=== PATIENT | male | born 1930 | race Caucasian/White ===

== ENCOUNTER 2016-11-17 10:03 | Inpatient (IN) | payer OTHER ==
--- NOTE | 2016-11-17 10:48 | PDOC ---
History of Present Illness - General Stated Complaint: FALL Time Seen by Provider: 11/17/16 10:14 History Source: Patient, Care Provider, Family (Daughter) Exam Limitations: Other (Confusion) - History of Present Illness Initial Comments: 11/17/16 11:02 Patient is an 85 yo male on [facility] who was found down and BIBA after an unwitnessed fall. Patient is confused and a poor historian with a changing and inconsistent story. Patient states he fell outside at 20:00 last night and was helped inside by a stranger. Caregiver states the patient did not answer the door this morning when she arrived and after she gained access to the home she found the patient lying on the floor beside the bed with the covers pulled on top of him. Patient claimed he was unable to get up or call out because of weakness. Patient was unsure if he struck his head, unclear on LOC and time and location of fall. Additional information was obtained from the daughter, Yesi ([phone]). 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 Patient lives alone and is moderately functional and oriented at baseline. He ambulates with the use of a cane or walker and has a caregiver assisting with ADL during week days but not at night. Daughter stated patient is more confused and less oriented that baseline. PCP Angie Past History - Past Medical History Allergies/Adverse Reactions: Allergies Allergy/AdvReac Type Severity Reaction Status Date / Time No Known Allergies Allergy Verified 11/17/16 12:03 Home Medications: Ambulatory Orders Levothyroxine [Synthroid -] 88 mcg PO DAILY 10/29/12 Metoprolol Succinate [Toprol XL -] 25 mg PO DAILY 10/29/12 Simvastatin [Zocor -] 20 mg PO HS 10/29/12 Lisinopril [Prinivil] 5 mg PO DAILY #0 tablet 11/02/12 Furosemide [Lasix] 20 mg PO ASDIR 11/17/16 Cancer: Yes (THROAT) Cardiac Disorders: Yes HTN: Yes Hypercholesterolemia: Yes Thyroid Disease: Yes - Surgical History Orthopedic Surgery: Yes (L. Leg) - Psycho/Social/Smoking Cessation Hx Suicidal Ideation: No Smoking Status: No Smoking History: Never smoked Have you smoked in the past 12 months: No Number of Cigarettes Smoked Daily: 0 Hx Alcohol Use: Yes (3 beers daily) Drug/Substance Use Hx: Yes Substance Use Type: Alcohol Hx Substance Use Treatment: No Review of Systems - Review of Systems Able to Perform ROS?: Yes (Limited by mental status) Comments:: ROS is difficult to obtain due to patients confusion GEN: Denies fever, chills, recent illness HEENTM: Denies sore throat, recent vision or hearing changes, ringing in ears Respiratory: Denies cough, shortness of breath Cardiac: Denies chest pain, LOC ABD/GI: Denies new abdominal pain, nausea, vomiting, diarrhea, constipation : Denies dysuria; Endorses urinary retention0 Musculoskeletal: Endorses pain to left forearm Integumentary: Denies diaphoresis, rashes, bruises Neurological: Denies DONALD, dizziness, weakness in ED but endorses weakness earlier , chronic left LE weakness and foot drop from previous injury All Other Systems Reviewed and Negative Is the patient limited Pashto proficient: No *Physical Exam - Physical Exam Comments: GENERAL: AAOx2 (self and situation but not to year), nourished and generally well appearing, NAD HEAD: 2kng2by abrasion to right forehead, no active bleeding or edema EYES: PERRLA, EOMI, sclera anicteric, conjunctiva clear, no raccoon eyes ENT: hearing grossly normal, 5x5mm laceration to superior aspect of left helix, TM intact b/l, no blood in external auditory canals b/l, no villarreal signs, nares patent, no nasal discharge, no congestion, MMM NECK: supple, normal ROM, no LAD, no JVD, no masses, no cervical tenderness RESP: speaking in full sentences, symmetrical chest expansion, no respiratory distress, lungs CTAB HEART: normal rate, regularly irregular rhythm, normal S1-S2, no MRG ABDOMEN: soft, NTND, no guarding, no rebound. EXTREMITIES: superficial 3 cm skin tear to proximal forearm at elbow, no active bleeding, normal ROM, left leg weakness and foot drop 2/2 previous injury/ surgery, tortuous varicose veins. NEUROLOGICAL: CN II-XII grossly intact, normal speech, normal gait, no focal sensorimotor deficits, UE/LE strength 5/5 b/l except as noted, sensation intact b/l UE/LE, no facial droop or decreased tone or sensation loss, normal finger-to -nose SKIN: warm, dry, normal turgor, no rashes or lesions noted. ED Treatment Course - LABORATORY CBC & Chemistry Diagram: 11/17/16 11:55 11/17/16 11:55 - RADIOLOGY Radiograph Interpretation: 11/17/16 12:23 EXAM: CT HEAD WITHOUT CONTRAST INDICATION: Fall. Head trauma. Confusion. TECHNIQUE: Contiguous axial CT images of the head were obtained without contrast. Coronal and sagittal reconstructions obtained. COMPARISON: 09/03/[address] FINDINGS: There is no acute intracranial hemorrhage or focal extra-axial collection. There is no compelling evidence of acute transcortical infarction at this time. MRI is much more sensitive in detecting acute infarctions. Small chronic infarcts are noted in the right parietal lobe, left occipital lobe and also within the anterior left frontal lobe extending towards the stephens radiata. There is generalized age-related cerebral and cerebellar parenchymal volume loss secondary prominence of the CSF spaces. There is no mass effect, midline shift or hydrocephalus. There is patchy hypoattenuation scattered within the cerebral white matter, gangliocapsular regions and thalami, most likely reflecting microvascular ischemic changes. There is dense calcific atherosclerosis along the intradural segments of the vertebral arteries, cavernous and supraclinoid segments of bilateral internal carotid arteries. The calvarium is intact. The visualized paranasal sinuses and mastoid air cells are clear. There is a defect in the anterior nasal septal, unchanged. There is a chronic deformity along the left orbital floor, unchanged. IMPRESSION: 1. No acute intracranial hemorrhage or acute skull fracture. No mass effect, midline shift or hydrocephalus. 2. Bilateral small chronic cerebral infarcts and microvascular ischemic changes as described above. [id number] RAD/CHEST X-RAY PORTABLE* AMS. Semierect portable chest x-ray. Comparison study October 29, 2012. Cardiomegaly. No evidence of pneumothorax. The pulmonary vasculature is normal. Left lower lung zone obscured by the cardiac silhouette, soft tissues of the chest. Degenerative changes in the region of the right greater tuberosity. Impression. Cardiomegaly. No evidence of CHF, pneumothorax, airspace opacities in the visualized lungs. Left lower lung zone obscured by the cardiac silhouette, soft tissues of the chest. 11/17/16 12:24 Medical Decision Making - Medical Decision Making 11/17/16 10:40 85 yo male found down for unknown duration after an unwitnessed fall and increased confusion over baseline, general weakness Ddx includes but is not limited to CVA, cardiac arrhythmia, ACS, metabolic derangement, infections (UTI, PNA), rhabdomyolysis Plan: IV, Monitor Fluids ECG CXR CBC, CMP, CPK cardiac enzymes UA CT head Monitor and reassess Consider admission Consider blood and urine cultures 11/17/16 12:19 CBC WBC 10.1 K/mm3 (4.0-10.0) H D 11/17/16 11:55 RBC 4.40 M/mm3 (4.00-5.60) 11/17/16 11:55 Hgb 14.8 GM/dL (11.7-16.9) 11/17/16 11:55 Hct 43.9 % (35.4-49) 11/17/16 11:55 MCV 99.8 fl (80-96) H 11/17/16 11:55 MCH 33.7 pg (25.7-33.7) 11/17/16 11:55 MCHC 33.8 g/dl (32.0-35.9) 11/17/16 11:55 RDW 12.4 % (11.9-15.9) 11/17/16 11:55 Plt Count 192 K/MM3 (134-434) D 11/17/16 11:55 MPV 8.5 fl (7.5-11.1) 11/17/16 11:55 Neutrophils % 79.2 % (42.8-82.8) 11/17/16 11:55 Lymphocytes % 9.9 % (8-40) D 11/17/16 11:55 Monocytes % 10.5 % (3.8-10.2) H 11/17/16 11:55 Eosinophils % 0.1 % (0-4.5) D 11/17/16 11:55 Basophils % 0.3 % (0-2.0) 11/17/16 11:55 Mild leukocytosis, not overly concerning Urine Test Results Urine Color Ltyellow 11/17/16 11:55 Urine Appearance Cloudy 11/17/16 11:55 Urine pH 6.0 (5.0-8.0) 11/17/16 11:55 Urine Protein 1+ (NEGATIVE) H 11/17/16 11:55 Urine Glucose (UA) Negative (NEGATIVE) 11/17/16 11:55 Urine Ketones 1+ (NEGATIVE) H 11/17/16 11:55 Urine Blood 2+ (NEGATIVE) H 11/17/16 11:55 Urine Nitrite Positive (NEGATIVE) 11/17/16 11:55 Urine Bilirubin Negative (NEGATIVE) 11/17/16 11:55 Ur Leukocyte Esterase 3+ (NEGATIVE) H 11/17/16 11:55 Positive for UTI with hematurea, possibly complicated, Start Rocephin 1g 11/17/16 12:23 CT shows no acute intracranial hemorrhage or acute skull fracture. No mass effect, midline shift or hydrocephalus. Bilateral small chronic cerebral infarcts and microvascular ischemic changes. CXR significant for cardiomegaly without evidence of CHF, pneumothorax, airspace opacities in the visualized lungs. Delirium on dementia in an elderly patient with evidence of UTI is mildly concerning, plan to consult with PCP regarding admission 11/17/16 12:42 Reassessed patient following 600 ml NS, Lungs CTAB, no difficulty breathing 11/17/16 13:15 CMP Sodium 135 mmol/L (136-145) L 11/17/16 11:55 Potassium 4.6 mmol/L (3.5-5.1) 11/17/16 11:55 Chloride 97 mmol/L (98-107) L 11/17/16 11:55 Carbon Dioxide 28 mmol/L (21-32) 11/17/16 11:55 Anion Gap 10 (8-16) 11/17/16 11:55 BUN 15 mg/dL (7-18) 11/17/16 11:55 Creatinine 1.0 mg/dL (0.7-1.3) 11/17/16 11:55 Creat Clearance w eGFR > 60 (>60) 11/17/16 11:55 Random Glucose 137 mg/dL (74-106) H D 11/17/16 11:55 Calcium 9.5 mg/dL (8.5-10.1) 11/17/16 11:55 Total Bilirubin 3.2 mg/dL (0.2-1.0) H D 11/17/16 11:55 AST 45 U/L (15-37) H D 11/17/16 11:55 ALT 26 U/L (12-78) 11/17/16 11:55 Alkaline Phosphatase 93 U/L (45-117) 11/17/16 11:55 Creatine Kinase 946 IU/L (39-308) H 11/17/16 11:55 Creatine Kinase Index 1.3 % (0.0-5.0) 11/17/16 11:55 CK-MB (CK-2) 13.030 ng/mL (0.5-3.6) H 11/17/16 11:55 Troponin I 0.15 ng/ml (0.00-0.05) H D 11/17/16 11:55 Total Protein 8.1 g/dl (6.4-8.2) 11/17/16 11:55 Albumin 3.9 g/dl (3.4-5.0) 11/17/16 11:55 Mild decreased sodium and chloride, should improve with NS bolus CK/BUN reassuring for CASIE from rhabdomyolysis Mild elevation of liver enzymes Elevated CK consistent with fall, concerning for rhabdomyolysis Elevation in cardiac enzymes, concerning for ACS Spoke with Dr. Bertram Teran (admittinig for Dr. Adams) who agreed with admission to inpatient Tele and requested that blood and urine cultures be sent Patient had just received Rocephin 1g prior to having blood cultures draw Ordered repeat Troponin Patient admitted and sent to the floor *DC/Admit/Observation/Transfer Diagnosis at time of Disposition: Confused, Elevation of cardiac enzymes UTI (urinary tract infection) Qualifiers: Urinary tract infection type: acute cystitis Hematuria presence: with hematuria Qualified Code(s): N30.01 - Acute cystitis with hematuria - Discharge Dispostion Admit: Yes
[2016-11-17] MEDS ORDERED: SODIUM CHLORIDE 1,000 ML IV STA (10:50)
--- NOTE | 2016-11-17 11:03 | PDOC ---
Attending Attestation - Resident Resident Name: Betty Jeffersonn - ED Attending Attestation I have performed the following: I have examined & evaluated the patient, The case was reviewed & discussed with the resident, I agree w/resident's findings & plan, Exceptions are as noted - Medical Decision Making 11/17/16 10:59 85 yo M h/o HTN HLD , hypothyroid afib, here s/p fall last pm. pt was on floor all night. lives alone, has home health aid during day 4/days/ week. unable to walk following floor because felt generalized weakness. h/o prior left foot drop ( old). he normally uses cane or walker. per aid. pt was found on the floor, unable to walk today. more confused. speech seems clear per aid. no recent f/c n/v. no recent falls. plan differential cva ( although nonfocal exam), dehyration electrolyte abnormality. infection such as uti or pna, plan labs ekg ct head r/o ich , cxr ua . coral admit tele possible synocpe, pt eval as pt can't walk and unsafe for dc home. <Margaret Pollock - Last Filed: 11/17/16 12:04> - HPI HPI: 11/17/16 12:15 The patient is a 85 year old male, ambulatory by walker, with a significant past medical history of HTN, HLD, Hypothyroidism, Atrial fibrillation, R foot drop, [place] (2016), CVA who presents to the emergency department S/P fall today. Patient states he fell on his L side and was unable to get up due to generalized weakness. As per aide, patient was found on the floor when she came to his home. Patient sustained L arm bruise and small abrasion to his forehead.. Patient denies any head trauma, LOC, nausea or vomiting. As per nursing informatics analyst, patient appears increasingly confused however speech is clear. He denies chest pain, headache or dizziness. He denies fever, chills, abdominal pain, nausea, vomit, diarrhea or constipation. He denies dysuria, frequency, urgency or hematuria. Allergies: NKA Past surgical history: L foot surgery Social history: Occasional alcohol consumption PCP: Dr. Adams - Physicial Exam PE: 11/17/16 12:15 GENERAL: Awake, alert, and oriented x2. Disoriented to year. In no acute distress HEAD: + Small abrasion to R forehead. EYES: PERRLA, EOMI, sclera anicteric, conjunctiva clear ENT: Auricles normal inspection, nares patent, Moist mucosa NECK: Normal ROM, supple, no lymphadenopathy, JVD, or masses LUNGS: Breath sounds equal, clear to auscultation bilaterally. No wheezes, and no crackles HEART: Regular rate and rhythm, normal S1 and S2, no murmurs, rubs or gallops ABDOMEN: Soft, nontender, normoactive bowel sounds. No guarding, no rebound. No masses EXTREMITIES: Full ROM, no edema. No clubbing or cyanosis. No cords, erythema, or tenderness. + L elbow superficial skin avulsion/ skin tear 1 inch in length. NEUROLOGICAL: Alert, awake, appropriate. Cranial nerves 2-12 intact. No deficits to light touch and temperature in face, upper extremities and lower extremities. No motor deficits in the in face, upper extremities and lower extremities. Normoreflexic in the upper and lower extremities. Normal speech. Toes are downgoing bilaterally. Gait not tested. Finger to nose intact. Visual rodriguez intact. SKIN: Warm, Dry, normal turgor, no rashes or lesions noted. - Medical Decision Making 11/17/16 12:15 CXR Impression. Cardiomegaly. No evidence of CHF, pneumothorax, airspace opacities in the visualized lungs. Left lower lung zone obscured by the cardiac silhouette , soft tissues of the chest. Reported By: Alphonso Shook MD Head CT IMPRESSION: 1. No acute intracranial hemorrhage or acute skull fracture. No mass effect, midline shift or hydrocephalus. 2. Bilateral small chronic cerebral infarcts and microvascular ischemic changes as described above. Reported By: Neftali Slater MD Documentation prepared by Yaima Sims, acting as biomedical equipment support specialist for Margaret Pollock MD <Yaima Sims - Last Filed: 11/17/16 12:18> Heart Score/ECG Review #1 General ECG Interpretation: Normal Rate (96), Normal Intervals, No acute ischemic changes 11/17/16 12:[address] elevation nor depression. - ECG Intrepretation Rhythm: Irregularly Irregular Comment:: 11/17/16 12:04 atrial fibrillation - [place]: Normal <Margaret Pollock - Last Filed: 11/17/16 12:04>
[2016-11-17 12:06] LABS: BASOPHIL 0.3 % (0-2.0); EOSINOPHIL 0.1 % (0-4.5); MCH 33.7 pg (25.7-33.7); MCHC 33.8 g/dl (32.0-35.9); MEAN CELL VOLUME 99.8 fl (80-96); MEAN PLT VOLUME 8.5 fl (7.5-11.1); NEUTROPHILS 79.2 % (42.8-82.8); PLATELET COUNT 192 K/MM3 (134-434); RDW 12.4 % (11.9-15.9); WHITE BLOOD COUNT 10.1 K/mm3 (4.0-10.0)
[2016-11-17 12:09] LABS: URINE APPEARANCE CLOUDY; URINE BILIRUBIN NEGATIVE (NEGATIVE); URINE BLOOD 2+ (NEGATIVE); URINE COLOR LTYELLOW; URINE GLUCOSE (UA) NEGATIVE (NEGATIVE); URINE KETONE 1+ (NEGATIVE); URINE NITRITE POSITIVE (NEGATIVE); URINE UROBILINOGEN NEGATIVE mg/dL (0.2-1.0)
[2016-11-17 12:11] LABS: URINE LEUK ESTERASE 3+ (NEGATIVE); URINE PROTEIN 1+ (NEGATIVE)
[2016-11-17 12:23] LABS: URINE HYALINE CAST 1 /lpf; URINE MUCUS RARE; URINE RBC 1 /hpf (0-3); URINE WBC 202 /hpf (3-5)
[2016-11-17 12:25] LABS: URINE BACTERIA MODERATE /hpf (NONE SEEN)
[2016-11-17 12:30] LABS: ALBUMIN 3.9 g/dl (3.4-5.0); ANION GAP 10 (8-16); CALCIUM 9.5 mg/dL (8.5-10.1); CO2 28 mmol/L (21-32); GLUCOSE,RANDOM 137 mg/dL (74-106); SGOT/AST 45 U/L (15-37)
[2016-11-17] MEDS ORDERED: CEFTRIAXONE 1 GM in DEXTROSE 5%-WATER - 100 ML IVPB ONE (12:31)
[2016-11-17 12:43] LABS: ALK PHOS 93 U/L (45-117); BILIRUBIN,TOTAL 3.2 mg/dL (0.2-1.0); CPK 946 IU/L (39-308); SGPT/ALT 26 U/L (12-78); TOT PROT 8.1 g/dl (6.4-8.2); TROPONIN I 0.15 ng/ml (0.00-0.05)
[2016-11-17] MEDS ORDERED: CEFTRIAXONE 50 ML ONE (13:21)
[2016-11-17] MEDS ORDERED: ASPIRIN 81 MG CHEWABLE TABLETS PO ONE (14:15)
[2016-11-17] MEDS ORDERED: ASPIRIN 81 MG CHEWABLE TABLETS ONE (14:57)
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
[2016-11-17] MEDS ORDERED: ONDANSETRON 4 MG/2 ML VIAL IVPB PRN (16:24)
[2016-11-17] MEDS ORDERED: SODIUM CHLORIDE 1,000 ML IV SCH (16:30)
[2016-11-17 17:44] VITALS: BMI 28.0
--- NOTE | 2016-11-17 21:01 | CON.CARD ---
Cardiology Consult (text) - Consultation Consultation Note: CC: elevated cardiac enzymes. 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 fall in setting of dizziness/weakness in legs trying to get up from chair. no loc. was on floor overnight, unable to pick himself up. prior to fall was already dizzy and had already almost fallen, but was caught by someone. prior to episode has not had decreased exercise capacity. States he has felt strong and has been walking regularly. no recent poor po intake. However, has resumed drinking about 2 beers a day.. Denies drinking extra on day of fall. endorses chronic cough with eating. otherwise denies infectious sx's. no f/c/s , n/v/d, h/a, congestion. LE edema improved from prior. no sob, orthopnea, pnd, cp, palps. sees me for cardio pmhx/pshx: per hpi social hx: etoh abuse, former smoker. Lives by himself with homemaker, fam hx; no cad or cardiomyopathy ros; per hpi, no rashes, Ambulatory Orders Levothyroxine [Synthroid -] 88 mcg PO DAILY 10/29/12 Metoprolol Succinate [Toprol XL -] 25 mg PO DAILY 10/29/12 Simvastatin [Zocor -] 20 mg PO HS 10/29/12 Lisinopril [Prinivil] 5 mg PO DAILY #0 tablet 11/02/12 Furosemide [Lasix] 20 mg PO ASDIR 11/17/16 CV meds based on my office notes: metoprolol succinate 25 mg/day, lisinopril 2.5 mg/day, aldactone 25 mg/day, eliquis 5 mg bid Current Medications Acetaminophen (Tylenol -) 650 mg PO Q4H PRN PRN Reason: FEVER OR PAIN Atorvastatin Calcium (Lipitor -) 10 mg PO HS [facility] Enoxaparin Sodium (Lovenox -) 40 mg SQ DAILY [facility] Sodium Chloride (Normal Saline -) 1,000 mls @ 100 mls/hr IV ASDIR NELSY Last Admin: 11/17/16 17:07 Dose: 100 mls/hr Ceftriaxone Sodium 1 gm/ (Dextrose) 50 mls @ 100 mls/hr IVPB DAILY [facility] Lactobacillus Acidophilus (Bacid -) 1 tab PO DAILY [facility] Levothyroxine Sodium (Synthroid -) 88 mcg PO DAILY@0700 [facility] Lisinopril (Prinivil) 5 mg PO DAILY [facility] Metoprolol Succinate (Toprol Xl -) 25 mg PO DAILY [facility] Ondansetron HCl (Zofran Injection) 4 mg IVPB Q6H PRN PRN Reason: NAUSEA Vital Signs - 24 hr 11/17/16 11/17/16 11/17/16 12:07 15:15 16:13 Temperature 97.7 F 98.7 F Pulse Rate 83 107 H Pulse Rate [ Left side Sitting] Pulse Rate [ Left side Standing] Pulse Rate [ 88 Left] Pulse Rate [ Supine] Respiratory 16 16 20 Rate Blood Pressure 143/70 156/86 Blood Pressure 130/60 [Arm] Blood Pressure [Left side Sitting] Blood Pressure [Left side Standing] Blood Pressure [Supine] O2 Sat by Pulse 94 L 99 Oximetry (%) 11/17/16 11/17/16 16:27 17:44 Temperature 97.2 F L Pulse Rate 109 H Pulse Rate [ 103 H Left side Sitting] Pulse Rate [ 105 H Left side Standing] Pulse Rate [ Left] Pulse Rate [ 88 Supine] Respiratory 18 Rate Blood Pressure 152/80 Blood Pressure [Arm] Blood Pressure 133/86 [Left side Sitting] Blood Pressure 171/88 [Left side Standing] Blood Pressure 141/61 [Supine] O2 Sat by Pulse Oximetry (%) Intake & Output 11/15/16 11/16/16 11/17/16 11/18/16 07:59 07:59 07:59 07:59 Weight 207 lb nad, calm scab on forehead and nose + dullness at left base, otherwise ctab. nl effort irregular nl s1, s2 2/6 sys murmur at apex. + bs soft nt nd ext without e/c/c + dp/pt no carotid bruits aaox3 no jaundice, diaphoresis. CBC, BMP 11/17/16 11:55 11/17/16 11:55 Laboratory Tests 11/17/16 11/17/16 11/17/16 11:55 11:55 13:35 Total Bilirubin 3.2 H D AST 45 H D ALT 26 Alkaline Phosphatase 93 Creatine Kinase 946 H 988 H Creatine Kinase Index 1.3 1.2 CK-MB (CK-2) 13.030 H 12.662 H Troponin I 0.15 H D 0.16 H ekg: afib with pvc's. incomplete lbbb. non-specific t wave ab. tele: afib. occasional breakthrough rvr to 120's. rare nsvt. cxr: left lower lung zone obscured. Echo 10/2015: Mild global HK (more prominent HK at basal and mid milner) EF 45-50% . Mild RV dil with mildly depressed sys function. Severe ANNELIESE. Mild , Mild AR. Borderline prolapse of anterior leaflet with moderate post directed MR. Moderate TR. Severe pHTN. Dilated IVC. (thought to be volume up at the time) cath 03/2015 [facility]: LVEDP 9. EF 40%. 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 presyncope - negative (but borderline) orthostatic vitals. HR 88 --> 105 - had been on aldactone as diuretic for le edema. LE edema here significantly improved. ? volume depletion in setting of infection and etoh. - PT - would check tsh - carotid u/s - tele - infectious eval/mgm't per pmd. pt complaining of cough with eating, unclear if dysphagia. elevated cardiac enzymes - intermediate trop elevation with flat trend in setting of rhabdo - ck 900's after being down on floor overnight. - can give gentle hydration if needed per pmd. 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 monitor closely on IVF. - con't lisinopril, metoprolol. consider uptitration tomorrow if continues to have breakthrough RVR. - con't daily weight, i/o's. monitor direction of sodium with ivf. non-obstructive cad, - not on ASA b/c on AC. holding AC for now while fall risk assessed. - has been off statin due to LDL suppression. would hold for now in setting of elevated ck. mod MR, - bp control as below. afib with h/o cva (on eliquis) - hold eliquis for now, while risk/benefit of AC clarified. - con't rate control with metoprolol. consider uptitration tomorrow if continues to have breakthrough RVR. htn, - borderline elevated. consider uptitration tomorrow if needed. etoh - cessation counseling.
[2016-11-17] MEDS: ACETAMINOPHEN 325 MG TABLET (FP) PO PRN (21:11)
--- NOTE | 2016-11-17 21:29 | EKG ---
Test Reason : Blood Pressure : / mmHG Vent. Rate : 096 BPM Atrial Rate : 085 BPM P-R Int : 000 ms QRS Dur : 106 ms QT Int : 374 ms P-R-T Axes : 000 015 087 degrees QTc Int : 472 ms ATRIAL FIBRILLATION WITH PREMATURE VENTRICULAR OR ABERRANTLY CONDUCTED COMPLEXES INCOMPLETE LEFT BUNDLE BRANCH BLOCK NONSPECIFIC ST AND T WAVE ABNORMALITY PROLONGED QT ABNORMAL ECG WHEN COMPARED WITH ECG OF 31-OCT-2012 09:51, NO SIGNIFICANT CHANGE WAS FOUND Confirmed by YEVGENIY NUNES MD ([id number]) on 11/17/2016 9:29:02 PM Referred By: Confirmed By:YEVGENIY NUNES MD
[2016-11-17 21:51] LABS: TROPONIN I 0.2 ng/ml (0.00-0.05)
[2016-11-17] MEDS ORDERED: ATORVASTATIN CA 10 MG TABLET (FP) PO SCH (22:00)
[2016-11-18] MEDS: LEVOTHYROXINE NA 88 MCG TABLET (FP) PO SCH (06:30)
[2016-11-18 07:59] LABS: BASOPHIL 0.4 % (0-2.0); EOSINOPHIL 3.3 % (0-4.5); MCH 34.1 pg (25.7-33.7); MCHC 33.8 g/dl (32.0-35.9); MEAN CELL VOLUME 100.8 fl (80-96); NEUTROPHILS 72.1 % (42.8-82.8); PLATELET COUNT 153 K/MM3 (134-434); RDW 12.3 % (11.9-15.9); WHITE BLOOD COUNT 5.7 K/mm3 (4.0-10.0)
[2016-11-18 08:25] LABS: ALK PHOS 68 U/L (45-117); ANION GAP 10 (8-16); BILIRUBIN,TOTAL 1.9 mg/dL (0.2-1.0); CO2 25 mmol/L (21-32); CREATININE 0.9 mg/dL (0.7-1.3); GLUCOSE,RANDOM 118 mg/dL (74-106); MAGNESIUM 1.9 mg/dL (1.8-2.4); PHOSPHOROUS 1.8 mg/dL (2.5-4.9); SGOT/AST 46 U/L (15-37); SGPT/ALT 21 U/L (12-78); TOT PROT 6.1 g/dl (6.4-8.2)
[2016-11-18 08:26] LABS: TROPONIN I 0.14 ng/ml (0.00-0.05)
[2016-11-18] MEDS ORDERED: POTASSIUM PHOSPHATE 16 MM in SODIUM CHLORIDE 250 ML IVPB ONE (09:15)
[2016-11-18] MEDS ORDERED: DEXTROSE 5%-WATER - 50 ML IVPB ONE (09:45)
[2016-11-18] MEDS ORDERED: cefTRIAXone SODIUM 1 GM VIAL ONE (09:45)
[2016-11-18] MEDS ORDERED: PT OWN MED DRAWER 7, Y5N ONE (09:46)
[2016-11-18] MEDS: LISINOPRIL 5 MG TABLET (FP) PO SCH (09:56)
[2016-11-18] MEDS: METOPROLOL SUCCINATE 25 MG TAB.SR.24H (FP) PO SCH (09:56)
[2016-11-18] MEDS: LACTOBACILLUS ACIDOPHILUS 1 EACH TAB (FP) PO SCH (09:56)
[2016-11-18] MEDS: CEFTRIAXONE 1 GM in DEXTROSE 5%-WATER - 50 ML IVPB SCH (09:57)
[2016-11-18] MEDS ORDERED: ENOXAPARIN NA (PORCINE) 40 MG/0.4 ML DISP.SYRIN SQ SCH (10:00)
--- NOTE | 2016-11-18 12:36 | PN ---
Progress Note, Physician Chief Complaint: Mr Gutierrez says he is feeling fine. Denies cp, sob, n/v. Says he is no longer weak. Happy to receive communion today. - Current Medication List Current Medications: Active Medications Acetaminophen (Tylenol -) 650 mg PO Q4H PRN PRN Reason: FEVER OR PAIN Last Admin: 11/17/16 21:11 Dose: 650 mg Atorvastatin Calcium (Lipitor -) 10 mg PO HS [facility] Last Admin: 11/17/16 21:11 Dose: 10 mg Enoxaparin Sodium (Lovenox -) 40 mg SQ DAILY [facility] Last Admin: 11/18/16 09:56 Dose: 40 mg Sodium Chloride (Normal Saline -) 1,000 mls @ 100 mls/hr IV ASDIR [facility] Last Admin: 11/17/16 17:07 Dose: 100 mls/hr Ceftriaxone Sodium 1 gm/ (Dextrose) 50 mls @ 100 mls/hr IVPB DAILY [facility] Last Admin: 11/18/16 09:57 Dose: 100 mls/hr Potassium Phosphate 16 mm/ (Sodium Chloride) 255.3333 mls @ 63.83 mls/hr IVPB ONCE ONE PRN Reason: 16 MM/4 HR Stop: 11/18/16 13:15 Last Admin: 11/18/16 10:44 Dose: 63.83 mls/hr Lactobacillus Acidophilus (Bacid -) 1 tab PO DAILY [facility] Last Admin: 11/18/16 09:56 Dose: 1 tab Levothyroxine Sodium (Synthroid -) 88 mcg PO DAILY@0700 [facility] Last Admin: 11/18/16 06:30 Dose: 88 mcg Lisinopril (Prinivil) 5 mg PO DAILY [facility] Last Admin: 11/18/16 09:56 Dose: 5 mg Metoprolol Succinate (Toprol Xl -) 25 mg PO DAILY [facility] Last Admin: 11/18/16 09:56 Dose: 25 mg Ondansetron HCl (Zofran Injection) 4 mg IVPB Q6H PRN PRN Reason: NAUSEA - Objective Vital Signs: Vital Signs Temperature 36.9 C 11/18/16 09:00 Pulse Rate 88 11/18/16 09:00 Respiratory Rate 20 11/18/16 09:00 Blood Pressure 127/69 11/18/16 09:00 O2 Sat by Pulse Oximetry (%) 96 11/18/16 09:00 Constitutional: Yes: Well Nourished, No Distress, Calm Cardiovascular: Yes: Pulse Irregular. No: Tachycardia, Gallop, Murmur, Rub Respiratory: Yes: Regular, CTA Bilaterally. No: Rales, Rhonchi, Wheezes Gastrointestinal: Yes: Normal Bowel Sounds, Soft. No: Distention, Tenderness Extremities: Yes: WNL Edema: No Labs: CBC, BMP 11/18/16 07:00 11/18/16 07:00 Problem List - Problems (1) UTI (urinary tract infection) Code(s): N39.0 - URINARY TRACT INFECTION, SITE NOT SPECIFIED Qualifiers: Urinary tract infection type: acute cystitis Hematuria presence: with hematuria Qualified Code(s): N30.01 - Acute cystitis with hematuria (2) Syncope and collapse Code(s): R55 - SYNCOPE AND COLLAPSE (3) Rhabdomyolysis Code(s): M62.82 - RHABDOMYOLYSIS Qualifiers: Rhabdomyolysis type: non-traumatic Qualified Code(s): M62.82 - Rhabdomyolysis (4) Elevation of cardiac enzymes Code(s): R74.8 - ABNORMAL LEVELS OF OTHER SERUM ENZYMES (5) HTN (hypertension) Code(s): I10 - ESSENTIAL (PRIMARY) HYPERTENSION (6) Hypothyroid Code(s): E03.9 - HYPOTHYROIDISM, UNSPECIFIED (7) HLD (hyperlipidemia) Code(s): E78.5 - HYPERLIPIDEMIA, UNSPECIFIED (8) Atrial fibrillation Code(s): I48.91 - UNSPECIFIED ATRIAL FIBRILLATION Qualifiers: Atrial fibrillation type: chronic Qualified Code(s): I48.2 - Chronic atrial fibrillation Assessment/Plan (1) UTI (urinary tract infection) Assessment/Plan: -urine culture growing MSSA -currently on rocephin day 2 -should be sufficient for coverage, await sensitivities to see if can switch to pcn like dicloxacillin or 1st generation cephalosporin -will also await blood culture results to make sure patient is not bacteremic Code(s): N39.0 - URINARY TRACT INFECTION, SITE NOT SPECIFIED Qualifiers: Urinary tract infection type: acute cystitis Hematuria presence: with hematuria Qualified Code(s): N30.01 - Acute cystitis with hematuria (2) Syncope and collapse Assessment/Plan: -carotid ultrasound reviewed -patient not orthostatic by BP but with increased HR -appreciate cardiology assistance -follow up ECHO -continue PT -suspect will need SNF Code(s): R55 - SYNCOPE AND COLLAPSE (3) Rhabdomyolysis Assessment/Plan: -improved -continue IVF currently Code(s): M62.82 - RHABDOMYOLYSIS Qualifiers: Rhabdomyolysis type: non-traumatic Qualified Code(s): M62.82 - Rhabdomyolysis (4) Elevation of cardiac enzymes Assessment/Plan: -appreciate cardiology assistance -continue medical management Code(s): R74.8 - ABNORMAL LEVELS OF OTHER SERUM ENZYMES (5) HTN (hypertension) Assessment/Plan: -continue lisinopril and toprol xl -hold lasix secondary to above Code(s): I10 - ESSENTIAL (PRIMARY) HYPERTENSION (6) Hypothyroid Assessment/Plan: -continue synthroid Code(s): E03.9 - HYPOTHYROIDISM, UNSPECIFIED (7) HLD (hyperlipidemia) Assessment/Plan: -continue statin Code(s): E78.5 - HYPERLIPIDEMIA, UNSPECIFIED (8) Atrial fibrillation Assessment/Plan: -heart rate irregularly irregular on exam -continue toprol xl -patient on eliquis per cardiology note -will d/w cardiology about restarting Code(s): I48.91 - UNSPECIFIED ATRIAL FIBRILLATION Qualifiers: Atrial fibrillation type: chronic Qualified Code(s): I48.2 - Chronic atrial fibrillation
--- NOTE | 2016-11-18 12:47 | PN ---
Progress Note (short form) - Note Progress Note: CC: elevated cardiac enzymes. S: feels well today. ambulating with PT without dizziness. no cp, palps, sob. + cough persists. occurring mainly when drinking liquids. Current Medications Acetaminophen (Tylenol -) 650 mg PO Q4H PRN PRN Reason: FEVER OR PAIN Last Admin: 11/17/16 21:11 Dose: 650 mg Atorvastatin Calcium (Lipitor -) 10 mg PO HS [facility] Last Admin: 11/17/16 21:11 Dose: 10 mg Enoxaparin Sodium (Lovenox -) 40 mg SQ DAILY [facility] Last Admin: 11/18/16 09:56 Dose: 40 mg Sodium Chloride (Normal Saline -) 1,000 mls @ 100 mls/hr IV ASDIR [facility] Last Admin: 11/17/16 17:07 Dose: 100 mls/hr Ceftriaxone Sodium 1 gm/ (Dextrose) 50 mls @ 100 mls/hr IVPB DAILY [facility] Last Admin: 11/18/16 09:57 Dose: 100 mls/hr Potassium Phosphate 16 mm/ (Sodium Chloride) 255.3333 mls @ 63.83 mls/hr IVPB ONCE ONE PRN Reason: 16 MM/4 HR Stop: 11/18/16 13:15 Last Admin: 11/18/16 10:44 Dose: 63.83 mls/hr Lactobacillus Acidophilus (Bacid -) 1 tab PO DAILY [facility] Last Admin: 11/18/16 09:56 Dose: 1 tab Levothyroxine Sodium (Synthroid -) 88 mcg PO DAILY@0700 [facility] Last Admin: 11/18/16 06:30 Dose: 88 mcg Lisinopril (Prinivil) 5 mg PO DAILY [facility] Last Admin: 11/18/16 09:56 Dose: 5 mg Metoprolol Succinate (Toprol Xl -) 25 mg PO DAILY [facility] Last Admin: 11/18/16 09:56 Dose: 25 mg Ondansetron HCl (Zofran Injection) 4 mg IVPB Q6H PRN PRN Reason: NAUSEA Vital Signs - 24 hr 11/17/16 11/17/16 11/17/16 15:15 16:13 16:27 Temperature 98.7 F Pulse Rate 107 H Pulse Rate [ 103 H Left side Sitting] Pulse Rate [ 105 H Left side Standing] Pulse Rate [ 88 Left] Pulse Rate [ 88 Supine] Respiratory 16 20 Rate Blood Pressure 156/86 Blood Pressure 130/60 [Arm] Blood Pressure 133/86 [Left side Sitting] Blood Pressure 171/88 [Left side Standing] Blood Pressure 141/61 [Supine] O2 Sat by Pulse 99 Oximetry (%) 11/17/16 11/17/16 11/18/16 17:44 21:00 01:00 Temperature 97.2 F L 97.6 F 98.4 F Pulse Rate 109 H 86 98 H Pulse Rate [ Left side Sitting] Pulse Rate [ Left side Standing] Pulse Rate [ Left] Pulse Rate [ Supine] Respiratory 18 20 18 Rate Blood Pressure 152/80 121/67 115/74 Blood Pressure [Arm] Blood Pressure [Left side Sitting] Blood Pressure [Left side Standing] Blood Pressure [Supine] O2 Sat by Pulse 96 Oximetry (%) 11/18/16 11/18/16 11/18/16 05:36 05:37 09:00 Temperature 98.5 F Pulse Rate 88 Pulse Rate [ Left side Sitting] Pulse Rate [ Left side Standing] Pulse Rate [ Left] Pulse Rate [ Supine] Respiratory 20 Rate Blood Pressure 138/64 138/99 127/69 Blood Pressure [Arm] Blood Pressure [Left side Sitting] Blood Pressure [Left side Standing] Blood Pressure [Supine] O2 Sat by Pulse 96 Oximetry (%) Intake & Output 11/16/16 11/17/16 11/18/16 11/19/16 07:59 07:59 07:59 07:59 Intake Total 550 380 Balance 550 380 Weight 209 lb 4 oz nad, calm scab on forehead and nose ctab. nl effort irregular nl s1, s2 2/6 sys murmur at apex. + bs soft nt nd ext without e/c/c + dp/pt no carotid bruits aaox3 no jaundice, diaphoresis. CBC, BMP 11/18/16 07:00 11/18/16 07:00 ekg: afib with pvc's. incomplete lbbb. non-specific t wave ab. tele: rate controlled afib, 70's-100's. frequent ectopy vs. aberrant conduction (pvc's, couplets, triplets). cxr: left lower lung zone obscured. Echo 10/2015: Mild global HK (more prominent HK at basal and mid milner) EF 45-50% . Mild RV dil with mildly depressed sys function. Severe ANNELIESE. Mild , Mild AR. Borderline prolapse of anterior leaflet with moderate post directed MR. Moderate TR. Severe pHTN. Dilated IVC. (thought to be volume up at the time) cath 03/2015 [facility]: LVEDP 9. EF 40%. 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 presyncope - negative (but borderline) orthostatic vitals. HR 88 --> 105 - had been on aldactone as diuretic for le edema. LE edema here significantly improved. ? volume depletion in setting of infection and etoh. - PT - would check tsh - carotid u/s pending - tele -+ uti elevated cardiac enzymes - intermediate trop elevation with flat trend in setting of rhabdo - ck 900's after being down on floor overnight (unable to get up from fall). - no need for further ischemic work up at this time. non-obstructive cad, - not on ASA b/c has been on AC. - has been off statin due to LDL suppression. would hold for now in setting of elevated ck. 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 monitor closely on IVF. - con't lisinopril, metoprolol. - 11/18 Na normalized, would decrease rate of IVF and stop this evening. repeat pa/lat cxr in am to better visualize left lung base. (improved exam today) - con't daily weight, i/o's. afib with h/o cva (on eliquis) - eliquis initially held in setting of fall. Had pt eval --> high fall risk, inpatient rehab recommended. Discussed with nursing today and patient reliable in regards to calling for help when he needs to ambulate. Given that he will be in monitored setting here and then in rehab will resume eliquis this evening. Can reevaluate risk/benefit again once fall risk reassessed after rehab. - con't rate control with metoprolol. rates improving. patient with frequent ventricular ectopy, unclear if intermittently aberrant conduction. con't to monitor. if persists, consider repeat echo. Otherwise can repeat echo as outpatient. - lyte repletion prn. mod MR, - bp control as below. htn, - patient bp typically runs low. currently good bp's on current regimen, continue. etoh - cessation counseling.
[2016-11-18] MEDS: SODIUM CHLORIDE 1,000 ML IV SCH ×2 (14:38→21:14)
[2016-11-18] MEDS: ACETAMINOPHEN 325 MG TABLET (FP) PO PRN ×2 (14:44→21:10)
[2016-11-18] MEDS: APIXABAN 5 MG TABLET PO SCH (21:09)
[2016-11-19] MEDS: LEVOTHYROXINE NA 88 MCG TABLET (FP) PO SCH (06:01)
[2016-11-19 06:59] LABS: BASOPHIL 0.6 % (0-2.0); MCH 33.9 pg (25.7-33.7); MCHC 33.7 g/dl (32.0-35.9); MEAN CELL VOLUME 100.8 fl (80-96); NEUTROPHILS 65.9 % (42.8-82.8); PLATELET COUNT 145 K/MM3 (134-434); RDW 12.5 % (11.9-15.9); WHITE BLOOD COUNT 5.1 K/mm3 (4.0-10.0)
[2016-11-19 07:09] LABS: ANION GAP 3 (8-16); CO2 29 mmol/L (21-32); CREATININE 0.8 mg/dL (0.7-1.3); GLUCOSE,RANDOM 130 mg/dL (74-106); PHOSPHOROUS 2.3 mg/dL (2.5-4.9)
[2016-11-19 07:12] LABS: ALBUMIN 2.7 g/dl (3.4-5.0); BILIRUBIN,DIRECT 0.3 mg/dL (0.0-0.2); BILIRUBIN,TOTAL 1.1 mg/dL (0.2-1.0)
[2016-11-19 07:13] LABS: TOT PROT 5.7 g/dl (6.4-8.2)
[2016-11-19 07:18] LABS: THYROID STIMULATING HORMONE 3.46 uIU/ml (0.358-3.74)
[2016-11-19] MEDS ORDERED: DEXTROSE 5%-WATER - 50 ML IVPB ONE (09:11)
[2016-11-19] MEDS ORDERED: cefTRIAXone SODIUM 1 GM VIAL ONE (09:11)
[2016-11-19] MEDS: CEFTRIAXONE 1 GM in DEXTROSE 5%-WATER - 50 ML IVPB SCH (09:15)
[2016-11-19] MEDS: LISINOPRIL 5 MG TABLET (FP) PO SCH (09:15)
[2016-11-19] MEDS: LACTOBACILLUS ACIDOPHILUS 1 EACH TAB (FP) PO SCH (09:15)
[2016-11-19] MEDS: APIXABAN 5 MG TABLET PO SCH ×2 (09:15→21:39)
[2016-11-19] MEDS: METOPROLOL SUCCINATE 25 MG TAB.SR.24H (FP) PO SCH (09:16)
[2016-11-19] MEDS: ACETAMINOPHEN 325 MG TABLET (FP) PO PRN ×2 (09:18→19:49)
--- NOTE | 2016-11-19 10:51 | PN ---
Progress Note (short form) - Note Progress Note: S: feels well today. no cp, palps, sob dizzy Current Medications Generic Name Dose Route Start Last Admin Trade Name Freq PRN Reason Stop Dose Admin Acetaminophen 650 mg 11/17/16 16:24 11/19/16 09:18 Tylenol - PO 650 mg Q4H PRN Administration FEVER OR PAIN Apixaban 5 mg 11/18/16 22:00 11/19/16 09:15 Eliquis - PO 5 mg BID NELSY Administration Ceftriaxone Sodium 1 gm/ 50 mls @ 100 mls/hr 11/18/16 10:00 11/19/16 09:15 Dextrose IVPB 100 mls/hr DAILY NELSY Administration Lactobacillus Acidophilus 1 tab 11/18/16 10:00 11/19/16 09:15 Bacid - PO 1 tab DAILY NELSY Administration Levothyroxine Sodium 88 mcg 11/18/16 07:00 11/19/16 06:01 Synthroid - PO 88 mcg DAILY@0700 NELSY Administration Lisinopril 5 mg 11/18/16 10:00 11/19/16 09:15 Prinivil PO 5 mg DAILY NELSY Administration Metoprolol Succinate 25 mg 11/18/16 10:00 11/19/16 09:16 Toprol Xl - PO 25 mg DAILY NELSY Administration Ondansetron HCl 4 mg 11/17/16 16:24 Zofran Injection IVPB Q6H PRN NAUSEA Potassium Phos/Sodium Phos 1 packet 11/19/16 10:30 Phos-Nak Packet - PO BID NELSY Vital Signs Period Temp Pulse Resp BP Sys/Yañez Pulse Ox Last 24 Hr 97.7 F-98.2 F 68-84 18-20 98-146/56-80 97-97 nad,calm no jvd ctab. nl effort irregular nl s1, s2 2/6 sys murmur at apex. + bs soft nt nd ext without e/c/c aaox3 no jaundice, diaphoresis. CBC, BMP 11/19/16 05:49 11/19/16 05:49 ekg: afib with pvc's. incomplete lbbb. non-specific t wave ab. tele: rate controlled afib cxr: left lower lung zone obscured. Echo 10/2015: Mild global HK (more prominent HK at basal and mid milner) EF 45-50% . Mild RV dil with mildly depressed sys function. Severe ANNELIESE. Mild , Mild AR. Borderline prolapse of anterior leaflet with moderate post directed MR. Moderate TR. Severe pHTN. Dilated IVC. (thought to be volume up at the time) echo 11/2016: tds, mod-sev dec lvef, global hk, nl rv, mod anneliese, mild-mod mr, mod tr, mild phtn, mild-mod ar, mild as, mild ao root dil cath 03[facility] 9. EF 40%. 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 presyncope - negative orthostatic vitals - had been on aldactone as diuretic for le edema. LE edema here significantly improved. ? volume depletion in setting of infection and etoh. No other cardiac etiology apparent. - PT elevated cardiac enzymes - intermediate trop elevation with flat trend in setting of rhabdo - ck 900's after being down on floor overnight (unable to get up from fall). - no need for further ischemic work up at this time. non-obstructive cad, - not on ASA b/c has been on AC. - has been off statin due to LDL suppression. would hold for now in setting of elevated ck. 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 afib with h/o cva (on eliquis) - eliquis initially held in setting of fall. Had pt eval --> high fall risk, inpatient rehab recommended. Discussed with nursing today and patient reliable in regards to calling for help when he needs to ambulate. Given that he will be in monitored setting here and then in rehab have resumed eliquis. - con't rate control with metoprolol. mod MR -stable htn, - patient bp typically runs low. currently good bp's on current regimen, continue. etoh - cessation counseling. cardiac wade remains stable
--- NOTE | 2016-11-19 10:58 | PN ---
Progress Note, Physician Chief Complaint: Mr Gutierrez is without complaint. No cp, sob, n/v. - Current Medication List Current Medications: Active Medications Acetaminophen (Tylenol -) 650 mg PO Q4H PRN PRN Reason: FEVER OR PAIN Last Admin: 11/19/16 09:18 Dose: 650 mg Apixaban (Eliquis -) 5 mg PO BID [facility] Last Admin: 11/19/16 09:15 Dose: 5 mg Ceftriaxone Sodium 1 gm/ (Dextrose) 50 mls @ 100 mls/hr IVPB DAILY [facility] Last Admin: 11/19/16 09:15 Dose: 100 mls/hr Lactobacillus Acidophilus (Bacid -) 1 tab PO DAILY [facility] Last Admin: 11/19/16 09:15 Dose: 1 tab Levothyroxine Sodium (Synthroid -) 88 mcg PO DAILY@0700 [facility] Last Admin: 11/19/16 06:01 Dose: 88 mcg Lisinopril (Prinivil) 5 mg PO DAILY [facility] Last Admin: 11/19/16 09:15 Dose: 5 mg Metoprolol Succinate (Toprol Xl -) 25 mg PO DAILY [facility] Last Admin: 11/19/16 09:16 Dose: 25 mg Ondansetron HCl (Zofran Injection) 4 mg IVPB Q6H PRN PRN Reason: NAUSEA Potassium Phos/Sodium Phos (Phos-Nak Packet -) 1 packet PO BID [facility] - Objective Vital Signs: Vital Signs Temperature 36.5 C 11/19/16 10:00 Pulse Rate 68 11/19/16 10:00 Respiratory Rate 20 11/19/16 10:00 Blood Pressure 142/75 11/19/16 10:00 O2 Sat by Pulse Oximetry (%) 97 11/19/16 09:00 Constitutional: Yes: Well Nourished, No Distress, Calm Cardiovascular: Yes: Pulse Irregular. No: Tachycardia, Gallop, Murmur, Rub Respiratory: Yes: Regular, CTA Bilaterally. No: Rales, Rhonchi, Wheezes Gastrointestinal: Yes: Normal Bowel Sounds, Soft. No: Distention, Tenderness Extremities: Yes: WNL Edema: No Labs: CBC, BMP 11/19/16 05:49 11/19/16 05:49 Problem List - Problems (1) UTI (urinary tract infection) Code(s): N39.0 - URINARY TRACT INFECTION, SITE NOT SPECIFIED Qualifiers: Urinary tract infection type: acute cystitis Hematuria presence: with hematuria Qualified Code(s): N30.01 - Acute cystitis with hematuria (2) Syncope and collapse Code(s): R55 - SYNCOPE AND COLLAPSE (3) Rhabdomyolysis Code(s): M62.82 - RHABDOMYOLYSIS Qualifiers: Rhabdomyolysis type: non-traumatic Qualified Code(s): M62.82 - Rhabdomyolysis (4) Elevation of cardiac enzymes Code(s): R74.8 - ABNORMAL LEVELS OF OTHER SERUM ENZYMES (5) HTN (hypertension) Code(s): I10 - ESSENTIAL (PRIMARY) HYPERTENSION (6) Hypothyroid Code(s): E03.9 - HYPOTHYROIDISM, UNSPECIFIED (7) HLD (hyperlipidemia) Code(s): E78.5 - HYPERLIPIDEMIA, UNSPECIFIED (8) Atrial fibrillation Code(s): I48.91 - UNSPECIFIED ATRIAL FIBRILLATION Qualifiers: Atrial fibrillation type: chronic Qualified Code(s): I48.2 - Chronic atrial fibrillation Assessment/Plan (1) UTI (urinary tract infection) Assessment/Plan: -urine culture growing MSSA -currently on rocephin day 3 -awaiting sensitivities Code(s): N39.0 - URINARY TRACT INFECTION, SITE NOT SPECIFIED Qualifiers: Urinary tract infection type: acute cystitis Hematuria presence: with hematuria Qualified Code(s): N30.01 - Acute cystitis with hematuria (2) Syncope and collapse Assessment/Plan: -resolved -will need SNF -cardiology following Code(s): R55 - SYNCOPE AND COLLAPSE (3) Rhabdomyolysis Assessment/Plan: -will stop IVF today -recheck ck in am Code(s): M62.82 - RHABDOMYOLYSIS Qualifiers: Rhabdomyolysis type: non-traumatic Qualified Code(s): M62.82 - Rhabdomyolysis (4) Elevation of cardiac enzymes Assessment/Plan: -appreciate cardiology assistance -continue medical management Code(s): R74.8 - ABNORMAL LEVELS OF OTHER SERUM ENZYMES (5) HTN (hypertension) Assessment/Plan: -continue lisinopril and toprol xl -holding aldactone currently -per cardiology can restart on discharge Code(s): I10 - ESSENTIAL (PRIMARY) HYPERTENSION (6) Hypothyroid Assessment/Plan: -continue synthroid Code(s): E03.9 - HYPOTHYROIDISM, UNSPECIFIED (7) HLD (hyperlipidemia) Assessment/Plan: -continue statin Code(s): E78.5 - HYPERLIPIDEMIA, UNSPECIFIED (8) Atrial fibrillation Assessment/Plan: -rate controlled -eliquis restarted Code(s): I48.91 - UNSPECIFIED ATRIAL FIBRILLATION Qualifiers: Atrial fibrillation type: chronic Qualified Code(s): I48.2 - Chronic atrial fibrillation (9) Cough -cardiology noted that has cough with swallowing -speech therapy consult to evaluate for aspiration Dispo -possible discharge tomorrow to SNF
--- NOTE | 2016-11-19 11:13 | CONSULT ---
Admitting History and Physical - Primary Care Physician PCP: Bertram Teran - Admission History of Present Illness: 85 yo presented to ER with fall and found to have UTI. Selected Entries 11/18/16 11/18/16 11/18/16 01:00 09:00 09:46 Breakfast 75% Lunch Supper Temperature 98.4 F 98.5 F 11/18/16 11/18/16 11/18/16 13:22 14:21 18:00 Breakfast Lunch 75% Supper 100% Temperature 98.1 F 11/18/16 11/19/16 11/19/16 22:00 01:32 06:00 Breakfast Lunch Supper Temperature 98.2 F 97.9 F 98.1 F 11/19/16 11/19/16 09:00 10:00 Breakfast 100% Lunch Supper Temperature 97.7 F Laboratory Tests 11/17/16 11/18/16 11/19/16 11:55 07:00 05:49 WBC 10.1 H D 5.7 D 5.1 History Source: Patient, Family Member, Medical Record Limitations to Obtaining History: Other (resistent to interview and PO trials. He told me he had throat cancer a year ago, followed at [facility]. They wanted to take out his vocal cords but did RT instead. His daughter reports occasional coughing with PO intake.) - Past Medical History Cardiovascular: Yes: HTN, Hyperlipdemia Endocrine: Yes: Hypothyroidism - Past Surgical History Past Surgical History: Yes: Hernia Repair - Smoking History Smoking history: Never smoked Have you smoked in the past 12 months: No Aproximately how many cigarettes per day: 0 - Alcohol/Substance Use Hx Alcohol Use: Yes (3 beers daily) History of Substance Use: reports: None - Social History ADL: Independent History of Recent Travel: No History - Admission Reason For Visit: UTI,CONFUSION,ELEVATION OF CARDIAC ENZYMES - Diagnostics X-ray: Report Reviewed CT Scan: Report Reviewed (m/v changes) - General Mental Status: Awake and Alert, Able to Follow Commands, Combative (verbally. resistent) Attention: Intact Ability to Follow Directions: Fair Head/Neck Control: Good - Hearing Hearing: Impaired Hearing Aide: No With Patient: No Speech Evaluation - Communication Primary Language: CZECH Communication: Yes: Simple Responses - Speech Production Able to Make Needs Known: Yes: Mildly Impaired Intelligibility: Yes: Mildly Impaired - Speech Characteristics Voice Loudness: Mildly Soft/Quiet Voice Pitch: Yes: Limited Variation Voice Phonatory-based Quality: Yes: Dysphonia, Vocal Wetness Speech Clarity: < 100% Nasal Resonance: Normal Articulation: Yes: Precise - Language/Auditory Comprehension Follows: Yes: 1 Stage Simple Commands - Swallow Evaluation/Bedside Assessment Current Nutritional Intake: Regular, Thin Liquids Oral Secretions: Yes: WFL Dentition: Yes: Edentulous Facial Symmetry at Rest: Symmetrical Facial Symmetry on Retraction: Symmetrical Pucker Lips: Normal Smile: Normal Lingual Movement: Normal, Symmetric Lingual Speed of Movement: Normal Lingual Movement Strgth Against Opposition: Normal Lingual Movement Characteristics: Normal Velopharyngeal Movement: Normal Laryngeal Elevation: WFL Laryngeal Movement: Able to Palpate Labial Seal: WFL Chewing: WFL (refused trial) Oral Prep Time: WFL A-P Transit: WFL Timing of Swallow: WFL Coughing/Throat Clear: Yes (throat clearing,cough intermittently) Recommendations - Speech Evaluation, Impression/Plan Impression: 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 Denies dysphagia. Resistant to interview and po trials, stating "I'M FINE!!!!". Dysphonic.Intermittent throat clearing/cough. Pt would benefit from MBS to r/o stasis/aspiration, and to learn compensatory swallowing strategies as indicated.Additionally, pt would benefit from swallowing tx to learn exercises to maintain swallowing function, which often deteriorates with time after RT/ with scarring and restriction of laryngeal/pharyngeal function. - Dysphagia Impressions/Plan Dysphagia Impressions: Risk of Aspiration, Suspect Aspiration (possibly, intermittent.) *Silent aspiration: cannot be R/O at bedside Dysphagia Treatment Plan: Other (monitor po tolerance,fevere, pulm status, sufficient po intake,cough, throat clearing.) Recommendations: Modified Barium Swallow (as in pt or out pt, if more compliant. ), Other (swallowing tx as out pt.)
[2016-11-19] MEDS: NAPH,MB-DB/K PH,MBDB POWDER PACKET PO SCH ×2 (11:30→21:39)
[2016-11-19 13:25] LABS: URIC ACID 7.5 mg/dL (2.6-7.2)
[2016-11-19] MEDS: predniSONE 10 MG TABLET (UD) PO SCH (17:57)
[2016-11-20] MEDS: ACETAMINOPHEN 325 MG TABLET (FP) PO PRN ×2 (01:17→05:49)
[2016-11-20] MEDS: LEVOTHYROXINE NA 88 MCG TABLET (FP) PO SCH (06:10)
[2016-11-20 07:42] LABS: BASOPHIL 0.2 % (0-2.0); MCH 34.1 pg (25.7-33.7); MEAN CELL VOLUME 100.2 fl (80-96); MEAN PLT VOLUME 8.8 fl (7.5-11.1); NEUTROPHILS 88.8 % (42.8-82.8); PLATELET COUNT 178 K/MM3 (134-434); RDW 12.5 % (11.9-15.9); WHITE BLOOD COUNT 8.2 K/mm3 (4.0-10.0)
[2016-11-20 08:07] LABS: ANION GAP 9 (8-16); CALCIUM 8.4 mg/dL (8.5-10.1); CO2 26 mmol/L (21-32); CREATININE 0.8 mg/dL (0.7-1.3); GLUCOSE,RANDOM 177 mg/dL (74-106); MAGNESIUM 2.1 mg/dL (1.8-2.4); PHOSPHOROUS 2.8 mg/dL (2.5-4.9)
[2016-11-20 08:12] LABS: TROPONIN I 0.02 ng/ml (0.00-0.05)
[2016-11-20] MEDS ORDERED: DEXTROSE 5%-WATER - 50 ML IVPB ONE (08:53)
[2016-11-20] MEDS ORDERED: cefTRIAXone SODIUM 1 GM VIAL ONE (08:53)
[2016-11-20] MEDS: predniSONE 10 MG TABLET (UD) PO SCH (09:08)
[2016-11-20] MEDS: METOPROLOL SUCCINATE 25 MG TAB.SR.24H (FP) PO SCH (09:08)
[2016-11-20] MEDS: LACTOBACILLUS ACIDOPHILUS 1 EACH TAB (FP) PO SCH (09:08)
[2016-11-20] MEDS: LISINOPRIL 5 MG TABLET (FP) PO SCH (09:08)
[2016-11-20] MEDS: APIXABAN 5 MG TABLET PO SCH ×2 (09:09→21:35)
[2016-11-20] MEDS: NAPH,MB-DB/K PH,MBDB POWDER PACKET PO SCH ×2 (09:09→21:35)
[2016-11-20] MEDS: CEFTRIAXONE 1 GM in DEXTROSE 5%-WATER - 50 ML IVPB SCH (09:09)
--- NOTE | 2016-11-20 10:25 | PN ---
Progress Note (short form) - Note Progress Note: S: feels well today. no cp, palps, sob dizzy Current Medications Generic Name Dose Route Start Last Admin Trade Name Freq PRN Reason Stop Dose Admin Acetaminophen 650 mg 11/17/16 16:24 11/20/16 05:49 Tylenol - PO 650 mg Q4H PRN Administration FEVER OR PAIN Apixaban 5 mg 11/18/16 22:00 11/20/16 09:09 Eliquis - PO 5 mg BID [facility] Administration Ceftriaxone Sodium 1 gm/ 50 mls @ 100 mls/hr 11/18/16 10:00 11/20/16 09:09 Dextrose IVPB 100 mls/hr DAILY [facility] Administration Lactobacillus Acidophilus 1 tab 11/18/16 10:00 11/20/16 09:08 Bacid - PO 1 tab DAILY [facility] Administration Levothyroxine Sodium 88 mcg 11/18/16 07:00 11/20/16 06:10 Synthroid - PO 88 mcg DAILY@0700 [facility] Administration Lisinopril 5 mg 11/18/16 10:00 11/20/16 09:08 Prinivil PO 5 mg DAILY [facility] Administration Metoprolol Succinate 25 mg 11/18/16 10:00 11/20/16 09:08 Toprol Xl - PO 25 mg DAILY [facility] Administration Ondansetron HCl 4 mg 11/17/16 16:24 Zofran Injection IVPB Q6H PRN NAUSEA Potassium Phos/Sodium Phos 1 packet 11/19/16 10:30 11/20/16 09:09 Phos-Nak Packet - PO 1 packet BID [facility] Administration Prednisone 30 mg 11/19/16 16:45 11/20/16 09:08 Deltasone - PO 30 mg DAILY [facility] Administration Vital Signs Period Temp Pulse Resp BP Sys/Yañez Pulse Ox Last 24 Hr 97.0 F-98.0 F 66-78 20-20 120-157/81-88 97 nad,calm no jvd ctab. nl effort irregular nl s1, s2 2/6 sys murmur at apex. + bs soft nt nd ext without e/c/c aaox3 no jaundice, diaphoresis. WBC 8.2 K/mm3 (4.0-10.0) D 11/20/16 06:30 RBC 3.69 M/mm3 (4.00-5.60) L 11/20/16 06:30 Hgb 12.6 GM/dL (11.7-16.9) 11/20/16 06:30 Hct 37.0 % (35.4-49) 11/20/16 06:30 MCV 100.2 fl (80-96) H 11/20/16 06:30 MCH 34.1 pg (25.7-33.7) H 11/20/16 06:30 MCHC 34.0 g/dl (32.0-35.9) 11/20/16 06:30 RDW 12.5 % (11.9-15.9) 11/20/16 06:30 Plt Count 178 K/MM3 (134-434) D 11/20/16 06:30 MPV 8.8 fl (7.5-11.1) 11/20/16 06:30 Neutrophils % 88.8 % (42.8-82.8) H D 11/20/16 06:30 Lymphocytes % 7.1 % (8-40) L D 11/20/16 06:30 Monocytes % 3.9 % (3.8-10.2) 11/20/16 06:30 Eosinophils % 0.0 % (0-4.5) D 11/20/16 06:30 Basophils % 0.2 % (0-2.0) 11/20/16 06:30 Sodium 138 mmol/L (136-145) 11/20/16 06:30 Potassium 4.5 mmol/L (3.5-5.1) 11/20/16 06:30 Chloride 103 mmol/L (98-107) 11/20/16 06:30 Carbon Dioxide 26 mmol/L (21-32) 11/20/16 06:30 Anion Gap 9 (8-16) 11/20/16 06:30 BUN 15 mg/dL (7-18) 11/20/16 06:30 Creatinine 0.8 mg/dL (0.7-1.3) 11/20/16 06:30 Creat Clearance w eGFR > 60 (>60) 11/18/16 07:00 Random Glucose 177 mg/dL (74-106) H D 11/20/16 06:30 Uric Acid 7.5 mg/dL (2.6-7.2) H 11/19/16 05:49 Calcium 8.4 mg/dL (8.5-10.1) L 11/20/16 06:30 Phosphorus 2.8 mg/dL (2.5-4.9) D 11/20/16 06:30 Magnesium 2.1 mg/dL (1.8-2.4) 11/20/16 06:30 Total Bilirubin 1.1 mg/dL (0.2-1.0) H D 11/19/16 05:49 Direct Bilirubin 0.3 mg/dL (0.0-0.2) H 11/19/16 05:49 AST 36 U/L (15-37) D 11/19/16 05:49 ALT 21 U/L (12-78) 11/19/16 05:49 Alkaline Phosphatase 62 U/L (45-117) 11/19/16 05:49 Creatine Kinase 352 IU/L (39-308) H 11/20/16 06:30 Creatine Kinase Index 0.8 % (0.0-5.0) 11/20/16 06:30 CK-MB (CK-2) 2.863 ng/mL (0.5-3.6) 11/20/16 06:30 Troponin I 0.02 ng/ml (0.00-0.05) D 11/20/16 06:30 Total Protein 5.7 g/dl (6.4-8.2) L 11/19/16 05:49 Albumin 2.7 g/dl (3.4-5.0) L 11/19/16 05:49 TSH 3.46 uIU/ml (0.358-3.74) 11/19/16 05:49 ekg: afib with pvc's. incomplete lbbb. non-specific t wave ab. tele: rate controlled afib cxr: left lower lung zone obscured. Echo 10/2015: Mild global HK (more prominent HK at basal and mid milner) EF 45-50% . Mild RV dil with mildly depressed sys function. Severe ANNELIESE. Mild , Mild AR. Borderline prolapse of anterior leaflet with moderate post directed MR. Moderate TR. Severe pHTN. Dilated IVC. (thought to be volume up at the time) echo 11/2016: tds, mod-sev dec lvef, global hk, nl rv, mod anneliese, mild-mod mr, mod tr, mild phtn, mild-mod ar, mild as, mild ao root dil cath 03/2015 [facility]: LVEDP 9. EF 40%. 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 presyncope - negative orthostatic vitals - had been on aldactone as diuretic for le edema. LE edema here significantly improved. ? volume depletion in setting of infection and etoh. No other cardiac etiology apparent. - PT elevated cardiac enzymes - intermediate trop elevation with flat trend in setting of rhabdo - ck 900's after being down on floor overnight (unable to get up from fall). - no need for further ischemic work up at this time. non-obstructive cad, - not on ASA b/c has been on AC. - has been off statin due to LDL suppression. would hold for now in setting of elevated ck. 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 afib with h/o cva (on eliquis) - eliquis initially held in setting of fall. Had pt eval --> high fall risk, inpatient rehab recommended. Discussed with nursing and patient reliable in regards to calling for help when he needs to ambulate. Given that he will be in monitored setting here and then in rehab have resumed eliquis. - con't rate control with metoprolol. mod MR -stable htn, - patient bp typically runs low. currently good bp's on current regimen, continue. etoh - cessation counseling. cardiac wade remains stable
--- NOTE | 2016-11-20 11:11 | PN ---
Progress Note, [employer] - Note Progress Note: Case reviewed with PMD, including h/o "throat cancer" with RT. Pt reported to be tolerating PO diet. Selected Entries 11/19/16 11/19/16 11/19/16 01:32 06:00 09:00 Breakfast 100% Lunch Supper Temperature 97.9 F 98.1 F 11/19/16 11/19/16 11/19/16 10:00 12:51 14:00 Breakfast Lunch 100% Supper Temperature 97.7 F 98.0 F 11/19/16 11/19/16 11/20/16 18:00 22:00 02:00 Breakfast Lunch Supper 100% Temperature 97.9 F 97.3 F L 11/20/16 11/20/16 11/20/16 06:00 09:16 10:00 Breakfast 100% Lunch Supper Temperature 97.0 F L 98.4 F Pt agreed with PMD for MBS today.
--- NOTE | 2016-11-20 11:20 | PN ---
Progress Note, Physician Chief Complaint: Mr Gutierrez is without complaint. No cp, sob, n/v. Says he is feeling. - Current Medication List Current Medications: Active Medications Acetaminophen (Tylenol -) 650 mg PO Q4H PRN PRN Reason: FEVER OR PAIN Last Admin: 11/20/16 05:49 Dose: 650 mg Apixaban (Eliquis -) 5 mg PO BID [facility] Last Admin: 11/20/16 09:09 Dose: 5 mg Ceftriaxone Sodium 1 gm/ (Dextrose) 50 mls @ 100 mls/hr IVPB DAILY [facility] Last Admin: 11/20/16 09:09 Dose: 100 mls/hr Lactobacillus Acidophilus (Bacid -) 1 tab PO DAILY [facility] Last Admin: 11/20/16 09:08 Dose: 1 tab Levothyroxine Sodium (Synthroid -) 88 mcg PO DAILY@0700 [facility] Last Admin: 11/20/16 06:10 Dose: 88 mcg Lisinopril (Prinivil) 5 mg PO DAILY [facility] Last Admin: 11/20/16 09:08 Dose: 5 mg Metoprolol Succinate (Toprol Xl -) 25 mg PO DAILY [facility] Last Admin: 11/20/16 09:08 Dose: 25 mg Ondansetron HCl (Zofran Injection) 4 mg IVPB Q6H PRN PRN Reason: NAUSEA Potassium Phos/Sodium Phos (Phos-Nak Packet -) 1 packet PO BID [facility] Last Admin: 11/20/16 09:09 Dose: 1 packet Prednisone (Deltasone -) 30 mg PO DAILY [facility] Last Admin: 11/20/16 09:08 Dose: 30 mg - Objective Vital Signs: Vital Signs Temperature 36.9 C 11/20/16 10:00 Pulse Rate 75 11/20/16 10:00 Respiratory Rate 20 11/20/16 10:00 Blood Pressure 146/75 11/20/16 10:00 O2 Sat by Pulse Oximetry (%) 94 L 11/20/16 09:00 Constitutional: Yes: Well Nourished, No Distress, Calm Cardiovascular: Yes: Regular Rate and Rhythm. No: Gallop, Murmur, Rub Respiratory: Yes: Regular, CTA Bilaterally. No: Rales, Rhonchi, Wheezes Gastrointestinal: Yes: Normal Bowel Sounds, Soft. No: Distention, Tenderness Extremities: Yes: WNL Edema: No Labs: CBC, BMP 11/20/16 06:30 11/20/16 06:30 Problem List - Problems (1) UTI (urinary tract infection) Code(s): N39.0 - URINARY TRACT INFECTION, SITE NOT SPECIFIED Qualifiers: Urinary tract infection type: acute cystitis Hematuria presence: with hematuria Qualified Code(s): N30.01 - Acute cystitis with hematuria (2) Syncope and collapse Code(s): R55 - SYNCOPE AND COLLAPSE (3) Rhabdomyolysis Code(s): M62.82 - RHABDOMYOLYSIS Qualifiers: Rhabdomyolysis type: non-traumatic Qualified Code(s): M62.82 - Rhabdomyolysis (4) Elevation of cardiac enzymes Code(s): R74.8 - ABNORMAL LEVELS OF OTHER SERUM ENZYMES (5) HTN (hypertension) Code(s): I10 - ESSENTIAL (PRIMARY) HYPERTENSION (6) Hypothyroid Code(s): E03.9 - HYPOTHYROIDISM, UNSPECIFIED (7) HLD (hyperlipidemia) Code(s): E78.5 - HYPERLIPIDEMIA, UNSPECIFIED (8) Atrial fibrillation Code(s): I48.91 - UNSPECIFIED ATRIAL FIBRILLATION Qualifiers: Atrial fibrillation type: chronic Qualified Code(s): I48.2 - Chronic atrial fibrillation Assessment/Plan (1) UTI (urinary tract infection) Assessment/Plan: -urine culture growing MSSA BUT vancomycin resistant -on rocephin, but may need stronger antibiotic -ID consult -blood cultures remain NGTD Code(s): N39.0 - URINARY TRACT INFECTION, SITE NOT SPECIFIED Qualifiers: Urinary tract infection type: acute cystitis Hematuria presence: with hematuria Qualified Code(s): N30.01 - Acute cystitis with hematuria (2) Syncope and collapse Assessment/Plan: -resolved -appreciate cardiology assistance -may not need snf Code(s): R55 - SYNCOPE AND COLLAPSE (3) Rhabdomyolysis Assessment/Plan: -resolved Code(s): M62.82 - RHABDOMYOLYSIS Qualifiers: Rhabdomyolysis type: non-traumatic Qualified Code(s): M62.82 - Rhabdomyolysis (4) Elevation of cardiac enzymes Assessment/Plan: -appreciate cardiology assistance -continue medical management Code(s): R74.8 - ABNORMAL LEVELS OF OTHER SERUM ENZYMES (5) HTN (hypertension) Assessment/Plan: -continue lisinopril and toprol xl -holding aldactone currently -per cardiology can restart on discharge Code(s): I10 - ESSENTIAL (PRIMARY) HYPERTENSION (6) Hypothyroid Assessment/Plan: -continue synthroid Code(s): E03.9 - HYPOTHYROIDISM, UNSPECIFIED (7) HLD (hyperlipidemia) Assessment/Plan: -continue statin Code(s): E78.5 - HYPERLIPIDEMIA, UNSPECIFIED (8) Atrial fibrillation Assessment/Plan: -rate controlled -eliquis restarted Code(s): I48.91 - UNSPECIFIED ATRIAL FIBRILLATION Qualifiers: Atrial fibrillation type: chronic Qualified Code(s): I48.2 - Chronic atrial fibrillation (9) Cough -patient has history of throat cancer s/p radiation therapy -case d/w speech therapy -plan for barium swallow today Dispo -now with resistant urine infection -ID to see
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
[2016-11-20] MEDS: LINEZOLID 600 MG TABLET (RESTRICTED TO ID) PO SCH (21:35)
[2016-11-21] MEDS: ACETAMINOPHEN 325 MG TABLET (FP) PO PRN ×2 (06:08→19:01)
[2016-11-21] MEDS: LEVOTHYROXINE NA 88 MCG TABLET (FP) PO SCH (06:08)
[2016-11-21 06:41] LABS: BASOPHIL 0.2 % (0-2.0); EOSINOPHIL 1.2 % (0-4.5); MCH 34.7 pg (25.7-33.7); MCHC 34.6 g/dl (32.0-35.9); MEAN CELL VOLUME 100.6 fl (80-96); NEUTROPHILS 75.6 % (42.8-82.8); PLATELET COUNT 188 K/MM3 (134-434); RDW 12.6 % (11.9-15.9); WHITE BLOOD COUNT 7.4 K/mm3 (4.0-10.0)
[2016-11-21 06:58] LABS: ANION GAP 4 (8-16); CALCIUM 8.7 mg/dL (8.5-10.1); CO2 29 mmol/L (21-32); CREATININE 0.9 mg/dL (0.7-1.3); GLUCOSE,RANDOM 143 mg/dL (74-106); MAGNESIUM 2.1 mg/dL (1.8-2.4); PHOSPHOROUS 2.6 mg/dL (2.5-4.9)
--- NOTE | 2016-11-21 10:13 | PN ---
Progress Note (short form) - Note Progress Note: S: feels well today. no cp, palps, sob dizzy Current Medications Generic Name Dose Route Start Last Admin Trade Name Freq PRN Reason Stop Dose Admin Acetaminophen 650 mg 11/17/16 16:24 11/21/16 06:08 Tylenol - PO 650 mg Q4H PRN Administration FEVER OR PAIN Apixaban 5 mg 11/18/16 22:00 11/20/16 21:35 Eliquis - PO 5 mg BID NELSY Administration Lactobacillus Acidophilus 1 tab 11/18/16 10:00 11/20/16 09:08 Bacid - PO 1 tab DAILY NELSY Administration Levothyroxine Sodium 88 mcg 11/18/16 07:00 11/21/16 06:08 Synthroid - PO 88 mcg DAILY@0700 NELSY Administration Linezolid 600 mg 11/20/16 22:00 11/20/16 21:35 Zyvox (Restricted To Id) - PO 600 mg BID NELSY Administration Lisinopril 5 mg 11/18/16 10:00 11/20/16 09:08 Prinivil PO 5 mg DAILY NELSY Administration Metoprolol Succinate 25 mg 11/18/16 10:00 11/20/16 09:08 Toprol Xl - PO 25 mg DAILY NELSY Administration Ondansetron HCl 4 mg 11/17/16 16:24 Zofran Injection IVPB Q6H PRN NAUSEA Potassium Phos/Sodium Phos 1 packet 11/19/16 10:30 11/20/16 21:35 Phos-Nak Packet - PO 1 packet BID NELSY Administration Prednisone 30 mg 11/19/16 16:45 11/20/16 09:08 Deltasone - PO 30 mg DAILY NELSY Administration Vital Signs Period Temp Pulse Resp BP Sys/Yañez Pulse Ox Last 24 Hr 97.8 F-99.1 F 65-87 20-20 128-151/68-92 95 nad,calm no jvd ctab. nl effort irregular nl s1, s2 2/6 sys murmur at apex. + bs soft nt nd ext without e/c/c aaox3 no jaundice, diaphoresis. CBC, BMP 11/21/16 06:00 11/21/16 06:00 ekg: afib with pvc's. incomplete lbbb. non-specific t wave ab. tele: rate controlled afib cxr: left lower lung zone obscured. Echo 10/2015: Mild global HK (more prominent HK at basal and mid milner) EF 45-50% . Mild RV dil with mildly depressed sys function. Severe ANNELIESE. Mild , Mild AR. Borderline prolapse of anterior leaflet with moderate post directed MR. Moderate TR. Severe pHTN. Dilated IVC. (thought to be volume up at the time) echo 11/2016: tds, mod-sev dec lvef, global hk, nl rv, mod anneliese, mild-mod mr, mod tr, mild phtn, mild-mod ar, mild as, mild ao root dil cath 03/2015 [facility]: LVEDP 9. EF 40%. 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 presyncope - negative orthostatic vitals - had been on aldactone as diuretic for le edema. LE edema here significantly improved. ? volume depletion in setting of infection and etoh. No other cardiac etiology apparent. - PT elevated cardiac enzymes - intermediate trop elevation with flat trend in setting of rhabdo - ck 900's after being down on floor overnight (unable to get up from fall). - no need for further ischemic work up at this time. non-obstructive cad, - not on ASA b/c has been on AC. - has been off statin due to LDL suppression. would hold for now in setting of elevated ck. 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 afib with h/o cva (on eliquis) - eliquis initially held in setting of fall. Had pt eval --> high fall risk, inpatient rehab recommended. Discussed with nursing and patient reliable in regards to calling for help when he needs to ambulate. Given that he will be in monitored setting here and then in rehab have resumed eliquis. - con't rate control with metoprolol. mod MR -stable htn, - patient bp typically runs low. currently good bp's on current regimen, continue. etoh - cessation counseling. uti: -abx per ID cardiac wade remains stable, can dc tele
[2016-11-21] MEDS: predniSONE 10 MG TABLET (UD) PO SCH (10:24)
[2016-11-21] MEDS: LACTOBACILLUS ACIDOPHILUS 1 EACH TAB (FP) PO SCH (10:25)
[2016-11-21] MEDS: METOPROLOL SUCCINATE 25 MG TAB.SR.24H (FP) PO SCH (10:25)
[2016-11-21] MEDS: LISINOPRIL 5 MG TABLET (FP) PO SCH (10:25)
[2016-11-21] MEDS: APIXABAN 5 MG TABLET PO SCH ×2 (10:26→22:22)
[2016-11-21] MEDS: LINEZOLID 600 MG TABLET (RESTRICTED TO ID) PO SCH ×2 (10:26→22:23)
[2016-11-21] MEDS: NAPH,MB-DB/K PH,MBDB POWDER PACKET PO SCH ×2 (10:26→22:27)
--- NOTE | 2016-11-21 11:37 | PN ---
Progress Note, Physician Chief Complaint: Mr Gutierrez is without complaint. No cp, sob, n/v. Says he is ready to go home. - Current Medication List Current Medications: Active Medications Acetaminophen (Tylenol -) 650 mg PO Q4H PRN PRN Reason: FEVER OR PAIN Last Admin: 11/21/16 06:08 Dose: 650 mg Apixaban (Eliquis -) 5 mg PO BID [facility] Last Admin: 11/21/16 10:26 Dose: 5 mg Lactobacillus Acidophilus (Bacid -) 1 tab PO DAILY [facility] Last Admin: 11/21/16 10:25 Dose: 1 tab Levothyroxine Sodium (Synthroid -) 88 mcg PO DAILY@0700 [facility] Last Admin: 11/21/16 06:08 Dose: 88 mcg Linezolid (Zyvox (Restricted To Id) -) 600 mg PO BID [facility] Last Admin: 11/21/16 10:26 Dose: 600 mg Lisinopril (Prinivil) 5 mg PO DAILY [facility] Last Admin: 11/21/16 10:25 Dose: 5 mg Metoprolol Succinate (Toprol Xl -) 25 mg PO DAILY [facility] Last Admin: 11/21/16 10:25 Dose: 25 mg Ondansetron HCl (Zofran Injection) 4 mg IVPB Q6H PRN PRN Reason: NAUSEA Potassium Phos/Sodium Phos (Phos-Nak Packet -) 1 packet PO BID [facility] Last Admin: 11/21/16 10:26 Dose: 1 packet Prednisone (Deltasone -) 30 mg PO DAILY [facility] Last Admin: 11/21/16 10:24 Dose: 30 mg - Objective Vital Signs: Vital Signs Temperature 36.8 C 11/21/16 06:00 Pulse Rate 72 11/21/16 06:00 Respiratory Rate 20 11/21/16 06:00 Blood Pressure 151/81 11/21/16 06:00 O2 Sat by Pulse Oximetry (%) 95 11/20/16 21:00 Constitutional: Yes: Well Nourished, No Distress, Calm Cardiovascular: Yes: Regular Rate and Rhythm. No: Gallop, Murmur, Rub Respiratory: Yes: Regular, CTA Bilaterally. No: Rales, Rhonchi, Wheezes Gastrointestinal: Yes: Normal Bowel Sounds, Soft. No: Distention, Tenderness Extremities: Yes: WNL Edema: No Labs: CBC, BMP 11/21/16 06:00 11/21/16 06:00 Problem List - Problems (1) UTI (urinary tract infection) Code(s): N39.0 - URINARY TRACT INFECTION, SITE NOT SPECIFIED Qualifiers: Urinary tract infection type: acute cystitis Hematuria presence: with hematuria Qualified Code(s): N30.01 - Acute cystitis with hematuria (2) Syncope and collapse Code(s): R55 - SYNCOPE AND COLLAPSE (3) Rhabdomyolysis Code(s): M62.82 - RHABDOMYOLYSIS Qualifiers: Rhabdomyolysis type: non-traumatic Qualified Code(s): M62.82 - Rhabdomyolysis (4) Elevation of cardiac enzymes Code(s): R74.8 - ABNORMAL LEVELS OF OTHER SERUM ENZYMES (5) HTN (hypertension) Code(s): I10 - ESSENTIAL (PRIMARY) HYPERTENSION (6) Hypothyroid Code(s): E03.9 - HYPOTHYROIDISM, UNSPECIFIED (7) HLD (hyperlipidemia) Code(s): E78.5 - HYPERLIPIDEMIA, UNSPECIFIED (8) Atrial fibrillation Code(s): I48.91 - UNSPECIFIED ATRIAL FIBRILLATION Qualifiers: Atrial fibrillation type: chronic Qualified Code(s): I48.2 - Chronic atrial fibrillation Assessment/Plan (1) UTI (urinary tract infection) Assessment/Plan: -urine culture growing MSSA BUT vancomycin resistant -ID consulted and placed on zyvox -will need zyvox 600mg bid x14 days Code(s): N39.0 - URINARY TRACT INFECTION, SITE NOT SPECIFIED Qualifiers: Urinary tract infection type: acute cystitis Hematuria presence: with hematuria Qualified Code(s): N30.01 - Acute cystitis with hematuria (2) Syncope and collapse Assessment/Plan: -resolved -appreciate cardiology assistance -safe for discharge home Code(s): R55 - SYNCOPE AND COLLAPSE (3) Rhabdomyolysis Assessment/Plan: -resolved Code(s): M62.82 - RHABDOMYOLYSIS Qualifiers: Rhabdomyolysis type: non-traumatic Qualified Code(s): M62.82 - Rhabdomyolysis (4) Elevation of cardiac enzymes Assessment/Plan: -appreciate cardiology assistance -continue medical management Code(s): R74.8 - ABNORMAL LEVELS OF OTHER SERUM ENZYMES (5) HTN (hypertension) Assessment/Plan: -continue lisinopril and toprol xl -holding aldactone currently -per cardiology can restart on discharge Code(s): I10 - ESSENTIAL (PRIMARY) HYPERTENSION (6) Hypothyroid Assessment/Plan: -continue synthroid Code(s): E03.9 - HYPOTHYROIDISM, UNSPECIFIED (7) HLD (hyperlipidemia) Assessment/Plan: -continue statin Code(s): E78.5 - HYPERLIPIDEMIA, UNSPECIFIED (8) Atrial fibrillation Assessment/Plan: -rate controlled -eliquis restarted Code(s): I48.91 - UNSPECIFIED ATRIAL FIBRILLATION Qualifiers: Atrial fibrillation type: chronic Qualified Code(s): I48.2 - Chronic atrial fibrillation (9) Cough -barium swallow negative (10) Gout -patient with swelling and elevated uric acid -on prednisone 30mg daily -will need 7-10 day taper as an outpatient -to follow up with Dr Adams after finishing course of prednisone to evaluate if needs allopurinol or uloric Dispo -medically stable for discharge -however needs zyvox -insurance company called and expedited prior auth for zyvox requested -expedited prior auth can take up to 24 hours, awaiting decision
--- NOTE | 2016-11-21 16:51 | PN ---
Progress Note, Physician History of Present Illness: stable doing well no issues - Current Medication List Current Medications: Active Medications Acetaminophen (Tylenol -) 650 mg PO Q4H PRN PRN Reason: FEVER OR PAIN Last Admin: 11/21/16 06:08 Dose: 650 mg Apixaban (Eliquis -) 5 mg PO BID [facility] Last Admin: 11/21/16 10:26 Dose: 5 mg Lactobacillus Acidophilus (Bacid -) 1 tab PO DAILY [facility] Last Admin: 11/21/16 10:25 Dose: 1 tab Levothyroxine Sodium (Synthroid -) 88 mcg PO DAILY@0700 [facility] Last Admin: 11/21/16 06:08 Dose: 88 mcg Linezolid (Zyvox (Restricted To Id) -) 600 mg PO BID [facility] Last Admin: 11/21/16 10:26 Dose: 600 mg Lisinopril (Prinivil) 5 mg PO DAILY [facility] Last Admin: 11/21/16 10:25 Dose: 5 mg Metoprolol Succinate (Toprol Xl -) 25 mg PO DAILY [facility] Last Admin: 11/21/16 10:25 Dose: 25 mg Ondansetron HCl (Zofran Injection) 4 mg IVPB Q6H PRN PRN Reason: NAUSEA Potassium Phos/Sodium Phos (Phos-Nak Packet -) 1 packet PO BID [facility] Last Admin: 11/21/16 10:26 Dose: 1 packet Prednisone (Deltasone -) 30 mg PO DAILY [facility] Last Admin: 11/21/16 10:24 Dose: 30 mg - Objective Vital Signs: Vital Signs Temperature 97.8 F 11/21/16 13:44 Pulse Rate 76 11/21/16 13:44 Respiratory Rate 18 11/21/16 13:44 Blood Pressure 148/99 11/21/16 13:44 O2 Sat by Pulse Oximetry (%) 96 11/21/16 09:00 Constitutional: Yes: No Distress, Calm Cardiovascular: Yes: Regular Rate and Rhythm Respiratory: Yes: Regular, CTA Bilaterally Gastrointestinal: Yes: Normal Bowel Sounds, Soft Musculoskeletal: Yes: WNL Extremities: Yes: WNL Neurological: Yes: Alert, Oriented Psychiatric: Yes: Alert, Oriented Labs: CBC, BMP 11/21/16 06:00 11/21/16 06:00 Assessment/Plan Problem List - Problems (1) UTI (urinary tract infection) Code(s): N39.0 - URINARY TRACT INFECTION, SITE NOT SPECIFIED Qualifiers: Urinary tract infection type: acute cystitis Hematuria presence: with hematuria Qualified Code(s): N30.01 - Acute cystitis with hematuria (2) Syncope and collapse Code(s): R55 - SYNCOPE AND COLLAPSE (3) Rhabdomyolysis Code(s): M62.82 - RHABDOMYOLYSIS Qualifiers: Rhabdomyolysis type: non-traumatic Qualified Code(s): M62.82 - Rhabdomyolysis (4) Elevation of cardiac enzymes Code(s): R74.8 - ABNORMAL LEVELS OF OTHER SERUM ENZYMES (5) HTN (hypertension) Code(s): I10 - ESSENTIAL (PRIMARY) HYPERTENSION (6) Hypothyroid Code(s): E03.9 - HYPOTHYROIDISM, UNSPECIFIED (7) HLD (hyperlipidemia) Code(s): E78.5 - HYPERLIPIDEMIA, UNSPECIFIED (8) Atrial fibrillation Code(s): I48.91 - UNSPECIFIED ATRIAL FIBRILLATION Qualifiers: Atrial fibrillation type: chronic Qualified Code(s): I48.2 - Chronic atrial fibrillation plan continue current abx close monitoring if spikes fever blood cx
[2016-11-22] MEDS: LEVOTHYROXINE NA 88 MCG TABLET (FP) PO SCH (06:51)
--- NOTE | 2016-11-22 08:04 | PN ---
Progress Note, Physician Chief Complaint: afib History of Present Illness: denies cp, sob, orthopnea, leg swelling, palpit - Current Medication List Current Medications: Active Medications Acetaminophen (Tylenol -) 650 mg PO Q4H PRN PRN Reason: FEVER OR PAIN Last Admin: 11/21/16 19:01 Dose: 650 mg Apixaban (Eliquis -) 5 mg PO BID [facility] Last Admin: 11/21/16 22:22 Dose: 5 mg Lactobacillus Acidophilus (Bacid -) 1 tab PO DAILY [facility] Last Admin: 11/21/16 10:25 Dose: 1 tab Levothyroxine Sodium (Synthroid -) 88 mcg PO DAILY@0700 [facility] Last Admin: 11/22/16 06:51 Dose: 88 mcg Linezolid (Zyvox (Restricted To Id) -) 600 mg PO BID [facility] Last Admin: 11/21/16 22:23 Dose: 600 mg Lisinopril (Prinivil) 5 mg PO DAILY [facility] Last Admin: 11/21/16 10:25 Dose: 5 mg Metoprolol Succinate (Toprol Xl -) 25 mg PO DAILY [facility] Last Admin: 11/21/16 10:25 Dose: 25 mg Ondansetron HCl (Zofran Injection) 4 mg IVPB Q6H PRN PRN Reason: NAUSEA Potassium Phos/Sodium Phos (Phos-Nak Packet -) 1 packet PO BID [facility] Last Admin: 11/21/16 22:27 Dose: 1 packet Prednisone (Deltasone -) 30 mg PO DAILY [facility] Last Admin: 11/21/16 10:24 Dose: 30 mg - Objective Vital Signs: Vital Signs Temperature 98.6 F 11/22/16 06:00 Pulse Rate 73 11/22/16 06:00 Respiratory Rate 18 11/22/16 06:00 Blood Pressure 153/82 11/22/16 06:00 O2 Sat by Pulse Oximetry (%) 96 11/21/16 22:00 Constitutional: Yes: Well Nourished, No Distress, Calm Cardiovascular: Yes: Pulse Irregular, S1, S2. No: Gallop, Murmur Respiratory: Yes: Regular, CTA Bilaterally. No: Accessory Muscle Use, Rales, Wheezes Extremities: No: Cold Edema: Yes (1+ ankles) Neurological: Yes: Alert, Oriented Psychiatric: No: Agitated Labs: CBC, BMP 11/21/16 06:00 11/21/16 06:00 - ....Imaging EKG: Other (tele: AF, good HRs) Assessment/Plan ekg: afib with pvc's. incomplete lbbb. non-specific t wave ab. Echo 10/2015: Mild global HK (more prominent HK at basal and mid milner) EF 45-50% . Mild RV dil with mildly depressed sys function. Severe ANNELIESE. Mild , Mild AR. Borderline prolapse of anterior leaflet with moderate post directed MR. Moderate TR. Severe pHTN. Dilated IVC. (thought to be volume up at the time) Echo 11/2016: tds, mod-sev dec lvef, global hk, nl rv, mod anneliese, mild-mod mr, mod tr, mild phtn, mild-mod ar, mild as, mild ao root dil Cath 03/2015 [facility]: LVEDP 9. EF 40%. 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 presyncope - negative orthostatic vitals - had been on aldactone as diuretic for le edema. LE edema here significantly improved. ? volume depletion in setting of infection and etoh. No other cardiac etiology apparent. - PT and rehab as doing elevated cardiac enzymes - intermediate trop elevation with flat trend in setting of rhabdo - ck 900's after being down on floor overnight (unable to get up from fall), and no ischemic ecg changes--likely due to hypotension or other supply-demand mismatch (Type II ID) or chronic LV dysfunction/high filling pressures - cath 2015 only mild (non-obstructive) CAD - no evidence of plaque rupture ACS here - no need for further ischemic work up at this time. non-obstructive cad, - not on ASA b/c has been on AC. - has been off statin due to LDL suppression. would hold for now in setting of elevated ck. 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 afib with h/o cva (on eliquis) - eliquis initially held in setting of fall. Had pt eval --> high fall risk, inpatient rehab recommended. Discussed with nursing and patient reliable in regards to calling for help when he needs to ambulate. Given that he will be in monitored setting here and then in rehab have resumed eliquis. - pt states to me that he has never fallen before, always uses walker at home. says dtr is a nurse and checks in on him often. -advised him he needs close f/u with dr bruner in office to monitor his balance and falls risk once back home--can consider LA appendage closure ( Watchman) at that time if remains at risk, in disc'n btw dr bruner and pt/dtr - con't rate control with metoprolol mod MR -stable htn, - patient bp typically runs low. currently good bp's on current regimen, continue. etoh - cessation counselled here, including risks of serious head injury or bleeding from AC uti: -abx per ID
[2016-11-22] MEDS ORDERED: PT OWN MED DRAWER 7, Y5N ONE ×2 (09:34→21:01)
[2016-11-22] MEDS: LINEZOLID 600 MG TABLET (RESTRICTED TO ID) PO SCH ×2 (09:42→21:08)
[2016-11-22] MEDS: APIXABAN 5 MG TABLET PO SCH ×2 (09:42→21:07)
[2016-11-22] MEDS: LACTOBACILLUS ACIDOPHILUS 1 EACH TAB (FP) PO SCH (09:42)
[2016-11-22] MEDS: LISINOPRIL 5 MG TABLET (FP) PO SCH (09:42)
[2016-11-22] MEDS: METOPROLOL SUCCINATE 25 MG TAB.SR.24H (FP) PO SCH (09:42)
[2016-11-22] MEDS: NAPH,MB-DB/K PH,MBDB POWDER PACKET PO SCH ×2 (09:42→21:07)
[2016-11-22] MEDS: predniSONE 10 MG TABLET (UD) PO SCH (09:42)
--- NOTE | 2016-11-22 11:19 | DS ---
Physical Examination Vital Signs: Vital Signs Temperature 97.7 F 11/22/16 10:00 Pulse Rate 70 11/22/16 10:00 Respiratory Rate 18 11/22/16 10:00 Blood Pressure 154/80 11/22/16 10:00 O2 Sat by Pulse Oximetry (%) 97 11/22/16 09:00 Labs: CBC, BMP 11/21/16 06:00 11/21/16 06:00 Discharge Summary Reason For Visit: UTI,CONFUSION,ELEVATION OF CARDIAC ENZYMES Current Active Problems Atrial fibrillation (Acute) Confused (Acute) Elevation of cardiac enzymes (Acute) HLD (hyperlipidemia) (Acute) HTN (hypertension) (Acute) Hypothyroid (Acute) Rhabdomyolysis (Acute) Syncope and collapse (Acute) UTI (urinary tract infection) (Acute) Hospital Course: Medical coverage for Dr. Teran - Home Medications Comprehensive Discharge Medication List: Ambulatory Orders Levothyroxine [Synthroid -] 88 mcg PO DAILY 10/29/12 Metoprolol Succinate [Toprol XL -] 25 mg PO DAILY 10/29/12 Simvastatin [Zocor -] 20 mg PO HS 10/29/12 Lisinopril [Prinivil] 5 mg PO DAILY #0 tablet 11/02/12 Furosemide [Lasix] 20 mg PO ASDIR 11/17/16 Acetaminophen [Tylenol .Regular Strength -] 650 mg PO Q4H PRN #0 tablet Apixaban [Eliquis -] 5 mg PO BID #60 tablet 11/22/16 Lactobacillus Acidophilus [Bacid -] 1 tab PO DAILY #30 tab 11/22/16 Linezolid [Zyvox (Restricted To Id) -] 600 mg PO BID #24 tablet 11/22/16 Prednisone [Deltasone -] 10 mg PO DAILY #10 tablet 11/22/16
--- NOTE | 2016-11-22 13:39 | PN ---
Progress Note, Physician History of Present Illness: Pt states he feels well, has no specific complaints Afebrile - Current Medication List Current Medications: Active Medications Acetaminophen (Tylenol -) 650 mg PO Q4H PRN PRN Reason: FEVER OR PAIN Last Admin: 11/21/16 19:01 Dose: 650 mg Apixaban (Eliquis -) 5 mg PO BID [facility] Last Admin: 11/22/16 09:42 Dose: 5 mg Lactobacillus Acidophilus (Bacid -) 1 tab PO DAILY [facility] Last Admin: 11/22/16 09:42 Dose: 1 tab Levothyroxine Sodium (Synthroid -) 88 mcg PO DAILY@0700 [facility] Last Admin: 11/22/16 06:51 Dose: 88 mcg Linezolid (Zyvox (Restricted To Id) -) 600 mg PO BID [facility] Last Admin: 11/22/16 09:42 Dose: 600 mg Lisinopril (Prinivil) 5 mg PO DAILY [facility] Last Admin: 11/22/16 09:42 Dose: 5 mg Metoprolol Succinate (Toprol Xl -) 25 mg PO DAILY [facility] Last Admin: 11/22/16 09:42 Dose: 25 mg Ondansetron HCl (Zofran Injection) 4 mg IVPB Q6H PRN PRN Reason: NAUSEA Potassium Phos/Sodium Phos (Phos-Nak Packet -) 1 packet PO BID [facility] Last Admin: 11/22/16 09:42 Dose: 1 packet Prednisone (Deltasone -) 30 mg PO DAILY [facility] Last Admin: 11/22/16 09:42 Dose: 30 mg - Objective Vital Signs: Vital Signs Temperature 97.7 F 11/22/16 10:00 Pulse Rate 70 11/22/16 10:00 Respiratory Rate 18 11/22/16 10:00 Blood Pressure 154/80 11/22/16 10:00 O2 Sat by Pulse Oximetry (%) 97 11/22/16 09:00 Constitutional: Yes: No Distress Eyes: Yes: WNL HENT: Yes: WNL Cardiovascular: Yes: Regular Rate and Rhythm Respiratory: Yes: CTA Bilaterally Gastrointestinal: Yes: Normal Bowel Sounds, Soft Genitourinary: Yes: WNL Integumentary: Yes: WNL Psychiatric: Yes: Alert, Oriented Labs: CBC, BMP 11/21/16 06:00 11/21/16 06:00 Problem List - Problems (1) Confused Code(s): R41.0 - DISORIENTATION, UNSPECIFIED (2) HTN (hypertension) Code(s): I10 - ESSENTIAL (PRIMARY) HYPERTENSION (3) Rhabdomyolysis Code(s): M62.82 - RHABDOMYOLYSIS Qualifiers: Rhabdomyolysis type: non-traumatic Qualified Code(s): M62.82 - Rhabdomyolysis (4) Syncope and collapse Code(s): R55 - SYNCOPE AND COLLAPSE (5) UTI (urinary tract infection) Code(s): N39.0 - URINARY TRACT INFECTION, SITE NOT SPECIFIED Qualifiers: Urinary tract infection type: acute cystitis Hematuria presence: with hematuria Qualified Code(s): N30.01 - Acute cystitis with hematuria Assessment/Plan VISA UTI pt doing well continue linezolid monitor vitals
--- NOTE | 2016-11-22 15:36 | PN ---
Progress Note (short form) - Note Progress Note: Medical coverage for Dr. Teran Subjective: The patient was seen and examined at the bedside, he states he would like to go home Current Medications Generic Name Dose Route Start Last Admin Trade Name Archana PRN Reason Stop Dose Admin Acetaminophen 650 mg 11/17/16 16:24 11/21/16 19:01 Tylenol - PO 650 mg Q4H PRN Administration FEVER OR PAIN Apixaban 5 mg 11/18/16 22:00 11/22/16 09:42 Eliquis - PO 5 mg BID [facility] Administration Lactobacillus Acidophilus 1 tab 11/18/16 10:00 11/22/16 09:42 Bacid - PO 1 tab DAILY [facility] Administration Levothyroxine Sodium 88 mcg 11/18/16 07:00 11/22/16 06:51 Synthroid - PO 88 mcg DAILY@0700 [facility] Administration Linezolid 600 mg 11/20/16 22:00 11/22/16 09:42 Zyvox (Restricted To Id) - PO 600 mg BID [facility] Administration Lisinopril 5 mg 11/18/16 10:00 11/22/16 09:42 Prinivil PO 5 mg DAILY [facility] Administration Metoprolol Succinate 25 mg 11/18/16 10:00 11/22/16 09:42 Toprol Xl - PO 25 mg DAILY [facility] Administration Ondansetron HCl 4 mg 11/17/16 16:24 Zofran Injection IVPB Q6H PRN NAUSEA Potassium Phos/Sodium Phos 1 packet 11/19/16 10:30 11/22/16 09:42 Phos-Nak Packet - PO 1 packet BID [facility] Administration Prednisone 30 mg 11/19/16 16:45 11/22/16 09:42 Deltasone - PO 30 mg DAILY [facility] Administration Objective: Vital Signs Period Temp Pulse Resp BP Sys/Yañez Pulse Ox Last 24 Hr 97.7 F-98.6 F 55-73 18-18 114-154/55-85 96-97 Physical Exam: General: NAD, A&Ox3 Lungs: CTA bilaterally Heart: RRR, S1S2 AbdL Soft, non-tender, non-distended. Normoactive bowel sounds Ext: Warm, well-perfused CBCD WBC 7.4 K/mm3 (4.0-10.0) 11/21/16 06:00 RBC 3.97 M/mm3 (4.00-5.60) L 11/21/16 06:00 Hgb 13.8 GM/dL (11.7-16.9) 11/21/16 06:00 Hct 39.9 % (35.4-49) 11/21/16 06:00 MCV 100.6 fl (80-96) H 11/21/16 06:00 MCHC 34.6 g/dl (32.0-35.9) 11/21/16 06:00 RDW 12.6 % (11.9-15.9) 11/21/16 06:00 Plt Count 188 K/MM3 (134-434) 11/21/16 06:00 MPV 9.0 fl (7.5-11.1) 11/21/16 06:00 CMP Sodium 137 mmol/L (136-145) 11/21/16 06:00 Potassium 4.2 mmol/L (3.5-5.1) 11/21/16 06:00 Chloride 104 mmol/L (98-107) 11/21/16 06:00 Carbon Dioxide 29 mmol/L (21-32) 11/21/16 06:00 Anion Gap 4 (8-16) L 11/21/16 06:00 BUN 19 mg/dL (7-18) H D 11/21/16 06:00 Creatinine 0.9 mg/dL (0.7-1.3) 11/21/16 06:00 Creat Clearance w eGFR > 60 (>60) 11/18/16 07:00 Random Glucose 143 mg/dL (74-106) H 11/21/16 06:00 Calcium 8.7 mg/dL (8.5-10.1) 11/21/16 06:00 Total Bilirubin 1.1 mg/dL (0.2-1.0) H D 11/19/16 05:49 AST 36 U/L (15-37) D 11/19/16 05:49 ALT 21 U/L (12-78) 11/19/16 05:49 Alkaline Phosphatase 62 U/L (45-117) 11/19/16 05:49 Total Protein 5.7 g/dl (6.4-8.2) L 11/19/16 05:49 Albumin 2.7 g/dl (3.4-5.0) L 11/19/16 05:49 CARDIAC ENZYMES Creatine Kinase 352 IU/L (39-308) H 11/20/16 06:30 Troponin I 0.02 ng/ml (0.00-0.05) D 11/20/16 06:30 Assessment: This is an 85 year old male with PMHx of HTN, hypothyroidism, hyperlipidemia, non-ischemic biventricular cardiomyopathy, severe PHTN, a.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 Discussed with case management CODE STATUS: FULL CODE Visit type - Emergency Visit Emergency Visit: Yes ED Registration Date: 11/17/16 Care time: The patient presented to the Emergency Department on the above date and was hospitalized for further evaluation of their emergent condition. - New Patient This patient is new to me today: Yes Date on this admission: 11/23/16 - Critical Care Critical Care patient: No
[2016-11-22] MEDS: ACETAMINOPHEN 325 MG TABLET (FP) PO PRN ×2 (16:46→21:08)
[2016-11-23] MEDS: LEVOTHYROXINE NA 88 MCG TABLET (FP) PO SCH (06:27)
--- NOTE | 2016-11-23 08:27 | PN ---
Progress Note (short form) - Note Progress Note: Medical coverage for Dr. Teran Subjective: The patient was seen and examined at the bedside, he was observed ambulating with his walker Current Medications Generic Name Dose Route Start Last Admin Trade Name Archana PRN Reason Stop Dose Admin Acetaminophen 650 mg 11/17/16 16:24 11/22/16 21:08 Tylenol - PO 650 mg Q4H PRN Administration FEVER OR PAIN Apixaban 5 mg 11/18/16 22:00 11/22/16 21:07 Eliquis - PO 5 mg BID [facility] Administration Lactobacillus Acidophilus 1 tab 11/18/16 10:00 11/22/16 09:42 Bacid - PO 1 tab DAILY [facility] Administration Levothyroxine Sodium 88 mcg 11/18/16 07:00 11/23/16 06:27 Synthroid - PO 88 mcg DAILY@0700 [facility] Administration Linezolid 600 mg 11/20/16 22:00 11/22/16 21:08 Zyvox (Restricted To Id) - PO 600 mg BID [facility] Administration Lisinopril 5 mg 11/18/16 10:00 11/22/16 09:42 Prinivil PO 5 mg DAILY [facility] Administration Metoprolol Succinate 25 mg 11/18/16 10:00 11/22/16 09:42 Toprol Xl - PO 25 mg DAILY [facility] Administration Ondansetron HCl 4 mg 11/17/16 16:24 Zofran Injection IVPB Q6H PRN NAUSEA Potassium Phos/Sodium Phos 1 packet 11/19/16 10:30 11/22/16 21:07 Phos-Nak Packet - PO 1 packet BID [facility] Administration Prednisone 20 mg 11/22/16 15:36 Deltasone - PO DAILY [facility] Objective: Vital Signs Period Temp Pulse Resp BP Sys/Yañez Pulse Ox Last 24 Hr 97.6 F-98.6 F 68-89 18-18 120-177/70-84 95-97 Physical Exam: General: NAD, A&Ox3 Lungs: CTA bilaterally Heart: RRR, S1S2 AbdL Soft, non-tender, non-distended. Normoactive bowel sounds Ext: Warm, well-perfused CBCD WBC 7.4 K/mm3 (4.0-10.0) 11/21/16 06:00 RBC 3.97 M/mm3 (4.00-5.60) L 11/21/16 06:00 Hgb 13.8 GM/dL (11.7-16.9) 11/21/16 06:00 Hct 39.9 % (35.4-49) 11/21/16 06:00 MCV 100.6 fl (80-96) H 11/21/16 06:00 MCHC 34.6 g/dl (32.0-35.9) 11/21/16 06:00 RDW 12.6 % (11.9-15.9) 11/21/16 06:00 Plt Count 188 K/MM3 (134-434) 11/21/16 06:00 MPV 9.0 fl (7.5-11.1) 11/21/16 06:00 CMP Sodium 137 mmol/L (136-145) 11/21/16 06:00 Potassium 4.2 mmol/L (3.5-5.1) 11/21/16 06:00 Chloride 104 mmol/L (98-107) 11/21/16 06:00 Carbon Dioxide 29 mmol/L (21-32) 11/21/16 06:00 Anion Gap 4 (8-16) L 11/21/16 06:00 BUN 19 mg/dL (7-18) H D 11/21/16 06:00 Creatinine 0.9 mg/dL (0.7-1.3) 11/21/16 06:00 Creat Clearance w eGFR > 60 (>60) 11/18/16 07:00 Random Glucose 143 mg/dL (74-106) H 11/21/16 06:00 Calcium 8.7 mg/dL (8.5-10.1) 11/21/16 06:00 Total Bilirubin 1.1 mg/dL (0.2-1.0) H D 11/19/16 05:49 AST 36 U/L (15-37) D 11/19/16 05:49 ALT 21 U/L (12-78) 11/19/16 05:49 Alkaline Phosphatase 62 U/L (45-117) 11/19/16 05:49 Total Protein 5.7 g/dl (6.4-8.2) L 11/19/16 05:49 Albumin 2.7 g/dl (3.4-5.0) L 11/19/16 05:49 CARDIAC ENZYMES Creatine Kinase 352 IU/L (39-308) H 11/20/16 06:30 Troponin I 0.02 ng/ml (0.00-0.05) D 11/20/16 06:30 Microbiology 11/17/16 13:41 Blood - Peripheral Venous Blood Culture - Final NO GROWTH AFTER 5 DAYS INCUBATION 11/17/16 13:35 Blood - Peripheral Venous Blood Culture - Final NO GROWTH AFTER 5 DAYS INCUBATION 11/17/16 13:07 Urine - Urine Clean Catch Urine Culture - Preliminary Staphylococcus Aureus Assessment: This is an 85 year old male with PMHx of HTN, hypothyroidism, hyperlipidemia, non-ischemic biventricular cardiomyopathy, severe PHTN, a.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 - Pt denies chest pain Non-obstructive CAD - Not on ASA because patient is on Eliquis - Continue Statin A.fib with hx of CVA - Continue Eliquis - Will need close cards follow-up to monitor falls risk 3) MSK: gout - Continue prednisone taper 4) Endocrine: Hypothyroidism - Continue Synthroid 5) F/E/N: - Monitor electrolytes - Fat controlled, cholesterol controlled diet 6) Prophylaxis: - OOB ambulating, observed ambulating well with walker - On Eliquis 7) Dispo: - D/c tomorrow CODE STATUS: FULL CODE Visit type - Emergency Visit Emergency Visit: Yes ED Registration Date: 11/17/16 Care time: The patient presented to the Emergency Department on the above date and was hospitalized for further evaluation of their emergent condition. - New Patient This patient is new to me today: No - Critical Care Critical Care patient: No
--- NOTE | 2016-11-23 09:19 | PN ---
Progress Note, Physician Chief Complaint: afib, fall History of Present Illness: denies cp, sob, leg swelling, palpit - Current Medication List Current Medications: Active Medications Acetaminophen (Tylenol -) 650 mg PO Q4H PRN PRN Reason: FEVER OR PAIN Last Admin: 11/22/16 21:08 Dose: 650 mg Apixaban (Eliquis -) 5 mg PO BID [facility] Last Admin: 11/22/16 21:07 Dose: 5 mg Lactobacillus Acidophilus (Bacid -) 1 tab PO DAILY [facility] Last Admin: 11/22/16 09:42 Dose: 1 tab Levothyroxine Sodium (Synthroid -) 88 mcg PO DAILY@0700 [facility] Last Admin: 11/23/16 06:27 Dose: 88 mcg Linezolid (Zyvox (Restricted To Id) -) 600 mg PO BID [facility] Last Admin: 11/22/16 21:08 Dose: 600 mg Lisinopril (Prinivil) 5 mg PO DAILY [facility] Last Admin: 11/22/16 09:42 Dose: 5 mg Metoprolol Succinate (Toprol Xl -) 25 mg PO DAILY [facility] Last Admin: 11/22/16 09:42 Dose: 25 mg Ondansetron HCl (Zofran Injection) 4 mg IVPB Q6H PRN PRN Reason: NAUSEA Potassium Phos/Sodium Phos (Phos-Nak Packet -) 1 packet PO BID [facility] Last Admin: 11/22/16 21:07 Dose: 1 packet Prednisone (Deltasone -) 20 mg PO DAILY [facility] - Objective Vital Signs: Vital Signs Temperature 97.6 F 11/23/16 06:00 Pulse Rate 78 11/23/16 06:00 Respiratory Rate 18 11/23/16 06:00 Blood Pressure 177/84 11/23/16 06:00 O2 Sat by Pulse Oximetry (%) 95 11/22/16 22:00 Constitutional: Yes: Well Nourished, No Distress, Calm Cardiovascular: Yes: Pulse Irregular, S1, S2. No: Gallop, Murmur Respiratory: Yes: Regular, CTA Bilaterally. No: Accessory Muscle Use, Rales, Wheezes Extremities: No: Cold Edema: No Neurological: Yes: Alert, Oriented Psychiatric: No: Agitated Labs: CBC, BMP 11/21/16 06:00 11/21/16 06:00 Assessment/Plan ekg: afib with pvc's. incomplete lbbb. non-specific t wave ab. Echo 10/2015: Mild global HK (more prominent HK at basal and mid milner) EF 45-50% . Mild RV dil with mildly depressed sys function. Severe ANNELIESE. Mild , Mild AR. Borderline prolapse of anterior leaflet with moderate post directed MR. Moderate TR. Severe pHTN. Dilated IVC. (thought to be volume up at the time) Echo 11/2016: tds, mod-sev dec lvef, global hk, nl rv, mod anneliese, mild-mod mr, mod tr, mild phtn, mild-mod ar, mild as, mild ao root dil Cath 03/2015 [facility]: LVEDP 9. EF 40%. 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 presyncope - negative orthostatic vitals - had been on aldactone as diuretic for le edema. LE edema here significantly improved. ? volume depletion in setting of infection and etoh. No other cardiac etiology apparent. - PT and rehab as doing elevated cardiac enzymes - intermediate trop elevation with flat trend in setting of rhabdo - ck 900's after being down on floor overnight (unable to get up from fall), and no ischemic ecg changes--likely due to hypotension or other supply-demand mismatch (Type II AL) or chronic LV dysfunction/high filling pressures - cath 2015 only mild (non-obstructive) CAD - no evidence of plaque rupture ACS here - no need for further ischemic work up at this time. non-obstructive cad, - not on ASA b/c has been on AC. - has been off statin due to LDL suppression. would hold for now in setting of elevated ck. 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 afib with h/o cva (on eliquis) - eliquis initially held in setting of fall. Had pt eval --> high fall risk, inpatient rehab recommended. Discussed with nursing and patient reliable in regards to calling for help when he needs to ambulate. Given that he will be in monitored setting here and then in rehab have resumed eliquis. - pt states to me that he has never fallen before, always uses walker at home. says dtr is a nurse and checks in on him often. -advised him he needs close f/u with dr bruner in office to monitor his balance and falls risk once back home--can consider LA appendage closure ( Watchman) at that time if remains at risk, in disc'n btw dr bruner and pt/dtr - con't rate control with metoprolol mod MR -stable htn, - patient bp typically runs low. currently good bp's on current regimen, continue. etoh - cessation counselled here, including risks of serious head injury or bleeding from AC uti: -abx per ID
[2016-11-23] MEDS ORDERED: PT OWN MED DRAWER 7, Y5N ONE ×2 (09:39→20:42)
[2016-11-23] MEDS: METOPROLOL SUCCINATE 25 MG TAB.SR.24H (FP) PO SCH (09:40)
[2016-11-23] MEDS: LACTOBACILLUS ACIDOPHILUS 1 EACH TAB (FP) PO SCH (09:40)
[2016-11-23] MEDS: LINEZOLID 600 MG TABLET (RESTRICTED TO ID) PO SCH ×3 (09:40→21:08)
[2016-11-23] MEDS: NAPH,MB-DB/K PH,MBDB POWDER PACKET PO SCH ×2 (09:41→21:07)
[2016-11-23] MEDS: APIXABAN 5 MG TABLET PO SCH ×3 (09:41→21:07)
[2016-11-23] MEDS: predniSONE 20 MG TABLET (UD) PO SCH (09:41)
[2016-11-23] MEDS: LISINOPRIL 5 MG TABLET (FP) PO SCH (09:41)
--- NOTE | 2016-11-23 13:48 | PN ---
Progress Note, Physician History of Present Illness: Pt alert, afebrile. No new events. Denies having any chills, abd pain, dysuria, n/v. - Current Medication List Current Medications: Active Medications Acetaminophen (Tylenol -) 650 mg PO Q4H PRN PRN Reason: FEVER OR PAIN Last Admin: 11/22/16 21:08 Dose: 650 mg Apixaban (Eliquis -) 5 mg PO BID [facility] Last Admin: 11/23/16 09:41 Dose: 5 mg Lactobacillus Acidophilus (Bacid -) 1 tab PO DAILY [facility] Last Admin: 11/23/16 09:40 Dose: 1 tab Levothyroxine Sodium (Synthroid -) 88 mcg PO DAILY@0700 [facility] Last Admin: 11/23/16 06:27 Dose: 88 mcg Linezolid (Zyvox (Restricted To Id) -) 600 mg PO BID [facility] Last Admin: 11/23/16 09:40 Dose: 600 mg Lisinopril (Prinivil) 5 mg PO DAILY [facility] Last Admin: 11/23/16 09:41 Dose: 5 mg Metoprolol Succinate (Toprol Xl -) 25 mg PO DAILY [facility] Last Admin: 11/23/16 09:40 Dose: 25 mg Ondansetron HCl (Zofran Injection) 4 mg IVPB Q6H PRN PRN Reason: NAUSEA Potassium Phos/Sodium Phos (Phos-Nak Packet -) 1 packet PO BID [facility] Last Admin: 11/23/16 09:41 Dose: 1 packet Prednisone (Deltasone -) 20 mg PO DAILY [facility] Last Admin: 11/23/16 09:41 Dose: 20 mg - Objective Vital Signs: Vital Signs Temperature 97.7 F 11/23/16 10:00 Pulse Rate 75 11/23/16 10:00 Respiratory Rate 20 11/23/16 10:00 Blood Pressure 121/69 11/23/16 10:00 O2 Sat by Pulse Oximetry (%) 95 11/23/16 09:00 Constitutional: Yes: No Distress, Calm Cardiovascular: Yes: Regular Rate and Rhythm Respiratory: Yes: Regular Gastrointestinal: Yes: Normal Bowel Sounds, Soft Genitourinary: Yes: WNL Integumentary: Yes: WNL Neurological: Yes: Alert, Oriented Labs: CBC, BMP 11/21/16 06:00 11/21/16 06:00 Problem List - Problems (1) Confused Code(s): R41.0 - DISORIENTATION, UNSPECIFIED (2) HTN (hypertension) Code(s): I10 - ESSENTIAL (PRIMARY) HYPERTENSION (3) Rhabdomyolysis Code(s): M62.82 - RHABDOMYOLYSIS Qualifiers: Rhabdomyolysis type: non-traumatic Qualified Code(s): M62.82 - Rhabdomyolysis (4) Syncope and collapse Code(s): R55 - SYNCOPE AND COLLAPSE (5) UTI (urinary tract infection) Code(s): N39.0 - URINARY TRACT INFECTION, SITE NOT SPECIFIED Qualifiers: Urinary tract infection type: acute cystitis Hematuria presence: with hematuria Qualified Code(s): N30.01 - Acute cystitis with hematuria Assessment/Plan Pt remains stable cont antibiotics monitor vitals
[2016-11-23] MEDS: ACETAMINOPHEN 325 MG TABLET (FP) PO PRN (20:58)
[2016-11-24] MEDS: LEVOTHYROXINE NA 88 MCG TABLET (FP) PO SCH (06:18)
[2016-11-24 07:03] LABS: BASOPHIL 0.2 % (0-2.0); EOSINOPHIL 1.2 % (0-4.5); MCHC 33.9 g/dl (32.0-35.9); MEAN CELL VOLUME 100.3 fl (80-96); MEAN PLT VOLUME 8.5 fl (7.5-11.1); PLATELET COUNT 179 K/MM3 (134-434); RDW 12.4 % (11.9-15.9); WHITE BLOOD COUNT 6.8 K/mm3 (4.0-10.0)
[2016-11-24 07:36] LABS: ALBUMIN 3.1 g/dl (3.4-5.0); ANION GAP 9 (8-16); CALCIUM 8.5 mg/dL (8.5-10.1); CO2 28 mmol/L (21-32); GLUCOSE,RANDOM 121 mg/dL (74-106); SGOT/AST 43 U/L (15-37); SGPT/ALT 83 U/L (12-78); TOT PROT 6.3 g/dl (6.4-8.2)
[2016-11-24 07:38] LABS: ALK PHOS 70 U/L (45-117)
--- NOTE | 2016-11-24 09:21 | PN ---
Progress Note, Physician Chief Complaint: afib History of Present Illness: no cp, sob, palpit, leg swelling - Current Medication List Current Medications: Active Medications Acetaminophen (Tylenol -) 650 mg PO Q4H PRN PRN Reason: FEVER OR PAIN Last Admin: 11/23/16 20:58 Dose: 650 mg Apixaban (Eliquis -) [address] [facility] Last Admin: 11/23/16 21:07 Dose: Not Given Lactobacillus Acidophilus (Bacid -) [address] [facility] Last Admin: 11/23/16 09:40 Dose: 1 tab Levothyroxine Sodium (Synthroid -) 88 mcg PO DAILY@0700 [facility] Last Admin: 11/24/16 06:18 Dose: 88 mcg Linezolid (Zyvox (Restricted To Id) -) [address] [facility] Last Admin: 11/23/16 21:08 Dose: Not Given Lisinopril (Prinivil) [address] [facility] Last Admin: 11/23/16 09:41 Dose: 5 mg Metoprolol Succinate (Toprol Xl -) [address] [facility] Last Admin: 11/23/16 09:40 Dose: 25 mg Ondansetron HCl (Zofran Injection) 4 mg IVPB Q6H PRN PRN Reason: NAUSEA Potassium Phos/Sodium Phos (Phos-Nak Packet -) [address] [facility] Last Admin: 11/23/16 21:07 Dose: 1 packet Prednisone (Deltasone -) [address] [facility] Last Admin: 11/23/16 09:41 Dose: 20 mg - Objective Vital Signs: Vital Signs Temperature 97.6 F 11/24/16 06:00 Pulse Rate 60 11/24/16 06:00 Respiratory Rate 18 11/24/16 06:00 Blood Pressure 149/80 11/24/16 06:00 O2 Sat by Pulse Oximetry (%) 97 11/23/16 22:00 Constitutional: Yes: Well Nourished, No Distress, Calm Cardiovascular: Yes: Pulse Irregular, S1, S2. No: Gallop, Murmur Respiratory: Yes: Regular, CTA Bilaterally. No: Accessory Muscle Use, Rales, Wheezes Extremities: No: Cold Edema: No Neurological: Yes: Alert, Oriented Psychiatric: No: Agitated Labs: CBC, BMP 11/24/16 06:30 11/24/16 06:30 Assessment/Plan ekg: afib with pvc's. incomplete lbbb. non-specific t wave ab. Echo 10/2015: Mild global HK (more prominent HK at basal and mid milner) EF 45-50% . Mild RV dil with mildly depressed sys function. Severe ANNELIESE. Mild , Mild AR. Borderline prolapse of anterior leaflet with moderate post directed MR. Moderate TR. Severe pHTN. Dilated IVC. (thought to be volume up at the time) Echo 11/2016: tds, mod-sev dec lvef, global hk, nl rv, mod anneliese, mild-mod mr, mod tr, mild phtn, mild-mod ar, mild as, mild ao root dil Cath 03/2015 [facility]: LVEDP 9. EF 40%. pLAD 30%, D2 60%, Ramus 50%, LCx 40%, pRCA calcified mild dz, a/p: 85 yo with h/o 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, non-obstructive cad, mod MR, afib with h/o cva (on eliquis), htn, hl, s/p remote LE bypass in setting of LE trauma, hypothyroid, BPH, prior heavy alcohol use, folate deficiency anemia, h/o throat CA s/p XRT, prior h/o falls at [facility] (no further falls since living at home up until this episode), IGT who presents with presyncope/fall and noted to have increased cardiac enzymes. presyncope - negative orthostatic vitals - had been on aldactone as diuretic for le edema. LE edema here significantly improved. ? volume depletion in setting of infection and etoh. No other cardiac etiology apparent. - PT and rehab as doing elevated cardiac enzymes - intermediate trop elevation with flat trend in setting of rhabdo - ck 900's after being down on floor overnight (unable to get up from fall), and no ischemic ecg changes--likely due to hypotension or other supply-demand mismatch (Type II NE) or chronic LV dysfunction/high filling pressures - cath 2015 only mild (non-obstructive) CAD - no evidence of plaque rupture ACS here - no need for further ischemic work up at this time. non-obstructive cad, - not on ASA b/c has been on AC. - has been off statin due to LDL suppression. would hold for now in setting of elevated ck. 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 afib with h/o cva (on eliquis) - eliquis initially held in setting of fall. Had pt eval --> high fall risk, inpatient rehab recommended. Discussed with nursing and patient reliable in regards to calling for help when he needs to ambulate. Given that he will be in monitored setting here and then in rehab have resumed eliquis. - pt states to me that he has never fallen before, always uses walker at home. says dtr is a nurse and checks in on him often. -advised him he needs close f/u with dr bruner in office to monitor his balance and falls risk once back home--can consider LA appendage closure ( Watchman) at that time if remains at risk, in disc'n btw dr bruner and pt/dtr - con't rate control with metoprolol mod MR -stable htn, - patient bp typically runs low. currently good bp's on current regimen, continue. etoh - cessation counselled here, including risks of serious head injury or bleeding from AC uti: -abx per ID
[2016-11-24] MEDS ORDERED: PT OWN MED DRAWER 7, Y5N ONE ×2 (09:50→10:30)
[2016-11-24] MEDS: LINEZOLID 600 MG TABLET (RESTRICTED TO ID) PO SCH (09:53)
[2016-11-24] MEDS: APIXABAN 5 MG TABLET PO SCH (09:53)
[2016-11-24] MEDS: predniSONE 20 MG TABLET (UD) PO SCH (09:54)
[2016-11-24] MEDS: LISINOPRIL 5 MG TABLET (FP) PO SCH (09:54)
[2016-11-24] MEDS: METOPROLOL SUCCINATE 25 MG TAB.SR.24H (FP) PO SCH (09:54)
[2016-11-24] MEDS: LACTOBACILLUS ACIDOPHILUS 1 EACH TAB (FP) PO SCH (09:55)
[2016-11-24 10:36] VITALS: BP 164/85; PULSE 88; TEMP 98
--- NOTE | 2016-11-24 19:33 | PN ---
Progress Note (short form) - Note Progress Note: Subjective: The patient was seen and examined at the bedside, sitting in chair. Doing well. Discussed in detail with daughter present bedside. Stable for discharge today. Current Medications Generic Name Dose Route Start Last Admin Trade Name Freq PRN Reason Stop Dose Admin Acetaminophen 650 mg 11/17/16 16:24 11/22/16 21:08 Tylenol - PO 650 mg Q4H PRN Administration FEVER OR PAIN Apixaban 5 mg 11/18/16 22:00 11/22/16 21:07 Eliquis - PO 5 mg BID NELSY Administration Lactobacillus Acidophilus 1 tab 11/18/16 10:00 11/22/16 09:42 Bacid - PO 1 tab DAILY NELSY Administration Levothyroxine Sodium 88 mcg 11/18/16 07:00 11/23/16 06:27 Synthroid - PO 88 mcg DAILY@0700 NELSY Administration Linezolid 600 mg 11/20/16 22:00 11/22/16 21:08 Zyvox (Restricted To Id) - PO 600 mg BID NELSY Administration Lisinopril 5 mg 11/18/16 10:00 11/22/16 09:42 Prinivil PO 5 mg DAILY NELSY Administration Metoprolol Succinate 25 mg 11/18/16 10:00 11/22/16 09:42 Toprol Xl - PO 25 mg DAILY NELSY Administration Ondansetron HCl 4 mg 11/17/16 16:24 Zofran Injection IVPB Q6H PRN NAUSEA Potassium Phos/Sodium Phos 1 packet 11/19/16 10:30 11/22/16 21:07 Phos-Nak Packet - PO 1 packet BID NELSY Administration Prednisone 20 mg 11/22/16 15:36 Deltasone - PO DAILY NELSY Objective: Vital Signs Period Temp Pulse Resp BP Sys/Yañez Pulse Ox Last 24 Hr 97.6 F-98.6 F 60-88 18-18 140-164/76-85 97-98 Physical Exam: General: NAD, A&Ox3 Lungs: CTA bilaterally Heart: RRR, S1S2 AbdL Soft, non-tender, non-distended. Normoactive bowel sounds Ext: Warm, well-perfused CBCD WBC 7.4 K/mm3 (4.0-10.0) 11/21/16 06:00 RBC 3.97 M/mm3 (4.00-5.60) L 11/21/16 06:00 Hgb 13.8 GM/dL (11.7-16.9) 11/21/16 06:00 Hct 39.9 % (35.4-49) 11/21/16 06:00 MCV 100.6 fl (80-96) H 11/21/16 06:00 MCHC 34.6 g/dl (32.0-35.9) 11/21/16 06:00 RDW 12.6 % (11.9-15.9) 11/21/16 06:00 Plt Count 188 K/MM3 (134-434) 11/21/16 06:00 MPV 9.0 fl (7.5-11.1) 11/21/16 06:00 CMP Sodium 137 mmol/L (136-145) 11/21/16 06:00 Potassium 4.2 mmol/L (3.5-5.1) 11/21/16 06:00 Chloride 104 mmol/L (98-107) 11/21/16 06:00 Carbon Dioxide 29 mmol/L (21-32) 11/21/16 06:00 Anion Gap 4 (8-16) L 11/21/16 06:00 BUN 19 mg/dL (7-18) H D 11/21/16 06:00 Creatinine 0.9 mg/dL (0.7-1.3) 11/21/16 06:00 Creat Clearance w eGFR > 60 (>60) 11/18/16 07:00 Random Glucose 143 mg/dL (74-106) H 11/21/16 06:00 Calcium 8.7 mg/dL (8.5-10.1) 11/21/16 06:00 Total Bilirubin 1.1 mg/dL (0.2-1.0) H D 11/19/16 05:49 AST 36 U/L (15-37) D 11/19/16 05:49 ALT 21 U/L (12-78) 11/19/16 05:49 Alkaline Phosphatase 62 U/L (45-117) 11/19/16 05:49 Total Protein 5.7 g/dl (6.4-8.2) L 11/19/16 05:49 Albumin 2.7 g/dl (3.4-5.0) L 11/19/16 05:49 CARDIAC ENZYMES Creatine Kinase 352 IU/L (39-308) H 11/20/16 06:30 Troponin I 0.02 ng/ml (0.00-0.05) D 11/20/16 06:30 Microbiology 11/17/16 13:41 Blood - Peripheral Venous Blood Culture - Final NO GROWTH AFTER 5 DAYS INCUBATION 11/17/16 13:35 Blood - Peripheral Venous Blood Culture - Final NO GROWTH AFTER 5 DAYS INCUBATION 11/17/16 13:07 Urine - Urine Clean Catch Urine Culture - Preliminary Staphylococcus Aureus Assessment: This is an 85 year old male with PMHx of HTN, hypothyroidism, hyperlipidemia, non-ischemic biventricular cardiomyopathy, severe PHTN, a.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
== END 2016-11-24 10:53 | disposition home health service (06) | DRG 690 ==
LOC: JER 10:03 → JERBED 13:37 → J4S 16:15
PROVIDERS: ADMIT Internal Medicine; ATTEND Internal Medicine
DX: N39.0 Urinary tract infection, site not specified (principal); M62.82 Rhabdomyolysis; I42.6 Alcoholic cardiomyopathy; R55 Syncope and collapse; I48.2 Chronic atrial fibrillation; F10.10 Alcohol abuse, uncomplicated; E03.9 Hypothyroidism, unspecified; E78.5 Hyperlipidemia, unspecified; I10 Essential (primary) hypertension; M10.9 Gout, unspecified; I25.10 Atherosclerotic heart disease of native coronary artery without angina pectoris; Z86.73 Personal history of transient ischemic attack (TIA), and cerebral infarction without residual deficits; N40.0 Benign prostatic hyperplasia without lower urinary tract symptoms
CPT/HCPCS: 36415; 70450-TC; 71010-TC; 71020-TC; 74230-TC; 80048; 80053; 80076; 81003; 81015; 82553; 83735; 84100; 84443; 84484; 84550; 85025; 87040; 87086; 87186; 92611-GN; 93005; 93010; 93306-TC; 93880-TC; 97116-GP; 97161-GP; 99285-25

== ENCOUNTER 2017-03-13 16:33 | Emergency (ER) | payer OTHER ==
--- NOTE | 2017-03-13 16:39 | PDOC ---
Rapid Medical Evaluation Chief Complaint: Shortness of Breath Time Seen by Provider: 03/13/17 16:35 Medical Evaluation: Allergies Allergy/AdvReac Type Severity Reaction Status Date / Time No Known Allergies Allergy Verified 03/13/17 16:34 03/13/17 16:36 Pt presents to the ED with complaints of: cough , sob, orthopnea, hx chf, afib On brief exam: vss, LCTA, took albuterol PROGRAMMER Pt ordered for: ekg, cxr Pt to proceed to the ED Discharge Disposition - Diagnosis Cough - Referrals - Patient Instructions - Post Discharge Activity
[2017-03-13 16:40] VITALS: BP 146/81; PULSE 77; TEMP 97.4; BMI 29.1
--- NOTE | 2017-03-13 17:09 | PDOC ---
History of Present Illness <Aleksandr Olson - Last Filed: 03/13/17 17:48> - History of Present Illness Initial Comments: 03/13/17 17:21 Mr. 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 Per daughter who is a nurse at [employer], they have tried several over the counter medications including advair and theraflu with minimal improvement. Mr. Gutierrez reports his symptoms are worse at night and he is sometimes short of breath although he denies any exertional dyspnea. Endorses subjective fevers and chills for the last few days. The patient denies chest pain, shortness of breath, headache and dizziness. Denies nausea, vomit, diarrhea and constipation. Denies dysuria, frequency, urgency and hematuria. Allergies: NKDA <Edward Corbett - Last Filed: 03/13/17 18:58> - General Chief Complaint: Shortness of Breath Stated Complaint: S.O.B Time Seen by Provider: 03/13/17 16:35 Past History <Aleksandr Olson - Last Filed: 03/13/17 17:48> - Past Medical History Anemia: No Asthma: No Cancer: Yes (THROAT) Cardiac Disorders: Yes (a.fib) CVA: Yes COPD: No CHF: No Dementia: No Diabetes: No GI Disorders: No Disorders: No HTN: Yes Hypercholesterolemia: Yes Liver Disease: No Seizures: No Thyroid Disease: Yes - Surgical History Abdominal Surgery: No Appendectomy: No Cardiac Surgery: Yes (card cath no stent) Cholecystectomy: No Lung Surgery: No Neurologic Surgery: No Orthopedic Surgery: Yes (L. Leg) - Immunization History Immunization Up to Date: Yes - Suicide/Smoking/Psychosocial Hx Smoking Status: No Smoking History: Never smoked Have you smoked in the past 12 months: No Number of Cigarettes Smoked Daily: 0 Information on smoking cessation initiated: No Hx Alcohol Use: Yes (3 beers daily) Drug/Substance Use Hx: Yes Substance Use Type: None Hx Substance Use Treatment: No <Edward Corbett - Last Filed: 03/13/17 18:58> - Past Medical History Allergies/Adverse Reactions: Allergies Allergy/AdvReac Type Severity Reaction Status Date / Time No Known Allergies Allergy Verified 03/13/17 16:34 Home Medications: Ambulatory Orders Apixaban [Eliquis] 5 mg PO DAILY 03/13/17 Azithromycin [Zithromax -] 250 mg PO UTDICT #6 tab 03/13/17 Furosemide [Lasix -] 20 mg PO PRN PRN 03/13/17 Levothyroxine [Synthroid -] 0 mcg PO DAILY 03/13/17 Lisinopril [Zestril] 5 mg PO DAILY 03/13/17 Metoprolol Succinate 25 mg PO DAILY 03/13/17 Spironolactone [Aldactone] 25 mg PO DAILY 03/13/17 Review of Systems - Review of Systems Comments:: 03/13/17 18:50 GENERAL/CONSTITUTIONAL: No fever or chills. No weakness. HEAD, EYES, EARS, NOSE AND THROAT: No change in vision. No ear pain or discharge. No sore throat. CARDIOVASCULAR: No chest pain or shortness of breath RESPIRATORY: +3 days of cough with wheezing, cough productive of green sputum. No hemoptysis. GASTROINTESTINAL: No nausea, vomiting, diarrhea or constipation. GENITOURINARY: No dysuria, frequency, or change in urination. MUSCULOSKELETAL: No joint or muscle swelling or pain. No neck or back pain. SKIN: No rash NEUROLOGIC: No headache, vertigo, loss of consciousness, or change in strength/ sensation. ENDOCRINE: No increased thirst. No abnormal weight change HEMATOLOGIC/LYMPHATIC: No anemia, easy bleeding, or history of blood clots. ALLERGIC/IMMUNOLOGIC: No hives or skin allergy. <Edward Corbett - Last Filed: 03/13/17 18:58> *Physical Exam - Vital Signs Last Vital Signs Temp Pulse Resp BP Pulse Ox 97.4 F L 77 18 146/81 100 03/13/17 16:35 03/13/17 16:35 03/13/17 16:35 03/13/17 16:35 03/13/17 16:35 <Aleksandr Olson - Last Filed: 03/13/17 17:48> - Vital Signs Last Vital Signs Temp Pulse Resp BP Pulse Ox 97.4 F L 77 18 146/81 100 03/13/17 16:35 03/13/17 16:35 03/13/17 16:35 03/13/17 16:35 03/13/17 16:35 - Physical Exam Comments: 03/13/17 18:51 GENERAL: Awake, alert, and fully oriented, in no acute distress HEAD: No signs of trauma, normocephalic, atraumatic EYES: PERRLA, EOMI, sclera anicteric, conjunctiva clear ENT: Auricles normal inspection, hearing grossly normal, nares patent, oropharynx clear without exudates. Moist mucosa NECK: Normal ROM, supple, no lymphadenopathy, JVD, or masses LUNGS: No distress, speaks full sentences, clear to auscultation bilaterally HEART: Regular rate and rhythm, normal S1 and S2, no murmurs, rubs or gallops, peripheral pulses normal and equal bilaterally. ABDOMEN: Soft, nontender, normoactive bowel sounds. No guarding, no rebound. No masses EXTREMITIES: Normal inspection, Normal range of motion, no edema. No clubbing or cyanosis. NEUROLOGICAL: Cranial nerves II through XII grossly intact. Normal speech, normal gait, no focal sensorimotor deficits SKIN: Warm, Dry, normal turgor, no rashes or lesions noted. <Edward Corbett - Last Filed: 03/13/17 18:58> ED Treatment Course - LABORATORY CBC & Chemistry Diagram: 03/13/17 17:45 03/13/17 17:45 <Edward Corbett - Last Filed: 03/13/17 18:58> Medical Decision Making - Medical Decision Making 03/13/17 18:52 Mr. 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 bacterial pulmonary illness. Reports some relief with 1 duoneb. Labs all grossly wnl. Will proscribe z-pack and discharge to home with instructions to f/u with pcp in 1-2 days. Patient/daughter verbalized understanding and will comply. <Edward Corbett - Last Filed: 03/13/17 18:58> *DC/Admit/Observation/Transfer <Aleksandr Olson - Last Filed: 03/13/17 17:48> <Edward Corbett - Last Filed: 03/13/17 18:58> Diagnosis at time of Disposition: Cough - Discharge Dispostion Disposition: HOME - Referrals Referrals: Tez Adams MD [Primary Care Provider] - - Patient Instructions Printed Discharge Instructions: DI for Viral Upper Respiratory Infection -- Adult Additional Instructions: Please return if any increase or continuation of cough, pain, fever, or any other concerning symptoms.
--- NOTE | 2017-03-13 17:48 | PDOC ---
Attending Attestation - Resident Resident Name: Edward Corbett - ED Attending Attestation I have performed the following: I have examined & evaluated the patient, The case was reviewed & discussed with the resident, I agree w/resident's findings & plan, Exceptions are as noted - HPI HPI: 03/13/17 17:46 86y M hx of CAD, afib on eliquis, HL, presents with complaint of SB presents with complaint of cough productive of greenish sputum for the past 3 days, worse at night, +subjective fevers, no cp, mccabe, leg swelling, minimal nasal congestion. Pt has been treated by his daughter using OTC meds/nebs without significant improvement. on exam pt has some wheezing, and paroxysms of cough. no focal rales noted minimal leg swelling. suspect URI cxr inconsistent with pna pt feeling well after a neb here will give pt a zpack and if labs unremarkable will d/c with pmd fu for treatment as outpatient. - Physicial Exam PE: 03/13/17 20:15 see above - Medical Decision Making 03/13/17 20:15 see above Heart Score/ECG Review - ECG Impressions Comment:: 03/13/17 18:42 Twelve-lead EKG was performed and reviewed by me. Irregularly irregular Rate of 79 PVCs present Abnormal R wave progression Impression atrophic relation
[2017-03-13] MEDS ORDERED: ALBUTEROL SO4 2.5/IPRATROPIUM 0.5 INH SOL 3 ML VIAL.NEB. NEB ONE ×2 (17:55→17:57)
[2017-03-13 18:14] LABS: BASO % 0.7 % (0-2.0); EOS % 2.6 % (0-4.5); HEMATOCRIT 38.5 % (35.4-49); LYMPH % 21.3 % (8-40); MCH 33.4 pg (25.7-33.7); MCHC 33.7 g/dl (32.0-35.9); MEAN CELL VOLUME 99.3 fl (80-96); MONO % 14.9 % (3.8-10.2); NEUT % 60.5 % (42.8-82.8); PLATELET COUNT 156 K/MM3 (134-434); RBC 3.88 M/mm3 (4.00-5.60); RDW 12.9 % (11.9-15.9); WHITE BLOOD COUNT 3.5 K/mm3 (4.0-10.0)
[2017-03-13 18:45] LABS: ALBUMIN 3.2 g/dl (3.4-5.0); ANION GAP 6 (8-16); BLOOD UREA NITROGEN 16 mg/dL (7-18); CALCIUM 7.7 mg/dL (8.5-10.1); CHLORIDE 101 mmol/L (98-107); CO2 29 mmol/L (21-32); GLUCOSE,RANDOM 138 mg/dL (74-106); SGPT/ALT 31 U/L (12-78); SODIUM 136 mmol/L (136-145)
[2017-03-13 18:49] LABS: ALK PHOS 84 U/L (45-117); BILIRUBIN,TOTAL 0.5 mg/dL (0.2-1.0); TOT PROT 7.1 g/dl (6.4-8.2)
[2017-03-13 18:52] LABS: POTASSIUM 4.4 mmol/L (3.5-5.1); SGOT/AST 32 U/L (15-37)
[2017-03-13] MEDS ORDERED: AZITHROMYCIN 250 MG TABLET PO ONE (18:55)
[2017-03-13] MEDS ORDERED: AZITHROMYCIN 250 MG TABLET ONE ×2 (18:59→19:00)
--- NOTE | 2017-03-14 13:29 | EKG ---
Test Reason : Blood Pressure : / mmHG Vent. Rate : 079 BPM Atrial Rate : 081 BPM P-R Int : 000 ms QRS Dur : 108 ms QT Int : 376 ms P-R-T Axes : 000 018 085 degrees QTc Int : 431 ms ATRIAL FIBRILLATION WITH PREMATURE VENTRICULAR OR ABERRANTLY CONDUCTED COMPLEXES ANTERIOR INFARCT , AGE UNDETERMINED ABNORMAL ECG WHEN COMPARED WITH ECG OF 17-NOV-2016 11:39, NO SIGNIFICANT CHANGE WAS FOUND Confirmed by PETE KEY MD ([id number]) on 03/14/2017 1:29:08 PM Referred By: Confirmed By:PETE KEY MD
== END 2017-03-13 19:47 | disposition home or self-care (01) ==
LOC: JER 16:33
PROC: 3E0F7GC Introduction of Other Therapeutic Substance into Respiratory Tract, Via Natural or Artificial Opening (ICD-10-PCS; principal; 2017-03-13)
DX: J06.9 Acute upper respiratory infection, unspecified (principal); I50.9 Heart failure, unspecified; I48.91 Unspecified atrial fibrillation; Z79.01 Long term (current) use of anticoagulants; I25.2 Old myocardial infarction; F03.90 Unspecified dementia, unspecified severity, without behavioral disturbance, psychotic disturbance, mood disturbance, and anxiety; Z86.73 Personal history of transient ischemic attack (TIA), and cerebral infarction without residual deficits; I10 Essential (primary) hypertension; Z85.819 Personal history of malignant neoplasm of unspecified site of lip, oral cavity, and pharynx
CPT/HCPCS: 36415; 71046-TC; 80053; 82550; 84484; 85025; 93005; 93010; 94640; 99282-25

== ENCOUNTER 2018-11-22 10:14 | Emergency (ER) | payer OTHER | END 2018-11-22 14:57 | disposition home or self-care (01) | LOC: JER 10:14 ==

== ENCOUNTER 2019-01-06 13:48 | Emergency (ER) | payer OTHER ==
[2019-01-06 14:01] VITALS: BMI 30.2
--- NOTE | 2019-01-06 14:52 | PDOC ---
History of Present Illness - General Chief Complaint: Respiratory Stated Complaint: COUGH/CHEST TIGHNESS/LT.ARM PAIN Time Seen by Provider: 01/06/19 14:11 History Source: Patient Exam Limitations: No Limitations - History of Present Illness Initial Comments: 01/06/19 14:59 88 yo M with a hx of afib (on eliquis), CVA, HTN, HLD, systolic CHF (last echo 45% LVEF) and CAD presents to the emergency department with with his nursing officer for concerns of pneumonia with concurrent rhinorrhea. Per the nursing officer , she states the patient had rhinorrhea begin on Thursday with coughing. He has been asymptomatic since, but has concerns for pneumonia. Per the patient (A&Ox2 ; not to date), he states he does not have any problems and feels fine. Denies the following: fever, chills, SOB, chest pain, coughs, nausea, vomiting, abdominal pain, dysuria, hematuria, diarrhea, melena, and leg pain/swelling. Past History - Past Medical History Allergies/Adverse Reactions: Allergies Allergy/AdvReac Type Severity Reaction Status Date / Time No Known Allergies Allergy Verified 03/13/17 16:34 Home Medications: Ambulatory Orders Apixaban [Eliquis] 5 mg PO DAILY 03/13/17 Furosemide [Lasix -] 20 mg PO PRN PRN 03/13/17 Levothyroxine [Synthroid -] 0 mcg PO DAILY 03/13/17 Lisinopril [Zestril] 5 mg PO DAILY 03/13/17 Metoprolol Succinate 25 mg PO DAILY 03/13/17 Spironolactone [Aldactone] 25 mg PO DAILY 03/13/17 Lidocaine [Lidocaine Pain Relief] 1 each TP DAILY #4 adh..patch 11/22/18 Anemia: No Asthma: No Cancer: Yes (THROAT) Cardiac Disorders: Yes (a.fib) CVA: Yes COPD: No CHF: No Dementia: No Diabetes: No GI Disorders: No Disorders: No HTN: Yes Hypercholesterolemia: Yes Liver Disease: No Seizures: No Thyroid Disease: Yes - Surgical History Abdominal Surgery: No Appendectomy: No Cardiac Surgery: Yes (card cath no stent) Cholecystectomy: No Lung Surgery: No Neurologic Surgery: No Orthopedic Surgery: Yes (L. Leg) - Immunization History Immunization Up to Date: Yes - Psycho Social/Smoking Cessation Hx Smoking Status: No Smoking History: Never smoked Have you smoked in the past 12 months: No Number of Cigarettes Smoked Daily: 0 Information on smoking cessation initiated: No Hx Alcohol Use: No Drug/Substance Use Hx: No Substance Use Type: None Hx Substance Use Treatment: No Review of Systems - Review of Systems Able to Perform ROS?: Yes Is the patient limited Chinese proficient: No Constitutional: No: Chills, Diaphoresis, Fever, Weakness HEENTM: No: Eye Pain, Ear Pain, Nose Pain, Throat Pain, Mouth Pain Respiratory: No: Cough, Shortness of Breath, Hemoptysis Cardiac (ROS): No: Chest Pain, Lightheadedness, Palpitations, Syncope ABD/GI: No: Constipated, Diarrhea, Nausea, Rectal Bleeding, Vomiting, Tarry Stools : No: Burning, Dysuria, Hematuria, Incontinence Musculoskeletal: No: Back Pain, Joint Pain, Neck Pain Integumentary: No: Bruising, Erythema, Rash Neurological: No: Headache, Numbness, Tingling, Tremors Psychiatric: No: Change in Appetite Endocrine: No: Unexplained Weight Gain Hematologic/Lymphatic: No: Anemia *Physical Exam - Vital Signs Last Vital Signs Temp Pulse Resp BP Pulse Ox 98.4 F 58 L 16 151/79 98 01/06/19 13:57 01/06/19 13:57 01/06/19 13:57 01/06/19 13:57 01/06/19 13:57 - Physical Exam General Appearance: Yes: Nourished, Appropriately Dressed. No: Apparent Distress, Intoxicated HEENT: positive: EOMI, LINNETTE, Normal Voice, Symmetrical, Hearing Grossly Normal. negative: Pale Conjunctivae, Scleral Icterus (R), Scleral Icterus (L), Muffled /Hoarse voice, Excessive drooling Neck: positive: Trachea midline, Supple. negative: Tender Respiratory/Chest: positive: Lungs Clear, Normal Breath Sounds. negative: Chest Tender, Respiratory Distress, Accessory Muscle Use, Rhonchi, Stridor, Wheezing Cardiovascular: positive: Regular Rate, S1, S2, Irregularly Irregular. negative : Edema, Systolic Murmur Gastrointestinal/Abdominal: positive: Normal Bowel Sounds, Flat, Soft. negative : Tender Musculoskeletal: positive: Normal Inspection. negative: CVA Tenderness, Vertebral Tenderness Extremity: positive: Normal Capillary Refill, Normal Inspection, Normal Range of Motion. negative: Tender, Swelling, Calf Tenderness Integumentary: positive: Normal Color, Dry, Warm Neurologic: positive: Alert, Normal Mood/Affect. negative: Fully Oriented (not oriented to date) Medical Decision Making - Medical Decision Making 01/06/19 15:07 88 yo M with a hx of afib (on eliquis), CVA, HTN, HLD, systolic CHF (last echo 45% LVEF) and CAD presents to the emergency department with with his nursing officer for concerns of pneumonia with concurrent rhinorrhea Initial vitals; Initial Vital Signs Temp Pulse Resp BP Pulse Ox 98.4 F 58 L 16 151/79 98 01/06/19 13:57 01/06/19 13:57 01/06/19 13:57 01/06/19 13:57 01/06/19 13:57 Discharge - Discharge Information Problems reviewed: Yes Clinical Impression/Diagnosis: Elbow pain Disposition: HOME - Admission No - Follow up/Referral Referrals: Tez Adams MD [Primary Care Provider] - Elliot Dorsey MD [Staff Physician] - - Patient Discharge Instructions Additional Instructions: You were seen in the emergency department for your cough and elbow pain. No fracture noted. Please follow up with Dr. Dorsey within 1 week after discharge for follow up care and management. Please return to the emergency department if you have worsening pain or new concerns. Thank you. - Post Discharge Activity
--- NOTE | 2019-01-06 15:44 | PDOC ---
Attending Attestation - Resident Resident Name: Jagdish Mahoney - ED Attending Attestation I have performed the following: I have examined & evaluated the patient, The case was reviewed & discussed with the resident, I agree w/resident's findings & plan, Exceptions are as noted - HPI HPI: 01/06/19 15:43 88 M with h/o afib on eliquis, CVA, HTN, HLD, CHF, CAD, presenting to ED with cough and nasal congestion. Pt's aide states that he started having a runny nose 3 days ago. He subsequently developed a dry cough, but this has since improved. Pt denies any symptoms at this time. Denies F/C. Denies CP/SOB. Denies leg swelling. - Physicial Exam PE: 01/06/19 15:43 "GENERAL: Awake, alert, and fully oriented, in no acute distress. HEAD: No signs of trauma EYES: PERRLA, EOMI, sclera anicteric, conjunctiva clear ENT: Auricles normal inspection, hearing grossly normal, nares patent, oropharynx clear without exudates. Moist mucosa NECK: Nontender, no stepoffs, Normal ROM, supple, no lymphadenopathy, JVD, or masses LUNGS: Breath sounds equal, clear to auscultation bilaterally. No wheezes, and no crackles HEART: Regular rate and rhythm, normal S1 and S2, no murmurs, rubs or gallops ABDOMEN: Soft, nontender, normoactive bowel sounds. No guarding, no rebound. No masses EXTREMITIES: Normal range of motion, no edema. No clubbing or cyanosis. No cords, erythema, or tenderness NEUROLOGICAL: Cranial nerves II through XII intact. 5/5 strength and sensation in all extremities, Normal speech, normal gait, normal cerebellar function SKIN: Warm, Dry, normal turgor, no rashes or lesions noted. - Medical Decision Making 01/06/19 15:44 88 M with nasal congestion and cough. Vitals and exam are unremarkable. - CXR 01/06/19 17:23 CXR clear ELbow xr shows possible joint effusion. Pt has full ROM of elbow, will discuss with ortho 01/06/19 17:[address] Dorsey, who does not recommend any intervention or splint. Will f/u with pt in office. Pt is well appearing, with normal vitals. Clinically stable for DC at this time. I discussed the physical exam findings, ancillary test results and final diagnoses with the patient. I answered all of the patient's questions. The patient was satisfied with the care received and felt comfortable with the discharge plan and treatment plan. The patient agrees to follow up with the primary care physician within 24-72 hours.
[2019-01-06 17:39] VITALS: BP 120/71; PULSE 68; TEMP 97.9
--- NOTE | 2019-01-07 14:38 | EKG ---
Test Reason : Blood Pressure : / mmHG Vent. Rate : 092 BPM Atrial Rate : 063 BPM P-R Int : 000 ms QRS Dur : 108 ms QT Int : 364 ms P-R-T Axes : 000 016 116 degrees QTc Int : 450 ms POOR DATA QUALITY, INTERPRETATION MAY BE ADVERSELY AFFECTED ATRIAL FIBRILLATION INCOMPLETE LEFT BUNDLE BRANCH BLOCK NONSPECIFIC T WAVE ABNORMALITY ABNORMAL ECG WHEN COMPARED WITH ECG OF 22-NOV-2018 10:33, NO SIGNIFICANT CHANGE WAS FOUND Confirmed by PETE KEY MD ([id number]) on 01/07/2019 2:38:03 PM Referred By: Confirmed By:PETE KEY MD
== END 2019-01-06 17:50 | disposition home or self-care (01) ==
LOC: JER 13:48
DX: M25.421 Effusion, right elbow (principal); I25.10 Atherosclerotic heart disease of native coronary artery without angina pectoris; I11.0 Hypertensive heart disease with heart failure; I50.20 Unspecified systolic (congestive) heart failure; Z98.61 Coronary angioplasty status; I48.91 Unspecified atrial fibrillation; Z79.01 Long term (current) use of anticoagulants; E78.5 Hyperlipidemia, unspecified; E78.00 Pure hypercholesterolemia, unspecified; E03.9 Hypothyroidism, unspecified; Z86.73 Personal history of transient ischemic attack (TIA), and cerebral infarction without residual deficits; Z85.819 Personal history of malignant neoplasm of unspecified site of lip, oral cavity, and pharynx
CPT/HCPCS: 71046-TC-FY; 73070-TC-RT-FY; 93005; 93010; 99282-25

== ENCOUNTER 2019-09-10 13:42 | Emergency (ER) | payer OTHER ==
[2019-09-10 13:47] VITALS: TEMP 97.9; BMI 30.2
--- NOTE | 2019-09-10 14:12 | PDOC ---
History of Present Illness - History of Present Illness Initial Comments: 09/10/19 13:56 HPI: 88 y/o M with hx of afib (on eliquis), CVA, HTN, HLD, systolic CHF (last echo 45% LVEF) and CAD presenting with burning pain on urination associated with suprapubic discomfort x2-3 weeks. Reports pain may be worsening; is only present on urination. Recently noticed pink tinge to his urine. Denies any radiation of pain and describes as 5/10. Never had symptoms before. Also reports difficulty retracting foreskin. Denies an discharge, fever, chills, diarrhea, constipation, change in appetite, change in vision, joint pain. Of note, he lives alone at a care home facility and has an aid 4x/week. PMHx: as noted above ROS: as noted SHx: Denies tobacco use; no alcohol use; no rec drugs Allergies: NKDA ROS: GENERAL/CONSTITUTIONAL: No fever or chills. No weakness. HEAD, EYES, EARS, NOSE AND THROAT: No change in vision. No ear pain or discharge. No sore throat. CARDIOVASCULAR: No chest pain or shortness of breath RESPIRATORY: No cough, wheezing, or hemoptysis. GASTROINTESTINAL: No nausea, vomiting, diarrhea or constipation. GENITOURINARY: +dysuria; no frequency MUSCULOSKELETAL: No joint or muscle swelling or pain. No neck or back pain. SKIN: No rash NEUROLOGIC: No headache, vertigo, loss of consciousness, or change in strength/sensation. ENDOCRINE: No increased thirst. No abnormal weight change HEMATOLOGIC/LYMPHATIC: No anemia, easy bleeding, or history of blood clots. ALLERGIC/IMMUNOLOGIC: No hives or skin allergy. PE: GENERAL: Awake, alert, and fully oriented, no acute distress HEAD: No signs of trauma, normocephalic, atraumatic EYES: EOMI, sclera anicteric, conjunctiva clear ENT: Auricles normal inspection, hearing grossly normal, nares patent, oropharynx clear without exudates. Moist mucosa NECK: Normal ROM, no lymphadenopathy LUNGS: No increased work of breathing, symmetrical chest rise HEART: Regular rate, regular rhythm, peripheral pulses 2+ and equal bilaterally. ABDOMEN: Soft, nondistended, nontender. No guarding, no rebound. No masses. No CVAT : non-circumcised foreskin unable to be retracted to visualize glans, mild erythema at distal foreskin with mild edema, nontender, normal shaft, normal testicular exam without evidence of hernia MUSCULOSKELETAL: FROM NEUROLOGICAL: Cranial nerves II through XII grossly intact. Normal speech, stable gait, no focal sensorimotor deficits SKIN: Warm, Dry, normal turgor, no rashes or lesions noted <Chelsi Hussein - Last Filed: 09/10/19 17:47> <Dayanna Gutiérrez - Last Filed: 09/10/19 17:52> - General Chief Complaint: Urinary Problem Stated Complaint: URINARY PROBLEM Time Seen by Provider: 09/10/19 13:52 Past History - Medical History Anemia: No Asthma: No Cancer: Yes (THROAT) Cardiac Disorders: Yes (a.fib) CVA: Yes COPD: No CHF: No Dementia: No Diabetes: No GI Disorders: No Disorders: No HTN: Yes Hypercholesterolemia: Yes Liver Disease: No Seizures: No Thyroid Disease: Yes - Surgical History Abdominal Surgery: No Appendectomy: No Cardiac Surgery: Yes (card cath no stent) Cholecystectomy: No Lung Surgery: No Neurologic Surgery: No Orthopedic Surgery: Yes (L. Leg) - Immunization History Immunization Up to Date: Yes - Psycho-Social/Smoking History Smoking Status: No Smoking History: Never smoked Have you smoked in the past 12 months: No Number of Cigarettes Smoked Daily: 0 - Substance Abuse Hx (Audit-C & DAST Scrn) How often the patient has a drink containing alcohol: Never Score: In Men: 4 or > Positive; In Women: 3 or > Positive: 0 Screen Result (Pos requires Nsg. Audit-10AR): Negative <Chelsi Hussein - Last Filed: 09/10/19 17:47> <Dayanna Gutiérrez - Last Filed: 09/10/19 17:52> - Medical History Allergies/Adverse Reactions: Allergies Allergy/AdvReac Type Severity Reaction Status Date / Time No Known Allergies Allergy Verified 03/13/17 16:34 Home Medications: Ambulatory Orders Apixaban [Eliquis] 5 mg PO DAILY 03/13/17 Furosemide [Lasix -] 20 mg PO PRN PRN 03/13/17 Levothyroxine [Synthroid -] 0 mcg PO DAILY 03/13/17 Lisinopril [Zestril] 5 mg PO DAILY 03/13/17 Metoprolol Succinate 25 mg PO DAILY 03/13/17 Spironolactone [Aldactone] 25 mg PO DAILY 03/13/17 Lidocaine [Lidocaine Pain Relief] 1 each TP DAILY #4 adh..patch 11/22/18 Cephalexin [Keflex] 500 mg PO TID #21 capsule 09/10/19 Clotrimazole 1 applic TP BID #1 bottle 09/10/19 *Physical Exam - Vital Signs Last Vital Signs Temp Pulse Resp BP Pulse Ox 97.9 F 61 20 156/72 97 09/10/19 13:44 09/10/19 13:44 09/10/19 13:44 09/10/19 13:44 09/10/19 13:44 <Chelsi Hussein - Last Filed: 09/10/19 17:47> - Vital Signs Last Vital Signs Temp Pulse Resp BP Pulse Ox 97.9 F 90 20 114/61 93 L 09/10/19 13:44 09/10/19 17:00 09/10/19 13:44 09/10/19 17:00 09/10/19 17:00 <Dayanna Gutiérrez - Last Filed: 09/10/19 17:52> ED Treatment Course - ADDITIONAL ORDERS Additional order review: Laboratory Results 09/10/19 14:05 Urine Color Yellow Urine Appearance Clear Urine pH 5.0 Ur Specific [place] 1.010 Urine Protein Negative Urine Glucose (UA) Negative Urine Ketones Negative Urine Blood 1+ H Urine Nitrite Negative Urine Bilirubin Negative Urine Urobilinogen 0.2 Ur Leukocyte Esterase 2+ H Urine WBC (Auto) 121 Urine RBC (Auto) 53 Urine Casts (Auto) 1 U Epithel Cells (Auto) 23 U Sm Round Cell (Auto) No seen Urine Bacteria (Auto) 20 - RADIOLOGY Radiology Studies Ordered: Category Date Time Status SCROTUM AND CONTENTS US [US] Stat Ultrasound 09/10/19 14:46 Taken <Dayanna Gutiérrez - Last Filed: 09/10/19 17:52> Medical Decision Making - Medical Decision Making 09/10/19 15:42 88 y/o M with hx of afib (on eliquis), CVA, HTN, HLD, systolic CHF (last echo 45% LVEF) and CAD presenting with burning pain on urination associated with suprapubic discomfort x2-3 weeks associated with difficulty foreskin retraction. VSS, AF. PE with phimosis and foreskin erythema. DDx includes UTI, balanitis. -ua, ucx 09/10/19 15:43 UA scrotum to assess for right inguinal pain ua with evidence of uti will treat for combined uti and balanitis will discuss appropriate hygiene and send scripts for keflex and clotrimazole <Chelsi Hussein - Last Filed: 09/10/19 17:47> Discharge - Discharge Information Problems reviewed: Yes <Chelsi Hussein - Last Filed: 09/10/19 17:47> <GutiérrezDayanna Willowsha - Last Filed: 09/10/19 17:52> - Discharge Information Clinical Impression/Diagnosis: Balanitis, Phimosis of penis UTI (urinary tract infection) Qualifiers: Urinary tract infection type: site unspecified Hematuria presence: with hematuria Qualified Code(s): N39.0 - Urinary tract infection, site not specified Condition: Stable Disposition: HOME - Additional Discharge Information Prescriptions: Clotrimazole 1 applic TP BID #1 bottle Cephalexin [Keflex] 500 mg PO TID #21 capsule - Follow up/Referral Referrals: Tez Adams MD [Primary Care Provider] - Temo Alvarado MD [Staff Physician] - Da Ortega MD [Staff Physician] - Christian Mortensen MD [Staff Physician] - Shaq Schultz MD [Staff Physician] - - Patient Discharge Instructions Patient Printed Discharge Instructions: DI for Urinary Tract Infection (UTI), DI for Balanitis Additional Instructions: Additional Instructions: Please return to the emergency department with any new or worsening symptoms or concerns including fevers, worsening pain, worsening redness or the penis, penile discharge. Please follow up with one of the urologists that have been provided in your discharge paperwork next week. Please take Keflex 500mg three times a day for 7 days Please ensure adequate hygiene of the penis; wash with warm water at least twice a day Please retract the foreskin without causing pain and apply clotrimazole cream twice a day
--- NOTE | 2019-09-10 14:33 | PDOC ---
Attending Attestation - Resident Resident Name: David Mcmillan - ED Attending Attestation I have performed the following: I have examined & evaluated the patient, The case was reviewed & discussed with the resident, I agree w/resident's findings & plan - HPI HPI: 09/10/19 14:32 88 y/o M with hx of afib (on eliquis), CVA, HTN, HLD, systolic CHF (last echo 45% LVEF) and CAD presenting with burning pain on urination associated with suprapubic discomfort x2-3 weeks. +dysuria, frequency and urgency usually is incontinent, wears diapers. no n/v/d, fever or chills. no cough/respiratory distress or cp. no headache or dizziness. 09/10/19 14:49 - Physicial Exam PE: 09/10/19 14:33 Agree with the resident's HPI and PE as documented in the electronic medical record. NAD, well appearing, EOMI, PERRL, nl conjunctiva, anicteric; neck supple. lungs clear, irreg irreg, abdomen soft nontender. No rebound, no guarding. Back nontender. STARKS x4, no focal neuro deficits. No peripheral edema. normal color for ethnicity, WWP. uncircumcised, difficult to retract foreskin c/w phimosis, mild erythema at the meatus. no lesions, normal testicular lie, no scrotal or testicular edema or tenderness. no hernia. 09/10/19 14:50 09/10/19 17:49 - Medical Decision Making 09/10/19 14:33 Vital Signs Temp Pulse Resp BP Pulse Ox 97.9 F 61 20 156/72 97 09/10/19 13:44 09/10/19 13:44 09/10/19 13:44 09/10/19 13:44 09/10/19 13:44 vitals reviewed, wnl sx most consistent with balanitis, could be bacterial vs. fungal, does have phimosis which will predispose him to balanitis rx clomitrazole cream to the area twice a day x 7 days keflex x 7 day course to cover for UTI /cellulitis f/u urine culture testicular/scrotal sono with b/l hydroceles, left varicocele. mixed echogenicity lesion in left testis, unclear etiology no tenderness to the testicles or scrotum. no hernia palpated, low suspicion for herniation/obstruction abdomen is nontender, nonperitoneal. urology followup provided, referrals for his balantis/phimosis and nonspecific findings on testicular sono instructions for proper retraction of foreskin as best as possible and cleaning with soap and water, dry off and topical abx as above. oral systemic abx to cover for uti/early cellulitis given the irritation. DC stable condition, pt and family made aware of impression and plan, agreeable. 09/10/19 14:53 09/10/19 17:49 Discharge - Discharge Information Problems reviewed: Yes Clinical Impression/Diagnosis: Balanitis, Phimosis of penis UTI (urinary tract infection) Qualifiers: Urinary tract infection type: site unspecified Hematuria presence: with hematuria Qualified Code(s): N39.0 - Urinary tract infection, site not specified Condition: Stable Disposition: HOME - Admission No - Additional Discharge Information Prescriptions: Clotrimazole 1 applic TP BID #1 bottle Cephalexin [Keflex] 500 mg PO TID #21 capsule - Follow up/Referral Referrals: Tez Adams MD [Primary Care Provider] - Temo Alvarado MD [Staff Physician] - Da Ortega MD [Staff Physician] - Christian Mortensen MD [Staff Physician] - Shaq Schultz MD [Staff Physician] - - Patient Discharge Instructions Patient Printed Discharge Instructions: DI for Urinary Tract Infection (UTI), DI for Balanitis Additional Instructions: Additional Instructions: Please return to the emergency department with any new or worsening symptoms or concerns including fevers, worsening pain, worsening redness or the penis, penile discharge. Please follow up with one of the urologists that have been provided in your discharge paperwork next week. Please take Keflex 500mg three times a day for 7 days Please ensure adequate hygiene of the penis; wash with warm water at least twice a day Please retract the foreskin without causing pain and apply clotrimazole cream twice a day - Post Discharge Activity
[2019-09-10 14:53] LABS: EPI CELLS 23 /uL (0-25.1); HYALINE CASTS 1 /uL (0-3.1); URINE APPEARANCE CLEAR; URINE BACTERIA 20 /uL (0-1359); URINE BILIRUBIN NEGATIVE (NEGATIVE); URINE COLOR YELLOW; URINE GLUCOSE (UA) NEGATIVE (NEGATIVE); URINE KETONE NEGATIVE (NEGATIVE); URINE LEUK ESTERASE 2+ (NEGATIVE); URINE NITRITE NEGATIVE (NEGATIVE); URINE PROTEIN NEGATIVE (NEGATIVE); URINE RBC 53 /uL (0-23.9); URINE UROBILINOGEN 0.2 mg/dL (0.2-1.0); URINE WBC 121 /uL (0-25.8)
[2019-09-10 17:02] VITALS: BP 114/61; PULSE 90
[2019-09-10] MEDS ORDERED: CEPHALEXIN MONOHYDRATE 500 MG CAPSULE (UD) PO ONE (17:46)
[2019-09-10] MEDS ORDERED: CEPHALEXIN MONOHYDRATE 500 MG CAPSULE (UD) ONE (17:49)
== END 2019-09-10 17:59 | disposition home or self-care (01) ==
LOC: JER 13:42
DX: N39.0 Urinary tract infection, site not specified (principal); N48.1 Balanitis; N47.1 Phimosis
CPT/HCPCS: 76870-TC; 81003; 87086; 99284-25

== ENCOUNTER 2019-10-31 15:41 | Inpatient (IN) | payer OTHER ==
[2019-10-31 15:59] VITALS: BMI 28.5
--- NOTE | 2019-10-31 16:12 | PDOC ---
History of Present Illness - General Chief Complaint: Altered Mental Status Stated Complaint: AMS Time Seen by Provider: 10/31/19 16:11 History Source: Family Exam Limitations: Clinical Condition - History of Present Illness Initial Comments: 88M with hx/o Afib on Eliquis, CVA, HTN, HFrEF, and CAD presents to the ED with AMS. He was in the ED in September 2019 due to UTI and balaphanitis. His daughter is providing history and states that he had normal mental status yesterday and is normally AOx3, and now AOx1. The patient was uncooperative and would not provide any history. The patient's daughter states that he did not have any complaints. HPI PMH: as in HPI SH: see below Meds: Allergies: Tob/Etoh/Rec drugs: negx3 PCP: Dr. Tarango ROS: unable to assess due to AMS PE GENERAL: Awake, alert, not oriented HEAD: No signs of trauma, normocephalic, atraumatic EYES: PERRLA, EOMI, sclera anicteric, conjunctiva clear ENT: Auricles normal inspection, hearing grossly normal, nares patent, oropharynx clear without exudates. Moist mucosa NECK: Normal ROM, supple, no lymphadenopathy, JVD, or masses HEART: Regular rate and rhythm, normal S1 and S2, no murmurs, rubs or gallops, peripheral pulses normal and equal bilaterally. LUNGS: No distress, speaks full sentences, mild wheezes bilaterally ABDOMEN: Soft, nontender, normoactive bowel sounds. No guarding, no rebound. N o masses EXTREMITIES: Normal inspection, Normal range of motion, no edema. No clubbing or cyanosis. NEUROLOGICAL: CNII-XII grossly intact. Normal speech, normal gait, no focal sensorimotor deficits SKIN: Warm, Dry, normal turgor, no rashes or lesions noted Assessment and Plan Ritesh Quick, PGY1 Emergency Medicine Past History - Medical History Allergies/Adverse Reactions: Allergies Allergy/AdvReac Type Severity Reaction Status Date / Time No Known Allergies Allergy Verified 03/13/17 16:34 Home Medications: Ambulatory Orders Apixaban [Eliquis] 5 mg PO DAILY 03/13/17 Furosemide [Lasix -] 20 mg PO PRN PRN 03/13/17 Levothyroxine [Synthroid -] 0 mcg PO DAILY 03/13/17 Lisinopril [Zestril] 5 mg PO DAILY 03/13/17 Metoprolol Succinate 25 mg PO DAILY 03/13/17 Spironolactone [Aldactone] 25 mg PO DAILY 03/13/17 Lidocaine [Lidocaine Pain Relief] 1 each TP DAILY #4 adh..patch 11/22/18 Cephalexin [Keflex] 500 mg PO TID #21 capsule 09/10/19 Clotrimazole 1 applic TP BID #1 bottle 09/10/19 Anemia: No Asthma: No Cancer: Yes (THROAT) Cardiac Disorders: Yes (a.fib) CVA: Yes COPD: No CHF: No Dementia: No Diabetes: No GI Disorders: No Disorders: No HTN: Yes Hypercholesterolemia: Yes Liver Disease: No Seizures: No Thyroid Disease: Yes - Surgical History Abdominal Surgery: No Appendectomy: No Cardiac Surgery: Yes (card cath no stent) Cholecystectomy: No Lung Surgery: No Neurologic Surgery: No Orthopedic Surgery: Yes (L. Leg) - Immunization History Immunization Up to Date: Yes - Psycho-Social/Smoking History Smoking Status: No Smoking History: Former smoker Have you smoked in the past 12 months: No Number of Cigarettes Smoked Daily: 0 Information on smoking cessation initiated: No - Substance Abuse Hx (Audit-C & DAST Scrn) How often the patient has a drink containing alcohol: Never Score: In Men: 4 or > Positive; In Women: 3 or > Positive: 0 Screen Result (Pos requires Nsg. Audit-10AR): Negative In the last yr the pt used illegal drug/Rx for NonMed reason: No Score: Yes response is considered Positive: 0 Screen Result (Positive result requires Nsg. DAST-10): Negative *Physical Exam - Vital Signs Last Vital Signs Temp Pulse Resp BP Pulse Ox 99.4 F 75 20 157/105 H 92 L 10/31/19 15:54 10/31/19 15:54 10/31/19 15:54 10/31/19 15:54 10/31/19 15:54 ED Treatment Course - LABORATORY CBC & Chemistry Diagram: 10/31/19 18:00 10/31/19 18:00 Medical Decision Making - Medical Decision Making 88M with hx/o Afib on Eliquis, CVA, HTN, HFrEF, and CAD presents to the ED with AMS. He was in the ED in September 2019 due to UTI and balaphanitis. His daughter is providing history and states that he had normal mental status yesterday and is normally AOx3, and now AOx1. The patient was uncooperative and combative and was given 5mg Haldol + 1mg Ativan. UA had positive leuk esterase and bacteria. Given 1g Rocephin. CBC unremarkable. PT/INR elevated consistent with Eliquis use. CMP and TSH still pending. Sign out to night team 19:06. Discharge - Follow up/Referral Referrals: Tez Adams MD [Primary Care Provider] - - Patient Discharge Instructions - Post Discharge Activity
[2019-10-31] MEDS ORDERED: ALBUTEROL SO4 2.5/IPRATROPIUM 0.5 INH SOL 3 ML VIAL.NEB. NEB ONE ×2 (16:49→18:26)
[2019-10-31] MEDS ORDERED: HALOPERIDOL LACTATE 5 MG/ML IM ONE (17:20)
[2019-10-31] MEDS ORDERED: HALOPERIDOL LACTATE 5 MG/ML ONE (17:26)
[2019-10-31] MEDS ORDERED: LORazepam 2 MG/ML SDV VIAL ONE (17:27)
--- NOTE | 2019-10-31 17:40 | PDOC ---
Documentation entered by Danya Salgado SCRIBE, acting as scribe for Chip Garsia DO. Chip Garsia DO: This documentation has been prepared by the Damian betancourt Ana, SCRIBE, under my direction and personally reviewed by me in its entirety. I confirm that the documentation accurately reflects all work, treatment, procedures, and medical decision making performed by me. Attending Attestation - Resident Resident Name: Ritesh Quick - ED Attending Attestation I have performed the following: I have examined & evaluated the patient, The case was reviewed & discussed with the resident, I agree w/resident's findings & plan, Exceptions are as noted - HPI HPI: 10/31/19 17:16 Patient is an 88 year old male with a significant past medical history of Afib, CVA, hypertension, HFrEF, and CAD, who presents to the ED with altered mental status. Per the patient's daughter, patient had a normal mental status yesterday. HPI is limited to the patient being uncooperative and refusing to provide any information. Patient denies: any other related symptoms. Allergies: NKDA - Physicial Exam PE: 10/31/19 17:21 See Resident exam AOX1 (repsonds to name), Confabulates Subtle R CN VII palsy (family member states old) STARKS Agitated and combative 10/31/19 17:29 - Medical Decision Making 10/31/19 17:30 88 yo male w/ acute ams since 1pm, no new deficits on exam, no slurred speech, agitated combative, on elliquis for afib, tachycardic and normotensive. Family member states pt has had decreasing urine outpt and maybe pt has uti EKG EKG 17:1 Afib 125 normal axis intervals pvc, nstwi Will eval for ICH vs missed CVA vs metabolic encephalopathy vs atypical acs 10/31/19 17:39 Discharge - Discharge Information Problems reviewed: Yes Clinical Impression/Diagnosis: AMS (altered mental status), UTI (urinary tract infection) Condition: Guarded - Follow up/Referral - Patient Discharge Instructions - Post Discharge Activity
[2019-10-31] MEDS ORDERED: MIDAZOLAM HCL 2 MG/2 ML SINGLE DOSE VIAL IVPUSH ONE (17:54)
[2019-10-31] MEDS ORDERED: MIDAZOLAM HCL 2 MG/2 ML SINGLE DOSE VIAL ONE ×2 (17:54→20:56)
[2019-10-31 18:10] LABS: EPI CELLS >36 /uL (0-25.1); HYALINE CASTS 3 /uL (0-3.1); PH,URINE 6.5 (5.0-8.0); URINE APPEARANCE CLEAR; URINE BACTERIA 66 /uL (0-1359); URINE BILIRUBIN NEGATIVE (NEGATIVE); URINE COLOR YELLOW; URINE GLUCOSE (UA) NEGATIVE (NEGATIVE); URINE KETONE NEGATIVE (NEGATIVE); URINE LEUK ESTERASE 2+ (NEGATIVE); URINE NITRITE NEGATIVE (NEGATIVE); URINE PROTEIN 3+ (NEGATIVE); URINE RBC 49 /uL (0-23.9); URINE WBC 467 /uL (0-25.8)
[2019-10-31 18:22] LABS: BASO % 0.3 % (0-2.0); EOS % 0.3 % (0-4.5); HEMATOCRIT 39.1 % (35.4-49); LYMPH % 9.4 % (8-40); MCH 33.4 pg (25.7-33.7); MCHC 33.3 g/dl (32.0-35.9); MEAN CELL VOLUME 100.3 fl (80-96); MEAN PLT VOLUME 8.8 fl (7.5-11.1); MONO % 5.6 % (3.8-10.2); NEUT % 84.4 % (42.8-82.8); PLATELET COUNT 187 K/MM3 (134-434); RDW 12.8 % (11.9-15.9); WHITE BLOOD COUNT 7.5 K/mm3 (4.0-10.0)
[2019-10-31 18:44] LABS: INR 1.13 (0.83-1.09); PROTHROMBIN TIME (PATIENT) 13.3 SEC (9.7-13.0)
[2019-10-31 18:46] LABS: ACTIVATED PTT 30.5 SECONDS (25.2-36.5)
[2019-10-31] MEDS ORDERED: CEFTRIAXONE 1,000 MG in DEXTROSE 5%-WATER - 50 ML IVPB ONE (18:59)
[2019-10-31 19:07] LABS: ALBUMIN 3.6 g/dl (3.4-5.0); ALK PHOS 92 U/L (45-117); ANION GAP 7 MMOL/L (8-16); BILIRUBIN,TOTAL 0.7 mg/dL (0.2-1); BLOOD UREA NITROGEN 24.7 mg/dL (7-18); CALCIUM 9.1 mg/dL (8.5-10.1); CHLORIDE 102 mmol/L (98-107); CO2 29 mmol/L (21-32); CREATININE 1.3 mg/dL (0.55-1.3); GLUCOSE,RANDOM 176 mg/dL (74-106); MAGNESIUM 2.1 mg/dL (1.8-2.4); POTASSIUM 4.7 mmol/L (3.5-5.1); SGOT/AST 20 U/L (15-37); SGPT/ALT 23 U/L (13-61); SODIUM 138 mmol/L (136-145); TOT PROT 7.7 g/dl (6.4-8.2)
[2019-10-31] MEDS ORDERED: SODIUM CHLORIDE 250 ML IV STA (19:15)
[2019-10-31] MEDS ORDERED: CEFTRIAXONE 1 GM/50 ML BAG ONE (20:10)
[2019-10-31] MEDS ORDERED: MIDAZOLAM HCL 5 MG/1 ML Single Dose Vial IVPUSH ONE (20:55)
--- NOTE | 2019-10-31 21:45 | PDOC ---
*Physical Exam - Vital Signs Last Vital Signs Temp Pulse Resp BP Pulse Ox 98.1 F 75 20 114/72 98 10/31/19 19:08 10/31/19 19:08 10/31/19 19:08 10/31/19 19:08 10/31/19 19:08 ED Treatment Course - LABORATORY CBC & Chemistry Diagram: 10/31/19 18:00 10/31/19 18:00 - ADDITIONAL ORDERS Additional order review: Laboratory Results 10/31/19 10/31/19 10/31/19 18:00 18:00 18:00 PT with INR 13.30 H INR 1.13 H PTT (Actin FS) 30.5 Sodium 138 Potassium 4.7 Chloride 102 Carbon Dioxide 29 Anion Gap 7 L BUN 24.7 H Creatinine 1.3 Est GFR (CKD-EPI)AfAm 56.46 Est GFR (CKD-EPI)NonAf 48.72 Random Glucose 176 H Calcium 9.1 Magnesium 2.1 Total Bilirubin 0.7 AST 20 ALT 23 Alkaline Phosphatase 92 Creatine Kinase 81 Troponin I < 0.02 Total Protein 7.7 Albumin 3.6 TSH 1.38 D Urine Color Urine Appearance Urine pH Ur Specific [place] Urine Protein Urine Glucose (UA) Urine Ketones Urine Blood Urine Nitrite Urine Bilirubin Urine Urobilinogen Ur Leukocyte Esterase Urine WBC (Auto) Urine RBC (Auto) Urine Casts (Auto) U Epithel Cells (Auto) Urine Bacteria (Auto) Alcohol, Quantitative < 3 Blood Type A POSITIVE Antibody Screen Negative 10/31/19 15:30 PT with INR INR PTT (Actin FS) Sodium Potassium Chloride Carbon Dioxide Anion Gap BUN Creatinine Est GFR (CKD-EPI)AfAm Est GFR (CKD-EPI)NonAf Random Glucose Calcium Magnesium Total Bilirubin AST ALT Alkaline Phosphatase Creatine Kinase Troponin I Total Protein Albumin TSH Urine Color Yellow Urine Appearance Clear Urine pH 6.5 D Ur Specific [place] 1.020 Urine Protein 3+ H Urine Glucose (UA) Negative Urine Ketones Negative Urine Blood Trace Urine Nitrite Negative Urine Bilirubin Negative Urine Urobilinogen 1.0 Ur Leukocyte Esterase 2+ H Urine WBC (Auto) 467 Urine RBC (Auto) 49 Urine Casts (Auto) 3 U Epithel Cells (Auto) >36 Urine Bacteria (Auto) 66 Alcohol, Quantitative Blood Type Antibody Screen 10/31/19 18:00 RBC 3.90 L MCV 100.3 H MCHC 33.3 RDW 12.8 MPV 8.8 Neutrophils % 84.4 H D Lymphocytes % 9.4 D Monocytes % 5.6 Eosinophils % 0.3 D Basophils % 0.3 - Medications Given in the ED: ED Medications Discontinued Medications Generic Name Dose Route Start Last Admin Trade Name Archana PRN Reason Stop Dose Admin Albuterol/Ipratropium 1 amp 10/31/19 16:49 10/31/19 20:14 Duoneb - NEB 10/31/19 16:50 Not Given ONCE ONE Haloperidol 5 mg 10/31/19 17:20 10/31/19 17:35 Haldol Injection (Fast Acting) - IM 10/31/19 17:21 5 mg ONCE ONE Administration Ceftriaxone Sodium 1,000 mg/ 50 mls @ 100 mls/hr 10/31/19 18:59 10/31/19 20:14 Dextrose IVPB 10/31/19 19:28 100 mls/hr ONCE ONE Administration Sodium Chloride 250 mls @ 250 mls/hr 10/31/19 19:15 10/31/19 19:32 Normal Saline - IV 10/31/19 20:14 250 mls/hr ASDIR STA Administration Lorazepam 1 mg 10/31/19 17:20 10/31/19 17:35 Ativan Injection - IM 10/31/19 17:21 1 mg ONCE ONE Administration Midazolam HCl 3 mg 10/31/19 17:54 10/31/19 18:10 Versed - IVPUSH 10/31/19 17:55 3 mg ONCE ONE Administration Midazolam HCl 4 mg 10/31/19 20:55 10/31/19 21:00 Versed - IVPUSH 10/31/19 20:56 4 mg ONCE ONE Administration Medical Decision Making - Medical Decision Making 10/31/19 21:43 88M with hx/o Afib on Eliquis, CVA, HTN, HFrEF, and CAD presents to the ED with AMS. He was in the ED in September 2019 due to UTI and balaphanitis. His daughter is providing history and states that he had normal mental status yesterday and is normally AOx3, and now AOx1. Required bzd for agitiation UA with possible uti signed out to followup trop, chem, and admit 10/31/19 21:44 trop negative chem with normal bun/cr will proceed with MRI for unclear etiology of AMS MRI with no focal stroke admitted to Dr Celeste for UTI and AMS Discharge - Discharge Information Problems reviewed: Yes Clinical Impression/Diagnosis: AMS (altered mental status), UTI (urinary tract infection) Condition: Guarded - Follow up/Referral Referrals: Tez Adams MD [Primary Care Provider] - - Patient Discharge Instructions - Post Discharge Activity
[2019-10-31] MEDS: INSULIN SLIDING SCALE (NOVOLOG) 1 VIAL SQ SCH (23:44)
--- NOTE | 2019-11-01 03:31 | HP ---
CHIEF COMPLAINT: PCP: HISTORY OF PRESENT ILLNESS: 88M with hx/o Afib on Eliquis, CVA, HTN, HFrEF, and CAD presents to the ED with AMS. As per daughter, normally A&O x3 but then only oriented to name. In the ED, denies any complaint. Keeps insisting on standing and asking for wheelchair to leave. ER course was notable for: -afeb, HR 75, 92%, 98%(2L) -suprapubic tenderness -WBC 7.5 -MCV 100.3 -Serum EtOH <3 -UA: protein 3+, LE 2+, WBC 467, bact 66; epith >36 -UCX --pending -CTH: possible small chronic b/l cerebral(Left frontal, left occipital and Right parietal) infarcts. 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 -Ativan 1mg, Haldol 5mg -NS 250 -ceftriaxone 1g Recent Travel: denies PAST MEDICAL HISTORY: as above PAST SURGICAL HISTORY: -cardiac cath -ortho knee Social History: Smoking: previous tobacco Alcohol: denies Drugs: denies Allergies No Known Allergies Allergy (Verified 03/13/17 16:34) HOME MEDICATIONS: Home Medications Medication Instructions Recorded Apixaban [Eliquis] 5 mg PO DAILY 03/13/17 Furosemide [Lasix -] 20 mg PO PRN PRN 03/13/17 Levothyroxine [Synthroid -] 0 mcg PO DAILY 03/13/17 Lisinopril [Zestril] 5 mg PO DAILY 03/13/17 Metoprolol Succinate 25 mg PO DAILY 03/13/17 Spironolactone [Aldactone] 25 mg PO DAILY 03/13/17 Lidocaine [Lidocaine Pain Relief] 1 each TP DAILY #4 adh..patch 11/22/18 Cephalexin [Keflex] 500 mg PO TID #21 capsule 09/10/19 Clotrimazole 1 applic TP BID #1 bottle 09/10/19 REVIEW OF SYSTEMS CONSTITUTIONAL: Absent: fever, chills, diaphoresis, generalized weakness, malaise, loss of appetite, weight change HEENT: Absent: rhinorrhea, nasal congestion, throat pain, throat swelling, difficulty swallowing, mouth swelling, ear pain, eye pain, visual changes CARDIOVASCULAR: Absent: chest pain, syncope, palpitations, irregular heart rate, lightheadedness, peripheral edema RESPIRATORY: Absent: cough, shortness of breath, dyspnea with exertion, orthopnea, wheezing, stridor, hemoptysis GASTROINTESTINAL: Absent: abdominal pain, abdominal distension, nausea, vomiting, diarrhea, constipation, melena, hematochezia GENITOURINARY: Absent: dysuria, frequency, urgency, hesitancy, hematuria, flank pain, genital pain MUSCULOSKELETAL: Absent: myalgia, arthralgia, joint swelling, back pain, neck pain SKIN: Absent: rash, itching, pallor HEMATOLOGIC/IMMUNOLOGIC: Absent: easy bleeding, easy bruising, lymphadenopathy, frequent infections ENDOCRINE: Absent: unexplained weight gain, unexplained weight loss, heat intolerance, cold intolerance NEUROLOGIC: Absent: headache, focal weakness or paresthesias, dizziness, unsteady gait, seizure, mental status changes, bladder or bowel incontinence PSYCHIATRIC: Absent: anxiety, depression, suicidal or homicidal ideation, hallucinations. PHYSICAL EXAMINATION Vital Signs - 24 hr 10/31/19 10/31/19 10/31/19 15:54 19:08 19:10 Temperature 99.4 F 98.1 F Pulse Rate 75 Pulse Rate [ 75 Apical] Respiratory 20 20 Rate Blood Pressure 157/105 H Blood Pressure 114/72 [Right Arm] O2 Sat by Pulse 92 L 98 97 Oximetry (%) 10/31/19 11/01/19 11/01/19 21:40 01:56 02:26 Temperature 97.7 F Pulse Rate 89 Pulse Rate [ 97 H Apical] Respiratory 18 20 Rate Blood Pressure 160/82 Blood Pressure 141/100 [Right Arm] O2 Sat by Pulse 97 97 97 Oximetry (%) GENERAL: Oriented to name. HEAD: NC/AT EYES: sclera anicteric, conjunctiva clear. EARS, NOSE, THROAT: Moist mucous membranes. NECK: Normal range of motion, supple without lymphadenopathy, JVD, or masses. LUNGS: Breath sounds equal, clear to auscultation bilaterally. No wheezes, and no crackles. No accessory muscle use. HEART: irregular rhythm, HR up to 110s. Normal S1 and S2 without murmur, rub or gallop. ABDOMEN: Soft, mild suprapubic tenderness. No guarding, no rebound MUSCULOSKELETAL: Normal range of motion at all joints. No bony deformities or tenderness. No CVA tenderness. UPPER EXTREMITIES: 2+ pulses, warm, well-perfused. No cyanosis. No clubbing. No peripheral edema. LOWER EXTREMITIES: 2+ pulses, warm, well-perfused. No calf tenderness. No peripheral edema. Knee sp surgical scar NEUROLOGICAL: Cranial nerves II-XII intact. Normal speech. Sensation intact throughout. Following comands PSYCHIATRIC: Agitated SKIN: Warm, dry, normal turgor, no rashes or lesions noted, normal capillary refill. Laboratory Results - last 24 hr 10/31/19 10/31/19 10/31/19 15:30 18:00 18:00 WBC 7.5 RBC 3.90 L Hgb 13.0 Hct 39.1 MCV 100.3 H MCH 33.4 MCHC 33.3 RDW 12.8 Plt Count 187 MPV 8.8 Absolute Neuts (auto) 6.3 Neutrophils % 84.4 H D Lymphocytes % 9.4 D Monocytes % 5.6 Eosinophils % 0.3 D Basophils % 0.3 Nucleated RBC % 0 PT with INR INR PTT (Actin FS) Sodium 138 Potassium 4.7 Chloride 102 Carbon Dioxide 29 Anion Gap 7 L BUN 24.7 H Creatinine 1.3 Est GFR (CKD-EPI)AfAm 56.46 Est GFR (CKD-EPI)NonAf 48.72 POC Glucometer Random Glucose 176 H Lactic Acid Calcium 9.1 Magnesium 2.1 Total Bilirubin 0.7 AST 20 ALT 23 Alkaline Phosphatase 92 Creatine Kinase 81 Troponin I < 0.02 Total Protein 7.7 Albumin 3.6 TSH 1.38 D Urine Color Yellow Urine Appearance Clear Urine pH 6.5 D Ur Specific [place] 1.020 Urine Protein 3+ H Urine Glucose (UA) Negative Urine Ketones Negative Urine Blood Trace Urine Nitrite Negative Urine Bilirubin Negative Urine Urobilinogen 1.0 Ur Leukocyte Esterase 2+ H Urine WBC (Auto) 467 Urine RBC (Auto) 49 Urine Casts (Auto) 3 U Epithel Cells (Auto) >36 Urine Bacteria (Auto) 66 Alcohol, Quantitative < 3 Blood Type Antibody Screen 10/31/19 10/31/19 10/31/19 18:00 18:00 23:43 WBC RBC Hgb Hct MCV MCH MCHC RDW Plt Count MPV Absolute Neuts (auto) Neutrophils % Lymphocytes % Monocytes % Eosinophils % Basophils % Nucleated RBC % PT with INR 13.30 H INR 1.13 H PTT (Actin FS) 30.5 Sodium Potassium Chloride Carbon Dioxide Anion Gap BUN Creatinine Est GFR (CKD-EPI)AfAm Est GFR (CKD-EPI)NonAf POC Glucometer 124 Random Glucose Lactic Acid Calcium Magnesium Total Bilirubin AST ALT Alkaline Phosphatase Creatine Kinase Troponin I Total Protein Albumin TSH Urine Color Urine Appearance Urine pH Ur Specific [place] Urine Protein Urine Glucose (UA) Urine Ketones Urine Blood Urine Nitrite Urine Bilirubin Urine Urobilinogen Ur Leukocyte Esterase Urine WBC (Auto) Urine RBC (Auto) Urine Casts (Auto) U Epithel Cells (Auto) Urine Bacteria (Auto) Alcohol, Quantitative Blood Type A POSITIVE Antibody Screen Negative 11/01/19 00:15 WBC RBC Hgb Hct MCV MCH MCHC RDW Plt Count MPV Absolute Neuts (auto) Neutrophils % Lymphocytes % Monocytes % Eosinophils % Basophils % Nucleated RBC % PT with INR INR PTT (Actin FS) Sodium Potassium Chloride Carbon Dioxide Anion Gap BUN Creatinine Est GFR (CKD-EPI)AfAm Est GFR (CKD-EPI)NonAf POC Glucometer Random Glucose Lactic Acid 1.0 Calcium Magnesium Total Bilirubin AST ALT Alkaline Phosphatase Creatine Kinase Troponin I Total Protein Albumin TSH Urine Color Urine Appearance Urine pH Ur Specific [place] Urine Protein Urine Glucose (UA) Urine Ketones Urine Blood Urine Nitrite Urine Bilirubin Urine Urobilinogen Ur Leukocyte Esterase Urine WBC (Auto) Urine RBC (Auto) Urine Casts (Auto) U Epithel Cells (Auto) Urine Bacteria (Auto) Alcohol, Quantitative Blood Type Antibody Screen ASSESSMENT/PLAN: 88M with hx/o Afib on Eliquis, CVA, HTN, HFrEF, and CAD presents to the ED with AMS. As per daughter, normally A&O x3 but then only oriented to name. In the ED, denies any complaint. Physical notable for mild suprapubic pain. Labs notable for UA(contaminated with muliple epithilelial cells). Admitted for AMS, possibly 2/2 to UTI #acute encephalopathy --possibly 2/2 UTI > CTH: possible small chronic b/l cerebral(Left frontal, left occipital and Right parietal) infarcts. 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 RA is mod-severely dilated. Moderate TR. RVSP 46mmHg - cw home metoprolol and spironolactone - unknown home lasix dosing FEN - sodiium-controlled diet - NS @83 DVT PPX - eliquis Family Medical History Family History: Unable to Obtain Visit type - Medication Review Med list reviewed for High Risk Meds patients 65 and older: No - Emergency Visit Emergency Visit: Yes ED Registration Date: 10/31/19 Care time: The patient presented to the Emergency Department on the above date and was hospitalized for further evaluation of their emergent condition. - New Patient This patient is new to me today: Yes Date on this admission: 11/01/19 - Critical Care Critical Care patient: No ATTENDING PHYSICIAN STATEMENT I saw and evaluated the patient. I reviewed the resident's note and discussed the case with the resident. I agree with the resident's findings and plan as documented. SUBJECTIVE: OBJECTIVE: ASSESSMENT AND PLAN:
--- NOTE | 2019-11-01 04:55 | PN ---
Teaching Attending Note Name of Resident: Mickey Blankenship ATTENDING PHYSICIAN STATEMENT I saw and evaluated the patient. I reviewed the resident's note and discussed the case with the resident. I agree with the resident's findings and plan as documented. SUBJECTIVE: 88 y/o M with PMH of Afib, CVA, hypertension, HFrEF, and CAD presented with AMS x 1 day. Patient is very poor historian and delirious during my evaluation and unable to provide any history. Not cooperative with history and physical exam Denies chest pain, SOB, nuasea, vomiting, fever, abdominal pain. OBJECTIVE: Last Vital Signs Temp Pulse Resp BP Pulse Ox 97.7 F 89 20 160/82 97 11/01/19 01:56 11/01/19 01:56 11/01/19 01:56 11/01/19 01:56 11/01/19 02:26 GENERAL: not in acutye distress HEAD: No signs of trauma, normocephalic, atraumatic EYES: PERRLA, EOMI, sclera anicteric, conjunctiva clear ENT: Auricles normal inspection, hearing grossly normal, nares patent, oropharynx clear without exudates. Moist mucosa NECK: Normal ROM, supple, no lymphadenopathy, JVD, or masses HEART: Regular rate and rhythm, normal S1 and S2, LUNGS: No distress, speaks full sentences, b/l clear ABDOMEN: Soft, nontender, normoactive bowel sounds. No guarding, no rebound. No masses EXTREMITIES: Normal inspection, Normal range of motion, [peripheral pulses palpable,no edema NEUROLOGICAL: A&o x1 9( person ) no focal sensorimotor deficits SKIN: Warm, Dry, normal turgor, no rashes or lesions noted ASSESSMENT AND PLAN: Acute encephalopathy - metabolic due to UTI Dehydration HTN- uncontrolled Hx of Afib, CVA, hypertension, HFrEF, and CAD Admit to floor gentle hydration urine culture MRA was negative IV ceftrixone 2 gram PT/ rehab resume home meds DVt ppx
[2019-11-01] MEDS ORDERED: SODIUM CHLORIDE 1,000 ML IV SCH (06:00)
[2019-11-01] MEDS: INSULIN SLIDING SCALE (NOVOLOG) 1 VIAL SQ SCH ×4 (06:27→21:47)
[2019-11-01 08:15] LABS: CALCIUM 8.9 mg/dL (8.5-10.1); MAGNESIUM 2.1 mg/dL (1.8-2.4); PHOSPHOROUS 2.5 mg/dL (2.5-4.9); POTASSIUM 4.2 mmol/L (3.5-5.1)
[2019-11-01 08:37] LABS: HEMATOCRIT 39.8 % (35.4-49); HEMOGLOBIN 13.1 GM/dL (11.7-16.9); MEAN CELL VOLUME 100.3 fl (80-96); MEAN PLT VOLUME 8.9 fl (7.5-11.1); PLATELET COUNT 172 K/MM3 (134-434); RBC 3.97 M/mm3 (4.00-5.60); RDW 12.8 % (11.9-15.9); WHITE BLOOD COUNT 5.6 K/mm3 (4.0-10.0)
[2019-11-01] MEDS ORDERED: DEXTROSE 5%-WATER 100 ML IVPB ONE (09:05)
[2019-11-01] MEDS: APIXABAN 5 MG TABLET PO SCH ×2 (09:10→21:53)
[2019-11-01] MEDS: SPIRONOLACTONE 25 MG TABLET PO SCH (09:10)
[2019-11-01] MEDS: ASPIRIN 81 MG CHEWABLE TABLETS PO SCH (09:10)
[2019-11-01] MEDS: metoPROLOL SUCCINATE 25 MG TAB.SR.24H (FP) PO SCH (09:10)
[2019-11-01] MEDS ORDERED: DEXTROSE 5%-WATER - 50 ML IVPB ONE ×2 (09:41→09:48)
[2019-11-01] MEDS ORDERED: cefTRIAXone SODIUM 1 GM VIAL ONE (09:48)
[2019-11-01] MEDS ORDERED: ENOXAPARIN NA (PORCINE) 40 MG/0.4 ML DISP.SYRIN SQ SCH (10:00)
[2019-11-01] MEDS ORDERED: CEFTRIAXONE 2 GM in DEXTROSE 5%-WATER 100 ML IVPB SCH (10:00)
[2019-11-01] MEDS ORDERED: CEFTRIAXONE 1 GM in DEXTROSE 5%-WATER - 50 ML IVPB SCH (10:00)
[2019-11-01] MEDS: CEFTRIAXONE 1 GM in DEXTROSE 5%-WATER - 50 ML IVPB SCH (10:03)
--- NOTE | 2019-11-01 10:17 | EKG ---
Test Reason : Blood Pressure : / mmHG Vent. Rate : 125 BPM Atrial Rate : 119 BPM P-R Int : 000 ms QRS Dur : 106 ms QT Int : 314 ms P-R-T Axes : 000 009 129 degrees QTc Int : 453 ms ATRIAL FIBRILLATION WITH RAPID VENTRICULAR RESPONSE WITH PREMATURE VENTRICULAR OR ABERRANTLY CONDUCTED COMPLEXES CANNOT RULE OUT ANTERIOR INFARCT , AGE UNDETERMINED ABNORMAL ECG WHEN COMPARED WITH ECG OF 06-JAN-2019 14:05, NO SIGNIFICANT CHANGE WAS FOUND Confirmed by MD Melecio, Levi ([id number]) on 11/01/2019 10:17:22 AM Referred By: Confirmed By:Levi Majano MD
--- NOTE | 2019-11-01 14:44 | PN ---
Physical Exam: SUBJECTIVE: Patient seen and examined. Discussed with Daughter, Pt. uses [facility]. Pt. had been using his nebulizer TWICE per day every other day at home for the last month. Pt. still confused this AM but denies any pain. Pt. endorses some shortness of breath when lying flat. OBJECTIVE: Vital Signs Period Temp Pulse Resp BP Sys/Yañez Pulse Ox Last 24 Hr 97.5 F-99.4 F 75-102 18-20 114-165/60-105 92-98 GENERAL: The patient is awake and alert unable to answer location or date correctly, looked at wrist to remember name, in no acute distress. HEAD: Normal with no signs of trauma. EYES: Sclera anicteric, conjunctiva clear. ENT: Dry mucous membranes. LUNGS: Breath sounds equal, clear to auscultation bilaterally anteriorly, no wheezes, no crackles, no accessory muscle use. HEART: Regular rate and rhythm, S1, S2 without murmur ABDOMEN: Soft, obese, nontender, nondistended but protuberant, dull to percussion with fluid wave, normoactive bowel sounds, no guarding, no rebound EXTREMITIES: 2+ dorsal pedal pulses , warm, well-perfused NEUROLOGICAL: Normal speech, gait not observed. PSYCH: Normal mood, normal affect. SKIN: Warm, dry, normal turgor, no rashes or lesions noted Laboratory Results - last 24 hr 10/31/19 10/31/19 10/31/19 15:30 18:00 18:00 WBC 7.5 RBC 3.90 L Hgb 13.0 Hct 39.1 MCV 100.3 H MCH 33.4 MCHC 33.3 RDW 12.8 Plt Count 187 MPV 8.8 Absolute Neuts (auto) 6.3 Neutrophils % 84.4 H D Lymphocytes % 9.4 D Monocytes % 5.6 Eosinophils % 0.3 D Basophils % 0.3 Nucleated RBC % 0 PT with INR INR PTT (Actin FS) Sodium 138 Potassium 4.7 Chloride 102 Carbon Dioxide 29 Anion Gap 7 L BUN 24.7 H Creatinine 1.3 Est GFR (CKD-EPI)AfAm 56.46 Est GFR (CKD-EPI)NonAf 48.72 POC Glucometer Random Glucose 176 H Hemoglobin A1c % Lactic Acid Calcium 9.1 Phosphorus Magnesium 2.1 Total Bilirubin 0.7 AST 20 ALT 23 Alkaline Phosphatase 92 Creatine Kinase 81 Troponin I < 0.02 Total Protein 7.7 Albumin 3.6 Triglycerides Cholesterol Total LDL Cholesterol HDL Cholesterol Vitamin B12 Serum Folate TSH 1.38 D Urine Color Yellow Urine Appearance Clear Urine pH 6.5 D Ur Specific [place] 1.020 Urine Protein 3+ H Urine Glucose (UA) Negative Urine Ketones Negative Urine Blood Trace Urine Nitrite Negative Urine Bilirubin Negative Urine Urobilinogen 1.0 Ur Leukocyte Esterase 2+ H Urine WBC (Auto) 467 Urine RBC (Auto) 49 Urine Casts (Auto) 3 U Epithel Cells (Auto) >36 Urine Bacteria (Auto) 66 Alcohol, Quantitative < 3 Syphilis Serology Blood Type Antibody Screen 10/31/19 10/31/19 10/31/19 18:00 18:00 23:43 WBC RBC Hgb Hct MCV MCH MCHC RDW Plt Count MPV Absolute Neuts (auto) Neutrophils % Lymphocytes % Monocytes % Eosinophils % Basophils % Nucleated RBC % PT with INR 13.30 H INR 1.13 H PTT (Actin FS) 30.5 Sodium Potassium Chloride Carbon Dioxide Anion Gap BUN Creatinine Est GFR (CKD-EPI)AfAm Est GFR (CKD-EPI)NonAf POC Glucometer 124 Random Glucose Hemoglobin A1c % Lactic Acid Calcium Phosphorus Magnesium Total Bilirubin AST ALT Alkaline Phosphatase Creatine Kinase Troponin I Total Protein Albumin Triglycerides Cholesterol Total LDL Cholesterol HDL Cholesterol Vitamin B12 Serum Folate TSH Urine Color Urine Appearance Urine pH Ur Specific [place] Urine Protein Urine Glucose (UA) Urine Ketones Urine Blood Urine Nitrite Urine Bilirubin Urine Urobilinogen Ur Leukocyte Esterase Urine WBC (Auto) Urine RBC (Auto) Urine Casts (Auto) U Epithel Cells (Auto) Urine Bacteria (Auto) Alcohol, Quantitative Syphilis Serology Blood Type A POSITIVE Antibody Screen Negative 11/01/19 11/01/19 11/01/19 00:15 07:02 07:02 WBC 5.6 RBC 3.97 L Hgb 13.1 Hct 39.8 MCV 100.3 H MCH 33.0 MCHC 33.0 RDW 12.8 Plt Count 172 MPV 8.9 Absolute Neuts (auto) Neutrophils % Lymphocytes % Monocytes % Eosinophils % Basophils % Nucleated RBC % PT with INR INR PTT (Actin FS) Sodium 140 Potassium 4.2 Chloride 106 Carbon Dioxide 27 Anion Gap 7 L BUN 19.0 H Creatinine 1.0 Est GFR (CKD-EPI)AfAm 77.54 Est GFR (CKD-EPI)NonAf 66.90 POC Glucometer Random Glucose 125 H Hemoglobin A1c % Lactic Acid 1.0 Calcium 8.9 Phosphorus 2.5 Magnesium 2.1 Total Bilirubin AST ALT Alkaline Phosphatase Creatine Kinase Troponin I Total Protein Albumin Triglycerides Cholesterol Total LDL Cholesterol HDL Cholesterol Vitamin B12 Serum Folate TSH 2.81 D Urine Color Urine Appearance Urine pH Ur Specific [place] Urine Protein Urine Glucose (UA) Urine Ketones Urine Blood Urine Nitrite Urine Bilirubin Urine Urobilinogen Ur Leukocyte Esterase Urine WBC (Auto) Urine RBC (Auto) Urine Casts (Auto) U Epithel Cells (Auto) Urine Bacteria (Auto) Alcohol, Quantitative Syphilis Serology Blood Type Antibody Screen 11/01/19 11/01/19 11/01/19 11:20 11:20 11:20 WBC RBC Hgb Hct MCV MCH MCHC RDW Plt Count MPV Absolute Neuts (auto) Neutrophils % Lymphocytes % Monocytes % Eosinophils % Basophils % Nucleated RBC % PT with INR INR PTT (Actin FS) Sodium Potassium Chloride Carbon Dioxide Anion Gap BUN Creatinine Est GFR (CKD-EPI)AfAm Est GFR (CKD-EPI)NonAf POC Glucometer Random Glucose Hemoglobin A1c % 6.4 H Lactic Acid Calcium Phosphorus Magnesium Total Bilirubin AST ALT Alkaline Phosphatase Creatine Kinase Troponin I Total Protein Albumin Triglycerides 76 Cholesterol 139 Total LDL Cholesterol 80 HDL Cholesterol 48 Vitamin B12 631 Serum Folate 16 TSH 2.12 D Urine Color Urine Appearance Urine pH Ur Specific [place] Urine Protein Urine Glucose (UA) Urine Ketones Urine Blood Urine Nitrite Urine Bilirubin Urine Urobilinogen Ur Leukocyte Esterase Urine WBC (Auto) Urine RBC (Auto) Urine Casts (Auto) U Epithel Cells (Auto) Urine Bacteria (Auto) Alcohol, Quantitative Syphilis Serology Non-reactive Blood Type Antibody Screen Active Medications Generic Name Dose Route Start Last Admin Trade Name Archana PRN Reason Stop Dose Admin Apixaban 5 mg 11/01/19 10:00 11/01/19 09:10 Eliquis - PO 5 mg BID NELSY Administration Aspirin 81 mg 11/01/19 10:00 11/01/19 09:10 Asa - PO 81 mg DAILY NELSY Administration Atorvastatin Calcium 40 mg 11/01/19 22:00 Lipitor - PO HS NELSY Sodium Chloride 1,000 mls @ 83 mls/hr 11/01/19 06:00 11/01/19 06:28 Normal Saline - IV 83 mls/hr ASDIR NELSY Administration Ceftriaxone Sodium 1 gm/ 50 mls @ 200 mls/hr 11/01/19 10:00 11/01/19 10:03 Dextrose IVPB 200 mls/hr DAILY NELSY Administration Insulin Aspart 1 vial 10/31/19 22:00 11/01/19 12:09 Novolog Vial Sliding Scale - SQ 2 unit ACHS NELSY Administration Protocol Metoprolol Succinate 25 mg 11/01/19 10:00 11/01/19 09:10 Toprol Xl - PO 25 mg DAILY NELSY Administration Spironolactone 25 mg 11/01/19 10:00 11/01/19 09:10 Aldactone - PO 25 mg DAILY NELSY Administration ASSESSMENT/PLAN: Pt. is an 88 y.o. M w/ PMHx. of Afib on Eliquis, Hx. of CVA, HTN, HLD, Hypothyroidism, HFrEF, and CAD presents to the ED with AMS. As per daughter, normally A&O x3 but then only oriented to name. In the ED, denies any complaint. Physical notable for mild suprapubic pain. Labs notable for UA(contaminated with multiple epithelial cells). Admitted for AMS, possibly 2/2 to UTI #Acute Metabolic encephalopathy --possibly 2/2 UTI -CTH: possible small chronic b/l cerebral (Left frontal, left occipital and Right parietal) infarcts. 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 If US shows ascites will perform paracentesis and consult GI #Hx. of CVA --not documented in chart - start ASA 81, c/w Pravastatin 10 #Chronic Afib - cw home eliquis and Metoprolol #HFrEF --not in exacerbation -Echo(11/18/16): mod-severed reduced LV systolic function LVEF 45.6%, mod global hypokinesis of the LV. RA is mod-severely dilated. Moderate TR. RVSP 46mmHg - c/w home metoprolol, spironolactone and Lasix #FEN - No IVF, encourage PO intake - monitor electrolyts and replete as needed - Sodium controlled diet DVT PPX - eliquis Visit type - Emergency Visit Emergency Visit: Yes ED Registration Date: 10/31/19 Care time: The patient presented to the Emergency Department on the above date and was hospitalized for further evaluation of their emergent condition. - New Patient This patient is new to me today: No - Critical Care Critical Care patient: No - Discharge Referral Referred to [id number] No - Medication Review Med list reviewed for High Risk Meds patients 65 and older: Yes ATTENDING PHYSICIAN STATEMENT I saw and evaluated the patient. I reviewed the resident's note and discussed the case with the resident. I agree with the resident's findings and plan as documented. SUBJECTIVE: OBJECTIVE: ASSESSMENT AND PLAN:
[2019-11-01] MEDS ORDERED: ALBUTEROL SO4 HFA INHALER IH PRN (17:33)
[2019-11-01] MEDS ORDERED: METOPROLOL TARTRATE 25 MG TABLET (FP) PO ONE (21:03)
[2019-11-01] MEDS: BUDESONIDE/FORMETEROL FUMARATE 80/4.5 mcg INHALER IH SCH (21:53)
[2019-11-01] MEDS: ATORVASTATIN CA 10 MG TABLET (FP) PO SCH (21:53)
[2019-11-01] MEDS ORDERED: PATIENT'S OWN MEDICATION (NON-FORMULARY) (Pravastatin Sodium [Pravastatin Sodium] 10 MG) PO SCH (22:00)
[2019-11-01] MEDS ORDERED: ATORVASTATIN CA 80 MG TABLET (FP) PO SCH (22:00)
[2019-11-02] MEDS: LEVOTHYROXINE NA 100 MCG TABLET (FP) PO SCH (06:08)
[2019-11-02] MEDS: INSULIN SLIDING SCALE (NOVOLOG) 1 VIAL SQ SCH ×4 (06:13→21:34)
[2019-11-02 07:59] LABS: BASO % 0.2 % (0-2.0); EOS % 0.7 % (0-4.5); HEMATOCRIT 43.4 % (35.4-49); HEMOGLOBIN 14.4 GM/dL (11.7-16.9); MCH 33.1 pg (25.7-33.7); MCHC 33.2 g/dl (32.0-35.9); MEAN CELL VOLUME 99.8 fl (80-96); MEAN PLT VOLUME 8.7 fl (7.5-11.1); NEUT % 80.1 % (42.8-82.8); PLATELET COUNT 226 K/MM3 (134-434); RBC 4.35 M/mm3 (4.00-5.60); RDW 12.8 % (11.9-15.9); WHITE BLOOD COUNT 8.9 K/mm3 (4.0-10.0)
[2019-11-02 08:30] LABS: ALBUMIN 3.6 g/dl (3.4-5.0); BILIRUBIN,TOTAL 1.3 mg/dL (0.2-1); CALCIUM 9.2 mg/dL (8.5-10.1); CREATININE 1.1 mg/dL (0.55-1.3); PHOSPHOROUS 2.9 mg/dL (2.5-4.9); POTASSIUM 4.6 mmol/L (3.5-5.1); TOT PROT 7.8 g/dl (6.4-8.2)
[2019-11-02] MEDS ORDERED: cefTRIAXone SODIUM 1 GM VIAL ONE (10:06)
[2019-11-02] MEDS ORDERED: DEXTROSE 5%-WATER - 50 ML IVPB ONE (10:06)
[2019-11-02] MEDS: CEFTRIAXONE 1 GM in DEXTROSE 5%-WATER - 50 ML IVPB SCH (10:09)
[2019-11-02] MEDS: APIXABAN 5 MG TABLET PO SCH ×2 (10:10→21:27)
[2019-11-02] MEDS: FUROSEMIDE 20 MG TABLET (FP) PO SCH (10:10)
[2019-11-02] MEDS: BUDESONIDE/FORMETEROL FUMARATE 80/4.5 mcg INHALER IH SCH ×2 (10:10→21:34)
[2019-11-02] MEDS: SPIRONOLACTONE 25 MG TABLET PO SCH (10:10)
[2019-11-02] MEDS: ASPIRIN 81 MG CHEWABLE TABLETS PO SCH (10:10)
[2019-11-02] MEDS: metoPROLOL SUCCINATE 25 MG TAB.SR.24H (FP) PO SCH (10:19)
--- NOTE | 2019-11-02 10:27 | EKG ---
Test Reason : Blood Pressure : / mmHG Vent. Rate : 092 BPM Atrial Rate : 111 BPM P-R Int : 000 ms QRS Dur : 102 ms QT Int : 370 ms P-R-T Axes : 000 034 087 degrees QTc Int : 457 ms ATRIAL FIBRILLATION WITH PREMATURE VENTRICULAR OR ABERRANTLY CONDUCTED COMPLEXES NONSPECIFIC T WAVE ABNORMALITY ABNORMAL ECG WHEN COMPARED WITH ECG OF 31-OCT-2019 17:17, NO SIGNIFICANT CHANGE WAS FOUND Confirmed by MD Melecio, Levi ([id number]) on 11/02/2019 10:26:55 AM Referred By: Confirmed By:Levi Majano MD
[2019-11-02] MEDS ORDERED: HALOPERIDOL LACTATE 5 MG/ML IM PRN (15:27)
[2019-11-02] MEDS: THIAMINE HCL 100 MG TABLET (FP) PO SCH (16:22)
--- NOTE | 2019-11-02 17:10 | PN ---
Physical Exam: SUBJECTIVE: Patient seen and examined. Pt. reportedly refused medications, pulled off monitor and walked to bathroom by home self. Pt. hd spikes of Afib to 150 over night associated with this increased activity. Will order Cardiology consult as per daughter's request. OBJECTIVE: Vital Signs Period Temp Pulse Resp BP Sys/Yañez Pulse Ox Last 24 Hr 97.7 F-98.8 F 85-126 18-20 124-168/78-118 94-95 GENERAL: The patient is awake and alert more confused than yesterday, in no acute distress. HEAD: Normal with no signs of trauma. EYES: Sclera anicteric, conjunctiva clear. ENT: Dry mucous membranes. LUNGS: Breath sounds equal, clear to auscultation bilaterally anteriorly, no wheezes, no crackles, no accessory muscle use. HEART: Regular rate and rhythm, S1, S2 without murmur ABDOMEN: Soft, obese, nontender, nondistended but protuberant, dull to percussion with fluid wave, normoactive bowel sounds, no guarding, no rebound EXTREMITIES: 2+ dorsal pedal pulses , warm, well-perfused NEUROLOGICAL: Normal speech, gait not observed. PSYCH: Normal mood, normal affect. SKIN: Warm, dry, normal turgor, no rashes or lesions noted Laboratory Results - last 24 hr 11/01/19 11/02/19 11/02/19 09:30 06:55 06:55 WBC 8.9 RBC 4.35 Hgb 14.4 Hct 43.4 MCV 99.8 H MCH 33.1 MCHC 33.2 RDW 12.8 Plt Count 226 D MPV 8.7 Absolute Neuts (auto) 7.1 Neutrophils % 80.1 Lymphocytes % 11.0 Monocytes % 8.0 Eosinophils % 0.7 D Basophils % 0.2 Nucleated RBC % 0 Sodium 139 Potassium 4.6 Chloride 103 Carbon Dioxide 28 Anion Gap 8 BUN 18.0 Creatinine 1.1 Est GFR (CKD-EPI)AfAm 69.10 Est GFR (CKD-EPI)NonAf 59.62 Random Glucose 159 H Calcium 9.2 Phosphorus 2.9 Magnesium 2.0 Total Bilirubin 1.3 H AST 23 ALT 21 Alkaline Phosphatase 98 Ammonia Total Protein 7.8 Albumin 3.6 COVID-19 (DESIRAE) Not detected 11/02/19 06:55 WBC RBC Hgb Hct MCV MCH MCHC RDW Plt Count MPV Absolute Neuts (auto) Neutrophils % Lymphocytes % Monocytes % Eosinophils % Basophils % Nucleated RBC % Sodium Potassium Chloride Carbon Dioxide Anion Gap BUN Creatinine Est GFR (CKD-EPI)AfAm Est GFR (CKD-EPI)NonAf Random Glucose Calcium Phosphorus Magnesium Total Bilirubin AST ALT Alkaline Phosphatase Ammonia 26.90 Total Protein Albumin COVID-19 (DESIRAE) Active Medications Generic Name Dose Route Start Last Admin Trade Name Freq PRN Reason Stop Dose Admin Albuterol Sulfate 2 puff 11/01/19 17:33 11/01/19 18:22 Ventolin Hfa Inhaler - IH 2 puff Q4H PRN Administration SHORT OF BREATH/WHEEZING Apixaban 5 mg 11/01/19 10:00 11/02/19 10:10 Eliquis - PO 5 mg BID NELSY Administration Aspirin 81 mg 11/01/19 10:00 11/02/19 10:10 Asa - PO 81 mg DAILY NELSY Administration Atorvastatin Calcium 10 mg 11/01/19 22:00 11/01/19 21:53 Lipitor - PO 10 mg HS NELSY Administration Budesonide/Formoterol Fumarate 2 puff 11/01/19 22:00 11/02/19 10:10 Symbicort 80/4.5mcg - IH 2 inh BID NELSY Administration Furosemide 20 mg 11/02/19 10:00 11/02/19 10:10 Lasix - PO 20 mg DAILY NELSY Administration Haloperidol 2.5 mg 11/02/19 15:27 Haldol Injection (Fast Acting) - IM HS PRN AGITATION Ceftriaxone Sodium 1 gm/ 50 mls @ 200 mls/hr 11/01/19 10:00 11/02/19 10:09 Dextrose IVPB 200 mls/hr DAILY NELSY Administration Insulin Aspart 1 vial 10/31/19 22:00 11/02/19 16:26 Novolog Vial Sliding Scale - SQ 2 unit ACHS NELSY Administration Protocol Levothyroxine Sodium 100 mcg 11/02/19 07:00 11/02/19 06:08 Synthroid - PO Not Given AM NELSY Metoprolol Succinate 50 mg 11/02/19 10:03 Toprol Xl - PO DAILY NELSY Spironolactone 25 mg 11/01/19 10:00 11/02/19 10:10 Aldactone - PO 25 mg DAILY NELSY Administration Thiamine HCl 100 mg 11/02/19 15:45 11/02/19 16:22 Vitamin B1 - PO 100 mg DAILY NELSY Administration ASSESSMENT/PLAN: Pt. is an 88 y.o. M w/ PMHx. of Afib on Eliquis, Hx. of CVA, HTN, HLD, Hypothyroidism, HFrEF, and CAD presents to the ED with AMS. As per daughter, normally A&O x3 but then only oriented to name. In the ED, denies any complaint. Physical notable for mild suprapubic pain. Labs notable for UA(contaminated with multiple epithelial cells). Admitted for AMS, possibly 2/2 to UTI #Acute Metabolic encephalopathy --possibly 2/2 UTI -CTH: possible small chronic b/l cerebral (Left frontal, left occipital and Right parietal) infarcts. Note is again made of a 2cm full-thickeness perforation of the cartilaginous nasal septum -MRI brain: no acute infarct -Serum EtOH <3 -UA: protein 3+, LE 2+, WBC 467, bact 66; epith >36 -UCX Negative to date -RPR Negative -TSH wnl -Ceftriaxone (Day 3) -Abd. US positive for multiple right renal cyss and gall stones without evidence of obstruction or cholecystitis. -NH3: 27 -PRN Haldol for agitation (QTc: 567) -Psych consult appreciated as Pt. now with reported visual hallucinations -Start and D/c with Thiamine 100mg daily #Hx. of CVA --not documented in chart - start ASA 81, c/w Pravastatin 10 #Chronic Afib - c/w home eliquis - Metoprolol increased to 50mg #HFrEF --not in exacerbation - Echo(11/18/16): mod-severed reduced LV systolic function LVEF 45.6%, mod global hypokinesis of the LV. RA is mod-severely dilated. Moderate TR. RVSP 46mmHg - c/w home metoprolol, spironolactone and Lasix #FEN - No IVF, encourage PO intake - monitor electrolyts and replete as needed - Dysphagia chopped diet as Pt. does not have dentures with him DVT PPX - eliquis5 mg BID Visit type - Emergency Visit Emergency Visit: Yes ED Registration Date: 10/31/19 Care time: The patient presented to the Emergency Department on the above date and was hospitalized for further evaluation of their emergent condition. - New Patient This patient is new to me today: No - Critical Care Critical Care patient: No - Discharge Referral Referred to [facility] Med [facility] No - Medication Review Med list reviewed for High Risk Meds patients 65 and older: Yes ATTENDING PHYSICIAN STATEMENT I saw and evaluated the patient. I reviewed the resident's note and discussed the case with the resident. I agree with the resident's findings and plan as documented. SUBJECTIVE: OBJECTIVE: ASSESSMENT AND PLAN:
[2019-11-02] MEDS ORDERED: diphenhydrAMINE HCL 25 MG CAPSULE (FP) PO PRN (19:26)
[2019-11-02] MEDS: ATORVASTATIN CA 10 MG TABLET (FP) PO SCH (21:27)
[2019-11-03] MEDS: INSULIN SLIDING SCALE (NOVOLOG) 1 VIAL SQ SCH ×4 (06:04→22:35)
[2019-11-03] MEDS: LEVOTHYROXINE NA 100 MCG TABLET (FP) PO SCH (06:05)
[2019-11-03] MEDS ORDERED: cefTRIAXone SODIUM 1 GM VIAL ONE (09:06)
[2019-11-03] MEDS ORDERED: DEXTROSE 5%-WATER - 50 ML IVPB ONE (09:07)
[2019-11-03] MEDS: CEFTRIAXONE 1 GM in DEXTROSE 5%-WATER - 50 ML IVPB SCH (10:27)
[2019-11-03] MEDS: FUROSEMIDE 20 MG TABLET (FP) PO SCH (10:27)
[2019-11-03] MEDS: APIXABAN 5 MG TABLET PO SCH ×2 (10:27→22:26)
[2019-11-03] MEDS: SPIRONOLACTONE 25 MG TABLET PO SCH (10:27)
[2019-11-03] MEDS: metoPROLOL SUCCINATE 25 MG TAB.SR.24H (FP) PO SCH (10:28)
[2019-11-03] MEDS: THIAMINE HCL 100 MG TABLET (FP) PO SCH (10:28)
[2019-11-03] MEDS: ASPIRIN 81 MG CHEWABLE TABLETS PO SCH (10:31)
[2019-11-03] MEDS: BUDESONIDE/FORMETEROL FUMARATE 80/4.5 mcg INHALER IH SCH ×2 (10:31→22:27)
--- NOTE | 2019-11-03 10:34 | CONSULT ---
Admitting History and Physical - Admission History of Present Illness: 88M with hx/o Afib on Eliquis, CVA, HTN, HFrEF, and CAD presents to the ED with AMS. As per daughter, normally A&O x3 but then only oriented to name. In the ED, denies any complaint. Physical notable for mild suprapubic pain. Labs notable for UA(contaminated with muliple epithilelial cells). Admitted for AMS, possibly 2/2 to UTI CTH: possible small chronic b/l cerebral(Left frontal, left occipital and Right parietal) infarcts. Note is again made of a 2cm full-thickness perforation of the cartilaginous nasal septum MRI brain: no acute infarct Selected Entries 11/01/19 11/01/19 11/02/19 09:51 14:08 13:04 Breakfast 100% NPO Diet Tolerated Well Well Fair Lunch 75% 25% Supper Temperature Pulse Rate Blood Pressure 11/02/19 11/03/19 11/03/19 23:00 02:00 06:00 Breakfast Diet Tolerated Well Lunch Supper 100% Temperature 98.1 F 98.7 F Pulse Rate 83 83 Blood Pressure 144/80 173/99 H 11/03/19 10:15 Breakfast Diet Tolerated Lunch Supper Temperature 97.6 F Pulse Rate 90 Blood Pressure 123/58 L Laboratory Tests 10/31/19 11/02/19 18:00 06:55 WBC 7.5 8.9 Reported to be very confused, hallucinating, speech inappropriate, but calm and cooperative, altaf vest and bed alarm remain in place known to me from 2017-Impression: 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 Denies dysphagia. Resistant to interview and po trials, stating "I'M FINE!!!!". Dysphonic.Intermittent throat clearing/cough. Pt would benefit from MBS to r/o stasis/aspiration, and to learn compensatory swallowing strategies as indicated.Additionally, pt would benefit from swallowing tx to learn exercises to maintain swallowing function, which often deteriorates with time after RT/with scarring and restriction of laryngeal/pharyngeal function. MBS 2017- WNL History Source: Medical Record Limitations to Obtaining History: Clinical Condition - Past Medical History Cardiovascular: Yes: CHF, HTN, UT, UT Musculoskeletal: Yes: Chronic low back pain Rheumatology: Yes: Gout ENT: Yes: Other (throat cancer) Endocrine: Yes: Hypothyroidism - Past Surgical History Past Surgical History: Yes: Hernia Repair - Smoking History Smoking history: Former smoker Have you smoked in the past 12 months: No Aproximately how many cigarettes per day: 0 - Alcohol/Substance Use Hx Alcohol Use: No History of Substance Use: reports: None - Social History ADL: Independent History of Recent Travel: No History - Admission Reason For Visit: URINARY TRACT INFECTION,ALTERED MENTAL STATUS - Diagnostics X-ray: Report Reviewed CT Scan: Report Reviewed MRI: Report Reviewed (Multiple chronic infarcts) Modified Barium Swallow: Report Reviewed (MBS 2017- WNL) Other: Other ( CTH: possible small chronic b/l cerebral(Left frontal, left occipital and Right parietal) infarcts. Note is again made of a 2cm full- thickeness perforation of the cartilaginous nasal septum MRI brain: no acute infarct) - General Mental Status: Awake and Alert, Able to Follow Commands, Confused Attention: Intact Ability to Follow Directions: Good Head/Neck Control: Good - Hearing Hearing: Impaired Hearing Aide: No With Patient: No Speech Evaluation - Communication Primary Language: YORUBA Oral Expression Ability: Yes: Mild Impairment - Speech Production Intelligibility: Yes: Mildly Impaired - Speech Characteristics Voice Loudness: Mildly Soft/Quiet Voice Pitch: Yes: Mildly High Voice Phonatory-based Quality: Yes: Hoarse, Dysphonia Speech Clarity: < 100% Nasal Resonance: Normal Articulation: Yes: Precise - Language/Auditory Comprehension Follows: Yes: 1 Stage Simple Commands Observation: Able to respond to yes/no queries: Yes, Yes/No Confusion: No, Comprehends Conversational Speech: Yes - Language/Verbal Expression Functional Communication Status: Yes: WNL - Swallow Evaluation/Bedside Assessment Current Nutritional Intake: Dysphagia Minced, Thin Liquids Oral Secretions: Yes: WFL Dentition: Yes: Edentulous Facial Symmetry at Rest: Symmetrical Facial Symmetry on Retraction: Symmetrical Against Resistance Opening: Normal Against Resistance Closing: Normal Pucker Lips: Normal Smile: Normal Lingual Movement: Normal, Symmetric Lingual Speed of Movement: Normal Lingual Movement Strgth Against Opposition: Normal Lingual Movement Characteristics: Normal Velopharyngeal Movement: Normal Laryngeal Elevation: WFL Laryngeal Movement: Able to Palpate Rate of Intake: WFL Bolus Size: WFL Labial Seal: WFL Chewing: WFL Oral Prep Time: WFL A-P Transit: WFL Pocketing: None Timing of Swallow: WFL Coughing/Throat Clear: No Change in Voice: No Recommendations - Speech Evaluation, Impression/Plan Impression: Dysphonia w h/o laryngeal CA/RT. Swallowing dys ground/thin liquids well with good appetite. Edentulous - Disposition Discharge to: To be Determined - Dysphagia Impressions/Plan Dysphagia Impressions: Minimal Impairment *Silent aspiration: cannot be R/O at bedside Dysphagia Treatment Plan: Elevate HOB during feed - Recommendations Diet Consistency: Dysphagia Minced Liquids: Thin Liquids Supplement: Ensure, Magic Cup, Ensure Pudding
--- NOTE | 2019-11-03 11:15 | CON.CARD ---
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 Pt remains confused, unsure why here. Per charts his fam said he was confused so brought to er. Being evaluated for infection now. pmhx/pshx: per hpi social hx: etoh abuse, former smoker fam hx; no cad or cardiomyopathy ros; n/a due to ams Current Medications Generic Name Dose Route Start Last Admin Trade Name Freq PRN Reason Stop Dose Admin Albuterol Sulfate 2 puff 11/01/19 17:33 11/01/19 18:22 Ventolin Hfa Inhaler - IH 2 puff Q4H PRN Administration SHORT OF BREATH/WHEEZING Apixaban 5 mg 11/01/19 10:00 11/03/19 10:27 Eliquis - PO 5 mg BID NELSY Administration Aspirin 81 mg 11/01/19 10:00 11/03/19 10:31 Asa - PO 81 mg DAILY NELSY Administration Atorvastatin Calcium 10 mg 11/01/19 22:00 11/02/19 21:27 Lipitor - PO 10 mg HS NELSY Administration Budesonide/Formoterol Fumarate 2 puff 11/01/19 22:00 11/03/19 10:31 Symbicort 80/4.5mcg - IH 2 inh BID NELSY Administration Diphenhydramine HCl 25 mg 11/02/19 19:26 11/02/19 21:27 Benadryl - PO 25 mg ONCE PRN Administration AGITATION Furosemide 20 mg 11/02/19 10:00 11/03/19 10:27 Lasix - PO 20 mg DAILY NELSY Administration Haloperidol 2.5 mg 11/02/19 15:27 Haldol Injection (Fast Acting) - IM HS PRN AGITATION Ceftriaxone Sodium 1 gm/ 50 mls @ 200 mls/hr 11/01/19 10:00 11/03/19 10:27 Dextrose IVPB 200 mls/hr DAILY NELSY Administration Insulin Aspart 1 vial 10/31/19 22:00 11/03/19 06:04 Novolog Vial Sliding Scale - SQ Not Given ACHS NELSY Protocol Levothyroxine Sodium 100 mcg 11/02/19 07:00 11/03/19 06:05 Synthroid - PO 100 mcg AM NELSY Administration Metoprolol Succinate 50 mg 11/02/19 10:03 11/03/19 10:28 Toprol Xl - PO 50 mg DAILY NELSY Administration Spironolactone 25 mg 11/01/19 10:00 11/03/19 10:27 Aldactone - PO 25 mg DAILY NELSY Administration Thiamine HCl 100 mg 11/02/19 15:45 11/03/19 10:28 Vitamin B1 - PO 100 mg DAILY NELSY Administration Home Medications Medication Instructions Recorded Apixaban [Eliquis] 5 mg PO DAILY 03/13/17 Lisinopril [Zestril] 5 mg PO DAILY 03/13/17 Metoprolol Succinate 25 mg PO DAILY 03/13/17 Spironolactone [Aldactone] 25 mg PO DAILY 03/13/17 Furosemide [Lasix] 20 mg PO DAILY 11/01/19 Ipratropium/Albuterol Sulfate 1 amp IH Q4H PRN 11/01/19 [Iprat-Albut 0.5-3(2.5) mg/3 ml] Levothyroxine [Synthroid -] 100 mcg PO DAILY 11/01/19 Pravastatin Sodium 10 mg PO HS 11/01/19 Vital Signs Period Temp Pulse Resp BP Sys/Yañez Pulse Ox Last 24 Hr 97.6 F-98.8 F 83-126 18-20 123-173/58-118 90-100 nad no jvd irreg s1s2 nomrg cta bl nl eff awake alert confused abd nd nt pos bs no jaundice diaphoresis pos dp pt no carotid bruits no le e/c/c Laboratory Last Values WBC 8.9 K/mm3 (4.0-10.0) 11/02/19 06:55 RBC 4.35 M/mm3 (4.00-5.60) 11/02/19 06:55 Hgb 14.4 GM/dL (11.7-16.9) 11/02/19 06:55 Hct 43.4 % (35.4-49) 11/02/19 06:55 MCV 99.8 fl (80-96) H 11/02/19 06:55 MCH 33.1 pg (25.7-33.7) 11/02/19 06:55 MCHC 33.2 g/dl (32.0-35.9) 11/02/19 06:55 RDW 12.8 % (11.9-15.9) 11/02/19 06:55 Plt Count 226 K/MM3 (134-434) D 11/02/19 06:55 MPV 8.7 fl (7.5-11.1) 11/02/19 06:55 Absolute Neuts (auto) 7.1 K/mm3 (1.5-8.0) 11/02/19 06:55 Neutrophils % 80.1 % (42.8-82.8) 11/02/19 06:55 Lymphocytes % 11.0 % (8-40) 11/02/19 06:55 Monocytes % 8.0 % (3.8-10.2) 11/02/19 06:55 Eosinophils % 0.7 % (0-4.5) D 11/02/19 06:55 Basophils % 0.2 % (0-2.0) 11/02/19 06:55 Nucleated RBC % 0 % (0-0) 11/02/19 06:55 PT with INR 13.30 SEC (9.7-13.0) H 10/31/19 18:00 INR 1.13 (0.83-1.09) H 10/31/19 18:00 PTT (Actin FS) 30.5 SECONDS (25.2-36.5) 10/31/19 18:00 Sodium 139 mmol/L (136-145) 11/02/19 06:55 Potassium 4.6 mmol/L (3.5-5.1) 11/02/19 06:55 Chloride 103 mmol/L (98-107) 11/02/19 06:55 Carbon Dioxide 28 mmol/L (21-32) 11/02/19 06:55 Anion Gap 8 MMOL/L (8-16) 11/02/19 06:55 BUN 18.0 mg/dL (7-18) 11/02/19 06:55 Creatinine 1.1 mg/dL (0.55-1.3) 11/02/19 06:55 Est GFR (CKD-EPI)AfAm 69.10 11/02/19 06:55 Est GFR (CKD-EPI)NonAf 59.62 11/02/19 06:55 POC Glucometer 124 UNITS (80-120) 10/31/19 23:43 Random Glucose 159 mg/dL (74-106) H 11/02/19 06:55 Hemoglobin A1c % 6.4 % (4.2-6.3) H 11/01/19 11:20 Lactic Acid 1.0 mmol/L (0.4-2.0) 11/01/19 00:15 Calcium 9.2 mg/dL (8.5-10.1) 11/02/19 06:55 Phosphorus 2.9 mg/dL (2.5-4.9) 11/02/19 06:55 Magnesium 2.0 mg/dL (1.8-2.4) 11/02/19 06:55 Total Bilirubin 1.3 mg/dL (0.2-1) H 11/02/19 06:55 AST 23 U/L (15-37) 11/02/19 06:55 ALT 21 U/L (13-61) 11/02/19 06:55 Alkaline Phosphatase 98 U/L (45-117) 11/02/19 06:55 Ammonia 26.90 umol/L (11-32) 11/02/19 06:55 Creatine Kinase 81 U/L (26-308) 10/31/19 18:00 Troponin I < 0.02 ng/ml (0.00-0.05) 10/31/19 18:00 Total Protein 7.8 g/dl (6.4-8.2) 11/02/19 06:55 Albumin 3.6 g/dl (3.4-5.0) 11/02/19 06:55 Triglycerides 76 mg/dL (0-150) 11/01/19 11:20 Cholesterol 139 mg/dL (50-200) 11/01/19 11:20 Total LDL Cholesterol 80 mg/dL (5-100) 11/01/19 11:20 HDL Cholesterol 48 mg/dL (40-60) 11/01/19 11:20 Vitamin B12 631 pg/ml (193-986) 11/01/19 11:20 Serum Folate 16 ng/mL (3.1-17.5) 11/01/19 11:20 TSH 2.12 uIU/ml (0.358-3.74) D 11/01/19 11:20 Urine Color Yellow 10/31/19 15:30 Urine Appearance Clear 10/31/19 15:30 Urine pH 6.5 (5.0-8.0) D 10/31/19 15:30 Ur Specific [place] 1.020 (1.010-1.035) 10/31/19 15:30 Urine Protein 3+ (NEGATIVE) H 10/31/19 15:30 Urine Glucose (UA) Negative (NEGATIVE) 10/31/19 15:30 Urine Ketones Negative (NEGATIVE) 10/31/19 15:30 Urine Blood Trace (NEGATIVE) 10/31/19 15:30 Urine Nitrite Negative (NEGATIVE) 10/31/19 15:30 Urine Bilirubin Negative (NEGATIVE) 10/31/19 15:30 Urine Urobilinogen 1.0 mg/dL (0.2-1.0) 10/31/19 15:30 Ur Leukocyte Esterase 2+ (NEGATIVE) H 10/31/19 15:30 Urine WBC (Auto) 467 /uL (0-25.8) 10/31/19 15:30 Urine RBC (Auto) 49 /uL (0-23.9) 10/31/19 15:30 Urine Casts (Auto) 3 /uL (0-3.1) 10/31/19 15:30 U Epithel Cells (Auto) >36 /uL (0-25.1) 10/31/19 15:30 Urine Bacteria (Auto) 66 /uL (0-1359) 10/31/19 15:30 Alcohol, Quantitative < 3 mg/dL (0.0-5.0) 10/31/19 18:00 Syphilis Serology Non-reactive (NONREACTIVE) 11/01/19 11:20 COVID-19 (DESIRAE) Not detected (Not Detected) 11/01/19 09:30 Blood Type A POSITIVE 10/31/19 18:00 Antibody Screen Negative 10/31/19 18:00 tele: afib, rate ok ekg: afib rate 120s. incomplete lbbb. non-specific t wave ab. no sig change prior Echo 10/2015: Mild global HK (more prominent HK at basal and mid milner) EF 45- 50%. Mild RV dil with mildly depressed sys function. Severe RAFAL. Mild , Mild AR. Borderline prolapse of anterior leaflet with moderate post directed MR. Moderate TR. Severe pHTN. Dilated IVC. (thought to be volume up at the time) Echo 11/2016: tds, mod-sev dec lvef, global hk, nl rv, mod rafal, mild-mod mr, mod tr, mild phtn, mild-mod ar, mild as, mild ao root dil Cath 03/2015 [facility]: LVEDP 9. EF 40%. 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 ams: -infection w/u in progress -psych eval pending non-obstructive cad: -no signs acs - not on ASA b/c has been on AC. 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
--- NOTE | 2019-11-03 14:28 | PN ---
Physical Exam: SUBJECTIVE: Patient seen and examined. Pt. denies any acute complaints. Pt. alert and oriented to name and location. Pt. awaiting placement to SNF. Will send COVID Swab. OBJECTIVE: Vital Signs Period Temp Pulse Resp BP Sys/Yañez Pulse Ox Last 24 Hr 97.6 F-98.7 F 83-90 18-20 118-173/58-99 90-100 GENERAL: The patient is awake and alert more confused than yesterday, in no acute distress. HEAD: Normal with no signs of trauma. EYES: Sclera anicteric, conjunctiva clear. ENT: Dry mucous membranes. LUNGS: Breath sounds equal, clear to auscultation bilaterally anteriorly, no wheezes, no crackles, no accessory muscle use. HEART: Regular rate and rhythm, S1, S2 without murmur ABDOMEN: Soft, obese, nontender, nondistended but protuberant, dull to percussion with fluid wave, normoactive bowel sounds, no guarding, no rebound EXTREMITIES: 2+ dorsal pedal pulses , warm, well-perfused NEUROLOGICAL: Normal speech, gait not observed. PSYCH: Normal mood, normal affect. SKIN: Warm, dry, normal turgor, no rashes or lesions noted Active Medications Generic Name Dose Route Start Last Admin Trade Name Freq PRN Reason Stop Dose Admin Albuterol Sulfate 2 puff 11/01/19 17:33 11/01/19 18:22 Ventolin Hfa Inhaler - IH 2 puff Q4H PRN Administration SHORT OF BREATH/WHEEZING Apixaban 5 mg 11/01/19 10:00 11/03/19 10:27 Eliquis - PO 5 mg BID NELSY Administration Aspirin 81 mg 11/01/19 10:00 11/03/19 10:31 Asa - PO 81 mg DAILY NELSY Administration Atorvastatin Calcium 10 mg 11/01/19 22:00 11/02/19 21:27 Lipitor - PO 10 mg HS NELSY Administration Budesonide/Formoterol Fumarate 2 puff 11/01/19 22:00 11/03/19 10:31 Symbicort 80/4.5mcg - IH 2 inh BID NELSY Administration Diphenhydramine HCl 25 mg 11/02/19 19:26 11/02/19 21:27 Benadryl - PO 25 mg ONCE PRN Administration AGITATION Furosemide 20 mg 11/02/19 10:00 11/03/19 10:27 Lasix - PO 20 mg DAILY NELSY Administration Haloperidol 2.5 mg 11/02/19 15:27 Haldol Injection (Fast Acting) - IM HS PRN AGITATION Ceftriaxone Sodium 1 gm/ 50 mls @ 200 mls/hr 11/01/19 10:00 11/03/19 10:27 Dextrose IVPB 200 mls/hr DAILY NELSY Administration Insulin Aspart 1 vial 10/31/19 22:00 11/03/19 12:12 Novolog Vial Sliding Scale - SQ Not Given ACHS [facility] Protocol Levothyroxine Sodium 100 mcg 11/02/19 07:00 11/03/19 06:05 Synthroid - PO 100 mcg AM NELSY Administration Metoprolol Succinate 50 mg 11/02/19 10:03 11/03/19 10:28 Toprol Xl - PO 50 mg DAILY NELSY Administration Spironolactone 25 mg 11/01/19 10:00 11/03/19 10:27 Aldactone - PO 25 mg DAILY NELSY Administration Thiamine HCl 100 mg 11/02/19 15:45 11/03/19 10:28 Vitamin B1 - PO 100 mg DAILY NELSY Administration ASSESSMENT/PLAN: Pt. is an 88 y.o. M w/ PMHx. of Afib on Eliquis, Hx. of CVA, HTN, HLD, Hypothyroidism, HFrEF, and CAD presents to the ED with AMS. As per daughter, normally A&O x3 but then only oriented to name. In the ED, denies any complaint. Physical notable for mild suprapubic pain. Labs notable for UA(contaminated with multiple epithelial cells). Admitted for AMS, possibly 2/2 to UTI #Acute Metabolic encephalopathy --possibly 2/2 UTI -CTH: possible small chronic b/l cerebral (Left frontal, left occipital and Right parietal) infarcts. 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 US positive for multiple right renal cyss and gall stones without evidence of obstruction or cholecystitis. -NH3: 27 -PRN Haldol for agitation (QTc: 567) -Psych consult appreciated as Pt. now with reported visual hallucinations -Start and D/c with Thiamine 100mg daily #Hx. of CVA --not documented in chart - start ASA 81, c/w Pravastatin 10 #Chronic Afib - c/w home eliquis - Metoprolol increased to 50mg - Cardiology consult appreciated #HFrEF --not in exacerbation - Echo(11/18/16): mod-severed reduced LV systolic function LVEF 45.6%, mod global hypokinesis of the LV. RA is mod-severely dilated. Moderate TR. RVSP 46mmHg - c/w home metoprolol, spironolactone and Lasix #FEN - No IVF, encourage PO intake - monitor electrolyts and replete as needed - Dysphagia chopped diet as Pt. does not have dentures with him, consulted speech and swallow--> recommends MBS--> f/u results DVT PPX - Eliquis 5 mg BID Visit type - Emergency Visit Emergency Visit: Yes ED Registration Date: 10/31/19 Care time: The patient presented to the Emergency Department on the above date and was hospitalized for further evaluation of their emergent condition. - New Patient This patient is new to me today: No - Critical Care Critical Care patient: No - Discharge Referral Referred to [facility] No - Medication Review Med list reviewed for High Risk Meds patients 65 and older: Yes ATTENDING PHYSICIAN STATEMENT I saw and evaluated the patient. I reviewed the resident's note and discussed the case with the resident. I agree with the resident's findings and plan as documented. SUBJECTIVE: OBJECTIVE: ASSESSMENT AND PLAN:
--- NOTE | 2019-11-03 16:51 | PN ---
Teaching Attending Note Name of Resident: Elliot Iniguez ATTENDING PHYSICIAN STATEMENT I saw and evaluated the patient. I reviewed the resident's note and discussed the case with the resident. I agree with the resident's findings and plan as documented. SUBJECTIVE: Patient seen and examined at bedside, admitted for confusion 2/2 UTI, now MS improved although stilll confused at times, may need SNF placement. VSS. OBJECTIVE: GENERAL: The patient is awake and alert, NAD, still confused HEAD: Normal with no signs of trauma. EYES: Sclera anicteric, conjunctiva clear. ENT: Dry mucous membranes. LUNGS: Breath sounds equal, clear to auscultation bilaterally anteriorly, no wheezes, no crackles, no accessory muscle use. HEART: Regular rate and rhythm, S1, S2 without murmur ABDOMEN: Soft, obese, nontender, distended, normoactive bowel sounds, no guarding, no rebound EXTREMITIES: 2+ dorsal pedal pulses , warm, well-perfused NEUROLOGICAL: Normal speech, gait not observed. PSYCH: slightly confused, calm SKIN: Warm, dry, normal turgor, no rashes or lesions noted Vital Signs (72 hours) 10/31/19 10/31/19 10/31/19 19:08 19:10 21:40 Temperature 98.1 F Pulse Rate Pulse Rate [ 75 97 H Apical] Respiratory 20 18 Rate Blood Pressure Blood Pressure 114/72 141/100 [Right Arm] O2 Sat by Pulse 98 97 97 Oximetry (%) 11/01/19 11/01/19 11/01/19 01:56 02:26 06:00 Temperature 97.7 F 97.5 F L Pulse Rate 89 94 H Pulse Rate [ Apical] Respiratory 20 20 Rate Blood Pressure 160/82 165/60 Blood Pressure [Right Arm] O2 Sat by Pulse 97 97 96 Oximetry (%) 11/01/19 11/01/19 11/01/19 08:39 09:00 14:08 Temperature 98.3 F 98.6 F Pulse Rate 102 H 80 Pulse Rate [ Apical] Respiratory 20 18 Rate Blood Pressure 131/97 123/65 Blood Pressure [Right Arm] O2 Sat by Pulse 97 97 Oximetry (%) 11/01/19 11/01/19 11/01/19 18:00 21:00 22:00 Temperature 98.3 F 98.3 F Pulse Rate 102 H 109 H Pulse Rate [ Apical] Respiratory 18 20 Rate Blood Pressure 158/88 148/92 Blood Pressure [Right Arm] O2 Sat by Pulse 95 95 95 Oximetry (%) 11/02/19 11/02/19 11/02/19 06:00 09:00 10:00 Temperature 98.3 F Pulse Rate 103 H Pulse Rate [ Apical] Respiratory 20 Rate Blood Pressure 143/108 H 166/109 H Blood Pressure [Right Arm] O2 Sat by Pulse 94 L 94 L Oximetry (%) 11/02/19 11/02/19 11/02/19 14:17 16:30 21:00 Temperature 98.8 F 97.7 F Pulse Rate 126 H 85 Pulse Rate [ Apical] Respiratory 20 20 Rate Blood Pressure 168/118 H 124/78 Blood Pressure [Right Arm] O2 Sat by Pulse 94 L 95 Oximetry (%) 11/02/19 11/03/19 11/03/19 22:00 02:00 06:00 Temperature 98.5 F 98.1 F 98.7 F Pulse Rate 88 83 83 Pulse Rate [ Apical] Respiratory 18 18 18 Rate Blood Pressure 139/83 144/80 173/99 H Blood Pressure [Right Arm] O2 Sat by Pulse 95 90 L 100 Oximetry (%) 11/03/19 11/03/19 11/03/19 09:00 10:15 14:00 Temperature 97.6 F 98.5 F Pulse Rate 90 83 Pulse Rate [ Apical] Respiratory 18 20 Rate Blood Pressure 123/58 L 118/58 L Blood Pressure [Right Arm] O2 Sat by Pulse 95 95 97 Oximetry (%) Microbiology 10/31/19 17:00 Urine - Urine - Catheterized Urine Culture - Preliminary Staphylococcus Coagulase Neg Home Medications Medication Instructions Recorded Apixaban [Eliquis] 5 mg PO DAILY 03/13/17 Lisinopril [Zestril] 5 mg PO DAILY 03/13/17 Metoprolol Succinate 25 mg PO DAILY 03/13/17 Spironolactone [Aldactone] 25 mg PO DAILY 03/13/17 Furosemide [Lasix] 20 mg PO DAILY 11/01/19 Ipratropium/Albuterol Sulfate 1 amp IH Q4H PRN 11/01/19 [Iprat-Albut 0.5-3(2.5) mg/3 ml] Levothyroxine [Synthroid -] 100 mcg PO DAILY 11/01/19 Pravastatin Sodium 10 mg PO HS 11/01/19 Current Medications Generic Name Dose Route Start Last Admin Trade Name Freq PRN Reason Stop Dose Admin Albuterol Sulfate 2 puff 11/01/19 17:33 11/01/19 18:22 Ventolin Hfa Inhaler - IH 2 puff Q4H PRN Administration SHORT OF BREATH/WHEEZING Apixaban 5 mg 11/01/19 10:00 11/03/19 10:27 Eliquis - PO 5 mg BID NELSY Administration Aspirin 81 mg 11/01/19 10:00 11/03/19 10:31 Asa - PO 81 mg DAILY NELSY Administration Atorvastatin Calcium 10 mg 11/01/19 22:00 11/02/19 21:27 Lipitor - PO 10 mg HS NELSY Administration Budesonide/Formoterol Fumarate 2 puff 11/01/19 22:00 11/03/19 10:31 Symbicort 80/4.5mcg - IH 2 inh BID NELSY Administration Diphenhydramine HCl 25 mg 11/02/19 19:26 11/02/19 21:27 Benadryl - PO 25 mg ONCE PRN Administration AGITATION Furosemide 20 mg 11/02/19 10:00 11/03/19 10:27 Lasix - PO 20 mg DAILY NELSY Administration Haloperidol 2.5 mg 11/02/19 15:27 Haldol Injection (Fast Acting) - IM HS PRN AGITATION Ceftriaxone Sodium 1 gm/ 50 mls @ 200 mls/hr 11/01/19 10:00 11/03/19 10:27 Dextrose IVPB 200 mls/hr DAILY NELSY Administration Insulin Aspart 1 vial 10/31/19 22:00 11/03/19 12:12 Novolog Vial Sliding Scale - SQ Not Given ACHS [facility] Protocol Levothyroxine Sodium 100 mcg 11/02/19 07:00 11/03/19 06:05 Synthroid - PO 100 mcg AM NELSY Administration Metoprolol Succinate 50 mg 11/02/19 10:03 11/03/19 10:28 Toprol Xl - PO 50 mg DAILY NELSY Administration Spironolactone 25 mg 11/01/19 10:00 11/03/19 10:27 Aldactone - PO 25 mg DAILY NELSY Administration Thiamine HCl 100 mg 11/02/19 15:45 11/03/19 10:28 Vitamin B1 - PO 100 mg DAILY NELSY Administration ASSESSMENT AND PLAN: 88 M UTI Delirium 2/2 UTI HTN HFrEF Afib on Eliquis Prior Etoh abuse Etoh induced dementia HLD Hypothyroidism COVId negative COPD Plan: Cont. Rocephin for UTI, gentle hydration d/t CHF Frequent re-orientation, try to avoid psychtropic meds, light therapy, watch s undowning Cont. HF meds DVT ppx: Eliquis
--- NOTE | 2019-11-03 16:56 | PN ---
Teaching Attending Note Name of Resident: Elliot Iniguez ATTENDING PHYSICIAN STATEMENT I saw and evaluated the patient. I reviewed the resident's note and discussed the case with the resident. I agree with the resident's findings and plan as documented. SUBJECTIVE: Patient seen and examined at bedside, MS much improved today, son at bedside, NAD, awaiting placement for SNF. VSS. OBJECTIVE: GENERAL: The patient is awake and alert, NAD, engaging in conversation, AAox1 HEAD: Normal with no signs of trauma. EYES: Sclera anicteric, conjunctiva clear. ENT: Dry mucous membranes. LUNGS: Breath sounds equal, clear to auscultation bilaterally anteriorly, no wheezes, no crackles, no accessory muscle use. HEART: Regular rate and rhythm, S1, S2 without murmur ABDOMEN: Soft, obese, nontender, distended, normoactive bowel sounds, no guarding, no rebound EXTREMITIES: 2+ dorsal pedal pulses , warm, well-perfused NEUROLOGICAL: Normal speech, gait not observed. PSYCH: slightly confused, calm SKIN: Warm, dry, normal turgor, no rashes or lesions noted Vital Signs (72 hours) 10/31/19 10/31/19 10/31/19 19:08 19:10 21:40 Temperature 98.1 F Pulse Rate Pulse Rate [ 75 97 H Apical] Respiratory 20 18 Rate Blood Pressure Blood Pressure 114/72 141/100 [Right Arm] O2 Sat by Pulse 98 97 97 Oximetry (%) 11/01/19 11/01/19 11/01/19 01:56 02:26 06:00 Temperature 97.7 F 97.5 F L Pulse Rate 89 94 H Pulse Rate [ Apical] Respiratory 20 20 Rate Blood Pressure 160/82 165/60 Blood Pressure [Right Arm] O2 Sat by Pulse 97 97 96 Oximetry (%) 11/01/19 11/01/19 11/01/19 08:39 09:00 14:08 Temperature 98.3 F 98.6 F Pulse Rate 102 H 80 Pulse Rate [ Apical] Respiratory 20 18 Rate Blood Pressure 131/97 123/65 Blood Pressure [Right Arm] O2 Sat by Pulse 97 97 Oximetry (%) 11/01/19 11/01/19 11/01/19 18:00 21:00 22:00 Temperature 98.3 F 98.3 F Pulse Rate 102 H 109 H Pulse Rate [ Apical] Respiratory 18 20 Rate Blood Pressure 158/88 148/92 Blood Pressure [Right Arm] O2 Sat by Pulse 95 95 95 Oximetry (%) 11/02/19 11/02/19 11/02/19 06:00 09:00 10:00 Temperature 98.3 F Pulse Rate 103 H Pulse Rate [ Apical] Respiratory 20 Rate Blood Pressure 143/108 H 166/109 H Blood Pressure [Right Arm] O2 Sat by Pulse 94 L 94 L Oximetry (%) 11/02/19 11/02/19 11/02/19 14:17 16:30 21:00 Temperature 98.8 F 97.7 F Pulse Rate 126 H 85 Pulse Rate [ Apical] Respiratory 20 20 Rate Blood Pressure 168/118 H 124/78 Blood Pressure [Right Arm] O2 Sat by Pulse 94 L 95 Oximetry (%) 11/02/19 11/03/19 11/03/19 22:00 02:00 06:00 Temperature 98.5 F 98.1 F 98.7 F Pulse Rate 88 83 83 Pulse Rate [ Apical] Respiratory 18 18 18 Rate Blood Pressure 139/83 144/80 173/99 H Blood Pressure [Right Arm] O2 Sat by Pulse 95 90 L 100 Oximetry (%) 11/03/19 11/03/19 11/03/19 09:00 10:15 14:00 Temperature 97.6 F 98.5 F Pulse Rate 90 83 Pulse Rate [ Apical] Respiratory 18 20 Rate Blood Pressure 123/58 L 118/58 L Blood Pressure [Right Arm] O2 Sat by Pulse 95 95 97 Oximetry (%) Microbiology 10/31/19 17:00 Urine - Urine - Catheterized Urine Culture - Preliminary Staphylococcus Coagulase Neg Home Medications Medication Instructions Recorded Apixaban [Eliquis] 5 mg PO DAILY 03/13/17 Lisinopril [Zestril] 5 mg PO DAILY 03/13/17 Metoprolol Succinate 25 mg PO DAILY 03/13/17 Spironolactone [Aldactone] 25 mg PO DAILY 03/13/17 Furosemide [Lasix] 20 mg PO DAILY 11/01/19 Ipratropium/Albuterol Sulfate 1 amp IH Q4H PRN 11/01/19 [Iprat-Albut 0.5-3(2.5) mg/3 ml] Levothyroxine [Synthroid -] 100 mcg PO DAILY 08/25/20 Pravastatin Sodium 10 mg PO HS 11/01/19 Current Medications Generic Name Dose Route Start Last Admin Trade Name Freq PRN Reason Stop Dose Admin Albuterol Sulfate 2 puff 11/01/19 17:33 11/01/19 18:22 Ventolin Hfa Inhaler - IH 2 puff Q4H PRN Administration SHORT OF BREATH/WHEEZING Apixaban 5 mg 11/01/19 10:00 11/03/19 10:27 Eliquis - PO 5 mg BID NELSY Administration Aspirin 81 mg 11/01/19 10:00 11/03/19 10:31 Asa - PO 81 mg DAILY NELSY Administration Atorvastatin Calcium 10 mg 11/01/19 22:00 11/02/19 21:27 Lipitor - PO 10 mg HS NELSY Administration Budesonide/Formoterol Fumarate 2 puff 11/01/19 22:00 11/03/19 10:31 Symbicort 80/4.5mcg - IH 2 inh BID NELSY Administration Diphenhydramine HCl 25 mg 11/02/19 19:26 11/02/19 21:27 Benadryl - PO 25 mg ONCE PRN Administration AGITATION Furosemide 20 mg 11/02/19 10:00 11/03/19 10:27 Lasix - PO 20 mg DAILY NELSY Administration Haloperidol 2.5 mg 11/02/19 15:27 Haldol Injection (Fast Acting) - IM HS PRN AGITATION Ceftriaxone Sodium 1 gm/ 50 mls @ 200 mls/hr 11/01/19 10:00 11/03/19 10:27 Dextrose IVPB 200 mls/hr DAILY NELSY Administration Insulin Aspart 1 vial 10/31/19 22:00 11/03/19 12:12 Novolog Vial Sliding Scale - SQ Not Given ACHS [facility] Protocol Levothyroxine Sodium 100 mcg 11/02/19 07:00 11/03/19 06:05 Synthroid - PO 100 mcg AM NELSY Administration Metoprolol Succinate 50 mg 11/02/19 10:03 11/03/19 10:28 Toprol Xl - PO 50 mg DAILY NELSY Administration Spironolactone 25 mg 11/01/19 10:00 11/03/19 10:27 Aldactone - PO 25 mg DAILY NELSY Administration Thiamine HCl 100 mg 11/02/19 15:45 11/03/19 10:28 Vitamin B1 - PO 100 mg DAILY NELSY Administration ASSESSMENT AND PLAN: 88 M UTI Delirium 2/2 UTI HTN HFrEF Afib on Eliquis Prior Etoh abuse Etoh induced dementia HLD Hypothyroidism COVId negative COPD Plan: Cont. Rocephin for UTI to complete 5 days, gentle hydration d/t CHF MARY sent for SNF placement per daughter's request Frequent re-orientation, try to avoid psychtropic meds, light therapy, watch Cont. HF meds DVT ppx: Elijohanais
[2019-11-03] MEDS: ATORVASTATIN CA 10 MG TABLET (FP) PO SCH (22:26)
--- NOTE | 2019-11-04 05:59 | PN ---
Progress Note, Physician Chief Complaint: no CP or SOB TELE: controlled AFL History of Present Illness: Alt MS AF RVR UTI Former smoker - Current Medication List Current Medications: Active Medications Albuterol Sulfate (Ventolin Hfa Inhaler -) 2 puff IH Q4H PRN PRN Reason: SHORT OF BREATH/WHEEZING Last Admin: 11/01/19 18:22 Dose: 2 puff Documented by: Apixaban (Eliquis -) 5 mg PO BID REPLACED BY [facility] Last Admin: 11/03/19 22:26 Dose: 5 mg Documented by: Aspirin (Asa -) 81 mg PO DAILY REPLACED BY [facility] Last Admin: 11/03/19 10:31 Dose: 81 mg Documented by: Atorvastatin Calcium (Lipitor -) 10 mg PO HS REPLACED BY [facility] Last Admin: 11/03/19 22:26 Dose: 10 mg Documented by: Budesonide/Formoterol Fumarate (Symbicort 80/4.5mcg -) 2 puff IH BID REPLACED BY [facility] Last Admin: 11/03/19 22:27 Dose: 2 inh Documented by: Diphenhydramine HCl (Benadryl -) 25 mg PO ONCE PRN PRN Reason: AGITATION Last Admin: 11/02/19 21:27 Dose: 25 mg Documented by: Furosemide (Lasix -) 20 mg PO DAILY REPLACED BY [facility] Last Admin: 11/03/19 10:27 Dose: 20 mg Documented by: Haloperidol (Haldol Injection (Fast Acting) -) 2.5 mg IM HS PRN PRN Reason: AGITATION Ceftriaxone Sodium 1 gm/ (Dextrose) 50 mls @ 200 mls/hr IVPB DAILY REPLACED BY [facility] Last Admin: 11/03/19 10:27 Dose: 200 mls/hr Documented by: Insulin Aspart (Novolog Vial Sliding Scale -) 1 vial SQ ACHS REPLACED BY [facility]; Protocol Last Admin: 11/03/19 22:35 Dose: 2 unit Documented by: Levothyroxine Sodium (Synthroid -) 100 mcg PO AM REPLACED BY [facility] Last Admin: 11/03/19 06:05 Dose: 100 mcg Documented by: Metoprolol Succinate (Toprol Xl -) 50 mg PO DAILY REPLACED BY [facility] Last Admin: 11/03/19 10:28 Dose: 50 mg Documented by: Spironolactone (Aldactone -) 25 mg PO DAILY REPLACED BY [facility] Last Admin: 11/03/19 10:27 Dose: 25 mg Documented by: Thiamine HCl (Vitamin B1 -) 100 mg PO DAILY REPLACED BY [facility] Last Admin: 11/03/19 10:28 Dose: 100 mg Documented by: - Objective Vital Signs: Vital Signs Temperature 97.7 F 11/04/19 05:41 Pulse Rate 86 11/04/19 05:41 Respiratory Rate 20 11/04/19 05:41 Blood Pressure 141/86 11/04/19 05:41 O2 Sat by Pulse Oximetry (%) 95 11/04/19 05:41 Constitutional: Yes: No Distress, Calm Cardiovascular: Yes: Pulse Irregular Respiratory: Yes: Rhonchi Gastrointestinal: Yes: Soft Edema: No Neurological: Yes: Alert Labs: CBC, BMP 11/02/19 06:55 11/02/19 06:55 INR, PTT INR 1.13 (0.83-1.09) H 10/31/19 18:00 Laboratory Tests 11/01/19 11/01/19 11/02/19 09:30 11:20 06:55 WBC 8.9 Hgb 14.4 Plt Count 226 D Sodium Potassium Creatinine Syphilis Serology Non-reactive COVID-19 ([facility]) Not detected 11/02/19 11/04/19 06:55 05:30 WBC Hgb Plt Count Sodium 139 Potassium 4.6 Creatinine 1.1 Syphilis Serology COVID-19 ([facility]) Pending - ....Imaging EKG: Image Reviewed Assessment/Plan a/p: 88 yo with h/o 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
[2019-11-04] MEDS: LEVOTHYROXINE NA 100 MCG TABLET (FP) PO SCH (06:36)
[2019-11-04] MEDS: INSULIN SLIDING SCALE (NOVOLOG) 1 VIAL SQ SCH ×4 (06:36→22:34)
[2019-11-04] MEDS ORDERED: cefTRIAXone SODIUM 1 GM VIAL ONE (09:56)
[2019-11-04] MEDS ORDERED: DEXTROSE 5%-WATER - 50 ML IVPB ONE (09:56)
[2019-11-04] MEDS: APIXABAN 5 MG TABLET PO SCH ×2 (10:07→22:34)
[2019-11-04] MEDS: CEFTRIAXONE 1 GM in DEXTROSE 5%-WATER - 50 ML IVPB SCH (10:07)
[2019-11-04] MEDS: FUROSEMIDE 20 MG TABLET (FP) PO SCH (10:07)
[2019-11-04] MEDS: ASPIRIN 81 MG CHEWABLE TABLETS PO SCH (10:07)
[2019-11-04] MEDS: metoPROLOL SUCCINATE 25 MG TAB.SR.24H (FP) PO SCH (10:07)
[2019-11-04] MEDS: SPIRONOLACTONE 25 MG TABLET PO SCH (10:07)
[2019-11-04] MEDS: THIAMINE HCL 100 MG TABLET (FP) PO SCH (10:08)
[2019-11-04] MEDS: BUDESONIDE/FORMETEROL FUMARATE 80/4.5 mcg INHALER IH SCH ×2 (10:08→22:35)
--- NOTE | 2019-11-04 11:06 | PN ---
Progress Note, MARKETING PROPOSAL COORDINATOR - Note Progress Note: Selected Entries 11/03/19 11/03/19 11/04/19 15:00 19:27 05:41 Breakfast 100% Diet Tolerated Well Well Lunch 50% Supper 100% Temperature 97.7 F Pulse Rate 86 Blood Pressure 141/86 11/04/19 10:00 Breakfast Diet Tolerated Lunch Supper Temperature 98.2 F Pulse Rate 80 Blood Pressure 114/68 Tolerating diet
--- NOTE | 2019-11-04 12:38 | PN ---
Physical Exam: SUBJECTIVE: Patient seen and examined at bedside, MS much improved today, awaiting placement for Singh, family now refusing SNF. VSS. OBJECTIVE: GENERAL: The patient is awake and alert, NAD, engaging in conversation, AAox1 HEAD: Normal with no signs of trauma. EYES: Sclera anicteric, conjunctiva clear. ENT: Dry mucous membranes. LUNGS: Breath sounds equal, clear to auscultation bilaterally anteriorly, no wheezes, no crackles, no accessory muscle use. HEART: Regular rate and rhythm, S1, S2 without murmur ABDOMEN: Soft, obese, nontender, distended, normoactive bowel sounds, no guarding, no rebound EXTREMITIES: 2+ dorsal pedal pulses , warm, well-perfused NEUROLOGICAL: Normal speech, gait not observed. PSYCH: slightly confused, calm SKIN: Warm, dry, normal turgor, no rashes or lesions noted Vital Signs - 24 hr 11/03/19 11/03/19 11/03/19 14:00 18:00 21:00 Temperature 98.5 F 98.5 F Pulse Rate 83 77 Respiratory 20 19 Rate Blood Pressure 118/58 L 125/79 O2 Sat by Pulse 97 95 95 Oximetry (%) 11/03/19 11/04/19 11/04/19 22:00 05:41 10:00 Temperature 98.4 F 97.7 F 98.2 F Pulse Rate 80 86 80 Respiratory 20 20 19 Rate Blood Pressure 122/74 141/86 114/68 O2 Sat by Pulse 94 L 95 94 L Oximetry (%) Laboratory Results - last 24 hr 11/03/19 11/04/19 22:34 05:44 POC Glucometer 171 164 Active Medications Generic Name Dose Route Start Last Admin Trade Name Freq PRN Reason Stop Dose Admin Albuterol Sulfate 2 puff 11/01/19 17:33 11/01/19 18:22 Ventolin Hfa Inhaler - IH 2 puff Q4H PRN Administration SHORT OF BREATH/WHEEZING Apixaban 5 mg 11/01/19 10:00 11/04/19 10:07 Eliquis - PO 5 mg BID NELSY Administration Aspirin 81 mg 11/01/19 10:00 11/04/19 10:07 Asa - PO 81 mg DAILY NELSY Administration Atorvastatin Calcium 10 mg 11/01/19 22:00 11/03/19 22:26 Lipitor - PO 10 mg HS NELSY Administration Budesonide/Formoterol Fumarate 2 puff 11/01/19 22:00 11/04/19 10:08 Symbicort 80/4.5mcg - IH 2 inh BID NELSY Administration Diphenhydramine HCl 25 mg 11/02/19 19:26 11/02/19 21:27 Benadryl - PO 25 mg ONCE PRN Administration AGITATION Furosemide 20 mg 11/02/19 10:00 11/04/19 10:07 Lasix - PO 20 mg DAILY NELSY Administration Haloperidol 2.5 mg 11/02/19 15:27 Haldol Injection (Fast Acting) - IM HS PRN AGITATION Ceftriaxone Sodium 1 gm/ 50 mls @ 200 mls/hr 11/01/19 10:00 11/04/19 10:07 Dextrose IVPB 200 mls/hr DAILY NELSY Administration Insulin Aspart 1 vial 10/31/19 22:00 11/04/19 12:08 Novolog Vial Sliding Scale - SQ 2 unit ACHS NELSY Administration Protocol Levothyroxine Sodium 100 mcg 11/02/19 07:00 11/04/19 06:36 Synthroid - PO 100 mcg AM NELSY Administration Metoprolol Succinate 50 mg 11/02/19 10:03 11/04/19 10:07 Toprol Xl - PO 50 mg DAILY NELSY Administration Spironolactone 25 mg 11/01/19 10:00 11/04/19 10:07 Aldactone - PO 25 mg DAILY NELSY Administration Thiamine HCl 100 mg 11/02/19 15:45 11/04/19 10:08 Vitamin B1 - PO 100 mg DAILY NELSY Administration ASSESSMENT/PLAN: 88 M UTI Delirium 2/2 UTI HTN HFrEF Afib on Eliquis Prior Etoh abuse Etoh induced dementia HLD Hypothyroidism COVId negative COPD Plan: Finished course of abx for UTI DC tele and downgrade MARY sent for Francisco, family refusing SNF now Frequent re-orientation, try to avoid psychtropic meds, light therapy, watch sundowning Cont. HF meds DVT ppx: Eliquis Visit type - Emergency Visit Emergency Visit: Yes ED Registration Date: 10/31/19 Care time: The patient presented to the Emergency Department on the above date and was hospitalized for further evaluation of their emergent condition. - New Patient This patient is new to me today: No - Critical Care Critical Care patient: No - Discharge Referral Referred to [facility] Med P.C[facility] No - Medication Review Med list reviewed for High Risk Meds patients 65 and older: Yes
--- NOTE | 2019-11-04 13:20 | CON.ID ---
Consult Consult Specialty:: infectious diseases Referred by:: Reason for Consultation:: confusion,uti, - History of Present Illness Chief Complaint: confusion History of Present Illness: 88M with hx/o Afib on Eliquis, CVA, HTN, HFrEF, and CAD presents to the ED with AMS. As per daughter, normally A&O x3 but then only oriented to name. In the ED, denies any complaint. Keeps insisting on standing and asking for wheelchair to leave. patients work up shws gm positive bacteremia - History Source History Provided By: Medical Record Limitations to Obtaining History: Dementia - Past Medical History Cardio/Vascular: Yes: CHF, HTN, AR, AR Musculoskeletal: Yes: Chronic low back pain Rheumatology: Yes: Gout ENT: Yes: Other (throat cancer) Endocrine: Yes: Hypothyroidism - Past Surgical History Past Surgical History: Yes: Hernia Repair - Alcohol/Substance Use Hx Alcohol Use: No History of Substance Use: reports: None - Smoking History Smoking history: Former smoker Have you smoked in the past 12 months: No Aproximately how many cigarettes per day: 0 - Social History ADL: Independent History of Recent Travel: No Home Medications - Allergies Allergies/Adverse Reactions: Allergies Allergy/AdvReac Type Severity Reaction Status Date / Time No Known Allergies Allergy Verified 03/13/17 16:34 - Home Medications Home Medications: Ambulatory Orders Apixaban [Eliquis] 5 mg PO DAILY 03/13/17 Lisinopril [Zestril] 5 mg PO DAILY 03/13/17 RX: Metoprolol Succinate 25 mg PO DAILY 03/13/17 Spironolactone [Aldactone] 25 mg PO DAILY 03/13/17 Furosemide [Lasix] 20 mg PO DAILY 11/01/19 Levothyroxine [Synthroid -] 100 mcg PO DAILY 11/01/19 RX: Ipratropium/Albuterol Sulfate [Iprat-Albut 0.5-3(2.5) mg/3 ml] 1 amp IH Q4H PRN 11/01/19 RX: Pravastatin Sodium 10 mg PO HS 11/01/19 Review of Systems Unable to obtain ROS, reason: unable to obtain Physical Exam Vital Signs: Vital Signs Temperature 98.2 F 11/04/19 10:00 Pulse Rate 80 11/04/19 10:00 Respiratory Rate 19 11/04/19 10:00 Blood Pressure 114/68 11/04/19 10:00 O2 Sat by Pulse Oximetry (%) 94 L 11/04/19 10:00 Constitutional: Yes: Well Nourished, Calm, Mild Distress Eyes: Yes: Conjunctiva Clear HENT: Yes: Atraumatic, Normocephalic Neck: Yes: Supple, Trachea Midline Cardiovascular: Yes: Regular Rate and Rhythm Respiratory: Yes: Regular, CTA Bilaterally Gastrointestinal: Yes: Normal Bowel Sounds, Soft Renal/: No: CVA Tenderness - Left, CVA Tenderness - Right Musculoskeletal: Yes: Other (edema of the legs) Integumentary: Yes: Other Wound/Incision: Yes: Other Neurological: Yes: Alert, Confusion Psychiatric: Yes: Other Labs: CBC, BMP 11/02/19 06:55 11/02/19 06:55 Imaging - Results Chest X-ray: Report Reviewed, Image Reviewed X-ray: Report Reviewed, Image Reviewed MRI: Report Reviewed, Image Reviewed Assessment/Plan Problem List - Problems (1) AMS (altered mental status) Code(s): R41.82 - ALTERED MENTAL STATUS, UNSPECIFIED (2) UTI (urinary tract infection) Code(s): N39.0 - URINARY TRACT INFECTION, SITE NOT SPECIFIED Qualifiers: (3) Atrial fibrillation Code(s): I48.91 - UNSPECIFIED ATRIAL FIBRILLATION Qualifiers: Atrial fibrillation type: chronic (4) HLD (hyperlipidemia) Code(s): E78.5 - HYPERLIPIDEMIA, UNSPECIFIED (5) HTN (hypertension) Code(s): I10 - ESSENTIAL (PRIMARY) HYPERTENSION (6) Hypothyroid Code(s): E03.9 - HYPOTHYROIDISM, UNSPECIFIED Assessment/Plan AMS UTI AFIB s/p CVA HTN will start patient on abx repeat blood cx monitor confusion asp precautions rest as per the team
--- NOTE | 2019-11-04 14:59 | EKG ---
Test Reason : Blood Pressure : / mmHG Vent. Rate : 099 BPM Atrial Rate : 258 BPM P-R Int : 000 ms QRS Dur : 100 ms QT Int : 360 ms P-R-T Axes : 000 028 065 degrees QTc Int : 462 ms ATRIAL FIBRILLATION WITH PREMATURE VENTRICULAR OR ABERRANTLY CONDUCTED COMPLEXES ABNORMAL ECG WHEN COMPARED WITH ECG OF 31-OCT-2019 19:10, NO SIGNIFICANT CHANGE WAS FOUND Confirmed by PETE KEY MD ([id number]) on 11/04/2019 2:59:16 PM Referred By: Confirmed By:PETE KEY MD
--- NOTE | 2019-11-04 16:36 | CON.PSY ---
Psychiatry Consult Chief Complaint: 88 Year old male admitted [facility] UTI and AMs. seen for Psych eval.. Patient much better today and no longer hallucinating or agitated, staff are able to manage him.. Symptoms: reports: Irritability, Hallucinations - Previous Psychiatric Treatment Outpatient: None Inpatient: None - Previous Substance Abuse Treatment Outpatient: None Inpatient: None - Current Medications Current Medications: Active Medications Albuterol Sulfate (Ventolin Hfa Inhaler -) 2 puff IH Q4H PRN PRN Reason: SHORT OF BREATH/WHEEZING Last Admin: 11/01/19 18:22 Dose: 2 puff Documented by: Apixaban (Eliquis -) 5 mg PO BID [facility] Last Admin: 11/04/19 10:07 Dose: 5 mg Documented by: Aspirin (Asa -) 81 mg PO DAILY [facility] Last Admin: 11/04/19 10:07 Dose: 81 mg Documented by: Atorvastatin Calcium (Lipitor -) 10 mg PO HS [facility] Last Admin: 11/03/19 22:26 Dose: 10 mg Documented by: Budesonide/Formoterol Fumarate (Symbicort 80/4.5mcg -) 2 puff IH BID [facility] Last Admin: 11/04/19 10:08 Dose: 2 inh Documented by: Furosemide (Lasix -) 20 mg PO DAILY [facility] Last Admin: 11/04/19 10:07 Dose: 20 mg Documented by: Haloperidol (Haldol Injection (Fast Acting) -) 2.5 mg IM HS PRN PRN Reason: AGITATION Ceftriaxone Sodium 1 gm/ (Dextrose) 50 mls @ 200 mls/hr IVPB DAILY [facility] Last Admin: 11/04/19 10:07 Dose: 200 mls/hr Documented by: Insulin Aspart (Novolog Vial Sliding Scale -) 1 vial SQ ACHS [facility]; Protocol Last Admin: 11/04/19 12:08 Dose: 2 unit Documented by: Levothyroxine Sodium (Synthroid -) 100 mcg PO AM [facility] Last Admin: 11/04/19 06:36 Dose: 100 mcg Documented by: Metoprolol Succinate (Toprol Xl -) 50 mg PO DAILY [facility] Last Admin: 11/04/19 10:07 Dose: 50 mg Documented by: Spironolactone (Aldactone -) 25 mg PO DAILY [facility] Last Admin: 11/04/19 10:07 Dose: 25 mg Documented by: Thiamine HCl (Vitamin B1 -) 100 mg PO DAILY [facility] Last Admin: 11/04/19 10:08 Dose: 100 mg Documented by: - Allergies Allergies: Allergies Allergy/AdvReac Type Severity Reaction Status Date / Time No Known Allergies Allergy Verified 03/13/17 16:34 - Current Living Status Usual Living Arrangement: With Significant Other - Current Mental Status Evaluation Appearance: Well Groomed Attitude: Cooperative - Affect Affect: Constrictive Appropriateness: Appropriate to Content - Mood Mood: Euthymic - Speech/Language Expressive: Delayed - Psychomotor Activity Psychomotor Activity: Normal - Thought Process Thought Process: Circumstantial - Thought Content Hallucinations: Absent Delusions: Absent - Self Perception Self Perception: No Impairment - Cognition Attention: Diminished Memory, Immediate Recall: Impaired Memory, Short Term: 2/3 Memory, Remote with Promptin/3 - Concentration Serial Sevens Intact: No Simple Calculations Intact: No - Abstraction Proverb Interpretation: Intact Judgement: Minimally Impaired - Insight Insight: Intact - Impulse Control Impulse Control: Minimally Impaired - Suicidal Ideation Suicidal Ideation: No - Homicidal Ideation Homicidal Ideation: No Assessment/Plan 1) AMS and Hallucinations are resolving.. No Psych Meds needed. 20 d/c Benadryl.. can causer more confusion and hallucinations, dry mouth, constipation and delirium...
[2019-11-04] MEDS: ATORVASTATIN CA 10 MG TABLET (FP) PO SCH (22:34)
[2019-11-05] MEDS: INSULIN SLIDING SCALE (NOVOLOG) 1 VIAL SQ SCH ×4 (06:14→21:18)
[2019-11-05] MEDS: LEVOTHYROXINE NA 100 MCG TABLET (FP) PO SCH (06:16)
--- NOTE | 2019-11-05 06:20 | PN ---
Progress Note, Physician Chief Complaint: No CP/SOB TELE: AF, controlled History of Present Illness: UTI NICM AF - Current Medication List Current Medications: Active Medications Albuterol Sulfate (Ventolin Hfa Inhaler -) 2 puff IH Q4H PRN PRN Reason: SHORT OF BREATH/WHEEZING Last Admin: 11/01/19 18:22 Dose: 2 puff Documented by: Apixaban (Eliquis -) 5 mg PO BID [facility] Last Admin: 11/04/19 22:34 Dose: 5 mg Documented by: Aspirin (Asa -) 81 mg PO DAILY [facility] Last Admin: 11/04/19 10:07 Dose: 81 mg Documented by: Atorvastatin Calcium (Lipitor -) 10 mg PO HS [facility] Last Admin: 11/04/19 22:34 Dose: 10 mg Documented by: Budesonide/Formoterol Fumarate (Symbicort 80/4.5mcg -) 2 puff IH BID [facility] Last Admin: 11/04/19 22:35 Dose: 2 inh Documented by: Furosemide (Lasix -) 20 mg PO DAILY [facility] Last Admin: 11/04/19 10:07 Dose: 20 mg Documented by: Haloperidol (Haldol Injection (Fast Acting) -) 2.5 mg IM HS PRN PRN Reason: AGITATION Ceftriaxone Sodium 1 gm/ (Dextrose) 50 mls @ 200 mls/hr IVPB DAILY [facility] Last Admin: 11/04/19 10:07 Dose: 200 mls/hr Documented by: Insulin Aspart (Novolog Vial Sliding Scale -) 1 vial SQ ACHS [facility]; Protocol Last Admin: 11/05/19 06:14 Dose: 2 unit Documented by: Levothyroxine Sodium (Synthroid -) 100 mcg PO AM [facility] Last Admin: 11/05/19 06:16 Dose: 100 mcg Documented by: Metoprolol Succinate (Toprol Xl -) 50 mg PO DAILY [facility] Last Admin: 11/04/19 10:07 Dose: 50 mg Documented by: Spironolactone (Aldactone -) 25 mg PO DAILY [facility] Last Admin: 11/04/19 10:07 Dose: 25 mg Documented by: Thiamine HCl (Vitamin B1 -) 100 mg PO DAILY [facility] Last Admin: 11/04/19 10:08 Dose: 100 mg Documented by: - Objective Vital Signs: Vital Signs Temperature 98.3 F 11/05/19 02:00 Pulse Rate 80 11/05/19 02:00 Respiratory Rate 18 11/05/19 02:00 Blood Pressure 121/65 11/05/19 02:00 O2 Sat by Pulse Oximetry (%) 94 L 11/04/19 22:00 Constitutional: Yes: No Distress Cardiovascular: Yes: Pulse Irregular Respiratory: Yes: Other (decreased basilar breath sounds) Gastrointestinal: Yes: Soft (nt) Edema: No Neurological: Yes: Alert, Oriented ...Motor Strength: WNL Labs: CBC, BMP 11/02/19 06:55 11/02/19 06:55 INR, PTT INR 1.13 (0.83-1.09) H 10/31/19 18:00 - ....Imaging EKG: Image Reviewed Assessment/Plan Assessment/Plan a/p: 88 yo with h/o 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, non-obstructive cad, 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, afib with h/o cva (on eliquis), htn, hl, s/p remote LE bypass in setting of LE trauma, hypothyroid, BPH, prior heavy alcohol use, folate deficiency anemia, h/o throat CA s/p XRT, here with ams and UTI ams: + UTI -abx as per primary team -psych evaluating non-obstructive cad: -no signs acs - can d/c ASA as he is on full AC and risk of bleeding in this age group is elevated -cont statin, bb 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
[2019-11-05] MEDS ORDERED: cefTRIAXone SODIUM 1 GM VIAL ONE (09:09)
[2019-11-05] MEDS ORDERED: DEXTROSE 5%-WATER - 50 ML IVPB ONE (09:09)
[2019-11-05] MEDS: CEFTRIAXONE 1 GM in DEXTROSE 5%-WATER - 50 ML IVPB SCH (09:12)
[2019-11-05] MEDS: ASPIRIN 81 MG CHEWABLE TABLETS PO SCH (09:13)
[2019-11-05] MEDS: SPIRONOLACTONE 25 MG TABLET PO SCH (09:13)
[2019-11-05] MEDS: BUDESONIDE/FORMETEROL FUMARATE 80/4.5 mcg INHALER IH SCH ×2 (09:13→21:18)
[2019-11-05] MEDS: APIXABAN 5 MG TABLET PO SCH ×2 (09:13→21:13)
[2019-11-05] MEDS: FUROSEMIDE 20 MG TABLET (FP) PO SCH (09:13)
[2019-11-05] MEDS: metoPROLOL SUCCINATE 25 MG TAB.SR.24H (FP) PO SCH (09:13)
[2019-11-05] MEDS: THIAMINE HCL 100 MG TABLET (FP) PO SCH (09:13)
--- NOTE | 2019-11-05 12:06 | PN ---
Physical Exam: SUBJECTIVE: Patient seen and examined at bedside, Singh refused. Family will need to explore SNF options, NAD, denies complaints. OBJECTIVE: GENERAL: The patient is awake and alert, NAD, engaging in conversation, AAox1 HEAD: Normal with no signs of trauma. EYES: Sclera anicteric, conjunctiva clear. ENT: Dry mucous membranes. LUNGS: Breath sounds equal, clear to auscultation bilaterally anteriorly, no wheezes, no crackles, no accessory muscle use. HEART: Regular rate and rhythm, S1, S2 without murmur ABDOMEN: Soft, obese, nontender, distended, normoactive bowel sounds, no guarding, no rebound EXTREMITIES: 2+ dorsal pedal pulses , warm, well-perfused NEUROLOGICAL: Normal speech, gait not observed. PSYCH: slightly confused, calm SKIN: Warm, dry, normal turgor, no rashes or lesions noted Laboratory Results - last 24 hr 11/04/19 11/04/19 11/05/19 17:14 22:31 06:10 POC Glucometer 176 160 158 11/05/19 11:32 POC Glucometer 168 Active Medications Generic Name Dose Route Start Last Admin Trade Name Freq PRN Reason Stop Dose Admin Albuterol Sulfate 2 puff 11/01/19 17:33 11/01/19 18:22 Ventolin Hfa Inhaler - IH 2 puff Q4H PRN Administration SHORT OF BREATH/WHEEZING Apixaban 5 mg 11/01/19 10:00 11/05/19 09:13 Eliquis - PO 5 mg BID NELSY Administration Atorvastatin Calcium 10 mg 11/01/19 22:00 11/04/19 22:34 Lipitor - PO 10 mg HS NELSY Administration Budesonide/Formoterol Fumarate 2 puff 11/01/19 22:00 11/05/19 09:13 Symbicort 80/4.5mcg - IH 2 puff BID NELSY Administration Furosemide 20 mg 11/02/19 10:00 11/05/19 09:13 Lasix - PO 20 mg DAILY NELSY Administration Haloperidol 2.5 mg 11/02/19 15:27 Haldol Injection (Fast Acting) - IM HS PRN AGITATION Ceftriaxone Sodium 1 gm/ 50 mls @ 200 mls/hr 11/01/19 10:00 11/05/19 09:12 Dextrose IVPB 200 mls/hr DAILY NELSY Administration Insulin Aspart 1 vial 10/31/19 22:00 11/05/19 11:33 Novolog Vial Sliding Scale - SQ 2 unit ACHS NELSY Administration Protocol Levothyroxine Sodium 100 mcg 11/02/19 07:00 11/05/19 06:16 Synthroid - PO 100 mcg AM NELSY Administration Metoprolol Succinate 50 mg 11/02/19 10:03 11/05/19 09:13 Toprol Xl - PO 50 mg DAILY NELSY Administration Spironolactone 25 mg 11/01/19 10:00 11/05/19 09:13 Aldactone - PO 25 mg DAILY NELSY Administration Thiamine HCl 100 mg 11/02/19 15:45 11/05/19 09:13 Vitamin B1 - PO 100 mg DAILY NELSY Administration ASSESSMENT/PLAN: 88 M UTI Delirium 2/2 UTI HTN HFrEF Afib on Eliquis Prior Etoh abuse Etoh induced dementia HLD Hypothyroidism COVId negative COPD Plan: Finished course of abx for UTI DC tele and downgrade MARY sent for Singh, family refusing SNF now Frequent re-orientation, try to avoid psychtropic meds, light therapy, watch sundowning Cont. HF meds DVT ppx: Eliquis Visit type - Emergency Visit Emergency Visit: Yes ED Registration Date: 10/31/19 Care time: The patient presented to the Emergency Department on the above date and was hospitalized for further evaluation of their emergent condition. - New Patient This patient is new to me today: No - Critical Care Critical Care patient: No - Discharge Referral Referred to [facility] Med [facility].C[facility] No - Medication Review Med list reviewed for High Risk Meds patients 65 and older: Yes
[2019-11-05] MEDS: GABAPENTIN 100 MG CAPSULE PO SCH ×2 (14:03→14:06)
--- NOTE | 2019-11-05 16:48 | PN ---
Progress Note, Physician History of Present Illness: Pt is alert and without acute distress. Has some confusion as to where he is and year. Denies SOB or cough, abd pain, dysuria. - Current Medication List Current Medications: Active Medications Albuterol Sulfate (Ventolin Hfa Inhaler -) 2 puff IH Q4H PRN PRN Reason: SHORT OF BREATH/WHEEZING Last Admin: 11/01/19 18:22 Dose: 2 puff Documented by: Apixaban (Eliquis -) 5 mg PO BID [facility] Last Admin: 11/05/19 09:13 Dose: 5 mg Documented by: Atorvastatin Calcium (Lipitor -) 10 mg PO HS [facility] Last Admin: 11/04/19 22:34 Dose: 10 mg Documented by: Budesonide/Formoterol Fumarate (Symbicort 80/4.5mcg -) 2 puff IH BID [facility] Last Admin: 11/05/19 09:13 Dose: 2 puff Documented by: Furosemide (Lasix -) 20 mg PO DAILY [facility] Last Admin: 11/05/19 09:13 Dose: 20 mg Documented by: Gabapentin (Neurontin -) 100 mg PO DAILY [facility] Last Admin: 11/05/19 14:06 Dose: Not Given Documented by: Ceftriaxone Sodium 1 gm/ (Dextrose) 50 mls @ 200 mls/hr IVPB DAILY [facility] Last Admin: 11/05/19 09:12 Dose: 200 mls/hr Documented by: Insulin Aspart (Novolog Vial Sliding Scale -) 1 vial SQ ACHS [facility]; Protocol Last Admin: 11/05/19 11:33 Dose: 2 unit Documented by: Levothyroxine Sodium (Synthroid -) 100 mcg PO AM [facility] Last Admin: 11/05/19 06:16 Dose: 100 mcg Documented by: Metoprolol Succinate (Toprol Xl -) 50 mg PO DAILY [facility] Last Admin: 11/05/19 09:13 Dose: 50 mg Documented by: Spironolactone (Aldactone -) 25 mg PO DAILY [facility] Last Admin: 11/05/19 09:13 Dose: 25 mg Documented by: Thiamine HCl (Vitamin B1 -) 250 mg PO DAILY [facility] - Objective Vital Signs: Vital Signs Temperature 99.4 F 11/05/19 14:04 Pulse Rate 99 H 11/05/19 14:04 Respiratory Rate 18 11/05/19 14:04 Blood Pressure 137/84 11/05/19 14:04 O2 Sat by Pulse Oximetry (%) 95 11/05/19 10:00 Constitutional: Yes: No Distress, Calm Eyes: Yes: Conjunctiva Clear Cardiovascular: Yes: Regular Rate and Rhythm Respiratory: Yes: CTA Bilaterally (poor inspiratory effort) Gastrointestinal: Yes: Normal Bowel Sounds, Soft Genitourinary: Yes: Incontinence Musculoskeletal: Yes: WNL Extremities: Yes: WNL Integumentary: Yes: WNL Neurological: Yes: Alert, Confusion Psychiatric: Yes: Alert Labs: CBC, BMP 11/02/19 06:55 11/02/19 06:55 INR, PTT INR 1.13 (0.83-1.09) H 10/31/19 18:00 Laboratory Last Values WBC 8.9 K/mm3 (4.0-10.0) 11/02/19 06:55 RBC 4.35 M/mm3 (4.00-5.60) 11/02/19 06:55 Hgb 14.4 GM/dL (11.7-16.9) 11/02/19 06:55 Hct 43.4 % (35.4-49) 11/02/19 06:55 MCV 99.8 fl (80-96) H 11/02/19 06:55 MCH 33.1 pg (25.7-33.7) 11/02/19 06:55 MCHC 33.2 g/dl (32.0-35.9) 11/02/19 06:55 RDW 12.8 % (11.9-15.9) 11/02/19 06:55 Plt Count 226 K/MM3 (134-434) D 11/02/19 06:55 MPV 8.7 fl (7.5-11.1) 11/02/19 06:55 Absolute Neuts (auto) 7.1 K/mm3 (1.5-8.0) 11/02/19 06:55 Neutrophils % 80.1 % (42.8-82.8) 11/02/19 06:55 Lymphocytes % 11.0 % (8-40) 11/02/19 06:55 Monocytes % 8.0 % (3.8-10.2) 11/02/19 06:55 Eosinophils % 0.7 % (0-4.5) D 11/02/19 06:55 Basophils % 0.2 % (0-2.0) 11/02/19 06:55 Nucleated RBC % 0 % (0-0) 11/02/19 06:55 PT with INR 13.30 SEC (9.7-13.0) H 10/31/19 18:00 INR 1.13 (0.83-1.09) H 10/31/19 18:00 PTT (Actin FS) 30.5 SECONDS (25.2-36.5) 10/31/19 18:00 Sodium 139 mmol/L (136-145) 11/02/19 06:55 Potassium 4.6 mmol/L (3.5-5.1) 11/02/19 06:55 Chloride 103 mmol/L (98-107) 11/02/19 06:55 Carbon Dioxide 28 mmol/L (21-32) 11/02/19 06:55 Anion Gap 8 MMOL/L (8-16) 11/02/19 06:55 BUN 18.0 mg/dL (7-18) 11/02/19 06:55 Creatinine 1.1 mg/dL (0.55-1.3) 11/02/19 06:55 Est GFR (CKD-EPI)AfAm 69.10 11/02/19 06:55 Est GFR (CKD-EPI)NonAf 59.62 11/02/19 06:55 POC Glucometer 168 UNITS (80-120) 11/05/19 11:32 Random Glucose 159 mg/dL (74-106) H 11/02/19 06:55 Hemoglobin A1c % 6.4 % (4.2-6.3) H 11/01/19 11:20 Lactic Acid 1.0 mmol/L (0.4-2.0) 11/01/19 00:15 Calcium 9.2 mg/dL (8.5-10.1) 11/02/19 06:55 Phosphorus 2.9 mg/dL (2.5-4.9) 11/02/19 06:55 Magnesium 2.0 mg/dL (1.8-2.4) 11/02/19 06:55 Total Bilirubin 1.3 mg/dL (0.2-1) H 11/02/19 06:55 AST 23 U/L (15-37) 11/02/19 06:55 ALT 21 U/L (13-61) 11/02/19 06:55 Alkaline Phosphatase 98 U/L (45-117) 11/02/19 06:55 Ammonia 26.90 umol/L (11-32) 11/02/19 06:55 Creatine Kinase 81 U/L (26-308) 10/31/19 18:00 Troponin I < 0.02 ng/ml (0.00-0.05) 10/31/19 18:00 Total Protein 7.8 g/dl (6.4-8.2) 11/02/19 06:55 Albumin 3.6 g/dl (3.4-5.0) 11/02/19 06:55 Triglycerides 76 mg/dL (0-150) 11/01/19 11:20 Cholesterol 139 mg/dL (50-200) 11/01/19 11:20 Total LDL Cholesterol 80 mg/dL (5-100) 11/01/19 11:20 HDL Cholesterol 48 mg/dL (40-60) 11/01/19 11:20 Vitamin B12 631 pg/ml (193-986) 11/01/19 11:20 Serum Folate 16 ng/mL (3.1-17.5) 11/01/19 11:20 TSH 2.12 uIU/ml (0.358-3.74) D 11/01/19 11:20 Urine Color Yellow 10/31/19 15:30 Urine Appearance Clear 10/31/19 15:30 Urine pH 6.5 (5.0-8.0) D 10/31/19 15:30 Ur Specific [place] 1.020 (1.010-1.035) 10/31/19 15:30 Urine Protein 3+ (NEGATIVE) H 10/31/19 15:30 Urine Glucose (UA) Negative (NEGATIVE) 10/31/19 15:30 Urine Ketones Negative (NEGATIVE) 10/31/19 15:30 Urine Blood Trace (NEGATIVE) 10/31/19 15:30 Urine Nitrite Negative (NEGATIVE) 10/31/19 15:30 Urine Bilirubin Negative (NEGATIVE) 10/31/19 15:30 Urine Urobilinogen 1.0 mg/dL (0.2-1.0) 10/31/19 15:30 Ur Leukocyte Esterase 2+ (NEGATIVE) H 10/31/19 15:30 Urine WBC (Auto) 467 /uL (0-25.8) 10/31/19 15:30 Urine RBC (Auto) 49 /uL (0-23.9) 10/31/19 15:30 Urine Casts (Auto) 3 /uL (0-3.1) 10/31/19 15:30 U Epithel Cells (Auto) >36 /uL (0-25.1) 10/31/19 15:30 Urine Bacteria (Auto) 66 /uL (0-1359) 10/31/19 15:30 Alcohol, Quantitative < 3 mg/dL (0.0-5.0) 10/31/19 18:00 Syphilis Serology Non-reactive (NONREACTIVE) 11/01/19 11:20 COVID-19 (DESIRAE) Not detected (Not Detected) 11/04/19 05:30 Blood Type A POSITIVE 10/31/19 18:00 Antibody Screen Negative 10/31/19 18:00 Microbiology 10/31/19 17:00 Urine - Urine - Catheterized Urine Culture - Final Staphylococcus Warneri - ....Imaging Chest X-ray: Report Reviewed Cat Scan: Report Reviewed MRI: Report Reviewed Problem List - Problems (1) AMS (altered mental status) Code(s): R41.82 - ALTERED MENTAL STATUS, UNSPECIFIED (2) UTI (urinary tract infection) Code(s): N39.0 - URINARY TRACT INFECTION, SITE NOT SPECIFIED Qualifiers: (3) Atrial fibrillation Code(s): I48.91 - UNSPECIFIED ATRIAL FIBRILLATION Qualifiers: Atrial fibrillation type: chronic (4) HLD (hyperlipidemia) Code(s): E78.5 - HYPERLIPIDEMIA, UNSPECIFIED (5) HTN (hypertension) Code(s): I10 - ESSENTIAL (PRIMARY) HYPERTENSION (6) Hypothyroid Code(s): E03.9 - HYPOTHYROIDISM, UNSPECIFIED Assessment/Plan AMS UTI AFIB s/p CVA HTN -- on Ceftriaxone, july d/c -- today temp of 99.4 - continue monitor temps, if trends up, send repeat blood/urine cultures -- remains confused and AAO x 1 but without distress
[2019-11-05] MEDS: ATORVASTATIN CA 10 MG TABLET (FP) PO SCH (21:13)
--- NOTE | 2019-11-06 05:47 | PN ---
Progress Note, Physician Chief Complaint: no distress no CP/SOB/palps History of Present Illness: TELE: Controlled AF - Current Medication List Current Medications: Active Medications Albuterol Sulfate (Ventolin Hfa Inhaler -) 2 puff IH Q4H PRN PRN Reason: SHORT OF BREATH/WHEEZING Last Admin: 11/01/19 18:22 Dose: 2 puff Documented by: Apixaban (Eliquis -) 5 mg PO BID [facility] Last Admin: 11/05/19 21:13 Dose: Not Given Documented by: Atorvastatin Calcium (Lipitor -) 10 mg PO HS [facility] Last Admin: 11/05/19 21:13 Dose: Not Given Documented by: Budesonide/Formoterol Fumarate (Symbicort 80/4.5mcg -) 2 puff IH BID [facility] Last Admin: 11/05/19 21:18 Dose: Not Given Documented by: Furosemide (Lasix -) 20 mg PO DAILY [facility] Last Admin: 11/05/19 09:13 Dose: 20 mg Documented by: Gabapentin (Neurontin -) 100 mg PO DAILY [facility] Last Admin: 11/05/19 14:06 Dose: Not Given Documented by: Ceftriaxone Sodium 1 gm/ (Dextrose) 50 mls @ 200 mls/hr IVPB DAILY [facility] Last Admin: 11/05/19 09:12 Dose: 200 mls/hr Documented by: Insulin Aspart (Novolog Vial Sliding Scale -) 1 vial SQ ACHS [facility]; Protocol Last Admin: 11/05/19 21:18 Dose: Not Given Documented by: Levothyroxine Sodium (Synthroid -) 100 mcg PO AM [facility] Last Admin: 11/05/19 06:16 Dose: 100 mcg Documented by: Metoprolol Succinate (Toprol Xl -) 50 mg PO DAILY [facility] Last Admin: 11/05/19 09:13 Dose: 50 mg Documented by: Spironolactone (Aldactone -) 25 mg PO DAILY [facility] Last Admin: 11/05/19 09:13 Dose: 25 mg Documented by: Thiamine HCl (Vitamin B1 -) 250 mg PO DAILY [facility] - Objective Vital Signs: Vital Signs Temperature 98.0 F 11/06/19 03:28 Pulse Rate 71 11/06/19 03:28 Respiratory Rate 18 11/06/19 03:28 Blood Pressure 136/63 11/06/19 03:28 O2 Sat by Pulse Oximetry (%) 93 L 11/05/19 22:00 Constitutional: Yes: No Distress, Calm Cardiovascular: Yes: Pulse Irregular Respiratory: Yes: Rhonchi Gastrointestinal: Yes: Soft (nt) Edema: No Neurological: Yes: Alert, Oriented ...Motor Strength: WNL Labs: CBC, BMP 11/02/19 06:55 11/02/19 06:55 INR, PTT INR 1.13 (0.83-1.09) H 10/31/19 18:00 Laboratory Tests 11/04/19 05:30 COVID-19 (DESIRAE) Not detected - ....Imaging EKG: Image Reviewed Assessment/Plan Assessment/Plan a/p: 88 yo with h/o 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, non-obstructive cad, 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, afib with h/o cva (on eliquis), htn, hl, s/p remote LE bypass in setting of LE trauma, hypothyroid, BPH, prior heavy alcohol use, folate deficiency anemia, h/o throat CA s/p XRT, here with ams and UTI ams: + UTI -abx as per primary team -psych evaluating non-obstructive cad: -no signs acs - can d/c ASA as he is on full AC and risk of bleeding in this age group is elevated -cont statin, bb 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
[2019-11-06] MEDS: LEVOTHYROXINE NA 100 MCG TABLET (FP) PO SCH (06:04)
[2019-11-06] MEDS: INSULIN SLIDING SCALE (NOVOLOG) 1 VIAL SQ SCH ×4 (06:04→22:57)
[2019-11-06] MEDS ORDERED: DEXTROSE 5%-WATER - 50 ML IVPB ONE (10:17)
[2019-11-06] MEDS ORDERED: cefTRIAXone SODIUM 1 GM VIAL ONE (10:17)
[2019-11-06] MEDS: GABAPENTIN 100 MG CAPSULE PO SCH (10:18)
[2019-11-06] MEDS: metoPROLOL SUCCINATE 25 MG TAB.SR.24H (FP) PO SCH (10:19)
[2019-11-06] MEDS: SPIRONOLACTONE 25 MG TABLET PO SCH (10:19)
[2019-11-06] MEDS: FUROSEMIDE 20 MG TABLET (FP) PO SCH (10:19)
[2019-11-06] MEDS: APIXABAN 5 MG TABLET PO SCH ×2 (10:19→22:40)
[2019-11-06] MEDS: BUDESONIDE/FORMETEROL FUMARATE 80/4.5 mcg INHALER IH SCH ×2 (10:20→22:41)
[2019-11-06] MEDS: CEFTRIAXONE 1 GM in DEXTROSE 5%-WATER - 50 ML IVPB SCH (10:20)
[2019-11-06] MEDS: THIAMINE HCL 100 MG TABLET (FP) PO SCH (10:20)
--- NOTE | 2019-11-06 13:09 | PN ---
Physical Exam: SUBJECTIVE: Patient seen and examined Patient comfortable no shortness of breath but confused afebrile seen by ID yesterday OBJECTIVE: Vital Signs Period Temp Pulse Resp BP Sys/Yañez Pulse Ox Last 24 Hr 98.0 F-99.4 F 71-99 18-22 136-158/63-88 93-94 GENERAL: The patient is awake, alert, and fully oriented, in no acute distress. HEAD: Normal with no signs of trauma. EYES: PERRL, extraocular movements intact, sclera anicteric, conjunctiva clear. No ptosis. ENT: Ears normal, nares patent, oropharynx clear without exudates, moist mucous membranes. NECK: Trachea midline, full range of motion, supple. LUNGS: Breath sounds equal, clear to auscultation bilaterally, no wheezes, no crackles, no accessory muscle use. HEART: Regular rate and rhythm, S1, S2 without murmur, rub or gallop. ABDOMEN: Soft, nontender, nondistended, normoactive bowel sounds, no guarding, no rebound, no hepatosplenomegaly, no masses. EXTREMITIES: 2+ pulses, warm, well-perfused, no edema. NEUROLOGICAL: He is alert awake but confused moving all extremities Laboratory Results - last 24 hr 11/04/19 11/06/19 05:30 11:24 POC Glucometer 227 COVID-19 (DESIRAE) Not detected Active Medications Generic Name Dose Route Start Last Admin Trade Name Freq PRN Reason Stop Dose Admin Albuterol Sulfate 2 puff 11/01/19 17:33 11/01/19 18:22 Ventolin Hfa Inhaler - IH 2 puff Q4H PRN Administration SHORT OF BREATH/WHEEZING Apixaban 5 mg 11/01/19 10:00 11/06/19 10:19 Eliquis - PO 5 mg BID NELSY Administration Atorvastatin Calcium 10 mg 11/01/19 22:00 11/05/19 21:13 Lipitor - PO Not Given HS NELSY Budesonide/Formoterol Fumarate 2 puff 11/01/19 22:00 11/06/19 10:20 Symbicort 80/4.5mcg - IH 2 puff BID NELSY Administration Furosemide 20 mg 11/02/19 10:00 11/06/19 10:19 Lasix - PO 20 mg DAILY NELSY Administration Gabapentin 100 mg 11/05/19 13:30 11/06/19 10:18 Neurontin - PO 100 mg DAILY NELSY Administration Ceftriaxone Sodium 1 gm/ 50 mls @ 200 mls/hr 11/01/19 10:00 11/06/19 10:20 Dextrose IVPB 200 mls/hr DAILY NELSY Administration Insulin Aspart 1 vial 10/31/19 22:00 11/06/19 11:25 Novolog Vial Sliding Scale - SQ 4 unit ACHS NELSY Administration Protocol Levothyroxine Sodium 100 mcg 11/02/19 07:00 11/06/19 06:04 Synthroid - PO 100 mcg AM [facility]SY Administration Metoprolol Succinate 50 mg 11/02/19 10:03 11/06/19 10:19 Toprol Xl - PO 50 mg DAILY [facility]SY Administration Spironolactone 25 mg 11/01/19 10:00 11/06/19 10:19 Aldactone - PO 25 mg DAILY [facility]SY Administration Thiamine HCl 250 mg 11/05/19 12:24 11/06/19 10:20 Vitamin B1 - PO 250 mg DAILY NELSY Administration ASSESSMENT/PLAN: 80 years old male admitted for UTI delirium. He also have a hypertension heart failure atrial fibrillation hyperlipidemia hypothyroidism and COPD. Plan He is on the antibiotic, ceftriaxone, continue fluids he is good the short-term rehab medication review done. Hypertension stable continue metoprolol Heart failure stable continue spironolactone It fibrillation stable continue Eliquis Neuropathy continue gabapentin. Hypothyroidism continue Synthroid. COPD nick nue budesonide inhaler. Visit type - Emergency Visit Emergency Visit: Yes ED Registration Date: 10/31/19 Care time: The patient presented to the Emergency Department on the above date and was hospitalized for further evaluation of their emergent condition. - New Patient This patient is new to me today: Yes Date on this admission: 11/06/19 - Critical Care Critical Care patient: No - Discharge Referral Referred to [facility] No - Medication Review Med list reviewed for High Risk Meds patients 65 and older: Yes
--- NOTE | 2019-11-06 16:12 | PN ---
Progress Note, Physician History of Present Illness: Pt remains alert and comfortable. Son at bedside states confusion seems to be relatively new but had a CVA. No cough/SOB noted on RA. Afebrile since yesterday afternoon. No other events reported. - Current Medication List Current Medications: Active Medications Albuterol Sulfate (Ventolin Hfa Inhaler -) 2 puff IH Q4H PRN PRN Reason: SHORT OF BREATH/WHEEZING Last Admin: 11/01/19 18:22 Dose: 2 puff Documented by: Apixaban (Eliquis -) 5 mg PO BID [facility] Last Admin: 11/06/19 10:19 Dose: 5 mg Documented by: Atorvastatin Calcium (Lipitor -) 10 mg PO HS [facility] Last Admin: 11/05/19 21:13 Dose: Not Given Documented by: Budesonide/Formoterol Fumarate (Symbicort 80/4.5mcg -) 2 puff IH BID [facility] Last Admin: 11/06/19 10:20 Dose: 2 puff Documented by: Furosemide (Lasix -) 20 mg PO DAILY [facility] Last Admin: 11/06/19 10:19 Dose: 20 mg Documented by: Gabapentin (Neurontin -) 100 mg PO DAILY [facility] Last Admin: 11/06/19 10:18 Dose: 100 mg Documented by: Ceftriaxone Sodium 1 gm/ (Dextrose) 50 mls @ 200 mls/hr IVPB DAILY [facility] Last Admin: 11/06/19 10:20 Dose: 200 mls/hr Documented by: Insulin Aspart (Novolog Vial Sliding Scale -) 1 vial SQ ACHS [facility]; Protocol Last Admin: 11/06/19 11:25 Dose: 4 unit Documented by: Levothyroxine Sodium (Synthroid -) 100 mcg PO AM [facility] Last Admin: 11/06/19 06:04 Dose: 100 mcg Documented by: Metoprolol Succinate (Toprol Xl -) 50 mg PO DAILY [facility] Last Admin: 11/06/19 10:19 Dose: 50 mg Documented by: Spironolactone (Aldactone -) 25 mg PO DAILY [facility] Last Admin: 11/06/19 10:19 Dose: 25 mg Documented by: Thiamine HCl (Vitamin B1 -) 250 mg PO DAILY [facility] Last Admin: 11/06/19 10:20 Dose: 250 mg Documented by: - Objective Vital Signs: Vital Signs Temperature 98.4 F 11/06/19 14:10 Pulse Rate 89 08/30/20 14:10 Respiratory Rate 20 11/06/19 14:10 Blood Pressure 143/73 11/06/19 14:10 O2 Sat by Pulse Oximetry (%) 94 L 11/06/19 14:10 Constitutional: Yes: No Distress, Calm Eyes: Yes: Conjunctiva Clear HENT: Yes: Atraumatic Cardiovascular: Yes: Regular Rate and Rhythm Respiratory: Yes: Regular Gastrointestinal: Yes: Normal Bowel Sounds, Soft Genitourinary: Yes: Other (diaper) Musculoskeletal: Yes: WNL Extremities: Yes: WNL Edema: No Integumentary: Yes: WNL Neurological: Yes: Alert, Confusion Labs: CBC, BMP 11/02/19 06:55 11/02/19 06:55 INR, PTT INR 1.13 (0.83-1.09) H 10/31/19 18:00 Laboratory Last Values WBC 8.9 K/mm3 (4.0-10.0) 11/02/19 06:55 RBC 4.35 M/mm3 (4.00-5.60) 11/02/19 06:55 Hgb 14.4 GM/dL (11.7-16.9) 11/02/19 06:55 Hct 43.4 % (35.4-49) 11/02/19 06:55 MCV 99.8 fl (80-96) H 11/02/19 06:55 MCH 33.1 pg (25.7-33.7) 11/02/19 06:55 MCHC 33.2 g/dl (32.0-35.9) 11/02/19 06:55 RDW 12.8 % (11.9-15.9) 11/02/19 06:55 Plt Count 226 K/MM3 (134-434) D 11/02/19 06:55 MPV 8.7 fl (7.5-11.1) 11/02/19 06:55 Absolute Neuts (auto) 7.1 K/mm3 (1.5-8.0) 11/02/19 06:55 Neutrophils % 80.1 % (42.8-82.8) 11/02/19 06:55 Lymphocytes % 11.0 % (8-40) 11/02/19 06:55 Monocytes % 8.0 % (3.8-10.2) 11/02/19 06:55 Eosinophils % 0.7 % (0-4.5) D 11/02/19 06:55 Basophils % 0.2 % (0-2.0) 11/02/19 06:55 Nucleated RBC % 0 % (0-0) 11/02/19 06:55 PT with INR 13.30 SEC (9.7-13.0) H 10/31/19 18:00 INR 1.13 (0.83-1.09) H 10/31/19 18:00 PTT (Actin FS) 30.5 SECONDS (25.2-36.5) 10/31/19 18:00 Sodium 139 mmol/L (136-145) 11/02/19 06:55 Potassium 4.6 mmol/L (3.5-5.1) 11/02/19 06:55 Chloride 103 mmol/L (98-107) 11/02/19 06:55 Carbon Dioxide 28 mmol/L (21-32) 11/02/19 06:55 Anion Gap 8 MMOL/L (8-16) 11/02/19 06:55 BUN 18.0 mg/dL (7-18) 11/02/19 06:55 Creatinine 1.1 mg/dL (0.55-1.3) 11/02/19 06:55 Est GFR (CKD-EPI)AfAm 69.10 11/02/19 06:55 Est GFR (CKD-EPI)NonAf 59.62 11/02/19 06:55 POC Glucometer 227 UNITS (80-120) 11/06/19 11:24 Random Glucose 159 mg/dL (74-106) H 11/02/19 06:55 Hemoglobin A1c % 6.4 % (4.2-6.3) H 11/01/19 11:20 Lactic Acid 1.0 mmol/L (0.4-2.0) 11/01/19 00:15 Calcium 9.2 mg/dL (8.5-10.1) 11/02/19 06:55 Phosphorus 2.9 mg/dL (2.5-4.9) 11/02/19 06:55 Magnesium 2.0 mg/dL (1.8-2.4) 11/02/19 06:55 Total Bilirubin 1.3 mg/dL (0.2-1) H 11/02/19 06:55 AST 23 U/L (15-37) 11/02/19 06:55 ALT 21 U/L (13-61) 11/02/19 06:55 Alkaline Phosphatase 98 U/L (45-117) 11/02/19 06:55 Ammonia 26.90 umol/L (11-32) 11/02/19 06:55 Creatine Kinase 81 U/L (26-308) 10/31/19 18:00 Troponin I < 0.02 ng/ml (0.00-0.05) 10/31/19 18:00 Total Protein 7.8 g/dl (6.4-8.2) 11/02/19 06:55 Albumin 3.6 g/dl (3.4-5.0) 11/02/19 06:55 Triglycerides 76 mg/dL (0-150) 11/01/19 11:20 Cholesterol 139 mg/dL (50-200) 11/01/19 11:20 Total LDL Cholesterol 80 mg/dL (5-100) 11/01/19 11:20 HDL Cholesterol 48 mg/dL (40-60) 11/01/19 11:20 Vitamin B12 631 pg/ml (193-986) 11/01/19 11:20 Serum Folate 16 ng/mL (3.1-17.5) 11/01/19 11:20 TSH 2.12 uIU/ml (0.358-3.74) D 11/01/19 11:20 Urine Color Yellow 10/31/19 15:30 Urine Appearance Clear 10/31/19 15:30 Urine pH 6.5 (5.0-8.0) D 10/31/19 15:30 Ur Specific [place] 1.020 (1.010-1.035) 10/31/19 15:30 Urine Protein 3+ (NEGATIVE) H 10/31/19 15:30 Urine Glucose (UA) Negative (NEGATIVE) 10/31/19 15:30 Urine Ketones Negative (NEGATIVE) 10/31/19 15:30 Urine Blood Trace (NEGATIVE) 10/31/19 15:30 Urine Nitrite Negative (NEGATIVE) 10/31/19 15:30 Urine Bilirubin Negative (NEGATIVE) 10/31/19 15:30 Urine Urobilinogen 1.0 mg/dL (0.2-1.0) 10/31/19 15:30 Ur Leukocyte Esterase 2+ (NEGATIVE) H 10/31/19 15:30 Urine WBC (Auto) 467 /uL (0-25.8) 10/31/19 15:30 Urine RBC (Auto) 49 /uL (0-23.9) 10/31/19 15:30 Urine Casts (Auto) 3 /uL (0-3.1) 10/31/19 15:30 U Epithel Cells (Auto) >36 /uL (0-25.1) 10/31/19 15:30 Urine Bacteria (Auto) 66 /uL (0-1359) 10/31/19 15:30 Alcohol, Quantitative < 3 mg/dL (0.0-5.0) 10/31/19 18:00 Syphilis Serology Non-reactive (NONREACTIVE) 11/01/19 11:20 COVID-19 (DESIRAE) Not detected (Not Detected) 11/04/19 05:30 Blood Type A POSITIVE 10/31/19 18:00 Antibody Screen Negative 10/31/19 18:00 Microbiology 10/31/19 17:00 Urine - Urine - Catheterized Urine Culture - Final Staphylococcus Warneri Problem List - Problems (1) AMS (altered mental status) Code(s): R41.82 - ALTERED MENTAL STATUS, UNSPECIFIED (2) UTI (urinary tract infection) Code(s): N39.0 - URINARY TRACT INFECTION, SITE NOT SPECIFIED Qualifiers: (3) Atrial fibrillation Code(s): I48.91 - UNSPECIFIED ATRIAL FIBRILLATION Qualifiers: Atrial fibrillation type: chronic (4) HLD (hyperlipidemia) Code(s): E78.5 - HYPERLIPIDEMIA, UNSPECIFIED (5) HTN (hypertension) Code(s): I10 - ESSENTIAL (PRIMARY) HYPERTENSION (6) Hypothyroid Code(s): E03.9 - HYPOTHYROIDISM, UNSPECIFIED Assessment/Plan AMS UTI AFIB s/p CVA HTN -- d/c Ceftriaxone, repeat Urine cx (coag neg staph possible contaminant), will give Vancomycin x 1 dose -- repeat cbc/bmp -- afebrile since yesterday, vitals stable -- remains AAO x 1 but comfortable continue monitor
[2019-11-06] MEDS ORDERED: VANCOMYCIN 1 GRAM (PRE-DOCKED) 1,000 MG/250 ML BAG IVPB ONE (17:15)
[2019-11-06] MEDS ORDERED: ACETAMINOPHEN 1000 MG/100 ML VIAL (NON FORMULARY) IVPB ONE (21:08)
[2019-11-06] MEDS: ATORVASTATIN CA 10 MG TABLET (FP) PO SCH (22:40)
[2019-11-07] MEDS: INSULIN SLIDING SCALE (NOVOLOG) 1 VIAL SQ SCH ×4 (06:00→21:17)
[2019-11-07] MEDS: LEVOTHYROXINE NA 100 MCG TABLET (FP) PO SCH (06:01)
[2019-11-07 07:27] LABS: BASO % 0.3 % (0-2.0); EOS % 1.7 % (0-4.5); HEMATOCRIT 38.3 % (35.4-49); LYMPH % 9.6 % (8-40); MCH 33.6 pg (25.7-33.7); MEAN PLT VOLUME 8.9 fl (7.5-11.1); MONO % 12.1 % (3.8-10.2); NEUT % 76.3 % (42.8-82.8); PLATELET COUNT 206 K/MM3 (134-434); RBC 3.87 M/mm3 (4.00-5.60); RDW 12.5 % (11.9-15.9); WHITE BLOOD COUNT 9.7 K/mm3 (4.0-10.0)
[2019-11-07 08:17] LABS: BLOOD UREA NITROGEN 27.8 mg/dL (7-18); CALCIUM 8.9 mg/dL (8.5-10.1); CREATININE 1.2 mg/dL (0.55-1.3); POTASSIUM 4.6 mmol/L (3.5-5.1)
[2019-11-07] MEDS: FUROSEMIDE 20 MG TABLET (FP) PO SCH (10:42)
[2019-11-07] MEDS: APIXABAN 5 MG TABLET PO SCH ×2 (10:42→21:05)
[2019-11-07] MEDS: metoPROLOL SUCCINATE 25 MG TAB.SR.24H (FP) PO SCH (10:42)
[2019-11-07] MEDS: SPIRONOLACTONE 25 MG TABLET PO SCH (10:42)
[2019-11-07] MEDS: GABAPENTIN 100 MG CAPSULE PO SCH (10:43)
[2019-11-07] MEDS: THIAMINE HCL 100 MG TABLET (FP) PO SCH (10:43)
[2019-11-07] MEDS: BUDESONIDE/FORMETEROL FUMARATE 80/4.5 mcg INHALER IH SCH ×2 (10:44→21:06)
--- NOTE | 2019-11-07 11:17 | PN ---
Progress Note, [facility] [employer] - Note Progress Note: Selected Entries 11/03/19 11/03/19 11/04/19 15:00 19:27 05:41 Breakfast 100% Diet Tolerated Well Well Lunch 50% Supper 100% Temperature 97.7 F Pulse Rate 86 Blood Pressure 141/86 11/04/19 10:00 Breakfast Diet Tolerated Lunch Supper Temperature 98.2 F Pulse Rate 80 Blood Pressure 114/68 Selected Entries 11/05/19 11/05/19 11/05/19 06:00 11:24 14:04 Breakfast 100% Diet Tolerated Well Well Well Lunch 75% Temperature Pulse Rate Blood Pressure 11/06/19 11/06/19 11/07/19 10:49 15:17 06:00 Breakfast 100% Diet Tolerated Well Refused Lunch 0 Temperature 98.1 F Pulse Rate 84 Blood Pressure 134/74 11/07/19 10:00 Breakfast Diet Tolerated Lunch Temperature 98 F Pulse Rate 72 Blood Pressure 129/74 Laboratory Tests 11/07/19 06:47 WBC 9.7 Tolerating dys ground/thin liquid diet. Intermittent acceptance per emr. Reviewed with nursing. Tolerating diet. MBS not indicated at this time.
--- NOTE | 2019-11-07 11:44 | PN ---
Progress Note (short form) - Note Progress Note: s: no distress no CP/SOB/palps History of Present Illness: Current Medications Generic Name Dose Route Start Last Admin Trade Name Freq PRN Reason Stop Dose Admin Albuterol Sulfate 2 puff 11/01/19 17:33 11/01/19 18:22 Ventolin Hfa Inhaler - IH 2 puff Q4H PRN Administration SHORT OF BREATH/WHEEZING Apixaban 5 mg 11/01/19 10:00 11/07/19 10:42 Eliquis - PO 5 mg BID NELSY Administration Atorvastatin Calcium 10 mg 11/01/19 22:00 11/06/19 22:40 Lipitor - PO 10 mg HS NELSY Administration Budesonide/Formoterol Fumarate 2 puff 11/01/19 22:00 11/07/19 10:44 Symbicort 80/4.5mcg - IH 2 puff BID NELSY Administration Furosemide 20 mg 11/02/19 10:00 11/07/19 10:42 Lasix - PO 20 mg DAILY NELSY Administration Gabapentin 100 mg 11/05/19 13:30 11/07/19 10:43 Neurontin - PO 100 mg DAILY NELSY Administration Insulin Aspart 1 vial 10/31/19 22:00 11/07/19 06:00 Novolog Vial Sliding Scale - SQ Not Given [facility]S [facility] Protocol Levothyroxine Sodium 100 mcg 11/02/19 07:00 11/07/19 06:01 Synthroid - PO 100 mcg AM NELSY Administration Metoprolol Succinate 50 mg 11/02/19 10:03 11/07/19 10:42 Toprol Xl - PO 50 mg DAILY NELSY Administration Spironolactone 25 mg 11/01/19 10:00 11/07/19 10:42 Aldactone - PO 25 mg DAILY NELSY Administration Thiamine HCl 250 mg 11/05/19 12:24 11/07/19 10:43 Vitamin B1 - PO 250 mg DAILY NELSY Administration Vital Signs Period Temp Pulse Resp BP Sys/Yañez Pulse Ox Last 24 Hr 98 F-98.4 F 72-89 19-20 129-155/69-78 94-98 Constitutional: Yes: No Distress, Calm Cardiovascular: Yes: Pulse Irregular Respiratory: Yes: Rhonchi Gastrointestinal: Yes: Soft (nt) Edema: No Neurological: Yes: Alert, Oriented ...Motor Strength: WNL no jaundice diaphoresis Labs: CBC, BMP 11/07/19 06:47 11/07/19 06:47 - ....Imaging EKG: Image Reviewed Assessment/Plan a/p: 88 yo with h/o 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, non-obstructive cad, mod MR, afib with h/o cva (on eliquis), htn, hl, s/p remote LE bypass in setting of LE trauma, hypothyroid, BPH, prior heavy alcohol use, folate deficiency anemia, h/o throat CA s/p XRT, here with ams and UTI ams: + UTI -abx as per primary team -psych evaluating non-obstructive cad: -no signs acs - ASA stopped as he is on full AC and risk of bleeding in this age group is elevated -cont statin, bb 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
--- NOTE | 2019-11-07 12:06 | PN ---
Progress Note, Physician History of Present Illness: continues to be confused but stable - Current Medication List Current Medications: Active Medications Albuterol Sulfate (Ventolin Hfa Inhaler -) 2 puff IH Q4H PRN PRN Reason: SHORT OF BREATH/WHEEZING Last Admin: 11/01/19 18:22 Dose: 2 puff Documented by: Apixaban (Eliquis -) 5 mg PO BID [facility] Last Admin: 11/07/19 10:42 Dose: 5 mg Documented by: Atorvastatin Calcium (Lipitor -) 10 mg PO HS [facility] Last Admin: 11/06/19 22:40 Dose: 10 mg Documented by: Budesonide/Formoterol Fumarate (Symbicort 80/4.5mcg -) 2 puff IH BID [facility] Last Admin: 11/07/19 10:44 Dose: 2 puff Documented by: Furosemide (Lasix -) 20 mg PO DAILY [facility] Last Admin: 11/07/19 10:42 Dose: 20 mg Documented by: Gabapentin (Neurontin -) 100 mg PO DAILY [facility] Last Admin: 11/07/19 10:43 Dose: 100 mg Documented by: Insulin Aspart (Novolog Vial Sliding Scale -) 1 vial SQ [facility]; Protocol Last Admin: 11/07/19 11:54 Dose: 2 unit Documented by: Levothyroxine Sodium (Synthroid -) 100 mcg PO AM [facility] Last Admin: 11/07/19 06:01 Dose: 100 mcg Documented by: Metoprolol Succinate (Toprol Xl -) 50 mg PO DAILY [facility] Last Admin: 11/07/19 10:42 Dose: 50 mg Documented by: Spironolactone (Aldactone -) 25 mg PO DAILY [facility] Last Admin: 11/07/19 10:42 Dose: 25 mg Documented by: Thiamine HCl (Vitamin B1 -) 250 mg PO DAILY [facility] Last Admin: 11/07/19 10:43 Dose: 250 mg Documented by: - Objective Vital Signs: Vital Signs Temperature 98 F 11/07/19 10:00 Pulse Rate 72 11/07/19 10:00 Respiratory Rate 19 11/07/19 10:00 Blood Pressure 129/74 11/07/19 10:00 O2 Sat by Pulse Oximetry (%) 95 11/07/19 10:00 Constitutional: Yes: No Distress, Calm Cardiovascular: Yes: S1, S2 Respiratory: Yes: Regular, CTA Bilaterally Gastrointestinal: Yes: Normal Bowel Sounds, Soft Musculoskeletal: Yes: WNL Extremities: Yes: Erythema, Other Neurological: Yes: Alert, Confusion Psychiatric: Yes: Other Labs: CBC, BMP 11/07/19 06:47 11/07/19 06:47 INR, PTT INR 1.13 (0.83-1.09) H 10/31/19 18:00 Assessment/Plan Problem List - Problems (1) AMS (altered mental status) Code(s): R41.82 - ALTERED MENTAL STATUS, UNSPECIFIED (2) UTI (urinary tract infection) Code(s): N39.0 - URINARY TRACT INFECTION, SITE NOT SPECIFIED Qualifiers: (3) Atrial fibrillation Code(s): I48.91 - UNSPECIFIED ATRIAL FIBRILLATION Qualifiers: Atrial fibrillation type: chronic (4) HLD (hyperlipidemia) Code(s): E78.5 - HYPERLIPIDEMIA, UNSPECIFIED (5) HTN (hypertension) Code(s): I10 - ESSENTIAL (PRIMARY) HYPERTENSION (6) Hypothyroid Code(s): E03.9 - HYPOTHYROIDISM, UNSPECIFIED Assessment/Plan AMS UTI AFIB s/p CVA HTN continue to monitor off of abx nutrition asp precautions physio rest as per the team
[2019-11-07] MEDS: FAMOTIDINE 20 MG TABLET PO SCH (14:36)
[2019-11-07] MEDS ORDERED: ACETAMINOPHEN 1000 MG/100 ML VIAL (NON FORMULARY) IVPB ONE (15:56)
[2019-11-07] MEDS ORDERED: ACETAMINOPHEN 325 MG TABLET (FP) PO PRN (16:00)
[2019-11-07] MEDS ORDERED: AMPICILLIN NA/SULBACTAM NA 1.5 GM VIAL ONE ×2 (16:19→20:43)
[2019-11-07] MEDS ORDERED: SODIUM CHLORIDE 100 ML IVPB ONE ×2 (16:20→20:44)
[2019-11-07] MEDS: COLCHICINE 0.6 MG TAB PO SCH (16:23)
[2019-11-07] MEDS: AMPICILLIN NA/SULBACTAM NA 1.5 GM in SODIUM CHLORIDE 100 ML IVPB SCH ×2 (16:53→21:05)
--- NOTE | 2019-11-07 19:27 | PN ---
Physical Exam: SUBJECTIVE: Patient seen and examined. Ot, still confused this AM. Pt. endorses tenderness in toes. Pt. awaiting placement at [place]. OBJECTIVE: Vital Signs Period Temp Pulse Resp BP Sys/Yañez Pulse Ox Last 24 Hr 97.8 F-98.1 F 72-93 19-20 110-155/57-78 95-98 GENERAL: The patient is A&O x 1, in no acute distress. HEAD: Normal with no signs of trauma. EYES: Sclera anicteric, conjunctiva clear. ENT: Dry mucous membranes. LUNGS: Breath sounds equal, clear to auscultation bilaterally anteriorly, no wheezes, no crackles, no accessory muscle use. HEART: Regular rate and rhythm, S1, S2 without murmur ABDOMEN: Soft, obese, nontender, nondistended but protuberant, dull to percussion with fluid wave, normoactive bowel sounds, no guarding, no rebound EXTREMITIES: 2+ dorsal pedal pulses , warm, well-perfused, toes TTP, erythematous NEUROLOGICAL: Normal speech, gait not observed. PSYCH: Normal mood, normal affect. SKIN: Warm, dry, normal turgor, no rashes or lesions noted Laboratory Results - last 24 hr 11/06/19 11/07/19 11/07/19 22:47 06:47 06:47 WBC 9.7 RBC 3.87 L Hgb 13.0 Hct 38.3 MCV 99.0 H MCH 33.6 MCHC 34.0 RDW 12.5 Plt Count 206 MPV 8.9 Absolute Neuts (auto) 7.4 Neutrophils % 76.3 Lymphocytes % 9.6 Monocytes % 12.1 H Eosinophils % 1.7 D Basophils % 0.3 Nucleated RBC % 0 Sodium 138 Potassium 4.6 Chloride 100 Carbon Dioxide 31 Anion Gap 7 L BUN 27.8 H Creatinine 1.2 Est GFR (CKD-EPI)AfAm 62.20 Est GFR (CKD-EPI)NonAf 53.67 POC Glucometer 173 Random Glucose 189 H Lactic Acid Uric Acid 8.0 H Calcium 8.9 Creatine Kinase 11/07/19 11/07/19 15:55 16:34 WBC RBC Hgb Hct MCV MCH MCHC RDW Plt Count MPV Absolute Neuts (auto) Neutrophils % Lymphocytes % Monocytes % Eosinophils % Basophils % Nucleated RBC % Sodium Potassium Chloride Carbon Dioxide Anion Gap BUN Creatinine Est GFR (CKD-EPI)AfAm Est GFR (CKD-EPI)NonAf POC Glucometer Random Glucose Lactic Acid 1.2 Uric Acid Calcium Creatine Kinase 48 Active Medications Generic Name Dose Route Start Last Admin Trade Name Freq PRN Reason Stop Dose Admin Acetaminophen 650 mg 11/07/19 16:00 Tylenol - PO Q6H PRN PAIN LEVEL 6-10 Albuterol Sulfate 2 puff 11/01/19 17:33 11/01/19 18:22 Ventolin Hfa Inhaler - IH 2 puff Q4H PRN Administration SHORT OF BREATH/WHEEZING Apixaban 5 mg 11/01/19 10:00 11/07/19 10:42 Eliquis - PO 5 mg BID NELSY Administration Atorvastatin Calcium 10 mg 11/01/19 22:00 11/06/19 22:40 Lipitor - PO 10 mg HS NELSY Administration Budesonide/Formoterol Fumarate 2 puff 11/01/19 22:00 11/07/19 10:44 Symbicort 80/4.5mcg - IH 2 puff BID NELSY Administration Colchicine 0.6 mg 11/07/19 14:00 11/07/19 16:23 Colcrys PO 0.6 mg DAILY NELSY Administration Famotidine 20 mg 11/07/19 13:15 11/07/19 14:36 Pepcid - PO 20 mg DAILY NELSY Administration Furosemide 20 mg 11/02/19 10:00 11/07/19 10:42 Lasix - PO 20 mg DAILY NELSY Administration Gabapentin 300 mg 11/08/19 10:00 Neurontin - PO DAILY NELSY Ampicillin Sodium/Sulbactam 100 mls @ 200 mls/hr 11/07/19 16:00 11/07/19 16:53 Sodium 1.5 gm/ Sodium Chloride IVPB 200 mls/hr Q6H-IV NELSY Administration Insulin Aspart 1 vial 10/31/19 22:00 11/07/19 17:02 Novolog Vial Sliding Scale - SQ Not Given ACHS [facility] Protocol Levothyroxine Sodium 100 mcg 11/02/19 07:00 11/07/19 06:01 Synthroid - PO 100 mcg AM NELSY Administration Metoprolol Succinate 50 mg 11/02/19 10:03 11/07/19 10:42 Toprol Xl - PO 50 mg DAILY NELSY Administration Spironolactone 25 mg 11/01/19 10:00 11/07/19 10:42 Aldactone - PO 25 mg DAILY NELSY Administration Thiamine HCl 250 mg 11/05/19 12:24 11/07/19 10:43 Vitamin B1 - PO 250 mg DAILY NELSY Administration ASSESSMENT/PLAN: Pt. is an 88 y.o. M w/ PMHx. of Afib on Eliquis, Hx. of CVA, HTN, HLD, Hypothyr oidism, HFrEF, and CAD presents to the ED with AMS. As per daughter, normally A&O x3 but then only oriented to name. In the ED, denies any complaint. Physical notable for mild suprapubic pain. Labs notable for UA(contaminated with multiple epithelial cells). Admitted for AMS, possibly 2/2 to UTI #Acute Metabolic encephalopathy --possibly 2/2 UTI -CTH: possible small chronic b/l cerebral (Left frontal, left occipital and Right parietal) infarcts. Note is again made of a 2cm full-thickeness perforation of the cartilaginous nasal septum -MRI brain: no acute infarct -Serum EtOH <3 -UA: protein 3+, LE 2+, WBC 467, bact 66; epith >36 -UCX Negative to date -RPR Negative -TSH wnl -Ceftriaxone completed -Abd. US positive for multiple right renal cyss and gall stones without evidence of obstruction or cholecystitis. -NH3: 27 -PRN Haldol for agitation (QTc: 567) -Psych consult appreciated as Pt. now with reported visual hallucinations -Start and D/c with Thiamine 100mg daily #Acute Gout Flare -elevated Uric acid -started Colchicine -started Unasyn as we cannot r/o developing cellulitis #Hx. of CVA --not documented in chart - start ASA 81, c/w Pravastatin 10 #Chronic Afib - c/w home eliquis - Metoprolol increased to 50mg - Cardiology consult appreciated #HFrEF --not in exacerbation - Echo(11/18/16): mod-severed reduced LV systolic function LVEF 45.6%, mod global hypokinesis of the LV. RA is mod-severely dilated. Moderate TR. RVSP 46mmHg - c/w home metoprolol, spironolactone and Lasix #FEN - No IVF, encourage PO intake - monitor electrolyts and replete as needed - Dysphagia chopped diet as Pt. does not have dentures with him, no MBS indicated at this time - Eliquis 5 mg BID Visit type - Emergency Visit Emergency Visit: Yes ED Registration Date: 10/31/19 Care time: The patient presented to the Emergency Department on the above date and was hospitalized for further evaluation of their emergent condition. - New Patient This patient is new to me today: No - Critical Care Critical Care patient: No - Discharge Referral Referred to [facility] No - Medication Review Med list reviewed for High Risk Meds patients 65 and older: Yes ATTENDING PHYSICIAN STATEMENT I saw and evaluated the patient. I reviewed the resident's note and discussed the case with the resident. I agree with the resident's findings and plan as documented. SUBJECTIVE: OBJECTIVE: ASSESSMENT AND PLAN:
[2019-11-07] MEDS: ATORVASTATIN CA 10 MG TABLET (FP) PO SCH (21:05)
[2019-11-08] MEDS ORDERED: SODIUM CHLORIDE 100 ML IVPB ONE ×3 (02:17→14:23)
[2019-11-08] MEDS ORDERED: AMPICILLIN NA/SULBACTAM NA 1.5 GM VIAL ONE ×3 (02:17→14:23)
[2019-11-08] MEDS: AMPICILLIN NA/SULBACTAM NA 1.5 GM in SODIUM CHLORIDE 100 ML IVPB SCH ×3 (02:30→14:35)
[2019-11-08] MEDS: LEVOTHYROXINE NA 100 MCG TABLET (FP) PO SCH (06:15)
[2019-11-08] MEDS: INSULIN SLIDING SCALE (NOVOLOG) 1 VIAL SQ SCH ×4 (06:16→22:22)
[2019-11-08 07:32] LABS: BASO % 0.3 % (0-2.0); EOS % 2.3 % (0-4.5); HEMATOCRIT 37.3 % (35.4-49); HEMOGLOBIN 12.8 GM/dL (11.7-16.9); LYMPH % 12.1 % (8-40); MCH 34.1 pg (25.7-33.7); MCHC 34.2 g/dl (32.0-35.9); MEAN CELL VOLUME 99.5 fl (80-96); MEAN PLT VOLUME 9.6 fl (7.5-11.1); MONO % 11.2 % (3.8-10.2); NEUT % 74.1 % (42.8-82.8); PLATELET COUNT 212 K/MM3 (134-434); RBC 3.75 M/mm3 (4.00-5.60); RDW 12.5 % (11.9-15.9); WHITE BLOOD COUNT 7.7 K/mm3 (4.0-10.0)
[2019-11-08 07:42] LABS: BLOOD UREA NITROGEN 28.5 mg/dL (7-18); MAGNESIUM 2.1 mg/dL (1.8-2.4); POTASSIUM 4.2 mmol/L (3.5-5.1)
[2019-11-08] MEDS: APIXABAN 5 MG TABLET PO SCH ×2 (09:39→21:02)
[2019-11-08] MEDS: FUROSEMIDE 20 MG TABLET (FP) PO SCH (09:39)
[2019-11-08] MEDS: SPIRONOLACTONE 25 MG TABLET PO SCH (09:39)
[2019-11-08] MEDS: FAMOTIDINE 20 MG TABLET PO SCH (09:39)
[2019-11-08] MEDS: metoPROLOL SUCCINATE 25 MG TAB.SR.24H (FP) PO SCH (09:39)
[2019-11-08] MEDS: GABAPENTIN 300 MG CAPSULE PO SCH (09:39)
[2019-11-08] MEDS: COLCHICINE 0.6 MG TAB PO SCH (09:40)
[2019-11-08] MEDS: THIAMINE HCL 100 MG TABLET (FP) PO SCH (09:40)
[2019-11-08] MEDS: BUDESONIDE/FORMETEROL FUMARATE 80/4.5 mcg INHALER IH SCH ×2 (09:41→22:22)
--- NOTE | 2019-11-08 10:58 | PN ---
Progress Note, COMPLIANCE EXAMINER - Note Progress Note: Selected Entries 11/07/19 11/07/19 11/07/19 10:53 15:00 20:54 Breakfast 100% 100% Diet Tolerated Well Well Well Supper 50% Temperature Pulse Rate Blood Pressure 11/08/19 11/08/19 11/08/19 02:00 06:00 09:36 Breakfast Diet Tolerated Supper Temperature 98.3 F 98.5 F Pulse Rate 84 80 82 Blood Pressure 135/76 126/67 11/08/19 10:41 Breakfast 50% Diet Tolerated Well Supper Temperature Pulse Rate Blood Pressure Laboratory Tests 11/08/19 06:11 WBC 7.7 On Dys chopped diet. Enlive, Magic cup, Ensure pudding
--- NOTE | 2019-11-08 12:41 | PN ---
Progress Note (short form) - Note Progress Note: SUBJECTIVE: Seen and examined at bedside. Patient complaining of left foot pain. Redness noted on left great toe and second digit. Highly unlikely cellulitis, will discontinue antibiotics and observe off. OBJECTIVE Last Vital Signs Temp Pulse Resp BP Pulse Ox 98.5 F 82 20 126/67 95 11/08/19 09:36 11/08/19 09:36 11/08/19 09:36 11/08/19 09:36 11/08/19 09:36 PE: Per resident note Labs/Imaging: reviewed ASSESSMENT/PLAN 80-year-old female with past medical history of A. fib on Eliquis, CVA, hypertension, hyperlipidemia, hypothyroidism, heart failure with reduced ejection fraction presents with AMS. Found to have elevated white count and dehydration. #Acute metabolic encephalopathy Differential includes worsening vascular dementia from stroke, dehydration due to poor oral intake, and possible infection MRI brain no acute infarct UTI contaminated White count improving with antibiotics: Status post 7 days ceftriaxone Psych consult appreciated #Delirium Mostly at nighttime Start Seroquel 50 mg at bedtime #Acute gout flare On colchicine Discontinue Unasyn: Patient has no white count and physical exam is consistent with gout #Positive urinalysis Urinalysis was contaminated Status post 7 days ceftriaxone #History of CVA Continue pravastatin Aspirin discontinued as patient is on Eliquis and is high bleeding risk due to age #Chronic A. fib on Eliquis Continue home medications Cardiology on board #Heart failure with reduced ejection fraction: At baseline Continue home occasions Visit type - Emergency Visit Emergency Visit: Yes ED Registration Date: 10/31/19 Care time: The patient presented to the Emergency Department on the above date and was hospitalized for further evaluation of their emergent condition. - New Patient This patient is new to me today: Yes Date on this admission: 11/08/19 - Critical Care Critical Care patient: No - Medication Review Med list reviewed for High Risk Meds patients 65 and older: Yes
--- NOTE | 2019-11-08 12:53 | PN ---
Progress Note (short form) - Note Progress Note: cc: altered mental status s: no chest pain, palps, dizziness, dyspnea Current Medications Generic Name Dose Route Start Last Admin Trade Name Freq PRN Reason Stop Dose Admin Acetaminophen 650 mg 11/07/19 16:00 11/08/19 09:37 Tylenol - PO 650 mg Q6H PRN Administration PAIN LEVEL 6-10 Albuterol Sulfate 2 puff 11/01/19 17:33 11/01/19 18:22 Ventolin Hfa Inhaler - IH 2 puff Q4H PRN Administration SHORT OF BREATH/WHEEZING Apixaban 5 mg 11/01/19 10:00 11/08/19 09:39 Eliquis - PO 5 mg BID NELSY Administration Atorvastatin Calcium 10 mg 11/01/19 22:00 11/07/19 21:05 Lipitor - PO 10 mg HS NELSY Administration Budesonide/Formoterol Fumarate 2 puff 11/01/19 22:00 11/08/19 09:41 Symbicort 80/4.5mcg - IH 2 puff BID NELSY Administration Colchicine 0.6 mg 11/07/19 14:00 11/08/19 09:40 Colcrys PO 0.6 mg DAILY NELSY Administration Famotidine 20 mg 11/07/19 13:15 11/08/19 09:39 Pepcid - PO 20 mg DAILY NELSY Administration Furosemide 20 mg 11/02/19 10:00 11/08/19 09:39 Lasix - PO 20 mg DAILY NELSY Administration Gabapentin 300 mg 11/08/19 10:00 11/08/19 09:39 Neurontin - PO 300 mg DAILY NELSY Administration Ampicillin Sodium/Sulbactam 100 mls @ 200 mls/hr 11/07/19 16:00 11/08/19 09:37 Sodium 1.5 gm/ Sodium Chloride IVPB 200 mls/hr Q6H-IV NELSY Administration Insulin Aspart 1 vial 10/31/19 22:00 11/08/19 12:01 Novolog Vial Sliding Scale - SQ 2 unit ACHS NELSY Administration Protocol Levothyroxine Sodium 100 mcg 11/02/19 07:00 11/08/19 06:15 Synthroid - PO 100 mcg AM NELSY Administration Metoprolol Succinate 50 mg 11/02/19 10:03 11/08/19 09:39 Toprol Xl - PO 50 mg DAILY NELSY Administration Spironolactone 25 mg 11/01/19 10:00 11/08/19 09:39 Aldactone - PO 25 mg DAILY NELSY Administration Thiamine HCl 250 mg 11/05/19 12:24 11/08/19 09:40 Vitamin B1 - PO 250 mg DAILY NELSY Administration Vital Signs Period Temp Pulse Resp BP Sys/Yañez Pulse Ox Last 24 Hr 97.8 F-98.5 F 80-93 19-20 110-146/57-76 93-96 Constitutional: Yes: No Distress, Calm Cardiovascular: Yes: Pulse Irregular, nl s1, s2 Respiratory: CTAB Gastrointestinal: Yes: Soft (nt) Edema: No Neurological: Yes: Alert no jaundice diaphoresis not agitated Assessment/Plan a/p: 88 yo with h/o 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, non-obstructive cad, 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, afib with h/o cva (on eliquis), htn, hl, s/p remote LE bypass in setting of LE trauma, hypothyroid, BPH, prior heavy alcohol use, folate deficiency anemia, h/o throat CA s/p XRT, here with ams and UTI ams: + UTI -abx as per primary team -manage per psych non-obstructive cad: -no signs acs - ASA stopped as he is on eliquis -cont statin, bb 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
--- NOTE | 2019-11-08 13:16 | PN ---
Teaching Attending Note Name of Resident: Elliot Iniguez ATTENDING PHYSICIAN STATEMENT I saw and evaluated the patient. I reviewed the resident's note and discussed the case with the resident. I agree with the resident's findings and plan as documented. SUBJECTIVE: Patient seen and examined at bedside, c/o LLE pain in 1st/2nd digits, appears to be gout related, VSS. OBJECTIVE: GENERAL: The patient is awake and alert, NAD, engaging in conversation, AAox1 HEAD: Normal with no signs of trauma. EYES: Sclera anicteric, conjunctiva clear. ENT: Dry mucous membranes. LUNGS: Breath sounds equal, clear to auscultation bilaterally anteriorly, no wheezes, no crackles, no accessory muscle use. HEART: Regular rate and rhythm, S1, S2 without murmur ABDOMEN: Soft, obese, nontender, distended, normoactive bowel sounds, no guarding, no rebound EXTREMITIES: 2+ dorsal pedal pulses , warm, well-perfused, L 1st and 2nd digits w/ erythema/TTP/gout-like attack. NEUROLOGICAL: Normal speech, gait not observed. PSYCH: slightly confused, calm SKIN: Warm, dry, normal turgor, no rashes or lesions noted Vital Signs (72 hours) 11/05/19 11/05/19 11/05/19 14:04 17:51 21:00 Temperature 99.4 F 99 F Pulse Rate 99 H 88 Respiratory 18 21 H Rate Blood Pressure 137/84 139/80 O2 Sat by Pulse 94 L 93 L Oximetry (%) 11/05/19 11/06/19 11/06/19 22:00 03:28 06:00 Temperature 98.4 F 98.0 F 98.3 F Pulse Rate 86 71 92 H Respiratory 22 H 18 22 H Rate Blood Pressure 136/63 158/88 O2 Sat by Pulse 93 L 94 L Oximetry (%) 11/06/19 11/06/19 11/06/19 09:00 10:00 14:10 Temperature 98.4 F 98.4 F Pulse Rate 81 89 Respiratory 20 20 Rate Blood Pressure 148/80 143/73 O2 Sat by Pulse 94 L 94 L 94 L Oximetry (%) 11/06/19 11/06/19 11/06/19 17:09 21:00 22:00 Temperature 98.2 F 98.1 F Pulse Rate 84 86 Respiratory 20 20 20 Rate Blood Pressure 131/69 155/78 O2 Sat by Pulse 95 95 95 Oximetry (%) 11/07/19 11/07/19 11/07/19 06:00 09:00 10:00 Temperature 98.1 F 98 F Pulse Rate 84 72 Respiratory 20 19 Rate Blood Pressure 134/74 129/74 O2 Sat by Pulse 98 95 95 Oximetry (%) 11/07/19 11/07/19 11/07/19 14:00 18:00 21:00 Temperature 98 F 97.8 F Pulse Rate 93 H 85 Respiratory 20 19 Rate Blood Pressure 146/62 110/57 L O2 Sat by Pulse 96 93 L Oximetry (%) 11/07/19 11/08/19 11/08/19 21:03 02:00 06:00 Temperature 98.2 F 98.3 F Pulse Rate 88 84 80 Respiratory 20 20 20 Rate Blood Pressure 123/64 135/76 O2 Sat by Pulse 93 L 93 L Oximetry (%) 11/08/19 11/08/19 09:00 09:36 Temperature 98.5 F Pulse Rate 82 Respiratory 20 Rate Blood Pressure 126/67 O2 Sat by Pulse 95 95 Oximetry (%) Microbiology 11/06/19 17:00 Urine - Urine Clean Catch Urine Culture - Final NO GROWTH OBTAINED 10/31/19 17:00 Urine - Urine - Catheterized Urine Culture - Final Staphylococcus Warneri Laboratory Results - last 24 hr 11/07/19 11/07/19 11/07/19 06:47 15:55 16:34 WBC RBC Hgb Hct MCV MCH MCHC RDW Plt Count MPV Absolute Neuts (auto) Neutrophils % Lymphocytes % Monocytes % Eosinophils % Basophils % Nucleated RBC % Sodium 138 Potassium 4.6 Chloride 100 Carbon Dioxide 31 Anion Gap 7 L BUN 27.8 H Creatinine 1.2 Est GFR (CKD-EPI)AfAm 62.20 Est GFR (CKD-EPI)NonAf 53.67 POC Glucometer Random Glucose 189 H Lactic Acid 1.2 Uric Acid 8.0 H Calcium 8.9 Magnesium Creatine Kinase 54 48 11/08/19 11/08/19 11/08/19 06:11 06:11 11:59 WBC 7.7 RBC 3.75 L Hgb 12.8 Hct 37.3 MCV 99.5 H MCH 34.1 H MCHC 34.2 RDW 12.5 Plt Count 212 MPV 9.6 Absolute Neuts (auto) 5.7 Neutrophils % 74.1 Lymphocytes % 12.1 D Monocytes % 11.2 H Eosinophils % 2.3 Basophils % 0.3 Nucleated RBC % 0 Sodium 138 Potassium 4.2 Chloride 101 Carbon Dioxide 30 Anion Gap 8 BUN 28.5 H Creatinine 1.0 Est GFR (CKD-EPI)AfAm 77.54 Est GFR (CKD-EPI)NonAf 66.90 POC Glucometer 165 Random Glucose 120 H Lactic Acid Uric Acid Calcium 9.0 Magnesium 2.1 Creatine Kinase Home Medications Medication Instructions Recorded Apixaban [Eliquis] 5 mg PO DAILY 03/13/17 Lisinopril [Zestril] 5 mg PO DAILY 03/13/17 Metoprolol Succinate 25 mg PO DAILY 03/13/17 Spironolactone [Aldactone] 25 mg PO DAILY 03/13/17 Furosemide [Lasix] 20 mg PO DAILY 11/01/19 Ipratropium/Albuterol Sulfate 1 amp IH Q4H PRN 11/01/19 [Iprat-Albut 0.5-3(2.5) mg/3 ml] Levothyroxine [Synthroid -] 100 mcg PO DAILY 11/01/19 Pravastatin Sodium 10 mg PO HS 11/01/19 Current Medications Generic Name Dose Route Start Last Admin Trade Name Freq PRN Reason Stop Dose Admin Acetaminophen 650 mg 11/07/19 16:00 11/08/19 09:37 Tylenol - PO 650 mg Q6H PRN Administration PAIN LEVEL 6-10 Albuterol Sulfate 2 puff 11/01/19 17:33 11/01/19 18:22 Ventolin Hfa Inhaler - IH 2 puff Q4H PRN Administration SHORT OF BREATH/WHEEZING Apixaban 5 mg 11/01/19 10:00 11/08/19 09:39 Eliquis - PO 5 mg BID NELSY Administration Atorvastatin Calcium 10 mg 11/01/19 22:00 11/07/19 21:05 Lipitor - PO 10 mg HS NELSY Administration Budesonide/Formoterol Fumarate 2 puff 11/01/19 22:00 11/08/19 09:41 Symbicort 80/4.5mcg - IH 2 puff BID NELSY Administration Colchicine 0.6 mg 11/07/19 14:00 11/08/19 09:40 Colcrys PO 0.6 mg DAILY NELSY Administration Famotidine 20 mg 11/07/19 13:15 11/08/19 09:39 Pepcid - PO 20 mg DAILY NELSY Administration Furosemide 20 mg 11/02/19 10:00 11/08/19 09:39 Lasix - PO 20 mg DAILY NELSY Administration Gabapentin 300 mg 11/08/19 10:00 11/08/19 09:39 Neurontin - PO 300 mg DAILY NELSY Administration Ampicillin Sodium/Sulbactam 100 mls @ 200 mls/hr 11/07/19 16:00 11/08/19 09:37 Sodium 1.5 gm/ Sodium Chloride IVPB 200 mls/hr Q6H-IV NELSY Administration Insulin Aspart 1 vial 10/31/19 22:00 11/08/19 12:01 Novolog Vial Sliding Scale - SQ 2 unit ACHS NELSY Administration Protocol Levothyroxine Sodium 100 mcg 11/02/19 07:00 11/08/19 06:15 Synthroid - PO 100 mcg AM NELSY Administration Metoprolol Succinate 50 mg 11/02/19 10:03 11/08/19 09:39 Toprol Xl - PO 50 mg DAILY NELSY Administration Spironolactone 25 mg 11/01/19 10:00 11/08/19 09:39 Aldactone - PO 25 mg DAILY NELSY Administration Thiamine HCl 250 mg 11/05/19 12:24 11/08/19 09:40 Vitamin B1 - PO 250 mg DAILY NELSY Administration ASSESSMENT AND PLAN: 88 M New onset gout attack Hyperuricemia UTI Delirium 2/2 UTI HTN HFrEF Afib on Eliquis Prior Etoh abuse Etoh induced dementia HLD Hypothyroidism COVId negative COPD Plan: Restart abx w/ Unasyn to cover for LLE cellulitis, Colchicine started for gout attack, NSAIDs not advised due to age/HFrEF DC tele and downgrade MARY sent for [place], family refusing SNF now Frequent re-orientation, try to avoid psychtropic meds, light therapy, watch sundowning Cont. HF meds DVT ppx: Eliquis
--- NOTE | 2019-11-08 13:31 | PN ---
Progress Note, Physician History of Present Illness: stable redness of the foot probably gout - Current Medication List Current Medications: Active Medications Acetaminophen (Tylenol -) 650 mg PO Q6H PRN PRN Reason: PAIN LEVEL 6-10 Last Admin: 11/08/19 09:37 Dose: 650 mg Documented by: Albuterol Sulfate (Ventolin Hfa Inhaler -) 2 puff IH Q4H PRN PRN Reason: SHORT OF BREATH/WHEEZING Last Admin: 11/01/19 18:22 Dose: 2 puff Documented by: Apixaban (Eliquis -) 5 mg PO BID [facility] Last Admin: 11/08/19 09:39 Dose: 5 mg Documented by: Atorvastatin Calcium (Lipitor -) 10 mg PO HS [facility] Last Admin: 11/07/19 21:05 Dose: 10 mg Documented by: Budesonide/Formoterol Fumarate (Symbicort 80/4.5mcg -) 2 puff IH BID [facility] Last Admin: 11/08/19 09:41 Dose: 2 puff Documented by: Colchicine (Colcrys) 0.6 mg PO DAILY [facility] Last Admin: 11/08/19 09:40 Dose: 0.6 mg Documented by: Famotidine (Pepcid -) 20 mg PO DAILY [facility] Last Admin: 11/08/19 09:39 Dose: 20 mg Documented by: Furosemide (Lasix -) 20 mg PO DAILY [facility] Last Admin: 11/08/19 09:39 Dose: 20 mg Documented by: Gabapentin (Neurontin -) 300 mg PO DAILY [facility] Last Admin: 11/08/19 09:39 Dose: 300 mg Documented by: Ampicillin Sodium/Sulbactam (Sodium 1.5 gm/ Sodium Chloride) 100 mls @ 200 mls/hr IVPB Q6H-IV [facility] Last Admin: 11/08/19 09:37 Dose: 200 mls/hr Documented by: Insulin Aspart (Novolog Vial Sliding Scale -) 1 vial SQ ACHS [facility]; Protocol Last Admin: 11/08/19 12:01 Dose: 2 unit Documented by: Levothyroxine Sodium (Synthroid -) 100 mcg PO AM [facility] Last Admin: 11/08/19 06:15 Dose: 100 mcg Documented by: Metoprolol Succinate (Toprol Xl -) 50 mg PO DAILY [facility] Last Admin: 11/08/19 09:39 Dose: 50 mg Documented by: Spironolactone (Aldactone -) 25 mg PO DAILY [facility] Last Admin: 11/08/19 09:39 Dose: 25 mg Documented by: Thiamine HCl (Vitamin B1 -) 250 mg PO DAILY [facility] Last Admin: 11/08/19 09:40 Dose: 250 mg Documented by: - Objective Vital Signs: Vital Signs Temperature 98.5 F 11/08/19 09:36 Pulse Rate 82 11/08/19 09:36 Respiratory Rate 20 11/08/19 09:36 Blood Pressure 126/67 11/08/19 09:36 O2 Sat by Pulse Oximetry (%) 95 11/08/19 09:36 Constitutional: Yes: No Distress, Calm Cardiovascular: Yes: S1, S2 Respiratory: Yes: Regular, CTA Bilaterally Gastrointestinal: Yes: Normal Bowel Sounds, Soft Musculoskeletal: Yes: WNL Extremities: Yes: Other Neurological: Yes: Alert, Confusion Psychiatric: Yes: Other Labs: CBC, BMP 11/08/19 06:11 11/08/19 06:11 INR, PTT INR 1.13 (0.83-1.09) H 10/31/19 18:00 Assessment/Plan Problem List - Problems (1) AMS (altered mental status) Code(s): R41.82 - ALTERED MENTAL STATUS, UNSPECIFIED (2) UTI (urinary tract infection) Code(s): N39.0 - URINARY TRACT INFECTION, SITE NOT SPECIFIED Qualifiers: (3) Atrial fibrillation Code(s): I48.91 - UNSPECIFIED ATRIAL FIBRILLATION Qualifiers: Atrial fibrillation type: chronic (4) HLD (hyperlipidemia) Code(s): E78.5 - HYPERLIPIDEMIA, UNSPECIFIED (5) HTN (hypertension) Code(s): I10 - ESSENTIAL (PRIMARY) HYPERTENSION (6) Hypothyroid Code(s): E03.9 - HYPOTHYROIDISM, UNSPECIFIED Assessment/Plan AMS UTI AFIB s/p CVA HTN continue to monitor off of abx nutrition asp precautions physio rest as per the team
--- NOTE | 2019-11-08 17:35 | PN ---
Physical Exam: SUBJECTIVE: Patient seen and examined. No acute events overnight, Pili was NOT applied. OBJECTIVE: Vital Signs Period Temp Pulse Resp BP Sys/Yañez Pulse Ox Last 24 Hr 97.8 F-98.5 F 80-89 19-20 110-137/57-76 93-96 GENERAL: The patient is A&O x 1, in no acute distress. HEAD: Normal with no signs of trauma. EYES: Sclera anicteric, conjunctiva clear. ENT: Dry mucous membranes. LUNGS: Breath sounds equal, clear to auscultation bilaterally anteriorly, no wheezes, no crackles, no accessory muscle use. HEART: Regular rate and rhythm, S1, S2 without murmur ABDOMEN: Soft, obese, nontender, nondistended but protuberant, dull to percussion with fluid wave, normoactive bowel sounds, no guarding, no rebound EXTREMITIES: 2+ dorsal pedal pulses , warm, well-perfused, toes TTP, erythematous NEUROLOGICAL: Normal speech, gait not observed. PSYCH: Normal mood, normal affect. SKIN: Warm, dry, normal turgor, no rashes or lesions noted Laboratory Results - last 24 hr 11/07/19 11/08/19 11/08/19 06:47 06:11 06:11 WBC 7.7 RBC 3.75 L Hgb 12.8 Hct 37.3 MCV 99.5 H MCH 34.1 H MCHC 34.2 RDW 12.5 Plt Count 212 MPV 9.6 Absolute Neuts (auto) 5.7 Neutrophils % 74.1 Lymphocytes % 12.1 D Monocytes % 11.2 H Eosinophils % 2.3 Basophils % 0.3 Nucleated RBC % 0 Sodium 138 138 Potassium 4.6 4.2 Chloride 100 101 Carbon Dioxide 31 30 Anion Gap 7 L 8 BUN 27.8 H 28.5 H Creatinine 1.2 1.0 Est GFR (CKD-EPI)AfAm 62.20 77.54 Est GFR (CKD-EPI)NonAf 53.67 66.90 POC Glucometer Random Glucose 189 H 120 H Uric Acid 8.0 H Calcium 8.9 9.0 Magnesium 2.1 Creatine Kinase 54 11/08/19 11/08/19 11:59 16:59 WBC RBC Hgb Hct MCV MCH MCHC RDW Plt Count MPV Absolute Neuts (auto) Neutrophils % Lymphocytes % Monocytes % Eosinophils % Basophils % Nucleated RBC % Sodium Potassium Chloride Carbon Dioxide Anion Gap BUN Creatinine Est GFR (CKD-EPI)AfAm Est GFR (CKD-EPI)NonAf POC Glucometer 165 164 Random Glucose Uric Acid Calcium Magnesium Creatine Kinase Active Medications Generic Name Dose Route Start Last Admin Trade Name Freq PRN Reason Stop Dose Admin Acetaminophen 650 mg 11/07/19 16:00 11/08/19 09:37 Tylenol - PO 650 mg Q6H PRN Administration PAIN LEVEL 6-10 Albuterol Sulfate 2 puff 11/01/19 17:33 11/01/19 18:22 Ventolin Hfa Inhaler - IH 2 puff Q4H PRN Administration SHORT OF BREATH/WHEEZING Apixaban 5 mg 11/01/19 10:00 11/08/19 09:39 Eliquis - PO 5 mg BID [facility] Administration Atorvastatin Calcium 10 mg 11/01/19 22:00 11/07/19 21:05 Lipitor - PO 10 mg HS [facility] Administration Budesonide/Formoterol Fumarate 2 puff 11/01/19 22:00 11/08/19 09:41 Symbicort 80/4.5mcg - IH 2 puff BID [facility] Administration Colchicine 0.6 mg 11/07/19 14:00 11/08/19 09:40 Colcrys PO 0.6 mg DAILY [facility] Administration Famotidine 20 mg 11/07/19 13:15 11/08/19 09:39 Pepcid - PO 20 mg DAILY [facility] Administration Furosemide 20 mg 11/02/19 10:00 11/08/19 09:39 Lasix - PO 20 mg DAILY [facility] Administration Gabapentin 300 mg 11/08/19 10:00 11/08/19 09:39 Neurontin - PO 300 mg DAILY [facility] Administration Insulin Aspart 1 vial 10/31/19 22:00 11/08/19 17:00 Novolog Vial Sliding Scale - SQ 2 unit ACHS [facility] Administration Protocol Levothyroxine Sodium 100 mcg 11/02/19 07:00 11/08/19 06:15 Synthroid - PO 100 mcg AM [facility] Administration Metoprolol Succinate 50 mg 11/02/19 10:03 11/08/19 09:39 Toprol Xl - PO 50 mg DAILY [facility] Administration Spironolactone 25 mg 11/01/19 10:00 11/08/19 09:39 Aldactone - PO 25 mg DAILY [facility] Administration Thiamine HCl 250 mg 11/05/19 12:24 11/08/19 09:40 Vitamin B1 - PO 250 mg DAILY [facility] Administration ASSESSMENT/PLAN: Pt. is an 88 y.o. M w/ PMHx. of Afib on Eliquis, Hx. of CVA, HTN, HLD, Hypothyroidism, HFrEF, and CAD presents to the ED with AMS. As per daughter, normally A&O x3 but then only oriented to name. In the ED, denies any complaint. Physical notable for mild suprapubic pain. Labs notable for UA(contaminated with multiple epithelial cells). Admitted for AMS, possibly 2/2 to UTI #Acute Metabolic encephalopathy --possibly 2/2 hospital delirium -CTH: possible small chronic b/l cerebral (Left frontal, left occipital and Right parietal) infarcts. Note is again made of a 2cm full-thickeness perforation of the cartilaginous nasal septum -MRI brain: no acute infarct -Serum EtOH <3 -UA: protein 3+, LE 2+, WBC 467, bact 66; epith >36 -UCX Negative to date -RPR Negative -TSH wnl -Ceftriaxone completed -Abd. US positive for multiple right renal cysts and gall stones without evidence of obstruction or cholecystitis. -NH3: 27 -Would suggest starting Seroquel however daughter refused this medication. -Psych consult appreciated as Pt. now with reported visual hallucinations -Start and D/c with Thiamine 100mg daily #Acute Gout Flare -elevated Uric acid -started Colchicine -d/c Unasyn as low likelihood of superimposed cellulitis and Pt. completed 7 days of Ceftriaxone #Hx. of CVA --not documented in chart - c/w ASA 81 (started during this admission), c/w Pravastatin 10 #Chronic Afib -c/w home eliquis -Metoprolol increased to 50mg -Cardiology consult appreciated #HFrEF --not in exacerbation - Echo(11/18/16): mod-severed reduced LV systolic function LVEF 45.6%, mod global hypokinesis of the LV. RA is mod-severely dilated. Moderate TR. RVSP 46mmHg - c/w home metoprolol, spironolactone and Lasix #FEN - No IVF, encourage PO intake - monitor electrolyts and replete as needed - Dysphagia chopped diet as Pt. does not have dentures with him, no MBS indicated at this time - Eliquis 5 mg BID #Dispo Pt. pending acceptance for subacute rehab, can monitor in M/S (Transfer orders already in system) Visit type - Emergency Visit Emergency Visit: Yes ED Registration Date: 10/31/19 Care time: The patient presented to the Emergency Department on the above date and was hospitalized for further evaluation of their emergent condition. - New Patient This patient is new to me today: No - Critical Care Critical Care patient: No - Discharge Referral Referred to [facility] Med P.C.: No - Medication Review Med list reviewed for High Risk Meds patients 65 and older: Yes ATTENDING PHYSICIAN STATEMENT I saw and evaluated the patient. I reviewed the resident's note and discussed the case with the resident. I agree with the resident's findings and plan as documented. SUBJECTIVE: OBJECTIVE: ASSESSMENT AND PLAN:
[2019-11-08] MEDS: ATORVASTATIN CA 10 MG TABLET (FP) PO SCH (21:02)
[2019-11-09] MEDS: LEVOTHYROXINE NA 100 MCG TABLET (FP) PO SCH (06:20)
[2019-11-09] MEDS: INSULIN SLIDING SCALE (NOVOLOG) 1 VIAL SQ SCH ×4 (06:27→22:00)
[2019-11-09 08:09] LABS: HEMATOCRIT 39.3 % (35.4-49); HEMOGLOBIN 13.1 GM/dL (11.7-16.9); MCHC 33.4 g/dl (32.0-35.9); MEAN PLT VOLUME 9.3 fl (7.5-11.1); PLATELET COUNT 247 K/MM3 (134-434); RBC 3.97 M/mm3 (4.00-5.60); RDW 12.4 % (11.9-15.9); WHITE BLOOD COUNT 8.6 K/mm3 (4.0-10.0)
[2019-11-09 08:49] LABS: BLOOD UREA NITROGEN 26.1 mg/dL (7-18); CALCIUM 9.3 mg/dL (8.5-10.1); POTASSIUM 4.4 mmol/L (3.5-5.1)
[2019-11-09] MEDS: BUDESONIDE/FORMETEROL FUMARATE 80/4.5 mcg INHALER IH SCH ×2 (10:15→22:01)
[2019-11-09] MEDS ORDERED: PT OWN MED DRAWER 7, Y5N ONE (10:18)
[2019-11-09] MEDS: SPIRONOLACTONE 25 MG TABLET PO SCH (10:24)
[2019-11-09] MEDS: APIXABAN 5 MG TABLET PO SCH ×2 (10:25→21:59)
[2019-11-09] MEDS: metoPROLOL SUCCINATE 25 MG TAB.SR.24H (FP) PO SCH (10:25)
[2019-11-09] MEDS: GABAPENTIN 300 MG CAPSULE PO SCH (10:25)
[2019-11-09] MEDS: FUROSEMIDE 20 MG TABLET (FP) PO SCH (10:25)
[2019-11-09] MEDS: COLCHICINE 0.6 MG TAB PO SCH (10:25)
[2019-11-09] MEDS: FAMOTIDINE 20 MG TABLET PO SCH (10:25)
[2019-11-09] MEDS: THIAMINE HCL 100 MG TABLET (FP) PO SCH (10:25)
--- NOTE | 2019-11-09 12:27 | PN ---
Teaching Attending Note Name of Resident: Elliot Iniguez ATTENDING PHYSICIAN STATEMENT I saw and evaluated the patient. I reviewed the resident's note and discussed the case with the resident. I agree with the resident's findings and plan as documented. SUBJECTIVE: Seen and examined at bedside. Patient appears well, no complaints. O2 saturat ion noted to be decreasing, now 91%. Will get CXR. OBJECTIVE Last Vital Signs Temp Pulse Resp BP Pulse Ox 98.5 F 82 20 126/67 95 11/08/19 09:36 11/08/19 09:36 11/08/19 09:36 11/08/19 09:36 11/08/19 09:36 PE: Per resident note Labs/Imaging: reviewed ASSESSMENT/PLAN 80-year-old female with past medical history of A. fib on Eliquis, CVA, hypertension, hyperlipidemia, hypothyroidism, heart failure with reduced ejection fraction presents with AMS. Found to have elevated white count and dehydration. #Acute metabolic encephalopathy Differential includes worsening vascular dementia from stroke, dehydration due to poor oral intake, and possible infection MRI brain no acute infarct UTI contaminated White count improving with antibiotics: Status post 7 days ceftriaxone Psych consult appreciated #hypoxia -slowly worsening -check CXR -incentive spirometry #Delirium Mostly at nighttime Start Seroquel 50 mg at bedtime #Acute gout flare On colchicine Discontinue Unasyn: Patient has no white count and physical exam is consistent with gout #Positive urinalysis Urinalysis was contaminated Status post 7 days ceftriaxone #History of CVA Continue pravastatin Aspirin discontinued as patient is on Eliquis and is high bleeding risk due to age #Chronic A. fib on Eliquis Continue home medications Cardiology on board #Heart failure with reduced ejection fraction: At baseline Continue home occasions
--- NOTE | 2019-11-09 12:30 | PN ---
Progress Note (short form) - Note Progress Note: cc: altered mental status s: no chest pain, palps, dizziness, dyspnea Current Medications Generic Name Dose Route Start Last Admin Trade Name Freq PRN Reason Stop Dose Admin Acetaminophen 650 mg 11/07/19 16:00 11/08/19 09:37 Tylenol - PO 650 mg Q6H PRN Administration PAIN LEVEL 6-10 Albuterol Sulfate 2 puff 11/01/19 17:33 11/01/19 18:22 Ventolin Hfa Inhaler - IH 2 puff Q4H PRN Administration SHORT OF BREATH/WHEEZING Apixaban 5 mg 11/01/19 10:00 11/09/19 10:25 Eliquis - PO 5 mg BID [facility] Administration Atorvastatin Calcium 10 mg 11/01/19 22:00 11/08/19 21:02 Lipitor - PO 10 mg HS [facility] Administration Budesonide/Formoterol Fumarate 2 puff 11/01/19 22:00 11/09/19 10:15 Symbicort 80/4.5mcg - IH 2 puff BID [facility] Administration Colchicine 0.6 mg 11/07/19 14:00 11/09/19 10:25 Colcrys PO 0.6 mg DAILY [facility] Administration Famotidine 20 mg 11/07/19 13:15 11/09/19 10:25 Pepcid - PO 20 mg DAILY [facility] Administration Furosemide 20 mg 11/02/19 10:00 11/09/19 10:25 Lasix - PO 20 mg DAILY [facility] Administration Gabapentin 300 mg 11/08/19 10:00 11/09/19 10:25 Neurontin - PO 300 mg DAILY [facility] Administration Insulin Aspart 1 vial 10/31/19 22:00 11/09/19 11:51 Novolog Vial Sliding Scale - SQ 2 unit ACHS [facility] Administration Protocol Levothyroxine Sodium 100 mcg 11/02/19 07:00 11/09/19 06:20 Synthroid - PO 100 mcg AM [facility] Administration Metoprolol Succinate 50 mg 11/02/19 10:03 11/09/19 10:25 Toprol Xl - PO 50 mg DAILY [facility] Administration Spironolactone 25 mg 11/01/19 10:00 11/09/19 10:24 Aldactone - PO 25 mg DAILY [facility] Administration Thiamine HCl 250 mg 11/05/19 12:24 11/09/19 10:25 Vitamin B1 - PO 250 mg DAILY [facility] Administration Vital Signs Period Temp Pulse Resp BP Sys/Yañez Pulse Ox Last 24 Hr 97.6 F-98.1 F 79-98 20-24 127-170/70-90 91-94 Constitutional: Yes: No Distress, Calm Cardiovascular: Yes: Pulse Irregular, nl s1, s2 Respiratory: CTAB Gastrointestinal: Yes: Soft (nt) Edema: No Neurological: Yes: Alert no jaundice diaphoresis not agitated Assessment/Plan a/p: 88 yo with h/o 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, non-obstructive cad, 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, afib with h/o cva (on eliquis), htn, hl, s/p remote LE bypass in setting of LE trauma, hypothyroid, BPH, prior heavy alcohol use, folate deficiency anemia, h/o throat CA s/p XRT, here with ams and UTI ams: + UTI -abx as per primary team -manage per psych non-obstructive cad: -no signs acs - ASA stopped as he is on eliquis -cont statin, bb 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
--- NOTE | 2019-11-09 12:59 | PN ---
Progress Note, Physician History of Present Illness: stable no new issues - Current Medication List Current Medications: Active Medications Acetaminophen (Tylenol -) 650 mg PO Q6H PRN PRN Reason: PAIN LEVEL 6-10 Last Admin: 11/08/19 09:37 Dose: 650 mg Documented by: Albuterol Sulfate (Ventolin Hfa Inhaler -) 2 puff IH Q4H PRN PRN Reason: SHORT OF BREATH/WHEEZING Last Admin: 11/01/19 18:22 Dose: 2 puff Documented by: Apixaban (Eliquis -) 5 mg PO BID [facility] Last Admin: 11/09/19 10:25 Dose: 5 mg Documented by: Atorvastatin Calcium (Lipitor -) 10 mg PO HS [facility] Last Admin: 11/08/19 21:02 Dose: 10 mg Documented by: Budesonide/Formoterol Fumarate (Symbicort 80/4.5mcg -) 2 puff IH BID [facility] Last Admin: 11/09/19 10:15 Dose: 2 puff Documented by: Colchicine (Colcrys) 0.6 mg PO DAILY [facility] Last Admin: 11/09/19 10:25 Dose: 0.6 mg Documented by: Famotidine (Pepcid -) 20 mg PO DAILY [facility] Last Admin: 11/09/19 10:25 Dose: 20 mg Documented by: Furosemide (Lasix -) 20 mg PO DAILY [facility] Last Admin: 11/09/19 10:25 Dose: 20 mg Documented by: Gabapentin (Neurontin -) 300 mg PO DAILY [facility] Last Admin: 11/09/19 10:25 Dose: 300 mg Documented by: Insulin Aspart (Novolog Vial Sliding Scale -) 1 vial SQ [facility]; Protocol Last Admin: 11/09/19 11:51 Dose: 2 unit Documented by: Levothyroxine Sodium (Synthroid -) 100 mcg PO AM [facility] Last Admin: 11/09/19 06:20 Dose: 100 mcg Documented by: Metoprolol Succinate (Toprol Xl -) 50 mg PO DAILY [facility] Last Admin: 11/09/19 10:25 Dose: 50 mg Documented by: Spironolactone (Aldactone -) 25 mg PO DAILY [facility] Last Admin: 11/09/19 10:24 Dose: 25 mg Documented by: Thiamine HCl (Vitamin B1 -) 250 mg PO DAILY [facility] Last Admin: 11/09/19 10:25 Dose: 250 mg Documented by: - Objective Vital Signs: Vital Signs Temperature 98.1 F 11/09/19 10:00 Pulse Rate 98 H 11/09/19 10:00 Respiratory Rate 11/09/19 10:00 Blood Pressure 140/90 11/09/19 10:00 O2 Sat by Pulse Oximetry (%) 91 L 11/09/19 10:00 Constitutional: Yes: No Distress, Calm Cardiovascular: Yes: S1, S2 Respiratory: Yes: Regular, CTA Bilaterally Gastrointestinal: Yes: Normal Bowel Sounds, Soft Musculoskeletal: Yes: WNL Extremities: Yes: Other Neurological: Yes: Alert, Confusion Labs: CBC, BMP 11/09/19 07:00 11/09/19 07:00 INR, PTT INR 1.13 (0.83-1.09) H 10/31/19 18:00 Assessment/Plan Problem List - Problems (1) AMS (altered mental status) Code(s): R41.82 - ALTERED MENTAL STATUS, UNSPECIFIED (2) UTI (urinary tract infection) Code(s): N39.0 - URINARY TRACT INFECTION, SITE NOT SPECIFIED Qualifiers: (3) Atrial fibrillation Code(s): I48.91 - UNSPECIFIED ATRIAL FIBRILLATION Qualifiers: Atrial fibrillation type: chronic (4) HLD (hyperlipidemia) Code(s): E78.5 - HYPERLIPIDEMIA, UNSPECIFIED (5) HTN (hypertension) Code(s): I10 - ESSENTIAL (PRIMARY) HYPERTENSION (6) Hypothyroid Code(s): E03.9 - HYPOTHYROIDISM, UNSPECIFIED Assessment/Plan AMS UTI AFIB s/p CVA HTN continue to monitor off of abx nutrition asp precautions physio rest as per the team
--- NOTE | 2019-11-09 13:08 | PN ---
Progress Note, [employer] - Note Progress Note: More [id number], agitates easily. Staff report increasing difficulty swallowing, coughing intermittently on thin water, chewing yogurt with impaired shannon-pharyngeaol coordination CXR-improving ] Selected Entries 11/06/19 11/06/19 11/06/19 06:00 09:00 10:00 Breakfast Diet Tolerated Lunch Supper Temperature Pulse Rate Blood Pressure O2 Sat by Pulse 94 L 94 L 94 L Oximetry (%) Oxygen Delivery Room Air Method 11/06/19 11/06/19 11/06/19 14:10 17:09 21:00 Breakfast Diet Tolerated Lunch Supper Temperature Pulse Rate Blood Pressure O2 Sat by Pulse 94 L 95 95 Oximetry (%) Oxygen Delivery Room Air Method 11/06/19 11/07/19 11/07/19 22:00 06:00 09:00 Breakfast Diet Tolerated Lunch Supper Temperature Pulse Rate Blood Pressure O2 Sat by Pulse 95 98 95 Oximetry (%) Oxygen Delivery Room Air Method 11/07/19 11/07/19 11/07/19 10:00 18:00 21:00 Breakfast Diet Tolerated Lunch Supper Temperature Pulse Rate Blood Pressure O2 Sat by Pulse 95 96 93 L Oximetry (%) Oxygen Delivery Room Air Method 11/07/19 11/08/19 11/08/19 21:03 06:00 09:00 Breakfast Diet Tolerated Lunch Supper Temperature Pulse Rate Blood Pressure O2 Sat by Pulse 93 L 93 L 95 Oximetry (%) Oxygen Delivery Room Air Method 11/08/19 11/08/19 11/08/19 09:36 10:41 14:47 Breakfast 50% 50% Diet Tolerated Well Well Lunch 75% Supper Temperature Pulse Rate Blood Pressure O2 Sat by Pulse 95 Oximetry (%) Oxygen Delivery Method 11/08/19 11/08/19 11/08/19 18:00 20:16 21:00 Breakfast Diet Tolerated Well Lunch Supper 50% Temperature Pulse Rate Blood Pressure O2 Sat by Pulse 94 L 92 L Oximetry (%) Oxygen Delivery Room Air Method 11/08/19 11/09/19 11/09/19 21:35 06:00 09:00 Breakfast Diet Tolerated Lunch Supper Temperature 97.7 F Pulse Rate 91 H Blood Pressure 149/90 O2 Sat by Pulse 92 L 91 L 91 L Oximetry (%) Oxygen Delivery Room Air Method 11/09/19 10:00 Breakfast 100% Diet Tolerated Well Lunch Supper Temperature 98.1 F Pulse Rate 98 H Blood Pressure 140/90 O2 Sat by Pulse 91 L Oximetry (%) Oxygen Delivery Method Laboratory Tests 11/09/19 11/09/19 07:00 11:26 WBC 8.6 POC Glucometer 210 Please downgrade diet to Dys puree/nectar thick liquid, Magic cup, Ensure pudding, 2 mary HN
--- NOTE | 2019-11-09 14:44 | PN ---
Physical Exam: SUBJECTIVE: Patient seen and examined. OBJECTIVE: Vital Signs Period Temp Pulse Resp BP Sys/Yañez Pulse Ox Last 24 Hr 97.6 F-98.1 F 79-98 20-24 127-170/72-90 91-94 GENERAL: The patient is A&O x 1, in no acute distress. HEAD: Normal with no signs of trauma. EYES: Sclera anicteric, conjunctiva clear. ENT: Dry mucous membranes. LUNGS: Breath sounds equal, clear to auscultation bilaterally anteriorly, no wheezes, no crackles, no accessory muscle use. HEART: Regular rate and rhythm, S1, S2 without murmur ABDOMEN: Soft, obese, nontender, nondistended but protuberant, dull to percussion with fluid wave, normoactive bowel sounds, no guarding, no rebound EXTREMITIES: 2+ dorsal pedal pulses , warm, well-perfused, toes TTP, erythematous NEUROLOGICAL: Normal speech, gait not observed. PSYCH: Normal mood, normal affect. SKIN: Warm, dry, normal turgor, no rashes or lesions noted Laboratory Results - last 24 hr 11/08/19 11/09/19 11/09/19 16:59 07:00 07:00 WBC 8.6 RBC 3.97 L Hgb 13.1 Hct 39.3 MCV 99.0 H MCH 33.0 MCHC 33.4 RDW 12.4 Plt Count 247 MPV 9.3 Sodium 138 Potassium 4.4 Chloride 100 Carbon Dioxide 28 Anion Gap 10 BUN 26.1 H Creatinine 1.0 Est GFR (CKD-EPI)AfAm 77.54 Est GFR (CKD-EPI)NonAf 66.90 POC Glucometer 164 Random Glucose 123 H Calcium 9.3 11/09/19 11:26 WBC RBC Hgb Hct MCV MCH MCHC RDW Plt Count MPV Sodium Potassium Chloride Carbon Dioxide Anion Gap BUN Creatinine Est GFR (CKD-EPI)AfAm Est GFR (CKD-EPI)NonAf POC Glucometer 210 Random Glucose Calcium Active Medications Generic Name Dose Route Start Last Admin Trade Name Freq PRN Reason Stop Dose Admin Acetaminophen 650 mg 11/07/19 16:00 11/08/19 09:37 Tylenol - PO 650 mg Q6H PRN Administration PAIN LEVEL 6-10 Albuterol Sulfate 2 puff 11/01/19 17:33 11/01/19 18:22 Ventolin Hfa Inhaler - IH 2 puff Q4H PRN Administration SHORT OF BREATH/WHEEZING Apixaban 5 mg 11/01/19 10:00 11/09/19 10:25 Eliquis - PO 5 mg BID NELSY Administration Atorvastatin Calcium 10 mg 11/01/19 22:00 11/08/19 21:02 Lipitor - PO 10 mg HS NELSY Administration Budesonide/Formoterol Fumarate 2 puff 11/01/19 22:00 11/09/19 10:15 Symbicort 80/4.5mcg - IH 2 puff BID NELSY Administration Colchicine 0.6 mg 11/07/19 14:00 11/09/19 10:25 Colcrys PO 0.6 mg DAILY NELSY Administration Famotidine 20 mg 11/07/19 13:15 11/09/19 10:25 Pepcid - PO 20 mg DAILY NELSY Administration Furosemide 20 mg 11/02/19 10:00 11/09/19 10:25 Lasix - PO 20 mg DAILY NELSY Administration Gabapentin 300 mg 11/08/19 10:00 11/09/19 10:25 Neurontin - PO 300 mg DAILY NELSY Administration Insulin Aspart 1 vial 10/31/19 22:00 11/09/19 11:51 Novolog Vial Sliding Scale - SQ 2 unit ACHS NELSY Administration Protocol Levothyroxine Sodium 100 mcg 11/02/19 07:00 11/09/19 06:20 Synthroid - PO 100 mcg AM NELSY Administration Metoprolol Succinate 50 mg 11/02/19 10:03 11/09/19 10:25 Toprol Xl - PO 50 mg DAILY NELSY Administration Spironolactone 25 mg 11/01/19 10:00 11/09/19 10:24 Aldactone - PO 25 mg DAILY NELSY Administration Thiamine HCl 250 mg 11/05/19 12:24 11/09/19 10:25 Vitamin B1 - PO 250 mg DAILY NELSY Administration ASSESSMENT/PLAN: Pt. is an 88 y.o. M w/ PMHx. of Afib on Eliquis, Hx. of CVA, HTN, HLD, Hypothyroidism, HFrEF, and CAD presents to the ED with AMS. As per daughter, normally A&O x3 but then only oriented to name. In the ED, denies any complaint. Physical notable for mild suprapubic pain. Labs notable for UA(contaminated with multiple epithelial cells). Admitted for AMS, possibly 2/2 to UTI #Acute Metabolic encephalopathy --possibly 2/2 hospital delirium -CTH: possible small chronic b/l cerebral (Left frontal, left occipital and Right parietal) infarcts. Note is again made of a 2cm full-thickeness perforation of the cartilaginous nasal septum -MRI brain: no acute infarct -Serum EtOH <3 -UA: protein 3+, LE 2+, WBC 467, bact 66; epith >36 -UCX Negative to date -RPR Negative -TSH wnl -Ceftriaxone completed -Abd. US positive for multiple right renal cysts and gall stones without evidence of obstruction or cholecystitis. -NH3: 27 -Would suggest starting Seroquel however daughter refused this medication. -Psych consult appreciated as Pt. now with reported visual hallucinations -Start and D/c with Thiamine 100mg daily #Acute Gout Flare -elevated Uric acid -started Colchicine -d/c Unasyn as low likelihood of superimposed cellulitis and Pt. completed 7 days of Ceftriaxone #Hx. of CVA --not documented in chart - c/w ASA 81 (started during this admission), c/w Pravastatin 10 #Chronic Afib -c/w home eliquis -Metoprolol increased to 50mg -Cardiology consult appreciated #HFrEF --not in exacerbation - Echo(11/18/16): mod-severed reduced LV systolic function LVEF 45.6%, mod global hypokinesis of the LV. RA is mod-severely dilated. Moderate TR. RVSP 46mmHg - c/w home metoprolol, spironolactone and Lasix #FEN - No IVF, encourage PO intake - monitor electrolyts and replete as needed - Dysphagia chopped diet as Pt. does not have dentures with him, no MBS indicated at this time - Eliquis 5 mg BID #Dispo Pt. pending acceptance for subacute rehab, can monitor in M/S (Transfer orders already in system) Visit type - Emergency Visit Emergency Visit: Yes ED Registration Date: 10/31/19 Care time: The patient presented to the Emergency Department on the above date and was hospitalized for further evaluation of their emergent condition. - New Patient This patient is new to me today: No - Critical Care Critical Care patient: No - Discharge Referral Referred to [facility] Med [facility] No - Medication Review Med list reviewed for High Risk Meds patients 65 and older: Yes ATTENDING PHYSICIAN STATEMENT I saw and evaluated the patient. I reviewed the resident's note and discussed the case with the resident. I agree with the resident's findings and plan as documented. SUBJECTIVE: OBJECTIVE: ASSESSMENT AND PLAN:
[2019-11-09] MEDS: ATORVASTATIN CA 10 MG TABLET (FP) PO SCH (21:59)
[2019-11-10] MEDS: LEVOTHYROXINE NA 100 MCG TABLET (FP) PO SCH (06:01)
[2019-11-10] MEDS: INSULIN SLIDING SCALE (NOVOLOG) 1 VIAL SQ SCH ×4 (06:01→22:08)
--- NOTE | 2019-11-10 09:52 | PN ---
Progress Note, TEACHING AIDE - Note Progress Note: Selected Entries 11/09/19 11/09/19 11/09/19 10:00 13:38 15:00 Breakfast 100% Diet Tolerated Well Refused Refused Lunch 0 0 Supper Temperature Pulse Rate Blood Pressure 11/09/19 11/10/19 21:03 06:00 Breakfast Diet Tolerated Well Lunch Supper 100% Temperature 98.0 F Pulse Rate 88 Blood Pressure 140/88 Laboratory Tests 11/09/19 07:00 WBC 8.6 Downgraded to Dys puree/nectar with aspiration precautions- Doing quite well Aspiration precautions sign and recommendation sign posted for staff education
[2019-11-10] MEDS ORDERED: PT OWN MED DRAWER 7, Y5N ONE (10:07)
[2019-11-10] MEDS: COLCHICINE 0.6 MG TAB PO SCH (10:17)
[2019-11-10] MEDS: BUDESONIDE/FORMETEROL FUMARATE 80/4.5 mcg INHALER IH SCH ×2 (10:18→22:08)
[2019-11-10] MEDS: GABAPENTIN 300 MG CAPSULE PO SCH (10:18)
[2019-11-10] MEDS: APIXABAN 5 MG TABLET PO SCH ×2 (10:18→22:08)
[2019-11-10] MEDS: FUROSEMIDE 20 MG TABLET (FP) PO SCH (10:18)
[2019-11-10] MEDS: FAMOTIDINE 20 MG TABLET PO SCH (10:18)
[2019-11-10] MEDS: SPIRONOLACTONE 25 MG TABLET PO SCH (10:18)
[2019-11-10] MEDS: metoPROLOL SUCCINATE 25 MG TAB.SR.24H (FP) PO SCH (10:19)
[2019-11-10] MEDS: THIAMINE HCL 100 MG TABLET (FP) PO SCH (10:19)
--- NOTE | 2019-11-10 12:02 | PN ---
Progress Note (short form) - Note Progress Note: s: no distress no CP/SOB/palps History of Present Illness: Current Medications Current Medications Generic Name Dose Route Start Last Admin Trade Name Freq PRN Reason Stop Dose Admin Acetaminophen 650 mg 11/07/19 16:00 11/08/19 09:37 Tylenol - PO 650 mg Q6H PRN Administration PAIN LEVEL 6-10 Albuterol Sulfate 2 puff 11/01/19 17:33 11/01/19 18:22 Ventolin Hfa Inhaler - IH 2 puff Q4H PRN Administration SHORT OF BREATH/WHEEZING Apixaban 5 mg 11/01/19 10:00 11/10/19 10:18 Eliquis - PO 5 mg BID NELSY Administration Atorvastatin Calcium 10 mg 11/01/19 22:00 11/09/19 21:59 Lipitor - PO 10 mg HS NELSY Administration Budesonide/Formoterol Fumarate 2 puff 11/01/19 22:00 11/10/19 10:18 Symbicort 80/4.5mcg - IH 2 puff BID NELSY Administration Colchicine 0.6 mg 11/07/19 14:00 11/10/19 10:17 Colcrys PO 0.6 mg DAILY NELSY Administration Famotidine 20 mg 11/07/19 13:15 11/10/19 10:18 Pepcid - PO 20 mg DAILY NELSY Administration Furosemide 20 mg 11/02/19 10:00 11/10/19 10:18 Lasix - PO 20 mg DAILY NELSY Administration Gabapentin 300 mg 11/08/19 10:00 11/10/19 10:18 Neurontin - PO 300 mg DAILY NELSY Administration Insulin Aspart 1 vial 10/31/19 22:00 11/10/19 06:01 Novolog Vial Sliding Scale - SQ Not Given ACHS NELSY Protocol Levothyroxine Sodium 100 mcg 11/02/19 07:00 11/10/19 06:01 Synthroid - PO 100 mcg AM NELSY Administration Metoprolol Succinate 50 mg 11/02/19 10:03 11/10/19 10:19 Toprol Xl - PO Not Given DAILY NELSY Spironolactone 25 mg 11/01/19 10:00 11/10/19 10:18 Aldactone - PO 25 mg DAILY NELSY Administration Thiamine HCl 250 mg 11/05/19 12:24 11/10/19 10:19 Vitamin B1 - PO 250 mg DAILY NELSY Administration Vital Signs Period Temp Pulse Resp BP Sys/Yañez Pulse Ox Last 24 Hr 97.6 F-98.9 F 78-90 20-20 105-144/78-90 93-96 Constitutional: Yes: No Distress, Calm Cardiovascular: Yes: Pulse Irregular Respiratory: Yes: Rhonchi Gastrointestinal: Yes: Soft (nt) Edema: No Neurological: Yes: Alert, Oriented ...Motor Strength: WNL no jaundice diaphoresis Labs: CBC, BMP 11/09/19 07:00 11/09/19 07:00 - ....Imaging EKG: Image Reviewed Assessment/Plan a/p: 88 yo with h/o 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, non-obstructive cad, mod MR, afib with h/o cva (on eliquis), htn, hl, s/p remote LE bypass in setting of LE trauma, hypothyroid, BPH, prior heavy alcohol use, folate deficiency anemia, h/o throat CA s/p XRT, here with ams and UTI ams: + UTI -abx as per primary team -psych evaluating non-obstructive cad: -no signs acs - ASA stopped as he is on full AC and risk of bleeding in this age group is elevated -cont statin, bb 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
--- NOTE | 2019-11-10 12:25 | PN ---
Teaching Attending Note Name of Resident: Manda Mattson ATTENDING PHYSICIAN STATEMENT I saw and evaluated the patient. I reviewed the resident's note and discussed the case with the resident. I agree with the resident's findings and plan as documented. SUBJECTIVE: Seen and examined at bedside. Patient appears well, no complaints. Medically cleared for discharge to [facility] pending placement. OBJECTIVE Last Vital Signs Temp Pulse Resp BP Pulse Ox 98.9 F 89 20 105/79 96 11/10/19 10:00 11/10/19 10:00 11/10/19 10:00 11/10/19 10:00 11/10/19 10:00 PE: Per resident note Labs/Imaging: reviewed ASSESSMENT/PLAN 80-year-old female with past medical history of A. fib on Eliquis, CVA, hyperten [place], hyperlipidemia, hypothyroidism, heart failure with reduced ejection fraction presents with AMS. Found to have elevated white count and dehydration. #Acute metabolic encephalopathy Differential includes worsening vascular dementia from stroke, dehydration due to poor oral intake, and possible infection MRI brain no acute infarct UTI contaminated White count improving with antibiotics: Status post 7 days ceftriaxone Psych consult appreciated #hypoxia: resolved #Delirium Mostly at nighttime Start Seroquel 50 mg at bedtime #Acute gout flare On colchicine Discontinue Unasyn: Patient has no white count and physical exam is consistent with gout #Positive urinalysis Urinalysis was contaminated Status post 7 days ceftriaxone #History of CVA Continue pravastatin Aspirin discontinued as patient is on Eliquis and is high bleeding risk due to age #Chronic A. fib on Eliquis Continue home medications Cardiology on board #Heart failure with reduced ejection fraction: At baseline Continue home occasions Dispo: Medically cleared for discharge to [facility] pending placement.
--- NOTE | 2019-11-10 12:58 | PN ---
Progress Note, Physician History of Present Illness: stable still confusion exists but stable - Current Medication List Current Medications: Active Medications Acetaminophen (Tylenol -) 650 mg PO Q6H PRN PRN Reason: PAIN LEVEL 6-10 Last Admin: 11/08/19 09:37 Dose: 650 mg Documented by: Albuterol Sulfate (Ventolin Hfa Inhaler -) 2 puff IH Q4H PRN PRN Reason: SHORT OF BREATH/WHEEZING Last Admin: 11/01/19 18:22 Dose: 2 puff Documented by: Apixaban (Eliquis -) 5 mg PO BID [facility] Last Admin: 11/10/19 10:18 Dose: 5 mg Documented by: Atorvastatin Calcium (Lipitor -) 10 mg PO HS [facility] Last Admin: 11/09/19 21:59 Dose: 10 mg Documented by: Budesonide/Formoterol Fumarate (Symbicort 80/4.5mcg -) 2 puff IH BID [facility] Last Admin: 11/10/19 10:18 Dose: 2 puff Documented by: Colchicine (Colcrys) 0.6 mg PO DAILY [facility] Last Admin: 11/10/19 10:17 Dose: 0.6 mg Documented by: Famotidine (Pepcid -) 20 mg PO DAILY [facility] Last Admin: 11/10/19 10:18 Dose: 20 mg Documented by: Furosemide (Lasix -) 20 mg PO DAILY [facility] Last Admin: 11/10/19 10:18 Dose: 20 mg Documented by: Gabapentin (Neurontin -) 300 mg PO DAILY [facility] Last Admin: 11/10/19 10:18 Dose: 300 mg Documented by: Insulin Aspart (Novolog Vial Sliding Scale -) 1 vial SQ [facility]; Protocol Last Admin: 11/10/19 12:09 Dose: 4 unit Documented by: Levothyroxine Sodium (Synthroid -) 100 mcg PO AM [facility] Last Admin: 11/10/19 06:01 Dose: 100 mcg Documented by: Metoprolol Succinate (Toprol Xl -) 50 mg PO DAILY [facility] Last Admin: 11/10/19 10:19 Dose: Not Given Documented by: Spironolactone (Aldactone -) 25 mg PO DAILY [facility] Last Admin: 11/10/19 10:18 Dose: 25 mg Documented by: Thiamine HCl (Vitamin B1 -) 250 mg PO DAILY [facility] Last Admin: 09/03/20 10:19 Dose: 250 mg Documented by: - Objective Vital Signs: Vital Signs Temperature 98.9 F 11/10/19 10:00 Pulse Rate 89 11/10/19 10:00 Respiratory Rate 11/10/19 10:00 Blood Pressure 105/79 11/10/19 10:00 O2 Sat by Pulse Oximetry (%) 96 11/10/19 10:00 Constitutional: Yes: No Distress, Calm Cardiovascular: Yes: S1, S2 Respiratory: Yes: Regular, CTA Bilaterally Gastrointestinal: Yes: Normal Bowel Sounds, Soft Musculoskeletal: Yes: WNL Extremities: Yes: Other Neurological: Yes: Alert Psychiatric: Yes: Other Labs: CBC, BMP 11/09/19 07:00 11/09/19 07:00 INR, PTT INR 1.13 (0.83-1.09) H 10/31/19 18:00 Assessment/Plan Problem List - Problems (1) AMS (altered mental status) Code(s): R41.82 - ALTERED MENTAL STATUS, UNSPECIFIED (2) UTI (urinary tract infection) Code(s): N39.0 - URINARY TRACT INFECTION, SITE NOT SPECIFIED Qualifiers: (3) Atrial fibrillation Code(s): I48.91 - UNSPECIFIED ATRIAL FIBRILLATION Qualifiers: Atrial fibrillation type: chronic (4) HLD (hyperlipidemia) Code(s): E78.5 - HYPERLIPIDEMIA, UNSPECIFIED (5) HTN (hypertension) Code(s): I10 - ESSENTIAL (PRIMARY) HYPERTENSION (6) Hypothyroid Code(s): E03.9 - HYPOTHYROIDISM, UNSPECIFIED Assessment/Plan AMS UTI AFIB s/p CVA HTN continue to monitor rest as per the team
--- NOTE | 2019-11-10 14:17 | PN ---
Physical Exam: SUBJECTIVE: Patient seen and examined at bedside. Per night team, pt seen agitated overnight. No other acute events overnight. OBJECTIVE: Vital Signs Period Temp Pulse Resp BP Sys/Yañez Pulse Ox Last 24 Hr 97.6 F-98.9 F 78-90 20-20 105-144/78-90 93-96 GENERAL: The patient is A&O x 1, in no acute distress. HEAD: Normal with no signs of trauma. EYES: Sclera anicteric, conjunctiva clear. ENT: Dry mucous membranes. LUNGS: Breath sounds equal, clear to auscultation bilaterally anteriorly, no wh eezes, no crackles, no accessory muscle use. HEART: Regular rate and rhythm, S1, S2 without murmur ABDOMEN: Soft, obese, nontender, nondistended but protuberant, dull to percussion with fluid wave, normoactive bowel sounds, no guarding, no rebound EXTREMITIES: 2+ dorsal pedal pulses , warm, well-perfused, toes TTP, erythematous NEUROLOGICAL: Normal speech, gait not observed. PSYCH: Normal mood, normal affect. SKIN: Warm, dry, normal turgor, no rashes or lesions noted Laboratory Results - last 24 hr 11/09/19 11/10/19 21:59 05:52 POC Glucometer 208 120 Active Medications Generic Name Dose Route Start Last Admin Trade Name Freq PRN Reason Stop Dose Admin Acetaminophen 650 mg 11/07/19 16:00 11/08/19 09:37 Tylenol - PO 650 mg Q6H PRN Administration PAIN LEVEL 6-10 Albuterol Sulfate 2 puff 11/01/19 17:33 11/01/19 18:22 Ventolin Hfa Inhaler - IH 2 puff Q4H PRN Administration SHORT OF BREATH/WHEEZING Apixaban 5 mg 11/01/19 10:00 11/10/19 10:18 Eliquis - PO 5 mg BID NELSY Administration Atorvastatin Calcium 10 mg 11/01/19 22:00 11/09/19 21:59 Lipitor - PO 10 mg HS NELSY Administration Budesonide/Formoterol Fumarate 2 puff 11/01/19 22:00 11/10/19 10:18 Symbicort 80/4.5mcg - IH 2 puff BID NELSY Administration Colchicine 0.6 mg 11/07/19 14:00 11/10/19 10:17 Colcrys PO 0.6 mg DAILY NELSY Administration Famotidine 20 mg 11/07/19 13:15 11/10/19 10:18 Pepcid - PO 20 mg DAILY NELSY Administration Furosemide 20 mg 11/02/19 10:00 11/10/19 10:18 Lasix - PO 20 mg DAILY NELSY Administration Gabapentin 300 mg 11/08/19 10:00 11/10/19 10:18 Neurontin - PO 300 mg DAILY NELSY Administration Insulin Aspart 1 vial 10/31/19 22:00 11/10/19 12:09 Novolog Vial Sliding Scale - SQ 4 unit ACHS NELSY Administration Protocol Levothyroxine Sodium 100 mcg 11/02/19 07:00 11/10/19 06:01 Synthroid - PO 100 mcg AM NELSY Administration Metoprolol Succinate 50 mg 11/02/19 10:03 11/10/19 10:19 Toprol Xl - PO Not Given DAILY NELSY Spironolactone 25 mg 11/01/19 10:00 11/10/19 10:18 Aldactone - PO 25 mg DAILY NELSY Administration Thiamine HCl 250 mg 11/05/19 12:24 11/10/19 10:19 Vitamin B1 - PO 250 mg DAILY NELSY Administration ASSESSMENT/PLAN: 88 y.o. M w/ PMHx. of Afib on Eliquis, Hx. of CVA, HTN, HLD, Hypothyroidism, HFrEF, and CAD presents to the ED with AMS. As per daughter, normally A&O x3 but then only oriented to name. In the ED, denies any complaint. Physical notable for mild suprapubic pain. Labs notable for UA(contaminated with multiple epithelial cells). Admitted for AMS, possibly 2/2 to UTI #Acute Metabolic encephalopathy --possibly 2/2 UTI; s/p completion of IV Ceftriaxone x7 days -CTH: possible small chronic b/l cerebral (Left frontal, left occipital and Right parietal) infarcts. Note is again made of a 2cm full-thickeness perforation of the cartilaginous nasal septum -MRI brain: no acute infarct -UA+, UCx neg; likely contaminant -RPR Negative, TSH wnl -Psych consult appreciate recs; no meds needed #Acute Gout Flare -elevated Uric acid -started Colchicine 0.6 QD -Given dose of Unasyn, but d/c due to normal WBC as PE findings likely c/w gout #Hx of CVA --not documented in chart -start ASA 81, c/w Pravastatin 10 #Chronic Afib -Metoprolol Succinate increased to 50mg -Cardiology consult appreciated Cont home med: Eliquis 5 BID #HFrEF --not in exacerbation -Echo(11/18/16): mod-severed reduced LV systolic function LVEF 45.6%, mod global hypokinesis of the LV. RA is mod-severely dilated. Moderate TR. RVSP 46mmHg Cont home meds: metoprolol, spironolactone 25, and Lasix 20 #Prophylaxis DVT: Cont home Eliquis 5 BID GI: Pepcid 20 #FEN -PO hydration -Recheck lytes in AM -Dysphagia chopped diet as Pt. does not have dentures with him, no MBS indicated at this time Dispo -d/c planning once pt is accepted to SNF; pending repeat COVID test -Cont to monitor on med-surg Visit type - Emergency Visit Emergency Visit: Yes ED Registration Date: 10/31/19 Care time: The patient presented to the Emergency Department on the above date and was hospitalized for further evaluation of their emergent condition. - New Patient This patient is new to me today: Yes Date on this admission: 11/10/19 - Critical Care Critical Care patient: No - Medication Review Med list reviewed for High Risk Meds patients 65 and older: Yes ATTENDING PHYSICIAN STATEMENT I saw and evaluated the patient. I reviewed the resident's note and discussed the case with the resident. I agree with the resident's findings and plan as documented. SUBJECTIVE: OBJECTIVE: ASSESSMENT AND PLAN:
[2019-11-10] MEDS: ATORVASTATIN CA 10 MG TABLET (FP) PO SCH (22:08)
--- NOTE | 2019-11-11 06:07 | PN ---
Progress Note, Physician Chief Complaint: sleeping, wakes easily Denies CP, sob, palps, dizziness History of Present Illness: tele: off - Current Medication List Current Medications: Active Medications Acetaminophen (Tylenol -) 650 mg PO Q6H PRN PRN Reason: PAIN LEVEL 6-10 Last Admin: 11/08/19 09:37 Dose: 650 mg Documented by: Albuterol Sulfate (Ventolin Hfa Inhaler -) 2 puff IH Q4H PRN PRN Reason: SHORT OF BREATH/WHEEZING Last Admin: 11/01/19 18:22 Dose: 2 puff Documented by: Apixaban (Eliquis -) 5 mg PO BID [facility] Last Admin: 11/10/19 22:08 Dose: 5 mg Documented by: Atorvastatin Calcium (Lipitor -) 10 mg PO HS [facility] Last Admin: 11/10/19 22:08 Dose: 10 mg Documented by: Budesonide/Formoterol Fumarate (Symbicort 80/4.5mcg -) 2 puff IH BID [facility] Last Admin: 11/10/19 22:08 Dose: 2 puff Documented by: Colchicine (Colcrys) 0.6 mg PO DAILY [facility] Last Admin: 11/10/19 10:17 Dose: 0.6 mg Documented by: Docusate Sodium (Colace Liquid -) 100 mg PO ONCE ONE Stop: 11/11/19 08:01 Famotidine (Pepcid -) 20 mg PO DAILY [facility] Last Admin: 11/10/19 10:18 Dose: 20 mg Documented by: Furosemide (Lasix -) 20 mg PO DAILY [facility] Last Admin: 11/10/19 10:18 Dose: 20 mg Documented by: Gabapentin (Neurontin -) 300 mg PO DAILY [facility] Last Admin: 11/10/19 10:18 Dose: 300 mg Documented by: Insulin Aspart (Novolog Vial Sliding Scale -) 1 vial SQ [facility]; Protocol Last Admin: 11/10/19 22:08 Dose: 2 unit Documented by: Levothyroxine Sodium (Synthroid -) 100 mcg PO AM [facility] Last Admin: 11/10/19 06:01 Dose: 100 mcg Documented by: Metoprolol Succinate (Toprol Xl -) 50 mg PO DAILY [facility] Last Admin: 11/10/19 10:19 Dose: Not Given Documented by: Spironolactone (Aldactone -) 25 mg PO DAILY [facility] Last Admin: 11/10/19 10:18 Dose: 25 mg Documented by: Thiamine HCl (Vitamin B1 -) 250 mg PO DAILY [facility] Last Admin: 11/10/19 10:19 Dose: 250 mg Documented by: - Objective Vital Signs: Vital Signs Temperature 98.6 F 11/10/19 22:00 Pulse Rate 82 11/10/19 22:00 Respiratory Rate 18 11/10/19 22:00 Blood Pressure 122/87 11/10/19 22:00 O2 Sat by Pulse Oximetry (%) 100 11/10/19 22:00 Constitutional: Yes: No Distress Eyes: Yes: Conjunctiva Clear Cardiovascular: Yes: Pulse Irregular Respiratory: Yes: CTA Bilaterally Gastrointestinal: Yes: Soft (nt) Edema: No ...Motor Strength: WNL Labs: CBC, BMP 11/09/19 07:00 11/09/19 07:00 INR, PTT INR 1.13 (0.83-1.09) H 10/31/19 18:00 Assessment/Plan Assessment/Plan a/p: 88 yo with h/o 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, non-obstructive cad, mod MR, afib with h/o cva (on eliquis), htn, hl, s/p remote LE bypass in setting of LE trauma, hypothyroid, BPH, prior heavy alcohol use, folate deficiency anemia, h/o throat CA s/p XRT, here with ams and UTI ams: + UTI: -abx as per primary team -psych evaluating non-obstructive cad: -no signs acs - ASA stopped as he is on full AC and risk of bleeding in this age group is elevated -cont statin, bb 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
[2019-11-11] MEDS: LEVOTHYROXINE NA 100 MCG TABLET (FP) PO SCH (06:34)
[2019-11-11] MEDS: INSULIN SLIDING SCALE (NOVOLOG) 1 VIAL SQ SCH ×4 (06:34→21:17)
[2019-11-11] MEDS ORDERED: DOCUSATE NA 100 MG/10 ML UNIT-DOSE CUPS PO ONE (08:00)
[2019-11-11] MEDS ORDERED: PT OWN MED DRAWER 7, Y5N ONE (10:42)
--- NOTE | 2019-11-11 10:45 | PN ---
Teaching Attending Note Name of Resident: Shanta Sheridan ATTENDING PHYSICIAN STATEMENT I saw and evaluated the patient. I reviewed the resident's note and discussed the case with the resident. I agree with the resident's findings and plan as documented. SUBJECTIVE: Seen and examined at bedside. Patient appears well, no complaints. Medically cleared for discharge to [facility] pending placement. Per case management daughter refused to give choices because she is upset with medical care. Called and left a message but unable to reach OBJECTIVE Last Vital Signs Temp Pulse Resp BP Pulse Ox 98.2 F 94 H 18 133/70 100 11/11/19 06:00 11/11/19 06:00 11/11/19 06:00 11/11/19 06:00 11/10/19 22:00 PE: Per resident note Labs/Imaging: reviewed ASSESSMENT/PLAN 80-year-old female with past medical history of A. fib on Eliquis, CVA, hypertension, hyperlipidemia, hypothyroidism, heart failure with reduced ejection fraction presents with AMS. Found to have elevated white count and dehydration. #Acute metabolic encephalopathy Differential includes worsening vascular dementia from stroke, dehydration due to poor oral intake, and possible infection MRI brain no acute infarct UTI contaminated White count improving with antibiotics: Status post 7 days ceftriaxone Psych consult appreciated #hypoxia: resolved #Delirium Mostly at nighttime Start Seroquel 50 mg at bedtime #Acute gout flare On colchicine Discontinue Unasyn: Patient has no white count and physical exam is consistent with gout #Positive urinalysis Urinalysis was contaminated Status post 7 days ceftriaxone #History of CVA Continue pravastatin Aspirin discontinued as patient is on Eliquis and is high bleeding risk due to age #Chronic A. fib on Eliquis Continue home medications Cardiology on board #Heart failure with reduced ejection fraction: At baseline Continue home occasions Dispo: Medically cleared for discharge to [facility] pending placement.
[2019-11-11] MEDS: SPIRONOLACTONE 25 MG TABLET PO SCH (10:46)
[2019-11-11] MEDS: SENNOSIDES 8.6MG TABLET (FP) PO SCH ×2 (10:46→21:17)
[2019-11-11] MEDS: GABAPENTIN 300 MG CAPSULE PO SCH (10:46)
[2019-11-11] MEDS: metoPROLOL SUCCINATE 25 MG TAB.SR.24H (FP) PO SCH (10:46)
[2019-11-11] MEDS: APIXABAN 5 MG TABLET PO SCH ×2 (10:46→21:17)
[2019-11-11] MEDS: FUROSEMIDE 20 MG TABLET (FP) PO SCH (10:46)
[2019-11-11] MEDS: BUDESONIDE/FORMETEROL FUMARATE 80/4.5 mcg INHALER IH SCH ×2 (10:47→21:23)
[2019-11-11] MEDS: COLCHICINE 0.6 MG TAB PO SCH (10:47)
[2019-11-11] MEDS: FAMOTIDINE 20 MG TABLET PO SCH (10:47)
[2019-11-11] MEDS: POLYETHYLENE GLYCOL 3350 119 GM BTL PO SCH (10:47)
[2019-11-11] MEDS: THIAMINE HCL 100 MG TABLET (FP) PO SCH (10:47)
--- NOTE | 2019-11-11 10:59 | PN ---
Progress Note, AIR HOIST OPERATOR - Note Progress Note: Selected Entries 11/09/19 11/09/19 11/09/19 10:00 13:38 15:00 Breakfast 100% Diet Tolerated Well Refused Refused Lunch 0 0 Supper Temperature Pulse Rate Blood Pressure 11/09/19 11/10/19 21:03 06:00 Breakfast Diet Tolerated Well Lunch Supper 100% Temperature 98.0 F Pulse Rate 88 Blood Pressure 140/88 Laboratory Tests 11/09/19 07:00 WBC 8.6 Selected Entries 11/10/19 11/10/19 11/10/19 10:42 14:00 15:00 Breakfast 75% Diet Tolerated Well Well Well Lunch 75% 75% Supper 50% Temperature 11/10/19 11/11/19 18:00 06:00 Breakfast Diet Tolerated Well Lunch Supper 50% Temperature 98.2 F Laboratory Tests 11/09/19 07:00 WBC 8.6 Downgraded to Dys puree/nectar with aspiration precautions- Aspiration precautions sign and recommendation sign posted for staff education Magic cup Ensure Enlive ordered (which is a thin liquid-Please d/c and replace with 2 mary HN or Suplena)
--- NOTE | 2019-11-11 11:51 | PN ---
Physical Exam: SUBJECTIVE: Patient seen and examined. No new complaints OBJECTIVE: Vital Signs Period Temp Pulse Resp BP Sys/Yañez Pulse Ox Last 24 Hr 98.2 F-98.6 F 82-94 18-20 113-133/64-87 96-100 GENERAL: A&Ox1, NAD HEAD: NCAT ENT: Dry mucous membranes. LUNGS: Dimnished breath sounds at the bases, no wheezes, no crackles HEART: Regular rate and rhythm, S1, S2 without murmur ABDOMEN: Soft, nontender, nondistended, + bowel sounds, no guarding, no rebound EXTREMITIES: No edema, Left great toe tender (but improved from prior as per patient) SKIN: Warm, dry Laboratory Last Values WBC 8.6 K/mm3 (4.0-10.0) 11/09/19 07:00 RBC 3.97 M/mm3 (4.00-5.60) L 11/09/19 07:00 Hgb 13.1 GM/dL (11.7-16.9) 11/09/19 07:00 Hct 39.3 % (35.4-49) 11/09/19 07:00 MCV 99.0 fl (80-96) H 11/09/19 07:00 MCH 33.0 pg (25.7-33.7) 11/09/19 07:00 MCHC 33.4 g/dl (32.0-35.9) 11/09/19 07:00 RDW 12.4 % (11.9-15.9) 11/09/19 07:00 Plt Count 247 K/MM3 (134-434) 11/09/19 07:00 MPV 9.3 fl (7.5-11.1) 11/09/19 07:00 Absolute Neuts (auto) 5.7 K/mm3 (1.5-8.0) 11/08/19 06:11 Neutrophils % 74.1 % (42.8-82.8) 11/08/19 06:11 Lymphocytes % 12.1 % (8-40) D 11/08/19 06:11 Monocytes % 11.2 % (3.8-10.2) H 11/08/19 06:11 Eosinophils % 2.3 % (0-4.5) 11/08/19 06:11 Basophils % 0.3 % (0-2.0) 11/08/19 06:11 Nucleated RBC % 0 % (0-0) 11/08/19 06:11 PT with INR 13.30 SEC (9.7-13.0) H 10/31/19 18:00 INR 1.13 (0.83-1.09) H 10/31/19 18:00 PTT (Actin FS) 30.5 SECONDS (25.2-36.5) 10/31/19 18:00 Sodium 138 mmol/L (136-145) 11/09/19 07:00 Potassium 4.4 mmol/L (3.5-5.1) 11/09/19 07:00 Chloride 100 mmol/L (98-107) 11/09/19 07:00 Carbon Dioxide 28 mmol/L (21-32) 11/09/19 07:00 Anion Gap 10 MMOL/L (8-16) 11/09/19 07:00 BUN 26.1 mg/dL (7-18) H 11/09/19 07:00 Creatinine 1.0 mg/dL (0.55-1.3) 11/09/19 07:00 Est GFR (CKD-EPI)AfAm 77.54 11/09/19 07:00 Est GFR (CKD-EPI)NonAf 66.90 11/09/19 07:00 POC Glucometer 190 UNITS (80-120) 11/10/19 22:07 Random Glucose 123 mg/dL (74-106) H 11/09/19 07:00 Hemoglobin A1c % 6.4 % (4.2-6.3) H 11/01/19 11:20 Lactic Acid 1.2 mmol/L (0.4-2.0) 11/07/19 16:34 Uric Acid 8.0 mg/dL (2.6-7.2) H 11/07/19 06:47 Calcium 9.3 mg/dL (8.5-10.1) 11/09/19 07:00 Phosphorus 2.9 mg/dL (2.5-4.9) 11/02/19 06:55 Magnesium 2.1 mg/dL (1.8-2.4) 11/08/19 06:11 Total Bilirubin 1.3 mg/dL (0.2-1) H 11/02/19 06:55 AST 23 U/L (15-37) 11/02/19 06:55 ALT 21 U/L (13-61) 11/02/19 06:55 Alkaline Phosphatase 98 U/L (45-117) 11/02/19 06:55 Ammonia 26.90 umol/L (11-32) 11/02/19 06:55 Creatine Kinase 48 U/L (26-308) 11/07/19 15:55 Troponin I < 0.02 ng/ml (0.00-0.05) 10/31/19 18:00 Total Protein 7.8 g/dl (6.4-8.2) 11/02/19 06:55 Albumin 3.6 g/dl (3.4-5.0) 11/02/19 06:55 Triglycerides 76 mg/dL (0-150) 11/01/19 11:20 Cholesterol 139 mg/dL (50-200) 11/01/19 11:20 Total LDL Cholesterol 80 mg/dL (5-100) 11/01/19 11:20 HDL Cholesterol 48 mg/dL (40-60) 11/01/19 11:20 Vitamin B12 631 pg/ml (193-986) 11/01/19 11:20 Serum Folate 16 ng/mL (3.1-17.5) 11/01/19 11:20 TSH 2.12 uIU/ml (0.358-3.74) D 11/01/19 11:20 Urine Color Yellow 10/31/19 15:30 Urine Appearance Clear 10/31/19 15:30 Urine pH 6.5 (5.0-8.0) D 10/31/19 15:30 Ur Specific Eagle 1.020 (1.010-1.035) 10/31/19 15:30 Urine Protein 3+ (NEGATIVE) H 10/31/19 15:30 Urine Glucose (UA) Negative (NEGATIVE) 10/31/19 15:30 Urine Ketones Negative (NEGATIVE) 10/31/19 15:30 Urine Blood Trace (NEGATIVE) 10/31/19 15:30 Urine Nitrite Negative (NEGATIVE) 10/31/19 15:30 Urine Bilirubin Negative (NEGATIVE) 10/31/19 15:30 Urine Urobilinogen 1.0 mg/dL (0.2-1.0) 10/31/19 15:30 Ur Leukocyte Esterase 2+ (NEGATIVE) H 10/31/19 15:30 Urine WBC (Auto) 467 /uL (0-25.8) 10/31/19 15:30 Urine RBC (Auto) 49 /uL (0-23.9) 10/31/19 15:30 Urine Casts (Auto) 3 /uL (0-3.1) 10/31/19 15:30 U Epithel Cells (Auto) >36 /uL (0-25.1) 10/31/19 15:30 Urine Bacteria (Auto) 66 /uL (0-1359) 10/31/19 15:30 Alcohol, Quantitative < 3 mg/dL (0.0-5.0) 10/31/19 18:00 Syphilis Serology Non-reactive (NONREACTIVE) 11/01/19 11:20 COVID-19 (DESIRAE) Not detected (Not Detected) 11/04/19 05:30 Blood Type A POSITIVE 10/31/19 18:00 Antibody Screen Negative 10/31/19 18:00 Microbiology 11/06/19 17:00 Urine - Urine Clean Catch Urine Culture - Final NO GROWTH OBTAINED 10/31/19 17:00 Urine - Urine - Catheterized Urine Culture - Final Staphylococcus Warneri Active Medications Acetaminophen (Tylenol -) 650 mg PO Q6H PRN PRN Reason: PAIN LEVEL 6-10 Last Admin: 11/08/19 09:37 Dose: 650 mg Documented by: Albuterol Sulfate (Ventolin Hfa Inhaler -) 2 puff IH Q4H PRN PRN Reason: SHORT OF BREATH/WHEEZING Last Admin: 11/01/19 18:22 Dose: 2 puff Documented by: Apixaban (Eliquis -) 5 mg PO BID [facility] Last Admin: 11/11/19 10:46 Dose: 5 mg Documented by: Atorvastatin Calcium (Lipitor -) 10 mg PO HS [facility] Last Admin: 11/10/19 22:08 Dose: 10 mg Documented by: Budesonide/Formoterol Fumarate (Symbicort 80/4.5mcg -) 2 puff IH BID [facility] Last Admin: 11/11/19 10:47 Dose: 2 puff Documented by: Colchicine (Colcrys) 0.6 mg PO DAILY [facility] Last Admin: 11/11/19 10:47 Dose: 0.6 mg Documented by: Famotidine (Pepcid -) 20 mg PO DAILY [facility] Last Admin: 11/11/19 10:47 Dose: 20 mg Documented by: Furosemide (Lasix -) 20 mg PO DAILY [facility] Last Admin: 11/11/19 10:46 Dose: 20 mg Documented by: Gabapentin (Neurontin -) 300 mg PO DAILY [facility] Last Admin: 11/11/19 10:46 Dose: 300 mg Documented by: Insulin Aspart (Novolog Vial Sliding Scale -) 1 vial SQ ACHS [facility]; Protocol Last Admin: 11/11/19 06:34 Dose: Not Given Documented by: Levothyroxine Sodium (Synthroid -) 100 mcg PO AM [facility] Last Admin: 11/11/19 06:34 Dose: 100 mcg Documented by: Metoprolol Succinate (Toprol Xl -) 50 mg PO DAILY [facility] Last Admin: 11/11/19 10:46 Dose: 50 mg Documented by: Polyethylene Glycol (Miralax (For Daily Use) -) 17 gm PO DAILY [facility] Last Admin: 11/11/19 10:47 Dose: 17 gm Documented by: Senna (Senna -) 1 tab PO BID [facility] Last Admin: 11/11/19 10:46 Dose: 1 tab Documented by: Spironolactone (Aldactone -) 25 mg PO DAILY [facility] Last Admin: 11/11/19 10:46 Dose: 25 mg Documented by: Thiamine HCl (Vitamin B1 -) 250 mg PO DAILY [facility] Last Admin: 11/11/19 10:47 Dose: 250 mg Documented by: ASSESSMENT/PLAN: 88 y.o. M w/ PMHx. of Afib on Eliquis, Hx. of CVA, HTN, HLD, Hypothyroidism, HFrEF, and CAD presents to the ED with AMS. As per daughter, normally A&O x3 but then only oriented to name. In the ED, denies any complaint. Physical notable for mild suprapubic pain. Labs notable for UA(contaminated with multiple epithelial cells). Admitted for AMS, possibly 2/2 to UTI #Acute Metabolic encephalopathy --possibly 2/2 UTI; s/p completion of IV Ceftriaxone x7 days -CTH: possible small chronic b/l cerebral (Left frontal, left occipital and Right parietal) infarcts. Note is again made of a 2cm full-thickeness perforation of the cartilaginous nasal septum -MRI brain: no acute infarct -UA+, UCx neg; likely contaminant -RPR Negative, TSH wnl -Leukocytosis improving -Psych consult appreciate recs; no meds needed #Delirium -Start Seroquel 50mg HS #Acute Gout Flare -Continue Colchicine 0.6 QD #Hx of CVA -Continue statin #AFib -Continue Metoprolol Succinate 50mg, DOAC -Cardiology consult appreciated #HFrEF -Stable, not in exacerbation -Cont home dose metoprolol, spironolactone, and Lasix #Prophylaxis DVT: DOAC GI: Pepcid #FEN -PO hydration -Replete lytes PRN -Dysphagia chopped diet as Pt. does not have dentures with him, no MBS indicated at this time Dispo -d/c planning once pt is accepted to SNF; pending repeat COVID test -Cont to monitor on med-surg Visit type - Emergency Visit Emergency Visit: Yes ED Registration Date: 10/31/19 Care time: The patient presented to the Emergency Department on the above date and was hospitalized for further evaluation of their emergent condition. - New Patient This patient is new to me today: Yes Date on this admission: 11/11/19 - Critical Care Critical Care patient: No - Discharge Referral Referred to [facility] No - Medication Review Med list reviewed for High Risk Meds patients 65 and older: Yes ATTENDING PHYSICIAN STATEMENT I saw and evaluated the patient. I reviewed the resident's note and discussed the case with the resident. I agree with the resident's findings and plan as documented. SUBJECTIVE: OBJECTIVE: ASSESSMENT AND PLAN:
--- NOTE | 2019-11-11 12:42 | PN ---
Progress Note, Physician History of Present Illness: no new issues confusion - Current Medication List Current Medications: Active Medications Acetaminophen (Tylenol -) 650 mg PO Q6H PRN PRN Reason: PAIN LEVEL 6-10 Last Admin: 11/08/19 09:37 Dose: 650 mg Documented by: Albuterol Sulfate (Ventolin Hfa Inhaler -) 2 puff IH Q4H PRN PRN Reason: SHORT OF BREATH/WHEEZING Last Admin: 11/01/19 18:22 Dose: 2 puff Documented by: Apixaban (Eliquis -) 5 mg PO BID [facility] Last Admin: 11/11/19 10:46 Dose: 5 mg Documented by: Atorvastatin Calcium (Lipitor -) 10 mg PO HS [facility] Last Admin: 11/10/19 22:08 Dose: 10 mg Documented by: Budesonide/Formoterol Fumarate (Symbicort 80/4.5mcg -) 2 puff IH BID [facility] Last Admin: 11/11/19 10:47 Dose: 2 puff Documented by: Colchicine (Colcrys) 0.6 mg PO DAILY [facility] Last Admin: 11/11/19 10:47 Dose: 0.6 mg Documented by: Famotidine (Pepcid -) 20 mg PO DAILY [facility] Last Admin: 11/11/19 10:47 Dose: 20 mg Documented by: Furosemide (Lasix -) 20 mg PO DAILY [facility] Last Admin: 11/11/19 10:46 Dose: 20 mg Documented by: Gabapentin (Neurontin -) 300 mg PO DAILY [facility] Last Admin: 11/11/19 10:46 Dose: 300 mg Documented by: Insulin Aspart (Novolog Vial Sliding Scale -) 1 vial SQ [facility]; Protocol Last Admin: 11/11/19 11:44 Dose: 4 unit Documented by: Levothyroxine Sodium (Synthroid -) 100 mcg PO AM [facility] Last Admin: 11/11/19 06:34 Dose: 100 mcg Documented by: Metoprolol Succinate (Toprol Xl -) 50 mg PO DAILY [facility] Last Admin: 11/11/19 10:46 Dose: 50 mg Documented by: Polyethylene Glycol (Miralax (For Daily Use) -) 17 gm PO DAILY [facility] Last Admin: 11/11/19 10:47 Dose: 17 gm Documented by: Senna (Senna -) 1 tab PO BID [facility] Last Admin: 11/11/19 10:46 Dose: 1 tab Documented by: Spironolactone (Aldactone -) 25 mg PO DAILY [facility] Last Admin: 11/11/19 10:46 Dose: 25 mg Documented by: Thiamine HCl (Vitamin B1 -) 250 mg PO DAILY [facility] Last Admin: 11/11/19 10:47 Dose: 250 mg Documented by: - Objective Vital Signs: Vital Signs Temperature 98.3 F 11/11/19 10:00 Pulse Rate 87 11/11/19 10:00 Respiratory Rate 18 11/11/19 10:00 Blood Pressure 113/66 11/11/19 10:00 O2 Sat by Pulse Oximetry (%) 96 11/11/19 10:00 Constitutional: Yes: No Distress, Calm Cardiovascular: Yes: S1, S2 Respiratory: Yes: Regular, CTA Bilaterally Gastrointestinal: Yes: Normal Bowel Sounds, Soft Musculoskeletal: Yes: WNL Extremities: Yes: Other Neurological: Yes: Alert, Confusion Labs: CBC, BMP 11/09/19 07:00 11/09/19 07:00 INR, PTT INR 1.13 (0.83-1.09) H 10/31/19 18:00 Assessment/Plan Problem List - Problems (1) AMS (altered mental status) Code(s): R41.82 - ALTERED MENTAL STATUS, UNSPECIFIED (2) UTI (urinary tract infection) Code(s): N39.0 - URINARY TRACT INFECTION, SITE NOT SPECIFIED Qualifiers: (3) Atrial fibrillation Code(s): I48.91 - UNSPECIFIED ATRIAL FIBRILLATION Qualifiers: Atrial fibrillation type: chronic (4) HLD (hyperlipidemia) Code(s): E78.5 - HYPERLIPIDEMIA, UNSPECIFIED (5) HTN (hypertension) Code(s): I10 - ESSENTIAL (PRIMARY) HYPERTENSION (6) Hypothyroid Code(s): E03.9 - HYPOTHYROIDISM, UNSPECIFIED Assessment/Plan AMS UTI AFIB s/p CVA HTN continue to monitor rest as per the team
[2019-11-11] MEDS: ATORVASTATIN CA 10 MG TABLET (FP) PO SCH (21:17)
[2019-11-12] MEDS: INSULIN SLIDING SCALE (NOVOLOG) 1 VIAL SQ SCH ×4 (07:08→21:29)
[2019-11-12] MEDS: LEVOTHYROXINE NA 100 MCG TABLET (FP) PO SCH (07:08)
[2019-11-12] MEDS: APIXABAN 5 MG TABLET PO SCH ×2 (10:07→21:29)
[2019-11-12] MEDS: SPIRONOLACTONE 25 MG TABLET PO SCH (10:07)
[2019-11-12] MEDS: GABAPENTIN 300 MG CAPSULE PO SCH (10:07)
[2019-11-12] MEDS: metoPROLOL SUCCINATE 25 MG TAB.SR.24H (FP) PO SCH (10:07)
[2019-11-12] MEDS: POLYETHYLENE GLYCOL 3350 119 GM BTL PO SCH (10:08)
[2019-11-12] MEDS: SENNOSIDES 8.6MG TABLET (FP) PO SCH ×2 (10:08→21:29)
[2019-11-12] MEDS: COLCHICINE 0.6 MG TAB PO SCH (10:08)
[2019-11-12] MEDS: FUROSEMIDE 20 MG TABLET (FP) PO SCH (10:08)
[2019-11-12] MEDS: FAMOTIDINE 20 MG TABLET PO SCH (10:09)
[2019-11-12] MEDS: BUDESONIDE/FORMETEROL FUMARATE 80/4.5 mcg INHALER IH SCH ×2 (10:09→21:30)
[2019-11-12] MEDS: THIAMINE HCL 100 MG TABLET (FP) PO SCH (10:10)
--- NOTE | 2019-11-12 11:00 | PN ---
Progress Note (short form) - Note Progress Note: s: no distress no CP/SOB/palps History of Present Illness: Current Medications Generic Name Dose Route Start Last Admin Trade Name Freq PRN Reason Stop Dose Admin Acetaminophen 650 mg 11/07/19 16:00 11/08/19 09:37 Tylenol - PO 650 mg Q6H PRN Administration PAIN LEVEL 6-10 Albuterol Sulfate 2 puff 11/01/19 17:33 11/01/19 18:22 Ventolin Hfa Inhaler - IH 2 puff Q4H PRN Administration SHORT OF BREATH/WHEEZING Apixaban 5 mg 11/01/19 10:00 11/12/19 10:07 Eliquis - PO 5 mg BID NELSY Administration Atorvastatin Calcium 10 mg 11/01/19 22:00 11/11/19 21:17 Lipitor - PO 10 mg HS NELSY Administration Budesonide/Formoterol Fumarate 2 puff 11/01/19 22:00 11/12/19 10:09 Symbicort 80/4.5mcg - IH 2 puff BID NELSY Administration Colchicine 0.6 mg 11/07/19 14:00 11/12/19 10:08 Colcrys PO 0.6 mg DAILY N[facility]SY Administration Famotidine 20 mg 11/07/19 13:15 11/12/19 10:09 Pepcid - PO 20 mg DAILY N[facility]SY Administration Furosemide 20 mg 11/02/19 10:00 11/12/19 10:08 Lasix - PO 20 mg DAILY NELSY Administration Gabapentin 300 mg 11/08/19 10:00 11/12/19 10:07 Neurontin - PO 300 mg DAILY NELSY Administration Insulin Aspart 1 vial 10/31/19 22:00 11/12/19 07:08 Novolog Vial Sliding Scale - SQ 2 unit ACHS NELSY Administration Protocol Levothyroxine Sodium 100 mcg 11/02/19 07:00 11/12/19 07:08 Synthroid - PO 100 mcg AM NELSY Administration Metoprolol Succinate 50 mg 11/02/19 10:03 11/12/19 10:07 Toprol Xl - PO 50 mg DAILY NELSY Administration Polyethylene Glycol 17 gm 11/11/19 10:00 11/12/19 10:08 Miralax (For Daily Use) - PO 17 gm DAILY [facility] Administration Senna 1 tab 11/11/19 10:00 09/05/20 10:08 Senna - PO 1 tab BID N[facility]SY Administration Spironolactone 25 mg 11/01/19 10:00 11/12/19 10:07 Aldactone - PO 25 mg DAILY N[facility]SY Administration Thiamine HCl 250 mg 11/05/19 12:24 11/12/19 10:10 Vitamin B1 - PO 250 mg DAILY NELSY Administration Vital Signs Period Temp Pulse Resp BP Sys/Yañez Pulse Ox Last 24 Hr 97.1 F-98.1 F 77-90 16-18 117-142/65-85 94-96 Constitutional: Yes: No Distress, Calm Cardiovascular: Yes: Pulse Irregular Respiratory: Yes: Rhonchi Gastrointestinal: Yes: Soft (nt) Edema: No Neurological: Yes: Alert, Oriented ...Motor Strength: WNL no jaundice diaphoresis Labs: CBC, BMP 11/09/19 07:00 11/09/19 07:00 - ....Imaging EKG: Image Reviewed Assessment/Plan a/p: 88 yo with h/o 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, non-obstructive cad, 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, afib with h/o cva (on eliquis), htn, hl, s/p remote LE bypass in setting of LE trauma, hypothyroid, BPH, prior heavy alcohol use, folate deficiency anemia, h/o throat CA s/p XRT, here with ams and UTI ams: + UTI -abx as per primary team -psych evaluating non-obstructive cad: -no signs acs - ASA stopped as he is on full AC and risk of bleeding in this age group is elevated -cont statin, bb 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
--- NOTE | 2019-11-12 12:00 | PN ---
Progress Note, Physician History of Present Illness: no new issues confusion much better - Current Medication List Current Medications: Active Medications Acetaminophen (Tylenol -) 650 mg PO Q6H PRN PRN Reason: PAIN LEVEL 6-10 Last Admin: 11/08/19 09:37 Dose: 650 mg Documented by: Albuterol Sulfate (Ventolin Hfa Inhaler -) 2 puff IH Q4H PRN PRN Reason: SHORT OF BREATH/WHEEZING Last Admin: 11/01/19 18:22 Dose: 2 puff Documented by: Apixaban (Eliquis -) 5 mg PO BID [facility] Last Admin: 11/12/19 10:07 Dose: 5 mg Documented by: Atorvastatin Calcium (Lipitor -) 10 mg PO HS [facility] Last Admin: 11/11/19 21:17 Dose: 10 mg Documented by: Budesonide/Formoterol Fumarate (Symbicort 80/4.5mcg -) 2 puff IH BID [facility] Last Admin: 11/12/19 10:09 Dose: 2 puff Documented by: Colchicine (Colcrys) 0.6 mg PO DAILY [facility] Last Admin: 11/12/19 10:08 Dose: 0.6 mg Documented by: Famotidine (Pepcid -) 20 mg PO DAILY [facility] Last Admin: 11/12/19 10:09 Dose: 20 mg Documented by: Furosemide (Lasix -) 20 mg PO DAILY [facility] Last Admin: 11/12/19 10:08 Dose: 20 mg Documented by: Gabapentin (Neurontin -) 300 mg PO DAILY [facility] Last Admin: 11/12/19 10:07 Dose: 300 mg Documented by: Insulin Aspart (Novolog Vial Sliding Scale -) 1 vial SQ ACHS [facility]; Protocol Last Admin: 11/12/19 11:37 Dose: 2 unit Documented by: Levothyroxine Sodium (Synthroid -) 100 mcg PO AM [facility] Last Admin: 11/12/19 07:08 Dose: 100 mcg Documented by: Metoprolol Succinate (Toprol Xl -) 50 mg PO DAILY [facility] Last Admin: 11/12/19 10:07 Dose: 50 mg Documented by: Polyethylene Glycol (Miralax (For Daily Use) -) 17 gm PO DAILY [facility] Last Admin: 11/12/19 10:08 Dose: 17 gm Documented by: Senna (Senna -) 1 tab PO BID [facility] Last Admin: 11/12/19 10:08 Dose: 1 tab Documented by: Spironolactone (Aldactone -) 25 mg PO DAILY [facility] Last Admin: 11/12/19 10:07 Dose: 25 mg Documented by: Thiamine HCl (Vitamin B1 -) 250 mg PO DAILY [facility] Last Admin: 11/12/19 10:10 Dose: 250 mg Documented by: - Objective Vital Signs: Vital Signs Temperature 98.0 F 11/12/19 10:00 Pulse Rate 77 11/12/19 10:00 Respiratory Rate 18 11/12/19 10:00 Blood Pressure 117/68 11/12/19 10:00 O2 Sat by Pulse Oximetry (%) 95 11/12/19 10:00 Constitutional: Yes: No Distress, Calm Cardiovascular: Yes: S1, S2 Respiratory: Yes: Regular, CTA Bilaterally Gastrointestinal: Yes: Normal Bowel Sounds, Soft Musculoskeletal: Yes: WNL Extremities: Yes: WNL Neurological: Yes: Alert, Confusion Psychiatric: Yes: Other Labs: CBC, BMP 11/09/19 07:00 11/09/19 07:00 INR, PTT INR 1.13 (0.83-1.09) H 10/31/19 18:00 Assessment/Plan Problem List - Problems (1) AMS (altered mental status) Code(s): R41.82 - ALTERED MENTAL STATUS, UNSPECIFIED (2) UTI (urinary tract infection) Code(s): N39.0 - URINARY TRACT INFECTION, SITE NOT SPECIFIED Qualifiers: (3) Atrial fibrillation Code(s): I48.91 - UNSPECIFIED ATRIAL FIBRILLATION Qualifiers: Atrial fibrillation type: chronic (4) HLD (hyperlipidemia) Code(s): E78.5 - HYPERLIPIDEMIA, UNSPECIFIED (5) HTN (hypertension) Code(s): I10 - ESSENTIAL (PRIMARY) HYPERTENSION (6) Hypothyroid Code(s): E03.9 - HYPOTHYROIDISM, UNSPECIFIED Assessment/Plan AMS UTI AFIB s/p CVA HTN continue to monitor rest as per the team
[2019-11-12 12:21] LABS: BASO % 0.7 % (0-2.0); EOS % 2.5 % (0-4.5); HEMATOCRIT 37.9 % (35.4-49); HEMOGLOBIN 12.8 GM/dL (11.7-16.9); MCH 33.3 pg (25.7-33.7); MCHC 33.7 g/dl (32.0-35.9); MEAN CELL VOLUME 98.7 fl (80-96); MEAN PLT VOLUME 8.9 fl (7.5-11.1); MONO % 8.4 % (3.8-10.2); NEUT % 72.4 % (42.8-82.8); PLATELET COUNT 278 K/MM3 (134-434); RBC 3.84 M/mm3 (4.00-5.60); RDW 12.1 % (11.9-15.9); WHITE BLOOD COUNT 7.4 K/mm3 (4.0-10.0)
[2019-11-12 12:56] LABS: ALBUMIN 2.8 g/dl (3.4-5.0); BILIRUBIN,TOTAL 0.5 mg/dL (0.2-1); BLOOD UREA NITROGEN 27.7 mg/dL (7-18); CALCIUM 9.1 mg/dL (8.5-10.1); CREATININE 1.3 mg/dL (0.55-1.3); POTASSIUM 4.5 mmol/L (3.5-5.1); TOT PROT 6.9 g/dl (6.4-8.2)
--- NOTE | 2019-11-12 13:14 | PN ---
Physical Exam: SUBJECTIVE: Patient seen and examined at bedside, no overnight events, awaiting SNF placement. VSS. OBJECTIVE: GENERAL: The patient is awake and alert, NAD, engaging in conversation, AAox1 HEAD: Normal with no signs of trauma. EYES: Sclera anicteric, conjunctiva clear. ENT: Dry mucous membranes. LUNGS: Breath sounds equal, clear to auscultation bilaterally anteriorly, no wheezes, no crackles, no accessory muscle use. HEART: Regular rate and rhythm, S1, S2 without murmur ABDOMEN: Soft, obese, nontender, distended, normoactive bowel sounds, no guarding, no rebound EXTREMITIES: 2+ dorsal pedal pulses , warm, well-perfused. NEUROLOGICAL: Normal speech, gait not observed. PSYCH: slightly confused, calm SKIN: Warm, dry, normal turgor, no rashes or lesions noted Laboratory Results - last 24 hr 11/10/19 11/11/19 11/12/19 14:30 20:49 11:35 WBC RBC Hgb Hct MCV MCH MCHC RDW Plt Count MPV Absolute Neuts (auto) Neutrophils % Lymphocytes % Monocytes % Eosinophils % Basophils % Nucleated RBC % Sodium Potassium Chloride Carbon Dioxide Anion Gap BUN Creatinine Est GFR (CKD-EPI)AfAm Est GFR (CKD-EPI)NonAf POC Glucometer 170 184 Random Glucose Calcium Total Bilirubin AST ALT Alkaline Phosphatase Total Protein Albumin COVID-19 (DESIRAE) Not detected 11/12/19 11/12/19 11:40 11:40 WBC 7.4 RBC 3.84 L Hgb 12.8 Hct 37.9 MCV 98.7 H MCH 33.3 MCHC 33.7 RDW 12.1 Plt Count 278 MPV 8.9 Absolute Neuts (auto) 5.3 Neutrophils % 72.4 Lymphocytes % 16.0 D Monocytes % 8.4 Eosinophils % 2.5 Basophils % 0.7 Nucleated RBC % 0 Sodium 138 Potassium 4.5 Chloride 99 Carbon Dioxide 34 H Anion Gap 5 L BUN 27.7 H Creatinine 1.3 Est GFR (CKD-EPI)AfAm 56.46 Est GFR (CKD-EPI)NonAf 48.72 POC Glucometer Random Glucose 168 H Calcium 9.1 Total Bilirubin 0.5 AST 38 H ALT 59 Alkaline Phosphatase 126 H Total Protein 6.9 Albumin 2.8 L COVID-19 (DESIRAE) Active Medications Generic Name Dose Route Start Last Admin Trade Name Freq PRN Reason Stop Dose Admin Acetaminophen 650 mg 11/07/19 16:00 11/08/19 09:37 Tylenol - PO 650 mg Q6H PRN Administration PAIN LEVEL 6-10 Albuterol Sulfate 2 puff 11/01/19 17:33 11/01/19 18:22 Ventolin Hfa Inhaler - IH 2 puff Q4H PRN Administration SHORT OF BREATH/WHEEZING Apixaban 5 mg 11/01/19 10:00 11/12/19 10:07 Eliquis - PO 5 mg BID NELSY Administration Atorvastatin Calcium 10 mg 11/01/19 22:00 11/11/19 21:17 Lipitor - PO 10 mg HS NELSY Administration Budesonide/Formoterol Fumarate 2 puff 11/01/19 22:00 11/12/19 10:09 Symbicort 80/4.5mcg - IH 2 puff BID NELSY Administration Colchicine 0.6 mg 11/07/19 14:00 11/12/19 10:08 Colcrys PO 0.6 mg DAILY NELSY Administration Famotidine 20 mg 11/07/19 13:15 11/12/19 10:09 Pepcid - PO 20 mg DAILY NELSY Administration Furosemide 20 mg 11/02/19 10:00 11/12/19 10:08 Lasix - PO 20 mg DAILY NELSY Administration Gabapentin 300 mg 11/08/19 10:00 11/12/19 10:07 Neurontin - PO 300 mg DAILY NELSY Administration Insulin Aspart 1 vial 10/31/19 22:00 11/12/19 11:37 Novolog Vial Sliding Scale - SQ 2 unit ACHS NELSY Administration Protocol Levothyroxine Sodium 100 mcg 11/02/19 07:00 11/12/19 07:08 Synthroid - PO 100 mcg AM NELSY Administration Metoprolol Succinate 50 mg 11/02/19 10:03 11/12/19 10:07 Toprol Xl - PO 50 mg DAILY NELSY Administration Polyethylene Glycol 17 gm 11/11/19 10:00 11/12/19 10:08 Miralax (For Daily Use) - PO 17 gm DAILY NELSY Administration Senna 1 tab 11/11/19 10:00 11/12/19 10:08 Senna - PO 1 tab BID NELSY Administration Spironolactone 25 mg 11/01/19 10:00 11/12/19 10:07 Aldactone - PO 25 mg DAILY NELSY Administration Thiamine HCl 250 mg 11/05/19 12:24 11/12/19 10:10 Vitamin B1 - PO 250 mg DAILY NELSY Administration ASSESSMENT/PLAN: 88 M UTI sp abx Gout attack on Colcrys Delirium 2/2 UTI HTN HFrEF Afib on Eliquis Prior Etoh abuse Etoh induced dementia HLD Hypothyroidism COVId negative COPD Plan: Received course of abx and Colcrys for gout attack w/ improvement of symptoms DC tele and downgrade Awaiting insurance/family approval for SNF placement Frequent re-orientation, try to avoid psychtropic meds, light therapy, watch sundowning Cont. HF meds DVT ppx: Eliquis Visit type - Emergency Visit Emergency Visit: Yes ED Registration Date: 10/31/19 Care time: The patient presented to the Emergency Department on the above date and was hospitalized for further evaluation of their emergent condition. - New Patient This patient is new to me today: Yes Date on this admission: 11/12/19 - Critical Care Critical Care patient: No - Discharge Referral Referred to [facility] Med P.C.: No - Medication Review Med list reviewed for High Risk Meds patients 65 and older: Yes
[2019-11-12] MEDS: ATORVASTATIN CA 10 MG TABLET (FP) PO SCH (21:29)
[2019-11-13] MEDS: INSULIN SLIDING SCALE (NOVOLOG) 1 VIAL SQ SCH ×4 (06:05→21:17)
[2019-11-13] MEDS: LEVOTHYROXINE NA 100 MCG TABLET (FP) PO SCH (06:05)
[2019-11-13] MEDS ORDERED: PT OWN MED DRAWER 7, Y5N ONE (09:54)
[2019-11-13] MEDS: COLCHICINE 0.6 MG TAB PO SCH (10:01)
[2019-11-13] MEDS: FAMOTIDINE 20 MG TABLET PO SCH (10:01)
[2019-11-13] MEDS: metoPROLOL SUCCINATE 25 MG TAB.SR.24H (FP) PO SCH (10:01)
[2019-11-13] MEDS: POLYETHYLENE GLYCOL 3350 119 GM BTL PO SCH (10:02)
[2019-11-13] MEDS: GABAPENTIN 300 MG CAPSULE PO SCH (10:02)
[2019-11-13] MEDS: SENNOSIDES 8.6MG TABLET (FP) PO SCH ×2 (10:02→21:17)
[2019-11-13] MEDS: SPIRONOLACTONE 25 MG TABLET PO SCH (10:02)
[2019-11-13] MEDS: APIXABAN 5 MG TABLET PO SCH ×2 (10:02→21:16)
[2019-11-13] MEDS: BUDESONIDE/FORMETEROL FUMARATE 80/4.5 mcg INHALER IH SCH ×2 (10:02→21:18)
[2019-11-13] MEDS: FUROSEMIDE 20 MG TABLET (FP) PO SCH (10:02)
[2019-11-13] MEDS: THIAMINE HCL 100 MG TABLET (FP) PO SCH (10:03)
--- NOTE | 2019-11-13 10:43 | PN ---
Progress Note (short form) - Note Progress Note: s: no distress no CP/SOB/palps History of Present Illness: Current Medications Generic Name Dose Route Start Last Admin Trade Name Freq PRN Reason Stop Dose Admin Acetaminophen 650 mg 11/07/19 16:00 11/08/19 09:37 Tylenol - PO 650 mg Q6H PRN Administration PAIN LEVEL 6-10 Albuterol Sulfate 2 puff 11/01/19 17:33 11/01/19 18:22 Ventolin Hfa Inhaler - IH 2 puff Q4H PRN Administration SHORT OF BREATH/WHEEZING Apixaban 5 mg 11/01/19 10:00 11/13/19 10:02 Eliquis - PO 5 mg BID NELSY Administration Atorvastatin Calcium 10 mg 11/01/19 22:00 11/12/19 21:29 Lipitor - PO 10 mg HS NELSY Administration Budesonide/Formoterol Fumarate 2 puff 11/01/19 22:00 11/13/19 10:02 Symbicort 80/4.5mcg - IH 2 puff BID NELSY Administration Colchicine 0.6 mg 11/07/19 14:00 11/13/19 10:01 Colcrys PO 0.6 mg DAILY NELSY Administration Famotidine 20 mg 11/07/19 13:15 11/13/19 10:01 Pepcid - PO 20 mg DAILY NELSY Administration Furosemide 20 mg 11/02/19 10:00 11/13/19 10:02 Lasix - PO 20 mg DAILY NELSY Administration Gabapentin 300 mg 11/08/19 10:00 11/13/19 10:02 Neurontin - PO 300 mg DAILY NELSY Administration Insulin Aspart 1 vial 10/31/19 22:00 11/13/19 06:05 Novolog Vial Sliding Scale - SQ Not Given ACHS NELSY Protocol Levothyroxine Sodium 100 mcg 11/02/19 07:00 11/13/19 06:05 Synthroid - PO 100 mcg AM NELSY Administration Metoprolol Succinate 50 mg 11/02/19 10:03 11/13/19 10:01 Toprol Xl - PO 50 mg DAILY NELSY Administration Polyethylene Glycol 17 gm 11/11/19 10:00 11/13/19 10:02 Miralax (For Daily Use) - PO 17 gm DAILY NELSY Administration Senna 1 tab 11/11/19 10:00 11/13/19 10:02 Senna - PO 1 tab BID NELSY Administration Spironolactone 25 mg 11/01/19 10:00 11/13/19 10:02 Aldactone - PO 25 mg DAILY NELSY Administration Thiamine HCl 250 mg 11/05/19 12:24 11/13/19 10:03 Vitamin B1 - PO 250 mg DAILY NELSY Administration Vital Signs Period Temp Pulse Resp BP Sys/Yañez Pulse Ox Last 24 Hr 97.7 F-98.7 F 69-79 18-20 109-128/58-64 96-96 Constitutional: Yes: No Distress, Calm Cardiovascular: Yes: Pulse Irregular Respiratory: Yes: Rhonchi Gastrointestinal: Yes: Soft (nt) Edema: No Neurological: Yes: Alert, Oriented ...Motor Strength: WNL no jaundice diaphoresis Labs: CBC, BMP 11/12/19 11:40 11/12/19 11:40 - ....Imaging EKG: Image Reviewed Assessment/Plan a/p: 88 yo with h/o 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, non-obstructive cad, mod MR, afib with h/o cva (on eliquis), htn, hl, s/p remote LE bypass in setting of LE trauma, hypothyroid, BPH, prior heavy alcohol use, folate deficiency anemia, h/o throat CA s/p XRT, here with ams and UTI non-obstructive cad: -no signs acs - ASA stopped as he is on full AC and risk of bleeding in this age group is elevated -cont statin, bb 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
--- NOTE | 2019-11-13 14:19 | PN ---
Physical Exam: SUBJECTIVE: Patient seen and examined at bedside, no overnight events, awaiting SNF placement. VSS. OBJECTIVE: GENERAL: The patient is awake and alert, NAD, engaging in conversation, AAox1 HEAD: Normal with no signs of trauma. EYES: Sclera anicteric, conjunctiva clear. ENT: Dry mucous membranes. LUNGS: Breath sounds equal, clear to auscultation bilaterally anteriorly, no wheezes, no crackles, no accessory muscle use. HEART: Regular rate and rhythm, S1, S2 without murmur ABDOMEN: Soft, obese, nontender, distended, normoactive bowel sounds, no guarding, no rebound EXTREMITIES: 2+ dorsal pedal pulses , warm, well-perfused. NEUROLOGICAL: Normal speech, gait not observed. PSYCH: slightly confused, calm SKIN: Warm, dry, normal turgor, no rashes or lesions noted Vital Signs (72 hours) 11/10/19 11/10/19 11/10/19 18:00 21:00 22:00 Temperature 98.4 F 98.6 F Pulse Rate 82 82 Respiratory 20 18 Rate Blood Pressure 121/64 122/87 O2 Sat by Pulse 100 100 Oximetry (%) 11/11/19 11/11/19 11/11/19 06:00 09:00 10:00 Temperature 98.2 F 98.3 F Pulse Rate 94 H 87 Respiratory 18 18 Rate Blood Pressure 133/70 113/66 O2 Sat by Pulse 96 96 Oximetry (%) 11/11/19 11/11/19 11/11/19 14:00 18:00 21:00 Temperature 97.8 F 97.8 F Pulse Rate 90 88 Respiratory 18 16 Rate Blood Pressure 142/85 117/69 O2 Sat by Pulse 96 95 Oximetry (%) 11/11/19 11/12/19 11/12/19 22:00 06:00 09:00 Temperature 97.1 F L 98.1 F Pulse Rate 88 83 Respiratory 18 18 18 Rate Blood Pressure 120/65 126/66 O2 Sat by Pulse 95 94 L 95 Oximetry (%) 11/12/19 11/12/19 11/12/19 10:00 14:00 18:00 Temperature 98.0 F 98.7 F 97.7 F Pulse Rate 77 79 70 Respiratory 18 20 19 Rate Blood Pressure 117/68 128/64 109/62 O2 Sat by Pulse 95 96 Oximetry (%) 11/12/19 11/12/19 11/13/19 21:00 21:39 06:00 Temperature 97.9 F 97.9 F Pulse Rate 76 69 Respiratory 18 18 18 Rate Blood Pressure 125/63 128/58 L O2 Sat by Pulse 96 96 96 Oximetry (%) 11/13/19 11/13/19 09:00 10:00 Temperature 97.7 F Pulse Rate 77 Respiratory 18 18 Rate Blood Pressure 122/61 O2 Sat by Pulse 96 96 Oximetry (%) Microbiology 11/06/19 17:00 Urine - Urine Clean Catch Urine Culture - Final NO GROWTH OBTAINED 10/31/19 17:00 Urine - Urine - Catheterized Urine Culture - Final Staphylococcus Warneri Laboratory Results - last 24 hr 11/12/19 21:25 POC Glucometer 220 Home Medications Medication Instructions Recorded Apixaban [Eliquis] 5 mg PO DAILY 03/13/17 Lisinopril [Zestril] 5 mg PO DAILY 03/13/17 Metoprolol Succinate 25 mg PO DAILY 03/13/17 Spironolactone [Aldactone] 25 mg PO DAILY 03/13/17 Furosemide [Lasix] 20 mg PO DAILY 11/01/19 Ipratropium/Albuterol Sulfate 1 amp IH Q4H PRN 11/01/19 [Iprat-Albut 0.5-3(2.5) mg/3 ml] Levothyroxine [Synthroid -] 100 mcg PO DAILY 11/01/19 Pravastatin Sodium 10 mg PO HS 11/01/19 Current Medications Generic Name Dose Route Start Last Admin Trade Name Freq PRN Reason Stop Dose Admin Acetaminophen 650 mg 11/07/19 16:00 11/08/19 09:37 Tylenol - PO 650 mg Q6H PRN Administration PAIN LEVEL 6-10 Albuterol Sulfate 2 puff 11/01/19 17:33 11/01/19 18:22 Ventolin Hfa Inhaler - IH 2 puff Q4H PRN Administration SHORT OF BREATH/WHEEZING Apixaban 5 mg 11/01/19 10:00 11/13/19 10:02 Eliquis - PO 5 mg BID NELSY Administration Atorvastatin Calcium 10 mg 11/01/19 22:00 11/12/19 21:29 Lipitor - PO 10 mg HS NELSY Administration Budesonide/Formoterol Fumarate 2 puff 11/01/19 22:00 11/13/19 10:02 Symbicort 80/4.5mcg - IH 2 puff BID NELSY Administration Colchicine 0.6 mg 11/07/19 14:00 11/13/19 10:01 Colcrys PO 0.6 mg DAILY NELSY Administration Famotidine 20 mg 11/07/19 13:15 11/13/19 10:01 Pepcid - PO 20 mg DAILY NELSY Administration Furosemide 20 mg 11/02/19 10:00 11/13/19 10:02 Lasix - PO 20 mg DAILY NELSY Administration Gabapentin 300 mg 11/08/19 10:00 11/13/19 10:02 Neurontin - PO 300 mg DAILY NELSY Administration Insulin Aspart 1 vial 10/31/19 22:00 11/13/19 11:31 Novolog Vial Sliding Scale - SQ 4 unit ACHS NELSY Administration Protocol Levothyroxine Sodium 100 mcg 11/02/19 07:00 11/13/19 06:05 Synthroid - PO 100 mcg AM NELSY Administration Metoprolol Succinate 50 mg 11/02/19 10:03 11/13/19 10:01 Toprol Xl - PO 50 mg DAILY NELSY Administration Polyethylene Glycol 17 gm 11/11/19 10:00 11/13/19 10:02 Miralax (For Daily Use) - PO 17 gm DAILY NELSY Administration Senna 1 tab 11/11/19 10:00 11/13/19 10:02 Senna - PO 1 tab BID NELSY Administration Spironolactone 25 mg 11/01/19 10:00 11/13/19 10:02 Aldactone - PO 25 mg DAILY NELSY Administration Thiamine HCl 250 mg 11/05/19 12:24 11/13/19 10:03 Vitamin B1 - PO 250 mg DAILY NELSY Administration A/P: 88 M UTI sp abx Gout attack on Colcrys Delirium 2/2 UTI HTN HFrEF Afib on Eliquis Prior Etoh abuse Etoh induced dementia HLD Hypothyroidism COVId negative COPD Plan: Received course of abx and Colcrys for gout attack w/ improvement of symptoms DC tele and downgrade when bed is available Awaiting insurance/family approval for SNF placement Frequent re-orientation, try to avoid psychtropic meds, light therapy, watch sundowning Cont. HF meds DVT ppx: Eliquis Visit type - Emergency Visit Emergency Visit: Yes ED Registration Date: 10/31/19 Care time: The patient presented to the Emergency Department on the above date and was hospitalized for further evaluation of their emergent condition. - New Patient This patient is new to me today: No - Critical Care Critical Care patient: No - Discharge Referral Referred to [facility] Med P.C.: No - Medication Review Med list reviewed for High Risk Meds patients 65 and older: Yes
[2019-11-13] MEDS: ATORVASTATIN CA 10 MG TABLET (FP) PO SCH (21:16)
[2019-11-14] MEDS: INSULIN SLIDING SCALE (NOVOLOG) 1 VIAL SQ SCH ×4 (06:15→21:51)
[2019-11-14] MEDS: LEVOTHYROXINE NA 100 MCG TABLET (FP) PO SCH (06:32)
[2019-11-14] MEDS ORDERED: PT OWN MED DRAWER 7, Y5N ONE ×2 (08:31→09:05)
[2019-11-14] MEDS: GABAPENTIN 300 MG CAPSULE PO SCH (09:11)
[2019-11-14] MEDS: FAMOTIDINE 20 MG TABLET PO SCH (09:11)
[2019-11-14] MEDS: FUROSEMIDE 20 MG TABLET (FP) PO SCH (09:11)
[2019-11-14] MEDS: SENNOSIDES 8.6MG TABLET (FP) PO SCH ×2 (09:11→21:52)
[2019-11-14] MEDS: metoPROLOL SUCCINATE 25 MG TAB.SR.24H (FP) PO SCH (09:11)
[2019-11-14] MEDS: THIAMINE HCL 100 MG TABLET (FP) PO SCH (09:12)
[2019-11-14] MEDS: POLYETHYLENE GLYCOL 3350 119 GM BTL PO SCH (09:12)
[2019-11-14] MEDS: APIXABAN 5 MG TABLET PO SCH ×2 (09:12→21:51)
[2019-11-14] MEDS: BUDESONIDE/FORMETEROL FUMARATE 80/4.5 mcg INHALER IH SCH ×2 (09:12→21:52)
[2019-11-14] MEDS: SPIRONOLACTONE 25 MG TABLET PO SCH (09:12)
[2019-11-14] MEDS: COLCHICINE 0.6 MG TAB PO SCH (09:16)
--- NOTE | 2019-11-14 10:35 | PN ---
Progress Note (short form) - Note Progress Note: s: no distress no CP/SOB/palps History of Present Illness: Current Medications Generic Name Dose Route Start Last Admin Trade Name Freq PRN Reason Stop Dose Admin Acetaminophen 650 mg 11/07/19 16:00 11/08/19 09:37 Tylenol - PO 650 mg Q6H PRN Administration PAIN LEVEL 6-10 Albuterol Sulfate 2 puff 11/01/19 17:33 11/01/19 18:22 Ventolin Hfa Inhaler - IH 2 puff Q4H PRN Administration SHORT OF BREATH/WHEEZING Apixaban 5 mg 11/01/19 10:00 11/14/19 09:12 Eliquis - PO 5 mg BID NELSY Administration Atorvastatin Calcium 10 mg 11/01/19 22:00 11/13/19 21:16 Lipitor - PO 10 mg HS NELSY Administration Budesonide/Formoterol Fumarate 2 puff 11/01/19 22:00 11/14/19 09:12 Symbicort 80/4.5mcg - IH 2 puff BID NELSY Administration Colchicine 0.6 mg 11/07/19 14:00 11/14/19 09:16 Colcrys PO 0.6 mg DAILY NELSY Administration Famotidine 20 mg 11/07/19 13:15 11/14/19 09:11 Pepcid - PO 20 mg DAILY NELSY Administration Furosemide 20 mg 11/02/19 10:00 11/14/19 09:11 Lasix - PO 20 mg DAILY NELSY Administration Gabapentin 300 mg 11/08/19 10:00 11/14/19 09:11 Neurontin - PO 300 mg DAILY NELSY Administration Insulin Aspart 1 vial 10/31/19 22:00 11/14/19 06:15 Novolog Vial Sliding Scale - SQ Not Given ACHS [facility] Protocol Levothyroxine Sodium 100 mcg 11/02/19 07:00 11/14/19 06:32 Synthroid - PO 100 mcg AM NELSY Administration Metoprolol Succinate 50 mg 11/02/19 10:03 11/14/19 09:11 Toprol Xl - PO 50 mg DAILY NELSY Administration Polyethylene Glycol 17 gm 11/11/19 10:00 11/14/19 09:12 Miralax (For Daily Use) - PO 17 gm DAILY NELSY Administration Senna 1 tab 11/11/19 10:00 11/14/19 09:11 Senna - PO 1 tab BID NELSY Administration Spironolactone 25 mg 11/01/19 10:00 11/14/19 09:12 Aldactone - PO 25 mg DAILY NELSY Administration Thiamine HCl 250 mg 11/05/19 12:24 11/14/19 09:12 Vitamin B1 - PO 250 mg DAILY NELSY Administration Vital Signs Period Temp Pulse Resp BP Sys/Yañez Pulse Ox Last 24 Hr 97.7 F-98.6 F 67-82 18-20 110-147/53-86 95-96 Constitutional: Yes: No Distress, Calm Cardiovascular: Yes: Pulse Irregular Respiratory: Yes: Rhonchi Gastrointestinal: Yes: Soft (nt) Edema: No Neurological: Yes: Alert, Oriented ...Motor Strength: WNL no jaundice diaphoresis Labs: CBC, BMP 11/12/19 11:40 11/12/19 11:40 - ....Imaging EKG: Image Reviewed Assessment/Plan a/p: 88 yo with h/o 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, non-obstructive cad, 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, afib with h/o cva (on eliquis), htn, hl, s/p remote LE bypass in setting of LE trauma, hypothyroid, BPH, prior heavy alcohol use, folate deficiency anemia, h/o throat CA s/p XRT, here with ams and UTI non-obstructive cad: -no signs acs - ASA stopped as he is on full AC and risk of bleeding in this age group is elevated -cont statin, bb 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
--- NOTE | 2019-11-14 10:43 | PN ---
Progress Note, Physician History of Present Illness: no new issues confusion much better - Current Medication List Current Medications: Active Medications Acetaminophen (Tylenol -) 650 mg PO Q6H PRN PRN Reason: PAIN LEVEL 6-10 Last Admin: 11/08/19 09:37 Dose: 650 mg Documented by: Albuterol Sulfate (Ventolin Hfa Inhaler -) 2 puff IH Q4H PRN PRN Reason: SHORT OF BREATH/WHEEZING Last Admin: 11/01/19 18:22 Dose: 2 puff Documented by: Apixaban (Eliquis -) 5 mg PO BID [facility] Last Admin: 11/14/19 09:12 Dose: 5 mg Documented by: Atorvastatin Calcium (Lipitor -) 10 mg PO HS [facility] Last Admin: 11/13/19 21:16 Dose: 10 mg Documented by: Budesonide/Formoterol Fumarate (Symbicort 80/4.5mcg -) 2 puff IH BID [facility] Last Admin: 11/14/19 09:12 Dose: 2 puff Documented by: Colchicine (Colcrys) 0.6 mg PO DAILY [facility] Last Admin: 11/14/19 09:16 Dose: 0.6 mg Documented by: Famotidine (Pepcid -) 20 mg PO DAILY [facility] Last Admin: 11/14/19 09:11 Dose: 20 mg Documented by: Furosemide (Lasix -) 20 mg PO DAILY [facility] Last Admin: 11/14/19 09:11 Dose: 20 mg Documented by: Gabapentin (Neurontin -) 300 mg PO DAILY [facility] Last Admin: 11/14/19 09:11 Dose: 300 mg Documented by: Insulin Aspart (Novolog Vial Sliding Scale -) 1 vial SQ [facility]; Protocol Last Admin: 11/14/19 06:15 Dose: Not Given Documented by: Levothyroxine Sodium (Synthroid -) 100 mcg PO AM [facility] Last Admin: 11/14/19 06:32 Dose: 100 mcg Documented by: Metoprolol Succinate (Toprol Xl -) 50 mg PO DAILY [facility] Last Admin: 11/14/19 09:11 Dose: 50 mg Documented by: Polyethylene Glycol (Miralax (For Daily Use) -) 17 gm PO DAILY [facility] Last Admin: 11/14/19 09:12 Dose: 17 gm Documented by: Senna (Senna -) 1 tab PO BID [facility] Last Admin: 11/14/19 09:11 Dose: 1 tab Documented by: Spironolactone (Aldactone -) 25 mg PO DAILY [facility] Last Admin: 11/14/19 09:12 Dose: 25 mg Documented by: Thiamine HCl (Vitamin B1 -) 250 mg PO DAILY [facility] Last Admin: 11/14/19 09:12 Dose: 250 mg Documented by: - Objective Vital Signs: Vital Signs Temperature 97.8 F 11/14/19 09:35 Pulse Rate 67 11/14/19 09:35 Respiratory Rate 18 11/14/19 09:35 Blood Pressure 120/86 11/14/19 09:35 O2 Sat by Pulse Oximetry (%) 96 11/14/19 09:35 Constitutional: Yes: No Distress, Calm Cardiovascular: Yes: S1, S2 Respiratory: Yes: Regular, CTA Bilaterally Gastrointestinal: Yes: Normal Bowel Sounds, Soft Musculoskeletal: Yes: WNL Extremities: Yes: WNL Neurological: Yes: Alert Psychiatric: Yes: Alert Labs: CBC, BMP 11/12/19 11:40 11/12/19 11:40 INR, PTT INR 1.13 (0.83-1.09) H 10/31/19 18:00 Assessment/Plan Problem List - Problems (1) AMS (altered mental status) Code(s): R41.82 - ALTERED MENTAL STATUS, UNSPECIFIED (2) UTI (urinary tract infection) Code(s): N39.0 - URINARY TRACT INFECTION, SITE NOT SPECIFIED Qualifiers: (3) Atrial fibrillation Code(s): I48.91 - UNSPECIFIED ATRIAL FIBRILLATION Qualifiers: Atrial fibrillation type: chronic (4) HLD (hyperlipidemia) Code(s): E78.5 - HYPERLIPIDEMIA, UNSPECIFIED (5) HTN (hypertension) Code(s): I10 - ESSENTIAL (PRIMARY) HYPERTENSION (6) Hypothyroid Code(s): E03.9 - HYPOTHYROIDISM, UNSPECIFIED Assessment/Plan AMS UTI AFIB s/p CVA HTN continue to monitor rest as per the team
--- NOTE | 2019-11-14 11:58 | PN ---
Teaching Attending Note Name of Resident: Elliot Iniguez ATTENDING PHYSICIAN STATEMENT I saw and evaluated the patient. I reviewed the resident's note and discussed the case with the resident. I agree with the resident's findings and plan as documented. SUBJECTIVE: Seen and examined at bedside. Patient appears well, no complaints. Foot pain significantly improved. Medically cleared for discharge to [facility] pending placement. OBJECTIVE Last Vital Signs Temp Pulse Resp BP Pulse Ox 97.8 F 67 18 120/86 96 11/14/19 09:35 11/14/19 09:35 11/14/19 09:35 11/14/19 09:35 11/14/19 09:35 PE: Per resident note Labs/Imaging: reviewed ASSESSMENT/PLAN 80-year-old female with past medical history of A. fib on Eliquis, CVA, hypertension, hyperlipidemia, hypothyroidism, heart failure with reduced ejection fraction presents with AMS. Found to have elevated white count and dehydration. #Acute metabolic encephalopathy Differential includes worsening vascular dementia from stroke, dehydration due to poor oral intake, and possible infection MRI brain no acute infarct UTI contaminated White count improving with antibiotics: Status post 7 days ceftriaxone Psych consult appreciated #hypoxia: resolved #Delirium:improving #Acute gout flare On colchicine. Give for 2 additional days to complete on 11/15 #Positive urinalysis Urinalysis was contaminated Status post 7 days ceftriaxone #History of CVA Continue pravastatin Aspirin discontinued as patient is on Eliquis and is high bleeding risk due to age #Chronic A. fib on Eliquis Continue home medications Cardiology on board #Heart failure with reduced ejection fraction: At baseline Continue home occasions Dispo: Medically cleared for discharge to [facility] pending placement.
--- NOTE | 2019-11-14 17:40 | PN ---
Physical Exam: SUBJECTIVE: Patient seen and examined. No acute events overnight. Pt. awaiting placement at subacute rehab. Crystal Williamson aware of situation already. OBJECTIVE: Vital Signs Period Temp Pulse Resp BP Sys/Yañez Pulse Ox Last 24 Hr 97.4 F-98.6 F 67-84 18-18 113-156/60-86 95-96 GENERAL: The patient is A&O x 1.5( knew he was in [place] today), in no acute distress. HEAD: Normal with no signs of trauma. EYES: Sclera anicteric, conjunctiva clear. ENT: Dry mucous membranes. LUNGS: Breath sounds equal, clear to auscultation bilaterally anteriorly, no wheezes, no crackles, no accessory muscle use. HEART: Regular rate and rhythm, S1, S2 without murmur ABDOMEN: Soft, obese, nontender, nondistended but protuberant, dull to percussion with fluid wave, normoactive bowel sounds, no guarding, no rebound EXTREMITIES: 2+ dorsal pedal pulses , warm, well-perfused, toes TTP, erythematous NEUROLOGICAL: Normal speech, gait not observed. PSYCH: Normal mood, normal affect. SKIN: Warm, dry, normal turgor, no rashes or lesions noted Laboratory Results - last 24 hr 11/14/19 11:14 POC Glucometer 226 Active Medications Generic Name Dose Route Start Last Admin Trade Name Freq PRN Reason Stop Dose Admin Acetaminophen 650 mg 11/07/19 16:00 11/08/19 09:37 Tylenol - PO 650 mg Q6H PRN Administration PAIN LEVEL 6-10 Albuterol Sulfate 2 puff 11/01/19 17:33 11/01/19 18:22 Ventolin Hfa Inhaler - IH 2 puff Q4H PRN Administration SHORT OF BREATH/WHEEZING Apixaban 5 mg 11/01/19 10:00 11/14/19 09:12 Eliquis - PO 5 mg BID NELSY Administration Atorvastatin Calcium 10 mg 11/01/19 22:00 11/13/19 21:16 Lipitor - PO 10 mg HS NELSY Administration Budesonide/Formoterol Fumarate 2 puff 11/01/19 22:00 11/14/19 09:12 Symbicort 80/4.5mcg - IH 2 puff BID NELSY Administration Colchicine 0.6 mg 11/07/19 14:00 11/14/19 09:16 Colcrys PO 0.6 mg DAILY NELSY Administration Famotidine 20 mg 11/07/19 13:15 11/14/19 09:11 Pepcid - PO 20 mg DAILY NELSY Administration Furosemide 20 mg 11/02/19 10:00 11/14/19 09:11 Lasix - PO 20 mg DAILY NELSY Administration Gabapentin 300 mg 11/08/19 10:00 11/14/19 09:11 Neurontin - PO 300 mg DAILY NELSY Administration Insulin Aspart 1 vial 10/31/19 22:00 11/14/19 17:02 Novolog Vial Sliding Scale - SQ 4 units ACHS NELSY Administration Protocol Levothyroxine Sodium 100 mcg 11/02/19 07:00 11/14/19 06:32 Synthroid - PO 100 mcg AM NELSY Administration Metoprolol Succinate 50 mg 11/02/19 10:03 11/14/19 09:11 Toprol Xl - PO 50 mg DAILY NELSY Administration Polyethylene Glycol 17 gm 11/11/19 10:00 11/14/19 09:12 Miralax (For Daily Use) - PO 17 gm DAILY NELSY Administration Senna 1 tab 11/11/19 10:00 11/14/19 09:11 Senna - PO 1 tab BID NELSY Administration Spironolactone 25 mg 11/01/19 10:00 11/14/19 09:12 Aldactone - PO 25 mg DAILY NELSY Administration Thiamine HCl 250 mg 11/05/19 12:24 11/14/19 09:12 Vitamin B1 - PO 250 mg DAILY NELSY Administration ASSESSMENT/PLAN: Pt. is an 88 y.o. M w/ PMHx. of Afib on Eliquis, Hx. of CVA, HTN, HLD, Hypothyroidism, HFrEF, and CAD presents to the ED with AMS. As per daughter, normally A&O x3 but then only oriented to name. In the ED, denies any complaint. Physical notable for mild suprapubic pain. Labs notable for UA(contaminated with multiple epithelial cells). Admitted for AMS, possibly 2/2 to UTI #Acute Metabolic encephalopathy --possibly 2/2 hospital delirium -CTH: possible small chronic b/l cerebral (Left frontal, left occipital and Right parietal) infarcts. Note is again made of a 2cm full-thickeness perforation of the cartilaginous nasal septum -MRI brain: no acute infarct -Serum EtOH <3 -UA: protein 3+, LE 2+, WBC 467, bact 66; epith >36 -UCX Negative to date -RPR Negative -TSH wnl -Ceftriaxone completed -Abd. US positive for multiple right renal cysts and gall stones without evidence of obstruction or cholecystitis. -NH3: 27 -Would suggest starting Seroquel however daughter refused this medication. -Psych consult appreciated as Pt. now with reported visual hallucinations -Start and D/c with Thiamine 100mg daily #Acute Gout Flare -elevated Uric acid -c/w Colchicine until 11/15 -d/c Unasyn as low likelihood of superimposed cellulitis and Pt. completed 7 days of Ceftriaxone #Hx. of CVA --not documented in chart - c/w ASA 81 (started during this admission), c/w Pravastatin 10 #Chronic Afib -c/w home eliquis -Metoprolol increased to 50mg -Cardiology consult appreciated #HFrEF --not in exacerbation - Echo(11/18/16): mod-severed reduced LV systolic function LVEF 45.6%, mod global hypokinesis of the LV. RA is mod-severely dilated. Moderate TR. RVSP 46mmHg - c/w home metoprolol, spironolactone and Lasix #FEN - No IVF, encourage PO intake - monitor electrolyts and replete as needed - Dysphagia chopped diet as Pt. does not have dentures with him, no MBS indicated at this time - Eliquis 5 mg BID #Dispo Pt. pending acceptance for subacute rehab, can monitor in M/S (Transfer orders already in system) Visit type - Emergency Visit Emergency Visit: Yes ED Registration Date: 10/31/19 Care time: The patient presented to the Emergency Department on the above date and was hospitalized for further evaluation of their emergent condition. - New Patient This patient is new to me today: No - Critical Care Critical Care patient: No - Discharge Referral [facility]erred to [facility] Med P.C[facility] No - Medication Review Med list reviewed for High Risk Meds patients 65 and older: Yes ATTENDING PHYSICIAN STATEMENT I saw and evaluated the patient. I reviewed the resident's note and discussed the case with the resident. I agree with the resident's findings and plan as documented. SUBJECTIVE: OBJECTIVE: ASSESSMENT AND PLAN:
[2019-11-14] MEDS: ATORVASTATIN CA 10 MG TABLET (FP) PO SCH (21:51)
[2019-11-15] MEDS: LEVOTHYROXINE NA 100 MCG TABLET (FP) PO SCH (06:32)
[2019-11-15] MEDS: INSULIN SLIDING SCALE (NOVOLOG) 1 VIAL SQ SCH ×4 (06:32→21:08)
[2019-11-15 06:46] LABS: HEMATOCRIT 40.7 % (35.4-49); HEMOGLOBIN 13.6 GM/dL (11.7-16.9); MCHC 33.5 g/dl (32.0-35.9); MEAN CELL VOLUME 98.6 fl (80-96); MEAN PLT VOLUME 8.8 fl (7.5-11.1); PLATELET COUNT 278 K/MM3 (134-434); RBC 4.12 M/mm3 (4.00-5.60); RDW 12.5 % (11.9-15.9); WHITE BLOOD COUNT 8.3 K/mm3 (4.0-10.0)
[2019-11-15 07:29] LABS: BLOOD UREA NITROGEN 22.7 mg/dL (7-18); CALCIUM 8.9 mg/dL (8.5-10.1); CREATININE 1.1 mg/dL (0.55-1.3); MAGNESIUM 2.1 mg/dL (1.8-2.4); POTASSIUM 5.1 mmol/L (3.5-5.1)
--- NOTE | 2019-11-15 11:07 | PN ---
Progress Note, ROOF MECH[employer]IC - Note Progress Note: Selected Entries 11/09/19 11/09/19 11/09/19 10:00 13:38 15:00 Breakfast 100% Diet Tolerated Well Refused Refused Lunch 0 0 Supper Temperature Pulse Rate Blood Pressure 11/09/19 11/10/19 21:03 06:00 Breakfast Diet Tolerated Well Lunch Supper 100% Temperature 98.0 F Pulse Rate 88 Blood Pressure 140/88 Laboratory Tests 11/09/19 07:00 WBC 8.6 Selected Entries 11/10/19 11/10/19 11/10/19 10:42 14:00 15:00 Breakfast 75% Diet Tolerated Well Well Well Lunch 75% 75% Supper 50% Temperature 11/10/19 11/11/19 18:00 06:00 Breakfast Diet Tolerated Well Lunch Supper 50% Temperature 98.2 F Laboratory Tests 11/09/19 07:00 WBC 8.6 Selected Entries 11/14/19 11/14/19 11/15/19 11:14 13:35 05:55 Breakfast 100% Diet Tolerated Well Well Lunch 25% Temperature 98.2 F 11/15/19 10:41 Breakfast 100% Diet Tolerated Well Lunch Temperature Laboratory Tests 11/15/19 06:21 WBC 8.3 Downgraded to Dys puree/nectar with aspiration precautions- Aspiration precautions sign and recommendation sign posted for staff education Magic cup 2 mary HN or [place]
[2019-11-15] MEDS: APIXABAN 5 MG TABLET PO SCH ×2 (11:32→21:08)
[2019-11-15] MEDS: SPIRONOLACTONE 25 MG TABLET PO SCH (11:32)
[2019-11-15] MEDS: FUROSEMIDE 20 MG TABLET (FP) PO SCH (11:32)
[2019-11-15] MEDS: POLYETHYLENE GLYCOL 3350 119 GM BTL PO SCH (11:32)
[2019-11-15] MEDS: GABAPENTIN 300 MG CAPSULE PO SCH (11:33)
[2019-11-15] MEDS: SENNOSIDES 8.6MG TABLET (FP) PO SCH ×2 (11:33→21:10)
[2019-11-15] MEDS: FAMOTIDINE 20 MG TABLET PO SCH (11:33)
[2019-11-15] MEDS: metoPROLOL SUCCINATE 25 MG TAB.SR.24H (FP) PO SCH (11:33)
[2019-11-15] MEDS: BUDESONIDE/FORMETEROL FUMARATE 80/4.5 mcg INHALER IH SCH ×2 (11:34→21:24)
[2019-11-15] MEDS: THIAMINE HCL 100 MG TABLET (FP) PO SCH (11:35)
--- NOTE | 2019-11-15 11:56 | PN ---
Progress Note (short form) - Note Progress Note: s: no chest pain, dyspnea, palps, dizziness Current Medications Generic Name Dose Route Start Last Admin Trade Name Freq PRN Reason Stop Dose Admin Acetaminophen 650 mg 11/07/19 16:00 11/08/19 09:37 Tylenol - PO 650 mg Q6H PRN Administration PAIN LEVEL 6-10 Albuterol Sulfate 2 puff 11/01/19 17:33 11/01/19 18:22 Ventolin Hfa Inhaler - IH 2 puff Q4H PRN Administration SHORT OF BREATH/WHEEZING Apixaban 5 mg 11/01/19 10:00 11/15/19 11:32 Eliquis - PO 5 mg BID NELSY Administration Atorvastatin Calcium 10 mg 11/01/19 22:00 11/14/19 21:51 Lipitor - PO 10 mg HS NELSY Administration Budesonide/Formoterol Fumarate 2 puff 11/01/19 22:00 11/15/19 11:34 Symbicort 80/4.5mcg - IH 2 puff BID NELSY Administration Colchicine 0.6 mg 11/07/19 14:00 11/14/19 09:16 Colcrys PO 0.6 mg DAILY NELSY Administration Famotidine 20 mg 11/07/19 13:15 11/15/19 11:33 Pepcid - PO 20 mg DAILY NELSY Administration Furosemide 20 mg 11/02/19 10:00 11/15/19 11:32 Lasix - PO 20 mg DAILY NELSY Administration Gabapentin 300 mg 11/08/19 10:00 11/15/19 11:33 Neurontin - PO 300 mg DAILY NELSY Administration Insulin Aspart 1 vial 10/31/19 22:00 11/15/19 06:32 Novolog Vial Sliding Scale - SQ Not Given ACHS [facility] Protocol Levothyroxine Sodium 100 mcg 11/02/19 07:00 11/15/19 06:32 Synthroid - PO 100 mcg AM NELSY Administration Metoprolol Succinate 50 mg 11/02/19 10:03 11/15/19 11:33 Toprol Xl - PO 50 mg DAILY NELSY Administration Polyethylene Glycol 17 gm 11/11/19 10:00 11/15/19 11:32 Miralax (For Daily Use) - PO 17 gm DAILY NELSY Administration Senna 1 tab 11/11/19 10:00 11/15/19 11:33 Senna - PO 1 tab BID NELSY Administration Spironolactone 25 mg 11/01/19 10:00 11/15/19 11:32 Aldactone - PO 25 mg DAILY NELSY Administration Thiamine HCl 250 mg 11/05/19 12:24 11/15/19 11:35 Vitamin B1 - PO 250 mg DAILY NELSY Administration Vital Signs Period Temp Pulse Resp BP Sys/Yañez Pulse Ox Last 24 Hr 97.4 F-98.2 F 69-88 18-20 112-156/61-77 93-96 Constitutional: Yes: No Distress, Calm Cardiovascular: Yes: Pulse Irregular Respiratory: Yes: Rhonchi Gastrointestinal: Yes: Soft (nt) Edema: No Neurological: Yes: Alert no jaundice diaphoresis not agitated Assessment/Plan a/p: 88 yo with h/o 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, non-obstructive cad, 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, afib with h/o cva (on eliquis), htn, hl, s/p remote LE bypass in setting of LE trauma, hypothyroid, BPH, prior heavy alcohol use, folate deficiency anemia, h/o throat CA s/p XRT, here with ams and UTI non-obstructive cad: -no signs acs - ASA stopped as he is on eliquis and risk of bleeding in this age group is elevated -cont statin, bb 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
[2019-11-15] MEDS ORDERED: PT OWN MED DRAWER 7, Y5N ONE (12:19)
[2019-11-15] MEDS: COLCHICINE 0.6 MG TAB PO SCH (12:26)
--- NOTE | 2019-11-15 12:31 | PN ---
Teaching Attending Note Name of Resident: Elliot Iniguez ATTENDING PHYSICIAN STATEMENT I saw and evaluated the patient. I reviewed the resident's note and discussed the case with the resident. I agree with the resident's findings and plan as documented. SUBJECTIVE: Seen and examined at bedside. Patient appears well, no complaints. Foot pain significantly improved. Medically cleared for discharge to [facility] pending placement. OBJECTIVE Last Vital Signs Temp Pulse Resp BP Pulse Ox 98.2 F 88 18 122/61 93 L 11/15/19 05:55 11/15/19 05:55 11/15/19 05:55 11/15/19 05:55 11/14/19 22:00 PE: Per resident note Labs/Imaging: reviewed ASSESSMENT/PLAN 80-year-old female with past medical history of A. fib on Eliquis, CVA, hypertension, hyperlipidemia, hypothyroidism, heart failure with reduced ejection fraction presents with AMS. Found to have elevated white count and dehydration. #Acute metabolic encephalopathy Differential includes worsening vascular dementia from stroke, dehydration due to poor oral intake, and possible infection MRI brain no acute infarct UTI contaminated White count improving with antibiotics: Status post 7 days ceftriaxone Psych consult appreciated #hypoxia: resolved #Delirium:improving #Acute gout flare On colchicine. Give for 1 additional days to complete on 11/15 #Positive urinalysis Urinalysis was contaminated Status post 7 days ceftriaxone #History of CVA Continue pravastatin Aspirin discontinued as patient is on Eliquis and is high bleeding risk due to age #Chronic A. fib on Eliquis Continue home medications Cardiology on board #Heart failure with reduced ejection fraction: At baseline Continue home occasions Dispo: Medically cleared for discharge to [facility] pending placement.
--- NOTE | 2019-11-15 12:34 | PN ---
Progress Note, Physician History of Present Illness: stable no new issues - Current Medication List Current Medications: Active Medications Acetaminophen (Tylenol -) 650 mg PO Q6H PRN PRN Reason: PAIN LEVEL 6-10 Last Admin: 11/08/19 09:37 Dose: 650 mg Documented by: Albuterol Sulfate (Ventolin Hfa Inhaler -) 2 puff IH Q4H PRN PRN Reason: SHORT OF BREATH/WHEEZING Last Admin: 11/01/19 18:22 Dose: 2 puff Documented by: Apixaban (Eliquis -) 5 mg PO BID [facility] Last Admin: 11/15/19 11:32 Dose: 5 mg Documented by: Atorvastatin Calcium (Lipitor -) 10 mg PO HS [facility] Last Admin: 11/14/19 21:51 Dose: 10 mg Documented by: Budesonide/Formoterol Fumarate (Symbicort 80/4.5mcg -) 2 puff IH BID [facility] Last Admin: 11/15/19 11:34 Dose: 2 puff Documented by: Colchicine (Colcrys) 0.6 mg PO DAILY [facility] Last Admin: 11/15/19 12:26 Dose: 0.6 mg Documented by: Famotidine (Pepcid -) 20 mg PO DAILY [facility] Last Admin: 11/15/19 11:33 Dose: 20 mg Documented by: Furosemide (Lasix -) 20 mg PO DAILY [facility] Last Admin: 11/15/19 11:32 Dose: 20 mg Documented by: Gabapentin (Neurontin -) 300 mg PO DAILY [facility] Last Admin: 11/15/19 11:33 Dose: 300 mg Documented by: Insulin Aspart (Novolog Vial Sliding Scale -) 1 vial SQ [facility]; Protocol Last Admin: 11/15/19 12:25 Dose: 2 units Documented by: Levothyroxine Sodium (Synthroid -) 100 mcg PO AM [facility] Last Admin: 11/15/19 06:32 Dose: 100 mcg Documented by: Metoprolol Succinate (Toprol Xl -) 50 mg PO DAILY [facility] Last Admin: 11/15/19 11:33 Dose: 50 mg Documented by: Polyethylene Glycol (Miralax (For Daily Use) -) 17 gm PO DAILY [facility] Last Admin: 11/15/19 11:32 Dose: 17 gm Documented by: Senna (Senna -) 1 tab PO BID [facility] Last Admin: 11/15/19 11:33 Dose: 1 tab Documented by: Spironolactone (Aldactone -) 25 mg PO DAILY [facility] Last Admin: 11/15/19 11:32 Dose: 25 mg Documented by: Thiamine HCl (Vitamin B1 -) 250 mg PO DAILY [facility] Last Admin: 11/15/19 11:35 Dose: 250 mg Documented by: - Objective Vital Signs: Vital Signs Temperature 98.2 F 11/15/19 05:55 Pulse Rate 88 11/15/19 05:55 Respiratory Rate 18 11/15/19 05:55 Blood Pressure 122/61 11/15/19 05:55 O2 Sat by Pulse Oximetry (%) 93 L 11/14/19 22:00 Constitutional: Yes: No Distress, Calm Cardiovascular: Yes: S1, S2 Respiratory: Yes: Regular, CTA Bilaterally Gastrointestinal: Yes: Normal Bowel Sounds, Soft Musculoskeletal: Yes: WNL Extremities: Yes: Other Neurological: Yes: Alert, Other Labs: CBC, BMP 11/15/19 06:21 11/15/19 06:21 INR, PTT INR 1.13 (0.83-1.09) H 10/31/19 18:00 Assessment/Plan Problem List - Problems (1) AMS (altered mental status) Code(s): R41.82 - ALTERED MENTAL STATUS, UNSPECIFIED (2) UTI (urinary tract infection) Code(s): N39.0 - URINARY TRACT INFECTION, SITE NOT SPECIFIED Qualifiers: (3) Atrial fibrillation Code(s): I48.91 - UNSPECIFIED ATRIAL FIBRILLATION Qualifiers: Atrial fibrillation type: chronic (4) HLD (hyperlipidemia) Code(s): E78.5 - HYPERLIPIDEMIA, UNSPECIFIED (5) HTN (hypertension) Code(s): I10 - ESSENTIAL (PRIMARY) HYPERTENSION (6) Hypothyroid Code(s): E03.9 - HYPOTHYROIDISM, UNSPECIFIED Assessment/Plan AMS UTI AFIB s/p CVA HTN continue to monitor rest as per the team physio
--- NOTE | 2019-11-15 16:27 | DS ---
Physical Exam: SUBJECTIVE: Patient seen and examined. No acute events overnight. OBJECTIVE: Vital Signs Period Temp Pulse Resp BP Sys/Yañez Pulse Ox Last 24 Hr 97.5 F-98.3 F 69-88 18-20 106-122/45-69 93-96 PHYSICAL EXAM GENERAL: The patient is A&O x 1.5(knew he was in [place] today), in no acute distress. HEAD: Normal with no signs of trauma. EYES: Sclera anicteric, conjunctiva clear. ENT: Dry mucous membranes. LUNGS: Breath sounds equal, clear to auscultation bilaterally anteriorly, no wheezes, no crackles, no accessory muscle use. HEART: Regular rate and rhythm, S1, S2 without murmur ABDOMEN: Soft, obese, nontender, nondistended but protuberant, dull to percussion with fluid wave, normoactive bowel sounds, no guarding, no rebound EXTREMITIES: 2+ dorsal pedal pulses , warm, well-perfused, toes TTP, erythematous NEUROLOGICAL: Normal speech, gait not observed. PSYCH: Normal mood, normal affect. SKIN: Warm, dry, normal turgor, no rashes or lesions noted LABS Laboratory Results - last 24 hr 11/14/19 11/15/19 11/15/19 14:30 06:21 06:21 WBC 8.3 RBC 4.12 Hgb 13.6 Hct 40.7 MCV 98.6 H MCH 33.0 MCHC 33.5 RDW 12.5 Plt Count 278 MPV 8.8 Sodium 138 Potassium 5.1 Chloride 102 Carbon Dioxide 31 Anion Gap 6 L BUN 22.7 H Creatinine 1.1 Est GFR (CKD-EPI)AfAm 69.10 Est GFR (CKD-EPI)NonAf 59.62 Random Glucose 151 H Calcium 8.9 Magnesium 2.1 COVID-19 ([facility]) Not detected HOSPITAL COURSE: Date of Admission:10/31/19 Date of Discharge: 11/15/19 Pt. is 88 yo male with a PMHx of Afib (on Eliquis), CVA, HTN, HFrEF, and CAD presented to the ED with AMS with no other complaints. ER course was notable for Afib, HR 75, 92% on RA and 98% on 2L. There was suprapubic tenderness, WBC 7.5, MCV 100.3, serum EtOH <3. UA showed protein 3+, LE 2+, WBC 467, bact 66 and epith >36. CT head showed possible small chronic b/l cerebral (left frontal, left occipital, and right parietal) infarcts and a 2 cm full thickness perforation of the cartilaginous nasal septum. MRI brain was unremarkable. Pt was started on Ativan 1 mg. Haldol 5mg, NS, and ceftriaxone 1g. Pt was admitted for acute metabolic encephalopathy possible 2/2 to UTI and started on ceftriaxone. Urine culture was negative, RPR was negative, TSH was wnl, and ammonium of 27. Abdominal U/S was positive for multiple right renal cysts and gall stones without evidence of obstruction or cholecystitis. PRN Haldol and Seroquel was recommended for agitation however daughter refused. Psych was consulted 2/ to reported visual hallucinations. Labs showed macrocytosis with a MCV of 100.3. Home-med Eliquis was cont for chronic Afib and metoprolol and spironolactone for HFrEF and cardiology was consulted. Pt experienced an acute gout flare with elevated uric acid. He was started on colchine and unasyn for possible developing cellulitis. ID was consulted. Medicine adjustment and hospital follow-up is noted below. Pt is medically stabilized and for discharge. Hospital course complicated by Pt.'s daughter refusing Pt. going to subacute or short term rehab. Minutes to complete discharge: 35 Discharge Summary Problems reviewed: Yes Reason For Visit: URINARY TRACT INFECTION,ALTERED MENTAL STATUS Current Active Problems AMS (altered mental status) (Acute) Atrial fibrillation (Acute) Confused (Acute) Cough (Acute) HTN (hypertension) (Acute) Syncope and collapse (Acute) UTI (urinary tract infection) (Acute) Condition: Improved - Instructions Diet, Activity, Other Instructions: You came in for confusion. We imaged you head and did not find anything immediately wrong. We imaged you abdomen and again did not find anything immediately wrong. you should have another ultrasound of your abdomen in 6months - 1 year for multiple R. Kidney cysts. We tested your urine and noted that you have a urinary tract infection. We treated you with a complete course of IV abx. You were noted to have pain in your toes and you tested positive for an immediate gout attack. We started you on treatment for your gout. You were evaluated by cardiology, psychology, infectious disease and speech and swallow. We noticed that your heart rate was going fast so we adjusted your medications We have made some changes to your medications. We increased your Metoprolol Succinate (Toprol XL) to 50mg ONCE a day We have started you on Colchicine 0.6 mg ONCE a day with the last dose on 11/16/19 We have started you Thiamine 100 mg ONCE a day We have started you on Gabapentin 300mg ONCE a day We have started you on Symbicort 80/4.5mg TWO Puffs EVERY 12 hours Please STOP taking Toprol 25mg and continue all your other home medications. You were evaluated in the hospital by Physical therapy and you would benefit from a rehabilitation program to get stronger before going home. Please follow up with your PCP within 1 week Please return to the ED if you are having worsening confusion, fevers, chest pain, chortness of breath or any concerning symptoms. Referrals: Olivia Francis MD [Staff Physician] - Tez Adams MD [Primary Care Provider] - 1 Week Yemi Aleman MD [Staff Physician] - Disposition: HOME - Home Medications Comprehensive Discharge Medication List: Ambulatory Orders Apixaban [Eliquis] 5 mg PO DAILY 03/13/17 Lisinopril [Zestril] 5 mg PO DAILY 03/13/17 Spironolactone [Aldactone -] 25 mg PO DAILY 03/13/17 Furosemide [Lasix] 20 mg PO DAILY 11/01/19 Ipratropium/Albuterol Sulfate [Iprat-Albut 0.5-3(2.5) mg/3 ml] 1 amp IH Q4H PRN 11/01/19 Levothyroxine [Synthroid -] 100 mcg PO DAILY 11/01/19 Pravastatin Sodium 10 mg PO HS 11/01/19 Budesonide/Formeterol Fumarate [SYMBICORT 80/4.5mcg -] 2 puff IH BID #1 inhaler 11/15/19 Colchicine [Colcrys] 0.6 mg PO DAILY #1 tab 11/15/19 Gabapentin [Neurontin -] 300 mg PO DAILY #30 capsule 11/15/19 Metoprolol Succinate [Toprol XL -] 50 mg PO DAILY #60 tab.sr.24h 11/15/19 Thiamine HCl [Vitamin B1 -] 250 mg PO DAILY #30 tablet 11/15/19 This patient is new to me today: No Emergency Visit: Yes ED Registration Date: 10/31/19 Care time: The patient presented to the Emergency Department on the above date and was hospitalized for further evaluation of their emergent condition. Critical Care patient: No - Discharge Referral Referred to [facility] No ATTENDING PHYSICIAN STATEMENT I saw and evaluated the patient. I reviewed the resident's note and discussed the case with the resident. I agree with the resident's findings and plan as documented. SUBJECTIVE: OBJECTIVE: ASSESSMENT AND PLAN:
[2019-11-15] MEDS: ATORVASTATIN CA 10 MG TABLET (FP) PO SCH (21:08)
[2019-11-16] MEDS: INSULIN SLIDING SCALE (NOVOLOG) 1 VIAL SQ SCH ×4 (06:02→21:35)
[2019-11-16] MEDS: LEVOTHYROXINE NA 100 MCG TABLET (FP) PO SCH (06:02)
[2019-11-16] MEDS: SPIRONOLACTONE 25 MG TABLET PO SCH (10:43)
[2019-11-16] MEDS: FUROSEMIDE 20 MG TABLET (FP) PO SCH (10:44)
[2019-11-16] MEDS: FAMOTIDINE 20 MG TABLET PO SCH (10:44)
[2019-11-16] MEDS: SENNOSIDES 8.6MG TABLET (FP) PO SCH ×2 (10:44→21:34)
[2019-11-16] MEDS: APIXABAN 5 MG TABLET PO SCH ×2 (10:44→21:34)
[2019-11-16] MEDS: GABAPENTIN 300 MG CAPSULE PO SCH (10:44)
[2019-11-16] MEDS: metoPROLOL SUCCINATE 25 MG TAB.SR.24H (FP) PO SCH (10:44)
[2019-11-16] MEDS: POLYETHYLENE GLYCOL 3350 119 GM BTL PO SCH (10:44)
[2019-11-16] MEDS: BUDESONIDE/FORMETEROL FUMARATE 80/4.5 mcg INHALER IH SCH ×2 (10:45→21:35)
[2019-11-16] MEDS: THIAMINE HCL 100 MG TABLET (FP) PO SCH (10:45)
[2019-11-16] MEDS ORDERED: PT OWN MED DRAWER 7, Y5N ONE (12:07)
[2019-11-16] MEDS: COLCHICINE 0.6 MG TAB PO SCH (12:08)
--- NOTE | 2019-11-16 12:15 | PN ---
Progress Note (short form) - Note Progress Note: s: no chest pain, dyspnea, palps, dizziness Current Medications Generic Name Dose Route Start Last Admin Trade Name Freq PRN Reason Stop Dose Admin Acetaminophen 650 mg 11/07/19 16:00 11/08/19 09:37 Tylenol - PO 650 mg Q6H PRN Administration PAIN LEVEL 6-10 Albuterol Sulfate 2 puff 11/01/19 17:33 11/01/19 18:22 Ventolin Hfa Inhaler - IH 2 puff Q4H PRN Administration SHORT OF BREATH/WHEEZING Apixaban 5 mg 11/01/19 10:00 11/16/19 10:44 Eliquis - PO 5 mg BID NELSY Administration Atorvastatin Calcium 10 mg 11/01/19 22:00 11/15/19 21:08 Lipitor - PO 10 mg HS NELSY Administration Budesonide/Formoterol Fumarate 2 puff 11/01/19 22:00 11/16/19 10:45 Symbicort 80/4.5mcg - IH 2 puff BID NELSY Administration Colchicine 0.6 mg 11/07/19 14:00 11/16/19 12:08 Colcrys PO 11/16/19 14:00 0.6 mg DAILY NELSY Administration Famotidine 20 mg 11/07/19 13:15 11/16/19 10:44 Pepcid - PO 20 mg DAILY NELSY Administration Furosemide 20 mg 11/02/19 10:00 11/16/19 10:44 Lasix - PO 20 mg DAILY NELSY Administration Gabapentin 300 mg 11/08/19 10:00 11/16/19 10:44 Neurontin - PO 300 mg DAILY NELSY Administration Insulin Aspart 1 vial 10/31/19 22:00 11/16/19 12:01 Novolog Vial Sliding Scale - SQ 2 units ACHS NELSY Administration Protocol Levothyroxine Sodium 100 mcg 11/02/19 07:00 11/16/19 06:02 Synthroid - PO 100 mcg AM NELSY Administration Metoprolol Succinate 50 mg 11/02/19 10:03 11/16/19 10:44 Toprol Xl - PO 50 mg DAILY NELSY Administration Polyethylene Glycol 17 gm 11/11/19 10:00 11/16/19 10:44 Miralax (For Daily Use) - PO 17 gm DAILY NELSY Administration Senna 1 tab 11/11/19 10:00 11/16/19 10:44 Senna - PO 1 tab BID NELSY Administration Spironolactone 25 mg 11/01/19 10:00 11/16/19 10:43 Aldactone - PO 25 mg DAILY NELSY Administration Thiamine HCl 250 mg 11/05/19 12:24 11/16/19 10:45 Vitamin B1 - PO 250 mg DAILY NELSY Administration Vital Signs Period Temp Pulse Resp BP Sys/Yañez Pulse Ox Last 24 Hr 97.8 F-98.8 F 64-82 16-20 97-125/45-77 92-97 Constitutional: Yes: No Distress, Calm Cardiovascular: Yes: Pulse Irregular Respiratory: Yes: Rhonchi Gastrointestinal: Yes: Soft (nt) Edema: No Neurological: Yes: Alert no jaundice diaphoresis not agitated Assessment/Plan a/p: 88 yo with h/o 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, non-obstructive cad, mod MR, afib with h/o cva (on eliquis), htn, hl, s/p remote LE bypass in setting of LE trauma, hypothyroid, BPH, prior heavy alcohol use, folate deficiency anemia, h/o throat CA s/p XRT, here with ams and UTI non-obstructive cad: -no signs acs - ASA stopped as he is on eliquis and risk of bleeding in this age group is elevated -cont statin, bb 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
--- NOTE | 2019-11-16 12:21 | PN ---
Teaching Attending Note Name of Resident: Santhosh Cason ATTENDING PHYSICIAN STATEMENT I saw and evaluated the patient. I reviewed the resident's note and discussed the case with the resident. I agree with the resident's findings and plan as documented. SUBJECTIVE: Seen and examined at bedside. Condition unchanged. Medically cleared for dis charge to STR pending placement. OBJECTIVE Last Vital Signs Temp Pulse Resp BP Pulse Ox 98.2 F 88 18 122/61 93 L 11/15/19 05:55 11/15/19 05:55 11/15/19 05:55 11/15/19 05:55 11/14/19 22:00 PE: Per resident note Labs/Imaging: reviewed ASSESSMENT/PLAN 80-year-old female with past medical history of A. fib on Eliquis, CVA, hypertension, hyperlipidemia, hypothyroidism, heart failure with reduced ejection fraction presents with AMS. Found to have elevated white count and dehydration. #Acute metabolic encephalopathy Differential includes worsening vascular dementia from stroke, dehydration due to poor oral intake, and possible infection MRI brain no acute infarct UTI contaminated White count improving with antibiotics: Status post 7 days ceftriaxone Psych consult appreciated #hypoxia: resolved #Delirium:improving #Acute gout flare:resolved -completed course of colchicine -outpt uric acid in 2-3 weeks to assess for need of urate lowering therapy #Positive urinalysis Urinalysis was contaminated Status post 7 days ceftriaxone #History of CVA Continue pravastatin Aspirin discontinued as patient is on Eliquis and is high bleeding risk due to age #Chronic A. fib on Eliquis Continue home medications Cardiology on board #Heart failure with reduced ejection fraction: At baseline Continue home occasions Dispo: Medically cleared for discharge to STR pending placement.
--- NOTE | 2019-11-16 13:10 | PN ---
Progress Note, Physician History of Present Illness: stable no new issues - Current Medication List Current Medications: Active Medications Acetaminophen (Tylenol -) 650 mg PO Q6H PRN PRN Reason: PAIN LEVEL 6-10 Last Admin: 11/08/19 09:37 Dose: 650 mg Documented by: Albuterol Sulfate (Ventolin Hfa Inhaler -) 2 puff IH Q4H PRN PRN Reason: SHORT OF BREATH/WHEEZING Last Admin: 11/01/19 18:22 Dose: 2 puff Documented by: Apixaban (Eliquis -) 5 mg PO BID [facility] Last Admin: 11/16/19 10:44 Dose: 5 mg Documented by: Atorvastatin Calcium (Lipitor -) 10 mg PO HS [facility] Last Admin: 11/15/19 21:08 Dose: 10 mg Documented by: Budesonide/Formoterol Fumarate (Symbicort 80/4.5mcg -) 2 puff IH BID [facility] Last Admin: 11/16/19 10:45 Dose: 2 puff Documented by: Colchicine (Colcrys) 0.6 mg PO DAILY [facility] Stop: 11/16/19 14:00 Last Admin: 11/16/19 12:08 Dose: 0.6 mg Documented by: Famotidine (Pepcid -) 20 mg PO DAILY [facility] Last Admin: 11/16/19 10:44 Dose: 20 mg Documented by: Furosemide (Lasix -) 20 mg PO DAILY [facility] Last Admin: 11/16/19 10:44 Dose: 20 mg Documented by: Gabapentin (Neurontin -) 300 mg PO DAILY [facility] Last Admin: 11/16/19 10:44 Dose: 300 mg Documented by: Insulin Aspart (Novolog Vial Sliding Scale -) 1 vial SQ ACHS [facility]; Protocol Last Admin: 11/16/19 12:01 Dose: 2 units Documented by: Levothyroxine Sodium (Synthroid -) 100 mcg PO AM [facility] Last Admin: 11/16/19 06:02 Dose: 100 mcg Documented by: Metoprolol Succinate (Toprol Xl -) 50 mg PO DAILY [facility] Last Admin: 11/16/19 10:44 Dose: 50 mg Documented by: Polyethylene Glycol (Miralax (For Daily Use) -) 17 gm PO DAILY [facility] Last Admin: 11/16/19 10:44 Dose: 17 gm Documented by: Senna (Senna -) 1 tab PO BID [facility] Last Admin: 11/16/19 10:44 Dose: 1 tab Documented by: Spironolactone (Aldactone -) 25 mg PO DAILY [facility] Last Admin: 11/16/19 10:43 Dose: 25 mg Documented by: Thiamine HCl (Vitamin B1 -) 250 mg PO DAILY [facility] Last Admin: 11/16/19 10:45 Dose: 250 mg Documented by: - Objective Vital Signs: Vital Signs Temperature 97.8 F 11/16/19 08:53 Pulse Rate 82 11/16/19 08:53 Respiratory Rate 16 11/16/19 08:53 Blood Pressure 125/65 11/16/19 08:53 O2 Sat by Pulse Oximetry (%) 93 L 11/16/19 09:00 Constitutional: Yes: No Distress, Calm Cardiovascular: Yes: Pulse Irregular, S1, S2 Respiratory: Yes: Regular, CTA Bilaterally Gastrointestinal: Yes: Normal Bowel Sounds, Soft Musculoskeletal: Yes: WNL Extremities: Yes: WNL Neurological: Yes: Alert Psychiatric: Yes: Other Labs: CBC, BMP 11/15/19 06:21 11/15/19 06:21 INR, PTT INR 1.13 (0.83-1.09) H 10/31/19 18:00 Assessment/Plan Problem List - Problems (1) AMS (altered mental status) Code(s): R41.82 - ALTERED MENTAL STATUS, UNSPECIFIED (2) UTI (urinary tract infection) Code(s): N39.0 - URINARY TRACT INFECTION, SITE NOT SPECIFIED Qualifiers: (3) Atrial fibrillation Code(s): I48.91 - UNSPECIFIED ATRIAL FIBRILLATION Qualifiers: Atrial fibrillation type: chronic (4) HLD (hyperlipidemia) Code(s): E78.5 - HYPERLIPIDEMIA, UNSPECIFIED (5) HTN (hypertension) Code(s): I10 - ESSENTIAL (PRIMARY) HYPERTENSION (6) Hypothyroid Code(s): E03.9 - HYPOTHYROIDISM, UNSPECIFIED Assessment/Plan AMS UTI AFIB s/p CVA HTN continue to monitor rest as per the team physio
--- NOTE | 2019-11-16 15:59 | PN ---
Physical Exam: SUBJECTIVE: Patient seen and examined at bedside. Does not endorse acute complaints. OBJECTIVE: Vital Signs Period Temp Pulse Resp BP Sys/Yañez Pulse Ox Last 24 Hr 97.8 F-98.8 F 64-99 16-20 97-134/51-77 92-97 GENERAL: The patient is awake, alert, and oriented to place, no apparent distress. HEAD: Normal with no signs of trauma. EYES: PERRL, extraocular movements intact, sclera anicteric, conjunctiva clear. ENT: Ears normal, nares patent, oropharynx clear without exudates, moist mucous membranes. NECK: Trachea midline, full range of motion, supple. LUNGS: Breath sounds equal, clear to auscultation bilaterally, no wheezes, no crackles, no accessory muscle use. HEART: Regular rate and rhythm, S1, S2 without murmur, rub or gallop. ABDOMEN: Protuberant abdomen. Soft, nontender, nondistended, normoactive bowel sounds, no guarding, no rebound, no hepatosplenomegaly, no masses. EXTREMITIES: 2+ pulses, warm, well-perfused, no edema. NEUROLOGICAL: Cranial nerves II through XII grossly intact. Normal speech, gait not observed. PSYCH: Normal mood, normal affect. SKIN: Warm, dry, normal turgor, no rashes or lesions noted Laboratory Results - last 24 hr 11/15/19 20:27 POC Glucometer 194 Active Medications Generic Name Dose Route Start Last Admin Trade Name Freq PRN Reason Stop Dose Admin Acetaminophen 650 mg 11/07/19 16:00 11/08/19 09:37 Tylenol - PO 650 mg Q6H PRN Administration PAIN LEVEL 6-10 Albuterol Sulfate 2 puff 11/01/19 17:33 11/01/19 18:22 Ventolin Hfa Inhaler - IH 2 puff Q4H PRN Administration SHORT OF BREATH/WHEEZING Apixaban 5 mg 11/01/19 10:00 11/16/19 10:44 Eliquis - PO 5 mg BID NELSY Administration Atorvastatin Calcium 10 mg 11/01/19 22:00 11/15/19 21:08 Lipitor - PO 10 mg HS NELSY Administration Budesonide/Formoterol Fumarate 2 puff 11/01/19 22:00 11/16/19 10:45 Symbicort 80/4.5mcg - IH 2 puff BID NELSY Administration Famotidine 20 mg 11/07/19 13:15 11/16/19 10:44 Pepcid - PO 20 mg DAILY NELSY Administration Furosemide 20 mg 11/02/19 10:00 11/16/19 10:44 Lasix - PO 20 mg DAILY NELSY Administration Gabapentin 300 mg 11/08/19 10:00 11/16/19 10:44 Neurontin - PO 300 mg DAILY NELSY Administration Insulin Aspart 1 vial 10/31/19 22:00 11/16/19 12:01 Novolog Vial Sliding Scale - SQ 2 units ACHS NELSY Administration Protocol Levothyroxine Sodium 100 mcg 11/02/19 07:00 11/16/19 06:02 Synthroid - PO 100 mcg AM NELSY Administration Metoprolol Succinate 50 mg 11/02/19 10:03 11/16/19 10:44 Toprol Xl - PO 50 mg DAILY NELSY Administration Polyethylene Glycol 17 gm 11/11/19 10:00 11/16/19 10:44 Miralax (For Daily Use) - PO 17 gm DAILY NELSY Administration Senna 1 tab 11/11/19 10:00 11/16/19 10:44 Senna - PO 1 tab BID NELSY Administration Spironolactone 25 mg 11/01/19 10:00 11/16/19 10:43 Aldactone - PO 25 mg DAILY NELSY Administration Thiamine HCl 250 mg 11/05/19 12:24 11/16/19 10:45 Vitamin B1 - PO 250 mg DAILY NELSY Administration ASSESSMENT/PLAN: Patient is an 8 year old male with history of Afib on Eliquis, CVA, hypertens ion, hyperlipidema, hypothyroidism, coronary artery disease, HFrEf presents with altered mental status. Acute Metabolic encephalopathy secondary to hospital delirium vs. UTI -CT head reveals possible small chronic b/l cerebra infarcts. -MRI brain does not reveal acute infarct -Abdominal ultrasound positive for multiple right renal cysts and gall stones without evidence of obstruction or cholecystitis. -UCX Negative to date -RPR Negative -Ammonia within normal limits -TSH within normal limits. -Ceftriaxone course completed -Psych consult appreciated -Initiated on Thiamine 100mg daily Acute Gout Flare -Elevated Uric acid -Completed Colchicine course. History of CVA -Continue Aspirin 81mg, Pravastatin 10mg. History of Afib -Metoprolol dose increased to 50mg -Continue home Eliquis -Cardiology consult appreciated HFrEF - Currently not in exacerbation -Echo(11/18/16): mod-severed reduced LV systolic function LVEF 45.6%, mod global hypokinesis of the LV. RA is mod-severely dilated. Moderate TR. RVSP 46mmHg -Continue home Metoprolol, Spironolactone and Lasix FEN - No IV fluids indicated, encourage PO intake - Folow BMP - Dysphagia chopped diet as Pt. does not have dentures with him. Prophylaxis Eliquis 5 mg BID Disposition Patient is pending acceptance for subacute rehab, can monitor in medical/ surgical floor. Visit type - Emergency Visit Emergency Visit: Yes ED Registration Date: 10/31/19 Care time: The patient presented to the Emergency Department on the above date and was hospitalized for further evaluation of their emergent condition. - New Patient This patient is new to me today: Yes Date on this admission: 11/16/19 - Critical Care Critical Care patient: No - Discharge Referral Referred to [facility] Med P.C[facility] No - Medication Review Med list reviewed for High Risk Meds patients 65 and older: Yes ATTENDING PHYSICIAN STATEMENT I saw and evaluated the patient. I reviewed the resident's note and discussed the case with the resident. I agree with the resident's findings and plan as documented. SUBJECTIVE: OBJECTIVE: ASSESSMENT AND PLAN:
[2019-11-16] MEDS: ATORVASTATIN CA 10 MG TABLET (FP) PO SCH (21:34)
[2019-11-17] MEDS: INSULIN SLIDING SCALE (NOVOLOG) 1 VIAL SQ SCH ×4 (06:22→21:41)
[2019-11-17] MEDS: LEVOTHYROXINE NA 100 MCG TABLET (FP) PO SCH (06:22)
--- NOTE | 2019-11-17 09:32 | PN ---
Progress Note, Physician - Current Medication List Current Medications: Active Medications Acetaminophen (Tylenol -) 650 mg PO Q6H PRN PRN Reason: PAIN LEVEL 6-10 Last Admin: 11/08/19 09:37 Dose: 650 mg Documented by: Albuterol Sulfate (Ventolin Hfa Inhaler -) 2 puff IH Q4H PRN PRN Reason: SHORT OF BREATH/WHEEZING Last Admin: 11/01/19 18:22 Dose: 2 puff Documented by: Apixaban (Eliquis -) 5 mg PO BID [facility] Last Admin: 11/16/19 21:34 Dose: 5 mg Documented by: Atorvastatin Calcium (Lipitor -) 10 mg PO HS [facility] Last Admin: 11/16/19 21:34 Dose: 10 mg Documented by: Budesonide/Formoterol Fumarate (Symbicort 80/4.5mcg -) 2 puff IH BID [facility] Last Admin: 11/16/19 21:35 Dose: 2 puff Documented by: Famotidine (Pepcid -) 20 mg PO DAILY [facility] Last Admin: 11/16/19 10:44 Dose: 20 mg Documented by: Furosemide (Lasix -) 20 mg PO DAILY [facility] Last Admin: 11/16/19 10:44 Dose: 20 mg Documented by: Gabapentin (Neurontin -) 300 mg PO DAILY [facility] Last Admin: 11/16/19 10:44 Dose: 300 mg Documented by: Insulin Aspart (Novolog Vial Sliding Scale -) [address] [facility]; Protocol Last Admin: 11/17/19 06:22 Dose: 2 units Documented by: Levothyroxine Sodium (Synthroid -) 100 mcg PO AM [facility] Last Admin: 11/17/19 06:22 Dose: 100 mcg Documented by: Metoprolol Succinate (Toprol Xl -) 50 mg PO DAILY [facility] Last Admin: 11/16/19 10:44 Dose: 50 mg Documented by: Polyethylene Glycol (Miralax (For Daily Use) -) 17 gm PO DAILY [facility] Last Admin: 11/16/19 10:44 Dose: 17 gm Documented by: Senna (Senna -) 1 tab PO BID [facility] Last Admin: 11/16/19 21:34 Dose: 1 tab Documented by: Spironolactone (Aldactone -) 25 mg PO DAILY [facility] Last Admin: 11/16/19 10:43 Dose: 25 mg Documented by: Thiamine HCl (Vitamin B1 -) 250 mg PO DAILY [facility] Last Admin: 11/16/19 10:45 Dose: 250 mg Documented by: - Objective Vital Signs: Vital Signs Temperature 98.3 F 11/17/19 06:00 Pulse Rate 74 11/17/19 06:00 Respiratory Rate 18 11/17/19 06:00 Blood Pressure 135/70 11/17/19 06:00 O2 Sat by Pulse Oximetry (%) 96 11/17/19 06:00 Labs: CBC, BMP 11/15/19 06:21 11/15/19 06:21 INR, PTT INR 1.13 (0.83-1.09) H 10/31/19 18:00
[2019-11-17] MEDS ORDERED: PT OWN MED DRAWER 7, Y5N ONE (10:27)
[2019-11-17] MEDS: FUROSEMIDE 20 MG TABLET (FP) PO SCH (10:34)
[2019-11-17] MEDS: SPIRONOLACTONE 25 MG TABLET PO SCH (10:34)
[2019-11-17] MEDS: SENNOSIDES 8.6MG TABLET (FP) PO SCH ×2 (10:34→21:41)
[2019-11-17] MEDS: metoPROLOL SUCCINATE 25 MG TAB.SR.24H (FP) PO SCH (10:35)
[2019-11-17] MEDS: APIXABAN 5 MG TABLET PO SCH ×2 (10:35→21:41)
[2019-11-17] MEDS: BUDESONIDE/FORMETEROL FUMARATE 80/4.5 mcg INHALER IH SCH ×2 (10:35→21:41)
[2019-11-17] MEDS: POLYETHYLENE GLYCOL 3350 119 GM BTL PO SCH (10:35)
[2019-11-17] MEDS: FAMOTIDINE 20 MG TABLET PO SCH (10:35)
[2019-11-17] MEDS: THIAMINE HCL 100 MG TABLET (FP) PO SCH (10:36)
[2019-11-17] MEDS: GABAPENTIN 300 MG CAPSULE PO SCH (10:36)
--- NOTE | 2019-11-17 11:49 | PN ---
Progress Note (short form) - Note Progress Note: s: no distress no CP/SOB/palps History of Present Illness: Current Medications Generic Name Dose Route Start Last Admin Trade Name Freq PRN Reason Stop Dose Admin Acetaminophen 650 mg 11/07/19 16:00 11/08/19 09:37 Tylenol - PO 650 mg Q6H PRN Administration PAIN LEVEL 6-10 Albuterol Sulfate 2 puff 11/01/19 17:33 11/01/19 18:22 Ventolin Hfa Inhaler - IH 2 puff Q4H PRN Administration SHORT OF BREATH/WHEEZING Apixaban 5 mg 11/01/19 10:00 11/17/19 10:35 Eliquis - PO 5 mg BID NELSY Administration Atorvastatin Calcium 10 mg 11/01/19 22:00 11/16/19 21:34 Lipitor - PO 10 mg HS NELSY Administration Budesonide/Formoterol Fumarate 2 puff 11/01/19 22:00 11/17/19 10:35 Symbicort 80/4.5mcg - IH 2 puff BID NELSY Administration Famotidine 20 mg 11/07/19 13:15 11/17/19 10:35 Pepcid - PO 20 mg DAILY NELSY Administration Furosemide 20 mg 11/02/19 10:00 11/17/19 10:34 Lasix - PO 20 mg DAILY NELSY Administration Gabapentin 300 mg 11/08/19 10:00 11/17/19 10:36 Neurontin - PO 300 mg DAILY NELSY Administration Insulin Aspart 1 vial 10/31/19 22:00 11/17/19 06:22 Novolog Vial Sliding Scale - SQ 2 units ACHS NELSY Administration Protocol Levothyroxine Sodium 100 mcg 11/02/19 07:00 11/17/19 06:22 Synthroid - PO 100 mcg AM NELSY Administration Metoprolol Succinate 50 mg 11/02/19 10:03 11/17/19 10:35 Toprol Xl - PO 50 mg DAILY NELSY Administration Polyethylene Glycol 17 gm 11/11/19 10:00 11/17/19 10:35 Miralax (For Daily Use) - PO 17 gm DAILY NELSY Administration Senna 1 tab 11/11/19 10:00 11/17/19 10:34 Senna - PO 1 tab BID NELSY Administration Spironolactone 25 mg 11/01/19 10:00 09/10/20 10:34 Aldactone - PO 25 mg DAILY NELSY Administration Thiamine HCl 250 mg 11/05/19 12:24 11/17/19 10:36 Vitamin B1 - PO 250 mg DAILY NELSY Administration Discontinued Medications Generic Name Dose Route Start Last Admin Trade Name Freq PRN Reason Stop Dose Admin Acetaminophen 1,000 mg 11/06/19 21:08 11/06/19 22:40 Ofirmev Injection - IVPB 11/06/19 21:09 1,000 mg ONCE ONE Administration Acetaminophen 1,000 mg 11/07/19 15:56 11/07/19 16:22 Ofirmev Injection - IVPB 11/07/19 15:57 1,000 mg ONCE ONE Administration Albuterol/Ipratropium 1 amp 10/31/19 16:49 10/31/19 20:14 Duoneb - NEB 10/31/19 16:50 Not Given ONCE ONE Aspirin 81 mg 11/01/19 10:00 11/05/19 09:13 Asa - PO 81 mg DAILY NELSY Administration Atorvastatin Calcium 40 mg 11/01/19 22:00 Lipitor - PO HS NELSY Colchicine 0.6 mg 11/07/19 14:00 11/16/19 12:08 Colcrys PO 11/16/19 14:00 0.6 mg DAILY NELSY Administration Diphenhydramine HCl 25 mg 11/02/19 19:26 11/02/19 21:27 Benadryl - PO 25 mg ONCE PRN Administration AGITATION Docusate Sodium 100 mg 11/11/19 08:00 11/11/19 08:54 Colace Liquid - PO 11/11/19 08:01 100 mg ONCE ONE Administration Enoxaparin Sodium 40 mg 11/01/19 10:00 Lovenox - SQ DAILY [facility] Gabapentin 100 mg 11/05/19 13:30 11/07/19 10:43 Neurontin - PO 100 mg DAILY [facility] Administration Haloperidol 5 mg 10/31/19 17:20 10/31/19 17:35 Haldol Injection (Fast Acting) - IM 10/31/19 17:21 5 mg ONCE ONE Administration Haloperidol 2.5 mg 11/02/19 15:27 Haldol Injection (Fast Acting) - IM HS PRN AGITATION Ceftriaxone Sodium 1,000 mg/ 50 mls @ 100 mls/hr 10/31/19 18:59 10/31/19 20:14 Dextrose IVPB 10/31/19 19:28 100 mls/hr ONCE ONE Administration Sodium Chloride 250 mls @ 250 mls/hr 10/31/19 19:15 10/31/19 19:32 Normal Saline - IV 10/31/19 20:14 250 mls/hr ASDIR STA Administration Ceftriaxone Sodium 2 gm/ 100 mls @ 200 mls/hr 11/01/19 10:00 Dextrose IVPB DAILY NELSY Sodium Chloride 1,000 mls @ 83 mls/hr 11/01/19 06:00 11/01/19 06:28 Normal Saline - IV 83 mls/hr ASDIR NELSY Administration Ceftriaxone Sodium 1 gm/ 50 mls @ 200 mls/hr 11/01/19 10:00 Dextrose IVPB DAILY NELSY Ceftriaxone Sodium 1 gm/ 50 mls @ 200 mls/hr 11/01/19 10:00 11/06/19 10:20 Dextrose IVPB 200 mls/hr DAILY NELSY Administration Vancomycin HCl 1,000 mg in 250 mls @ 166.667 mls/hr 11/06/19 17:15 11/06/19 17:13 Vancomycin (Pre-Docked) IVPB 11/06/19 18:44 166.667 mls/hr ONCE ONE Administration Protocol Ampicillin Sodium/Sulbactam 100 mls @ 200 mls/hr 11/07/19 16:00 11/08/19 14:35 Sodium 1.5 gm/ Sodium Chloride IVPB 200 mls/hr Q6H-IV NELSY Administration Lorazepam 1 mg 10/31/19 17:20 10/31/19 17:35 Ativan Injection - IM 10/31/19 17:21 1 mg ONCE ONE Administration Metoprolol Succinate 25 mg 11/01/19 10:00 11/02/19 10:19 Toprol Xl - PO Not Given DAILY NELSY Metoprolol Succinate 50 mg 11/02/19 15:26 11/02/19 16:22 Toprol Xl - PO 11/02/19 15:27 50 mg ONCE ONE Administration Metoprolol Tartrate 25 mg 11/01/19 21:03 11/01/19 21:53 Lopressor - PO 11/01/19 21:04 25 mg ONCE ONE Administration Midazolam HCl 3 mg 10/31/19 17:54 10/31/19 18:10 Versed - IVPUSH 10/31/19 17:55 3 mg ONCE ONE Administration Midazolam HCl 4 mg 10/31/19 20:55 10/31/19 21:00 Versed - IVPUSH 10/31/19 20:56 4 mg ONCE ONE Administration Non-Formulary Medication 10 mg 11/01/19 22:00 Pravastatin Sodium [Pravastatin Sodium] PO HS NELSY Thiamine HCl 100 mg 11/02/19 15:45 11/05/19 09:13 Vitamin B1 - PO 100 mg DAILY NELSY Administration Vital Signs Period Temp Pulse Resp BP Sys/Yañez Pulse Ox Last 24 Hr 97.4 F-98.8 F 74-99 16-18 116-146/61-75 95-96 Constitutional: Yes: No Distress, Calm Cardiovascular: Yes: Pulse Irregular Respiratory: Yes: Rhonchi Gastrointestinal: Yes: Soft (nt) Edema: No Neurological: Yes: Alert no jaundice diaphoresis Labs: CBC, BMP 11/15/19 06:21 11/15/19 06:21 - ....Imaging EKG: Image Reviewed Assessment/Plan a/p: 88 yo with h/o 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, non-obstructive cad, 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, afib with h/o cva (on eliquis), htn, hl, s/p remote LE bypass in setting of LE trauma, hypothyroid, BPH, prior heavy alcohol use, folate deficiency anemia, h/o throat CA s/p XRT, here with ams and UTI non-obstructive cad: -no signs acs - ASA stopped as he is on full AC and risk of bleeding in this age group is elevated -cont statin, bb 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
--- NOTE | 2019-11-17 12:20 | PN ---
Teaching Attending Note Name of Resident: Santhosh Cason ATTENDING PHYSICIAN STATEMENT I saw and evaluated the patient. I reviewed the resident's note and discussed the case with the resident. I agree with the resident's findings and plan as documented. SUBJECTIVE: Seen and examined at bedside. Condition unchanged. Medically cleared for dis charge to STR pending placement. OBJECTIVE Last Vital Signs Temp Pulse Resp BP Pulse Ox 97.4 F L 83 18 146/71 95 11/17/19 09:51 11/17/19 09:51 11/17/19 09:51 11/17/19 09:51 11/17/19 09:51 PE: Per resident note Labs/Imaging: reviewed ASSESSMENT/PLAN 80-year-old female with past medical history of A. fib on Eliquis, CVA, hypertension, hyperlipidemia, hypothyroidism, heart failure with reduced ejection fraction presents with AMS. Found to have elevated white count and dehydration. #Acute metabolic encephalopathy: improved Differential includes worsening vascular dementia from stroke, dehydration due to poor oral intake, and possible infection MRI brain no acute infarct UTI contaminated White count improving with antibiotics: Status post 7 days ceftriaxone Psych consult appreciated #hypoxia: resolved #Delirium:improving #Acute gout flare:resolved -completed course of colchicine -outpt uric acid in 2-3 weeks to assess for need of urate lowering therapy #Positive urinalysis Urinalysis was contaminated Status post 7 days ceftriaxone #History of CVA Continue pravastatin Aspirin discontinued as patient is on Eliquis and is high bleeding risk due to age #Chronic A. fib on Eliquis Continue home medications Cardiology on board #Heart failure with reduced ejection fraction: At baseline Continue home occasions Dispo: Medically cleared for discharge to STR pending placement.
--- NOTE | 2019-11-17 14:41 | PN ---
Physical Exam: SUBJECTIVE: Patient seen and examined at bedside. Does not endorse acute complaints. OBJECTIVE: Vital Signs Period Temp Pulse Resp BP Sys/Yañez Pulse Ox Last 24 Hr 97.4 F-98.8 F 73-99 16-18 116-146/66-75 95-96 GENERAL: The patient is awake, alert, and oriented to place, no apparent distress. HEAD: Normal with no signs of trauma. EYES: PERRL, extraocular movements intact, sclera anicteric, conjunctiva clear. ENT: Ears normal, nares patent, oropharynx clear without exudates, moist mucous membranes. NECK: Trachea midline, full range of motion, supple. LUNGS: Breath sounds equal, clear to auscultation bilaterally, no wheezes, no crackles, no accessory muscle use. HEART: Regular rate and rhythm, S1, S2 without murmur, rub or gallop. ABDOMEN: Protuberant abdomen. Soft, nontender, nondistended, normoactive bowel sounds, no guarding, no rebound, no hepatosplenomegaly, no masses. EXTREMITIES: 2+ pulses, warm, well-perfused, no edema. NEUROLOGICAL: Cranial nerves II through XII grossly intact. Normal speech, gait not observed. PSYCH: Normal mood, normal affect. SKIN: Warm, dry, normal turgor, no rashes or lesions noted Laboratory Results - last 24 hr 11/16/19 11/17/19 11/17/19 21:34 06:19 12:04 POC Glucometer 159 174 181 Active Medications Generic Name Dose Route Start Last Admin Trade Name Freq PRN Reason Stop Dose Admin Acetaminophen 650 mg 11/07/19 16:00 11/08/19 09:37 Tylenol - PO 650 mg Q6H PRN Administration PAIN LEVEL 6-10 Albuterol Sulfate 2 puff 11/01/19 17:33 11/01/19 18:22 Ventolin Hfa Inhaler - IH 2 puff Q4H PRN Administration SHORT OF BREATH/WHEEZING Apixaban 5 mg 11/01/19 10:00 11/17/19 10:35 Eliquis - PO 5 mg BID NELSY Administration Atorvastatin Calcium 10 mg 11/01/19 22:00 11/16/19 21:34 Lipitor - PO 10 mg HS NELSY Administration Budesonide/Formoterol Fumarate 2 puff 11/01/19 22:00 11/17/19 10:35 Symbicort 80/4.5mcg - IH 2 puff BID ENLSY Administration Famotidine 20 mg 11/07/19 13:15 11/17/19 10:35 Pepcid - PO 20 mg DAILY NELSY Administration Furosemide 20 mg 11/02/19 10:00 11/17/19 10:34 Lasix - PO 20 mg DAILY NELSY Administration Gabapentin 300 mg 11/08/19 10:00 11/17/19 10:36 Neurontin - PO 300 mg DAILY NELSY Administration Insulin Aspart 1 vial 10/31/19 22:00 11/17/19 12:05 Novolog Vial Sliding Scale - SQ 2 units ACHS NELSY Administration Protocol Levothyroxine Sodium 100 mcg 11/02/19 07:00 11/17/19 06:22 Synthroid - PO 100 mcg AM NELSY Administration Metoprolol Succinate 50 mg 11/02/19 10:03 11/17/19 10:35 Toprol Xl - PO 50 mg DAILY NELSY Administration Polyethylene Glycol 17 gm 11/11/19 10:00 11/17/19 10:35 Miralax (For Daily Use) - PO 17 gm DAILY NELSY Administration Senna 1 tab 11/11/19 10:00 11/17/19 10:34 Senna - PO 1 tab BID NELSY Administration Spironolactone 25 mg 11/01/19 10:00 11/17/19 10:34 Aldactone - PO 25 mg DAILY NELSY Administration Thiamine HCl 250 mg 11/05/19 12:24 11/17/19 10:36 Vitamin B1 - PO 250 mg DAILY NELSY Administration ASSESSMENT/PLAN: Patient is an 8 year old male with history of Afib on Eliquis, CVA, hypertension, hyperlipidema, hypothyroidism, coronary artery disease, HFrEf presents with altered mental status. Acute Metabolic encephalopathy secondary to hospital delirium vs. UTI -CT head reveals possible small chronic b/l cerebra infarcts. -MRI brain does not reveal acute infarct -Abdominal ultrasound positive for multiple right renal cysts and gall stones without evidence of obstruction or cholecystitis. -UCX Negative to date -RPR Negative -Ammonia within normal limits -TSH within normal limits. -Ceftriaxone course completed -Psych consult appreciated -Initiated on Thiamine 100mg daily Acute Gout Flare -Elevated Uric acid -Completed Colchicine course. History of CVA -Continue Aspirin 81mg, Pravastatin 10mg. History of Afib -Metoprolol dose increased to 50mg -Continue home Eliquis -Cardiology consult appreciated HFrEF - Currently not in exacerbation -Echo(11/18/16): mod-severed reduced LV systolic function LVEF 45.6%, mod global hypokinesis of the LV. RA is mod-severely dilated. Moderate TR. RVSP 46mmHg -Continue home Metoprolol, Spironolactone and Lasix FEN - No IV fluids indicated, encourage PO intake - Folow BMP - Dysphagia chopped diet as Pt. does not have dentures with him. Prophylaxis Eliquis 5 mg BID Disposition Patient is pending acceptance for subacute rehab, can monitor in medical/ surgical floor. Visit type - Emergency Visit Emergency Visit: Yes ED Registration Date: 10/31/19 Care time: The patient presented to the Emergency Department on the above date and was hospitalized for further evaluation of their emergent condition. - New Patient This patient is new to me today: No - Critical Care Critical Care patient: No - Discharge Referral Referred to [facility] Med P.C[facility] No - Medication Review Med list reviewed for High Risk Meds patients 65 and older: Yes ATTENDING PHYSICIAN STATEMENT I saw and evaluated the patient. I reviewed the resident's note and discussed the case with the resident. I agree with the resident's findings and plan as documented. SUBJECTIVE: OBJECTIVE: ASSESSMENT AND PLAN:
[2019-11-17] MEDS: ATORVASTATIN CA 10 MG TABLET (FP) PO SCH (21:41)
--- NOTE | 2019-11-18 05:29 | PN ---
Progress Note, Physician Chief Complaint: comfortable No CP, SOB, palps History of Present Illness: AF, NICM Dementia Non smoker - Current Medication List Current Medications: Active Medications Acetaminophen (Tylenol -) 650 mg PO Q6H PRN PRN Reason: PAIN LEVEL 6-10 Last Admin: 11/08/19 09:37 Dose: 650 mg Documented by: Albuterol Sulfate (Ventolin Hfa Inhaler -) 2 puff IH Q4H PRN PRN Reason: SHORT OF BREATH/WHEEZING Last Admin: 11/01/19 18:22 Dose: 2 puff Documented by: Apixaban (Eliquis -) 5 mg PO BID [facility] Last Admin: 11/17/19 21:41 Dose: 5 mg Documented by: Atorvastatin Calcium (Lipitor -) 10 mg PO HS [facility] Last Admin: 11/17/19 21:41 Dose: 10 mg Documented by: Budesonide/Formoterol Fumarate (Symbicort 80/4.5mcg -) 2 puff IH BID [facility] Last Admin: 11/17/19 21:41 Dose: 2 puff Documented by: Famotidine (Pepcid -) 20 mg PO DAILY [facility] Last Admin: 11/17/19 10:35 Dose: 20 mg Documented by: Furosemide (Lasix -) 20 mg PO DAILY [facility] Last Admin: 11/17/19 10:34 Dose: 20 mg Documented by: Gabapentin (Neurontin -) 300 mg PO DAILY [facility] Last Admin: 11/17/19 10:36 Dose: 300 mg Documented by: Insulin Aspart (Novolog Vial Sliding Scale -) 1 vial SQ ACHS [facility]; Protocol Last Admin: 11/17/19 21:41 Dose: 2 units Documented by: Levothyroxine Sodium (Synthroid -) 100 mcg PO AM [facility] Last Admin: 11/17/19 06:22 Dose: 100 mcg Documented by: Metoprolol Succinate (Toprol Xl -) 50 mg PO DAILY [facility] Last Admin: 11/17/19 10:35 Dose: 50 mg Documented by: Polyethylene Glycol (Miralax (For Daily Use) -) 17 gm PO DAILY [facility] Last Admin: 11/17/19 10:35 Dose: 17 gm Documented by: Senna (Senna -) 1 tab PO BID [facility] Last Admin: 11/17/19 21:41 Dose: 1 tab Documented by: Spironolactone (Aldactone -) 25 mg PO DAILY [facility] Last Admin: 11/17/19 10:34 Dose: 25 mg Documented by: Thiamine HCl (Vitamin B1 -) 250 mg PO DAILY [facility] Last Admin: 11/17/19 10:36 Dose: 250 mg Documented by: - Objective Vital Signs: Vital Signs Temperature 98.1 F 11/17/19 22:00 Pulse Rate 84 11/17/19 22:00 Respiratory Rate 18 11/17/19 22:00 Blood Pressure 119/54 L 11/17/19 22:00 O2 Sat by Pulse Oximetry (%) 96 11/17/19 22:00 Constitutional: Yes: No Distress Cardiovascular: Yes: Pulse Irregular Respiratory: Yes: CTA Bilaterally Gastrointestinal: Yes: Soft (nt) Edema: No Labs: CBC, BMP 11/15/19 06:21 11/15/19 06:21 INR, PTT INR 1.13 (0.83-1.09) H 10/31/19 18:00 Assessment/Plan Assessment/Plan a/p: 88 yo with h/o 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, non-obstructive cad, mod MR, afib with h/o cva (on eliquis), htn, hl, s/p remote LE bypass in setting of LE trauma, hypothyroid, BPH, prior heavy alcohol use, folate deficiency anemia, h/o throat CA s/p XRT, here with ams and UTI non-obstructive cad: -no signs acs - ASA stopped as he is on full AC and risk of bleeding in this age group is elevated -cont statin, bb 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
[2019-11-18] MEDS: INSULIN SLIDING SCALE (NOVOLOG) 1 VIAL SQ SCH ×2 (06:36→11:54)
[2019-11-18] MEDS: LEVOTHYROXINE NA 100 MCG TABLET (FP) PO SCH (06:37)
--- NOTE | 2019-11-18 09:59 | PN ---
Progress Note, ATTIC BLOWER - Note Progress Note: Selected Entries 11/17/19 11/17/19 11/17/19 06:00 09:51 09:58 Breakfast 100% Diet Tolerated Well Lunch Supper Temperature 98.3 F 97.4 F L Pulse Rate 74 83 Blood Pressure 135/70 146/71 11/17/19 11/17/19 11/17/19 14:00 14:38 18:00 Breakfast Diet Tolerated Lunch 0 Supper Temperature 97.5 F L 98.2 F Pulse Rate 73 85 Blood Pressure 125/74 122/58 L 11/17/19 11/17/19 11/18/19 21:16 22:00 06:00 Breakfast Diet Tolerated Well Lunch Supper 100% Temperature 98.1 F 97.7 F Pulse Rate 84 70 Blood Pressure 119/54 L 128/68 Laboratory Tests 11/15/19 06:21 WBC 8.3 Laboratory Tests 11/04/19 11/10/19 11/14/19 05:30 14:30 14:30 COVID-19 ([facility]) Not detected Not detected Not detected 11/17/19 12:20 COVID-19 ([facility]) Pending Dys puree/nectar with aspiration precautions- Magic cup 2 mary HN or Suplena Aspiration precautions For d/c today Consider MBS as out pt to upgrade diet, if appropriate
[2019-11-18] MEDS: SENNOSIDES 8.6MG TABLET (FP) PO SCH (10:37)
[2019-11-18] MEDS: APIXABAN 5 MG TABLET PO SCH (10:37)
[2019-11-18] MEDS: FUROSEMIDE 20 MG TABLET (FP) PO SCH (10:37)
[2019-11-18] MEDS: metoPROLOL SUCCINATE 25 MG TAB.SR.24H (FP) PO SCH (10:37)
[2019-11-18] MEDS: FAMOTIDINE 20 MG TABLET PO SCH (10:38)
[2019-11-18] MEDS: SPIRONOLACTONE 25 MG TABLET PO SCH (10:38)
[2019-11-18] MEDS: GABAPENTIN 300 MG CAPSULE PO SCH (10:38)
[2019-11-18] MEDS: POLYETHYLENE GLYCOL 3350 119 GM BTL PO SCH (10:38)
[2019-11-18] MEDS: THIAMINE HCL 100 MG TABLET (FP) PO SCH (10:39)
[2019-11-18] MEDS: BUDESONIDE/FORMETEROL FUMARATE 80/4.5 mcg INHALER IH SCH (10:39)
--- NOTE | 2019-11-18 12:34 | PN ---
Teaching Attending Note Name of Resident: Santhosh Cason ATTENDING PHYSICIAN STATEMENT I saw and evaluated the patient. I reviewed the resident's note and discussed the case with the resident. I agree with the resident's findings and plan as documented. SUBJECTIVE: Seen and examined at bedside. Condition unchanged. Medically cleared for dis charge to STR pending placement. OBJECTIVE Last Vital Signs Temp Pulse Resp BP Pulse Ox 97.9 F 79 18 122/54 L 95 11/18/19 09:45 11/18/19 09:45 11/18/19 09:45 11/18/19 09:45 11/18/19 09:45 PE: Per resident note Labs/Imaging: reviewed ASSESSMENT/PLAN 80-year-old female with past medical history of A. fib on Eliquis, CVA, hypertension, hyperlipidemia, hypothyroidism, heart failure with reduced ejection fraction presents with AMS. Found to have elevated white count and dehydration. #Acute metabolic encephalopathy: improved Differential includes worsening vascular dementia from stroke, dehydration due to poor oral intake, and possible infection MRI brain no acute infarct UTI contaminated White count improving with antibiotics: Status post 7 days ceftriaxone Psych consult appreciated #hypoxia: resolved #Delirium:improving #Acute gout flare:resolved -completed course of colchicine -outpt uric acid in 2-3 weeks to assess for need of urate lowering therapy #Positive urinalysis Urinalysis was contaminated Status post 7 days ceftriaxone #History of CVA Continue pravastatin Aspirin discontinued as patient is on Eliquis and is high bleeding risk due to age #Chronic A. fib on Eliquis Continue home medications Cardiology on board #Heart failure with reduced ejection fraction: At baseline Continue home occasions Dispo: Medically cleared for discharge to STR pending placement.
[2019-11-18 13:32] VITALS: BP 153/69; PULSE 83; TEMP 97.6
--- NOTE | 2019-11-18 13:41 | DS ---
Physical Exam: SUBJECTIVE: Patient seen and examined OBJECTIVE: Vital Signs Period Temp Pulse Resp BP Sys/Yañez Pulse Ox Last 24 Hr 97.5 F-98.2 F 70-85 18-18 119-153/54-74 95-96 PHYSICAL EXAM GENERAL: The patient is awake, alert, and fully oriented, in no acute distress. HEAD: Normal with no signs of trauma. EYES: PERRL, extraocular movements intact, sclera anicteric, conjunctiva clear. ENT: Ears normal, nares patent, oropharynx clear without exudates, moist mucous membranes. NECK: Trachea midline, full range of motion, supple. LUNGS: Breath sounds equal, clear to auscultation bilaterally, no wheezes, no crackles, no accessory muscle use. HEART: Regular rate and rhythm, S1, S2 without murmur, rub or gallop. ABDOMEN: Soft, nontender, nondistended, normoactive bowel sounds, no guarding, no rebound, no hepatosplenomegaly, no masses. EXTREMITIES: 2+ pulses, warm, well-perfused, no edema. NEUROLOGICAL: Cranial nerves II through XII grossly intact. Normal speech, gait not observed. PSYCH: Normal mood, normal affect. SKIN: Warm, dry, normal turgor, no rashes or lesions noted. LABS Laboratory Results - last 24 hr 11/17/19 12:20 COVID-19 ([facility]) Not detected HOSPITAL COURSE: Date of Admission:10/31/19 Date of Discharge: 11/18/19 Discharge Summary Problems reviewed: Yes Reason For Visit: URINARY TRACT INFECTION,ALTERED MENTAL STATUS Current Active Problems AMS (altered mental status) (Acute) Atrial fibrillation (Acute) Confused (Acute) Cough (Acute) HTN (hypertension) (Acute) Syncope and collapse (Acute) UTI (urinary tract infection) (Acute) Condition: Improved - Instructions Diet, Activity, Other Instructions: You came in for confusion. We imaged you head and did not find anything immediately wrong. We imaged you abdomen and again did not find anything immediately wrong. you should have another ultrasound of your abdomen in 6months - 1 year for multiple R. Kidney cysts. We tested your urine and noted that you have a urinary tract infection. We treated you with a complete course of IV abx. You were noted to have pain in your toes and you tested positive for an immediate gout attack. We started you on treatment for your gout. You were evaluated by cardiology, psychology, infectious disease and speech and swallow. We noticed that your heart rate was going fast so we adjusted your medications We have made some changes to your medications. We increased your Metoprolol Succinate (Toprol XL) to 50mg ONCE a day We have started you on Colchicine 0.6 mg ONCE a day with the last dose on 11/16/19 We have started you Thiamine 100 mg ONCE a day We have started you on Gabapentin 300mg ONCE a day We have started you on Symbicort 80/4.5mg TWO Puffs EVERY 12 hours Please STOP taking Toprol 25mg and continue all your other home medications. You were evaluated in the hospital by Physical therapy and you would benefit from a rehabilitation program to get stronger before going home. Please follow up with your PCP within 1 week Please return to the ED if you are having worsening confusion, fevers, chest pain, chortness of breath or any concerning symptoms. Referrals: Olivia Francis MD [Staff Physician] - Tez Adams MD [Primary Care Provider] - 1 Week Yemi Aleman MD [Staff Physician] - Disposition: HOME - Home Medications Comprehensive Discharge Medication List: Ambulatory Orders Apixaban [Eliquis] 5 mg PO DAILY 03/13/17 Lisinopril [Zestril] 5 mg PO DAILY 03/13/17 Spironolactone [Aldactone -] 25 mg PO DAILY 03/13/17 Furosemide [Lasix] 20 mg PO DAILY 11/01/19 Ipratropium/Albuterol Sulfate [Iprat-Albut 0.5-3(2.5) mg/3 ml] 1 amp IH Q4H PRN 11/01/19 Levothyroxine [Synthroid -] 100 mcg PO DAILY 11/01/19 Pravastatin Sodium 10 mg PO HS 11/01/19 Budesonide/Formeterol Fumarate [SYMBICORT 80/4.5mcg -] 2 puff IH BID #1 inhaler 11/15/19 Colchicine [Colcrys] 0.6 mg PO DAILY #1 tab 11/15/19 Gabapentin [Neurontin -] 300 mg PO DAILY #30 capsule 11/15/19 Metoprolol Succinate [Toprol XL -] 50 mg PO DAILY #60 tab.sr.24h 11/15/19 Thiamine HCl [Vitamin B1 -] 250 mg PO DAILY #30 tablet 11/15/19 - Discharge Referral Referred to [facility] Med P.C.: No ATTENDING PHYSICIAN STATEMENT I saw and evaluated the patient. I reviewed the resident's note and discussed the case with the resident. I agree with the resident's findings and plan as documented. SUBJECTIVE: OBJECTIVE: ASSESSMENT AND PLAN:
--- NOTE | 2019-11-18 13:44 | PN ---
Progress Note, Physician - Current Medication List Current Medications: Active Medications Acetaminophen (Tylenol -) 650 mg PO Q6H PRN PRN Reason: PAIN LEVEL 6-10 Last Admin: 11/08/19 09:37 Dose: 650 mg Documented by: Albuterol Sulfate (Ventolin Hfa Inhaler -) 2 puff IH Q4H PRN PRN Reason: SHORT OF BREATH/WHEEZING Last Admin: 11/01/19 18:22 Dose: 2 puff Documented by: Apixaban (Eliquis -) 5 mg PO BID [facility] Last Admin: 11/18/19 10:37 Dose: 5 mg Documented by: Atorvastatin Calcium (Lipitor -) 10 mg PO HS [facility] Last Admin: 11/17/19 21:41 Dose: 10 mg Documented by: Budesonide/Formoterol Fumarate (Symbicort 80/4.5mcg -) 2 puff IH BID [facility] Last Admin: 11/18/19 10:39 Dose: 2 puff Documented by: Famotidine (Pepcid -) 20 mg PO DAILY [facility] Last Admin: 11/18/19 10:38 Dose: 20 mg Documented by: Furosemide (Lasix -) 20 mg PO DAILY [facility] Last Admin: 11/18/19 10:37 Dose: 20 mg Documented by: Gabapentin (Neurontin -) 300 mg PO DAILY [facility] Last Admin: 11/18/19 10:38 Dose: 300 mg Documented by: Insulin Aspart (Novolog Vial Sliding Scale -) 1 vial SQ [facility]; Protocol Last Admin: 11/18/19 11:54 Dose: 4 units Documented by: Levothyroxine Sodium (Synthroid -) 100 mcg PO AM [facility] Last Admin: 11/18/19 06:37 Dose: 100 mcg Documented by: Metoprolol Succinate (Toprol Xl -) 50 mg PO DAILY [facility] Last Admin: 11/18/19 10:37 Dose: 50 mg Documented by: Polyethylene Glycol (Miralax (For Daily Use) -) 17 gm PO DAILY [facility] Last Admin: 11/18/19 10:38 Dose: 17 gm Documented by: Senna (Senna -) 1 tab PO BID [facility] Last Admin: 11/18/19 10:37 Dose: 1 tab Documented by: Spironolactone (Aldactone -) 25 mg PO DAILY [facility] Last Admin: 11/18/19 10:38 Dose: 25 mg Documented by: Thiamine HCl (Vitamin B1 -) 250 mg PO DAILY [facility] Last Admin: 11/18/19 10:39 Dose: 250 mg Documented by: - Objective Vital Signs: Vital Signs Temperature 97.6 F 11/18/19 13:31 Pulse Rate 83 11/18/19 13:31 Respiratory Rate 18 11/18/19 13:31 Blood Pressure 153/69 11/18/19 13:31 O2 Sat by Pulse Oximetry (%) 95 11/18/19 09:45 Labs: CBC, BMP 11/15/19 06:21 11/15/19 06:21 INR, PTT INR 1.13 (0.83-1.09) H 10/31/19 18:00
== END 2019-11-18 15:21 | DRG 689 ==
LOC: JER 15:41 → JERBED 21:40 → J4S 11-01 01:18
PROVIDERS: ADMIT Internal Medicine; ATTEND Internal Medicine
DX: N39.0 Urinary tract infection, site not specified (principal); G93.41 Metabolic encephalopathy; I50.22 Chronic systolic (congestive) heart failure; I48.20 Chronic atrial fibrillation, unspecified; F10.27 Alcohol dependence with alcohol-induced persisting dementia; I42.8 Other cardiomyopathies; F05 Delirium due to known physiological condition; I11.0 Hypertensive heart disease with heart failure; I25.10 Atherosclerotic heart disease of native coronary artery without angina pectoris; Z79.01 Long term (current) use of anticoagulants; Z86.73 Personal history of transient ischemic attack (TIA), and cerebral infarction without residual deficits; D75.89 Other specified diseases of blood and blood-forming organs; E86.0 Dehydration; J44.9 Chronic obstructive pulmonary disease, unspecified; Z20.828 Contact with and (suspected) exposure to other viral communicable diseases; I27.20 Pulmonary hypertension, unspecified; I34.0 Nonrheumatic mitral (valve) insufficiency; N40.0 Benign prostatic hyperplasia without lower urinary tract symptoms; D52.9 Folate deficiency anemia, unspecified; M10.9 Gout, unspecified; N28.1 Cyst of kidney, acquired
CPT/HCPCS: 36415; 70450-TC; 70551-TC; 71045-TC-FY; 76705-TC; 80048; 80053; 80061; 80307; 81003; 82140; 82550; 82607; 82746; 82962; 83036; 83605; 83721; 83735; 84100; 84443; 84484; 84550; 85025; 85027; 85610; 85730; 86780; 86850; 86900; 86901; 87086; 87186; 93005; 93010; 94010; 97116-GP; 97161-GP; 99285-25; J0131; U0003

== ENCOUNTER 2019-11-21 22:21 | Inpatient (IN) | payer OTHER ==
[2019-11-21 22:40] VITALS: BMI 27.8
--- OUTSIDE RECORDS SUMMARY | 2019-11-21 22:43 | XMS ---
:1930 Author Organization [facility] Care Team Providers Name Role Phone ED STAFF PHYSICIANJULISA Unavailable Unavailable KEMAR GRIGGS Unavailable Unavailable GEORGI VASQUEZ Unavailable Unavailable Billy Stephenson Unavailable [phone] ED STAFF PHYSICIAN, STAFF Unavailable Unavailable ED STAFF PHYSICIANSHAREE Unavailable Unavailable Aditya Damon DPM Unavailable Unavailable Rashawn Damon DPM Unavailable Unavailable Rashawn Damon DPM Unavailable Unavailable [place] Unavailable [phone] ALYSHA Moreno Unavailable Unavailable Re-disclosure Warning The records that you are about to access may contain information from federally- assisted alcohol or drug abuse programs. If such information is present, then the following federally mandated warning applies: This information has been disclosed to you from records protected by federal confidentiality rules (42 CFR part 2). The federal rules prohibit you from making any further disclosure of this information unless further disclosure is expressly permitted by the written consent of the person to whom it pertains or as otherwise permitted by 42 CFR part 2. A general authorization for the release of medical or other information is NOT sufficient for this purpose. The Federal rules restrict any use of the information to criminally investigate or prosecute any alcohol or drug abuse patient.The records that you are about to access may contain highly sensitive health information, the redisclosure of which is protected by Article 27-F of the [facility] Public Health law. If you continue you may haveaccess to information: Regarding HIV / AIDS; Provided by facilities licensed or operated by the [facility] Office of Mental Health; or Provided by the [facility] Office for People With Developmental Disabilities. If such information is present, then the following [facility] mandated warning applies: This information has been disclosed to you from confidential records which are protected by state law. State law prohibits you from making any further disclosure of this information without the specific written consent of the person to whom it pertains, or as otherwise permitted by law. Any unauthorized further disclosure in violation of state law may result in a fine or group home sentence or both. A general authorization for the release of medical or other information is NOT sufficient authorization for further disclosure. Allergies and Adverse Reactions Type Description Substance Reaction Status Data Source(s ) Propensity to Propensity to Propensity to NEXTG EN ([facility] adverse reactions adverse reactions adverse reactions [facility] Medical (disorder) (disorder) (disorder) Center) Encounters Encounter Providers Location Date Indications Data Source(s ) Outpatient 08/31/2019 [facility] 09:58:00 Medical Center AM EDT Outpatient 08/31/2019 [facility] 12:00:00 [facility] AM EDT Outpatient 08/23/2019 [facility] 03:35:00 Medical Center PM EDT Outpatient Attender: LACI Donald 08/23/2019 [place] [facility] AGUERO 10:27:00 Medical Cent er PAdmitter: AM EDT LACI AGUERO PReferrer: LACI AGUERO P OutpatientOFFICE/ Attender: [facility] 08/23/2019 LILLY[facility] ([facility] OUTPATIENT VISIT, Dolores Stephenson 10:27:00 [facility] EST AM EDT - Center) 08/23/2019 10:27:00 AM EDT Outpatient 08/23/2019 [facility] 12:00:00 Medical Center AM EDT Outpatient 04/06/2019 [facility] 02:22:00 Medical Center PM EST Outpatient 04/06/2019 [facility] 12:00:00 Medical Center AM EST Outpatient Attender: GEORGI Donald 04/05/2019 [facility] ephs DENISAAdmitter: 12:56:00 Medical C enter GEORGI PM EST DENISAReferrer: GEORGI VASQUEZ OutpatientOFFICE/ Attender: [facility] 04/05/2019 [facility] ([facility] OUTPATIENT VISIT, Dolores Sachin 12:56:00 [facility] EST PM EST - Center) 04/05/2019 12:56:00 PM EST Outpatient 04/05/2019 [facility] 12:41:00 Medical Center PM EST Outpatient 04/05/2019 [facility] 12:00:00 Medical Center AM EST Outpatient Attender: Aditya Donald 03/23/2019 [facility] 01:42:00 Medical Center DPMAdmitter: PM EST Aditya Damon DPMReferrer: Aditya Damon DPM OutpatientOFFICE/ Attender: [facility] 03/23/2019 [facility] ([facility] OUTPATIENT VISIT, [place] Stephenson 01:42:00 [facility] Medical [facility] PM EST - Center) 03/23/2019 01:42:00 PM EST Outpatient 03/23/2019 [facility] 11:19:00 Medical Center AM EST Outpatient 03/23/2019 [facility] 12:00:00 Medical Center AM EST Emergency Attender: KEMAR Donald 03/21/2019 [facility] neal REINOSO 10:25:[address] SAttender: AM EST - JULISA ED STAFF 03/21/2019 PHYSICIANAttende 03:30:00 r: STAFF ED PM EST STAFF PHYSICIANAdmitte r: KEMAR Hoffmann Patient discharged. Outpatient 03/16/2019 [facility] 10:34:00 AM EST Medical C enter Outpatient 03/16/2019 [facility] 10:30:00 AM EST Medical C enter Outpatient 03/16/2019 [facility] 12:00:00 AM EST Medical C enter Outpatient Attender: LACI Donald 03/08/2019 [facility] ALYSHA AGUERO 09:54:00 AM EST Medical Center PAdmitter: LACI AGUERO PReferrer: LACI Moreno OutpatientOFFICE/O Attender: [facility] 03/08/2019 [facility] ([facility] UTPATIENT VISIT, Dolores Sachin 09:54:00 AM EST - [facility] EST 03/08/2019 Medical 09:54:00 AM EST Center) Outpatient 03/08/2019 [facility] 09:21:00 AM EST Medical C enter Outpatient 03/08/2019 [facility] 12:00:00 AM EST Medical C enter Outpatient Attender: LACI Donald 02/22/2019 [facility] ALYSHA AGUERO 09:56:00 AM [facility] Center PAdmitter: LACI AGUERO PReferrer: LACI Moreno OutpatientOFFICE/O Attender: [facility] 02/22/2019 [facility] ([facility] VISIT, Dolores Stephenson 09:56:00 AM [facility] EST 02/22/2019 Medical 09:56:00 AM EST Center) Outpatient 02/22/2019 [facility] 09:52:00 AM EST Medical C enter Outpatient 02/22/2019 [facility] 12:00:00 AM EST Medical C enter Emergency Attender: SHAREE Donald 01/14/2019 [facility] ED STAFF 08:32:00 AM [facility] PHYSICIANAttender 01/14/2019 : STAFF ED STAFF 01:54:00 PM EST PHYSICIANAdmitter : SHAREE ED STAFF PHYSICIAN Patient discharged. Outpatient H 08/17/2018 [facility] 10:49:00 AM EDT Medical C enter OutpatientOFFICE/OU Attender: [facility] 08/17/2018 [facility] ([facility] VISIT, [facility] 10:49:[address] [facility] 08/17/2018 [place]) 10:49:00 AM EDT Outpatient 08/17/2018 [facility] 09:27:00 AM EDT Medical C enter Outpatient 08/17/2018 [facility] 12:00:00 AM EDT Medical C enter Attender: [facility] 12/02/2017 [facility] ( [facility] Stephen[facility]2017 [place]) 01:01:00 PM EDT Attender: [facility] 08/20/2017 [facility] ([facility] Dol[facility] Stephenson [facility]2017 [place]) 10:21:00 AM EDT Attender: [facility] 04/16/2017 [facility] ([facility] 01:41:00 PM [facility] 04/16/2017 [place]) 01:41:00 PM EST Attender: [facility] 01/01/2017 [facility] 09:42:00 AM EDT Attender: [facility] 10/14/2016 [facility] ([facility] 01:59:00 PM T [facility] 10/14/2016 Center) 01:59:00 PM EDT [facility] ([facility] 01:20:00 PM [facility] 07/15/2016 [place]) 01:20:00 PM EDT Attender: [facility] Podiatry [facility] 04/29/2016 [facility]EXT [facility] ([facility] 01:55:00 PM EST [facility] 04/29/2016 [place]) 01:55:00 PM EST Attender: [facility] ([facility] 09:31:00 AM [facility] 09/11/2015 [place]) 09:31:00 AM EDT Medications Medication Brand Start Product Dose Route Administrative Pharmacy [facility] Indications Reaction Description Data Name Date Form Instructions Instructions Source(s) Ibuprofen ibupro . ORAL active take 1 NE XTGEN 400 MG Oral fen 2020 {tbl} tablet by (S aint Tablet 400 mg 12:00: oral route Kaden ephs ibuprofen tablet 00 AM every 4 - 6 Medical 400 mg EST hours as Center) tablet needed ammonium AmLact TOPICA active ammonium NEXTGEN lactate 120 in 2018 drop L lactate 120 (Saint MG/ML % 12:00: MG/ML [facility] Topical lotion 00 AM Topical Medica l Lotion EST Lotion Center) [Amlactin] [Amlactin] AmLactin 12 % lotion Hydrocortis hydroc 02/23/ TOPICA active apply by NEXTGEN one 5 MG/ML ortiso 2019 L topical (Sa int Topical ne 0.5 12:00: route 2 Russ hs Cream % 00 AM times every Medica l hydrocortis topica EST day a thin Center) one 0.5 % l layer to the topical cream affected cream area(s) Fluconazole flucon .00 ORAL active take 1 NEXTGEN 150 MG Oral azole 2019 {tbl} tablet by ( [facility] Tablet 150 mg 12:00: oral route Kaden ephs fluconazole tablet 00 AM once for M edical 150 mg EDT chapo Center) tablet infection of nails Fluconazole Difluc 12/02/ complet Flucon azole NEXTGEN 150 MG Oral an 150 2018 ed 150 MG Oral (Saint Tablet mg 12:00: Tablet [facility] [Diflucan] tablet 00 AM [Diflucan] Medical Diflucan EDT Center) 150 mg tablet Capsaicin capsai 01/01/ TOPICA active apply b y NEXTGEN 0.25 MG/ML charity 2017 L topical (Saint Topical 0.025 12:00: route 3 Jose s Cream % 00 AM times every Medica l capsaicin topica EDT day to the nt) 0.025 % l affected topical cream area(s) cream apixaban complet Eliquis Saint (Eliquis) 5 [facility] mg [facility] lisinopril complet [facility] 5 mg Tablet [facility] levothyroxi complet [facility] ne 100 mcg [facility] Tablet Medical [place] spironolact complet [facility] one 25 mg [facility] Tablet Medical [place] ipratropium complet [facility] -albuterol [facility] 0.5 mg-3 mg Medical (2.5 mg Center base)/3 mL Solution for Nebulizatio n pravastatin complet [facility] 10 mg [facility] Tablet Medical Center furosemide complet [facility] 20 mg [facility] Tablet Medical [place] metoprolol complet [facility] succinate [facility] 25 mg Medical Tablet Center Extended Release 24 hr Sulfamethox sulfam 1 complet Emiliano nt azole 800 ethoxa ed [facility] MG / zole-t Medical Trimethopri rimeth Center m 160 MG oprim Oral Tablet 800 sulfamethox mg-160 azole-trime mg thoprim 800 Tablet mg-160 mg , Tablet, Ordere Ordered By: d By: Julisa Rodriguez, sonal MDDirection Lengayle, s: 1 tablet MDDire oral twice ctions a day : 1 tablet oral twice a day Insurance Providers Payer name Policy type Policy ID Covered Covered republican's Policy P melissa / Coverage republican ID relationship to Raymundo Inf ormation type raymundo DEMOND MEDICARE [id number] SP [id number] MEDICAID [id number] SP [id number] [place] [id number] HEALTHCARE (MEDICARE) [place] [id number] [facility] [id number] HEALTHCARE MCARE OPD W [id number] [facility] [id number] [facility] OPD Problems, Conditions, and Diagnoses Code Display Name Description Problem Type Effective Data Sour ce(s) Dates M79.671 Pain in right foot PAIN IN RIGHT FOOT Diagnosis 0 [facility] 10:27:00 AM [facility] M79.672 Pain in left foot PAIN IN LEFT FOOT Diagnosis 08/23/2019 [facility] 10:27:00 AM Medical [facility] EDT 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 NAILS 10:27:00 AM Medical Center EDT M10.9 Gout, unspecified GOUT, UNSPECIFIED Diagnosis 04/05/2019 [facility] 12:56:00 PM Medical [facility] EST 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 04/05/2019 [facility] vascular disease, VASCULAR DISEASE, 12:56:00 PM Medical Center unspecified UNSPECIFIED EST M19.071 Primary PRIMARY Diagnosis 03/23/2019 [facility] osteoarthritis, OSTEOARTHRITIS, 01:42:00 PM Med ical Center right ankle and RIGHT ANKLE AND EST foot FOOT I10 Essential ESSENTIAL Diagnosis 03/21/2019 [facility] (primary) (PRIMARY) 10:25:00 AM Medical [facility] hypertension HYPERTENSION EST I50.9 Heart failure, HEART FAILURE, Diagnosis 03/21/2019 [facility] unspecified UNSPECIFIED 10:25:[address] EST L30.9 Dermatitis, DERMATITIS, Diagnosis 03/08/2019 [facility] Garcia s unspecified UNSPECIFIED 09:54:[address] EST R06.00 Dyspnea, DYSPNEA, Diagnosis 01/14/2019 [facility] unspecified UNSPECIFIED 08:32:[address] EST N39.0 Urinary tract URINARY TRACT Diagnosis 01/14/2019 [facility] Betty mckinney infection, site INFECTION, SITE 08:32:00 AM Med ical Center not specified NOT SPECIFIED EST R09.89 Other specified OTH SYMPTOMS AND Diagnosis 01/14/2019 Emiliano Jauregui symptoms and signs SIGNS INVOLVING 08:32:00 AM Medical Center involving the THE CIRC AND RESP EST circulatory and SYSTEMS respiratory systems Surgeries/Procedures Procedure Description Date Indications Data Source(s) OFFICE/OUTPATIENT 08/23/2019 VIOLA [facility]ure[facility] VISIT, EST 12:00:00 AM EDT - Medical Ce nter) 08/23/2019 12:00:00 AM EDT DEBRIDE NAIL, 6 OR 08/23/2019 NEXT[facility] ( [facility] CHANDRA 12:00:00 AM EDT - Medical Ce nter) 08/23/2019 12:00:00 AM EDT OFFICE/OUTPATIENT 04/05/2019 NEXTGEN (S adal Juventino VISIT, EST 12:00:00 AM EST - Medical Ce nter) 04/05/2019 12:00:00 AM EST OFFICE/OUTPATIENT 03/23/2019 NEXTGEN (S aint [facility] VISIT, EST 12:00:00 AM EST - Medical Ce nter) 03/23/2019 12:00:00 AM EST OFFICE/OUTPATIENT 03/08/2019 NEXTGEN (S aiibrahima Juventino VISIT, EST 12:00:00 AM EST - Medical Ce nter) 03/08/2019 12:00:00 AM EST OFFICE/OUTPATIENT 02/22/2019 NEXTGEN (S adal Juventino VISIT, EST 12:00:00 AM EST - Medical Ce nter) 02/22/2019 12:00:00 AM EST DEBRIDE NAIL, 1-5 02/22/2019 NEXTGEN (S adal Juventino 12:00:00 AM EST - Medical Ce nter) 02/22/2019 12:00:00 AM EST OFFICE/OUTPATIENT 08/17/2018 NEXTGEN (S adal Juventino VISIT, EST 12:00:00 AM EDT - Medical Ce nter) 08/17/2018 12:00:00 AM EDT DEBRIDE NAIL, 6 OR 08/17/2018 [facility]EXTGEN ( [facility] CHANDRA 12:00:00 AM EDT - Medical Ce nter) 08/17/2018 12:00:00 AM EDT Results ID Date Data Source [id number] 11/17/2019 12:20:00 PM EDT [facility] Name Value Range Interpretation Description Data Sup porting Code Source(s) Document(s ) SARS [facility] coronavirus 2 RNA This lab was ordered by [facility] and reported by [facility]. ID Date Data Source [id number] 11/14/2019 02:30:00 PM EDT [facility] Name Value Range Interpretation Description Data Sup porting Code Source(s) Document(s ) SARS [facility] coronavirus 2 RNA This lab was ordered by [facility] and reported by [facility]. ID Date Data Source [id number] 11/10/2019 02:30:00 PM EDT [facility] Name Value Range Interpretation Description Data Sup porting Code Source(s) Document(s ) SARS [facility] coronavirus 2 RNA This lab was ordered by [facility] and reported by [facility]. ID Date Data Source [id number] 11/04/2019 05:30:00 AM EDT [facility] Name Value Range Interpretation Description Data Sup porting Code Source(s) Document(s ) SARS [facility] coronavirus 2 RNA This lab was ordered by [facility] and reported by [facility]. ID Date Data Source [id number] 11/01/2019 09:30:00 AM EDT [facility] Name Value Range Interpretation Description Data Sup porting Code Source(s) Document(s ) SARS [facility] coronavirus 2 RNA This lab was ordered by [facility] and reported by [facility]. ID Date Data Source Liver 03/21/2019 11:50:00 AM [facility] Profile.[id number] Name Value Range Interpretation Description Data Sup porting Code Source(s) Document(s ) Aspartate 17-59 <content [facility] aminotransferase styleCode="Bold"> Russ hs [Enzymatic Aspartate Medical activity/volume] Aminotransferase Center in Serum or Plasma (AST) </content>27 IU/L<content styleCode="Italic s"> (17-59 IU/L)</content> Alanine 7-50 <content [facility] aminotransferase styleCode="Bold"> Russ hs [Enzymatic Alanine Medical activity/volume] Aminotransferase Center in Serum or Plasma (ALT) </content>19 IU/L<content styleCode="Italic s"> (7-50 IU/L)</content> Bilirubin.total 0.2-1.3 <content [facility] [Mass/volume] in styleCode="Bold"> Russ hs Serum or Plasma Bilirubin Total Medical </content>0.9 Center MG/DL<content styleCode="Italic s"> (0.2-1.3 MG/DL)</content> Alkaline 38-126 <content [facility] phosphatase styleCode="Bold"> [facility] [Enzymatic Alkaline Medical activity/volume] Phosphatase (ALP) Cente r in Serum or Plasma </content>68 IU/L<content styleCode="Italic s"> (38-126 IU/L)</content> Albumin 3.5-5.0 <content [facility] [Mass/volume] in styleCode="Bold"> Russ hs Serum or Plasma Albumin Medical </content>4.0 Center G/DL<content styleCode="Italic s"> (3.5-5.0 G/DL)</content> ID Date Data Source LIPID.[id number] 03/21/2019 11:50:00 AM EST [facility] Center Name Value Range Interpretation Description Data Sup porting Code Source(s) Document(s ) Triglyceride < 150 <content [facility] [Mass/volume] in styleCode="Irene Juventino Serum or Plasma d">Triglycerid Medical es Center </content>78 MG/DL<content styleCode="Flores lics"> (< 150 MG/DL)</conten t> Cholesterol -<200 <content [facility] [Mass/volume] in styleCode="Irene Juvention Serum or Plasma d">Cholesterol Medical </content>145 Center MG/DL<content styleCode="Flores lics"> (-<200 MG/DL)</conten t> UNK < 100 <content Saint styleCode="Irene Juventino d">LDL-[facility] Center </content>86 MG/DL<content styleCode="Flores lics"> (< 100 MG/DL)</conten t> UNK > 60 Below low normal <content Saint styleCode="Irene Juventino d">HDL- Medical Cholesterol Center </content>43 MG/DL L<content styleCode="Flores lics"> (> 60 MG/DL)</conten t> ID Date Data Source HematologyRou.[id number] 03/21/2019 11:50:00 AM EST Emiliano nt [facility] 0500 Name Value Range Interpretation Description Data Sup porting Code Source(s) Document(s ) Erythrocytes 4.4-5.9 Below low normal <content [facility] [#/volume] in styleCode="Bold Juventino Blood by ">Red Blood Medical Automated count Cell Count Center </content>3.74 MCUMM L<content styleCode="Ital ics"> (4.4-5.9 MCUMM)</content > Hemoglobin 13.5-17. Below low normal <content Saint [Mass/volume] in 5 styleCode="Bold Juventino Blood ">Hemoglobin Medical </content>12.5 Center G/DL L<content styleCode="Ital ics"> (13.5-17.5 G/DL)</content> Leukocytes 4.4-11.0 <content Saint [#/volume] in styleCode="Bold Juventino Blood by ">White Blood Medical Automated count Cell Count Center </content>6.43 KCUMM<content styleCode="Ital ics"> (4.4-11.0 KCUMM)</content > Hematocrit 41.0-53. Below low normal <content Saint [Volume 0 styleCode="Bold Juventino Fraction] of ">Hematocrit Medical Blood by </content>36.9 Center Automated count % L<content styleCode="Ital ics"> (41.0-53.0 %)</content> Erythrocyte mean 80.0-100 <content [facility] corpuscular .0 styleCode="Bold Juventino volume [Entitic ">Mean Medical volume] by Corpuscular Center Automated count Volume </content>98.7 FL<content styleCode="Ital ics"> (80.0-100.0 FL)</content> Erythrocyte mean 26.0-34. <content [facility] corpuscular 0 styleCode="Bold Juventino hemoglobin ">Mean Medical [Entitic mass] Corposcular Center by Automated Hemoglobin count </content>33.4 PG<content styleCode="Ital ics"> (26.0-34.0 PG)</content> Platelet mean 8.0-11.0 <content [facility] volume [Entitic styleCode="Bold Juventino volume] in Blood ">Mean Platelet Medical by Automated Volume Center count </content>10.7 FL<content styleCode="Ital ics"> (8.0-11.0 FL)</content> Erythrocyte 11.5-14. <content [facility] distribution 5 styleCode="Woodrow Jauregui width [Ratio] by ">Red Cell Medical Automated count Distribution Center Width </content>11.8 %<content styleCode="Ital ics"> (11.5-14.5 %)</content> Platelets 130-400 <content Saint [#/volume] in styleCode="Bold Juventino Blood by ">Platelet Medical Automated count Count Center </content>209 KCUMM<content styleCode="Ital ics"> (130-400 KCUMM)</content > Erythrocyte mean 32.0-37. <content [facility] corpuscular 0 styleCode="Bold Juventino hemoglobin ">Mean Corpus. Medical concentration Hgb Center [Mass/volume] by Concentration Automated count (MCHC) </content>33.9 G/DL<content styleCode="Ital ics"> (32.0-37.0 G/DL)</content> UNK 0 <content Saint styleCode="Bold Juventino ">Nucleated Red Medical Blood Cell Center </content>0.0 /100<content styleCode="Ital ics"> (0 /100)</content> UNK 0.0 <content Saint styleCode="Bold Juventino ">Nucleated Red Medical Blood Cell Center Count </content>0.00 KCUMM<content styleCode="Ital ics"> (0.0 KCUMM)</content > ID Date Data Source GFR(Creatinine).[id number] 03/21/2019 11:50:00 AM EST Emiliano [facility] 0-0500 Name Value Range Interpretation Code Description Data Kay rce(s) Supporting Document(s ) UNK > 60 <content [facility] styleCode="Bold"> Medical Cent er EGFR </content>67 GFR<content styleCode="Italic s"> (> 60 GFR)</content> ID Date Data Source Coagulation 03/21/2019 11:50:00 [facility] Rout.[id number] EST Name Value Range Interpretation Description Data Sup porting Code Source(s) Document(s ) UNK 9.0-13.0 Above high normal <content [facility] styleCode="Bold" Ju[facility] >Protime Medical </content>14.3 Center SEC H<content styleCode="Itali cs"> (9.0-13.0 SEC)</content> INR in 0.80-1.2 Above high normal <content [facility] Platelet poor 0 styleCode="Bold" Juventino plasma by >INR Medical Coagulation </content>1.29 # Center assay H<content styleCode="Itali cs"> (0.80-1.20 #)</content> aPTT in 25.1-36. <content [facility] Platelet poor 5 styleCode="Bold" Juventino plasma by >Partial Medical Coagulation Thromboplastin Center assay Time </content>33.9 SEC<content styleCode="Itali cs"> (25.1-36.5 SEC)</content> ID Date Data Source CHMROUTINECCDA.[id number] 03/21/2019 11:50:00 AM EST Emiliano [facility] -0500 Name Value Range Interpretation Description Data Sup porting Code Source(s) Document(s ) UNK >= 1.0 <content [facility] styleCode="Irene Juventino d">AG Ratio Medical </content>1.2 Center <content styleCode="Flores lics"> (>= 1.0 )</content> Natriuretic < 450 Above high normal <content Saint peptide.B styleCode="Irene Juventino prohormone d">NT Pro BNP Medical N-Terminal </content>1410 Center [Mass/volume] PG/ML in Serum or H<content Plasma styleCode="Flores lics"> (< 450 PG/ML)</conten t> Protein 6.3-8.2 <content [facility] [Mass/volume] styleCode="Irene Juventino in Serum or d">Total Medical Plasma Protein Center </content>7.3 G/DL<content styleCode="Flores lics"> (6.3-8.2 G/DL)</content > UNK 2.3-3.5 <content [facility] styleCode="Irene Juventino d">Globulin Medical </content>3.3 Center G/DL<content styleCode="Flores lics"> (2.3-3.5 G/DL)</content > Urate 2.5-6.2 Above high normal <content Saint [Mass/volume] styleCode="Irene Juventino in Serum or d">Uric Acid Medical Plasma </content>8.7 Center MG/DL H<content styleCode="Flores lics"> (2.5-6.2 MG/DL)</conten t> ID Date Data Source CardiacMarkers.[id number] 03/21/2019 11:50:00 AM EST Emiliano nt [facility] -0500 Name Value Range Interpretation Description Data Sup porting Code Source(s) Document(s ) Troponin < 0.034 <content [facility] I.cardiac styleCode="Bold Juventino [Mass/volume ">Troponin I Medical ] in Serum </content>0.017 Center or Plasma NG/ML<content styleCode="Ital ics"> (< 0.034 NG/ML)</content > ID Date Data Source BMP.[id number] 03/21/2019 11:50:00 AM EST [facility] Center Name Value Range Interpretation Description Data Sup porting Code Source(s) Document(s ) Sodium 137-145 <content Saint [Moles/volume] in styleCode="Bold"> Jaskaran [facility] Serum or Plasma Sodium Medical </content>139 Center MEQ/L<content styleCode="Italic s"> (137-145 MEQ/L)</content> Carbon dioxide, 22-30 <content [facility] total styleCode="Bold"> Juventino [Moles/volume] in Carbon Dioxide Medical Serum or Plasma </content>29 Center MEQ/L<content styleCode="Italic s"> (22-30 MEQ/L)</content> Potassium 3.5-5.3 <content Saint [Moles/volume] in styleCode="Bold"> Jaskaran [facility] Serum or Plasma Potassium Medical </content>4.5 Center MEQ/L<content styleCode="Italic s"> (3.5-5.3 MEQ/L)</content> Chloride 98-107 <content [facility] [Moles/volume] in styleCode="Bold"> Jaskaran [facility] Serum or Plasma Chloride Medical </content>100 Center MEQ/L<content styleCode="Italic s"> (98-107 MEQ/L)</content> UNK 9-20 Above high <content Saint normal styleCode="Bold"> Juventino BUN </content>29 Medical MG/DL H<content Center styleCode="Italic s"> (9-20 MG/DL)</content> Calcium 8.4-10. <content Saint [Mass/volume] in 2 styleCode="Bold"> Russ hs Serum or Plasma Calcium Medical </content>9.9 Center MG/DL<content styleCode="Italic s"> (8.4-10.2 MG/DL)</content> UNK > 60 <content Saint styleCode="Bold"> Juventino EGFR </content>67 Medical GFR<content Center styleCode="Italic s"> (> 60 GFR)</content> Creatinine 0.5-1.3 <content [facility] [Mass/volume] in styleCode="Bold"> Russ hs Serum or Plasma Creatinine Medical </content>1.1 Center MG/DL<content styleCode="Italic s"> (0.5-1.3 MG/DL)</content> Glucose 74-106 Above high <content Saint [Mass/volume] in normal styleCode="Bold"> Russ hs Serum or Plasma Glucose Medical </content>137 Center MG/DL H<content styleCode="Italic s"> (74-106 MG/DL)</content> Alanine 7-50 <content [facility] aminotransferase styleCode="Bold"> Russ hs [Enzymatic Alanine Medical activity/volume] Aminotransferase Center in Serum or Plasma (ALT) </content>19 IU/L<content styleCode="Italic s"> (7-50 IU/L)</content> Alkaline 38-126 <content [facility] phosphatase styleCode="Bold"> Juventino [Enzymatic Alkaline Medical activity/volume] Phosphatase (ALP) Cente r in Serum or Plasma </content>68 IU/L<content styleCode="Italic s"> (38-126 IU/L)</content> Bilirubin.total 0.2-1.3 <content [facility] [Mass/volume] in styleCode="Bold"> Russ hs Serum or Plasma Bilirubin Total Medical </content>0.9 Center MG/DL<content styleCode="Italic s"> (0.2-1.3 MG/DL)</content> Aspartate 17-59 <content [facility] aminotransferase styleCode="Bold"> Russ hs [Enzymatic Aspartate Medical activity/volume] Aminotransferase Center in Serum or Plasma (AST) </content>27 IU/L<content styleCode="Italic s"> (17-59 IU/L)</content> Albumin 3.5-5.0 <content [facility] [Mass/volume] in styleCode="Bold"> Russ hs Serum or Plasma Albumin Medical </content>4.0 Center G/DL<content styleCode="Italic s"> (3.5-5.0 G/DL)</content> ID Date Data Source CardiacMarkers.[id number] 01/14/2019 12:05:00 PM EST [facility] -0500 Name Value Range Interpretation Description Data Sup porting Code Source(s) Document(s ) Troponin < 0.034 <content [facility] I.cardiac styleCode="Bold Juventino [Mass/volume ">Troponin I Medical ] in Serum </content>0.013 Center or Plasma NG/ML<content styleCode="Ital ics"> (< 0.034 NG/ML)</content > ID Date Data Source Urinalysis.[id number] 01/14/2019 10:46:00 AM EST [facility] 0 Name Value Range Interpretation Description Data Sup porting Code Source(s) Document(s ) Color of Urine YELLOW <content Saint styleCode="Irene Juventino d">Color, Medical Urine Center </content>YELL OW <content styleCode="Flores lics"> (YELLOW )</content> Glucose NEGATIVE <content Saint [Mass/volume] styleCode="Irene Juventino in Urine by d">Urine Medical Test strip Glucose Center </content>NEGA TIVE MG/DL<content styleCode="Flores lics"> (NEGATIVE MG/DL)</conten t> Ketones NEGATIVE <content Saint [Mass/volume] styleCode="Irene Juventino in Urine by d">Urine Medical Test strip Ketone Center </content>NEGA TIVE MG/DL<content styleCode="Flores lics"> (NEGATIVE MG/DL)</conten t> UNK CLEAR <content Saint styleCode="Irene Juventino d">Urine Medical Clarity Center </content>KANDICE R <content styleCode="Flores lics"> (CLEAR )</content> UNK NEGATIVE <content Saint styleCode="Ireen Juventino d">Urine Medical Bilirubin Center </content>NEGA TIVE <content styleCode="Flores lics"> (NEGATIVE )</content> Hemoglobin NEGATIVE <content Saint [Presence] in styleCode="Irene Garcias Urine by Test d">Urine Blood Medical strip </content>NEGA Center TIVE <content styleCode="Flores lics"> (NEGATIVE )</content> pH of Urine by 4.5-8.0 <content Saint Test strip styleCode="Irene Juventino d">Urine pH Medical </content>6.0 Center <content styleCode="Flores lics"> (4.5-8.0 )</content> Specific 1.015-1.02 <content Saint gravity of 5 styleCode="Irene Garcias Urine by Test d">Urine Medical strip Specific Center Duson </content>1.01 5 <content styleCode="Flores lics"> (1.015-1.025 )</content> Protein NEGATIVE <content Saint [Mass/volume] styleCode="Irene Juventino in Urine by d">Urine Medical Test strip Protein Center </content>NEGA TIVE MG/DL<content styleCode="Flores lics"> (NEGATIVE MG/DL)</conten t> Urobilinogen 0.2-1.0 <content Saint [Units/volume] styleCode="Irene Juventino in Urine by d">Urine Medical Test strip Urobilinogen Center </content>0.2 MG/DL<content styleCode="Flores lics"> (0.2-1.0 MG/DL)</conten t> Nitrite NEGATIVE <content Saint [Presence] in styleCode="Irene Garicas Urine by Test d">Urine Medical strip Nitrite Center </content>POSI TIVE <content styleCode="Flores lics"> (NEGATIVE )</content> UNK 0-3 <content Saint styleCode="Irene Jauregui d">Urine White Medical Blood Cell Center </content>10 - 20 HPF<content styleCode="Flores lics"> (0-3 HPF)</content> Leukocyte NEGATIVE <content Saint esterase styleCode="Irene Jauregui [Presence] in d">Urine Medical Urine by Test Leukocyte Center strip </content>MODE RATE <content styleCode="Flores lics"> (NEGATIVE )</content> UNK 0-3 <content Saint styleCode="Irene Jauregui d">Urine Red Medical Blood Cell Center </content>0-3 HPF<content styleCode="Flores lics"> (0-3 HPF)</content> UNK NEGATIVE <content Saint styleCode="Irene Jauregui d">Urine Medical Bacteria Center </content>FEW HPF<content styleCode="Flores lics"> (NEGATIVE HPF)</content> ID Date Data Source Microbiology.[id number] 01/14/2019 10:46:00 AM EST [facility] 500 Name Value Range Interpretation Code Description Data Kay rce(s) Supporting Document(s ) UNK <item><content [facility] Jauregui styleCode="Bold">Cul Medical C enter ture Report </content>
<tabl e><tbody><tr><td>Spe sydneeen Number:</td><td>[id number]</td></tr><tr>< td>Sample Collection Date/Time: </td><td>01/14/2019 10:46 AM</td></tr><tr><td> Specimen Source:</td><td>URIN E</td></tr><tr><td>U rine Culture:</td><td>Col lection Plate Date: 01/14/2019 10:50 </td></tr><tr><td>Cu lture Status:</td><td>Prel iminary </td></tr><tr><td>Cu lture Report:</td><td>Cult ure in progress </td></tr></tbody></ table></item> UNK <item><content [facility] styleCode="Bold">Cul Medical C enter ture Status </content>
<tabl e><tbody><tr><td>Spe cimen Number:</td><td>[id number]</td></tr><tr>< td>Sample Collection Date/Time: </td><td>01/14/2019 10:46 AM</td></tr><tr><td> Specimen Source:</td><td>URIN E</td></tr><tr><td>C ulture Status:</td><td>Dahlia l </td></tr><tr><td>Cu lture Report:</td><td>PLEA SE REPEAT SPECIMEN COLLECTION </td></tr><tr><td>Ur ine Culture:</td><td>Col lection Plate Date: 01/14/2019 10:50 </td></tr><tr><td>Or ganism 1:</td><td>VIRIDANS STREPTOCOCCUS GROUP </td></tr><tr><td>Or ganism 2:</td><td>CORYNEBAC TERIUM SPECIES </td></tr><tr><td>Or ganism 3:</td><td>COAGULASE NEGATIVE STAPHYLOCOCCUS </td></tr><tr><td>Or ganism 4:</td><td>BETA HEMOLYTIC STREPTOCOCCUS, GROUP F </td></tr></tbody></ table>
<table border="2"><tbody><t r><td></td><td>1</td ><td>2</td><td>3</td ><td>4</td></tr><tr> <td>Comment</td><td> </td><td></td><td></ td><td></td></tr><tr ><td>Result Value</td><td>VIRIDA NS STREPTOCOCCUS GROUP </td><td>CORYNEBACTE RIUM SPECIES </td><td>COAGULASE NEGATIVE STAPHYLOCOCCUS </td><td>BETA HEMOLYTIC STREPTOCOCCUS, GROUP F </td></tr><tr><td>Re sult Status</td><td>Final Result</td><td>Final Result</td><td>Final Result</td><td>Final Result</td></tr><tr> <td></td><td></td><t d></td><td></td><td> </td></tr></tbody></ table></item> ID Date Data Source [id number] 01/14/2019 10:05:00 AM [facility] Name Value Range Interpretation Description Data Sup porting Code Source(s) Document(s ) Potassium 3.5-5.3 <content Saint [Moles/volume styleCode="Irene Juventino ] in Serum or d">Potassium Medical Plasma </content>4.6 Center MEQ/L<content styleCode="Flores lics"> (3.5-5.3 MEQ/L)</conten t> ID Date Data Source Liver 01/14/2019 09:36:00 AM [facility] Profile.[id number] Name Value Range Interpretation Description Data Sup porting Code Source(s) Document(s ) Alanine 7-50 <content [facility] aminotransferase styleCode="Bold"> Russ hs [Enzymatic Alanine Medical activity/volume] Aminotransferase Center in Serum or Plasma (ALT) </content>18 IU/L<content styleCode="Italic s"> (7-50 IU/L)</content> Aspartate 17-59 <content [facility] aminotransferase styleCode="Bold"> Russ hs [Enzymatic Aspartate Medical activity/volume] Aminotransferase Center in Serum or Plasma (AST) </content>38 IU/L<content styleCode="Italic s"> (17-59 IU/L)</content> Alkaline 38-126 <content [facility] phosphatase styleCode="Bold"> Juventino [Enzymatic Alkaline Medical activity/volume] Phosphatase (ALP) Cente r in Serum or Plasma </content>51 IU/L<content styleCode="Italic s"> (38-126 IU/L)</content> Bilirubin.total 0.2-1.3 <content [facility] [Mass/volume] in styleCode="Bold"> Russ hs Serum or Plasma Bilirubin Total Medical </content>0.9 Center MG/DL<content styleCode="Italic s"> (0.2-1.3 MG/DL)</content> Albumin 3.5-5.0 <content [facility] [Mass/volume] in styleCode="Bold"> Russ hs Serum or Plasma Albumin Medical </content>3.9 Center G/DL<content styleCode="Italic s"> (3.5-5.0 G/DL)</content> ID Date Data Source HematologyRou.[id number] 01/14/2019 09:36:00 AM [facility]KEY [facility] 0500 Name Value Range Interpretation Description Data Sup porting Code Source(s) Document(s ) Leukocytes 4.4-11.0 <content Saint [#/volume] in styleCode="Bold [facility] Blood by ">White Blood Medical Automated count Cell Count Center </content>6.25 KCUMM<content styleCode="Ital ics"> (4.4-11.0 KCUMM)</content > Erythrocytes 4.4-5.9 Below low normal <content Saint [#/volume] in styleCode="Bold Juventino Blood by ">Red Blood Medical Automated count Cell Count Center </content>3.39 MCUMM L<content styleCode="Ital ics"> (4.4-5.9 MCUMM)</content > Hematocrit 41.0-53. Below low normal <content Saint [Volume 0 styleCode="Bold [facility] Fraction] of ">Hematocrit Medical Blood by </content>34.1 Center Automated count % L<content styleCode="Ital ics"> (41.0-53.0 %)</content> Hemoglobin 13.5-17. Below low normal <content Saint [Mass/volume] in 5 styleCode="Bold Juventino Blood ">Hemoglobin Medical </content>11.5 Center G/DL L<content styleCode="Ital ics"> (13.5-17.5 G/DL)</content> Erythrocyte mean 32.0-37. <content [facility] corpuscular 0 styleCode="Bold Juventino hemoglobin ">Mean Corpus. Medical concentration Hgb Center [Mass/volume] by Concentration Automated count (MCHC) </content>33.7 G/DL<content styleCode="Ital ics"> (32.0-37.0 G/DL)</content> Erythrocyte mean 26.0-34. <content [facility] corpuscular 0 styleCode="Bold Juventino hemoglobin ">Mean Medical [Entitic mass] Corposcular Center by Automated Hemoglobin count </content>33.9 PG<content styleCode="Ital ics"> (26.0-34.0 PG)</content> Erythrocyte mean 80.0-100 <content Saint corpuscular .0 styleCode="Bold Juventino volume [Entitic ">Mean Medical volume] by Corpuscular Center Automated count Volume </content>100.6 FL<content styleCode="Ital ics"> (80.0-100.0 FL)</content> Erythrocyte 11.5-14. <content Saint distribution 5 styleCode="Bold Juventino width [Ratio] by ">Red Cell Medical Automated count Distribution Center Width </content>11.9 %<content styleCode="Ital ics"> (11.5-14.5 %)</content> Platelets 130-400 <content Saint [#/volume] in styleCode="Bold Juventino Blood by ">Platelet Medical Automated count Count Center </content>185 KCUMM<content styleCode="Ital ics"> (130-400 KCUMM)</content > Platelet mean 8.0-11.0 <content Saint volume [Entitic styleCode="Bold Juventino volume] in Blood ">Mean Platelet Medical by Automated Volume Center count </content>10.3 FL<content styleCode="Ital ics"> (8.0-11.0 FL)</content> Neutrophils 36-66 Above high <content Saint [#/volume] in normal styleCode="Bold Juventino Blood by ">Neutrophil Medical Automated count </content>69.7 Center % H<content styleCode="Ital ics"> (36-66 %)</content> Lymphocytes 24.0-44. Below low normal <content Saint [#/volume] in 0 styleCode="Bold Juventino Blood by ">Lymphocyte Medical Automated count </content>17.0 Center % L<content styleCode="Ital ics"> (24.0-44.0 %)</content> UNK 1.0-4.8 <content Saint styleCode="Bold Juventino ">Lymphocyte Medical Count Center </content>1.06 KCUMM<content styleCode="Ital ics"> (1.0-4.8 KCUMM)</content > UNK 1.6-7.3 <content Saint styleCode="Bold Juventino ">Neutrophil Medical Count Center </content>4.36 KCUMM<content styleCode="Ital ics"> (1.6-7.3 KCUMM)</content > Monocytes 3.0-10.0 <content Saint [#/volume] in styleCode="Bold Juventino Blood by ">Monocyte Medical Automated count </content>8.0 Center %<content styleCode="Ital ics"> (3.0-10.0 %)</content> UNK 0.2-0.9 <content Saint styleCode="Bold Juventino ">Monocyte Medical Count Center </content>0.50 KCUMM<content styleCode="Ital ics"> (0.2-0.9 KCUMM)</content > UNK 0.0-0.6 <content Saint styleCode="Bold Juventino ">Eosinophil Medical Count Center </content>0.26 KCUMM<content styleCode="Ital ics"> (0.0-0.6 KCUMM)</content > Eosinophils 0-5.0 <content Saint [#/volume] in styleCode="Bold Juventino Blood by ">Eosinophil Medical Automated count </content>4.2 Center %<content styleCode="Ital ics"> (0-5.0 %)</content> Basophils 0.0-1.0 <content Saint [#/volume] in styleCode="Bold Juventino Blood by ">Basophil Medical Automated count </content>0.3 Center %<content styleCode="Ital ics"> (0.0-1.0 %)</content> UNK 0 <content Saint styleCode="Bold Juventino ">Nucleated Red Medical Blood Cell Center </content>0.0 /100<content styleCode="Ital ics"> (0 /100)</content> UNK 0.0-0.3 <content Saint styleCode="Bold Juventino ">Basophil Medical Count Center </content>0.02 KCUMM<content styleCode="Ital ics"> (0.0-0.3 KCUMM)</content > UNK 0-0.1 <content Saint styleCode="Bold Juventino ">Immature Medical Granulocyte Center Count </content>0.05 KCUMM<content styleCode="Ital ics"> (0-0.1 KCUMM)</content > UNK 0.0 <content Saint styleCode="Bold Juventino ">Nucleated Red Medical Blood Cell Center Count </content>0.00 KCUMM<content styleCode="Ital ics"> (0.0 KCUMM)</content > UNK < 1 <content Saint styleCode="Bold Juventino ">Immature Medical Granulocyte Center Ratio </content>0.8 %<content styleCode="Ital ics"> (< 1 %)</content> ID Date Data Source GFR(Creatinine).[id number] 01/14/2019 09:36:00 AM MIKEY Emiliano [facility] 0-0500 Name Value Range Interpretation Code Description Data Kay rce(s) Supporting Document(s ) UNK > 60 <content [facility] styleCode="Bold"> Medical Cent er EGFR </content>75 GFR<content styleCode="Italic s"> (> 60 GFR)</content> ID Date Data Source Coagulation 01/14/2019 09:36:00 AM [facility] Center Rout.[id number] EST Name Value Range Interpretation Description Data Sup porting Code Source(s) Document(s ) UNK 9.0-13.0 Above high normal <content Saint styleCode="Bold" Juventino >Protime Medical </content>14.1 Center SEC H<content styleCode="Itali cs"> (9.0-13.0 SEC)</content> INR in 0.80-1.2 Above high normal <content Saint Platelet poor 0 styleCode="Bold" Juventino plasma by >INR Medical Coagulation </content>1.27 # Center assay H<content styleCode="Itali cs"> (0.80-1.20 #)</content> aPTT in 25.1-36. <content Saint Platelet poor 5 styleCode="Bold" Juventino plasma by >Partial Medical Coagulation Thromboplastin Center assay Time </content>28.2 SEC<content styleCode="Itali cs"> (25.1-36.5 SEC)</content> ID Date Data Source MROUTINECCDA.[id number] 01/14/2019 09:36:00 AM EST Emiliano [facility] -0500 Name Value Range Interpretation Description Data Sup porting Code Source(s) Document(s ) UNK 2.3-3.5 <content Saint styleCode="Irene Juventino d">Globulin Medical </content>3.3 Center G/DL<content styleCode="Flores lics"> (2.3-3.5 G/DL)</content > UNK >= 1.0 <content Saint styleCode="Irene Juventino d">AG Ratio Medical </content>1.2 Center <content styleCode="Flores lics"> (>= 1.0 )</content> Natriuretic < 450 Above high normal <content Saint peptide.B styleCode="Irene Juventino prohormone d">NT Pro BNP Medical N-Terminal </content>1490 Center [Mass/volume] PG/ML in Serum or H<content Plasma styleCode="Flores lics"> (< 450 PG/ML)</conten t> Protein 6.3-8.2 <content Saint [Mass/volume] styleCode="Irene Juventino in Serum or d">Total Medical Plasma Protein Center </content>7.2 G/DL<content styleCode="Flores lics"> (6.3-8.2 G/DL)</content > ID Date Data Source CardiacMarkers.[id number] 01/14/2019 09:36:00 AM MIKEY alexandra [facility] -0500 Name Value Range Interpretation Description Data Sup porting Code Source(s) Document(s ) Troponin < 0.034 <content Saint I.cardiac styleCode="Bold Juventino [Mass/volume ">Troponin I Medical ] in Serum </content>0.015 Center or Plasma NG/ML<content styleCode="Ital ics"> (< 0.034 NG/ML)</content > ID Date Data Source [id number] 01/14/2019 09:36:00 AM EST [facility] Name Value Range Interpretation Description Data Sup porting Code Source(s) Document(s ) Sodium 137-145 Below low <content Saint [Moles/volume] in normal styleCode="Bold"> Jaskaran phs Serum or Plasma Sodium Medical </content>136 Center MEQ/L L<content styleCode="Italic s"> (137-145 MEQ/L)</content> Potassium <content Saint [Moles/volume] in styleCode="Bold"> Jaskaran phs Serum or Plasma Potassium Medical </content>Test Center not performed. MEQ/L (Reference Range: not available)
Carbon dioxide, 22-30 <content Saint total styleCode="Bold"> Juventino [Moles/volume] in Carbon Dioxide Medical Serum or Plasma </content>27 Center MEQ/L<content styleCode="Italic s"> (22-30 MEQ/L)</content> Creatinine 0.5-1.3 <content Saint [Mass/volume] in styleCode="Bold"> Russ hs Serum or Plasma Creatinine Medical </content>1.0 Center MG/DL<content styleCode="Italic s"> (0.5-1.3 MG/DL)</content> Chloride 98-107 <content Saint [Moles/volume] in styleCode="Bold"> Jaskaran phs Serum or Plasma Chloride Medical </content>102 Center MEQ/L<content styleCode="Italic s"> (98-107 MEQ/L)</content> UNK 9-20 Above high <content Saint normal styleCode="Bold"> Juventino BUN </content>22 Medical MG/DL H<content Center styleCode="Italic s"> (9-20 MG/DL)</content> Glucose 74-106 Above high <content Saint [Mass/volume] in normal styleCode="Bold"> Russ hs Serum or Plasma Glucose Medical </content>144 Center MG/DL H<content styleCode="Italic s"> (74-106 MG/DL)</content> Calcium 8.4-10. <content Saint [Mass/volume] in 2 styleCode="Bold"> Russ hs Serum or Plasma Calcium Medical </content>9.5 Center MG/DL<content styleCode="Italic s"> (8.4-10.2 MG/DL)</content> Aspartate 17-59 <content Saint aminotransferase styleCode="Bold"> Russ hs [Enzymatic Aspartate Medical activity/volume] Aminotransferase Center in Serum or Plasma (AST) </content>38 IU/L<content styleCode="Italic s"> (17-59 IU/L)</content> UNK > 60 <content Saint styleCode="Bold"> Juventino EGFR </content>75 Medical GFR<content Center styleCode="Italic s"> (> 60 GFR)</content> Alanine 7-50 <content [facility] aminotransferase styleCode="Bold"> Russ hs [Enzymatic Alanine Medical activity/volume] Aminotransferase Center in Serum or Plasma (ALT) </content>18 IU/L<content styleCode="Italic s"> (7-50 IU/L)</content> Alkaline 38-126 <content Saint phosphatase styleCode="Bold"> Juventino [Enzymatic Alkaline Medical activity/volume] Phosphatase (ALP) Cente r in Serum or Plasma </content>51 IU/L<content styleCode="Italic s"> (38-126 IU/L)</content> Bilirubin.total 0.2-1.3 <content Saint [Mass/volume] in styleCode="Bold"> Russ hs Serum or Plasma Bilirubin Total Medical </content>0.9 Center MG/DL<content styleCode="Italic s"> (0.2-1.3 MG/DL)</content> Albumin 3.5-5.0 <content Saint [Mass/volume] in styleCode="Bold"> Russ hs Serum or Plasma Albumin Medical </content>3.9 Center G/DL<content styleCode="Italic s"> (3.5-5.0 G/DL)</content> Procedure Social History Code Duration Value Status Description Data Source(s ) Smoking 03/21/2019 Denies Ever completed Denies Ever Smoked [facility]ino 11:30:00 AM EST Smoked Medical C enter Smoking 03/21/2019 Denies Ever completed Denies Ever Smoked [facility] 11:00:00 AM EST Smoked Medical C enter Smoking 03/21/2019 Denies Ever completed Denies Ever Smoked [facility] 10:36:00 AM EST Smoked Medical C enter Smoking 01/14/2019 Denies Ever completed Denies Ever Smoked [facility] 09:05:00 AM EST Smoked Medical C enter Smoking 01/14/2019 Denies Ever completed Denies Ever Smoked [facility] 08:57:00 AM EST Smoked Medical C enter Smoking 01/14/2019 Denies Ever completed Denies Ever Smoked [facility]ino 08:38:00 AM EST Smoked Medical C enter Smoking Unknown if ever completed Unknown if ever Tamanna delfino Garcias smoked smoked Medical Center Vital Signs ID Date Data Source UNK Name Value Range Interpretation Code Description Data Source(s) Respiratory rate 20 /min 20 /min [facility] ([facility]) Body temperature 37.00 Brit 37.00 Brit [facility] ([facility]) Heart rate 76 /min 76 /min [facility] ([facility]) Diastolic blood 89 mm[Hg] 89 mm[Hg] [facility] ( [facility]) Systolic blood 131 mm[Hg] 131 mm[Hg] [facility] ([facility]) Respiratory rate 16 /min 16 /min [facility] Body temperature 37.00 Brit 37.00 [facility] Respiratory rate 18 /min 18 /min [facility] ([facility]) Body temperature 37.00 Brit 37.00 Brit [facility] ([facility]) Heart rate 65 /min 65 /min [facility] ([facility]) Diastolic blood 63 mm[Hg] 63 mm[Hg] [facility] Systolic blood 108 mm[Hg] 108 mm[Hg] [facility] Body temperature 36.173106 36.072088 [facility] Respiratory rate 18 /min 18 /min [facility] Oxygen saturation 98 % 98 % [facility] in Arterial [facility] by Pulse oximetry Heart rate 58 /min 58 /min [facility] Diastolic blood 68 mm[Hg] 68 mm[Hg] [facility] Systolic blood 128 mm[Hg] 128 mm[Hg] [facility] Body weight 98.746572 kg 98.303660 kg [facility] Body temperature 36.899589 36.795326 [facility] Respiratory rate 18 /min 18 /min [facility] Oxygen saturation 97 % 97 % [facility] in Arterial [facility] by Pulse oximetry Heart rate 61 /min 61 /min [facility] Body height 180.319721 180.571246 cm [facility] Diastolic blood 80 mm[Hg] 80 mm[Hg] [facility] Systolic blood 141 mm[Hg] 141 mm[Hg] [facility] Body mass index 30.2 kg/m2 30.2 kg/m2 [facility] (BMI) [Ratio] [facility] ter Oxygen saturation 97 % 97 % [facility] ([facility] Arterial blood [facility] by Pulse oximetry Center) Respiratory rate 19 /min 19 /min [facility] ([facility]) Body temperature 36.50 Brit 36.50 Brit [facility] ([facility]) Heart rate 96 /min 96 /min [facility] ([facility]) Diastolic blood 84 mm[Hg] 84 mm[Hg] [facility] ( [facility] pressure [facility]) Systolic blood 170 mm[Hg] 170 mm[Hg] [facility] ([facility] pressure [facility]) Body weight 101.151 kg 101.151 kg [facility] Respiratory rate 20 /min 20 /min [facility] ([facility]) Body temperature 36.44 Brit 36.44 Brit [facility] ([facility]) Heart rate 79 /min 79 /min [facility] ([facility]) Diastolic blood 62 mm[Hg] 62 mm[Hg] [facility] ( [facility]) Systolic blood 134 mm[Hg] 134 mm[Hg] [facility] ([facility] pressure [facility]) Body temperature 36.375204 36.884145 [facility] Respiratory rate 18 /min 18 /min [facility] Oxygen saturation 98 % 98 % [facility] Arter[facility] blood [facility] by Pulse oximetry Heart rate 71 /min 71 /min [facility] Diastolic blood 87 mm[Hg] 87 mm[Hg] [facility] pressure [facility] Systolic blood 153 mm[Hg] 153 mm[Hg] [facility] Body weight 98.617891 kg 98.993958 kg [facility] Body temperature 36.311693 36.901852 [facility] Respiratory rate 18 /min 18 /min [facility] Oxygen saturation 98 % 98 % [facility] Arterial blood [facility] by Pulse oximetry Heart rate 71 /min 71 /min [facility] Diastolic blood 86 mm[Hg] 86 mm[Hg] [facility] pressure [facility] Systolic blood 143 mm[Hg] 143 mm[Hg] [facility] Respiratory rate 20 /min 20 /min [facility] ([facility]) Body temperature 37.06 Brit 37.06 Brit [facility] ([facility]) Heart rate 72 /min 72 /min [facility] ([facility]) Diastolic blood 65 mm[Hg] 65 mm[Hg] [facility] ( [facility]) Systolic blood 137 mm[Hg] 137 mm[Hg] NEXTGEN (S aint pressure [facility]) Patient Treatment Plan of Care Planned Activity Planned Date Details Description Data Source (s) Ibuprofen 400 MG Oral 04/05/2019 NEXTGE N (Saint Tablet 12:00:00 AM [facility]) ammonium lactate 120 MG/ML 03/08/2019 N EXTGEN ([facility] Topical Lotion [Amlactin] 12:00:00 AM [facility]) Hydrocortisone 5 MG/ML 02/23/2019 NEXTG EN ([facility] Topical Cream 12:00:00 AM [facility]) Fluconazole 150 MG Oral 08/17/2018 NEXT GEN ([facility] Tablet 12:00:[address] [facility]) Fluconazole 150 MG Oral 12/02/2017 NEXT GEN ([facility] Tablet [Diflucan] 12:00:00 AM [facility]) Capsaicin 0.25 MG/ML 01/01/2017 NEXTGEN ([facility] Topical Cream 12:00:00 AM [facility]) ipratropium-albuterol 0.5 [facility] mg-3 mg (2.5 mg base)/3 mL [facility] Solution for Nebulization furosemide 20 mg [facility] apixaban (Eliquis) 5 mg [facility] spironolactone 25 mg Tablet [facility] pravastatin 10 mg Tablet [facility] metoprolol succinate 25 mg [facility]t Extended Release 24 [facility] hr lisinopril 5 mg Tablet [facility] levothyroxine 100 mcg [facility] Sulfamethoxazole 800 MG / [facility] Trimethoprim 160 MG Oral [facility] Tablet
--- NOTE | 2019-11-21 23:33 | PDOC ---
History of Present Illness - General Chief Complaint: Injury Stated Complaint: FALL Time Seen by Provider: 11/21/19 22:52 - History of Present Illness Initial Comments: 11/21/19 23:30 88yo M PMH AFIB [facility]. Per RN at [facility] pt was put to bed after dinner. Then the bed alarm went off, and the staff found him on the floor. RN endorses pt denied falling on head, but written report in paperwork from facility states otherwise. Trauma exam: Awake and alert. not oriented. believes the year is 1937. A: protecting airway B: no labored or rapid breathing. C: AF per EKG and auscultation D: unknown if internal trauma. denied head, neck, or back pain. moves all 4 extremities. 11/21/19 23:35 Past History - Medical History Allergies/Adverse Reactions: Allergies Allergy/AdvReac Type Severity Reaction Status Date / Time No Known Allergies Allergy Verified 11/21/19 22:34 Home Medications: Ambulatory Orders Apixaban [Eliquis] 5 mg PO DAILY 03/13/17 Lisinopril [Zestril] 5 mg PO DAILY 03/13/17 Spironolactone [Aldactone -] 25 mg PO DAILY 03/13/17 Furosemide [Lasix] 20 mg PO DAILY 11/01/19 Ipratropium/Albuterol Sulfate [Iprat-Albut 0.5-3(2.5) mg/3 ml] 1 amp IH Q4H PRN 11/01/19 Levothyroxine [Synthroid -] 100 mcg PO DAILY 11/01/19 Pravastatin Sodium 10 mg PO HS 11/01/19 Budesonide/Formeterol Fumarate [SYMBICORT 80/4.5mcg -] 2 puff IH BID #1 inhaler 11/15/19 Colchicine [Colcrys] 0.6 mg PO DAILY #1 tab 11/15/19 Gabapentin [Neurontin -] 300 mg PO DAILY #30 capsule 11/15/19 Metoprolol Succinate [Toprol XL -] 50 mg PO DAILY #60 tab.sr.24h 11/15/19 Thiamine HCl [Vitamin B1 -] 250 mg PO DAILY #30 tablet 11/15/19 Anemia: No Asthma: No Cancer: Yes (THROAT) Cardiac Disorders: Yes (a.fib) CVA: Yes COPD: No CHF: No Dementia: No Diabetes: No GI Disorders: No Disorders: No HTN: Yes Hypercholesterolemia: Yes Liver Disease: No Seizures: No Thyroid Disease: Yes - Surgical History Abdominal Surgery: No Appendectomy: No Cardiac Surgery: Yes (card cath no stent) Cholecystectomy: No Lung Surgery: No Neurologic Surgery: No Orthopedic Surgery: Yes (L. Leg) - Immunization History Immunization Up to Date: Yes - Psycho-Social/Smoking History Smoking Status: No Smoking History: Never smoked Have you smoked in the past 12 months: No Number of Cigarettes Smoked Daily: 0 - Substance Abuse Hx (Audit-C & DAST Scrn) How often the patient has a drink containing alcohol: Never Score: In Men: 4 or > Positive; In Women: 3 or > Positive: 0 Screen Result (Pos requires Nsg. Audit-10AR): Negative In the last yr the pt used illegal drug/Rx for NonMed reason: No Score: Yes response is considered Positive: 0 Screen Result (Positive result requires Nsg. DAST-10): Negative Review of Systems - Review of Systems Able to Perform ROS?: No (confused at baseline) *Physical Exam - Vital Signs Last Vital Signs Temp Pulse Resp BP Pulse Ox 60 18 99/59 L 94 L 11/21/19 22:33 11/21/19 22:33 11/21/19 22:33 11/21/19 22:33 - Physical Exam General Appearance: Yes: Nourished, Disheveled. No: Apparent Distress HEENT: positive: EOMI (cataracts present), Normal Voice. negative: Pale Conjunctivae, Rhinorrhea Neck: positive: Trachea midline, Supple. negative: Tender, Rigidity, Tender lateral, Tender midline Respiratory/Chest: positive: Lungs Clear, Normal Breath Sounds. negative: Chest Tender, Respiratory Distress, Accessory Muscle Use Cardiovascular: positive: Regular Rate, Irregularly Irregular Gastrointestinal/Abdominal: positive: Soft, Distended Musculoskeletal: positive: Normal Inspection. negative: CVA Tenderness Extremity: positive: Normal Capillary Refill Integumentary: positive: Normal Color, Dry, Warm Neurologic: positive: Alert. negative: Fully Oriented, Normal Response Heart Score/ECG Review - History History: Slightly suspicious - Age Age: >/= 65 - [place]: Normal - P and VT Prominent R with upright T in V1 (true posterior VA): No - ECG Impressions Normal ECG: No Comment:: 11/21/19 23:42 Afib ED Treatment Course - LABORATORY CBC & Chemistry Diagram: 11/22/19 09:37 11/22/19 09:37 - RADIOLOGY Radiology Studies Ordered: Category Date Time Status ABDOMEN CT WITHOUT CONTRAST [CT] Stat CT Scan 11/21/19 23:[address] W/O CONTR [CT] Stat CT Scan 11/21/19 23:[address] WITHOUT CONTRAST [CT] Stat CT Scan 11/21/19 23:[address] WITHOUT CONTRAST [CT] Stat CT Scan 11/21/19 23:[address] WITHOUT CONTRAST [CT] Stat CT Scan 11/21/19 23:15 Ordered CXRPORT [CHEST X-RAY PORTABLE*] [RAD] Stat Radiology 11/21/19 23:04 Ordered Medical Decision Making - Medical Decision Making 11/21/19 23:36 88yo M confused at baseline w/ PMH AF, on AC, BIBEMS s/p unwitnessed fall. will knox-scan and put on collar. draw basic labs. Discharge - Discharge Information Problems reviewed: Yes Clinical Impression/Diagnosis: SAH (subarachnoid hemorrhage), Acute kidney injury - Follow up/Referral - Patient Discharge Instructions - Post Discharge Activity
--- NOTE | 2019-11-21 23:49 | PDOC ---
*Physical Exam - Vital Signs Last Vital Signs Temp Pulse Resp BP Pulse Ox 60 18 99/59 L 94 L 11/21/19 22:33 11/21/19 22:33 11/21/19 22:33 11/21/19 22:33 - Physical Exam Neck: positive: Trachea midline, Supple Respiratory/Chest: positive: Lungs Clear, Normal Breath Sounds Cardiovascular: positive: Regular Rhythm, Regular Rate Gastrointestinal/Abdominal: positive: Normal Bowel Sounds, Soft Extremity: positive: Normal Capillary Refill, Normal Inspection Neurologic: positive: scoop filler II-XII NML intact, Alert ED Treatment Course - LABORATORY CBC & Chemistry Diagram: 11/22/19 00:20 11/22/19 00:00 Medical Decision Making - Medical Decision Making 11/21/19 23:49 Received patient as signout 11/22/19 00:29 88yo M PMH AFIB confused at baseline from [facility] rehab BIBEMS s/p fall from bed. Per RN at [facility] pt was put to bed after dinner. Then the bed alarm went off, and the staff found him on the floor. RN endorses pt denied falling on head, but written report in paperwork from facility states otherwise. On eliquis for afib. CT Head: FINDINGS: Positive for acute subarachnoid blood scattered in the convexity sulci bilaterally. No mass-effect. No shift or herniation. Again note is made of involutional changes. Osseous structures are intact. 11/22/19 00:29 - Called primary contact, daughter Leah Gutierrez no answer - Called son, Mesfin Gutierrez JR, no answer 11/22/19 01:44 Dr. Rutherford spoke with Dr. Mai neurosurgery who said patient can be admitted here - Keppra 1500mg loading dose 11/22/19 01:45 Labs notable for: INR 1.67 Na 135 K 5.2 Creat 2.2 BUN 53 11/22/19 06:32 - Patient admitted to [facility] Discharge - Discharge Information Problems reviewed: Yes Clinical Impression/Diagnosis: SAH (subarachnoid hemorrhage), Acute kidney injury - Follow up/Referral - Patient Discharge Instructions - Post Discharge Activity
[2019-11-22 00:32] LABS: BASO % 0.3 % (0-2.0); HEMATOCRIT 41.1 % (35.4-49); HEMOGLOBIN 13.8 GM/dL (11.7-16.9); LYMPH % 13.9 % (8-40); MCH 33.3 pg (25.7-33.7); MCHC 33.6 g/dl (32.0-35.9); MEAN PLT VOLUME 9.6 fl (7.5-11.1); MONO % 8.2 % (3.8-10.2); NEUT % 76.6 % (42.8-82.8); PLATELET COUNT 271 K/MM3 (134-434); RBC 4.16 M/mm3 (4.00-5.60); RDW 12.6 % (11.9-15.9); WHITE BLOOD COUNT 11.5 K/mm3 (4.0-10.0)
[2019-11-22 00:39] LABS: INR 1.67 (0.83-1.09); PROTHROMBIN TIME (PATIENT) 19.8 SEC (9.7-13.0)
[2019-11-22 00:42] LABS: ACTIVATED PTT 32.1 SECONDS (25.2-36.5)
--- NOTE | 2019-11-22 00:58 | PDOC ---
*Physical Exam - Vital Signs Last Vital Signs Temp Pulse Resp BP Pulse Ox 60 18 99/59 L 94 L 11/21/19 22:33 11/21/19 22:33 11/21/19 22:33 11/21/19 22:33 ED Treatment Course - LABORATORY CBC & Chemistry Diagram: 11/22/19 00:20 11/22/19 00:00 - ADDITIONAL ORDERS Additional order review: Laboratory Results 11/22/19 00:20 PT with INR 19.80 H INR 1.67 H PTT (Actin FS) 32.1 11/22/19 00:20 RBC 4.16 MCV 99.0 H MCHC 33.6 RDW 12.6 MPV 9.6 Neutrophils % 76.6 Lymphocytes % 13.9 Monocytes % 8.2 Eosinophils % 1.0 Basophils % 0.3 Medical Decision Making - Medical Decision Making Discussed case with Dr. Cormier, neurosurgery SAH appears to be traumatic, rather than aneurysmal Patient to be admitted for further monitoring and evaluation by Dr. Cormier 11/22/19 00:57 Call to mishel's daughter who is listed in chart: Leah Gutierrez, No answer; left a voicemail requesting callback 11/22/19 01:04 Discharge - Discharge Information Problems reviewed: Yes Clinical Impression/Diagnosis: SAH (subarachnoid hemorrhage), Acute kidney injury - Follow up/Referral - Patient Discharge Instructions - Post Discharge Activity
[2019-11-22] MEDS ORDERED: levETIRAcetam 500 MG/5 ML INJECTION VIAL IVPB ONE ×2 (01:02→01:24)
[2019-11-22 01:03] LABS: ALBUMIN 3.6 g/dl (3.4-5.0); ALK PHOS 114 U/L (45-117); ANION GAP 5 MMOL/L (8-16); BILIRUBIN,TOTAL 0.9 mg/dL (0.2-1); CALCIUM 8.9 mg/dL (8.5-10.1); CHLORIDE 98 mmol/L (98-107); CO2 32 mmol/L (21-32); CREATININE 2.2 mg/dL (0.55-1.3); GLUCOSE,RANDOM 143 mg/dL (74-106); POTASSIUM 5.2 mmol/L (3.5-5.1); SGOT/AST 29 U/L (15-37); SGPT/ALT 37 U/L (13-61); SODIUM 135 mmol/L (136-145); TOT PROT 7.7 g/dl (6.4-8.2)
--- NOTE | 2019-11-22 01:39 | PDOC ---
Attending Attestation - Resident Resident Name: TrinaLevi Rhianna - ED Attending Attestation I have performed the following: I have examined & evaluated the patient, The case was reviewed & discussed with the resident, I agree w/resident's findings & plan - HPI HPI: 11/22/19 01:46 see resident hpi - Physicial Exam PE: 11/22/19 01:46 see resident exam - Medical Decision Making 11/22/19 01:46 88-year-old male found on the ground by staff at housing facility with baseline confusion and recent admission for urinary tract infection CT scan of the brain reveals a traumatic subarachnoid hemorrhage in a patient currently anticoagulated on Eliquis Case discussed with neurosurgery who recommends admission with no additional intervention needed at this time Patient admitted to medical service, neurology floor He remains confused but alert and nonfocal Discharge - Discharge Information Problems reviewed: Yes Clinical Impression/Diagnosis: SAH (subarachnoid hemorrhage), Acute kidney injury - Follow up/Referral Referrals: Tez Adams MD [Primary Care Provider] - - Patient Discharge Instructions - Post Discharge Activity
--- NOTE | 2019-11-22 01:41 | PN ---
Teaching Attending Note Name of Resident: Addie Rios ATTENDING PHYSICIAN STATEMENT I saw and evaluated the patient. I reviewed the resident's note and discussed the case with the resident. I agree with the resident's findings and plan as documented. 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 Per RN at [facility] patient was put to bed after dinner. Then the bed alarm went off, and the staff found him on the floor. The Nurse reports that patient denied falling on head, but written report in paperwork from facility states otherwise. On arrival, he was alert, but not oriented. Denied pain and was moving all extremities. Patient denies chest pain, shortness of breath, abdominal pain, headache, palpitations, dizziness, fever, chills, nausea, vomiting, diarrhea, constipation, dysuria, frequency, urgency, melena, hematochezia or hematuria. Denies alcohol, tobacco or illicit drug use. No sick contacts or recent travels. Family history DVT in father, breast cancer in mother and daughter has HTN. OBJECTIVE: Alert but confused Vital Signs Period Temp Pulse Resp BP Sys/Yañez Pulse Ox Last 24 Hr 98.1 F 60-99 18-18 99-117/59-79 94-98 HEENT: No Jaundice, eye redness or discharge, PERRLA. Normocephalic, atraumatic. External ears are normal and hearing is grossly intact. No nasal discharge. Neck: Supple, nontender. No palpable adenopathy or thyromegaly. No JVD Chest: Good effort. Clear to auscultation and percussion. Heart: Regular. No S3, rub or murmur Abdomen: Not distended, soft, nontender and no HSM. No rebound or guarding. Normal bowel sounds. Ext: Peripheral pulses intact. No leg edema.Left foot drop. Skin: Warm and dry. No petechiae, rash or ecchymosis. Neuro: Alert. Confused. Oriented to person. Sensation grossly intact in all four extremities and DTR are symmetric. Psych: Unable to assess. Home Medications Medication Instructions Recorded Apixaban [Eliquis] 5 mg PO DAILY 03/13/17 Lisinopril [Zestril] 5 mg PO DAILY 03/13/17 Spironolactone [Aldactone -] 25 mg PO DAILY 03/13/17 Furosemide [Lasix] 20 mg PO DAILY 11/01/19 Ipratropium/Albuterol Sulfate 1 amp IH Q4H PRN 11/01/19 [Iprat-Albut 0.5-3(2.5) mg/3 ml] Levothyroxine [Synthroid -] 100 mcg PO DAILY 11/01/19 Pravastatin Sodium 10 mg PO HS 11/01/19 Budesonide/Formeterol Fumarate 2 puff IH BID #1 inhaler 11/15/19 [SYMBICORT 80/4.5mcg -] Colchicine [Colcrys] 0.6 mg PO DAILY #1 tab 11/15/19 Gabapentin [Neurontin -] 300 mg PO DAILY #30 capsule 11/15/19 Metoprolol Succinate [Toprol XL -] 50 mg PO DAILY #60 tab.sr.24h 11/15/19 Thiamine HCl [Vitamin B1 -] 250 mg PO DAILY #30 tablet 11/15/19 Abnormal Lab Results 11/22/19 11/22/19 11/22/19 00:00 00:20 00:20 WBC 11.5 H MCV 99.0 H Absolute Neuts (auto) 8.8 H PT with INR 19.80 H INR 1.67 H Sodium 135 L Potassium 5.2 H Anion Gap 5 L BUN 53.0 H Creatinine 2.2 H Random Glucose 143 H Current Medications Generic Name Dose Route Start Last Admin Trade Name Freq PRN Reason Stop Dose Admin Sodium Chloride 1,000 mls @ 50 mls/hr 11/22/19 05:45 Normal Saline - IV 11/23/19 01:44 [facility] ASSESS[facility] AND PLAN: 1. Fall/Subarachnoid hemorrhage - CT scan of head report - "Positive for acute subarachnoid blood scattered in the convexity sulci bilaterally. No mass-effect. No shift or herniation. Again note is made of involutional changes. Osseous structures are intact." ER staff spoke with Dr. Mai - Neurosurgeon, who said patient can be admitted to [facility]. Patient got Keppra 1500mg loading dose. No acute abnormality on CXR. C-spine CT did not show any fracture or subluxation. CT scan of abdomen/pelvis and CT chest didnot show any acute abnormality. EKG shows Afib at 78/minute and QTc 437 with anterior infarct of undetermined age. Not significantly changed compared to prior EKG. Initial troponin is negative. Mild leukocytosis may be due to stress - will monitor. Mild hyperkalemia and hyponatremia likely partly due to hyperglycemia/CASIE. Will hydrate gently, limit free water intake and correct hyperglycemia. Will admit to telemetry, continue Keppra QD, hold Eliquis, get ECHO, TSH, carotid doppler, do speech and swallow evaluation, neurochecks and implement fall/aspiration/seizure precautions. Consult PT/Neurology/Cardiology. Repeat head CT tomorrow. Viral testing for COVID-19 ordered and patient placed on airbo rne, droplet and contact isolation. Will continue comprehensive care for all of patients comorbid conditions including Synthroid for hypothyroidism and Duoneb PRN for COPD. 2. CASIE Cause unclear. Will get kidney sonogram, hydrate gently, monitor urine output and consult Nephrology. Avoid nephrotoxic agents such as NSAIDS, aminoglycosides, contrast dyes and certain Alternative medicine products. 3. Hypertension Will hold antihypertensive drugs for low BP. Restart suitable outpatient antihypertensive drugs when clinically appropriate. Subsequently, will revise regimen to ensure [id number] excellent BP control. Patient counseled on the injurious effects of uncontrolled hypertension. Nonpharmacologic measures to control hypertension like weight loss, salt restriction and exercise stressed. Importance of adherence to treatment regimen and attainment of normotension emphasized. 4. DVT prophylaxis - SCD. 5. Advance directives - Full code
[2019-11-22] MEDS ORDERED: SODIUM CHLORIDE 0.9% 500 ML INFUS.BAG IV ONE (01:52)
[2019-11-22 02:11] LABS: URINE APPEARANCE CLEAR; URINE BILIRUBIN NEGATIVE (NEGATIVE); URINE COLOR YELLOW; URINE GLUCOSE (UA) NEGATIVE (NEGATIVE); URINE KETONE NEGATIVE (NEGATIVE); URINE LEUK ESTERASE NEGATIVE (NEGATIVE); URINE NITRITE NEGATIVE (NEGATIVE); URINE PROTEIN NEGATIVE (NEGATIVE); URINE UROBILINOGEN 0.2 mg/dL (0.2-1.0)
--- OUTSIDE RECORDS SUMMARY | 2019-11-22 02:33 | XMS ---
:1930 Author Organization [facility] Care Team Providers Name Role Phone ED STAFF PHYSICIANJULISA Unavailable Unavailable KEMAR GRIGGS Unavailable Unavailable GEORGI VASQUEZ Unavailable Unavailable Billy Stephenson Unavailable [phone] ED STAFF PHYSICIAN, STAFF Unavailable Unavailable ED STAFF PHYSICIANSHAREE Unavailable Unavailable Aditya Damon DPM Unavailable Unavailable Rashawn Damon DPM Unavailable Unavailable Rashawn Damon DPM Unavailable Unavailable Hylton Unavailable [phone] ALYSHA Moreno Unavailable Unavailable Re-disclosure Warning The [...] is protected by Article 27-F of the [facility] Public Health law. If you continue you may haveaccess to information: Regarding HIV / AIDS; Provided by facilities licensed or operated by the [facility] Office of Mental Health; or Provided by the [facility] Office for People With Developmental Disabilities. If such information is present, then the following [facility] mandated warning applies: This information has been [...] law may result in a fine or retirement sentence or both. A general authorization for the release of medical or other information is NOT sufficient authorization for further disclosure. Allergies and Adverse Reactions Type Description Substance Reaction Status Data Source(s ) Propensity to Propensity to Propensity to NEXTG EN ([facility] adverse reactions adverse reactions adverse reactions [facility] (disorder) (disorder) (disorder) Center) Encounters Encounter Providers Location Date Indications Data Source(s ) Outpatient 08/31/2019 [facility] 09:58:00 Medical Center AM EDT Outpatient 08/31/2019 [facility] 12:00:00 Medical Center AM EDT Outpatient 08/23/2019 [facility] 03:35:00 Medical Center PM EDT Outpatient Attender: LACI Donald 08/23/2019 [facility] ALYSHA AGUERO 10:27:00 Medical Cent er PAdmitter: AM EDT LACI AGUERO PReferrer: LACI AGUERO P OutpatientOFFICE/ Attender: [facility] 08/23/2019 LILLYGEN ([facility] OUTPATIENT VISIT, Dolores Stephenson 10:27:00 [facility] EST AM EDT - Center) 08/23/2019 10:27:00 AM EDT Outpatient 08/23/2019 [facility] 12:00:00 Medical Center AM EDT Outpatient 04/06/2019 [facility] 02:22:00 Medical Center PM EST Outpatient 04/06/2019 [facility] 12:00:00 Medical Center AM EST Outpatient Attender: GEORGI Donald 04/05/2019 [facility] ephs DENISAAdmitter: 12:56:00 Medical C enter GEORGI PM EST DENISAReferrer: GEORGI PEDRO OutpatientOFFICE/ Attender: [facility] 04/05/2019 [facility] ([facility] OUTPATIENT VISIT, Dolores Stephenson 12:56:00 [facility] EST PM EST - Center) 04/05/2019 12:56:00 PM EST Outpatient 04/05/2019 [facility] 12:41:00 Medical Center PM EST Outpatient 04/05/2019 [facility] 12:00:00 Medical Center AM EST Outpatient Attender: Aditya Donald 03/23/2019 [facility] 01:42:00 Medical Center DPMAdmitter: PM EST Aditya Damon DPMReferrer: Aditya Damon DPM OutpatientOFFICE/ Attender: [facility] 03/23/2019 [facility] ([facility] OUTPATIENT VISIT, Dolores Stephenson 01:42:00 [facility] PM EST - Center) 03/23/2019 01:42:00 PM EST Outpatient 03/23/2019 [facility] 11:19:00 Medical Center AM EST Outpatient 03/23/2019 [facility] 12:00:00 Medical Center AM EST Emergency Attender: KEMAR Donald 03/21/2019 [facility] ryan MARK REINOSO 10:25:[address] SAttender: AM EST - JULISA ED STAFF 03/21/2019 [facility]YS[facility]ende 03:30:00 r: STAFF ED PM EST STAFF PHYSICIANAdmitte r: KEMAR Hoffmann Patient discharged. Outpatient 03/16/2019 [facility] 10:34:00 AM EST Medical C enter Outpatient 03/16/2019 [facility] 10:30:00 AM EST Medical C enter Outpatient 03/16/2019 [facility] 12:00:00 AM EST Medical C enter Outpatient Attender: LACI Donald 03/08/2019 [facility] ALYSHA AGUERO 09:54:00 AM EST Medical Center PAdmitter: LACI AGUERO PReferrer: LACI Moreno OutpatientOFFICE/O Attender: [facility] 03/08/2019 [facility] ([facility] UTPATIENT VISIT, Dolores Stephenson 09:54:00 AM EST - [facility] EST 03/08/2019 Medical 09:54:00 AM EST Center) Outpatient 03/08/2019 [facility] 09:21:00 AM EST Medical C enter Outpatient 03/08/2019 [facility] 12:00:00 AM EST Medical C enter Outpatient Attender: LACI Donald 02/22/2019 [facility] ALYSHA AGUERO 09:56:00 AM EST Medical Center PAdmitter: LACI AGUERO PReferrer: LACI AGUERO P OutpatientOFFICE/O Attender: [facility] 02/22/2019 NEXTGEN ([facility] VISIT, Dolores Stephenson 09:56:00 AM [facility] EST 02/22/2019 Medical 09:56:00 AM EST Center) Outpatient 02/22/2019 [facility] 09:52:00 AM EST Medical C enter Outpatient 02/22/2019 [facility] 12:00:00 AM EST Medical C enter Emergency Attender: SHAREE Donald 01/14/2019 [facility] ED STAFF 08:32:00 AM EST - Medical Center PHYSICIANAttender 01/14/2019 : STAFF ED STAFF 01:54:00 PM EST PHYSICIANAdmitter : SHAREE ED STAFF PHYSICIAN Patient discharged. Outpatient H 08/17/2018 [facility] 10:49:00 AM EDT Medical C enter OutpatientOFFICE/OU Attender: [facility] 08/17/2018 NEXTGEN ([facility] VISIT, [facility] 10:49:00 AM EDT [facility] 08/17/2018 Julian) 10:49:00 AM EDT Outpatient 08/17/2018 [facility] 09:27:00 AM EDT Medical C enter Outpatient 08/17/2018 [facility] 12:00:00 AM EDT Medical C enter Attender: [facility] 12/02/2017 [facility] Julian[facility] 01:01:00 PM EDT Attender: [facility] 08/20/2017 NEXT GEN ([facility] Julian) 10:21:00 AM EDT Attender: [facility] 04/16/2017 NEXT [facility] ([facility] 01:41:00 PM [facility] 04/16/2017 Julian) 01:41:00 PM EST Attender: [facility] 01/01/2017 NEXT GEN ([facility] 09:42:00 AM EDT [facility] 01/01/2017 Center) 09:42:00 AM EDT Attender: [facility] 10/14/2016 NEXT GEN ([facility] 01:59:00 PM EDT [facility] 10/14/2016 Julian) 01:59:00 PM EDT Attender: [facility] 07/15/2016 NEXT GEN ([facility] 01:20:00 PM [facility] 07/15/2016 Julian) 01:20:00 PM EDT Attender: [facility] 04/29/2016 NEXT GEN ([facility] 01:55:00 PM EST [facility] 04/29/2016 Julian) 01:55:00 PM EST Attender: [facility] 09/11/2015 NEXT GEN ([facility] 09:31:00 AM T [facility] 09/11/2015 Julian) 09:31:00 AM EDT Medications Medication Brand Start Product Dose Route Administrative Pharmacy [facility] Indications Reaction Description Data Name [...] l capsaicin topica EDT day to the nter) 0.025 % l affected topical cream area(s) cream apixaban complet Eliquis [facility] lisinopril complet [facility] 5 mg Tablet [facility] Julian levothyroxi complet [facility] ne 100 mcg [facility] Tablet Medical [place] spironolact complet [facility] one 25 mg [facility] Tablet Medical [facility] ipratropium complet [facility] -albuterol [facility] 0.5 mg-3 mg Medical (2.5 mg Center base)/3 mL Solution for Nebulizatio n pravastatin complet [facility] 10 mg [facility] Tablet Medical [facility] furosemide complet [facility] 20 mg [facility] Tablet Medical Julian metoprolol complet [facility] succinate [facility] 25 mg Medical Tablet Center Extended Release 24 hr Sulfamethox sulfam 1 complet Emiliano nt azole 800 [facility] / zole-t Medical Trimethopri rimeth Center m 160 MG oprim Oral Tablet 800 sulfamethox mg-160 azole-trime mg thoprim 800 Tablet mg-160 mg , Tablet, Ordere Ordered By: d By: sonal Chappell MDDirection Michael, s: 1 tablet MDDire oral twice ctions a day : 1 tablet oral twice a day Insurance Providers Payer name Policy type Policy ID Covered Covered green party's Policy P melissa / Coverage green party ID relationship to Raym[employer] Inf ormation type raymundo MEDICAID [id number] SP [id number] [place] [id number] HEALTHCARE (MEDICARE) [place] MEDICARE [id number] SP [id number] [place] [id number] self [id number] HEALTHCARE MCARE OPD W [id number] 01 [id number] [facility] [id number] [facility] OPD Problems, Conditions, and Diagnoses Code Display Name Description Problem Type Effective Data Sour ce(s) Dates M79.671 Pain in right foot PAIN IN RIGHT FOOT Diagnosis 0 [facility] 10:27:00 AM Medical [facility] EDT M79.672 Pain in left foot PAIN IN LEFT FOOT Diagnosis 08/23/2019 [facility] 10:27:00 AM Medical [facility] EDT 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 NAILS 10:27:00 AM Medical Center EDT M10.9 Gout, unspecified GOUT, UNSPECIFIED Diagnosis 04/05/2019 [facility] 12:56:00 PM Medical [facility] EST 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 04/05/2019 [facility] vascular disease, VASCULAR DISEASE, 12:56:00 PM Medical Center unspecified UNSPECIFIED EST M19.071 Primary PRIMARY Diagnosis 03/23/2019 [facility] osteoarthritis, OSTEOARTHRITIS, 01:42:00 PM Med ical Center right ankle and RIGHT ANKLE AND EST foot FOOT I10 Essential ESSENTIAL Diagnosis 03/21/2019 [facility] (primary) (PRIMARY) 10:25:00 AM Medical [facility] hypertension HYPERTENSION EST I50.9 Heart failure, [...] Date Indications Data Source(s) OFFICE/OUTPATIENT 08/23/2019 VIOLA ([facility] VISIT, EST 12:00:00 AM EDT - Medical Ce nter) 08/23/2019 12:00:00 AM EDT DEBRIDE NAIL, 6 OR 08/23/2019 NEXTGEN ( [facility] CHANDRA 12:00:00 AM EDT - Medical Ce nter) 08/23/2019 12:00:00 AM EDT OFFICE/OUTPATIENT 04/05/2019 NEXTGEN (S adal Garcias VISIT, EST 12:00:00 AM EST - Medical Ce nter) 04/05/2019 12:00:00 AM EST OFFICE/OUTPATIENT 03/23/2019 NEXTGEN ([facility] adal [facility] VISIT, EST 12:00:00 AM EST - Medical Ce nter) 03/23/2019 12:00:00 AM EST OFFICE/OUTPATIENT 03/08/2019 NEXTGEN ([facility] ad[facility] VISIT, EST 12:00:00 AM EST - Medical Ce nter) 03/08/2019 12:00:00 AM EST OFFICE/OUTPATIENT 02/22/2019 NEXTGEN ([facility] ad[facility] VISIT, EST 12:00:00 AM EST - Medical Ce nter) 02/22/2019 12:00:00 AM EST DEBRIDE NAIL, 1-5 02/22/2019 NEXTGEN (S adal [facility] 12:00:00 AM EST - Medical Ce nter) 02/22/2019 12:00:00 AM EST OFFICE/OUTPATIENT 08/17/2018 NEXTGEN (S adal Garcias VISIT, EST 12:00:00 AM EDT - Medical Ce nter) 08/17/2018 12:00:00 AM EDT DEBRIDE NAIL, 6 OR 08/17/2018 NEXTGEN ( [facility] 12:00:00 AM EDT - Medical Ce nter) 08/17/2018 12:00:00 AM EDT Results ID Date Data Source [id number] 11/17/2019 12:20:00 PM EDT [facility] Name Value Range Interpretation Description Data Sup porting Code Source(s) Document(s ) SARS [facility] coronavirus 2 RNA This lab was ordered by [facility] and reported by [facility]. ID Date Data Source [id number] 11/14/2019 02:30:00 PM EDT [facility] Name Value Range Interpretation Description Data Sup porting Code Source(s) Document(s ) SARS [facility] coronavirus 2 RNA This lab was ordered by [facility] and reported by [facility]. ID Date Data Source [id number] 11/10/2019 02:30:00 PM EDT [facility] Name Value Range Interpretation Description Data Sup porting Code Source(s) Document(s ) SARS [facility] coronavirus 2 RNA This lab was ordered by [facility] and reported by [facility]. ID Date Data Source [id number] 11/04/2019 05:30:00 AM EDT [facility] Name Value Range Interpretation Description Data Sup porting Code Source(s) Document(s ) SARS [facility] coronavirus 2 RNA This lab was ordered by [facility] and reported by [facility]. ID Date Data Source [id number] 11/01/2019 09:30:00 AM EDT [facility] Name Value Range Interpretation Description Data Sup porting Code Source(s) Document(s ) SARS [facility] coronavirus 2 RNA This lab was ordered by [facility] and reported by [facility]. ID Date Data Source Liver 03/21/2019 11:50:00 AM [facility] Profile.[id number] Name Value Range Interpretation Description Data Sup [...] s"> (3.5-5.0 G/DL)</content> ID Date Data Source LIPID.[id number] 03/21/2019 11:50:00 AM EST [facility] Name Value Range Interpretation Description Data Sup porting Code Source(s) Document(s ) Triglyceride < 150 <content Saint [Mass/volume] in styleCode="Irene Juventino Serum or Plasma d">Triglycerid Medical es Center </content>78 MG/DL<content styleCode="Flores lics"> (< 150 MG/DL)</conten t> Cholesterol -<200 <content [facility] [Mass/volume] in styleCode="Irene Juventino Serum or Plasma d">Cholesterol Medical </content>145 Center MG/DL<content styleCode="Flores lics"> (-<200 MG/DL)</conten t> UNK < 100 <content Saint styleCode="Irene Juventino d">LDL-Cholest [facility] soco Center </content>86 MG/DL<content styleCode="Flores lics"> (< 100 MG/DL)</conten t> UNK > 60 Below low normal <content Saint styleCode="Irene Juventino d">HDL- Medical Cholesterol Center </content>43 MG/DL L<content styleCode="Flores lics"> (> 60 MG/DL)</conten t> ID Date Data Source HematologyRou.[id number] 03/21/2019 11:50:00 AM EST Emiliano nt [facility] 0500 Name Value Range Interpretation Description Data [...] (0.0 KCUMM)</content > ID Date Data Source GFR(Creatinine).[id number] 03/21/2019 11:50:00 AM EST Emiliano [facility] 0-0500 Name Value Range Interpretation Code Description Data Kay rce(s) Supporting Document(s ) UNK > 60 <content [facility] styleCode="Bold"> Medical Cent er EGFR </content>67 GFR<content styleCode="Italic s"> (> 60 GFR)</content> ID Date Data Source Coagulation 03/21/2019 11:50:00 AM [facility] ical Center Rout.[id number] EST Name Value Range Interpretation Description Data Sup porting Code Source(s) Document(s ) UNK 9.0-13.0 Above high normal <content [facility] styleCode="Bold" Juventino >Protime Medical </content>14.3 Center SEC [...] cs"> (25.1-36.5 SEC)</content> ID Date Data Source CHMROUTINECCDA.[id number] 03/21/2019 11:50:00 AM EST Emiliano [facility] -0500 Name Value Range Interpretation Description Data [...] (2.5-6.2 MG/DL)</conten t> ID Date Data Source CardiacMarkers.[id number] 03/21/2019 11:50:00 AM EST Emiliano alexandra [facility] -0500 Name Value Range Interpretation Description Data Sup porting Code Source(s) Document(s ) Troponin < 0.034 <content Saint I.cardiac styleCode="Bold [facility] [Mass/volume ">Troponin I Medical ] in Serum </content>0.017 Center or Plasma NG/ML<content styleCode="Ital ics"> (< 0.034 NG/ML)</content > ID Date Data Source [facility].[id number] 03/21/2019 11:50:00 AM EST [facility] Name Value Range Interpretation Description Data Sup porting Code Source(s) Document(s ) Sodium 137-145 <content Saint [Moles/volume] in styleCode="Bold"> [facility] Serum or Plasma Sodium Medical </content>139 Center MEQ/L<content styleCode="Italic s"> (137-145 MEQ/L)</content> Carbon dioxide, 22-30 <content [facility] total styleCode="Bold"> [facility] [Moles/volume] in Carbon Dioxide Medical Serum or Plasma </content>29 Center MEQ/L<content styleCode="Italic s"> (22-30 MEQ/L)</content> Potassium 3.5-5.3 <content [facility] [Moles/volume] in styleCode="Bold"> [facility]s Serum or Plasma Potassium Medical </content>4.5 Center MEQ/L<content styleCode="Italic s"> (3.5-5.3 MEQ/L)</content> Chloride 98-107 <content [facility] [Moles/volume] in styleCode="Bold"> [facility] Serum or Plasma Chloride Medical </content>100 Center [...] s"> (3.5-5.0 G/DL)</content> ID Date Data Source CardiacMarkers.[id number] 01/14/2019 12:05:00 PM MIKEY [facility] -0500 Name Value Range Interpretation Description Data Sup porting Code Source(s) Document(s ) Troponin < 0.034 <content [facility] I.cardiac styleCode="Bold [facility] [Mass/volume ">Troponin I Medical ] in Serum </content>0.013 Center or Plasma NG/ML<content styleCode="Ital ics"> (< 0.034 NG/ML)</content > ID Date Data Source Urinalysis.[id number] 01/14/2019 10:46:00 AM EST [facility] 0 Name Value Range Interpretation Description Data [...] lics"> (CLEAR )</content> UNK NEGATIVE <content [facility] styleCode="Irene Juventino d">Urine Medical Bilirubin Center </content>NEGA TIVE <content styleCode="Flores lics"> (NEGATIVE )</content> Hemoglobin NEGATIVE <content [facility] [Presence] in styleCode="Irene Garicas Urine by Test d">Urine Blood Medical strip </content>NEGA Center TIVE <content styleCode="Flores lics"> (NEGATIVE )</content> pH of Urine by 4.5-8.0 <content Saint Test strip styleCode="Irene Garcias d">Urine pH Medical </content>6.0 Center <content styleCode="Flores lics"> (4.5-8.0 )</content> Specific 1.015-1.02 <content Saint gravity of 5 styleCode="Irene Garcias Urine by Test d">Urine Medical strip Specific Center Vici </content>1.01 5 <content styleCode="Flores lics"> (1.015-1.025 )</content> Protein NEGATIVE <content [facility] [Mass/volume] styleCode="Irene Garcias in Urine by d">Urine Medical Test strip Protein Center </content>NEGA TIVE MG/DL<content styleCode="Flores lics"> (NEGATIVE MG/DL)</conten t> Urobilinogen 0.2-1.0 <content [facility] [Units/volume] styleCode="Irene Juventino in Urine by d">Urine Medical Test strip Urobilinogen Center </content>0.2 MG/DL<content styleCode="Flores lics"> (0.2-1.0 MG/DL)</conten t> Nitrite NEGATIVE <content Saint [Presence] in styleCode="Irene Juventino Urine by Test d">Urine Medical strip Nitrite Center </content>POSI TIVE <content styleCode="Flores lics"> (NEGATIVE )</content> UNK 0-3 <content Saint styleCode="Irene Garcias d">Urine White Medical Blood Cell Center </content>10 - 20 HPF<content styleCode="Flores lics"> (0-3 HPF)</content> Leukocyte NEGATIVE <content Saint esterase styleCode="[facility] [Presence] in d">Urine Medical Urine by Test Leukocyte Center strip </content>MODE RATE <content styleCode="Flores lics"> (NEGATIVE )</content> UNK 0-3 <content Saint styleCode="Irene Juventino d">Urine Red Medical Blood Cell Center </content>0-3 HPF<content styleCode="Flores lics"> (0-3 HPF)</content> UNK NEGATIVE <content Saint styleCode="Irene Garcias d">Urine Medical Bacteria Center </content>FEW HPF<content styleCode="Flores lics"> (NEGATIVE HPF)</content> ID Date Data Source Microbiology.[id number] 01/14/2019 10:46:00 AM EST Emiliano [facility] 500 Name Value Range Interpretation Code Description Data Kay rce(s) Supporting Document(s ) UNK <item><content [facility] styleCode="Bold">Cul Medical C enter ture Report </content>
<tabl e><tbody><tr><td>Spe donald Number:</td><td>[id number]</td></tr><tr>< td>Sample Collection Date/Time: </td><td>01/14/2019 10:46 AM</td></tr><tr><td> Specimen Source:</td><td>URIN E</td></tr><tr><td>U rine Culture:</td><td>Col lection Plate Date: 01/14/2019 10:50 </td></tr><tr><td>Cu lture Status:</td><td>Prel iminary </td></tr><tr><td>Cu lture Report:</td><td>Cult ure in progress </td></tr></tbody></ table></item> UNK <item><content [facility] styleCode="Bold">Cul Medical C enter ture Status </content>
<tabl e><tbody><tr><td>Spe cimen Number:</td><td>[id number]</td></tr><tr>< td>Sample Collection Date/Time: </td><td>01/14/2019 10:46 AM</td></tr><tr><td> Specimen [...] d></td><td></td><td> </td></tr></tbody></ table></item> ID Date Data Source BMP.[id number] 01/14/2019 10:05:00 AM [facility] Name Value Range Interpretation Description Data Sup porting Code Source(s) Document(s ) Potassium 3.5-5.3 <content [facility] [Moles/volume styleCode="Irene Juventino ] in Serum or d">Potassium Medical Plasma </content>4.6 Center MEQ/L<content styleCode="Flores lics"> (3.5-5.3 MEQ/L)</conten t> ID Date Data Source Liver 01/14/2019 09:36:00 AM [facility] Profile.[id number] Name Value Range Interpretation Description Data Sup [...] s"> (3.5-5.0 G/DL)</content> ID Date Data Source HematologyRou.[id number] 01/14/2019 09:36:00 AM MIKEY Cummings [facility] 0500 Name Value Range Interpretation Description Data [...] Juventino Fraction] of ">Hematocrit Medical Blood by </content>34.1 [...] (0.0 KCUMM)</content > UNK < 1 <content styleCode="Bold Juventino ">Immature Medical Granulocyte Center Ratio </content>0.8 %<content styleCode="Ital ics"> (< 1 %)</content> ID Date Data Source GFR(Creatinine).[id number] 01/14/2019 09:36:00 AM MIKEY Emiliano [facility] 0-0500 Name Value Range Interpretation Code Description Data Kay rce(s) Supporting Document(s ) UNK > 60 <content [facility] styleCode="Bold"> Medical Cent er EGFR </content>75 GFR<content styleCode="Italic s"> (> 60 GFR)</content> ID Date Data Source Coagulation 01/14/2019 09:36:00 AM [facility] Rout.[id number] EST Name Value Range Interpretation Description Data [...] cs"> (25.1-36.5 SEC)</content> ID Date Data Source CHMROUTINECCDA.[id number] 01/14/2019 09:36:00 AM EST Emiliano [facility] -0500 Name Value Range Interpretation Description Data [...] (6.3-8.2 G/DL)</content > ID Date Data Source CardiacMarkers.[id number] 01/14/2019 09:36:00 AM MIKEY alexandra [facility] -0500 Name Value Range Interpretation Description Data Sup porting Code Source(s) Document(s ) Troponin < 0.034 <content Saint I.cardiac styleCode="Bold Juventino [Mass/volume ">Troponin I Medical ] in Serum </content>0.015 Center or Plasma NG/ML<content styleCode="Ital ics"> (< 0.034 NG/ML)</content > ID Date Data Source [id number] 01/14/2019 09:36:00 AM EST [facility] Name Value Range Interpretation Description Data Sup [...] ever completed Unknown if ever Tamanna delfino Jauregui smoked smoked Medical Center Vital Signs ID Date Data Source UNK Name Value Range Interpretation Code Description Data Source(s) Respiratory rate 20 /min 20 /min NEXTGEN ([facility]) Body temperature 37.00 Brit 37.00 Brit NEXTGEN ([facility]) Heart rate 76 /min 76 /min NEXTGEN ([facility]) Diastolic blood 89 mm[Hg] 89 mm[Hg] NEXTGEN ( [facility]) Systolic blood 131 mm[Hg] 131 mm[Hg] [facility] Respiratory rate 16 /min 16 /min NEXTGEN ([facility]) Body temperature 37.00 Brit 37.00 Brit [facility]) Respiratory rate 18 /min 18 /min [facility] ([facility]) Body temperature 37.00 Brit 37.00 Brit [facility] ([facility]) Heart rate 65 /min 65 /min [facility] ([facility]) Diastolic blood 63 mm[Hg] 63 mm[Hg] [facility] ( [facility]) Systolic blood 108 mm[Hg] 108 mm[Hg] [facility]) Body temperature 36.723246 36.604637 [facility] Respiratory rate 18 /min 18 /min [facility] Oxygen saturation 98 % 98 % [facility] in Arterial [facility] by Pulse oximetry Heart rate 58 /min 58 /min [facility] Diastolic blood 68 mm[Hg] 68 mm[Hg] [facility] Systolic blood 128 mm[Hg] 128 mm[Hg] [facility] Body weight 98.174596 kg 98.822667 kg [facility] Body temperature 36.453732 36.743555 [facility] Respiratory rate 18 /min 18 /min [facility] Oxygen saturation 97 % 97 % [facility] in Arterial [facility] by Pulse oximetry Heart rate 61 /min 61 /min [facility] Body height 180.998998 180.196144 cm [facility] Diastolic blood 80 mm[Hg] 80 mm[Hg] [facility] Systolic blood 141 mm[Hg] 141 mm[Hg] [facility] Body mass index 30.2 kg/m2 30.2 kg/m2 [facility] (BMI) [Ratio] Medical [facility] ter Oxygen saturation 97 % 97 % [facility] ([facility] Arterial blood [facility] by Pulse oximetry Center) Respiratory rate 19 /min 19 /min [facility] ([facility]) Body temperature 36.50 Brit 36.50 Brit [facility] ([facility]) Heart rate 96 /min 96 /min [facility] ([facility]) Diastolic blood 84 mm[Hg] 84 mm[Hg] [facility] ( [facility]) Systolic blood 170 mm[Hg] 170 mm[Hg] [facility] ([facility] pressure [facility]) Body weight 101.151 kg 101.151 kg [facility] ([facility]) Respiratory rate 20 /min 20 /min [facility] ([facility]) Body temperature 36.44 Brit 36.44 Brit [facility] ([facility]) Heart rate 79 /min 79 /min [facility] ([facility]) Diastolic blood 62 mm[Hg] 62 mm[Hg] [facility] ( [facility]) Systolic blood 134 mm[Hg] 134 mm[Hg] [facility] ([facility]) Body temperature 36.833668 36.359969 [facility] Respiratory rate 18 /min 18 /min [facility] Oxygen saturation 98 % 98 % [facility] Ar[facility] blood [facility] by Pulse oximetry Heart rate 71 /min 71 /min [facility] Diastolic blood 87 mm[Hg] 87 mm[Hg] [facility] Systolic blood 153 mm[Hg] 153 mm[Hg] [facility] Medical [facility] Body weight 98.475123 kg 98.719456 kg [facility] Body temperature 36.429598 36.046889 [facility] Respiratory rate 18 /min 18 /min [facility] Oxygen saturation 98 % 98 % [facility] Arterial blood [facility] by Pulse oximetry Heart rate 71 /min 71 /min [facility] Diastolic blood 86 mm[Hg] 86 mm[Hg] [facility] Systolic blood 143 mm[Hg] 143 mm[Hg] [facility] Respiratory rate 20 /min 20 /min [facility] ([facility]) Body temperature 37.06 Brit 37.06 Brit [facility] ([facility]) Heart rate 72 /min 72 /min [facility] ([facility]) Diastolic blood 65 mm[Hg] 65 mm[Hg] [facility] ( [facility]) Systolic blood 137 mm[Hg] 137 mm[Hg] [facility] ([facility]) Patient Treatment Plan of Care Planned Activity Planned Date Details Description Data Source (s) Ibuprofen 400 MG Oral 04/05/2019 NEXTGE N ([facility] Tablet 12:00:00 AM [facility]) ammonium lactate 120 MG/ML 03/08/2019 N EXTGEN ([facility] Topical Lotion [Amlactin] 12:00:00 AM [facility]) Hydrocortisone 5 MG/ML 02/23/2019 NEXTG EN ([facility] Topical Cream 12:00:00 AM [facility]) Fluconazole 150 MG Oral 08/17/2018 NEXT GEN ([facility] Tablet 12:00:00 AM [facility]) Fluconazole 150 MG Oral 12/02/2017 NEXT GEN ([facility] Tablet [Diflucan] 12:00:00 AM [facility]) Capsaicin 0.25 MG/ML 01/01/2017 NEXTGEN ([facility] Topical Cream 12:00:00 AM [facility]) ipratropium-albuterol 0.5 [facility] mg-3 mg (2.5 mg base)/3 mL [facility] Solution for Nebulization furosemide 20 mg Tablet [facility] apixaban (Eliquis) 5 mg [facility] spironolactone 25 mg Tablet [facility] pravastatin 10 mg Tablet [facility] metoprolol succinate 25 mg S [facility] Tablet Extended Release 24 [facility] hr lisinopril 5 mg Tablet [facility] levothyroxine 100 mcg [facility] Sulfamethoxazole 800 MG / [facility] Trimethoprim 160 MG Oral [facility] Tablet
[2019-11-22] MEDS ORDERED: SODIUM CHLORIDE 1,000 ML IV SCH ×2 (05:45→14:44)
--- NOTE | 2019-11-22 06:22 | HP ---
CHIEF COMPLAINT: MS PCP: Dr. Adams health and physical education professor: Dr. 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 Patient was severely altered and unable to provide any information - spoke to daughter Leah [phone]. Before previous admission, patient's baseline was highly function including walking with a walker, seeing his friends in the park, and speaking normally without being altered. Then, patient became altered which is what led to the p revious admission. Patient was discharge to a rehab center, where he fell on the day he arrived, and then he fell again last night (Thursday evening). Last night's fall was unwitnessed. The rehab center did not want to send him to the hospital but patient's daughter is a nurse and insisted he be brought in. ER course was notable for: (1) head CT showing acute subarachnoid hemorrhage (2) WBC 11.5, Na 135, K 5.2, BUN 53, Cr 2.2 (3) EKG showing atrial fibrillation Recent Travel: none PAST MEDICAL HISTORY: as per HPI PAST SURGICAL HISTORY: "for his foot many years ago" small hernia repair >20 years ago Family History: father of a DVT mother had breast cancer brother is 92yo and healthy, fully oriented daughter has HTN Social History: Smoking: denied but much secondhand smoking due to his father being a heavy smoker Alcohol: denied Drugs: denied Home: before previous admission lived in senior housing with an aid that came throughout the day Allergies No Known Allergies Allergy (Verified 11/21/19 22:34) HOME MEDICATIONS: Home Medications Medication Instructions Recorded Apixaban [Eliquis] 5 mg PO DAILY 03/13/17 Lisinopril [Zestril] 5 mg PO DAILY 03/13/17 Spironolactone [Aldactone -] 25 mg PO DAILY 03/13/17 Furosemide [Lasix] 20 mg PO DAILY 11/01/19 Ipratropium/Albuterol Sulfate 1 amp IH Q4H PRN 11/01/19 [Iprat-Albut 0.5-3(2.5) mg/3 ml] Levothyroxine [Synthroid -] 100 mcg PO DAILY 11/01/19 Pravastatin Sodium 10 mg PO HS 11/01/19 Budesonide/Formeterol Fumarate 2 puff IH BID #1 inhaler 11/15/19 [SYMBICORT 80/4.5mcg -] Colchicine [Colcrys] 0.6 mg PO DAILY #1 tab 11/15/19 Gabapentin [Neurontin -] 300 mg PO DAILY #30 capsule 11/15/19 Metoprolol Succinate [Toprol XL -] 50 mg PO DAILY #60 tab.sr.24h 11/15/19 Thiamine HCl [Vitamin B1 -] 250 mg PO DAILY #30 tablet 11/15/19 REVIEW OF SYSTEMS per daughter, patient was complaining of toe pain, back pain, headache PHYSICAL EXAMINATION Vital Signs - 24 hr 11/21/19 11/22/19 22:33 01:33 Temperature 98.1 F Pulse Rate 60 Pulse Rate [ 99 H Left Apical] Respiratory 18 18 Rate Blood Pressure 99/59 L Blood Pressure 117/79 [Right Arm] O2 Sat by Pulse 94 L 98 Oximetry (%) GENERAL: M, appears stated age, average body habitus, only oriented to self showing signs of mild distress/discomfort HEAD: Normal with no signs of trauma, poor dentition EYES: PERRL, direct and consensual pupillary reflexes intact bilaterally, extraocular movements intact bilaterally EARS, NOSE, THROAT: dry mucous membranes. LUNGS: CTAB (limited exam) HEART: irregularly irregular, normal S1 and S2 without murmur ABDOMEN: Soft, nontender, mildly protuberant, active bowel sounds EXTREMITIES: 1+ radial and dorsalis pedis pulses, warm to touch bilaterally, nontender to palpation, no peripheral edema appreciated, no active lesions or ulcers noted on feet bilaterally including interdigital web spaces PSYCHIATRIC: apparent AMS SKIN: Warm, dry, normal turgor, no rashes or lesions noted, normal capillary refill. Laboratory Results - last 24 hr 11/22/19 11/22/19 11/22/19 00:00 00:20 00:20 WBC 11.5 H RBC 4.16 Hgb 13.8 Hct 41.1 MCV 99.0 H MCH 33.3 MCHC 33.6 RDW 12.6 Plt Count 271 MPV 9.6 Absolute Neuts (auto) 8.8 H Neutrophils % 76.6 Lymphocytes % 13.9 Monocytes % 8.2 Eosinophils % 1.0 Basophils % 0.3 Nucleated RBC % 0 PT with INR 19.80 H INR 1.67 H PTT (Actin FS) 32.1 Sodium 135 L Potassium 5.2 H Chloride 98 Carbon Dioxide 32 Anion Gap 5 L BUN 53.0 H Creatinine 2.2 H Est GFR (CKD-EPI)AfAm 29.89 Est GFR (CKD-EPI)NonAf 25.79 Random Glucose 143 H Calcium 8.9 Total Bilirubin 0.9 AST 29 ALT 37 Alkaline Phosphatase 114 Creatine Kinase 274 Creatine Kinase Index 1.3 CK-MB (CK-2) 3.6 Troponin I < 0.02 Total Protein 7.7 Albumin 3.6 Urine Color Urine Appearance Urine pH Ur Specific [place] Urine Protein Urine Glucose (UA) Urine Ketones Urine Blood Urine Nitrite Urine Bilirubin Urine Urobilinogen Ur Leukocyte Esterase 11/22/19 01:18 WBC RBC Hgb Hct MCV MCH MCHC RDW Plt Count MPV Absolute Neuts (auto) Neutrophils % Lymphocytes % Monocytes % Eosinophils % Basophils % Nucleated RBC % PT with INR INR PTT (Actin FS) Sodium Potassium Chloride Carbon Dioxide Anion Gap BUN Creatinine Est GFR (CKD-EPI)AfAm Est GFR (CKD-EPI)NonAf Random Glucose Calcium Total Bilirubin AST ALT Alkaline Phosphatase Creatine Kinase Creatine Kinase Index CK-MB (CK-2) Troponin I Total Protein Albumin Urine Color Yellow Urine Appearance Clear Urine pH 5.0 D Ur Specific [place] 1.012 Urine Protein Negative Urine Glucose (UA) Negative Urine Ketones Negative Urine Blood Negative Urine Nitrite Negative Urine Bilirubin Negative Urine Urobilinogen 0.2 Ur Leukocyte Esterase Negative ASSESSMENT/PLAN: 88yo M with PMHx of afib on eliquis, CVA, HTN, HFrEF, CAD, throat cancer, hypothyroidism, 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 #subarachnoid hemorrage in setting of AMS - neurosurgery consulted - loaded with keppra - neurology consulted for worsening AMS - hold BP and diuretic meds - hold eliquis - Echo ordered - speech and swallow - fall precautions #CASIE vs CKD: BUN and Cr doubled since previous admission - kidney US ordered - nephrology consulted - gentle hydration #FEN - 50cc/h NS - replete lytes PRN - NPO until s/p speech and swallow #PPX - DVT: SCDs #Dispo: medSurg Family Medical History Family History: As Documented Visit type - Medication Review Med list reviewed for High Risk Meds patients 65 and older: Yes - Emergency Visit Emergency Visit: Yes ED Registration Date: 11/22/19 Care time: The patient presented to the Emergency Department on the above date and was hospitalized for further evaluation of their emergent condition. - New Patient This patient is new to me today: Yes Date on this admission: 11/22/19 - Critical Care Critical Care patient: No ATTENDING PHYSICIAN STATEMENT I saw and evaluated the patient. I reviewed the resident's note and discussed the case with the resident. I agree with the resident's findings and plan as documented. SUBJECTIVE: OBJECTIVE: ASSESSMENT AND PLAN:
[2019-11-22 09:51] LABS: BASO % 0.5 % (0-2.0); EOS % 1.1 % (0-4.5); HEMATOCRIT 40.7 % (35.4-49); HEMOGLOBIN 13.8 GM/dL (11.7-16.9); LYMPH % 13.4 % (8-40); MCH 33.5 pg (25.7-33.7); MCHC 33.8 g/dl (32.0-35.9); MEAN CELL VOLUME 99.1 fl (80-96); MEAN PLT VOLUME 9.2 fl (7.5-11.1); MONO % 10.5 % (3.8-10.2); NEUT % 74.5 % (42.8-82.8); PLATELET COUNT 239 K/MM3 (134-434); RDW 12.7 % (11.9-15.9); WHITE BLOOD COUNT 8.5 K/mm3 (4.0-10.0)
--- NOTE | 2019-11-22 10:07 | EKG ---
Test Reason : Blood Pressure : / mmHG Vent. Rate : 078 BPM Atrial Rate : 104 BPM P-R Int : 000 ms QRS Dur : 106 ms QT Int : 384 ms P-R-T Axes : 000 029 096 degrees QTc Int : 437 ms ATRIAL FIBRILLATION CANNOT RULE OUT ANTERIOR INFARCT , AGE UNDETERMINED ABNORMAL ECG WHEN COMPARED WITH ECG OF 01-NOV-2019 21:43, NO SIGNIFICANT CHANGE WAS FOUND Confirmed by MD JENNY, ROGER ([id number]) on 11/22/2019 10:07:05 AM Referred By: Confirmed By:ROGER ALVARADO MD
[2019-11-22 10:32] LABS: ALBUMIN 3.5 g/dl (3.4-5.0); BILIRUBIN,TOTAL 1.2 mg/dL (0.2-1); BLOOD UREA NITROGEN 46.2 mg/dL (7-18); CALCIUM 9.1 mg/dL (8.5-10.1); CREATININE 1.8 mg/dL (0.55-1.3); MAGNESIUM 2.6 mg/dL (1.8-2.4); PHOSPHOROUS 2.9 mg/dL (2.5-4.9); POTASSIUM 4.7 mmol/L (3.5-5.1); TOT PROT 7.7 g/dl (6.4-8.2)
--- NOTE | 2019-11-22 10:42 | CON.NEURO ---
Consult Consult Specialty:: [facility] Referred by:: ER Reason for Consultation:: Fall - History of Present Illness History of Present Illness: this is an 88-year-old right-handed man with multiple medical problem came in status post fall. We don't know exactly what happened with the patient patient was admitted to the hospital recently. Patient came in last night patient had a CAT scan of the head I reviewed the CAT scan which revealed evidence of most probably traumatic subarachnoid hemorrhage. Patient himself is not able to tell us what happened speaking with the family patient was a high functioning 82-year-old man walks with walker. Patient with history of cardiac arrhythmia on a blood thinner. Patient was in the emergency room. 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), and recent admission 10/11/2019 - 11/18/2019 who presented with an unwitnessed fall - History Source History Provided By: Medical Record Limitations to Obtaining History: Clinical Condition - Past Medical History Cardio/Vascular: Yes: CHF, HTN, NC, NC Musculoskeletal: Yes: Chronic low back pain Rheumatology: Yes: Gout ENT: Yes: Other (throat cancer) Endocrine: Yes: Hypothyroidism - Past Surgical History Past Surgical History: Yes: Hernia Repair - Alcohol/Substance Use Hx Alcohol Use: No History of Substance Use: reports: None - Smoking History Smoking history: Never smoked Have you smoked in the past 12 months: No Aproximately how many cigarettes per day: 0 - Social History Usual Living Arrangement: With Significant Other ADL: Independent History of Recent Travel: No Home Medications - Allergies Allergies/Adverse Reactions: Allergies Allergy/AdvReac Type Severity Reaction Status Date / Time No Known Allergies Allergy Verified 11/21/19 22:34 - Home Medications Home Medications: Ambulatory Orders Apixaban [Eliquis] 5 mg PO DAILY 03/13/17 Lisinopril [Zestril] 5 mg PO DAILY 03/13/17 Spironolactone [Aldactone -] 25 mg PO DAILY 03/13/17 Furosemide [Lasix] 20 mg PO DAILY 11/01/19 Ipratropium/Albuterol Sulfate [Iprat-Albut 0.5-3(2.5) mg/3 ml] 1 amp IH Q4H PRN 11/01/19 Levothyroxine [Synthroid -] 100 mcg PO DAILY 11/01/19 Pravastatin Sodium 10 mg PO HS 11/01/19 Budesonide/Formeterol Fumarate [SYMBICORT 80/4.5mcg -] 2 puff IH BID #1 inhaler 11/15/19 Colchicine [Colcrys] 0.6 mg PO DAILY #1 tab 11/15/19 Gabapentin [Neurontin -] 300 mg PO DAILY #30 capsule 11/15/19 Metoprolol Succinate [Toprol XL -] 50 mg PO DAILY #60 tab.sr.24h 11/15/19 Thiamine HCl [Vitamin B1 -] 250 mg PO DAILY #30 tablet 11/15/19 Family Medical History Family History: Unable to Obtain Review of Systems - Review of Systems Constitutional: reports: No Symptoms Eyes: reports: No Symptoms (44) Neurological: reports: Dizziness, Headache, Incoordination, Numbness Physical Exam-Neuro Vital Signs: Vital Signs Temperature 98.2 F 11/22/19 07:01 Pulse Rate 99 H 11/22/19 07:01 Respiratory Rate 18 11/22/19 07:01 Blood Pressure 118/79 11/22/19 07:01 O2 Sat by Pulse Oximetry (%) 96 11/22/19 07:01 Constitutional: Yes: Well Nourished Neck: Yes: WNL Cardiovascular: Yes: WNL Labs: CBC, BMP 11/22/19 09:37 11/22/19 09:37 INR, PTT INR 1.67 (0.83-1.09) H 11/22/19 00:20 - Neuro Exam Level Of Consciousness: Yes: Oriented to Person Eyes: Yes: PERRLA Speech: WNL Dominant Hand: Right Cranial Nerves II-XII Intact: Yes Gag: Present DTR's: 1+ Left Bicep, 1+ Right Bicep, 1+ Left Tricep, 1+ Right Tricep Response to light touch: Normal Response to pain prick: Normal Response to temperature: Normal Response to vibration: Normal Motor Strength: 3/5: Left Arm, Right Arm, Left Leg, Right Leg Imaging - Results Cat Scan: Image Reviewed Problem List - Problems (1) Subarachnoid hemorrhage Code(s): I60.9 - NONTRAUMATIC SUBARACHNOID HEMORRHAGE, UNSPECIFIED (2) Acute kidney injury Code(s): N17.9 - ACUTE KIDNEY FAILURE, UNSPECIFIED (3) Arterial insufficiency of lower extremity Code(s): I73.9 - PERIPHERAL VASCULAR DISEASE, UNSPECIFIED (4) Atrial fibrillation Code(s): I48.91 - UNSPECIFIED ATRIAL FIBRILLATION Qualifiers: Atrial fibrillation type: chronic Assessment/Plan subarachnoid hemorrhage most probably traumatic associated with the fall Cardiac arrhythmia Gait apraxia 1. Admit to the medical ICU. 2. Neuro checks every 1 hour. 3. Stop the Keppra. 4. Seizure precautions. 5. Hold off all anticoagulation. 6. Repeat CAT scan in 12 hours. 7. Ativan when necessary seizure. Thank you very much for allowing me to be part of this patient neurological care. Dane العلي M.D. Critical care time spent 45 minutes. [phone]
--- NOTE | 2019-11-22 10:45 | CONSULT ---
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 Patient was severely altered and unable to provide any information - spoke to daughter Leah [phone]. Before previous admission, patient's baseline was highly function including walking with a walker, seeing his friends in the park, and speaking normally without being altered. Then, patient became altered which is what led to the previous admission. Patient was discharge to a rehab center, where he fell on the day he arrived, and then he fell again last night (Thursday evening). Last night's fall was unwitnessed. The rehab center did not want to send him to the hospital but patient's daughter is a nurse and insisted he be brought in. ER course was notable for: (1) head CT showing acute subarachnoid hemorrhage (2) WBC 11.5, Na 135, K 5.2, BUN 53, Cr 2.2 (3) EKG showing atrial fibrillation Known to me from recent admission, verbal, confused, tolerated Dys puree/nectar with aspiration precautions,Magic cup, 2 mary HN or Su[place]ena Assisted with meals, good appetite. Selected Entries 11/22/19 11/22/19 11/22/19 01:33 03:00 07:01 Temperature 98.1 F 98.2 F Pulse Rate [ 99 H 99 H Left Apical] Respiratory 18 18 Rate Respiratory Normal Normal Normal Depth Respiratory Non-Labored Non-Labored Non-Labored Effort Short of Breath Blood Pressure 117/79 118/79 [Right Arm] Blood Pressure 72 Mean [Right Arm ] O2 Sat by Pulse 98 96 Oximetry (%) Oxygen Delivery Room Air Room Air Method Laboratory Tests 11/22/19 11/22/19 00:20 00:20 WBC 11.5 H COVID-19 ([facility]) Pending History Source: Medical Record Limitations to Obtaining History: Clinical Condition - Past Medical History Cardiovascular: Yes: CHF, HTN, NE, NE Musculoskeletal: Yes: Chronic low back pain Rheumatology: Yes: Gout ENT: Yes: Other (throat cancer) Endocrine: Yes: Hypothyroidism - Past Surgical History Past Surgical History: Yes: Hernia Repair - Smoking History Smoking history: Never smoked Have you smoked in the past 12 months: No Aproximately how many cigarettes per day: 0 - Alcohol/Substance Use Hx Alcohol Use: No History of Substance Use: reports: None - Social History ADL: Independent History of Recent Travel: No History - Admission Reason For Visit: SUBARACHNOID HEMORRHAGE - Diagnostics X-ray: Report Reviewed CT Scan: Report Reviewed - General Mental Status: Awake and Alert, Able to Follow Commands, Confused Attention: Distractible Ability to Follow Directions: Fair Head/Neck Control: Fair - Hearing Hearing: Functional Speech Evaluation - Communication Primary Language: AZERI Communication: Yes: Simple Responses - Speech Production Intelligibility: Yes: Mildly Impaired - Speech Characteristics Voice Loudness: Normal Voice Pitch: Yes: Normal Voice Phonatory-based Quality: Yes: Normal Articulation: Yes: Imprecise (mild) - Language/Auditory Comprehension Follows: Yes: 1 Stage Simple Commands - Language/Verbal Expression Aphasia: Yes: Anomia - Swallow Evaluation/Bedside Assessment Current Nutritional Intake: NPO Oral Secretions: Yes: WFL Facial Symmetry at Rest: Symmetrical Rate of Intake: Slow/Holding Bolus Size: Small Labial Seal: WFL Oral Prep Time: Increased A-P Transit: Impaired Timing of Swallow: Delayed Coughing/Throat Clear: No Change in Voice: No Recommendations - Speech Evaluation, Impression/Plan Impression: onfused, restless, similar to recent admission - Disposition Discharge to: [facility] Facility - Dysphagia Impressions/Plan Swallowing Skills: Impaired Dysphagia Impressions: Mild Impairment *Silent aspiration: cannot be R/O at bedside Dysphagia Treatment Plan: Small Bites, Chin Tuck/Down, Clear Pocket Food, Safe Rate, 1/2 tsp. at a time, Elevate HOB during feed - Recommendations Diet Consistency: Dysphagia Pureed Medication Administration: Crushed with applesauce Liquids: [place] Thick Supplement: Magic Cup, Ensure Pudding
--- NOTE | 2019-11-22 10:54 | CON.NEP ---
Consult Consult Specialty:: Nephrology Referred by:: Medicine Reason for Consultation:: Acute kidney injury - History of Present Illness Chief Complaint: Fall History of Present Illness: This is a 88 year old male with history of atrial fibrillation on Eliquis, hypertension, heart failrue, coronary artery disease, throat cancer, and hypothyrodism who presented s/p fall and found to have a subarachnoid hemorrhage and acute kidney injury with Cr of 2.2. Pt with normal renal function at baseline. Seen and examined at the bedside. Awake but confused. Not able to provide history. Denies any sob, chest pain, fever, chills, N/V/D. Making urine. - History Source History Provided By: Patient Limitations to Obtaining History: No Limitations - Past Medical History Cardio/Vascular: Yes: CHF, HTN, NV, NV Musculoskeletal: Yes: Chronic low back pain Rheumatology: Yes: Gout ENT: Yes: Other (throat cancer) Endocrine: Yes: Hypothyroidism - Past Surgical History Past Surgical History: Yes: Hernia Repair - Alcohol/Substance Use Hx Alcohol Use: No History of Substance Use: reports: None - Smoking History Smoking history: Never smoked Have you smoked in the past 12 months: No Aproximately how many cigarettes per day: 0 - Social History Usual Living Arrangement: With Significant Other ADL: Independent History of Recent Travel: No Home Medications - Allergies Allergies/Adverse Reactions: Allergies Allergy/AdvReac Type Severity Reaction Status Date / Time No Known Allergies Allergy Verified 11/21/19 22:34 - Home Medications Home Medications: Ambulatory Orders Apixaban [Eliquis] 5 mg PO DAILY 03/13/17 Lisinopril [Zestril] 5 mg PO DAILY 03/13/17 Spironolactone [Aldactone -] 25 mg PO DAILY 03/13/17 Furosemide [Lasix] 20 mg PO DAILY 11/01/19 Ipratropium/Albuterol Sulfate [Iprat-Albut 0.5-3(2.5) mg/3 ml] 1 amp IH Q4H PRN 11/01/19 Levothyroxine [Synthroid -] 100 mcg PO DAILY 11/01/19 Pravastatin Sodium 10 mg PO HS 11/01/19 Budesonide/Formeterol Fumarate [SYMBICORT 80/4.5mcg -] 2 puff IH BID #1 inhaler 11/15/19 Colchicine [Colcrys] 0.6 mg PO DAILY #1 tab 11/15/19 Gabapentin [Neurontin -] 300 mg PO DAILY #30 capsule 11/15/19 Metoprolol Succinate [Toprol XL -] 50 mg PO DAILY #60 tab.sr.24h 11/15/19 Thiamine HCl [Vitamin B1 -] 250 mg PO DAILY #30 tablet 11/15/19 Family Medical History Family History: Unable to Obtain Review of Systems - Review of Systems Constitutional: reports: No Symptoms Eyes: reports: No Symptoms HENT: reports: No Symptoms Neck: reports: No Symptoms Cardiovascular: reports: No Symptoms Respiratory: reports: No Symptoms Gastrointestinal: reports: No Symptoms Genitourinary: reports: No Symptoms Breasts: reports: No Symptoms Reported Musculoskeletal: reports: No Symptoms Neurological: reports: No Symptoms Endocrine: reports: No Symptoms Nephrology Consult - Height Height: 5 ft 11 in - Weight Weight: 90.718 kg - BMI Body Mass Index (BMI): 27.8 - Lab Results CBC,BMP: CBC, BMP 11/22/19 09:37 11/22/19 09:37 Anion Gap: Anion Gap Anion Gap 8 MMOL/L (8-16) 11/22/19 09:37 - Physical Examination Vital Signs: Vital Signs Temperature 98.2 F 11/22/19 07:01 Pulse Rate 99 H 11/22/19 07:01 Respiratory Rate 18 11/22/19 07:01 Blood Pressure 118/79 11/22/19 07:01 O2 Sat by Pulse Oximetry (%) 96 11/22/19 07:01 Constitutional: Yes: No Distress Eyes: Yes: Conjunctiva Clear HENT: Yes: Atraumatic Neck: Yes: Supple Cardiovascular: Yes: Regular Rate and Rhythm Respiratory: Yes: Regular, CTA Bilaterally Gastrointestinal: Yes: Soft. No: Tenderness Renal/: No: Bladder Distention, CVA Tenderness - Left, CVA Tenderness - Right, Diaz Present Extremities: No: Cold, Cool, Cyanosis Edema: No Neurological: Yes: Alert, Oriented Assessment/Plan 88 year old male with history of atrial fibrillation on Eliquis, hypertension, heart failrue, coronary artery disease, throat cancer, and hypothyroidism who presented s/p fall and found to have a subarachnoid hemorrhage and acute kidney injury with Cr of 2.2. 1. Acute kidney injury likely secondary to volume depletion +/- urinary retention 2. Subarachnoid hemorrhage 3. Atrial fibrillation on Eliquis 4. Hypertension 5. Coronary artery disease 6. Mild hyperkalemia 7. Hypermagnesemia in setting of renal insufficiency Would continue very gentle IV fluid hydration up until tomorrow morning. Renal function already improving. CT imaging of the abdomen showed no evidence of hydronephrosis Hold diuretics for now Neurosurgery and neurology follow up Maintain Blood pressure < 160 systolic and < 110 diastolic Hyperkalemia resolved Hypermagnesemia should improve with improvement in renal function Thank you Will follow Js Judge DO
[2019-11-22] MEDS ORDERED: ALBUTEROL SO4 2.5/IPRATROPIUM 0.5 INH SOL 3 ML VIAL.NEB. NEB PRN (12:05)
--- NOTE | 2019-11-22 12:05 | PN ---
Teaching Attending Note Name of Resident: Manda Mattson ATTENDING PHYSICIAN STATEMENT I saw and evaluated the patient. I reviewed the resident's note and discussed the case with the resident. I agree with the resident's findings and plan as documented. SUBJECTIVE: Seen and examined at bedside. Patient is alert and oriented x1-2, jovial, s inging [place] drinking songs but more confused than baseline. Patient has no focal deficits. Per neurology recommendations ICU consulted and will evaluate for ICU admission for every hour neuro checks due to subarachnoid hemorrhage. OBJECTIVE Last Vital Signs Temp Pulse Resp BP Pulse Ox 98.2 F 99 H 18 118/79 96 11/22/19 07:01 11/22/19 07:01 11/22/19 07:01 11/22/19 07:01 11/22/19 07:01 PE: Per resident note Labs/Imaging: reviewed ASSESSMENT/PLAN 80-year-old female with past medical history of A. fib on Eliquis, CVA, hypertension, hyperlipidemia, gout, hypothyroidism, heart failure with reduced ejection fraction, recent admission for altered mental status and delirium, presents with subarachnoid hemorrhage after an unwitnessed fall at [facility]. #Traumatic subarachnoid hemorrhage, patient on Eliquis Neurology on board: Dolores woodard Neurosurgery consulted: Pending evaluation ICU consulted per neurology recommendations Hold Keppra Every hour neuro checks Hold Eliquis Repeat head CT ordered #Prerenal CASIE: improving Patient appears dehydrated and has elevated BUN to creatinine ratio. Creatinine 2.2 on admission, 1.1 1-week earlier -IV fluids Trend creatinine Hold lisinopril, spironolactone, Lasix #History of seizures Holding Keppra per neurology Ativan as needed seizures #Atrial fibrillation Continue metoprolol succinate 25 mg daily Hold Eliquis #CHF Holding lisinopril, spironolactone, Lasix in setting of CASIE #Hypertension Holding lisinopril, spironolactone, Lasix in setting of CASIE -cont metoprolol #History of hypothyroidism Continue home medication Disposition: ICU consulted for upgrade for every hour neuro checks
[2019-11-22] MEDS: metoPROLOL SUCCINATE 25 MG TAB.SR.24H (FP) PO SCH (12:47)
--- NOTE | 2019-11-22 13:36 | CONSULT ---
Consult - text type - Consultation Consultation Note: NEUROSURGERY CONSULTATION Mesfin Gutierrez is an 88 year old male with multiple medical problems who was found down after an unwitnessed fall at [facility]. The patient was reportedly high functioning and ambulated with a walker. He was evaluated with a CT Head which was notable for a small amount of traumatic subarachnoid blood in the sulci of the parietal convexity. Patient was admitted and followup CT is largely unchanged. His Elliquis is being held which is reasonable. At this point, there is no pathology which mandates acute Neurosurgical intervention. Agree with holding Elliquis and close observation until patient's mental status improves. - GI/DVT prophylaxis - Agree that anticonvulsants not required in the absence of seizure activity - will follow
--- NOTE | 2019-11-22 13:36 | CONSULT ---
Consultation: REQUESTING PROVIDER: Dr. Claudio CONSULT REQUEST: We have been asked to medically evaluate this patient for ICU admission. 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 He presented to the ED s/p unwitnessed fall from his bed at [facility]. CT head was performed and the patient was found to have an acute subarachnoid hemorrhage. Patient is currently awake, alert, in no acute distress. The patient denies ever hitting his head. He is currently oriented to person and place but not time. REVIEW OF SYSTEMS: - Denies/ patient AMS PHYSICAL EXAMINATION Vital Signs - 24 hr 11/21/19 11/22/19 11/22/19 22:33 01:33 07:01 Temperature 98.1 F 98.2 F Pulse Rate 60 Pulse Rate [ 99 H 99 H Left Apical] Respiratory 18 18 18 Rate Blood Pressure 99/59 L Blood Pressure 117/79 118/79 [Right Arm] O2 Sat by Pulse 94 L 98 96 Oximetry (%) GENERAL: Awake, alert, oriented to person and place but not time HEAD: Normal with no signs of trauma. No bruises or bumps from the fall observed EYES: PERRL, extraocular movements intact ENT: Moist mucous membranes. NECK: Normal range of motion LUNGS: CTA BL HEART: Irregularly regular ABDOMEN: Soft, nontender, not distended MUSCULOSKELETAL: Normal range of motion at all joints UPPER EXTREMITIES: hands cold, but well-perfused. No cyanosis. No peripheral edema. Slight drift of right arm LOWER EXTREMITIES: warm, well-perfused. No peripheral edema. NEUROLOGICAL: Normal speech PSYCHIATRIC: Cooperative. Good eye contact. Appropriate mood and affect. SKIN: Warm, dry, normal turgor, no rashes or lesions noted. Laboratory Results - last 24 hr 11/22/19 11/22/19 11/22/19 00:00 00:20 00:20 WBC 11.5 H RBC 4.16 Hgb 13.8 Hct 41.1 MCV 99.0 H MCH 33.3 MCHC 33.6 RDW 12.6 Plt Count 271 MPV 9.6 Absolute Neuts (auto) 8.8 H Neutrophils % 76.6 Lymphocytes % 13.9 Monocytes % 8.2 Eosinophils % 1.0 Basophils % 0.3 Nucleated RBC % 0 PT with INR 19.80 H INR 1.67 H PTT (Actin FS) 32.1 Sodium 135 L Potassium 5.2 H Chloride 98 Carbon Dioxide 32 Anion Gap 5 L BUN 53.0 H Creatinine 2.2 H Est GFR (CKD-EPI)AfAm 29.89 Est GFR (CKD-EPI)NonAf 25.79 POC Glucometer Random Glucose 143 H Calcium 8.9 Phosphorus Magnesium Total Bilirubin 0.9 AST 29 ALT 37 Alkaline Phosphatase 114 Creatine Kinase 274 Creatine Kinase Index 1.3 CK-MB (CK-2) 3.6 Troponin I < 0.02 Total Protein 7.7 Albumin 3.6 Urine Color Urine Appearance Urine pH Ur Specific [place] Urine Protein Urine Glucose (UA) Urine Ketones Urine Blood Urine Nitrite Urine Bilirubin Urine Urobilinogen Ur Leukocyte Esterase 11/22/19 11/22/19 11/22/19 01:18 09:37 09:37 WBC 8.5 RBC 4.10 Hgb 13.8 Hct 40.7 MCV 99.1 H MCH 33.5 MCHC 33.8 RDW 12.7 Plt Count 239 MPV 9.2 Absolute Neuts (auto) 6.3 Neutrophils % 74.5 Lymphocytes % 13.4 Monocytes % 10.5 H Eosinophils % 1.1 Basophils % 0.5 Nucleated RBC % 0 PT with INR INR PTT (Actin FS) Sodium 137 Potassium 4.7 Chloride 102 Carbon Dioxide 28 Anion Gap 8 BUN 46.2 H Creatinine 1.8 H Est GFR (CKD-EPI)AfAm 38.10 Est GFR (CKD-EPI)NonAf 32.87 POC Glucometer Random Glucose 125 H Calcium 9.1 Phosphorus 2.9 Magnesium 2.6 H Total Bilirubin 1.2 H AST 34 ALT 37 Alkaline Phosphatase 119 H Creatine Kinase Creatine Kinase Index CK-MB (CK-2) Troponin I Total Protein 7.7 Albumin 3.5 Urine Color Yellow Urine Appearance Clear Urine pH 5.0 D Ur Specific [place] 1.012 Urine Protein Negative Urine Glucose (UA) Negative Urine Ketones Negative Urine Blood Negative Urine Nitrite Negative Urine Bilirubin Negative Urine Urobilinogen 0.2 Ur Leukocyte Esterase Negative 11/22/19 11:31 WBC RBC Hgb Hct MCV MCH MCHC RDW Plt Count MPV Absolute Neuts (auto) Neutrophils % Lymphocytes % Monocytes % Eosinophils % Basophils % Nucleated RBC % PT with INR INR PTT (Actin FS) Sodium Potassium Chloride Carbon Dioxide Anion Gap BUN Creatinine Est GFR (CKD-EPI)AfAm Est GFR (CKD-EPI)NonAf POC Glucometer 134 Random Glucose Calcium Phosphorus Magnesium Total Bilirubin AST ALT Alkaline Phosphatase Creatine Kinase Creatine Kinase Index CK-MB (CK-2) Troponin I Total Protein Albumin Urine Color Urine Appearance Urine pH Ur Specific [place] Urine Protein Urine Glucose (UA) Urine Ketones Urine Blood Urine Nitrite Urine Bilirubin Urine Urobilinogen Ur Leukocyte Esterase Active Medications Generic Name Dose Route Start Last Admin Trade Name Freq PRN Reason Stop Dose Admin Albuterol/Ipratropium 1 amp 11/22/19 12:05 Duoneb - NEB Q4H PRN WHEEZING Atorvastatin Calcium 10 mg 11/22/19 22:00 Lipitor - PO HS NELSY Budesonide/Formoterol Fumarate 2 puff 11/22/19 22:00 Symbicort 80/4.5mcg - IH BID NELSY Chlorhexidine Gluconate 1 applic 11/22/19 22:00 Hibiclens For Decolonization - TP HS NELSY Sodium Chloride 1,000 mls @ 50 mls/hr 11/22/19 05:45 11/22/19 05:52 Normal Saline - IV 11/23/19 01:44 50 mls/hr ASDIR NELSY Administration Levothyroxine Sodium 100 mcg 11/23/19 07:00 Synthroid - PO 0700 NELSY Metoprolol Succinate 50 mg 11/22/19 12:15 11/22/19 12:47 Toprol Xl - PO 50 mg DAILY NELSY Administration Mupirocin 1 applic 11/22/19 22:00 Bactroban Ointment (For Decolonization) - NS 11/27/19 21:[address] HEAD 11/22/19: Since a prior study of 11/21/2019, there has been no significant change. Again noted is a small of amount of subarachnoid blood within the sulci of the convexity of the brain bilaterally. No new intracranial hemorrhage, mass lesions or acute infarction have developed. There is no evidence of fracture or acute bony abnormalities. IMPRESSION: No evidence of acute CVA or significant change since 11/21/2019. 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 He presented to the ED s/p unwitnessed fall from his bed. CT head showed small of amount of subarachnoid blood within the sulci of the convexity of the brain bilaterally. Patient admitted to ICU for further management. Neuro - Hx of CVA, L foot drop, and baseline confusion - CT head: subarachnoid blood within the sulci of the convexity of the brain bilaterally. - Neuro surgery consulted (Dr. Cormier) At this point, there is no pathology which mandates acute Neurosurgical intervention. Agree with holding Elliquis and close observation until patient's mental status improves. Agree that anticonvulsants not required in the absence of seizure activity - Neurology consulted (Dr. العلي) Repeat CT head tomorrow q1H neuro checks Pulm - saturating 100% on room air Cardio - hx afib, HFrE, HTN - hold eliquis for possibly brain bleed - giving IVF >> watch for signs/symptoms of fluid overload - continue toprol 50 daily - continue statin daily Renal - CASIE >> creatinine trending down - baseline Cr last admission 1.1 - holding lisinopril for now - nephrology consulted (Dr. Judge) dehydration, or possible urinary retention - defer restarting diuretics to nephrology GI - ppx: protonix 40 mg po daily ID - UA not suggestive of infection Endo - hypothyroid, continue synthroid PPx - GI: PO protonix - DVT: holding FEN - IVF - check and repleat electrolytes as needed - NPO for now Lines - L AC peripheral line Dispo: Admit to ICU Visit type - Medication Review Med list reviewed for High Risk Meds patients 65 and older: Yes - Emergency Visit Emergency Visit: Yes ED Registration Date: 11/22/19 Care time: The patient presented to the Emergency Department on the above date and was hospitalized for further evaluation of their emergent condition. - New Patient This patient is new to me today: Yes Date on this admission: 11/22/19 - Critical Care Critical Care patient: Yes Total Critical Care Time (in minutes): 36 Critical Care Statement: The care of this patient involved high complexity decision making to prevent further life threatening deterioration of the patient's condition and/or to evaluate & treat vital organ system(s) failure or risk of failure. ATTENDING PHYSICIAN STATEMENT I saw and evaluated the patient. I reviewed the resident's note and discussed the case with the resident. I agree with the resident's findings and plan as documented. SUBJECTIVE: OBJECTIVE: ASSESSMENT AND PLAN:
--- NOTE | 2019-11-22 14:35 | PN ---
Teaching Attending Note Name of Resident: Michelle Juárez ATTENDING PHYSICIAN STATEMENT I saw and evaluated the patient. I reviewed the resident's note and discussed the case with the resident. I agree with the resident's findings and plan as documented. SUBJECTIVE: Pt seen and examined in the ICU. No specific complaints. Alert, oriented. Denies headache, nausea, vomiting. No focal motor deficits. OBJECTIVE: Vital Signs Period Temp Pulse Resp BP Sys/Yañez Pulse Ox Last 24 Hr 98.1 F-98.2 F 60-99 18-18 99-121/59-79 94-100 Intake & Output 11/19/19 11/20/19 11/21/19 11/22/19 23:59 23:59 23:59 23:59 Weight 90.718 kg 90.718 kg Gen: NAD at rest Heart: RRR Lung: decreased breath sounds at the bases Abd: soft, nontender Ext: no edema CBC, BMP 11/22/19 09:37 11/22/19 09:37 Active Medications Albuterol/Ipratropium (Duoneb -) 1 amp NEB Q4H PRN PRN Reason: WHEEZING Atorvastatin Calcium (Lipitor -) 10 mg PO HS NELSY Budesonide/Formoterol Fumarate (Symbicort 80/4.5mcg -) 2 puff IH BID NELSY Chlorhexidine Gluconate (Hibiclens For Decolonization -) 1 applic TP HS [facility] Sodium Chloride (Normal Saline -) 1,000 mls @ 50 mls/hr IV ASDIR [facility] Stop: 11/23/19 01:44 Last Admin: 11/22/19 05:52 Dose: 50 mls/hr Documented by: Levothyroxine Sodium (Synthroid -) 100 mcg PO 0700 [facility] Metoprolol Succinate (Toprol Xl -) 50 mg PO DAILY [facility] Last Admin: 11/22/19 12:47 Dose: 50 mg Documented by: Mupirocin (Bactroban Ointment (For Decolonization) -) 1 applic NS BID [facility] Stop: 11/27/19 21:59 ASSESSMENT AND PLAN: s/p Fall Small Traumatic Intracranial Hemorrhage Atrial Fibrillation LV Systolic Dysfunction Acute Kidney Injury HTN Hyperlipidemia Hypothyroidism - neuro checks - hold all anticoagulation, antiplatelets - repeat CT head in AM - IVF - monitor urine output, creatinine - DVT prophylaxis - ICU monitoring for now
--- NOTE | 2019-11-22 15:29 | PN ---
Physical Exam: SUBJECTIVE: Patient seen and examined at bedside. No acute events overnight. Pt found to be awake and alert, although no oriented. Pt is pleasantly demented. OBJECTIVE: Vital Signs Period Temp Pulse Resp BP Sys/Yañez Pulse Ox Last 24 Hr 98.1 F-98.2 F 60-99 18-18 99-121/59-79 94-100 GENERAL: Awake and alert. Pleasantly demented, HEENT: AT/NC. Dry mucus membranes. NECK: Normal range of motion, supple without lymphadenopathy, JVD, or masses. LUNGS: CTA B/l. No wheezes/rales noted. HEART: RRR, normal S1, S2. No murmurs noted. ABDOMEN: Distended, non-tender. No rebound tenderness/guarding. Tympanic to percussion. MUSCULOSKELETAL: Normal range of motion at all joints. No bony deformities or tenderness. No CVA tenderness. EXTREMITIES: No peripheral edema noted. NEUROLOGICAL: Unable to perform exam due to dementia. SKIN: Warm, dry, normal turgor, no rashes or lesions noted, normal capillary r efill. Laboratory Results - last 24 hr 11/22/19 11/22/19 11/22/19 00:00 00:20 00:20 WBC 11.5 H RBC 4.16 Hgb 13.8 Hct 41.1 MCV 99.0 H MCH 33.3 MCHC 33.6 RDW 12.6 Plt Count 271 MPV 9.6 Absolute Neuts (auto) 8.8 H Neutrophils % 76.6 Lymphocytes % 13.9 Monocytes % 8.2 Eosinophils % 1.0 Basophils % 0.3 Nucleated RBC % 0 PT with INR 19.80 H INR 1.67 H PTT (Actin FS) 32.1 Sodium 135 L Potassium 5.2 H Chloride 98 Carbon Dioxide 32 Anion Gap 5 L BUN 53.0 H Creatinine 2.2 H Est GFR (CKD-EPI)AfAm 29.89 Est GFR (CKD-EPI)NonAf 25.79 POC Glucometer Random Glucose 143 H Calcium 8.9 Phosphorus Magnesium Total Bilirubin 0.9 AST 29 ALT 37 Alkaline Phosphatase 114 Creatine Kinase 274 Creatine Kinase Index 1.3 CK-MB (CK-2) 3.6 Troponin I < 0.02 Total Protein 7.7 Albumin 3.6 Urine Color Urine Appearance Urine pH Ur Specific [place] Urine Protein Urine Glucose (UA) Urine Ketones Urine Blood Urine Nitrite Urine Bilirubin Urine Urobilinogen Ur Leukocyte Esterase 11/22/19 11/22/19 11/22/19 01:18 09:37 09:37 WBC 8.5 RBC 4.10 Hgb 13.8 Hct 40.7 MCV 99.1 H MCH 33.5 MCHC 33.8 RDW 12.7 Plt Count 239 MPV 9.2 Absolute Neuts (auto) 6.3 Neutrophils % 74.5 Lymphocytes % 13.4 Monocytes % 10.5 H Eosinophils % 1.1 Basophils % 0.5 Nucleated RBC % 0 PT with INR INR PTT (Actin FS) Sodium 137 Potassium 4.7 Chloride 102 Carbon Dioxide 28 Anion Gap 8 BUN 46.2 H Creatinine 1.8 H Est GFR (CKD-EPI)AfAm 38.10 Est GFR (CKD-EPI)NonAf 32.87 POC Glucometer Random Glucose 125 H Calcium 9.1 Phosphorus 2.9 Magnesium 2.6 H Total Bilirubin 1.2 H AST 34 ALT 37 Alkaline Phosphatase 119 H Creatine Kinase Creatine Kinase Index CK-MB (CK-2) Troponin I Total Protein 7.7 Albumin 3.5 Urine Color Yellow Urine Appearance Clear Urine pH 5.0 D Ur Specific [place] 1.012 Urine Protein Negative Urine Glucose (UA) Negative Urine Ketones Negative Urine Blood Negative Urine Nitrite Negative Urine Bilirubin Negative Urine Urobilinogen 0.2 Ur Leukocyte Esterase Negative 11/22/19 11:31 WBC RBC Hgb Hct MCV MCH MCHC RDW Plt Count MPV Absolute Neuts (auto) Neutrophils % Lymphocytes % Monocytes % Eosinophils % Basophils % Nucleated RBC % PT with INR INR PTT (Actin FS) Sodium Potassium Chloride Carbon Dioxide Anion Gap BUN Creatinine Est GFR (CKD-EPI)AfAm Est GFR (CKD-EPI)NonAf POC Glucometer 134 Random Glucose Calcium Phosphorus Magnesium Total Bilirubin AST ALT Alkaline Phosphatase Creatine Kinase Creatine Kinase Index CK-MB (CK-2) Troponin I Total Protein Albumin Urine Color Urine Appearance Urine pH Ur Specific [place] Urine Protein Urine Glucose (UA) Urine Ketones Urine Blood Urine Nitrite Urine Bilirubin Urine Urobilinogen Ur Leukocyte Esterase Active Medications Generic Name Dose Route Start Last Admin Trade Name Freq PRN Reason Stop Dose Admin Albuterol/Ipratropium 1 amp 11/22/19 12:05 Duoneb - NEB Q4H PRN WHEEZING Atorvastatin Calcium 10 mg 11/22/19 22:00 Lipitor - PO HS NELSY Budesonide/Formoterol Fumarate 2 puff 11/22/19 22:00 Symbicort 80/4.5mcg - IH BID NELSY Chlorhexidine Gluconate 1 applic 11/22/19 22:00 Hibiclens For Decolonization - TP HS [facility] Sodium Chloride 1,000 mls @ 50 mls/hr 11/22/19 14:44 Normal Saline - IV 11/23/19 01:44 ASDIR [facility] Levothyroxine Sodium 100 mcg 11/23/19 07:00 Synthroid - PO 0700 NELSY Metoprolol Succinate 50 mg 11/22/19 12:15 11/22/19 12:47 Toprol Xl - PO 50 mg DAILY [facility] Administration Mupirocin 1 applic 11/22/19 22:00 Bactroban Ointment (For Decolonization) - NS 11/27/19 21:59 BID [facility] Pantoprazole Sodium 40 mg 11/23/19 10:00 Protonix - PO DAILY [facility] ASSESSMENT/PLAN: 80F with pmhx of Maribel gordon on Eliquis, CVA, HTN/HLD, gout, hypothyroidism, heart failure with reduced ejection fraction, recent admission for altered mental status and delirium, presents with subarachnoid hemorrhage after an unwitnessed fall at [facility]. #Traumatic subarachnoid hemorrhage, patient on Eliquis Neurology on board: Appreciate recs Per neurosurg, no acute surgical intervention needed at this time. ICU consulted per neurology recommendations Hold Keppra Every hour neuro checks Hold Eliquis Repeat head CT ordered #Prerenal CASIE: improving Patient appears dehydrated and has elevated BUN to creatinine ratio. Creatinine 2.2 on admission, 1.1 1-week earlier -IV fluids Trend creatinine Hold lisinopril, spironolactone, Lasix #History of seizures; No new episodes. -Per neuro, hold home Keppra Ativan PRN for seizures #Atrial fibrillation; Rate-controlled. -Hold home Eliquis in setting of SAH Cont home med: Metoprolol Succinate 50 mg QD #CHF Holding lisinopril, spironolactone, Lasix in setting of CASIE #HTN/HLD; Hold home meds Lisinopril, Spironolactone, Lasix due to CASIE Cont home med: Metoprolol succinate 50 QD, Atorvastatin 10 HS #History of hypothyroidism; Cont home med: Levothyroxine 100 mcg QD #Prophylaxis DVT: SCDs GI: Protonix 40 mg PO QD Dispo -ICU consulted for upgrade for every hour neuro checks Visit type - Emergency Visit Emergency Visit: Yes ED Registration Date: 11/22/19 Care time: The patient presented to the Emergency Department on the above date and was hospitalized for further evaluation of their emergent condition. - New Patient This patient is new to me today: Yes Date on this admission: 11/22/19 - Critical Care Critical Care patient: Yes Total Critical Care Time (in minutes): 36 Critical Care Statement: The care of this patient involved high complexity decision making to prevent further life threatening deterioration of the patient's condition and/or to evaluate & treat vital organ system(s) failure or risk of failure. - Discharge Referral Referred to [facility] Med [facility] No - Medication Review Med list reviewed for High Risk Meds patients 65 and older: Yes ATTENDING PHYSICIAN STATEMENT I saw and evaluated the patient. I reviewed the resident's note and discussed the case with the resident. I agree with the resident's findings and plan as documented. SUBJECTIVE: OBJECTIVE: ASSESSMENT AND PLAN:
--- NOTE | 2019-11-22 17:02 | ECHO ---
Name: ADITYA MORALES Exam:Adult Echocardiogram Study Date: 11/22/2019 03:16 PM Age: 88 yrs Height: 71 in Weight: 200 lb BSA: 2.1 m2 BP: 133/75 mmHg MMode/2D Measurements & Calculations IVSd: 1.5 cm Ao root diam: 3.8 cm LVIDd: 4.9 cm LA dimension: 4.0 cm LVIDs: 2.9 cm ACS: 1.1 cm LVPWd: 1.3 cm EDV(Teich): 111.5 ml LVOT diam: 2.3 cm ESV(Teich): 33.1 ml LAV (MOD-bp): 132.0 ml RV S Leonides: 19.1 cm/sec Doppler Measurements & Calculations MV E max leonides: 84.9 cm/sec MVA(VTI): 3.7 cm2 MV dec time: 0.18 sec MV V2 max: 95.0 cm/sec MV max P.6 mmHg MV V2 mean: 50.6 cm/sec MV mean P.2 mmHg MV V2 VTI: 20.7 cm MV P1/2t max leonides: 87.4 cm/sec Ao V2 max: 237.9 cm/sec MV P1/2t: 52.5 msec Ao max P.9 mmHg Ao V2 mean: 171.0 cm/sec MVA(P1/2t): 4.2 cm2 Ao mean P.6 mmHg MV dec slope: 487.8 cm/sec2 Ao V2 VTI: 46.6 cm LUCIAN(I,D): 1.6 cm2 LUCIAN(V,D): 1.8 cm2 LV V1 max P.2 mmHg SV(LVOT): 76.8 ml LV V1 mean P.8 mmHg LV V1 max: 102.0 cm/sec LV V1 mean: 61.7 cm/sec LV V1 VTI: 18.0 cm TR max leonides: 257.9 cm/sec PA V2 max: 103.2 cm/sec TR max P.0 mmHg PA max P.3 mmHg PA acc slope: 411.2 cm/sec2 PA acc time: 0.11 sec Med Peak E' Leonides: 6.9 cm/sec PA pr(Accel): 31.5 mmHg Med E/e': 12.3 Lat Peak E' Leonides: 12.1 cm/sec Lat E/e': 7.0 Tech Comments TDS. Patient restless and scanned supine. Left Ventricle There is moderate concentric left ventricular hypertrophy. Left ventricular systolic function is norm al. Ejection Fraction = 65%. The transmitral spectral Doppler flow pattern is suggestive of restrictive physiology. Right Ventricle The right ventricle is normal in size and function. Atria The left atrium is moderately dilated. The right atrium is moderately dilated. Mitral Valve There is moderate mitral annular calcification. Calcified mitral apparatus. There is no mitral valve stenosis. There is trace to mild mitral regurgitation. Tricuspid Valve There is mild to moderate tricuspid valve thickening. There is mild to moderate tricuspid regurgitati on. There is mild pulmonary hypertension. Right ventricular systolic pressure is elevated at 44 mmhg. Assuming the RA pressure is 15 mmHg. Aortic Valve There is moderate aortic sclerosis.;. Mild valvular aortic stenosis. The calculated aortic valve area using the continuity equation is 1.6 cm2. Aortic max pressure gradient= 22.9. Aortic mean pressure gradient = 13.6. Mild aortic regurgitation. Pulmonic Valve The pulmonic valve is not well seen, but is grossly normal. Great Vessels The aortic root is normal size. Pericardium/Pleura There is no pericardial effusion. Interpretation Summary There is moderate concentric left ventricular hypertrophy. Left ventricular systolic function is norm al. Ejection Fraction = 65%. The right ventricle is normal in size and function. The left atrium is moderately dilated. The right atrium is moderately dilated. There is moderate aortic sclerosis.; Mild aortic regurgitation. Mild valvular aortic stenosis. The calculated aortic valve area using the continuity equation is 1.6 cm2. Aortic max pressure gradient= 22.9. Aortic mean pressure gradient= 13.6 There is moderate mitral annular calcification. Calcified mitral apparatus. There is no mitral valve stenosis. There is trace to mild mitral regurgitation. There is mild to moderate tricuspid valve thickening. There is mild to moderate tricuspid regurgitati on. There is mild pulmonary hypertension. MD Joann Lazo 11/22/2019 05:01 PM
[2019-11-22] MEDS ORDERED: LORazepam 2 MG/ML SDV VIAL IVPUSH ONE (19:59)
[2019-11-22] MEDS: CHLORHEXIDINE GLUCONATE 4% CLEANSER FOR DECOLONIZATION TP SCH (21:02)
[2019-11-22] MEDS: BUDESONIDE/FORMETEROL FUMARATE 80/4.5 mcg INHALER IH SCH (21:02)
[2019-11-22] MEDS: MUPIROCIN 2% TOPICAL OINTMENT FOR DECOLONIZATION NS SCH (21:02)
[2019-11-22] MEDS: ATORVASTATIN CA 10 MG TABLET (FP) PO SCH (21:02)
[2019-11-23] MEDS ORDERED: LORazepam 2 MG/ML SDV VIAL IVPUSH PRN (00:06)
[2019-11-23 06:36] LABS: BASO % 0.8 % (0-2.0); EOS % 1.5 % (0-4.5); HEMATOCRIT 40.5 % (35.4-49); HEMOGLOBIN 13.6 GM/dL (11.7-16.9); LYMPH % 16.3 % (8-40); MCH 33.1 pg (25.7-33.7); MCHC 33.6 g/dl (32.0-35.9); MEAN CELL VOLUME 98.7 fl (80-96); MEAN PLT VOLUME 9.6 fl (7.5-11.1); MONO % 11.7 % (3.8-10.2); NEUT % 69.7 % (42.8-82.8); PLATELET COUNT 225 K/MM3 (134-434); RDW 12.6 % (11.9-15.9); WHITE BLOOD COUNT 8.6 K/mm3 (4.0-10.0)
[2019-11-23] MEDS ORDERED: LEVOTHYROXINE NA 100 MCG TABLET (FP) PO SCH (07:00)
[2019-11-23 07:08] LABS: BLOOD UREA NITROGEN 34.6 mg/dL (7-18); CALCIUM 8.9 mg/dL (8.5-10.1); CREATININE 1.2 mg/dL (0.55-1.3); MAGNESIUM 2.3 mg/dL (1.8-2.4); PHOSPHOROUS 2.8 mg/dL (2.5-4.9)
[2019-11-23] MEDS ORDERED: PT OWN MED DRAWER 7, Y5N ONE (09:59)
[2019-11-23] MEDS ORDERED: PANTOPRAZOLE 40 MG TABLET PO SCH (10:00)
[2019-11-23] MEDS: MUPIROCIN 2% TOPICAL OINTMENT FOR DECOLONIZATION NS SCH (10:03)
[2019-11-23] MEDS: metoPROLOL SUCCINATE 25 MG TAB.SR.24H (FP) PO SCH (10:03)
[2019-11-23] MEDS ORDERED: LISINOPRIL 5 MG TABLET (FP) PO SCH (11:30)
[2019-11-23] MEDS: BUDESONIDE/FORMETEROL FUMARATE 80/4.5 mcg INHALER IH SCH (11:46)
--- NOTE | 2019-11-23 12:02 | PN ---
Teaching Attending Note Name of Resident: Michelle Juárez ATTENDING PHYSICIAN STATEMENT I saw and evaluated the patient. I reviewed the resident's note and discussed the case with the resident. I agree with the resident's findings and plan as documented. SUBJECTIVE: Pt seen and examined in the ICU. Agitated overnight. Repeat CT head showing no change. OBJECTIVE: Vital Signs Period Temp Pulse Resp BP Sys/Yañez Pulse Ox Last 24 Hr 97.5 F-98.3 F 69-101 16-22 91-152/63-98 97-100 Intake & Output 11/20/19 11/21/19 11/22/19 11/23/19 23:59 23:59 23:59 23:59 Intake Total 650 300 Output Total 450 Balance 200 300 Weight 90.718 kg 90.718 kg Gen: NAD at rest Heart: RRR Lung: decreased breath sounds at the bases Abd: soft, nontender Ext: no edema CBC, BMP 11/23/19 05:43 11/23/19 05:43 Active Medications Albuterol/Ipratropium (Duoneb -) 1 amp NEB Q4H PRN PRN Reason: WHEEZING Atorvastatin Calcium (Lipitor -) 10 mg PO HS [facility] Last Admin: 11/22/19 21:02 Dose: Not Given Documented by: Budesonide/Formoterol Fumarate (Symbicort 80/4.5mcg -) 2 puff IH BID [facility] Last Admin: 11/23/19 11:46 Dose: 2 puff Documented by: Chlorhexidine Gluconate (Hibiclens For Decolonization -) 1 applic TP HS [facility] Last Admin: 11/22/19 21:02 Dose: Not Given Documented by: Levothyroxine Sodium (Synthroid -) 100 mcg PO 0700 [facility] Last Admin: 11/23/19 07:13 Dose: Not Given Documented by: Lisinopril (Prinivil) 5 mg PO DAILY [facility] Last Admin: 11/23/19 11:49 Dose: 5 mg Documented by: Metoprolol Succinate (Toprol Xl -) 50 mg PO DAILY [facility] Last Admin: 11/23/19 10:03 Dose: 50 mg Documented by: Mupirocin (Bactroban Ointment (For Decolonization) -) 1 applic NS BID [facility] Stop: 11/27/19 21:59 Last Admin: 11/23/19 10:03 Dose: 1 applic Documented by: Pantoprazole Sodium (Protonix -) 40 mg PO DAILY [facility] Last Admin: 11/23/19 10:03 Dose: 40 mg Documented by: Quetiapine Fumarate (Seroquel -) 12.5 mg PO HS [facility] ASSESSMENT AND PLAN: s/p Fall Small Traumatic Intracranial Hemorrhage Atrial Fibrillation LV Systolic Dysfunction Acute Kidney Injury HTN Hyperlipidemia Hypothyroidism - neuro checks - hold all anticoagulation, antiplatelets - monitor urine output, creatinine - DVT prophylaxis - can monitor on telemetry pending neuro f/u
--- NOTE | 2019-11-23 12:08 | HOSP ---
Subjective - Review of Symptoms Events since last encounter: Denies and symptoms. Confused at baseline. Physical Examination Vital Signs: Vital Signs Temperature 98.3 F 11/23/19 08:00 Pulse Rate 96 H 11/23/19 10:00 Respiratory Rate 20 11/23/19 10:00 Blood Pressure 131/80 11/23/19 10:00 O2 Sat by Pulse Oximetry (%) 98 11/23/19 08:00 Constitutional: Yes: No Distress, Calm Eyes: Yes: WNL, EOM Intact HENT: Yes: Atraumatic, Normocephalic Neck: Yes: Supple Cardiovascular: Yes: Regular Rate and Rhythm Respiratory: Yes: CTA Bilaterally Gastrointestinal: Yes: Soft Renal/: Yes: Incontinence Edema: No Neurological: Yes: Alert, Confusion, Other (oriented to person, knows he's in a hospital but doesn't say correct one, not oriented to time.). 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 He presented to the ED s/p unwitnessed fall from his bed. CT head showed small of amount of subarachnoid blood within the sulci of the convexity of the brain bilaterally. Patient was admitted to ICU for further management and monitoring. BP was monitored and neuro checks done overnight with no changes. Repeat head CT this AM showed bleed has been stable. On admission, the patient was also found to have CASIE, which has since improved with IVF (Cr baseline 1.1). His lisinopril and diuretics were held and nephro is following (Dr. Judge). Lisinopril was restarted this morning but we have deferred the decision of when to continue diuretics to nephro. Patient's eliquis should continue to be held for at least 1 week unless otherwise specified by neurology. The patient also became very agitated last night and kept trying to get out of bed and was very confused, this is the patient's baseline in the evenings. Ativan was given last night for agitation. For more long wall mining machine tender treatment, the patient was started on 12.5 of seroquel HS for this evening. QTc 437, consider repeat EKG tomorrow if primary team decides to keep on the seroquel. Patient now stable for downgrade from ICU to Tele Visit type - Medication Review Med list reviewed for High Risk Meds patients 65 and older: Yes - Emergency Visit Emergency Visit: Yes ED Registration Date: 11/22/19 Care time: The patient presented to the Emergency Department on the above date and was hospitalized for further evaluation of their emergent condition. - New Patient This patient is new to me today: No - Critical Care Critical Care patient: Yes Total Critical Care Time (in minutes): 35 Critical Care Statement: The care of this patient involved high complexity decision making to prevent further life threatening deterioration of the patient's condition and/or to evaluate & treat vital organ system(s) failure or risk of failure.
--- NOTE | 2019-11-23 13:42 | HOSP ---
Subjective - Review of Symptoms Events since last encounter: ACCEPTANCE NOTE Pt was admitted for subarachnoid hemorrhage (on Eliquis) following an unwitnessed fall and observed in ICU for frequent neuro checks. CT today does not show any gross change. Pt also had CASIE which improved with IV hydration. Pt is able to be monitored in tele for continued neuro checks. Seroquel and Pili Vest will be continued for agitation. Awake and alert, in no acute distress CTAB RRR, no murmur moves all 4 extremities Physical Examination Vital Signs: Vital Signs Temperature 98.3 F 11/23/19 08:00 Pulse Rate 96 H 11/23/19 10:00 Respiratory Rate 11/23/19 10:00 Blood Pressure 131/80 11/23/19 10:00 O2 Sat by Pulse Oximetry (%) 98 11/23/19 08:00 Labs: CBC, BMP 11/23/19 05:43 11/23/19 05:43 Visit type - Medication Review Med list reviewed for High Risk Meds patients 65 and older: Yes - Emergency Visit Emergency Visit: Yes ED Registration Date: 11/22/19 Care time: The patient presented to the Emergency Department on the above date and was hospitalized for further evaluation of their emergent condition. - New Patient This patient is new to me today: Yes Date on this admission: 11/23/19 - Critical Care Critical Care patient: No
--- NOTE | 2019-11-23 14:15 | PN ---
Progress Note, SENIOR SOFTWARE DEVELOPMENT ENGINEER - Note Progress Note: Selected Entries 11/23/19 11/23/19 11/23/19 00:00 02:00 04:00 Temperature 97.5 F L Pulse Rate 84 73 69 Blood Pressure 91/64 109/63 134/75 O2 Sat by Pulse 97 Oximetry (%) 11/23/19 11/23/19 11/23/19 06:00 08:00 09:00 Temperature 98.0 F 98.3 F Pulse Rate 101 H 98 H Blood Pressure 130/89 152/98 O2 Sat by Pulse 97 98 98 Oximetry (%) 11/23/19 11/23/19 10:00 12:00 Temperature 98.0 F Pulse Rate 96 H 81 Blood Pressure 131/80 141/66 O2 Sat by Pulse 96 Oximetry (%) Dys puree/nectar Aspiration precautions
--- NOTE | 2019-11-23 14:37 | PN ---
Progress Note, Physician History of Present Illness: Seen and examined at the bedside awake and alert but confused no overnight events on IVF repeat CT head showed no change in bleed - Current Medication List Current Medications: Active Medications Albuterol/Ipratropium (Duoneb -) 1 amp NEB Q4H PRN PRN Reason: WHEEZING Atorvastatin Calcium (Lipitor -) 10 mg PO [facility] Last Admin: 11/22/19 21:02 Dose: Not Given Documented by: Budesonide/Formoterol Fumarate (Symbicort 80/4.5mcg -) 2 puff IH BID [facility] Last Admin: 11/23/19 11:46 Dose: 2 puff Documented by: Chlorhexidine Gluconate (Hibiclens For Decolonization -) 1 applic TP [facility] Last Admin: 11/22/19 21:02 Dose: Not Given Documented by: Levothyroxine Sodium (Synthroid -) 100 mcg PO 0700 [facility] Last Admin: 11/23/19 07:13 Dose: Not Given Documented by: Lisinopril (Prinivil) 5 mg PO DAILY [facility] Last Admin: 11/23/19 11:49 Dose: 5 mg Documented by: Metoprolol Succinate (Toprol Xl -) 50 mg PO DAILY [facility] Last Admin: 11/23/19 10:03 Dose: 50 mg Documented by: Mupirocin (Bactroban Ointment (For Decolonization) -) 1 applic NS BID [facility] Stop: 11/27/19 21:59 Last Admin: 11/23/19 10:03 Dose: 1 applic Documented by: Pantoprazole Sodium (Protonix -) 40 mg PO DAILY [facility] Last Admin: 11/23/19 10:03 Dose: 40 mg Documented by: Quetiapine Fumarate (Seroquel -) 12.5 mg PO [facility] - Objective Vital Signs: Vital Signs Temperature 98.0 F 11/23/19 12:00 Pulse Rate 67 11/23/19 14:00 Respiratory Rate 16 11/23/19 14:00 Blood Pressure 101/63 11/23/19 14:00 O2 Sat by Pulse Oximetry (%) 93 L 11/23/19 14:00 Constitutional: Yes: No Distress Neck: Yes: Supple Cardiovascular: Yes: Regular Rate and Rhythm Respiratory: Yes: Regular Gastrointestinal: Yes: Soft Genitourinary: No: Bladder Distention Extremities: No: Cyanosis Edema: No Neurological: Yes: Alert, Confusion Labs: CBC, BMP 11/23/19 05:43 11/23/19 05:43 INR, PTT INR 1.67 (0.83-1.09) H 11/22/19 00:20 Assessment/Plan 88 year old male with history of atrial fibrillation on Eliquis, hypertension, heart failrue, coronary artery disease, throat cancer, and hypothyroidism who presented s/p fall and found to have a subarachnoid hemorrhage and acute kidney injury with Cr of 2.2. 1. Acute kidney injury likely secondary to volume depletion +/- urinary retention 2. Subarachnoid hemorrhage 3. Atrial fibrillation on Eliquis 4. Hypertension 5. Coronary artery disease 6. Mild hyperkalemia 7. Hypermagnesemia in setting of renal insufficiency Renal function is improved. CT imaging of the abdomen showed no evidence of hydronephrosis Hold diuretics for now, now off IV fluids as well. Give PRN Lasix as needed for any signs of respiratory distress. Neurosurgery and neurology follow up Maintain Blood pressure < 160 systolic and < 110 diastolic Js Judge DO
[2019-11-23] MEDS: ACETAMINOPHEN 500 MG TABLET (FP) PO PRN (17:39)
--- NOTE | 2019-11-23 18:05 | PN ---
Progress Note, Physician History of Present Illness: Events noted Chart reviewed Ciera baum No other complaint Head CT with no change - Current Medication List Current Medications: Active Medications Acetaminophen (Tylenol -) 1,000 mg PO Q6H PRN PRN Reason: PAIN LEVEL 1-5 Last Admin: 11/23/19 17:39 Dose: 1,000 mg Documented by: Albuterol/Ipratropium (Duoneb -) 1 amp NEB Q4H PRN PRN Reason: WHEEZING Atorvastatin Calcium (Lipitor -) 10 mg PO [facility] Last Admin: 11/22/19 21:02 Dose: Not Given Documented by: Chlorhexidine Gluconate (Hibiclens For Decolonization -) 1 applic TP [facility] Last Admin: 11/22/19 21:02 Dose: Not Given Documented by: Levothyroxine Sodium (Synthroid -) 100 mcg PO 0700 [facility] Last Admin: 11/23/19 07:13 Dose: Not Given Documented by: Lisinopril (Prinivil) 5 mg PO DAILY [facility] Last Admin: 11/23/19 11:49 Dose: 5 mg Documented by: Metoprolol Succinate (Toprol Xl -) 25 mg PO DAILY [facility] Mupirocin (Bactroban Ointment (For Decolonization) -) 1 applic NS BID [facility] Stop: 11/27/19 21:59 Last Admin: 11/23/19 10:03 Dose: 1 applic Documented by: Pantoprazole Sodium (Protonix -) 40 mg PO DAILY [facility] Last Admin: 11/23/19 10:03 Dose: 40 mg Documented by: Quetiapine Fumarate (Seroquel -) 12.5 mg PO [facility] - Objective Vital Signs: Vital Signs Temperature 98.5 F 11/23/19 16:00 Pulse Rate 78 11/23/19 16:00 Respiratory Rate 11/23/19 16:00 Blood Pressure 110/62 11/23/19 16:00 O2 Sat by Pulse Oximetry (%) 94 L 11/23/19 16:00 Constitutional: Yes: Well Nourished Eyes: Yes: WNL Neurological: Yes: Oriented, Aphasia, Cran Nerves II-XII Intact, Pre-Existing Deficit Labs: CBC, BMP 11/23/19 05:43 11/23/19 05:43 INR, PTT INR 1.67 (0.83-1.09) H 11/22/19 00:20 Problem List - Problems (1) Subarachnoid hemorrhage Code(s): I60.9 - NONTRAUMATIC SUBARACHNOID HEMORRHAGE, UNSPECIFIED (2) Acute kidney injury Code(s): N17.9 - ACUTE KIDNEY FAILURE, UNSPECIFIED (3) Arterial insufficiency of lower extremity Code(s): I73.9 - PERIPHERAL VASCULAR DISEASE, UNSPECIFIED (4) Atrial fibrillation Code(s): I48.91 - UNSPECIFIED ATRIAL FIBRILLATION Qualifiers: Atrial fibrillation type: chronic Assessment/Plan Fall precautions I dont think I will start Elleuis again Seroquel 25 mg po qhs
[2019-11-23] MEDS ORDERED: QUEtiapine FUMARATE 25 MG TABLET PO SCH (22:00)
--- NOTE | 2019-11-23 22:16 | PN ---
Teaching Attending Note Name of Resident: Raissa Elias ATTENDING PHYSICIAN STATEMENT I saw and evaluated the patient. I reviewed the resident's note and discussed the case with the resident. I agree with the resident's findings and plan as documented. SUBJECTIVE: Patient seen and examined at bedside, admitted for SAH, now moving all 4 ext, phonating, stable for downgrade. VSS. OBJECTIVE: GENERAL: Tired appearing, engaging in conversation, AAox1 HEENT: Normal with no signs of trauma. EOMI, dry MM, neck supple. LUNGS: Decreased BS at bases, poor inspiratory effort, 99% on RA HEART: Regular rate and rhythm, S1, S2 without murmur ABDOMEN: Soft, obese, nontender, distended, normoactive bowel sounds, no guarding, no rebound EXTREMITIES: 2+ dorsal pedal pulses , warm, well-perfused. NEUROLOGICAL: Normal speech, gait not observed. No focal deficits appreciated. Good strength UE and LE although overall deconditioned. PSYCH: slightly confused, calm SKIN: Warm, dry, normal turgor, no rashes or lesions noted Vital Signs (72 hours) 11/21/19 11/22/19 11/22/19 22:33 01:33 07:01 Temperature 98.1 F 98.2 F Pulse Rate 60 Pulse Rate [ 99 H 99 H Left Apical] Respiratory 18 18 18 Rate Blood Pressure 99/59 L Blood Pressure 117/79 118/79 [Right Arm] O2 Sat by Pulse 94 L 98 96 Oximetry (%) 11/22/19 11/22/19 11/22/19 11:00 11:31 13:59 Temperature 98.1 F 98.1 F Pulse Rate 82 Pulse Rate [ 88 97 H Left Apical] Respiratory 18 20 18 Rate Blood Pressure 133/75 Blood Pressure 121/70 119/78 [Right Arm] O2 Sat by Pulse 100 98 100 Oximetry (%) 11/22/19 11/22/19 11/22/19 14:00 15:00 18:00 Temperature 98.0 F 98.2 F 98 F Pulse Rate 82 98 H 88 Pulse Rate [ Left Apical] Respiratory 22 H 22 H 22 H Rate Blood Pressure 135/75 151/73 110/72 Blood Pressure [Right Arm] O2 Sat by Pulse 98 98 98 Oximetry (%) 11/22/19 11/23/19 11/23/19 21:00 00:00 02:00 Temperature 97.5 F L Pulse Rate 84 73 Pulse Rate [ Left Apical] Respiratory 22 H 16 Rate Blood Pressure 91/64 109/63 Blood Pressure [Right Arm] O2 Sat by Pulse 97 97 Oximetry (%) 11/23/19 11/23/19 11/23/19 04:00 06:00 08:00 Temperature 98.0 F 98.3 F Pulse Rate 69 101 H 98 H Pulse Rate [ Left Apical] Respiratory 16 16 20 Rate Blood Pressure 134/75 130/89 152/98 Blood Pressure [Right Arm] O2 Sat by Pulse 97 98 Oximetry (%) 11/23/19 11/23/19 11/23/19 09:00 10:00 12:00 Temperature 98.0 F Pulse Rate 96 H 81 Pulse Rate [ Left Apical] Respiratory 20 20 10 Rate Blood Pressure 131/80 141/66 Blood Pressure [Right Arm] O2 Sat by Pulse 98 96 Oximetry (%) 11/23/19 11/23/19 11/23/19 14:00 16:00 18:00 Temperature 98.5 F Pulse Rate 67 78 86 Pulse Rate [ Left Apical] Respiratory 16 20 21 H Rate Blood Pressure 101/63 110/62 94/52 L Blood Pressure [Right Arm] O2 Sat by Pulse 93 L 94 L 97 Oximetry (%) 11/23/19 20:00 Temperature Pulse Rate 72 Pulse Rate [ Left Apical] Respiratory 16 Rate Blood Pressure 95/45 L Blood Pressure [Right Arm] O2 Sat by Pulse 93 L Oximetry (%) Laboratory Results - last 24 hr 11/22/19 11/23/19 11/23/19 00:20 05:43 05:43 WBC 8.6 RBC 4.10 Hgb 13.6 Hct 40.5 MCV 98.7 H MCH 33.1 MCHC 33.6 RDW 12.6 Plt Count 225 MPV 9.6 Absolute Neuts (auto) 6.0 Neutrophils % 69.7 Lymphocytes % 16.3 D Monocytes % 11.7 H Eosinophils % 1.5 Basophils % 0.8 Nucleated RBC % 0 Sodium 138 Potassium 5.0 Chloride 104 Carbon Dioxide 27 Anion Gap 7 L BUN 34.6 H Creatinine 1.2 Est GFR (CKD-EPI)AfAm 62.20 Est GFR (CKD-EPI)NonAf 53.67 Random Glucose 107 H Calcium 8.9 Phosphorus 2.8 Magnesium 2.3 Creatine Kinase 237 Creatine Kinase Index 1.4 CK-MB (CK-2) 3.5 COVID-19 (DESIRAE) Not detected Home Medications Medication Instructions Recorded Apixaban [Eliquis] 5 mg PO BID 03/13/17 Lisinopril [Zestril] 5 mg PO DAILY 03/13/17 Spironolactone [Aldactone -] 25 mg PO DAILY 03/13/17 Furosemide [Lasix] 20 mg PO DAILY 11/01/19 Ipratropium/Albuterol Sulfate 1 amp IH Q4H PRN 11/01/19 [Iprat-Albut 0.5-3(2.5) mg/3 ml] Levothyroxine [Synthroid -] 100 mcg PO DAILY 11/01/19 Pravastatin Sodium 10 mg PO HS 11/01/19 Acetaminophen [Tylenol -] 1,000 mg PO Q6H PRN 11/23/19 Metoprolol Succinate [Toprol Xl] 25 mg PO DAILY 11/23/19 Current Medications Generic Name Dose Route Start Last Admin Trade Name Freq PRN Reason Stop Dose Admin Acetaminophen 1,000 mg 11/23/19 16:53 11/23/19 17:39 Tylenol - PO 1,000 mg Q6H PRN Administration PAIN LEVEL 1-5 Albuterol/Ipratropium 1 amp 11/22/19 12:05 Duoneb - NEB Q4H PRN WHEEZING Atorvastatin Calcium 10 mg 11/22/19 22:00 11/22/19 21:02 Lipitor - PO Not Given HS [facility] Chlorhexidine Gluconate 1 applic 11/22/19 22:00 11/22/19 21:02 Hibiclens For Decolonization - TP Not Given HS NELSY Levothyroxine Sodium 100 mcg 11/23/19 07:00 11/23/19 07:13 Synthroid - PO Not Given 0700 NELSY Lisinopril 5 mg 11/23/19 11:30 11/23/19 11:49 Prinivil PO 5 mg DAILY NELSY Administration Metoprolol Succinate 25 mg 11/24/19 10:00 Toprol Xl - PO DAILY NELSY Mupirocin 1 applic 11/22/19 22:00 11/23/19 10:03 Bactroban Ointment (For Decolonization) - NS 11/27/19 21:59 1 applic BID NELSY Administration Pantoprazole Sodium 40 mg 11/23/19 10:00 11/23/19 10:03 Protonix - PO 40 mg DAILY NELSY Administration Quetiapine Fumarate 12.5 mg 11/23/19 22:00 Seroquel - PO HS NELSY ASSESSMENT AND PLAN: 88 M S/p SAH Dementia HTN HFrEF Afib on Eliquis Prior Etoh abuse Gout h/o recurrent UTIs HLD Hypothyroidism COVId negative COPD Plan: Continue neurochecks, control BP <150 systolic HOB elevation, PT referral NSG following no acute intervention Hold all blood thinners, may be a candidate for Watchman placement for Afib Cont. Statin DVT ppx: SCD
[2019-11-24] MEDS: CHLORHEXIDINE GLUCONATE 4% CLEANSER FOR DECOLONIZATION TP SCH (00:13)
[2019-11-24] MEDS: MUPIROCIN 2% TOPICAL OINTMENT FOR DECOLONIZATION NS SCH (00:13)
[2019-11-24] MEDS: ACETAMINOPHEN 500 MG TABLET (FP) PO PRN ×3 (00:21→22:08)
[2019-11-24] MEDS: ATORVASTATIN CA 10 MG TABLET (FP) PO SCH ×2 (00:21→22:08)
[2019-11-24] MEDS ORDERED: ALBUTEROL SO4 2.5/IPRATROPIUM 0.5 INH SOL 3 ML VIAL.NEB. NEB PRN (01:17)
[2019-11-24] MEDS: LEVOTHYROXINE NA 100 MCG TABLET (FP) PO SCH (06:45)
[2019-11-24 08:36] LABS: POTASSIUM 4.6 mmol/L (3.5-5.1)
[2019-11-24 09:13] LABS: BLOOD UREA NITROGEN 37.6 mg/dL (7-18); CREATININE 1.4 mg/dL (0.55-1.3); MAGNESIUM 2.4 mg/dL (1.8-2.4); PHOSPHOROUS 3.3 mg/dL (2.5-4.9)
--- NOTE | 2019-11-24 09:48 | PN ---
Physical Exam: SUBJECTIVE: Patient seen and examined at bedside- patient alert and oriented his only complaint is that he is having slight pain in his toes; patient was started on seroquel last night by neuro; he denies any CP/SOB/N/V OBJECTIVE: Vital Signs Period Temp Pulse Resp BP Sys/Yañez Pulse Ox Last 24 Hr 97.4 F-98.5 F 67-96 10-21 92-141/45-80 93-100 GENERAL: The patient is awake, alert, and fully oriented, in no acute distress. EYES: PEERLA: EOMI no scleral icterus NECK: no JVD; no lymphadenopathy LUNGS: decreased breath sounds at the bases b/l HEART: Regular rate and rhythm, S1, S2 without murmur, rub or gallop. ABDOMEN: Soft, NT ND +BS in all 4 quadrants EXTREMITIES: 2+ pulses, warm, well-perfused, no edema. NEUROLOGICAL: Cranial nerves II through XII grossly intact. Normal speech, gait not observed 4/5 strength BL UE LE; sensation intact throughout. PSYCH: Normal mood, normal affect. SKIN: Warm, dry, normal turgor, no rashes or lesions noted Laboratory Results - last 24 hr 11/24/19 06:25 Sodium 138 Potassium 4.6 Chloride 103 Carbon Dioxide 26 Anion Gap 9 BUN 37.6 H Creatinine 1.4 H Est GFR (CKD-EPI)AfAm 51.62 Est GFR (CKD-EPI)NonAf 44.54 Random Glucose 81 Calcium 9.0 Phosphorus 3.3 Magnesium 2.4 Active Medications Generic Name Dose Route Start Last Admin Trade Name Freq PRN Reason Stop Dose Admin Acetaminophen 1,000 mg 11/23/19 16:53 11/24/19 06:45 Tylenol - PO 1,000 mg Q6H PRN Administration PAIN LEVEL 1-5 Albuterol/Ipratropium 1 amp 11/24/19 01:17 Duoneb - NEB Q4H PRN WHEEZING Atorvastatin Calcium 10 mg 11/24/19 22:00 Lipitor - PO HS NELSY Ceftriaxone Sodium 1 gm/ 50 mls @ 200 mls/hr 11/24/19 10:00 Dextrose IVPB DAILY NELSY Protocol Levothyroxine Sodium 100 mcg 11/24/19 07:00 11/24/19 06:45 Synthroid - PO 100 mcg 0700 NELSY Administration Lisinopril 5 mg 11/24/19 10:00 Prinivil PO DAILY NELSY Metoprolol Succinate 25 mg 11/24/19 10:00 Toprol Xl - PO DAILY NELSY Pantoprazole Sodium 40 mg 11/24/19 10:00 Protonix - PO DAILY NELSY Quetiapine Fumarate 12.5 mg 11/24/19 22:00 Seroquel - PO HS [facility] ASSESSMENT/PLAN: 80F with pmhx of A. fib on Eliquis, CVA, HTN/HLD, gout, hypothyroidism, heart failure with reduced ejection fraction, recent admission for altered mental status and delirium, presents with subarachnoid hemorrhage after an unwitnessed fall at [facility]. #Traumatic subarachnoid hemorrhage, patient on Eliquis Neurology on board: Appreciate recs Per neurosurg, no acute surgical intervention needed at this time. Hold Keppra Hold Eliquis Repeat head CT shows no change -fall precautions #Prerenal CASIE: improvingi. Creatinine 2.2 on admission, 1.4 this AM -IV fluids Trend creatinine Hold lisinopril, spironolactone, Lasix -nephro on board #UTI UA negative[facility] + for nonlactose fermenting gram negative bacilli -will start ceftriaxone #History of seizures; No new episodes. -Per neuro, hold home Keppra #Atrial fibrillation; Rate-controlled. -Hold home Eliquis in setting of SAH Cont home med: Metoprolol Succinate 50 mg QD #CHF Holding lisinopril, spironolactone, Lasix in setting of CASIE #HTN/HLD; Hold home meds Lisinopril, Spironolactone, Lasix due to CASIE Cont home med: Metoprolol succinate 50 QD, Atorvastatin 10 HS #History of hypothyroidism; Cont home med: Levothyroxine 100 mcg QD #Prophylaxis DVT: SCDs GI: Protonix 40 mg PO QD dispo: SW looking for new SNF- and patient needs to be off altaf for 24 hours Problem List - Problems (1) Acute kidney injury Code(s): N17.9 - ACUTE KIDNEY FAILURE, UNSPECIFIED (2) SAH (subarachnoid hemorrhage) Code(s): I60.9 - NONTRAUMATIC SUBARACHNOID HEMORRHAGE, UNSPECIFIED (3) Subarachnoid hemorrhage Code(s): I60.9 - NONTRAUMATIC SUBARACHNOID HEMORRHAGE, UNSPECIFIED Visit type - Emergency Visit Emergency Visit: Yes ED Registration Date: 11/22/19 Care time: The patient presented to the Emergency Department on the above date and was hospitalized for further evaluation of their emergent condition. - New Patient This patient is new to me today: Yes Date on this admission: 11/24/19 - Critical Care Critical Care patient: No - Medication Review Med list reviewed for High Risk Meds patients 65 and older: Yes ATTENDING PHYSICIAN STATEMENT I saw and evaluated the patient. I reviewed the resident's note and discussed the case with the resident. I agree with the resident's findings and plan as documented. SUBJECTIVE: OBJECTIVE: ASSESSMENT AND PLAN:
[2019-11-24] MEDS ORDERED: MUPIROCIN 2% TOPICAL OINTMENT FOR DECOLONIZATION NS SCH (10:00)
[2019-11-24] MEDS ORDERED: DEXTROSE 5%-WATER - 50 ML IVPB ONE (10:31)
[2019-11-24] MEDS ORDERED: cefTRIAXone SODIUM 1 GM VIAL ONE (10:31)
--- NOTE | 2019-11-24 10:32 | PN ---
Progress Note, FINANCIAL SALES REPRESENTATIVE - Note Progress Note: Selected Entries 11/24/19 11/24/19 11/24/19 00:00 01:00 06:00 Respiratory 17 17 18 Rate Blood Pressure 107/60 92/47 L 92/60 Blood Pressure 77 Mean Blood Pressure Supine Supine Supine Position O2 Sat by Pulse 97 95 94 L Oximetry (%) Laboratory Tests 11/23/19 05:43 WBC 8.6 Puree diet with thickened liquids ordered. He tolerated diet, however appetite is poor in ICU. Pt now on Telemetry.
[2019-11-24] MEDS: PANTOPRAZOLE 40 MG TABLET PO SCH (10:37)
[2019-11-24] MEDS: CEFTRIAXONE 1 GM in DEXTROSE 5%-WATER - 50 ML IVPB SCH (10:37)
[2019-11-24] MEDS: metoPROLOL SUCCINATE 25 MG TAB.SR.24H (FP) PO SCH (10:37)
[2019-11-24] MEDS: LISINOPRIL 5 MG TABLET (FP) PO SCH (10:37)
--- NOTE | 2019-11-24 11:17 | PN ---
Teaching Attending Note Name of Resident: Phyllis Harper ATTENDING PHYSICIAN STATEMENT I saw and evaluated the patient. I reviewed the resident's note and discussed the case with the resident. I agree with the resident's findings and plan as documented. SUBJECTIVE: OBJECTIVE: ASSESSMENT AND PLAN: 80 year old female with a PMHx notable for Atrial fibrillation on Eliquis, CVA, HTN/HLD, gout, hypothyroidism, heart failure with reduced ejection fraction, recent admission for altered mental status and delirium, presents with subarachn oid hemorrhage after an unwitnessed fall #Traumatic subarachnoid hemorrhage, patient was on Eliquis Neurology on board: Appreciate recs Hold Eliquis Repeat head CT shows no change -fall precautions #Prerenal CASIE: improving with IV fluids Hold lisinopril, spironolactone, Lasix #UTI - On Rocephin #History of seizures; No new episodes. -Per neurology, hold home Keppra #Atrial fibrillation; Rate-controlled. -Hold home Eliquis in setting of SAH -Continue home med: Metoprolol Succinate 50 mg QD #CHF Holding lisinopril, spironolactone, Lasix in setting of CASIE #Prophylaxis DVT: SCDs GI: Protonix 40 mg PO QD Dispo: SW looking for new SNF
--- NOTE | 2019-11-24 12:57 | PN ---
Progress Note, Physician History of Present Illness: Seen and examined at the bedside awake but remains confused no overnight events off of IV fluids - Current Medication List Current Medications: Active Medications Acetaminophen (Tylenol -) 1,000 mg PO Q6H PRN PRN Reason: PAIN LEVEL 1-5 Last Admin: 11/24/19 06:45 Dose: 1,000 mg Documented by: Albuterol/Ipratropium (Duoneb -) 1 amp NEB Q4H PRN PRN Reason: WHEEZING Atorvastatin Calcium (Lipitor -) 10 mg PO [facility] Ceftriaxone Sodium 1 gm/ (Dextrose) 50 mls @ 200 mls/hr IVPB DAILY [facility]; Protocol Last Admin: 11/24/19 10:37 Dose: 200 mls/hr Documented by: Levothyroxine Sodium (Synthroid -) 100 mcg PO 0700 [facility] Last Admin: 11/24/19 06:45 Dose: 100 mcg Documented by: Lisinopril (Prinivil) 5 mg PO DAILY [facility] Last Admin: 11/24/19 10:37 Dose: Not Given Documented by: Metoprolol Succinate (Toprol Xl -) 25 mg PO DAILY [facility] Last Admin: 11/24/19 10:37 Dose: Not Given Documented by: Pantoprazole Sodium (Protonix -) 40 mg PO DAILY [facility] Last Admin: 11/24/19 10:37 Dose: 40 mg Documented by: Quetiapine Fumarate (Seroquel -) 12.5 mg PO [facility] - Objective Vital Signs: Vital Signs Temperature 97.5 F L 11/24/19 09:00 Pulse Rate 86 11/24/19 09:00 Respiratory Rate 18 11/24/19 09:00 Blood Pressure 93/59 L 11/24/19 09:00 O2 Sat by Pulse Oximetry (%) 95 11/24/19 09:00 Constitutional: Yes: No Distress, Calm HENT: Yes: Atraumatic Neck: Yes: Supple Cardiovascular: Yes: Regular Rate and Rhythm Respiratory: Yes: Regular, CTA Bilaterally Gastrointestinal: Yes: Soft Extremities: No: Cold, Cool, Cyanosis Edema: No Labs: CBC, BMP 11/23/19 05:43 11/24/19 06:25 INR, PTT INR 1.67 (0.83-1.09) H 11/22/19 00:20 Assessment/Plan 88 year old male with history of atrial fibrillation on Eliquis, hypertension, heart failrue, coronary artery disease, throat cancer, and hypothyroidism who presented s/p fall and found to have a subarachnoid hemorrhage and acute kidney injury with Cr of 2.2. 1. Acute kidney injury likely secondary to volume depletion +/- urinary retention 2. Subarachnoid hemorrhage 3. Atrial fibrillation on Eliquis 4. Hypertension 5. Coronary artery disease 6. Mild hyperkalemia 7. Hypermagnesemia in setting of renal insufficiency Renal function is improved from admission, likely reason Cr went from 1.2 to 1.4 is the addition of ACEi. Would continue ACEi for now. CT imaging of the abdomen showed no evidence of hydronephrosis Give PRN Lasix as needed for any signs of respiratory distress. Neurosurgery and neurology follow up Maintain Blood pressure < 160 systolic and < 110 diastolic Js Judge DO
--- NOTE | 2019-11-24 16:40 | PN ---
Progress Note (short form) - Note Progress Note: Patient awake and alert. No complaints. No pronator drift. No extinction to double simultaneous stimulation. Repeat Head CT stable. No acute Neurosurgery intervention indicated or planned.
[2019-11-24] MEDS ORDERED: CHLORHEXIDINE GLUCONATE 4% CLEANSER FOR DECOLONIZATION TP SCH (22:00)
[2019-11-24] MEDS: QUEtiapine FUMARATE 25 MG TABLET PO SCH (22:08)
[2019-11-25] MEDS: LEVOTHYROXINE NA 100 MCG TABLET (FP) PO SCH (06:15)
[2019-11-25 07:29] LABS: BASO % 0.4 % (0-2.0); EOS % 1.9 % (0-4.5); HEMATOCRIT 38.5 % (35.4-49); HEMOGLOBIN 12.9 GM/dL (11.7-16.9); LYMPH % 17.1 % (8-40); MCHC 33.5 g/dl (32.0-35.9); MEAN CELL VOLUME 98.4 fl (80-96); MEAN PLT VOLUME 9.6 fl (7.5-11.1); NEUT % 69.6 % (42.8-82.8); PLATELET COUNT 182 K/MM3 (134-434); RBC 3.91 M/mm3 (4.00-5.60); RDW 12.6 % (11.9-15.9); WHITE BLOOD COUNT 6.9 K/mm3 (4.0-10.0)
[2019-11-25 08:02] LABS: ALBUMIN 3.1 g/dl (3.4-5.0); BILIRUBIN,TOTAL 1.1 mg/dL (0.2-1); BLOOD UREA NITROGEN 30.4 mg/dL (7-18); CREATININE 1.3 mg/dL (0.55-1.3); PHOSPHOROUS 3.1 mg/dL (2.5-4.9); POTASSIUM 4.2 mmol/L (3.5-5.1); TOT PROT 6.9 g/dl (6.4-8.2)
[2019-11-25 08:05] LABS: CALCIUM 8.9 mg/dL (8.5-10.1); MAGNESIUM 2.1 mg/dL (1.8-2.4)
[2019-11-25] MEDS ORDERED: cefTRIAXone SODIUM 1 GM VIAL ONE (10:02)
[2019-11-25] MEDS ORDERED: DEXTROSE 5%-WATER - 50 ML IVPB ONE (10:02)
--- NOTE | 2019-11-25 10:23 | PN ---
Progress Note, FILING OR REGISTRY CLERK - Note Progress Note: Selected Entries 11/24/19 11/24/19 11/24/19 00:00 01:00 06:00 Respiratory 17 17 18 Rate Blood Pressure 107/60 92/47 L 92/60 Blood Pressure 77 Mean Blood Pressure Supine Supine Supine Position O2 Sat by Pulse 97 95 94 L Oximetry (%) Laboratory Tests 11/23/19 05:43 WBC 8.6 Selected Entries 11/24/19 11/24/19 11/24/19 00:00 01:00 06:00 Breakfast Diet Tolerated Lunch Supper Temperature Pulse Rate Blood Pressure O2 Sat by Pulse 97 95 94 L Oximetry (%) Oxygen Delivery Method Oxygen Flow Rate 11/24/19 11/24/19 11/24/19 09:00 10:36 15:00 Breakfast 100% Diet Tolerated Well Well Lunch 75% Supper Temperature Pulse Rate Blood Pressure O2 Sat by Pulse 95 Oximetry (%) Oxygen Delivery Nasal Cannula Method Oxygen Flow 2 Rate 11/24/19 11/24/19 11/24/19 18:09 19:09 21:00 Breakfast Diet Tolerated Well Lunch Supper 75% Temperature Pulse Rate Blood Pressure O2 Sat by Pulse 96 94 L Oximetry (%) Oxygen Delivery Room Air Method Oxygen Flow Rate 11/25/19 11/25/19 11/25/19 01:25 06:00 09:58 Breakfast 100% Diet Tolerated Well Lunch Supper Temperature 98 F 98.2 F Pulse Rate 78 85 Blood Pressure 120/57 L 138/79 O2 Sat by Pulse 94 L Oximetry (%) Oxygen Delivery Method Oxygen Flow Rate Laboratory Tests 11/25/19 06:42 WBC 6.9 Puree diet with nectar thickened liquids . Tolerating diet with good appetite.
--- NOTE | 2019-11-25 10:46 | PN ---
Progress Note, Physician History of Present Illness: seen on telemetry Clavicular alert oriented Follows command Okay attention span Eating breakfast Denies any headache. Denies any difficulty with vision - Current Medication List Current Medications: Active Medications Acetaminophen (Tylenol -) 1,000 mg PO Q6H PRN PRN Reason: PAIN LEVEL 1-5 Last Admin: 11/24/19 22:08 Dose: 1,000 mg Documented by: Albuterol/Ipratropium (Duoneb -) 1 amp NEB Q4H PRN PRN Reason: WHEEZING Atorvastatin Calcium (Lipitor -) 10 mg PO [facility] Last Admin: 11/24/19 22:08 Dose: 10 mg Documented by: Ceftriaxone Sodium 1 gm/ (Dextrose) 50 mls @ 200 mls/hr IVPB DAILY [facility]; Protocol Last Admin: 11/24/19 10:37 Dose: 200 mls/hr Documented by: Levothyroxine Sodium (Synthroid -) 100 mcg PO 0700 [facility] Last Admin: 11/25/19 06:15 Dose: 100 mcg Documented by: Lisinopril (Prinivil) 5 mg PO DAILY [facility] Last Admin: 11/24/19 10:37 Dose: Not Given Documented by: Metoprolol Succinate (Toprol Xl -) 25 mg PO DAILY [facility] Last Admin: 11/24/19 10:37 Dose: Not Given Documented by: Pantoprazole Sodium (Protonix -) 40 mg PO DAILY [facility] Last Admin: 11/24/19 10:37 Dose: 40 mg Documented by: Quetiapine Fumarate (Seroquel -) 12.5 mg PO [facility] Last Admin: 11/24/19 22:08 Dose: 12.5 mg Documented by: - Objective Vital Signs: Vital Signs Temperature 98.2 F 11/25/19 06:00 Pulse Rate 85 11/25/19 06:00 Respiratory Rate 18 11/25/19 06:00 Blood Pressure 138/79 11/25/19 06:00 O2 Sat by Pulse Oximetry (%) 94 L 11/25/19 06:00 Constitutional: Yes: Well Nourished Eyes: Yes: WNL Neurological: Yes: Alert, Babinski positive, Cran Nerves II-XII Intact Labs: CBC, BMP 11/25/19 06:42 11/25/19 06:42 INR, PTT INR 1.67 (0.83-1.09) H 11/22/19 00:20 Problem List - Problems (1) Subarachnoid hemorrhage Code(s): I60.9 - NONTRAUMATIC SUBARACHNOID HEMORRHAGE, UNSPECIFIED (2) Acute kidney injury Code(s): N17.9 - ACUTE KIDNEY FAILURE, UNSPECIFIED (3) Arterial insufficiency of lower extremity Code(s): I73.9 - PERIPHERAL VASCULAR DISEASE, UNSPECIFIED (4) Atrial fibrillation Code(s): I48.91 - UNSPECIFIED ATRIAL FIBRILLATION Qualifiers: Atrial fibrillation type: chronic Assessment/Plan fall precautions. No anticoagulation. Repeat CAT scan of the head on Thursday. We'll have a discussion with cardiology regarding future stroke prevention embolic event preventionwith antiplatelet treatment and risks of and the coagulation outweighs the benefit
[2019-11-25] MEDS: LISINOPRIL 5 MG TABLET (FP) PO SCH (11:13)
[2019-11-25] MEDS: CEFTRIAXONE 1 GM in DEXTROSE 5%-WATER - 50 ML IVPB SCH (11:13)
[2019-11-25] MEDS: PANTOPRAZOLE 40 MG TABLET PO SCH (11:13)
[2019-11-25] MEDS: metoPROLOL SUCCINATE 25 MG TAB.SR.24H (FP) PO SCH (11:13)
--- NOTE | 2019-11-25 12:34 | PN ---
Progress Note, Physician History of Present Illness: Seen and examined at the bedside awake but remains confused no overnight events Denies any pain or shortness of breath - Current Medication List Current Medications: Active Medications Acetaminophen (Tylenol -) 1,000 mg PO Q6H PRN PRN Reason: PAIN LEVEL 1-5 Last Admin: 11/24/19 22:08 Dose: 1,000 mg Documented by: Albuterol/Ipratropium (Duoneb -) 1 amp NEB Q4H PRN PRN Reason: WHEEZING Atorvastatin Calcium (Lipitor -) 10 mg PO [facility] Last Admin: 11/24/19 22:08 Dose: 10 mg Documented by: Ceftriaxone Sodium 1 gm/ (Dextrose) 50 mls @ 200 mls/hr IVPB DAILY [facility]; Protocol Last Admin: 11/25/19 11:13 Dose: 200 mls/hr Documented by: Levothyroxine Sodium (Synthroid -) 100 mcg PO 0700 [facility] Last Admin: 11/25/19 06:15 Dose: 100 mcg Documented by: Lisinopril (Prinivil) 5 mg PO DAILY [facility] Last Admin: 11/25/19 11:13 Dose: 5 mg Documented by: Metoprolol Succinate (Toprol Xl -) 25 mg PO DAILY [facility] Last Admin: 11/25/19 11:13 Dose: 25 mg Documented by: Pantoprazole Sodium (Protonix -) 40 mg PO DAILY [facility] Last Admin: 11/25/19 11:13 Dose: 40 mg Documented by: Quetiapine Fumarate (Seroquel -) 12.5 mg PO [facility] Last Admin: 11/24/19 22:08 Dose: 12.5 mg Documented by: - Objective Vital Signs: Vital Signs Temperature 97.6 F 11/25/19 09:00 Pulse Rate 85 11/25/19 09:00 Respiratory Rate 18 11/25/19 09:00 Blood Pressure 132/64 11/25/19 09:00 O2 Sat by Pulse Oximetry (%) 94 L 11/25/19 09:00 Constitutional: Yes: No Distress, Calm Neck: Yes: Supple Cardiovascular: Yes: Regular Rate and Rhythm Respiratory: Yes: Regular Gastrointestinal: Yes: Soft Extremities: No: Cyanosis Edema: No Neurological: Yes: Alert Labs: CBC, BMP 11/25/19 06:42 11/25/19 06:42 INR, PTT INR 1.67 (0.83-1.09) H 11/22/19 00:20 Assessment/Plan 88 year old male with history of atrial fibrillation on Eliquis, hypertension, heart failrue, coronary artery disease, throat cancer, and hypothyroidism who presented s/p fall and found to have a subarachnoid hemorrhage and acute kidney injury with Cr of 2.2. 1. Acute kidney injury likely secondary to volume depletion +/- urinary retention 2. Subarachnoid hemorrhage 3. Atrial fibrillation on Eliquis 4. Hypertension 5. Coronary artery disease 6. Mild hyperkalemia 7. Hypermagnesemia in setting of renal insufficiency Renal function stable. Would continue ACEi for now. CT imaging of the abdomen showed no evidence of hydronephrosis Give PRN Lasix as needed for any signs of respiratory distress, will defer starting standing diuretics as PO intake is poor. Neurosurgery and neurology follow up Maintain Blood pressure < 160 systolic and < 110 diastolic Js Judge DO
--- NOTE | 2019-11-25 14:54 | PN ---
Teaching Attending Note Name of Resident: Shanta Sheridan ATTENDING PHYSICIAN STATEMENT I saw and evaluated the patient. I reviewed the resident's note and discussed the case with the resident. I agree with the resident's findings and plan as documented. SUBJECTIVE: No acute events overnight. PT assessed pt --> 10 ft with shuffling. No complaints today OBJECTIVE: Vital Signs Temperature 97.6 F 11/25/19 09:00 Pulse Rate 85 11/25/19 09:00 Respiratory Rate 18 11/25/19 09:00 Blood Pressure 132/64 11/25/19 09:00 O2 Sat by Pulse Oximetry (%) 94 L 11/25/19 09:00 PE: Gen: NAD, awake, alert, oriented x2 HEENT: Nc/At, BENITO, MMM LUNG: CTA b/l without wheezes or rales CARD: RRR no murmurs appreciated ABD: Soft, NT/ND, + BS Neuro: EOMI, BENITO, strength 5/5 and symmetrical throughout. Sensation intact grossly. Nonfocal; gait not evaluated today CBC, BMP 11/25/19 06:42 11/25/19 06:42 Microbiology 11/22/19 18:27 Urine - Urine Clean Catch Urine Culture - Final Pseudomonas Aeruginosa Active Medications Acetaminophen (Tylenol -) 1,000 mg PO Q6H PRN PRN Reason: PAIN LEVEL 1-5 Last Admin: 11/24/19 22:08 Dose: 1,000 mg Documented by: Albuterol/Ipratropium (Duoneb -) 1 amp NEB Q4H PRN PRN Reason: WHEEZING Atorvastatin Calcium (Lipitor -) 10 mg PO HS [facility] Last Admin: 11/24/19 22:08 Dose: 10 mg Documented by: Ceftriaxone Sodium 1 gm/ (Dextrose) 50 mls @ 200 mls/hr IVPB DAILY [facility]; Protocol Last Admin: 11/25/19 11:13 Dose: 200 mls/hr Documented by: Levothyroxine Sodium (Synthroid -) 100 mcg PO 0700 [facility] Last Admin: 11/25/19 06:15 Dose: 100 mcg Documented by: Lisinopril (Prinivil) 5 mg PO DAILY [facility] Last Admin: 11/25/19 11:13 Dose: 5 mg Documented by: Metoprolol Succinate (Toprol Xl -) 25 mg PO DAILY [facility] Last Admin: 11/25/19 11:13 Dose: 25 mg Documented by: Pantoprazole Sodium (Protonix -) 40 mg PO DAILY [facility] Last Admin: 11/25/19 11:13 Dose: 40 mg Documented by: Quetiapine Fumarate (Seroquel -) 12.5 mg PO HS [facility] Last Admin: 11/24/19 22:08 Dose: 12.5 mg Documented by: ASSESSMENT AND PLAN: Traumatic Subarachnoid hemorrhage Pseudomonas likely Atrial fibrillation, rate-controlled History of HTN History of CHF, not in exacerbation History of CAD History of Hypothyroidism --No surgical intervention --Continue to control BP strictly --Patient with PT and needs placement at SNF; discussed with SW --Continue to monitor neurological exam --Stop Rocephin --Pansensitive pseudomonas noted on urine culture --Cr stabilized and to continue ACEi --PRN Lasix for volume overload to be assessed daily per nephrology --Continue home medications: Synthroid, Lisinopril 5, Toprol 25mg, Lipitor, Seroquel 12.5mg HS Dispo: Pending SNF placement for rehab; will need 24hr off DO Vito Perdomo IM
--- NOTE | 2019-11-25 15:11 | PN ---
Physical Exam: SUBJECTIVE: Patient seen and examined this AM. No new complaints. No acute overnight events. Continues to have toe pain OBJECTIVE: Vital Signs Period Temp Pulse Resp BP Sys/Yañez Pulse Ox Last 24 Hr 97.6 F-99.2 F 78-112 18-20 114-138/57-86 94-96 GENERAL: A&Ox3, NAD EYES: EOMI NECK: Supple, no JVD LUNGS: decreased breath sounds at the bases HEART: Regular rate and rhythm, S1, S2 without murmur ABDOMEN: Soft, NT ND +BS EXTREMITIES: no edema. Left great toe tender to light touch, no tophi noted NEUROLOGICAL: Cranial nerves II through XII grossly intact SKIN: Warm, dry, normal turgor, no rashes or lesions noted Laboratory Last Values WBC 6.9 K/mm3 (4.0-10.0) 11/25/19 06:42 RBC 3.91 M/mm3 (4.00-5.60) L 11/25/19 06:42 Hgb 12.9 GM/dL (11.7-16.9) 11/25/19 06:42 Hct 38.5 % (35.4-49) 11/25/19 06:42 MCV 98.4 fl (80-96) H 11/25/19 06:42 MCH 33.0 pg (25.7-33.7) 11/25/19 06:42 MCHC 33.5 g/dl (32.0-35.9) 11/25/19 06:42 RDW 12.6 % (11.9-15.9) 11/25/19 06:42 Plt Count 182 K/MM3 (134-434) 11/25/19 06:42 MPV 9.6 fl (7.5-11.1) 11/25/19 06:42 Absolute Neuts (auto) 4.8 K/mm3 (1.5-8.0) 11/25/19 06:42 Neutrophils % 69.6 % (42.8-82.8) 11/25/19 06:42 Lymphocytes % 17.1 % (8-40) 11/25/19 06:42 Monocytes % 11.0 % (3.8-10.2) H 11/25/19 06:42 Eosinophils % 1.9 % (0-4.5) 11/25/19 06:42 Basophils % 0.4 % (0-2.0) 11/25/19 06:42 Nucleated RBC % 0 % (0-0) 11/25/19 06:42 PT with INR 19.80 SEC (9.7-13.0) H 11/22/19 00:20 INR 1.67 (0.83-1.09) H 11/22/19 00:20 PTT (Actin FS) 32.1 SECONDS (25.2-36.5) 11/22/19 00:20 Sodium 138 mmol/L (136-145) 11/25/19 06:42 Potassium 4.2 mmol/L (3.5-5.1) 11/25/19 06:42 Chloride 104 mmol/L (98-107) 11/25/19 06:42 Carbon Dioxide 26 mmol/L (21-32) 11/25/19 06:42 Anion Gap 8 MMOL/L (8-16) 11/25/19 06:42 BUN 30.4 mg/dL (7-18) H 11/25/19 06:42 Creatinine 1.3 mg/dL (0.55-1.3) 11/25/19 06:42 Est GFR (CKD-EPI)AfAm 56.46 11/25/19 06:42 Est GFR (CKD-EPI)NonAf 48.72 11/25/19 06:42 POC Glucometer 104 UNITS (80-120) 11/22/19 17:10 Random Glucose 127 mg/dL (74-106) H 11/25/19 06:42 Calcium 8.9 mg/dL (8.5-10.1) 11/25/19 06:42 Phosphorus 3.1 mg/dL (2.5-4.9) 11/25/19 06:42 Magnesium 2.1 mg/dL (1.8-2.4) 11/25/19 06:42 Total Bilirubin 1.1 mg/dL (0.2-1) H 11/25/19 06:42 AST 25 U/L (15-37) 11/25/19 06:42 ALT 26 U/L (13-61) 11/25/19 06:42 Alkaline Phosphatase 104 U/L (45-117) 11/25/19 06:42 Creatine Kinase 237 U/L (26-308) 11/23/19 05:43 Creatine Kinase Index 1.4 % (0.0-5.0) 11/23/19 05:43 CK-MB (CK-2) 3.5 ng/mL (0.5-3.6) 11/23/19 05:43 Troponin I < 0.02 ng/ml (0.00-0.05) 11/22/19 00:00 Total Protein 6.9 g/dl (6.4-8.2) 11/25/19 06:42 Albumin 3.1 g/dl (3.4-5.0) L 11/25/19 06:42 Urine Color Yellow 11/22/19 01:18 Urine Appearance Clear 11/22/19 01:18 Urine pH 5.0 (5.0-8.0) D 11/22/19 01:18 Ur Specific [place] 1.012 (1.010-1.035) 11/22/19 01:18 Urine Protein Negative (NEGATIVE) 11/22/19 01:18 Urine Glucose (UA) Negative (NEGATIVE) 11/22/19 01:18 Urine Ketones Negative (NEGATIVE) 11/22/19 01:18 Urine Blood Negative (NEGATIVE) 11/22/19 01:18 Urine Nitrite Negative (NEGATIVE) 11/22/19 01:18 Urine Bilirubin Negative (NEGATIVE) 11/22/19 01:18 Urine Urobilinogen 0.2 mg/dL (0.2-1.0) 11/22/19 01:18 Ur Leukocyte Esterase Negative (NEGATIVE) 11/22/19 01:18 COVID-19 (DESIRAE) Not detected (Not Detected) 11/22/19 00:20 Microbiology 11/22/19 18:27 Urine - Urine Clean Catch Urine Culture - Final Pseudomonas Aeruginosa Active Medications Acetaminophen (Tylenol -) 1,000 mg PO Q6H PRN PRN Reason: PAIN LEVEL 1-5 Last Admin: 11/24/19 22:08 Dose: 1,000 mg Documented by: Albuterol/Ipratropium (Duoneb -) 1 amp NEB Q4H PRN PRN Reason: WHEEZING Atorvastatin Calcium (Lipitor -) 10 mg PO HS [facility] Last Admin: 11/24/19 22:08 Dose: 10 mg Documented by: Ceftriaxone Sodium 1 gm/ (Dextrose) 50 mls @ 200 mls/hr IVPB DAILY [facility]; Protocol Last Admin: 11/25/19 11:13 Dose: 200 mls/hr Documented by: Levothyroxine Sodium (Synthroid -) 100 mcg PO 0700 [facility] Last Admin: 11/25/19 06:15 Dose: 100 mcg Documented by: Lisinopril (Prinivil) 5 mg PO DAILY [facility] Last Admin: 11/25/19 11:13 Dose: 5 mg Documented by: Metoprolol Succinate (Toprol Xl -) 25 mg PO DAILY [facility] Last Admin: 11/25/19 11:13 Dose: 25 mg Documented by: Pantoprazole Sodium (Protonix -) 40 mg PO DAILY [facility] Last Admin: 11/25/19 11:13 Dose: 40 mg Documented by: Quetiapine Fumarate (Seroquel -) 12.5 mg PO HS [facility] Last Admin: 11/24/19 22:08 Dose: 12.5 mg Documented by: ASSESSMENT/PLAN: 80 y/o M PMHx Afib (on Eliquis), CVA, HTN/HLD, gout, hypothyroidism, HFrEF, recent admission for AMS and delirium, presents with subarachnoid hemorrhage after an unwitnessed fall at [facility]. #Traumatic subarachnoid hemorrhage, patient on Eliquis Neurology on board: Appreciate recs Per neurosurg, no acute surgical intervention needed at this time. Hold Keteora, Eliquis Repeat head CT on Thursday as per Neuro -fall precautions -Strict BP Control to <160/110 -PT Eval for SNF Placement -Further AC rec's as per Neuro #Gout Flare -Colchicine 1.2m given now followed by 0.6mg 1 hour later -Start Colchicine 0.6mg daily tomorrow #Prerenal CASIE: Resolved Hold spironolactone, Lasix -Continue lisinopril -nephro on board #History of seizures; No new episodes. -Per neuro, hold home Keppra #Atrial fibrillation; Rate-controlled. -Hold home Eliquis in setting of SAH -Cont home med: Metoprolol Succinate 50 mg QD #CHF Holding spironolactone, Lasix for poor intake -Can Give PRN Lasix for respiratory distress #HTN/HLD; Hold home meds Spironolactone, Lasix Cont home med: Metoprolol succinate 50 QD, Atorvastatin 10 HS, Lisinopril #History of hypothyroidism; Cont home med: Levothyroxine 100 mcg QD #Prophylaxis DVT: SCDs GI: Protonix 40 mg PO QD dispo: SW looking for new SNF- and patient needs to be off altaf for 24 hours Visit type - Emergency Visit Emergency Visit: Yes ED Registration Date: 11/22/19 Care time: The patient presented to the Emergency Department on the above date and was hospitalized for further evaluation of their emergent condition. - New Patient This patient is new to me today: Yes Date on this admission: 11/25/19 - Critical Care Critical Care patient: No - Discharge Referral Referred to [facility] Med P.C.: No - Medication Review Med list reviewed for High Risk Meds patients 65 and older: Yes ATTENDING PHYSICIAN STATEMENT I saw and evaluated the patient. I reviewed the resident's note and discussed the case with the resident. I agree with the resident's findings and plan as documented. SUBJECTIVE: OBJECTIVE: ASSESSMENT AND PLAN:
[2019-11-25] MEDS ORDERED: COLCHICINE 0.6 MG CAP PO ONE ×2 (15:30→16:30)
[2019-11-25] MEDS: QUEtiapine FUMARATE 25 MG TABLET PO SCH (21:32)
[2019-11-25] MEDS: ATORVASTATIN CA 10 MG TABLET (FP) PO SCH (21:32)
[2019-11-26] MEDS: LEVOTHYROXINE NA 100 MCG TABLET (FP) PO SCH (06:35)
[2019-11-26 06:59] LABS: BASO % 0.8 % (0-2.0); EOS % 2.3 % (0-4.5); HEMATOCRIT 37.2 % (35.4-49); HEMOGLOBIN 12.6 GM/dL (11.7-16.9); LYMPH % 23.3 % (8-40); MCH 33.3 pg (25.7-33.7); MCHC 33.8 g/dl (32.0-35.9); MEAN CELL VOLUME 98.5 fl (80-96); MEAN PLT VOLUME 9.7 fl (7.5-11.1); MONO % 10.2 % (3.8-10.2); NEUT % 63.4 % (42.8-82.8); PLATELET COUNT 180 K/MM3 (134-434); RBC 3.78 M/mm3 (4.00-5.60); RDW 12.5 % (11.9-15.9); WHITE BLOOD COUNT 6.1 K/mm3 (4.0-10.0)
[2019-11-26 07:25] LABS: ALBUMIN 2.9 g/dl (3.4-5.0); BILIRUBIN,TOTAL 1.1 mg/dL (0.2-1); BLOOD UREA NITROGEN 19.2 mg/dL (7-18); CALCIUM 8.5 mg/dL (8.5-10.1); CREATININE 1.1 mg/dL (0.55-1.3); MAGNESIUM 2.1 mg/dL (1.8-2.4); PHOSPHOROUS 2.9 mg/dL (2.5-4.9); POTASSIUM 4.3 mmol/L (3.5-5.1); TOT PROT 6.6 g/dl (6.4-8.2)
[2019-11-26] MEDS: COLCHICINE 0.6 MG CAP PO SCH (10:15)
[2019-11-26] MEDS: metoPROLOL SUCCINATE 25 MG TAB.SR.24H (FP) PO SCH (10:15)
[2019-11-26] MEDS: LISINOPRIL 5 MG TABLET (FP) PO SCH (10:15)
[2019-11-26] MEDS: PANTOPRAZOLE 40 MG TABLET PO SCH (10:15)
--- NOTE | 2019-11-26 11:09 | PN ---
Progress Note (short form) - Note Progress Note: 1. Acute kidney injury likely secondary to volume depletion +/- urinary retention 2. Subarachnoid hemorrhage 3. Atrial fibrillation on Eliquis 4. Hypertension 5. Coronary artery disease 6. Mild hyperkalemia 7. Hypermagnesemia in setting of renal insufficiency Active Medications Acetaminophen (Tylenol -) 1,000 mg PO Q6H PRN PRN Reason: PAIN LEVEL 1-5 Last Admin: 11/24/19 22:08 Dose: 1,000 mg Documented by: Albuterol/Ipratropium (Duoneb -) 1 amp NEB Q4H PRN PRN Reason: WHEEZING Atorvastatin Calcium (Lipitor -) 10 mg PO [facility] Last Admin: 11/25/19 21:32 Dose: 10 mg Documented by: Colchicine (Colcrys) 0.6 mg PO DAILY [facility] Last Admin: 11/26/19 10:15 Dose: 0.6 mg Documented by: Levothyroxine Sodium (Synthroid -) 100 mcg PO 0700 [facility] Last Admin: 11/26/19 06:35 Dose: 100 mcg Documented by: Lisinopril (Prinivil) 5 mg PO DAILY [facility] Last Admin: 11/26/19 10:15 Dose: 5 mg Documented by: Metoprolol Succinate (Toprol Xl -) 25 mg PO DAILY [facility] Last Admin: 11/26/19 10:15 Dose: 25 mg Documented by: Pantoprazole Sodium (Protonix -) 40 mg PO DAILY [facility] Last Admin: 11/26/19 10:15 Dose: 40 mg Documented by: Quetiapine Fumarate (Seroquel -) 12.5 mg PO [facility] Last Admin: 11/25/19 21:32 Dose: 12.5 mg Documented by: Spironolactone (Aldactone -) 25 mg PO DAILY [facility] Last Admin: 11/26/19 12:53 Dose: 25 mg Documented by: Last Vital Signs Temp Pulse Resp BP Pulse Ox 97.8 F 78 18 143/87 100 11/26/19 14:00 11/26/19 14:00 11/26/19 10:00 11/26/19 14:00 11/26/19 10:00 CBC, BMP 11/26/19 05:25 11/26/19 05:25 IMP- s/p CASIE Plan-
--- NOTE | 2019-11-26 11:43 | PN ---
Progress Note (short form) - Note Progress Note: SUBJECTIVE: Seen and examined at bedside. NAD. OBJECTIVE Last Vital Signs Temp Pulse Resp BP Pulse Ox 97.0 F L 66 18 103/57 L 100 11/26/19 10:00 11/26/19 10:00 11/26/19 10:00 11/26/19 10:00 11/26/19 10:00 PE: Per resident note Labs/Imaging: reviewed ASSESSMENT/PLAN 80-year-old female with past medical history of A. fib on Eliquis, CVA, hypertension, hyperlipidemia, gout, hypothyroidism, heart failure with reduced ejection fraction, recent admission for altered mental status and delirium, presents with subarachnoid hemorrhage after an unwitnessed fall at [facility]. #Traumatic subarachnoid hemorrhage, patient on Eliquis Neurology on board: Appreciate recs Per neurosurg, no acute surgical intervention needed at this time. Hold Keppra, Eliquis Repeat head CT on Thursday as per Neuro -fall precautions -Strict BP Control to <160/110 -PT Eval for SNF Placement -Further AC rec's as per Neuro #Gout Flare -colchicine 0.6mg daily -outpatient nephrology f/u for urate lowering therapy (Has had 2 flares in 1 month) #Prerenal CASIE: Resolved #History of seizures; No new episodes. -Per neuro, hold home Keppra #Atrial fibrillation; Rate-controlled. -Hold home Eliquis in setting of SAH -Cont home med: Metoprolol Succinate 50 mg QD #CHF Holding spironolactone, Lasix for poor intake -Can Give PRN Lasix for respiratory distress #HTN/HLD; Hold home meds Spironolactone, Lasix Cont home med: Metoprolol succinate 50 QD, Atorvastatin 10 HS, Lisinopril #History of hypothyroidism; Cont home med: Levothyroxine 100 mcg QD #Prophylaxis DVT: SCDs GI: Protonix 40 mg PO QD dispo: SW looking for new SNF- and patient needs to be off altaf for 24 hours Visit type - Emergency Visit Emergency Visit: Yes ED Registration Date: 11/22/19 Care time: The patient presented to the Emergency Department on the above date and was hospitalized for further evaluation of their emergent condition. - New Patient This patient is new to me today: No - Critical Care Critical Care patient: No - Medication Review Med list reviewed for High Risk Meds patients 65 and older: Yes
[2019-11-26] MEDS: SPIRONOLACTONE 25 MG TABLET PO SCH (12:53)
[2019-11-26] MEDS: QUEtiapine FUMARATE 25 MG TABLET PO SCH (21:09)
[2019-11-26] MEDS: ATORVASTATIN CA 10 MG TABLET (FP) PO SCH (21:09)
[2019-11-26] MEDS: ACETAMINOPHEN 500 MG TABLET (FP) PO PRN (21:09)
[2019-11-27] MEDS: LEVOTHYROXINE NA 100 MCG TABLET (FP) PO SCH (06:55)
[2019-11-27] MEDS ORDERED: PT OWN MED DRAWER 7, Y5N ONE (09:08)
[2019-11-27] MEDS: SPIRONOLACTONE 25 MG TABLET PO SCH (09:27)
[2019-11-27] MEDS: PANTOPRAZOLE 40 MG TABLET PO SCH (09:27)
[2019-11-27] MEDS: LISINOPRIL 5 MG TABLET (FP) PO SCH (09:27)
[2019-11-27] MEDS: metoPROLOL SUCCINATE 25 MG TAB.SR.24H (FP) PO SCH (09:27)
[2019-11-27] MEDS: COLCHICINE 0.6 MG CAP PO SCH (09:27)
--- NOTE | 2019-11-27 11:57 | PN ---
Progress Note (short form) - Note Progress Note: SUBJECTIVE: Seen and examined at bedside. NAD.Alert and oriented x2 at mental baseline. If CT head is unchanged tomorrow patient will be medically cleared for discharge OBJECTIVE Last Vital Signs Temp Pulse Resp BP Pulse Ox 97.6 F 76 19 123/70 93 L 11/27/19 09:30 11/27/19 09:30 11/27/19 09:30 11/27/19 09:30 11/27/19 09:30 PE: GEN: NAD HEENT: [place]/AT [facility] RESP: CTAB CARDS: RRR, -MRG ABD: soft, nt/nd +BS EXT: No swelling/Edema Neuro: Non-focal, A&OX3 Labs/Imaging: reviewed ASSESSMENT/PLAN 80-year-old female with past medical history of A. fib on Eliquis, CVA, hypertension, hyperlipidemia, gout, hypothyroidism, heart failure with reduced ejection fraction, recent admission for altered mental status and delirium, presents with subarachnoid hemorrhage after an unwitnessed fall at [facility]. #Traumatic subarachnoid hemorrhage, patient on Eliquis Neurology on board: Appreciate recs Per neurosurg, no acute surgical intervention needed at this time. Hold Keteora, Eliquis Repeat head CT on Thursday as per Neuro -fall precautions -Strict BP Control to <160/110 -PT Eval for SNF Placement -Further AC rec's as per Neuro #Gout Flare -colchicine 0.6mg daily -outpatient nephrology f/u for urate lowering therapy (Has had 2 flares in 1 month) #Prerenal CASIE: Resolved #History of seizures; No new episodes. -Per neuro, hold home Keppra #Atrial fibrillation; Rate-controlled. -Hold home Eliquis in setting of SAH -Cont home med: Metoprolol Succinate 50 mg QD #CHF Holding spironolactone, Lasix for poor intake -Can Give PRN Lasix for respiratory distress #HTN/HLD; Hold home meds Spironolactone, Lasix Cont home med: Metoprolol succinate 50 QD, Atorvastatin 10 HS, Lisinopril #History of hypothyroidism; Cont home med: Levothyroxine 100 mcg QD #Prophylaxis DVT: SCDs GI: Protonix 40 mg PO QD dispo: SW looking for new SNF- and patient needs to be off altaf for 24 hours Visit type - Emergency Visit Emergency Visit: Yes ED Registration Date: 11/22/19 Care time: The patient presented to the Emergency Department on the above date and was hospitalized for further evaluation of their emergent condition. - New Patient This patient is new to me today: No - Critical Care Critical Care patient: No - Medication Review Med list reviewed for High Risk Meds patients 65 and older: Yes
--- NOTE | 2019-11-27 19:30 | PN ---
Progress Note (short form) - Note Progress Note: 1. Acute kidney injury likely secondary to volume depletion +/- urinary retention 2. Subarachnoid hemorrhage 3. Atrial fibrillation on Eliquis 4. Hypertension 5. Coronary artery disease 6. Mild hyperkalemia 7. Hypermagnesemia in setting of renal insufficiency Active Medications Acetaminophen (Tylenol -) 1,000 mg PO Q6H PRN PRN Reason: PAIN LEVEL 1-5 Last Admin: 11/26/19 21:09 Dose: 1,000 mg Documented by: Albuterol/Ipratropium (Duoneb -) 1 amp NEB Q4H PRN PRN Reason: WHEEZING Atorvastatin Calcium (Lipitor -) 10 mg PO [facility] Last Admin: 11/26/19 21:09 Dose: 10 mg Documented by: Colchicine (Colcrys) 0.6 mg PO DAILY [facility] Last Admin: 11/27/19 09:27 Dose: 0.6 mg Documented by: Levothyroxine Sodium (Synthroid -) 100 mcg PO 0700 [facility] Last Admin: 11/27/19 06:55 Dose: 100 mcg Documented by: Lisinopril (Prinivil) 5 mg PO DAILY [facility] Last Admin: 11/27/19 09:27 Dose: 5 mg Documented by: Metoprolol Succinate (Toprol Xl -) 25 mg PO DAILY [facility] Last Admin: 11/27/19 09:27 Dose: 25 mg Documented by: Pantoprazole Sodium (Protonix -) 40 mg PO DAILY [facility] Last Admin: 11/27/19 09:27 Dose: 40 mg Documented by: Quetiapine Fumarate (Seroquel -) 12.5 mg PO [facility] Last Admin: 11/26/19 21:09 Dose: 12.5 mg Documented by: Spironolactone (Aldactone -) 25 mg PO DAILY [facility] Last Admin: 11/27/19 09:27 Dose: 25 mg Documented by: Last Vital Signs Temp Pulse Resp BP Pulse Ox 97.7 F 70 20 132/72 93 L 11/27/19 18:00 11/27/19 18:00 11/27/19 18:00 11/27/19 18:00 11/27/19 09:30 CBC, BMP 11/26/19 05:25 11/26/19 05:25 IMP- s/p CASIE Plan-
[2019-11-27] MEDS: ATORVASTATIN CA 10 MG TABLET (FP) PO SCH (21:50)
[2019-11-27] MEDS: QUEtiapine FUMARATE 25 MG TABLET PO SCH (21:50)
[2019-11-28] MEDS: LEVOTHYROXINE NA 100 MCG TABLET (FP) PO SCH (06:25)
[2019-11-28 08:01] LABS: BLOOD UREA NITROGEN 20.6 mg/dL (7-18); CALCIUM 8.5 mg/dL (8.5-10.1); CREATININE 1.1 mg/dL (0.55-1.3); POTASSIUM 4.5 mmol/L (3.5-5.1)
[2019-11-28 08:36] LABS: BASO % 0.8 % (0-2.0); HEMATOCRIT 37.2 % (35.4-49); HEMOGLOBIN 12.5 GM/dL (11.7-16.9); MCHC 33.6 g/dl (32.0-35.9); MEAN CELL VOLUME 98.1 fl (80-96); MEAN PLT VOLUME 9.7 fl (7.5-11.1); MONO % 7.9 % (3.8-10.2); NEUT % 66.3 % (42.8-82.8); PLATELET COUNT 167 K/MM3 (134-434); RBC 3.79 M/mm3 (4.00-5.60); RDW 12.2 % (11.9-15.9); WHITE BLOOD COUNT 6.6 K/mm3 (4.0-10.0)
[2019-11-28] MEDS: COLCHICINE 0.6 MG CAP PO SCH (10:07)
[2019-11-28] MEDS: LISINOPRIL 5 MG TABLET (FP) PO SCH (10:07)
[2019-11-28] MEDS: SPIRONOLACTONE 25 MG TABLET PO SCH (10:07)
[2019-11-28] MEDS: PANTOPRAZOLE 40 MG TABLET PO SCH (10:07)
[2019-11-28] MEDS: metoPROLOL SUCCINATE 25 MG TAB.SR.24H (FP) PO SCH (10:07)
--- NOTE | 2019-11-28 11:02 | PN ---
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 Tolerating diet with good appetite. More verbal, cooperative. Limited dentition, content with pureed diet. Reassessed swallowing function with thin liquids with good overt tolerance. Consider trial of diewt upgrade to dys ground/thin liquids Observe tolerance.
--- NOTE | 2019-11-28 12:30 | PN ---
Progress Note, Physician History of Present Illness: Seen and examined at the bedside awake and alert, oriented x 2 no overnight events s/p repeat CT head this am, awaiting results tolerating oral diet back on ACEi and aldactone - Current Medication List Current Medications: Active Medications Acetaminophen (Tylenol -) 1,000 mg PO Q6H PRN PRN Reason: PAIN LEVEL 1-5 Last Admin: 11/26/19 21:09 Dose: 1,000 mg Documented by: Albuterol/Ipratropium (Duoneb -) 1 amp NEB Q4H PRN PRN Reason: WHEEZING Atorvastatin Calcium (Lipitor -) 10 mg PO [facility] Last Admin: 11/27/19 21:50 Dose: 10 mg Documented by: Colchicine (Colcrys) 0.6 mg PO DAILY [facility] Last Admin: 11/28/19 10:07 Dose: 0.6 mg Documented by: Levothyroxine Sodium (Synthroid -) 100 mcg PO 0700 [facility] Last Admin: 11/28/19 06:25 Dose: 100 mcg Documented by: Lisinopril (Prinivil) 5 mg PO DAILY [facility] Last Admin: 11/28/19 10:07 Dose: 5 mg Documented by: Metoprolol Succinate (Toprol Xl -) 25 mg PO DAILY [facility] Last Admin: 11/28/19 10:07 Dose: 25 mg Documented by: Pantoprazole Sodium (Protonix -) 40 mg PO DAILY [facility] Last Admin: 11/28/19 10:07 Dose: 40 mg Documented by: Quetiapine Fumarate (Seroquel -) 12.5 mg PO [facility] Last Admin: 11/27/19 21:50 Dose: 12.5 mg Documented by: Spironolactone (Aldactone -) 25 mg PO DAILY [facility] Last Admin: 11/28/19 10:07 Dose: 25 mg Documented by: - Objective Vital Signs: Vital Signs Temperature 98.1 F 11/28/19 10:00 Pulse Rate 74 11/28/19 10:00 Respiratory Rate 18 11/28/19 10:00 Blood Pressure 148/86 11/28/19 10:00 O2 Sat by Pulse Oximetry (%) 96 11/28/19 10:00 Constitutional: Yes: No Distress HENT: Yes: Atraumatic Neck: Yes: Supple Cardiovascular: Yes: Regular Rate and Rhythm Respiratory: Yes: Regular Gastrointestinal: Yes: Soft Genitourinary: No: Bladder Distention Extremities: No: Cold, Cool, Cyanosis Edema: No Neurological: Yes: Alert. No: Oriented Labs: CBC, BMP 11/28/19 06:25 11/28/19 06:25 INR, PTT INR 1.67 (0.83-1.09) H 11/22/19 00:20 Assessment/Plan 88 year old male with history of atrial fibrillation on Eliquis, hypertension, heart failrue, coronary artery disease, throat cancer, and hypothyroidism who presented s/p fall and found to have a subarachnoid hemorrhage and acute kidney injury with Cr of 2.2. 1. Acute kidney injury likely secondary to volume depletion +/- urinary rete ntion 2. Subarachnoid hemorrhage 3. Atrial fibrillation on Eliquis 4. Hypertension 5. Coronary artery disease 6. Mild hyperkalemia 7. Hypermagnesemia in setting of renal insufficiency Renal function remains stable. Continue ACEi and aldactone. Oral solute intake as tolerated. f/u repeat CT of the head. Neurosurgery and neurology follow up Discharge planning as per primary team. Js Judge DO
--- NOTE | 2019-11-28 13:02 | PN ---
Teaching Attending Note Name of Resident: Chip Schultz ATTENDING PHYSICIAN STATEMENT I saw and evaluated the patient. I reviewed the resident's note and discussed the case with the resident. I agree with the resident's findings and plan as documented. SUBJECTIVE: Seen and examined at bedside. NAD.Alert and oriented x2 at mental baseline. Pe nding read of CTH. If CT head is unchanged patient will be medically cleared for discharge OBJECTIVE Last Vital Signs Temp Pulse Resp BP Pulse Ox 98.1 F 74 18 148/86 96 11/28/19 10:00 11/28/19 10:00 11/28/19 10:00 11/28/19 10:00 11/28/19 10:00 PE: GEN: NAD HEENT: NC/AT [facility] RESP: CTAB CARDS: RRR, -MRG ABD: soft, nt/nd +BS EXT: No swelling/Edema Neuro: Non-focal, A&OX3 Labs/Imaging: reviewed ASSESSMENT/PLAN 80-year-old female with past medical history of A. fib on Eliquis, CVA, hypertension, hyperlipidemia, gout, hypothyroidism, heart failure with reduced ejection fraction, recent admission for altered mental status and delirium, presents with subarachnoid hemorrhage after an unwitnessed fall at [facility]. #Traumatic subarachnoid hemorrhage, patient on Eliquis Neurology on board: Appreciate recs Per neurosurg, no acute surgical intervention needed at this time. Hold [place], Eliquis Repeat head CT on Thursday as per Neuro -fall precautions -Strict BP Control to <160/110 -PT Eval for SNF Placement -Further AC rec's as per Neuro #Gout Flare -colchicine 0.6mg daily -outpatient nephrology f/u for urate lowering therapy (Has had 2 flares in 1 month) #Prerenal CASIE: Resolved #History of seizures; No new episodes. -Per neuro, hold home Keppra #Atrial fibrillation; Rate-controlled. -Hold home Eliquis in setting of SAH -Cont home med: Metoprolol Succinate 50 mg QD #CHF Holding spironolactone, Lasix for poor intake -Can Give PRN Lasix for respiratory distress #HTN/HLD; Hold home meds Spironolactone, Lasix Cont home med: Metoprolol succinate 50 QD, Atorvastatin 10 HS, Lisinopril #History of hypothyroidism; Cont home med: Levothyroxine 100 mcg QD #Prophylaxis DVT: SCDs GI: Protonix 40 mg PO QD dispo: SW looking for new SNF- and patient needs to be off altaf for 24 hours
--- NOTE | 2019-11-28 13:33 | CON.CARD ---
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 Pt was at rehab and says he tripped and fell and hit head, no loc. No cp sob palps dizzy pnd orthopnea le edema. Found to have SAH. pmhx/pshx: per hpi social hx: etoh abuse, former smoker fam hx; no cad or cardiomyopathy ros: per hpi; all others nl Ambulatory Orders Apixaban [Eliquis] 5 mg PO BID 03/13/17 Lisinopril [Zestril] 5 mg PO DAILY 03/13/17 Spironolactone [Aldactone -] 25 mg PO DAILY 03/13/17 Furosemide [Lasix] 20 mg PO DAILY 11/01/19 Ipratropium/Albuterol Sulfate [Iprat-Albut 0.5-3(2.5) mg/3 ml] 1 amp IH Q4H PRN 11/01/19 Levothyroxine [Synthroid -] 100 mcg PO DAILY 11/01/19 Pravastatin Sodium 10 mg PO HS 11/01/19 Acetaminophen [Tylenol -] 1,000 mg PO Q6H PRN 11/23/19 Metoprolol Succinate [Toprol Xl] 25 mg PO DAILY 11/23/19 Vital Signs Period Temp Pulse Resp BP Sys/Yañez Pulse Ox Last 24 Hr 97.6 F-98.4 F 60-74 16-20 116-148/45-86 96-99 nad no jvd irreg s1s2 nomrg cta bl nl eff awake alert oriented abd nd nt pos bs no jaundice diaphoresis pos dp pt no carotid bruits no le e/c/c Laboratory Last Values WBC 6.6 K/mm3 (4.0-10.0) 11/28/19 06:25 RBC 3.79 M/mm3 (4.00-5.60) L 11/28/19 06:25 Hgb 12.5 GM/dL (11.7-16.9) 11/28/19 06:25 Hct 37.2 % (35.4-49) 11/28/19 06:25 MCV 98.1 fl (80-96) H 11/28/19 06:25 MCH 33.0 pg (25.7-33.7) 11/28/19 06:25 MCHC 33.6 g/dl (32.0-35.9) 11/28/19 06:25 RDW 12.2 % (11.9-15.9) 11/28/19 06:25 Plt Count 167 K/MM3 (134-434) 11/28/19 06:25 MPV 9.7 fl (7.5-11.1) 11/28/19 06:25 Absolute Neuts (auto) 4.4 K/mm3 (1.5-8.0) 11/28/19 06:25 Neutrophils % 66.3 % (42.8-82.8) 11/28/19 06:25 Lymphocytes % 22.0 % (8-40) 11/28/19 06:25 Monocytes % 7.9 % (3.8-10.2) 11/28/19 06:25 Eosinophils % 3.0 % (0-4.5) 11/28/19 06:25 Basophils % 0.8 % (0-2.0) 11/28/19 06:25 Nucleated RBC % 0 % (0-0) 11/28/19 06:25 PT with INR 19.80 SEC (9.7-13.0) H 11/22/19 00:20 INR 1.67 (0.83-1.09) H 11/22/19 00:20 PTT (Actin FS) 32.1 SECONDS (25.2-36.5) 11/22/19 00:20 Sodium 139 mmol/L (136-145) 11/28/19 06:25 Potassium 4.5 mmol/L (3.5-5.1) 11/28/19 06:25 Chloride 104 mmol/L (98-107) 11/28/19 06:25 Carbon Dioxide 30 mmol/L (21-32) 11/28/19 06:25 Anion Gap 4 MMOL/L (8-16) L 11/28/19 06:25 BUN 20.6 mg/dL (7-18) H 11/28/19 06:25 Creatinine 1.1 mg/dL (0.55-1.3) 11/28/19 06:25 Est GFR (CKD-EPI)AfAm 69.10 11/28/19 06:25 Est GFR (CKD-EPI)NonAf 59.62 11/28/19 06:25 POC Glucometer 104 UNITS (80-120) 11/22/19 17:10 Random Glucose 112 mg/dL (74-106) H 11/28/19 06:25 Calcium 8.5 mg/dL (8.5-10.1) 11/28/19 06:25 Phosphorus 2.9 mg/dL (2.5-4.9) 11/26/19 05:25 Magnesium 2.1 mg/dL (1.8-2.4) 11/26/19 05:25 Total Bilirubin 1.1 mg/dL (0.2-1) H 11/26/19 05:25 AST 22 U/L (15-37) 11/26/19 05:25 ALT 26 U/L (13-61) 11/26/19 05:25 Alkaline Phosphatase 98 U/L (45-117) 11/26/19 05:25 Creatine Kinase 237 U/L (26-308) 11/23/19 05:43 Creatine Kinase Index 1.4 % (0.0-5.0) 11/23/19 05:43 CK-MB (CK-2) 3.5 ng/mL (0.5-3.6) 11/23/19 05:43 Troponin I < 0.02 ng/ml (0.00-0.05) 11/22/19 00:00 Total Protein 6.6 g/dl (6.4-8.2) 11/26/19 05:25 Albumin 2.9 g/dl (3.4-5.0) L 11/26/19 05:25 Urine Color Yellow 11/22/19 01:18 Urine Appearance Clear 11/22/19 01:18 Urine pH 5.0 (5.0-8.0) D 11/22/19 01:18 Ur Specific Gleason 1.012 (1.010-1.035) 11/22/19 01:18 Urine Protein Negative (NEGATIVE) 11/22/19 01:18 Urine Glucose (UA) Negative (NEGATIVE) 11/22/19 01:18 Urine Ketones Negative (NEGATIVE) 11/22/19 01:18 Urine Blood Negative (NEGATIVE) 11/22/19 01:18 Urine Nitrite Negative (NEGATIVE) 11/22/19 01:18 Urine Bilirubin Negative (NEGATIVE) 11/22/19 01:18 Urine Urobilinogen 0.2 mg/dL (0.2-1.0) 11/22/19 01:18 Ur Leukocyte Esterase Negative (NEGATIVE) 11/22/19 01:18 COVID-19 (DESIRAE) Not detected (Not Detected) 11/22/19 00:20 tele: afib, rate ok ekg: afib rate ok. incomplete lbbb. non-specific t wave ab. no sig change prior Echo 10/2015: Mild global HK (more prominent HK at basal and mid milner) EF 45- 50%. Mild RV dil with mildly depressed sys function. Severe ANNELIESE. Mild , Mild AR. Borderline prolapse of anterior leaflet with moderate post directed MR. Moderate TR. Severe pHTN. Dilated IVC. (thought to be volume up at the time) Echo 11/2016: tds, mod-sev dec lvef, global hk, nl rv, mod anneliese, mild-mod mr, mod tr, mild phtn, mild-mod ar, mild as, mild ao root dil echo 11/2019: lvh, nl lvef, nl rv, anneliese, mild ar, mild as, mild-mod tr, mild phtn Cath 03/2015 [facility]: LVEDP 9. EF 40%. 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 fall, SAH: -neurosurgery and neurology following, monitoring for now -Eliquis has been held afib: - con't rate control with metoprolol -pt was on eliquis but had fall while at rehab and now here with SAH. AC held for now. Given that he had fall at rehab it does not appear he is a safe candidate for AC at this time, as risk of fall/serious bleeding outweigh benefit. When possible would consider asa. If his fall risk improves post rehab then could reconsider AC. 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
--- NOTE | 2019-11-28 21:03 | PN ---
Physical Exam: SUBJECTIVE: Patient seen and examined at bedside. No acute events overnight. OBJECTIVE: Vital Signs Period Temp Pulse Resp BP Sys/Yañez Pulse Ox Last 24 Hr 97.6 F-98.3 F 60-77 16-20 110-148/45-86 92-97 GENERAL: AAOx2 NAD HEAD:AT/NC EYES: EOMI Sclera Clear ENT: MMM LUNGS:Decreased BS at bases HEART: Irregular S1S2. ABDOMEN: Soft, nontender, nondistended EXTREMITIES: Left great toe erythema, tender to touch. SKIN: Warm, dry, normal turgor, no rashes or lesions noted Laboratory Results - last 24 hr 11/28/19 11/28/19 06:25 06:25 WBC 6.6 RBC 3.79 L Hgb 12.5 Hct 37.2 MCV 98.1 H MCH 33.0 MCHC 33.6 RDW 12.2 Plt Count 167 MPV 9.7 Absolute Neuts (auto) 4.4 Neutrophils % 66.3 Lymphocytes % 22.0 Monocytes % 7.9 Eosinophils % 3.0 Basophils % 0.8 Nucleated RBC % 0 Sodium 139 Potassium 4.5 Chloride 104 Carbon Dioxide 30 Anion Gap 4 L BUN 20.6 H Creatinine 1.1 Est GFR (CKD-EPI)AfAm 69.10 Est GFR (CKD-EPI)NonAf 59.62 Random Glucose 112 H Calcium 8.5 Active Medications Generic Name Dose Route Start Last Admin Trade Name Freq PRN Reason Stop Dose Admin Acetaminophen 1,000 mg 11/23/19 16:53 11/26/19 21:09 Tylenol - PO 1,000 mg Q6H PRN Administration PAIN LEVEL 1-5 Albuterol/Ipratropium 1 amp 11/24/19 01:17 Duoneb - NEB Q4H PRN WHEEZING Atorvastatin Calcium 10 mg 11/24/19 22:00 11/27/19 21:50 Lipitor - PO 10 mg HS NELSY Administration Colchicine 0.6 mg 11/26/19 10:00 11/28/19 10:07 Colcrys PO 0.6 mg DAILY NELSY Administration Levothyroxine Sodium 100 mcg 11/24/19 07:00 11/28/19 06:25 Synthroid - PO 100 mcg 0700 NELSY Administration Lisinopril 5 mg 11/24/19 10:00 11/28/19 10:07 Prinivil PO 5 mg DAILY NELSY Administration Metoprolol Succinate 25 mg 11/24/19 10:00 11/28/19 10:07 Toprol Xl - PO 25 mg DAILY NELSY Administration Pantoprazole Sodium 40 mg 11/24/19 10:00 11/28/19 10:07 Protonix - PO 40 mg DAILY NELSY Administration Quetiapine Fumarate 12.5 mg 11/24/19 22:00 11/27/19 21:50 Seroquel - PO 12.5 mg HS NELSY Administration Spironolactone 25 mg 11/26/19 11:45 11/28/19 10:07 Aldactone - PO 25 mg DAILY NELSY Administration ASSESSMENT/PLAN: 80 y/o M PMHx Afib (on Eliquis), CVA, HTN/HLD, gout, hypothyroidism, HFrEF, recent admission for AMS and delirium, presents with subarachnoid hemorrhage after an unwitnessed fall at [facility]. #Traumatic subarachnoid hemorrhage, patient on Eliquis Neurology on board Dr Cormier. No surgical intervention warranted at this time. Hold Keppra, Eliquis. May resume ASA per neurosurgery. Repeat head CT reveals evolving SA, no expansion -fall precautions -PT Eval for SNF Placement -Strict BP Control to <160/110 #Gout Flare -Colchicine 0.6mg daily #History of seizures; No new episodes. -Per neuro, hold home Keppra #Atrial fibrillation; Rate-controlled. -Hold home Eliquis in setting of SAH -Cont home med: Metoprolol Succinate 50 mg QD, ASA #CHF Cont home lasix, BB and aldactone #HTN/HLD; Cont home med: Metoprolol succinate 50 QD, Atorvastatin 10 HS, Lisinopril #History of hypothyroidism; Cont home med: Levothyroxine 100 mcg QD #Prophylaxis DVT: SCDs GI: Protonix 40 mg PO QD dispo: SNF possibly to [facility] home with VNS. Informed daughter of plan. Visit type - Emergency Visit Emergency Visit: Yes ED Registration Date: 11/22/19 Care time: The patient presented to the Emergency Department on the above date and was hospitalized for further evaluation of their emergent condition. - New Patient This patient is new to me today: No - Critical Care Critical Care patient: No - Discharge Referral Referred to [facility] Med P.C.: No - Medication Review Med list reviewed for High Risk Meds patients 65 and older: No ATTENDING PHYSICIAN STATEMENT I saw and evaluated the patient. I reviewed the resident's note and discussed the case with the resident. I agree with the resident's findings and plan as documented. SUBJECTIVE: OBJECTIVE: ASSESSMENT AND PLAN:
[2019-11-28] MEDS: QUEtiapine FUMARATE 25 MG TABLET PO SCH (21:54)
[2019-11-28] MEDS: ATORVASTATIN CA 10 MG TABLET (FP) PO SCH (21:54)
[2019-11-29 03:25] VITALS: TEMP 97.7
[2019-11-29] MEDS: LEVOTHYROXINE NA 100 MCG TABLET (FP) PO SCH (06:43)
[2019-11-29 07:55] LABS: HEMATOCRIT 36.6 % (35.4-49); HEMOGLOBIN 12.7 GM/dL (11.7-16.9); MCH 34.3 pg (25.7-33.7); MCHC 34.6 g/dl (32.0-35.9); PLATELET COUNT 159 K/MM3 (134-434); RDW 12.6 % (11.9-15.9); WHITE BLOOD COUNT 7.1 K/mm3 (4.0-10.0)
[2019-11-29 08:21] LABS: BLOOD UREA NITROGEN 18.2 mg/dL (7-18); CALCIUM 8.5 mg/dL (8.5-10.1); CREATININE 1.3 mg/dL (0.55-1.3); MAGNESIUM 2.1 mg/dL (1.8-2.4); PHOSPHOROUS 2.9 mg/dL (2.5-4.9); POTASSIUM 4.9 mmol/L (3.5-5.1); TOT PROT 6.6 g/dl (6.4-8.2)
[2019-11-29] MEDS: COLCHICINE 0.6 MG CAP PO SCH (09:36)
[2019-11-29] MEDS: SPIRONOLACTONE 25 MG TABLET PO SCH (09:36)
[2019-11-29] MEDS: PANTOPRAZOLE 40 MG TABLET PO SCH (09:36)
[2019-11-29] MEDS: LISINOPRIL 5 MG TABLET (FP) PO SCH (09:37)
[2019-11-29] MEDS: metoPROLOL SUCCINATE 25 MG TAB.SR.24H (FP) PO SCH (09:37)
--- NOTE | 2019-11-29 10:23 | PN ---
Progress Note, [employer] - Note Progress Note: Selected Entries 11/27/19 11/27/19 11/27/19 10:39 14:07 15:00 Breakfast 50% Diet Tolerated Well Well Well Lunch 75% 75% Supper Temperature Pulse Rate Blood Pressure 11/27/19 11/28/19 11/28/19 18:00 02:00 06:00 Breakfast Diet Tolerated Well Lunch Supper 75% Temperature 98.2 F 97.6 F Pulse Rate 73 60 Blood Pressure 127/45 L 128/75 11/28/19 10:00 Breakfast Diet Tolerated Lunch Supper Temperature 98.1 F Pulse Rate 74 Blood Pressure 148/86 Laboratory Tests 11/28/19 06:25 WBC 6.6 Selected Entries 11/28/19 11/28/19 11/28/19 12:19 14:01 23:00 Breakfast 100% Diet Tolerated Well Fair Lunch 100% Supper 75% Temperature Pulse Rate Blood Pressure 11/29/19 11/29/19 02:00 06:00 Breakfast Diet Tolerated Lunch Supper Temperature 97.7 F Pulse Rate 67 66 Blood Pressure 112/48 L 101/60 Laboratory Tests 11/29/19 06:10 WBC 7.1 Tolerating diet. Improving cognitively. [place] considering acceptance for rehab Observe po tolerance. Consider trial of diet upgrade to dys ground/thin liquids
[2019-11-29 10:25] VITALS: BP 99/52; PULSE 74
--- NOTE | 2019-11-29 11:41 | PN ---
Progress Note (short form) - Note Progress Note: CC: fall s: no chest pain, palps, dizziness, dyspnea Current Medications Generic Name Dose Route Start Last Admin Trade Name Freq PRN Reason Stop Dose Admin Acetaminophen 1,000 mg 11/23/19 16:53 11/26/19 21:09 Tylenol - PO 1,000 mg Q6H PRN Administration PAIN LEVEL 1-5 Atorvastatin Calcium 10 mg 11/24/19 22:00 11/28/19 21:54 Lipitor - PO 10 mg HS NELSY Administration Colchicine 0.6 mg 11/26/19 10:00 11/29/19 09:36 Colcrys PO 0.6 mg DAILY NELSY Administration Levothyroxine Sodium 100 mcg 11/24/19 07:00 11/29/19 06:43 Synthroid - PO 100 mcg 0700 NELSY Administration Lisinopril 5 mg 11/24/19 10:00 11/29/19 09:37 Prinivil PO Not Given DAILY NELSY Metoprolol Succinate 25 mg 11/24/19 10:00 11/29/19 09:37 Toprol Xl - PO Not Given DAILY NELSY Pantoprazole Sodium 40 mg 11/24/19 10:00 11/29/19 09:36 Protonix - PO 40 mg DAILY NELSY Administration Quetiapine Fumarate 12.5 mg 11/24/19 22:00 11/28/19 21:54 Seroquel - PO 12.5 mg HS NELSY Administration Spironolactone 25 mg 11/26/19 11:45 11/29/19 09:36 Aldactone - PO 25 mg DAILY NELSY Administration Vital Signs Period Temp Pulse Resp BP Sys/Yañez Pulse Ox Last 24 Hr 97.6 F-98.2 F 64-77 18-20 99-129/48-76 92-99 nad no jvd irreg s1s2 nomrg cta bl nl eff awake alert oriented abd nd nt pos bs no jaundice diaphoresis pos dp pt no carotid bruits no le e/c/c tele: afib, rate ok ekg: afib rate ok. incomplete lbbb. non-specific t wave ab. no sig change prior Echo 10/2015: Mild global HK (more prominent HK at basal and mid milner) EF 45- 50%. Mild RV dil with mildly depressed sys function. Severe ANNELIESE. Mild , Mild AR. Borderline prolapse of anterior leaflet with moderate post directed MR. Moderate TR. Severe pHTN. Dilated IVC. (thought to be volume up at the time) Echo 11/2016: tds, mod-sev dec lvef, global hk, nl rv, mod anneliese, mild-mod mr, mod tr, mild phtn, mild-mod ar, mild as, mild ao root dil echo 11/2019: lvh, nl lvef, nl rv, anneliese, mild ar, mild as, mild-mod tr, mild phtn Cath 03/2015 [facility]: LVEDP 9. EF 40%. 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 fall, SAH: -neurosurgery and neurology following, monitoring for now -Eliquis has been held afib: - con't rate control with metoprolol - pt was on eliquis but had fall while at rehab and now here with SAH. AC held for now. - Given that he had fall at rehab it does not appear he is a safe candidate for AC at this time, as risk of fall/serious bleeding outweigh benefit. When possible would consider asa. If his fall risk improves post rehab then could reconsider AC. 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
--- NOTE | 2019-11-29 12:03 | PN ---
Progress Note, Physician History of Present Illness: Seen and examined at the bedside awake and alert no overnight events tolerating oral diet making urine - Current Medication List Current Medications: Active Medications Acetaminophen (Tylenol -) 1,000 mg PO Q6H PRN PRN Reason: PAIN LEVEL 1-5 Last Admin: 11/26/19 21:09 Dose: 1,000 mg Documented by: Atorvastatin Calcium (Lipitor -) 10 mg PO [facility] Last Admin: 11/28/19 21:54 Dose: 10 mg Documented by: Colchicine (Colcrys) 0.6 mg PO DAILY [facility] Last Admin: 11/29/19 09:36 Dose: 0.6 mg Documented by: Levothyroxine Sodium (Synthroid -) 100 mcg PO 0700 [facility] Last Admin: 11/29/19 06:43 Dose: 100 mcg Documented by: Lisinopril (Prinivil) 5 mg PO DAILY [facility] Last Admin: 11/29/19 09:37 Dose: Not Given Documented by: Metoprolol Succinate (Toprol Xl -) 25 mg PO DAILY [facility] Last Admin: 11/29/19 09:37 Dose: Not Given Documented by: Pantoprazole Sodium (Protonix -) 40 mg PO DAILY [facility] Last Admin: 11/29/19 09:36 Dose: 40 mg Documented by: Quetiapine Fumarate (Seroquel -) 12.5 mg PO [facility] Last Admin: 11/28/19 21:54 Dose: 12.5 mg Documented by: Spironolactone (Aldactone -) 25 mg PO DAILY [facility] Last Admin: 11/29/19 09:36 Dose: 25 mg Documented by: - Objective Vital Signs: Vital Signs Temperature 97.7 F 11/29/19 10:00 Pulse Rate 74 11/29/19 10:00 Respiratory Rate 18 11/29/19 10:00 Blood Pressure 99/52 L 11/29/19 10:00 O2 Sat by Pulse Oximetry (%) 95 11/29/19 02:00 Constitutional: Yes: No Distress, Calm HENT: Yes: Atraumatic Neck: Yes: Supple Cardiovascular: Yes: Regular Rate and Rhythm Respiratory: Yes: Regular Gastrointestinal: Yes: Soft Extremities: No: Cold, Cool, Cyanosis Edema: No Neurological: Yes: Alert Labs: CBC, BMP 11/29/19 06:10 11/29/19 06:10 INR, PTT INR 1.67 (0.83-1.09) H 11/22/19 00:20 Assessment/Plan 88 year old male with history of atrial fibrillation on Eliquis, hypertension, heart failrue, coronary artery disease, throat cancer, and hypothyroidism who presented s/p fall and found to have a subarachnoid hemorrhage and acute kidney injury with Cr of 2.2. 1. Acute kidney injury likely secondary to volume depletion +/- urinary retention 2. Subarachnoid hemorrhage 3. Atrial fibrillation on Eliquis 4. Hypertension 5. Coronary artery disease 6. Mild hyperkalemia 7. Hypermagnesemia in setting of renal insufficiency Renal function remains stable. Continue ACEi and aldactone. Oral solute intake as tolerated. f/u repeat CT shows no change Neurosurgery and neurology follow up Discharge planning as per primary team. Js Judge DO
--- NOTE | 2019-11-29 12:16 | PN ---
Teaching Attending Note Name of Resident: Santhosh Cason ATTENDING PHYSICIAN STATEMENT I saw and evaluated the patient. I reviewed the resident's note and discussed the case with the resident. I agree with the resident's findings and plan as documented. SUBJECTIVE: Seen and examined at bedside. At mental baseline. Patient accepted for rehab at [facility] will be discharged today OBJECTIVE Last Vital Signs Temp Pulse Resp BP Pulse Ox 98.1 F 74 18 148/86 96 11/28/19 10:00 11/28/19 10:00 11/28/19 10:00 11/28/19 10:00 11/28/19 10:00 PE: GEN: NAD HEENT: NC/AT [facility] RESP: CTAB CARDS: RRR, -MRG ABD: soft, nt/nd +BS EXT: No swelling/Edema Neuro: Non-focal, A&OX3 Labs/Imaging: reviewed ASSESSMENT/PLAN 80-year-old female with past medical history of A. fib on Eliquis, CVA, hypertension, hyperlipidemia, gout, hypothyroidism, heart failure with reduced ejection fraction, recent admission for altered mental status and delirium, presents with [facility]Patient was found to have a subarachnoid hemorrhage which was stable on multiple CTs. Course was complicated by prerenal CASIE and a gout flare which were both successfully treated. Patient's Eliquis was discontinued and he will be discharged on aspirin daily for stroke prevention due to his high bleeding risk. Patient to be discharged otherwise on his home medications and should follow-up with nephrology as an outpatient for treatment of gout as he has had 2 flares in 1 month
[2019-11-29 12:58] LABS: URIC ACID 7.9 mg/dL (2.6-7.2)
--- NOTE | 2019-11-29 13:07 | DS ---
Physical Exam: SUBJECTIVE: Patient seen and examined OBJECTIVE: Vital Signs Period Temp Pulse Resp BP Sys/Yañez Pulse Ox Last 24 Hr 97.6 F-98.2 F 64-77 18-20 99-129/48-76 92-99 PHYSICAL EXAM GENERAL: The patient is awake, alert, and fully oriented, in no acute distress. HEAD: Normal with no signs of trauma. EYES: PERRL, extraocular movements intact, sclera anicteric, conjunctiva clear. ENT: Ears normal, nares patent, oropharynx clear without exudates, moist mucous membranes. NECK: Trachea midline, full range of motion, supple. LUNGS: Breath sounds equal, clear to auscultation bilaterally, no wheezes, no crackles, no accessory muscle use. HEART: Regular rate and rhythm, S1, S2 without murmur, rub or gallop. ABDOMEN: Soft, nontender, nondistended, normoactive bowel sounds, no guarding, no rebound, no hepatosplenomegaly, no masses. EXTREMITIES: 2+ pulses, warm, well-perfused, no edema. NEUROLOGICAL: Cranial nerves II through XII grossly intact. Normal speech, gait not observed. PSYCH: Normal mood, normal affect. SKIN: Warm, dry, normal turgor, no rashes or lesions noted. LABS Laboratory Results - last 24 hr 11/29/19 11/29/19 06:10 06:10 WBC 7.1 RBC 3.70 L Hgb 12.7 Hct 36.6 MCV 99.0 H MCH 34.3 H MCHC 34.6 RDW 12.6 Plt Count 159 MPV 10.0 Sodium 139 Potassium 4.9 Chloride 104 Carbon Dioxide 32 Anion Gap 4 L BUN 18.2 H Creatinine 1.3 Est GFR (CKD-EPI)AfAm 56.46 Est GFR (CKD-EPI)NonAf 48.72 Random Glucose 112 H Uric Acid 7.9 H Calcium 8.5 Phosphorus 2.9 Magnesium 2.1 Total Bilirubin 1.0 AST 28 ALT 41 Alkaline Phosphatase 105 Total Protein 6.6 Albumin 3.0 L HOSPITAL COURSE: Date of Admission:11/22/19 Date of Discharge: 11/29/19 Discharge Summary Problems reviewed: Yes Reason For Visit: SUBARACHNOID HEMORRHAGE Current Active Problems Acute kidney injury (Acute) SAH (subarachnoid hemorrhage) (Acute) Subarachnoid hemorrhage (Acute) Condition: Stable - Instructions Diet, Activity, Other Instructions: You were admitted to the hospital for evaluation after a fall. A CT scan of your brain revealed small amount of bleeding (subarachnoid hemorrhage). You were evaluated by the neurosurgeon and your repeat CT scans were stable. You had a flare of gout and were treated. We have changed your medications: You will STOP taking Eliquis. Instead you will take Aspirin 81mg daily for stroke prevention. Discuss this medication change with your primary care physician. Continue taking your other home medications as directed Follow up with your primary care physician within one -two days after discharge. A referral has been provided. Follow up with neurosurgeon Dr. Cormier within one week. A referral has been provided. Follow up with neurologist Dr. العلي within one week. A referral has been provided. Follow up with your Sales And Marketing Coordinator. A referral to Dr. Aleman has been provided. Return to the nearest emergency department if you experience worsening symptoms, subjective fevers, chills, shortness of breath, chest pain, palpitations, abdominal pain, nausea, vomiting, any trauma or loss of consciousness. Referrals: Tez Adams MD [Primary Care Provider] - Hernán Cormier MD, [facility] [Staff Physician] - Dane العلي MD [Staff Physician] - Yemi Aleman MD [Staff Physician] - Disposition: ALF FACILITY - Home Medications Comprehensive Discharge Medication List: Ambulatory Orders Lisinopril [Zestril] 5 mg PO DAILY 03/13/17 Spironolactone [Aldactone -] 25 mg PO DAILY 03/13/17 Furosemide [Lasix] 20 mg PO DAILY 11/01/19 Ipratropium/Albuterol Sulfate [Iprat-Albut 0.5-3(2.5) mg/3 ml] 1 amp IH Q4H PRN 11/01/19 Levothyroxine [Synthroid -] 100 mcg PO DAILY 11/01/19 Pravastatin Sodium 10 mg PO HS 11/01/19 Acetaminophen [Tylenol .Extra-Strength -] 1,000 mg PO Q6H PRN 11/23/19 Metoprolol Succinate [Toprol Xl] 50 mg PO DAILY 11/23/19 Aspirin [Mariano Chewable Aspirin] 81 mg PO DAILY 30 Days #30 tab.chew 11/29/19 Gabapentin 300 mg PO DAILY 11/29/19 Thiamine HCl 250 mg PO DAILY 11/29/19 - Discharge Referral Referred to [facility] No ATTENDING PHYSICIAN STATEMENT I saw and evaluated the patient. I reviewed the resident's note and discussed the case with the resident. I agree with the resident's findings and plan as documented. SUBJECTIVE: OBJECTIVE: ASSESSMENT AND PLAN:
== END 2019-11-29 15:15 | DRG 86 ==
LOC: JER 22:21 → JERBED 11-22 01:11 → JICU 11-22 14:18 → J4W 11-24 01:17
PROVIDERS: ADMIT Internal Medicine; ATTEND Internal Medicine
DX: S06.6X0A Traumatic subarachnoid hemorrhage without loss of consciousness, initial encounter (principal); N17.9 Acute kidney failure, unspecified; I50.20 Unspecified systolic (congestive) heart failure; E87.1 Hypo-osmolality and hyponatremia; I42.8 Other cardiomyopathies; I48.91 Unspecified atrial fibrillation; E87.5 Hyperkalemia; M21.372 Foot drop, left foot; R73.9 Hyperglycemia, unspecified; I11.0 Hypertensive heart disease with heart failure; E83.41 Hypermagnesemia; I25.10 Atherosclerotic heart disease of native coronary artery without angina pectoris; M10.9 Gout, unspecified; E03.9 Hypothyroidism, unspecified; R33.9 Retention of urine, unspecified; W19.XXXA Unspecified fall, initial encounter; Y93.89 Activity, other specified; Y92.128 Other place in nursing home as the place of occurrence of the external cause; Y99.9 Unspecified external cause status; F03.90 Unspecified dementia, unspecified severity, without behavioral disturbance, psychotic disturbance, mood disturbance, and anxiety; E78.5 Hyperlipidemia, unspecified
CPT/HCPCS: 36415; 70450-TC; 71045-TC-FY; 71250-TC; 72125-TC; 72192-TC; 74150-TC; 76775-TC; 80048; 80053; 81003; 82550; 82553; 82962; 83735; 84100; 84484; 84550; 85025; 85027; 85610; 85730; 87086; 87186; 93005; 93010; 93306-TC; 97116-GP; 97161-GP; 99285-25; U0003

== ENCOUNTER 2020-03-02 11:20 | Emergency (ER) | payer OTHER ==
[2020-03-02 11:36] VITALS: BP 83/50; PULSE 60; BMI 27.1
== END 2020-03-02 14:53 | disposition expired ==
LOC: JER 11:20
DX: J96.00 Acute respiratory failure, unspecified whether with hypoxia or hypercapnia (principal); I46.9 Cardiac arrest, cause unspecified
CPT/HCPCS: 99285-25